=== PATIENT | female | born 1960 | race African-American/Black ===

== ENCOUNTER → 2017-12-05 15:30 | Outpatient (CLI) | payer BC, SELFPAY ==
--- NOTE | 2017-12-05 15:33 | HPBD_ITS ---
STUDY: DUAL ENERGY X-RAY ABSORPTIOMETRY / DXA REASON FOR EXAM: Female, 57 years old. The patient is postmenopausal. No loss of height. TECHNIQUE: Bone Mineral Density (BMD) measurements of lumbar spine and bilateral hips were obtained. COMPARISON: Comparison is made with prior study dated October 29, 2015. FINDINGS: Lumbar Spine (L1-L4): g/cm2 (0.927) / T-score (-2.3) / Z-score (-2.1) Findings are suggestive of osteopenia with a moderate fracture risk. Left Femur Total: g/cm2 (0.899) / T-score (-0.9) / Z-score (-1.1) Left Femoral Neck: g/cm2 (0.793) / T-score (-1.8) / Z-score (-1.6) Right Femur Total: g/cm2 (0.859) / T-score (-1.2) / Z-score (-1.5) Right Femoral Neck: g/cm2 (0.740) / T-score (-2.1) / Z-score (-2.0) The T-Scores on the most recent prior examination were: Lumbar Spine (L1-L4): There has been worsening of bone density since the previous examination. Left Femur Total: which represents a worsening of 5.3%. Right Femur Total: which represents a worsening of 3.4%. HPBD/Dexa Bone Density Study (HP) IMPRESSION: The patient is considered osteopenic as outlined below according to World Tang Organization (WHO) criteria with a moderate fracture risk. There has been worsening of bone density since the previous examination. Reference Information: The T-score is the number of standard deviations above or below the standard which is normal for young adults at their peak bone mineral density. The World Health Organization (WHO) interprets the T-scores as follows: Above -1 Normal bone density Between -1 and -2.5 Osteopenia Equal to / or below -2.5 Osteoporosis As a practical clinical guideline, osteopenia may be graded as follows: Mild -1 through -1.5 Moderate -1.6 through -2.0 Severe -2.1 through -2.4 The Z-score is the number of standard deviations above or below age-matched controls. A Z-score of less than -1.5 would be considered abnormal. References: 1. NIH Osteoporosis and Related Bone Diseases http://www.osteo.org 2. International Society for Clinical Densitometry http://www.iscd.org 3. National Osteoporosis Foundation http://www.nof.org Electronically Signed: Deny Whiteside MD at 8:41 EST Tel [phone], Service support ,
== END ==
PROVIDERS: Family Provider Internal Medicine; PCP Internal Medicine; Visit Provider Internal Medicine
DX: Z78.0 Asymptomatic menopausal state (principal)
CPT/HCPCS: 77080

== ENCOUNTER 2024-04-16 13:20 | Emergency (ER) | payer BC, SELFPAY ==
[2024-04-16 13:21] VITALS: BP 125/91; PULSE 65; RESP 18; TEMP 36.1; O2SAT 100; BMI 32.0
[2024-04-16 14:09] LABS: White Blood Cells 0 SEEN /hpf (0-5)
[2024-04-16 14:12] LABS: Color, Urine Yellow (Yellow); Glucose, Dipstick Normal (Normal); Ketone-Dipstick Negative (Negative); Leukocyte Esterase-Dipstick Negative /ul (Negative); Nitrite-Dipstick Negative (Negative); Occult Blood-Urine 10 /ul (Negative); Protein-Dipstick 15 mg/dl (Negative); Urine Bilirubin Dipstick Negative (Negative); Urine Clarity Sl. Cloudy (Clear); Urine Urobilinogen Normal (Normal)
[2024-04-16 14:13] LABS: Absolute Lymphocyte Count 0.97 X10^3/uL (0.83-4.51); Basophil# 0.03 X10^3/uL; Basophil% 0.3 % (0-1); Hematocrit 41.3 % (37-47); Hemoglobin 13.3 g/dL (12.0-15.0); Lymphocyte # 0.97 X10^3/ul (0.83-4.51); Lymphocyte % 8.4 % (19-41); Mean Corp Hgb Conc 32.2 g/dL (32-36); Mean Corpuscular Hgb 28.4 pg (27.0-32.0); Mean Corpuscular Volume 88.2 fL (81-99); Mean Platelet Vol. 11.2 fl (6.2-12.0); Monocyte# 0.53 X10^3/uL; Monocyte% 4.6 % (0-10); NRBC Flagged by Analyzer 0 % (0-5); Neutrophil # 10.04 X10^3/uL (2.7-7.7); Neutrophil % 86.4 % (47-70); Platelet Count 255 K/mm3 (150-450); RBC Distribution Width CV 13.8 % (11.6-14.6); RBC Distribution Width SD 44.2 fl (35.1-43.9); Red Blood Count 4.68 M/mm3 (4.2-5.4); White Blood Count 11.6 K/mm3 (4.4-11.0)
[2024-04-16 14:22] LABS: Bacteria 1+ /hpf (None Seen); Hyaline Cast 0-5 SEEN /lpf (0-5); Mucous, Urine 1+ /hpf (<or=2+); Red Blood Cells-Urine 0-5 SEEN /hpf (0-5); Squamous Epithelial Cells - UA 0-5 SEEN /hpf (5-10)
[2024-04-16 14:28] LABS: AST(SGOT) 16 U/L (15-37); Alanine Aminotransfer ALT/SGPT 18 U/L (13-56); Albumin, Serum 3.9 g/dL (3.2-5.0); Alkaline Phosphatase 75 U/L (45-117); Anion Gap 6 (5-15); BUN 11 mg/dL (7-18); BUN/Creat Ratio 9.8 RATIO (10-20); Calcium,Total 9.7 mg/dL (8.5-10.1); Chloride 109 mmol/L (98-107); Creatinine, Serum 1.12 mg/dL (0.55-1.02); EST Glomerular Filtration Rate 52 mL/min (>60); Est Glom Filt Rate - Afr Amer 63 mL/min (>60); Estimated Creatinine Clearance 48.87 ml/min; Glucose 111 mg/dL (74-106); Potassium 3.9 mmol/L (3.5-5.1); Protein, Total 7.9 g/dL (6.4-8.2); Sodium Level 144 mmol/L (136-145)
--- NOTE | 2024-04-16 14:59 | CT_ITS ---
STUDY: CT ABDOMEN AND PELVIS WITH CONTRAST REASON FOR EXAM: Female, 64 years old. Abdominal pain. Vomiting. RADIATION DOSAGE (If Supplied By Facility): CTDIvol = ( 18.06 ) mGy, DLP = ( 933.30 ) mGycm TECHNIQUE: Transaxial images were obtained through the abdomen and pelvis without oral contrast. 100 ml of 100mL Isovue-300 contrast was administered. Sagittal and coronal images were reconstructed. Individualized dose optimization techniques were used for this CT. COMPARISON: No relevant prior comparison study available FINDINGS: LOWER THORAX: The visualized lung bases are clear. The visualized portions of the heart and pericardium are within normal limits. GALLBLADDER / BILE DUCTS: The patient is status post cholecystectomy. There is no intrahepatic biliary duct dilatation. The common bile duct is normal in caliber. There are no calcified ductal stones. LIVER: The liver is within normal limits. There are no suspicious hepatic lesions. SPLEEN: The spleen is normal in size. PANCREAS: The pancreas is within normal limits. ADRENAL GLANDS: The adrenal glands are within normal limits. KIDNEYS / BLADDER: There are no renal or ureteral stones. There is no hydronephrosis. There are no focal renal lesions. The urinary bladder is partially distended and appears grossly unremarkable. STOMACH / BOWEL: There is a small hiatal hernia. There is no bowel obstruction or inflammation. The appendix is visualized and appears normal. PERITONEUM/RETROPERITONEUM: There is a small amount of free fluid. There is no free air or fluid collection. There is no abnormal soft tissue mass identified. There is no abdominal or pelvic lymphadenopathy. VESSELS: The aorta is normal in caliber. The IVC is unremarkable. BONES: There are no destructive osseous lesions. SOFT TISSUES: The visualized soft tissues are within normal limits. CT/Abdomen/Pelvis W IV Cont ONLY IMPRESSION: Small amount of free fluid. No free air or fluid collection. No bowel obstruction or inflammation. Normal appendix. Small hiatal hernia. Normal kidneys. No hydronephrosis. Electronically Signed: Bj Campa MD at 16:16 EDT ,
--- NOTE | 2024-04-16 15:00 | EDS_ITS ---
HPI HPI - GI History of Present Illness Chief Complaint: Abd Pain Informant: patient and spouse/S.O. Narrative Narrative: 64-year-old female presenting to the emergency room with a chief complaint of abdominal pain and vomiting. Patient states that last night around 0000 hrs. she developed a periumbilical abdominal pain. It continued to hurt and she went to work this morning. She states that after only a couple hours she needed to l eave work. She subsequently has developed some vomiting. She notes the abdominal pain seems to be significantly improving at the time of the examination. She notes that it had been radiating to her back. She states that she is not feeling nauseated. She denies any fevers. She had a small bowel movement which she describes as normal this morning. No recent travel o bad food exposures. Her is not feeling ill. She notes a prior cholecystectomy. PFSH PFS Home Medications ?Medication ?Instructions ?Recorded ?Last Taken ?Type metformin 500 mg tablet 500 mg PO 04/16/24 Unknown History rosuvastatin 5 mg tablet 5 mg PO DAILY 04/16/24 Unknown History Allergy/AdvReac Type Severity Reaction Status Date / Time No Known Allergies Allergy Verified 04/16/24 13:21 Surgical History (Updated 04/16/24 @ 15:[address] Chucho Moore DO) Hx of cholecystectomy Social History Smoking Status: Never smoker ROS ROS ED Constitutional Constitutional ED: Denies chills, fever(s) or weight loss Eyes Eyes: Denies change in vision or diplopia ENT ENT ED: Denies ear pain, rhinorrhea or sore throat Cardiovascular Cardiovascular: Denies chest pain, orthopnea, palpitations or racing heartbeat Respiratory/Chest Respiratory/Chest: Denies cough, dyspnea or orthopnea Gastrointestinal Gastrointestinal: Reports abdominal pain, nausea and vomiting; Denies diarrhea Genitourinary Genitourinary ED: Denies dysuria, hematuria or urinary frequency Musculoskeletal Musculoskeletal: Reports back pain; Denies arthralgias or myalgias Integumentary Denies abscess or rash Neurologic Neurologic: Denies headache(s) or weakness Psychiatric Psychiatric: Denies anxiety, depression, suicidal ideation or suicidal thoughts Endocrine Endocrinology: Denies polydipsia, polyphagia or polyuria Allergic/Immunologic Allergic/Immunologic ED: Denies mouth swelling, tongue swelling or urticaria EXAM Physical Exam Const Vital Signs: 04/16/24 13:21 04/16/24 15:13 04/16/24 16:54 Temperature 96.9 F L Temperature Source Temporal Pulse Rate 65 81 81 Respiratory Rate 18 18 18 Blood Pressure 125/91 H 121/80 H 125/91 H Blood Pressure Mean 102 93 102 Pulse Ox 100 98 98 Oxygen Delivery Method Room Air Room Air Room Air Positive well nourished and well developed General Appearance ED: well developed and NAD HEENT Reports normocephalic, head/scalp atraumatic and moist mucous membranes Eyes PERRL and EOMs intact bilaterally Neck no lymphadenopathy, supple and no JVD Resp normal respiratory effort and clear to auscultation bilaterally Cardio regular rate, regular rhythm and no murmurs GI normal to inspection, nondistended, normoactive bowel sounds and non-tender Inspection: Negative for abdominal distention Auscultation: normoactive bowel sounds Palpation: soft Back/Spine no CVA tenderness and normal ROM Extremity normal to inspection General Extremety ED: Negative for edema General Extremity: Negative for edema Neuro oriented x3 and CN's II-XII intact bilaterally Sensorium / Orientation: alert Motor Exam: strength 5/5 throughout Psych mental status grossly normal Mood & Affect: Negative for depressed or tearful Skin no rashes or lesions noted and no wounds MDM MDM MDM Narrative Medical decision making narrative: Differential diagnosis includes but not limited to viral and bacterial gastroenteritis, pancreatitis, bowel obstruction, choledocholithiasis, hepatitis, colitis, diverticulitis. White count returned slightly elevated 11.6 with no left shift. BMP shows a creatinine 1.12 glucose 111 and total bilirubin of 1.30. Lipase is normal at 29. Urinalysis shows no overt infection. CT of the abdomen pelvis with IV contrast was obtained. This shows a small amount of free fluid but otherwise no acute findings. Patient is feeling better than when she initially came in. Patient will be discharged home with instructions to monitor for new or worsening symptoms. If she is not improving worsening or has concerns I encouraged her to return to emergency. Patient is comfortable with this plan. History & Record Review Discussion w/independent historian: Patient and Significant other Lab Data Attestation: I reviewed the patient's lab results. Labs: Laboratory Results - last 24 hr 04/16/24 14:05 WBC 11.6 H RBC 4.68 Hgb 13.3 Hct 41.3 MCV 88.2 MCH 28.4 MCHC 32.2 RDW Std Deviation 44.2 H RDW Coeff of Klaus 13.8 Plt Count 255 MPV 11.2 Immature Gran % (Auto) 0.300 Neut % (Auto) 86.4 H Lymph % (Auto) 8.4 L [place] % (Auto) 4.6 Eos % (Auto) 0.0 Baso % (Auto) 0.3 Absolute Neuts (auto) 10.0 H Absolute Lymphs (auto) 0.97 Nucleated RBC % 0 Sodium 144 Potassium 3.9 Chloride 109 H Carbon Dioxide 29.0 Anion Gap 6 BUN 11 Creatinine 1.12 H Estim Creat Clear Calc 48.87 Est GFR (MDRD) Af Amer 63 Est GFR (MDRD) Non-Af 52 L BUN/Creatinine Ratio 9.8 L Glucose 111 H Calcium 9.7 Total Bilirubin 1.30 H Direct Bilirubin 0.24 AST 16 ALT 18 Alkaline Phosphatase 75 Total Protein 7.9 Albumin 3.9 Globulin 4.0 Albumin/Globulin Ratio 1.0 Lipase 29 Urine Color Yellow Urine Clarity Sl. Cloudy Urine pH 5.0 Ur Specific [place] 1.020 Urine Protein 15 H Urine Glucose (UA) Normal Urine Ketones Negative Urine Occult Blood 10 H Urine Nitrite Negative Urine Bilirubin Negative Urine Urobilinogen Normal Ur Leukocyte Esterase Negative Urine RBC 0-5 SEEN Urine WBC 0 SEEN Ur Squamous Epith Cells 0-5 SEEN Urine Bacteria 1+ Hyaline Casts 0-5 SEEN Urine Mucus 1+ Radiography Diagnostic Testing: Clinical Impression(s) from Imaging Studies Abdomen/Pelvis CT 04/16/24 14:59 IMPRESSION: Small amount of free fluid. No free air or fluid collection. No bowel obstruction or inflammation. Normal appendix. Small hiatal hernia. Normal kidneys. No hydronephrosis. Electronically Signed: Bj Campa MD at 16:16 EDT , Discharge Plan Triage Chief Complaint: Abd Pain ED Provider: Chucho Moore Dx/Rx/DC Orders Clinical Impression: Abdominal pain, Vomiting Instructions: ED Abdominal Pain Unkn Cause Fem Primary Care Provider: Jose Reyes Referrals: Jose Reyes MD [Primary Care Provider] - 1-2 Days if not improving Print Language: Tamazight Disposition Disposition: Home, Self Care
[2024-04-16 15:13] VITALS: BP 121/80; PULSE 81; RESP 18; O2SAT 98
[2024-04-16 15:34] LABS: Bilirubin, Direct 0.24 mg/dL (0.00-0.30); Lipase 29 U/L (13-75)
[2024-04-16 16:54] VITALS: BP 125/91; PULSE 81; RESP 18; O2SAT 98
== END 2024-04-16 17:13 | disposition home or self-care (01) ==
PROVIDERS: Emergency Provider Emergency Medicine; PCP Family Medicine; Visit Provider Emergency Medicine
DX: R10.9 Unspecified abdominal pain (principal); R11.10 Vomiting, unspecified; Z90.49 Acquired absence of other specified parts of digestive tract; Z79.84 Long term (current) use of oral hypoglycemic drugs; Z79.899 Other long term (current) drug therapy; K44.9 Diaphragmatic hernia without obstruction or gangrene
CPT/HCPCS: 74177; 80053; 81001; 82248; 83690; 85025; 99282; Q9967; A4216

== ENCOUNTER 2024-06-04 09:05 | Emergency (ER) | payer BC, SELFPAY ==
[2024-06-04 09:06] VITALS: BP 149/92; PULSE 89; RESP 17; TEMP 36.4; O2SAT 96; BMI 30.7
[2024-06-04 09:07] VITALS: BP 149/92; PULSE 89; RESP 17; TEMP 36.4; O2SAT 96
--- NOTE | 2024-06-04 09:21 | CT_ITS ---
STUDY: CT ABDOMEN AND PELVIS WITHOUT CONTRAST REASON FOR EXAM: Female, 64 years old. Kidney Stone RADIATION DOSAGE (If Supplied By Facility): CTDIvol = ( 9.18 ) mGy, DLP = ( 463.05 ) mGycm TECHNIQUE: Transaxial images were obtained from the dome of the diaphragm to the symphysis pubis without oral contrast, and without intravenous contrast. Sagittal and coronal images were reconstructed. Individualized dose optimization techniques were used for this CT. COMPARISON: Comparison is made with prior study dated April 16, 2024. FINDINGS: The visualized lung bases are unremarkable. The visualized portions of the heart are within normal limits. Normal liver. There are surgical clips in the gallbladder fossa consistent with a prior cholecystectomy. Normal spleen. Normal pancreas. Normal bilateral adrenal glands. Tiny bilateral nonobstructive intrarenal calculi. No evidence of hydronephrosis. There is a small hiatal hernia. Normal small intestine. Normal colon. The appendix is visualized and appears normal. There is atherosclerotic calcification of the abdominal aorta, without a demonstrated aneurysm. Normal inferior vena cava. Normal retroperitoneum. Normal urinary bladder. Small amount of ascitic fluid is once again seen in the pelvis. Findings suggestive of prior hysterectomy. Normal abdominal wall. There are mild degenerative changes of the visualized lumbar spine. CT/Abdomen/Pelvis without Cont IMPRESSION: Tiny bilateral nonobstructive intrarenal calculi. No ureteral obstruction is seen. Small amount of ascitic fluid was again seen in the pelvis. Electronically Signed: Deny Whiteside MD at 10:20 EDT ,
[2024-06-04] MEDS: Morphine 4 MG/ML Syringe IV (09:28)
[2024-06-04] MEDS: 0.9% Normal Saline (1000mL) 1,000 ML 250 ML IV (09:28)
[2024-06-04] MEDS: Ketorolac 30 MG/ML Syringe IV (09:28)
[2024-06-04] MEDS: Ondansetron 4 MG/2 ML Vial IV (09:28)
[2024-06-04 09:36] LABS: Absolute Lymphocyte Count 0.75 X10^3/uL (0.83-4.51); Absolute Neutrophil Count 9.2 X10^3/uL (2.0-7.7); Basophil# 0.03 X10^3/uL; Basophil% 0.3 % (0-1); Eosinophil# 0.01 X10^3/uL; Eosinophils% 0.1 % (0-5); Hematocrit 39.1 % (37-47); Hemoglobin 12.9 g/dL (12.0-15.0); Lymphocyte # 0.75 X10^3/ul (0.83-4.51); Lymphocyte % 7.2 % (19-41); Mean Corpuscular Hgb 28.9 pg (27.0-32.0); Mean Corpuscular Volume 87.5 fL (81-99); Monocyte% 3.8 % (0-10); NRBC Flagged by Analyzer 0 % (0-5); Neutrophil # 9.15 X10^3/uL (2.7-7.7); Neutrophil % 88.1 % (47-70); Platelet Count 258 K/mm3 (150-450); RBC Distribution Width CV 13.7 % (11.6-14.6); RBC Distribution Width SD 43.5 fl (35.1-43.9); Red Blood Count 4.47 M/mm3 (4.2-5.4); White Blood Count 10.4 K/mm3 (4.4-11.0)
[2024-06-04 10:07] LABS: Bacteria 0 SEEN /hpf (None Seen); Mucous, Urine 0 SEEN /hpf (<or=2+)
[2024-06-04 10:12] LABS: Color, Urine Yellow (Yellow); Glucose, Dipstick Normal (Normal); Ketone-Dipstick Negative (Negative); Leukocyte Esterase-Dipstick Negative /ul (Negative); Nitrite-Dipstick Negative (Negative); Occult Blood-Urine 10 /ul (Negative); Protein-Dipstick 15 mg/dl (Negative); Urine Bilirubin Dipstick Negative (Negative); Urine Clarity Clear (Clear); Urine Urobilinogen Normal (Normal)
[2024-06-04 10:24] LABS: Hyaline Cast 0-5 SEEN /lpf (0-5); Red Blood Cells-Urine 0-5 SEEN /hpf (0-5); Squamous Epithelial Cells - UA 0-5 SEEN /hpf (5-10); White Blood Cells 0-5 SEEN /hpf (0-5)
[2024-06-04 10:26] LABS: Anion Gap 7 (5-15); BUN 11 mg/dL (7-18); BUN/Creat Ratio 9.1 RATIO (10-20); Calcium,Total 9.4 mg/dL (8.5-10.1); Chloride 107 mmol/L (98-107); Creatinine, Serum 1.21 mg/dL (0.55-1.02); EST Glomerular Filtration Rate 48 mL/min (>60); Est Glom Filt Rate - Afr Amer 58 mL/min (>60); Estimated Creatinine Clearance 44.29 ml/min; Glucose 108 mg/dL (74-106); Potassium 3.4 mmol/L (3.5-5.1); Sodium Level 141 mmol/L (136-145)
[2024-06-04 11:00] VITALS: BP 111/68; PULSE 88; RESP 18; TEMP 36.6; O2SAT 98
[2024-06-04 11:20] LABS: AST(SGOT) 18 U/L (15-37); Alanine Aminotransfer ALT/SGPT 16 U/L (13-56); Albumin, Serum 3.7 g/dL (3.2-5.0); Alkaline Phosphatase 68 U/L (45-117); Bilirubin, Direct 0.28 mg/dL (0.00-0.30); Globulin 4.2 g/dL (2.2-4.2); Lipase 28 U/L (13-75); Protein, Total 7.9 g/dL (6.4-8.2)
--- NOTE | 2024-06-04 12:12 | EDS_ITS ---
HPI History of Present Illness Chief Complaint: Abd Pain Informant: patient Narrative Narrative: 64-year-old female presenting to the emergency room chief complaint of abdominal pain and vomiting. Patient notes pain in the left flank periumbilical region beginning last night into today. She has been experiencing vomiting. No diarrhea. No urinary symptoms. She was seen in the emergency department a little over a month ago with similar symptoms had negative evaluation. She states she followed up with primary care. Patient had to leave work today due to her symptoms. No reported fever. PFSH PFSH Home Medications ?Medication ?Instructions ?Recorded ?Last Taken ?Type metformin 500 mg tablet 500 mg PO 04/16/24 Unknown History rosuvastatin 5 mg tablet 5 mg PO DAILY 04/16/24 Unknown History hydrocodone-acetaminophen 5-325mg 1 tab PO Q6H PRN PRN Pain 3 days 06/04/24 Unknown Rx 5mg-325mg #10 TABLETS ondansetron 4 mg disintegrating 4 mg PO Q6H PRN PRN Nausea #10 tabs 06/04/24 Unknown Rx tablet Allergy/AdvReac Type Severity Reaction Status Date / Time No Known Allergies Allergy Verified 06/04/24 09:08 Surgical History Hx of cholecystectomy Social History Smoking Status: Never smoker ROS ROS ED Constitutional Constitutional ED: Denies chills, fever(s) or weight loss Eyes Eyes: Denies change in vision or diplopia ENT ENT ED: Denies ear pain, rhinorrhea or sore throat Cardiovascular Cardiovascular: Denies chest pain, orthopnea, palpitations or racing heartbeat Respiratory/Chest Respiratory/Chest: Denies cough, dyspnea or orthopnea Gastrointestinal Gastrointestinal: Reports abdominal pain, nausea and vomiting; Denies diarrhea Genitourinary Genitourinary ED: Denies dysuria, hematuria or urinary frequency Musculoskeletal Musculoskeletal: Reports other Details: Left flank pain ; Denies arthralgias or myalgias Integumentary Denies abscess or rash Neurologic Neurologic: Denies headache(s) or weakness Psychiatric Psychiatric: Denies anxiety, depression, suicidal ideation or suicidal thoughts Endocrine Endocrinology: Denies polydipsia, polyphagia or polyuria Allergic/Immunologic Allergic/Immunologic ED: Denies mouth swelling, tongue swelling or urticaria EXAM Physical Exam Const Vital Signs: 06/04/24 09:06 06/04/24 09:07 06/04/24 11:00 Temperature 97.5 F L 97.5 F L 97.9 F Temperature Source Temporal Temporal Temporal Pulse Rate 89 89 88 Respiratory Rate 17 17 18 Blood Pressure 149/92 H 149/92 H 111/68 Blood Pressure Mean 111 111 82 Pulse Ox 96 96 98 Oxygen Delivery Method Room Air Room Air Room Air Positive well nourished and well developed General Appearance ED: well developed HEENT Reports normocephalic, head/scalp atraumatic and moist mucous membranes Eyes PERRL and EOMs intact bilaterally Neck no lymphadenopathy, supple and no JVD Resp normal respiratory effort and clear to auscultation bilaterally Cardio regular rate, regular rhythm and no murmurs GI Inspection: Negative for abdominal distention Auscultation: normoactive bowel sounds Palpation: soft and tender periumbilical Back/Spine no CVA tenderness and normal ROM Extremity normal to inspection General Extremety ED: Negative for edema General Extremity: Negative for edema Neuro oriented x3 and CN's II-XII intact bilaterally Sensorium / Orientation: alert Motor Exam: strength 5/5 throughout Psych mental status grossly normal Mood & Affect: Negative for depressed or tearful Skin no rashes or lesions noted and no wounds MDM MDM MDM Narrative Medical decision making narrative: Differential diagnosis includes but not limited to enteritis gastroenteritis volvulus small bowel obstruction ureterolithiasis UTI diverticulitis colitis White count 10.4 hemoglobin is 12.9 platelet count of 258. Creatinine 1.21 with a BUN of 11 CO2 27 anion gap of 7 total bilirubin 1.5 direct bilirubin 0.28. Normal transaminases and alkaline phosphatase. Normal lipase. Urinalysis essentially normal. CT of the abdomen pelvis demonstrates of free fluid in the pelvis which is not a new finding. Nonobstructive renal calculi noted. Patient received IV fluids Zofran morphine and Toradol with improvement. This point patient will be discharged home with pain and nausea medication. She was given return instructions. Return 24 hours if worsening or no improvement. Follow-up with primary care History & Record Review Discussion w/independent historian: Patient Additional record(s) reviewed:: Prior ED visit and Prior labs Lab Data Attestation: I reviewed the patient's lab results. Labs: Laboratory Results - last 24 hr 06/04/24 06/04/24 09:30 10:00 WBC 10.4 RBC 4.47 Hgb 12.9 Hct 39.1 MCV 87.5 MCH 28.9 MCHC 33.0 RDW Std Deviation 43.5 RDW Coeff of Klaus 13.7 Plt Count 258 MPV 11.0 Immature Gran % (Auto) 0.500 Neut % (Auto) 88.1 H Lymph % (Auto) 7.2 L [place] % (Auto) 3.8 Eos % (Auto) 0.1 Baso % (Auto) 0.3 Absolute Neuts (auto) 9.2 H Absolute Lymphs (auto) 0.75 L Nucleated RBC % 0 Sodium 141 Potassium 3.4 L Chloride 107 Carbon Dioxide 27.0 Anion Gap 7 BUN 11 Creatinine 1.21 H Estim Creat Clear Calc 44.29 Est GFR (MDRD) Af Amer 58 L Est GFR (MDRD) Non-Af 48 L BUN/Creatinine Ratio 9.1 L Glucose 108 H Calcium 9.4 Total Bilirubin 1.50 H Direct Bilirubin 0.28 AST 18 ALT 16 Alkaline Phosphatase 68 Total Protein 7.9 Albumin 3.7 Globulin 4.2 Lipase 28 Urine Color Yellow Urine Clarity Clear Urine pH 6.0 Ur Specific [place] 1.020 Urine Protein 15 H Urine Glucose (UA) Normal Urine Ketones Negative Urine Occult Blood 10 H Urine Nitrite Negative Urine Bilirubin Negative Urine Urobilinogen Normal Ur Leukocyte Esterase Negative Urine RBC 0-5 SEEN Urine WBC 0-5 SEEN Ur Squamous Epith Cells 0-5 SEEN Urine Bacteria 0 SEEN Hyaline Casts 0-5 SEEN Urine Mucus 0 SEEN Radiography Diagnostic Testing: Clinical Impression(s) from Imaging Studies Abdomen/Pelvis CT 06/04/24 09:21 IMPRESSION: Tiny bilateral nonobstructive intrarenal calculi. No ureteral obstruction is seen. Small amount of ascitic fluid was again seen in the pelvis. Electronically Signed: Deny Whiteside MD at 10:20 EDT , Discharge Plan Triage Chief Complaint: Abd Pain ED Provider: Chucho Moore Dx/Rx/DC Orders Clinical Impression: Abdominal pain, Vomiting Instructions: ED Abdominal Pain Unkn Cause Fem, ED Vomiting (Adult) Prescriptions: New hydrocodone-acetaminophen 5-325 mg tablet 1 tab PO Q6H PRN PRN (Reason: Pain) 3 Days Qty: 10 0RF ondansetron 4 mg tablet,disintegrating 4 mg PO Q6H PRN PRN (Reason: Nausea) Qty: 10 0RF No Action metformin 500 mg tablet 500 mg PO rosuvastatin 5 mg tablet 5 mg PO DAILY Primary Care Provider: Jose Reyes Referrals: Jose Reyes MD [Primary Care Provider] - 3-5 Days Print Language: Bolivian Disposition Disposition: Home, Self Care
[2024-06-04 12:17] VITALS: BP 99/55; PULSE 68; RESP 18; TEMP 36.4; O2SAT 99
--- NOTE | 2024-06-05 09:24 | CASEMGMT ---
Received notification from [facility] pharmacy that the medication ordered by Dr. Moore of hydrocodone-acetamin 5-325 was on backorder/unavailable. TC to pt. 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 Explained what med was. Pt states she is no longer having pain and she does not need this medication. Pt denies further needs.
== END 2024-06-04 12:29 | disposition home or self-care (01) ==
PROVIDERS: Emergency Provider Emergency Medicine; PCP Family Medicine; Visit Provider Emergency Medicine
DX: R10.9 Unspecified abdominal pain (principal); R11.10 Vomiting, unspecified
CPT/HCPCS: 74176; 80048; 80076; 81001; 83690; 85025; 96361; 96374; 96375; 99283; J7030; J2405

== ENCOUNTER 2024-12-30 16:55 | Emergency (ER) | payer BC, SELFPAY ==
[2024-12-30 16:56] VITALS: BP 129/103; PULSE 84; RESP 18; TEMP 36.2; O2SAT 100
--- NOTE | 2024-12-30 17:20 | EKG12_ITS ---
Test Reason : NAUSEA Blood Pressure : */* mmHG Vent. Rate : 96 BPM Atrial Rate : 96 BPM P-R Int : 168 ms QRS Dur : 98 ms QT Int : 416 ms P-R-T Axes : 52 45 50 degrees QTcB Int : 525 ms Normal sinus rhythm Nonspecific ST and T wave abnormality Prolonged QT Abnormal ECG Confirmed by Tito Walker [id number]), script editor TIFFANY WAYNE ([id number]) on 12/31/2024 10:58:01 AM Referred By: Confirmed By: Tito Walker
--- NOTE | 2024-12-30 17:21 | CT_ITS ---
PROCEDURE: CTA ABD/PELVIS W/WO CONTRAST REASON FOR EXAM: 64-year-old female, ABDOMINAL AND FLANK PAIN, nausea and vomiting and back pain. TECHNIQUE: CTA imaging of the abdomen and pelvis with intravenous contrast. 3D reconstructions. IV CONTRAST: Isovue-300 COMPARISON: CT abdomen pelvis 06/04/2024. FINDINGS: Aorta: Abdominal aorta is normal in size. No significant atherosclerotic plaque. No evidence of aneurysm or dissection. Iliac Arteries: Iliac arteries are normal in size with no significant plaque or stenosis. Mild calcific plaque of the bilateral internal iliac arteries. The celiac artery, SMA and LENA are widely patent without focal stenosis. The single bilateral renal arteries are widely patent without focal stenosis or occlusion. Other Findings: The heart is normal in size. Bibasilar atelectasis. The liver is normal in size without arterially enhancing mass. Prior cholecystectomy. No hydronephrosis or nephrolithiasis. Prior hysterectomy. Moderate-sized hiatal hernia. The bowel loops are normal in caliber. Contrast material opacifies the proximal large bowel. No ascites or pneumoperitoneum. Normal appendix. Thoracolumbar spondylosis. CT/CTA Abd/Pelvis W/WO Contrast IMPRESSION: 1. Patent aortoiliac visceral arteries. 2. Moderate size hiatal hernia. One or more dose reduction techniques were used (e.g., Automated exposure contr ol, adjustment of the mA and/or kV according to patient size, use of iterative reconstruction technique). Reading Location: [id number]
--- NOTE | 2024-12-30 17:27 | EX.ED.DYSGE1 ---
HPI <YVAN De La Cruz - Last Filed: 12/30/24 20:07> History of Present Illness Chief Complaint: Nausea/Vomiting Narrative Narrative: 64-year-old female with PMH of HTN, HLD, DM2, GERD developed right flank pain 5 days ago on a cruise. She vomited once after eating a burger. The pain worsened when she got off the cruise yesterday in [place] and she was seen at an emergency room, reports having a CT scan negative for kidney stones. She was given Toradol and felt better and flew home through [place] to [place] arriving this morning. This morning she is having severe right flank pain again with nausea and vomiting. No chest pain or shortness of breath. No fever or chills. No urinary symptoms or bowel changes. PFSH <YVAN De La Cruz - Last Filed: 12/30/24 20:07> PFSH Home Medications ?Medication ?Instructions ?Recorded ?Last Taken ?Type metformin 500 mg tablet 500 mg PO 04/16/24 Unknown History rosuvastatin 5 mg tablet 5 mg PO DAILY 04/16/24 Unknown History hydrocodone-acetaminophen 5-325mg 1 tab PO Q6H PRN PRN Pain 3 days 06/04/24 Unknown Rx 5mg-325mg #10 TABLETS ondansetron 4 mg disintegrating 4 mg PO Q6H PRN PRN Nausea #10 tabs 06/04/24 Unknown Rx tablet diazepam 5 mg tablet (Valium) 5 mg PO BID PRN muscle spasm 5 12/30/24 Unknown Rx days #10 tabs Allergy/AdvReac Type Severity Reaction Status Date / Time No Known Allergies Allergy Verified 12/30/24 16:56 Surgical History Hx of cholecystectomy Social History Smoking Status: Never smoker ROS <YVAN De La Cruz - Last Filed: 12/30/24 20:07> ROS ED ROS Narrative Constitutional: Negative for fever, chills, malaise. CVS: Negative for chest pain, syncope. Respiratory: Negative for shortness of breath, cough. GI: Positive for nausea, vomiting. Negative for abdominal pain, diarrhea, constipation, melena, hematochezia. : Negative for dysuria, hematuria or frequency. EXAM <YVAN De La Cruz - Last Filed: 12/30/24 20:07> Physical Exam Narrative Exam Narrative: CONST: Patient rolling around in bed in pain. EYES: Normal inspection. NECK: Normal inspection. RESP: No respiratory distress, CTAB. CVS: Regular rate and rhythm, no murmur, no gallop. ABD: Soft and nontender, no guarding or rebound, nondistended. Back: Normal inspection, no reproducible tenderness of the spine or back. SKIN: Color normal, no rash, warm, dry, intact. EXTREMITIES: Normal appearance, no pedal edema. 2+ radial and DP pulses are symmetric. 5/5 strength, normal sensation. NEURO: Alert and answering questions appropriately. PSYCH: Normal affect. Const Vital Signs: 12/30/24 16:56 12/30/24 19:44 Temperature 97.2 F L 98.2 F Temperature Source Temporal Pulse Rate 84 71 Respiratory Rate 18 18 Blood Pressure 129/103 H 150/82 H Blood Pressure Mean 111 104 Pulse Ox 100 99 Oxygen Delivery Method Room Air <Dr. Carlos A Velez DO - Last Filed: 12/30/24 23:48> Physical Exam Const Vital Signs: 12/30/24 16:56 12/30/24 19:44 Temperature 97.2 F L 98.2 F Temperature Source Temporal Pulse Rate 84 71 Respiratory Rate 18 18 Blood Pressure 129/103 H 150/82 H Blood Pressure Mean 111 104 Pulse Ox 100 99 Oxygen Delivery Method Room Air MDM <YVAN De La Cruz - Last Filed: 12/30/24 20:07> [facility] Narrative Medical decision making narrative: History gathered from: Patient and Differential includes but not limited to kidney stone, dissection, intra-abdominal process, muscle spasm 64-year-old female presents with generalized back pain. It occurred earlier this week and she had workup at another emergency room out of state. Symptoms flared again today. She appears uncomfortable and is rolling around in bed. Vital signs are stable. She is a normal cardiopulmonary exam. Her abdomen is soft and nontender. She has no reproducible tenderness of her back. Her is massaging her back which seems to help slightly. Upper and lower extremities are neurovascularly intact. Symmetric pulses. She reports having a normal CT scan to rule out kidney stone earlier in the week so I ordered a CTA to rule out any vascular process. CTA is unremarkable. There is a moderate-sized hiatal hernia but this does not correlate with her symptoms. CBC unremarkable. CMP shows glucose of 122, CO2 20, gap 17. Electrolytes and renal function are normal. She was given IV fluids, IV Toradol x 1, IV morphine x 2, and p.o. Valium. She seems to be resting comfortably when observed from the hallway and she was able to ambulate easily to the bathroom. She reported some increased pain when I reexamined her but exam is still overall benign. I prescribed Valium and recommended [id number] pain relievers. Return to ED if symptoms worsen. She was discharged in stable condition. Lab Data Attestation: I reviewed the patient's lab results. Labs: Laboratory Results - last 24 hr 12/30/24 12/30/24 17:25 18:40 WBC 8.5 RBC 4.37 Hgb 12.8 Hct 38.5 MCV 88.1 MCH 29.3 MCHC 33.2 RDW Std Deviation 42.7 RDW Coeff of Klaus 13.2 Plt Count 214 MPV 11.4 Immature Gran % (Auto) 0.400 Neut % (Auto) 86.7 H Lymph % (Auto) 7.2 L [place] % (Auto) 5.0 Eos % (Auto) 0.1 Baso % (Auto) 0.6 Absolute Neuts (auto) 7.4 Absolute Lymphs (auto) 0.61 L Nucleated RBC % 0 Sodium 143 Potassium 3.6 Chloride 107 Carbon Dioxide 20.0 L Anion Gap 17 H BUN 13 Creatinine 1.20 Est GFR (MDRD) Non-Af 51 L BUN/Creatinine Ratio 10.9 Glucose 122 H Calcium 9.5 Urine Color Yellow Urine Clarity Clear Urine pH 8.0 Ur Specific [place] 1.010 Urine Protein 15 H Urine Glucose (UA) Normal Urine Ketones 15 H Urine Occult Blood 10 H Urine Nitrite Negative Urine Bilirubin Negative Urine Urobilinogen Normal Ur Leukocyte Esterase Negative Urine RBC 0-5 SEEN Urine WBC 0 SEEN Ur Squamous Epith Cells 0-5 SEEN Urine Bacteria 0 SEEN Urine Mucus 0 SEEN Radiography Diagnostic Testing: Clinical Impression(s) from Imaging Studies Abdomen/Pelvis CTA 12/30/24 17:21 IMPRESSION: 1. Patent aortoiliac visceral arteries. 2. Moderate size hiatal hernia. One or more dose reduction techniques were used (e.g., Automated exposure control, adjustment of the mA and/or kV according to patient size, use of iterative reconstruction technique). Reading Location: [id number] <Dr. Carlos A Velez, DO - Last Filed: 12/30/24 23:48> [facility] Narrative Medical decision making narrative: History gathered from: Patient and Differential includes but not limited to kidney stone, dissection, intra-abdominal process, muscle spasm 64-year-old female presents with generalized back pain. It occurred earlier this week and she had workup at another emergency room out of state. Symptoms flared again today. She appears uncomfortable and is rolling around in bed. Vital signs are stable. She is a normal cardiopulmonary exam. Her abdomen is soft and nontender. She has no reproducible tenderness of her back. Her is massaging her back which seems to help slightly. Upper and lower extremities are neurovascularly intact. Symmetric pulses. She reports having a normal CT scan to rule out kidney stone earlier in the week so I ordered a CTA to rule out any vascular process. CTA is unremarkable. There is a moderate-sized hiatal hernia but this does not correlate with her symptoms. CBC unremarkable. CMP shows glucose of 122, CO2 20, gap 17. Electrolytes and renal function are normal. She was given IV fluids, IV Toradol x 1, IV morphine x 2, and p.o. Valium. She seems to be resting comfortably when observed from the hallway and she was able to ambulate easily to the bathroom. She reported some increased pain when I reexamined her but exam is still overall benign. I prescribed Valium and recommended [id number] pain relievers. Return to ED if symptoms worsen. She was discharged in stable condition. Attending note: I have personally performed a face to face assessment of the patient and have reviewed the DRISS note. I personally made/approved the management plan and take responsibility for the patient management. I performed a substantive portion of the visit including all aspects of the following. My alcaraz findings include: Nontraumatic flank pain returning from a cruise. Started at the cruise. She came to [place] with outside emergency department kidney stone workup negative. Pain worsened today. Exam patient move around in bed in distress. No dyspnea lungs were normal heart regular. With reported negative renal stone workup with Noncon CT. Patient had CT angiogram ordered results negative. Did note hiatal hernia. Labs urine again negative. Initially treated with pain medicines, added Valium which helped her symptoms. She is able to ambulate to the restroom. She will prescribe continued Valium and outpatient follow-up with her doctor. Lab Data Labs: Laboratory Results - last 24 hr 12/30/24 12/30/24 17:25 18:40 WBC 8.5 RBC 4.37 Hgb 12.8 Hct 38.5 MCV 88.1 MCH 29.3 MCHC 33.2 RDW Std Deviation 42.7 RDW Coeff of Klaus 13.2 Plt Count 214 MPV 11.4 Immature Gran % (Auto) 0.400 Neut % (Auto) 86.7 H Lymph % (Auto) 7.2 L [place] % (Auto) 5.0 Eos % (Auto) 0.1 Baso % (Auto) 0.6 Absolute Neuts (auto) 7.4 Absolute Lymphs (auto) 0.61 L Nucleated RBC % 0 Sodium 143 Potassium 3.6 Chloride 107 Carbon Dioxide 20.0 L Anion Gap 17 H BUN 13 Creatinine 1.20 Est GFR (MDRD) Non-Af 51 L BUN/Creatinine Ratio 10.9 Glucose 122 H Calcium 9.5 Urine Color Yellow Urine Clarity Clear Urine pH 8.0 Ur Specific [place] 1.010 Urine Protein 15 H Urine Glucose (UA) Normal Urine Ketones 15 H Urine Occult Blood 10 H Urine Nitrite Negative Urine Bilirubin Negative Urine Urobilinogen Normal Ur Leukocyte Esterase Negative Urine RBC 0-5 SEEN Urine WBC 0 SEEN Ur Squamous Epith Cells 0-5 SEEN Urine Bacteria 0 SEEN Urine Mucus 0 SEEN Radiography Diagnostic Testing: Clinical Impression(s) from Imaging Studies Abdomen/Pelvis CTA 12/30/24 17:21 IMPRESSION: 1. Patent aortoiliac visceral arteries. 2. Moderate size hiatal hernia. One or more dose reduction techniques were used (e.g., Automated exposure control, adjustment of the mA and/or kV according to patient size, use of iterative reconstruction technique). Reading Location: [facility] Discharge Plan Triage Chief Complaint: Nausea/Vomiting Other Complaint: Back ED Midlevel Provider: Indira Oates ED Provider: Carlos A Velez Dx/Rx/DC Orders Clinical Impression: Back pain, Muscle spasm, Hernia, hiatal Instructions: Back Basics: A Healthy Spine, ED Muscle Spasm Prescriptions: New diazepam [Valium] 5 mg tablet 5 mg PO BID PRN (Reason: muscle spasm) 5 Days Qty: 10 0RF No Action hydrocodone-acetaminophen 5-325 mg tablet 1 tab PO Q6H PRN PRN (Reason: Pain) 3 Days Qty: 10 0RF ondansetron 4 mg tablet,disintegrating 4 mg PO Q6H PRN PRN (Reason: Nausea) Qty: 10 0RF metformin 500 mg tablet 500 mg PO rosuvastatin 5 mg tablet 5 mg PO DAILY Primary Care Provider: Jose Reyes Referrals: Jose Reyes MD [Primary Care Provider] - Activity Restrictions/Additional Instructions: Your blood work and CT scan of your abdomen and pelvis show no findings to explain your pain. I recommend Tylenol and Advil every 6 hours as needed. Use the Valium for breakthrough pain or muscle spasms. Follow-up with your primary care doctor this week. Print Language: Pakistani Disposition Disposition: Home, Self Care Discharge Date/Time: 12/30/24 20:00
[2024-12-30] MEDS: Ondansetron 4 MG/2 ML Vial IV (17:38)
[2024-12-30] MEDS: 0.9% Normal Saline (1000mL) 1,000 ML 999 ML IV (17:38)
[2024-12-30] MEDS: Ketorolac 15 MG/ML Vial IV ×2 (17:38→19:46)
[2024-12-30] MEDS: Morphine 4 MG/ML Syringe IV ×2 (17:38→18:21)
[2024-12-30 18:00] LABS: Absolute Lymphocyte Count 0.61 X10^3/uL (0.83-4.51); Absolute Neutrophil Count 7.4 X10^3/uL (2.0-7.7); Basophil# 0.05 X10^3/uL; Basophil% 0.6 % (0-1); Eosinophil# 0.01 X10^3/uL; Eosinophils% 0.1 % (0-5); Hematocrit 38.5 % (37-47); Hemoglobin 12.8 g/dL (12.0-15.0); Lymphocyte # 0.61 X10^3/ul (0.83-4.51); Lymphocyte % 7.2 % (19-41); Mean Corp Hgb Conc 33.2 g/dL (32-36); Mean Corpuscular Hgb 29.3 pg (27.0-32.0); Mean Corpuscular Volume 88.1 fL (81-99); Mean Platelet Vol. 11.4 fl (6.2-12.0); Monocyte# 0.43 X10^3/uL; NRBC Flagged by Analyzer 0 % (0-5); Neutrophil # 7.39 X10^3/uL (2.7-7.7); Neutrophil % 86.7 % (47-70); Platelet Count 214 K/mm3 (150-450); RBC Distribution Width CV 13.2 % (11.6-14.6); RBC Distribution Width SD 42.7 fl (35.1-43.9); Red Blood Count 4.37 M/mm3 (4.2-5.4); White Blood Count 8.5 K/mm3 (4.4-11.0)
[2024-12-30 18:14] LABS: Anion Gap 17 (5-15); BUN 13 mg/dL (4-19); BUN/Creat Ratio 10.9 RATIO (10-20); Calcium,Total 9.5 mg/dL (7.6-11.0); Chloride 107 mmol/L (98-108); EST Glomerular Filtration Rate 51 (>60); Glucose 122 mg/dL (70-99); Potassium 3.6 mmol/L (3.3-5.1); Sodium Level 143 mmol/L (133-145)
[2024-12-30] MEDS: diazePAM 5 MG Tablet PO (18:28)
[2024-12-30 18:44] LABS: Bacteria 0 SEEN /hpf (None Seen); Mucous, Urine 0 SEEN /hpf (<or=2+); White Blood Cells 0 SEEN /hpf (0-5)
[2024-12-30 19:06] LABS: Color, Urine Yellow (Yellow); Glucose, Dipstick Normal (Normal); Ketone-Dipstick 15 mg/dl (Negative); Leukocyte Esterase-Dipstick Negative /ul (Negative); Nitrite-Dipstick Negative (Negative); Occult Blood-Urine 10 /ul (Negative); Protein-Dipstick 15 mg/dl (Negative); Urine Bilirubin Dipstick Negative (Negative); Urine Clarity Clear (Clear); Urine Urobilinogen Normal (Normal)
[2024-12-30 19:44] VITALS: BP 150/82; PULSE 71; RESP 18; TEMP 36.8; O2SAT 99
[2024-12-30 19:54] LABS: Red Blood Cells-Urine 0-5 SEEN /hpf (0-5); Squamous Epithelial Cells - UA 0-5 SEEN /hpf (5-10)
== END 2024-12-30 20:00 | disposition home or self-care (01) ==
PROVIDERS: Physician Assistant; Emergency Provider Emergency Medicine; PCP Family Medicine; Visit Provider Emergency Medicine
DX: M54.9 Dorsalgia, unspecified (principal); E11.9 Type 2 diabetes mellitus without complications; K44.9 Diaphragmatic hernia without obstruction or gangrene; R11.2 Nausea with vomiting, unspecified; M62.838 Other muscle spasm; I10 Essential (primary) hypertension; E78.5 Hyperlipidemia, unspecified; K21.9 Gastro-esophageal reflux disease without esophagitis
CPT/HCPCS: 74174; 80048; 81001; 85025; 93005; 96374; 96375; 96376; 99284; Q9967; A4216; J2405

== ENCOUNTER 2024-12-31 15:29 | Emergency (ER) | payer BC, SELFPAY ==
[2024-12-31] VITALS (21 sets, daily range): BP systolic 96–137; BP diastolic 50–118; PULSE 45–69; RESP 13–20; TEMP 36.7–36.8; O2SAT 94–100; BMI 32.3
--- NOTE | 2024-12-31 15:48 | EKG12_ITS ---
Test Reason : GENERAL Blood Pressure : */* mmHG Vent. Rate : 55 BPM Atrial Rate : 55 BPM P-R Int : 136 ms QRS Dur : 86 ms QT Int : 476 ms P-R-T Axes : 25 3 57 degrees QTcB Int : 455 ms Sinus bradycardia T wave abnormality, consider anterior ischemia Abnormal ECG Confirmed by MARIELA LARSON, RIGO ([id number]), editor managing newspaper TIFFANY WAYNE ([id number]) on 01/06/2025 11:18:59 AM Referred By: Confirmed By: RIGO SIERRA MD
--- NOTE | 2024-12-31 15:50 | EX.ED.DYSGE1 ---
HPI History of Present Illness Chief Complaint: Flank Pain Informant: patient and spouse/S.O. Narrative Narrative: Patient sent in from PCP office for reevaluation. Note was seen yesterday in the ED. Patient returned from a cruise this past Monday. Started having some flank pain she went to [place] she was seen in the ER there. Kidney stone rule out was negative. She returned yesterday for increasing pain. She was worked up had a CT angiogram abdomen pelvis that was negative. Symptoms were improving with pain medicines and muscle relaxers. However per spouse symptoms worsened this morning. Went to PCP office. Due to discomfort sent here for reevaluation. Last dose of Valium 2 PM. Hypertension diabetes hyperlipidemia. Denies history of PE or DVT. States stational dyspnea. No upper back pain. No chest pains. Denies any pain down her legs. Per spouse she is on and off back pain since he normal for 40 years. Unclear if ever had an MRI. Prior similar symptoms: Yes PFSH PFSH Home Medications ?Medication ?Instructions ?Recorded ?Last Taken ?Type metformin 500 mg tablet 500 mg PO DAILY 04/16/24 12/30/24 History rosuvastatin 5 mg tablet 5 mg PO DAILY 04/16/24 12/30/24 History diazepam 5 mg tablet (Valium) 5 mg PO BID PRN muscle spasm 5 12/30/24 Unknown Rx days #10 tabs benazepril 20 mg tablet 20 mg PO DAILY 12/31/24 12/30/24 History gabapentin 300 mg capsule 300 mg PO QHS #30 caps 12/31/24 Unknown Rx hydrochlorothiazide 25 mg tablet 25 mg PO DAILY 12/31/24 12/30/24 History hydrocodone-acetaminophen 5-325mg 1 tab PO Q6H PRN Pain 12/31/24 Unknown History 5mg-325mg ondansetron 4 mg disintegrating 4 mg PO Q6H PRN Nausea 12/31/24 Unknown History tablet oxycodone-acetaminophen 5 mg-325 1 tab PO Q6H PRN PRN Pain 3 days 12/31/24 Unknown Rx mg tablet #12 TABLETS pantoprazole 40 mg tablet,delayed 40 mg PO DAILY 12/31/24 12/30/24 History release Allergy/AdvReac Type Severity Reaction Status Date / Time No Known Allergies Allergy Verified 12/31/24 15:31 Surgical History Hx of cholecystectomy Social History Smoking Status: Never smoker ROS ROS ED Constitutional Constitutional ED: Denies chills, fever(s) or sweats ENT ENT ED: Denies sore throat Cardiovascular Cardiovascular: Denies chest pain, leg edema, palpitations or racing heartbeat Respiratory/Chest Respiratory/Chest: Denies cough, dyspnea or dyspnea on exertion Gastrointestinal Gastrointestinal: Reports nausea and vomiting; Denies abdominal pain or diarrhea Genitourinary Genitourinary ED: Denies dysuria, hematuria or urinary frequency Musculoskeletal Musculoskeletal: Reports back pain; Denies extremity pain or neck pain Integumentary Denies rash or wounds Neurologic Neurologic: Denies headache(s), paresthesias or weakness EXAM Physical Exam Const Vital Signs: 12/31/24 15:31 12/31/24 17:30 12/31/24 17:45 Temperature 98.2 F Temperature Source Oral Pulse Rate 69 45 L 51 L Respiratory Rate 14 17 18 Blood Pressure 137/118 H 106/50 L 96/58 L Blood Pressure Mean 124 65 71 Pulse Ox 97 94 100 Oxygen Delivery Method Room Air 12/31/24 18:00 12/31/24 18:01 12/31/24 18:15 Temperature Temperature Source Pulse Rate 56 L 52 L Respiratory Rate 18 20 H Blood Pressure 112/71 99/64 Blood Pressure Mean 85 75 Pulse Ox 97 98 Oxygen Delivery Method Room Air 12/31/24 18:30 12/31/24 18:45 12/31/24 19:00 Temperature Temperature Source Pulse Rate 52 L 50 L 54 L Respiratory Rate 17 16 14 Blood Pressure 98/62 102/60 104/60 Blood Pressure Mean 74 73 74 Pulse Ox 98 96 97 Oxygen Delivery Method Room Air Room Air 12/31/24 19:15 12/31/24 19:30 12/31/24 19:31 Temperature Temperature Source Pulse Rate 55 L 51 L Respiratory Rate 16 17 Blood Pressure 105/59 L 105/57 L Blood Pressure Mean 73 72 Pulse Ox 98 97 Oxygen Delivery Method 12/31/24 19:45 12/31/24 20:00 12/31/24 20:15 Temperature 98.1 F Temperature Source Oral Pulse Rate 53 L 53 L 50 L Respiratory Rate 17 14 15 Blood Pressure 104/63 112/59 L 103/57 L Blood Pressure Mean 77 76 72 Pulse Ox 97 99 99 Oxygen Delivery Method Room Air 12/31/24 20:30 12/31/24 20:45 12/31/24 21:00 Temperature Temperature Source Pulse Rate 49 L 48 L 68 Respiratory Rate 13 18 19 H Blood Pressure 107/61 101/61 Blood Pressure Mean 75 74 Pulse Ox 98 97 Oxygen Delivery Method Room Air Room Air 12/31/24 21:15 12/31/24 21:30 12/31/24 21:45 Temperature Temperature Source Pulse Rate 49 L 53 L 49 L Respiratory Rate 16 13 19 H Blood Pressure Blood Pressure Mean Pulse Ox 98 97 99 Oxygen Delivery Method Positive well nourished and well developed Constitutional Narrative: Uncomfortable, nontoxic. General Appearance ED: well developed HEENT Reports moist mucous membranes normocephalic and atraumatic Eyes General Eye ED: Yes normal appearance of both eyes Neck full ROM Chest Wall inspection of chest normal and palpation of chest normal Chest: Negative for tenderness Resp normal respiratory effort and normal air movement Resp Narrative: Symmetric breath sounds. Effort and Inspection: symmetric chest movement; Negative for respiratory distress Cardio regular rate, regular rhythm and no murmurs Peripheral Pulses: pulses 2+ throughout GI normal to inspection, nondistended, normoactive bowel sounds and non-tender Palpation: Negative for guarding or rebound tenderness present Back/Spine Back/Spine Narrative: Unable to reproduce tenderness thoracic lumbar spine. No rib tenderness. No crepitus. Extremity normal to inspection General Extremety ED: Negative for edema or tenderness General Extremity: Negative for edema Neuro oriented x3 and no sensory deficits noted Sensorium / Orientation: awake and alert Skin no rashes or lesions noted and no wounds MDM MDM MDM Narrative Medical decision making narrative: Interventions / MDM: Differential diagnosis: Back pain, hiatal hernia, pulmonary nodule Diagnosis considered but do not suspect: N/A My EKG interpretation: Sinus rhythm rate of 55, no ST changes. T wave inversions anterior leads. Imaging independently reviewed and interpreted by myself: CT angiogram chest: No acute process. Subpleural right upper lobe nodule 3 mm. No PE no infarct. External documents reviewed: ED visit from yesterday CT angiogram abdomen pelvis with moderate hiatal hernia. No acute process. Test considered but not ordered:N/A ED course: Patient recurrent similar pain in her back. CT scan angiogram negative yesterday. She had recent travel. Discussed ordering CT angiogram the chest to rule out any possible pulmonary infarcts lower lobes. She agrees. IV established Dilaudid for pain control. Labs ordered. EKG sinus rhythm T wave versions anterior leads similar to previous. CT results negative. On reevaluation completely symptom-free feeling much better. T wave version anterior leads. I did add a troponin as this does not evaluate for atypical symptoms results returned at 16. With her symptoms ongoing for 2 days with this troponin, not likely ACS. Do not feel additional troponin is required. Reviewed her imagings from yesterday and today she did have mild osteoarthritic changes of her spine however no significant. I considered spinal radicular symptoms. Discussed this with her. She is a diabetic. Discussed adding gabapentin for neuropathic pain for which she agreed. She was ambulated emergency department with no return of symptoms. She has a known hiatal hernia seen Dr. Reid in the past report if she had any issues there would be plan for surgery. She is on a PPI. She will continue this. She is referred back to surgery. Patient second visit the ED I did discuss with her primary care team with on-call physician, discussed with her being symptom-free did not feel admission is required discussed possible spinal process discussed medication gabapentin she has Valium I will add oxycodone for symptom control. She is referred back to her surgeon. She will follow-up with her PCP. Discussed strict return precautions. We discussed the pulmonary nodule 3 mm. All questions were answered. Re-evaluation: stable Disposition discussed with patient/family/significant other: Patient and spouse Case discussed with consulting clinician: Primary care team This note was generated with Rep dictation software. It may contain incorrect words, spelling, and punctuation that were not noted in checking the note before signing. Lab Data Attestation: I reviewed the patient's lab results. Labs: Laboratory Results - last 24 hr 12/31/24 12/31/24 12/31/24 15:35 17:13 20:15 WBC 11.5 H RBC 4.42 Hgb 12.8 Hct 38.7 MCV 87.6 MCH 29.0 MCHC 33.1 RDW Std Deviation 42.2 RDW Coeff of Klaus 13.3 Plt Count 260 MPV 11.4 Immature Gran % (Auto) 0.400 Neut % (Auto) 79.7 H Lymph % (Auto) 10.1 L [place] % (Auto) 9.4 Eos % (Auto) 0.0 Baso % (Auto) 0.4 Absolute Neuts (auto) 9.1 H Absolute Lymphs (auto) 1.16 Nucleated RBC % 0 PT 14.8 INR 1.1 APTT 22.7 L Sodium 144 Potassium 3.5 Chloride 109 H Carbon Dioxide 23.7 Anion Gap 11 BUN 15 Creatinine 1.17 Estim Creat Clear Calc 46.97 L Est GFR (MDRD) Non-Af 53 L BUN/Creatinine Ratio 12.6 Glucose 96 Calcium 8.9 Troponin T High Sens 16 H Radiography Diagnostic Testing: Clinical Impression(s) from Imaging Studies Chest CTA 12/31/24 17:50 IMPRESSION: 1. No acute process. 2. Punctate subpleural nodule in the right upper lobe measuring 3 mm. [address] follow-up can be performed if the patient has clinical risk factors per Fleischner criteria. One or more dose reduction techniques were used (e.g., Automated exposure control, adjustment of the mA and/or kV according to patient size, use of iterative reconstruction technique). Reading Location: [facility] Discharge Plan Triage Chief Complaint: Flank Pain Other Complaint: Nausea/Vomiting ED Provider: Carlos A Velez Dx/Rx/DC Orders Clinical Impression: Back pain, Hernia, hiatal, Incidental pulmonary nodule, less than or equal to 3mm Instructions: What Is a Hiatal Hernia?, ED Back Care Tips Prescriptions: New oxycodone-acetaminophen 5-325 mg tablet 1 tab PO Q6H PRN PRN (Reason: Pain) 3 Days Qty: 12 0RF gabapentin 300 mg capsule 300 mg PO QHS Qty: 30 0RF No Action metformin 500 mg tablet 500 mg PO DAILY rosuvastatin 5 mg tablet 5 mg PO DAILY diazepam [Valium] 5 mg tablet 5 mg PO BID PRN (Reason: muscle spasm) 5 Days Qty: 10 0RF hydrocodone-acetaminophen 5-325 mg tablet 1 tab PO Q6H PRN (Reason: Pain) pantoprazole 40 mg tablet,delayed release (DR/EC) 40 mg PO DAILY benazepril 20 mg tablet 20 mg PO DAILY hydrochlorothiazide 25 mg tablet 25 mg PO DAILY ondansetron 4 mg tablet,disintegrating 4 mg PO Q6H PRN (Reason: Nausea) Primary Care Provider: Jose Reyes Referrals: Sussy Reid MD [Med Staff - Active Staff] - 1 Week Jose Reyes MD [Primary Care Provider] - 3-5 Days Activity Restrictions/Additional Instructions: You had worsening back pain last 2 days. You had a previous CT scan in [place] of abdomen pelvis negative. A CT angiogram abdomen pelvis yesterday was negative. You had a CT angiogram of your chest today that is negative. Incidental pulmonary nodule 3 mm noted. There is a noted hiatal hernia that is known to you. Noted mild degenerative changes of the spine. Your symptoms are better currently. Discussed with your primary care team. Continue gabapentin, continue your Valium as needed. Use oxycodone as needed. Follow-up with Dr. Reid your surgeon to rediscuss your hiatal hernia. Follow-up with your PCP for continued pain control as needed. Print Language: German Disposition Disposition: Home, Self Care Discharge Date/Time: 12/31/24 21:59
[2024-12-31] MEDS: HYDROmorphone 1 MG/ML Syringe IV (15:58)
[2024-12-31] MEDS: Ondansetron 4 MG/2 ML Vial IV (15:58)
[2024-12-31] MEDS: 0.9% Normal Saline (500mL Bag) 500 ML 1000 ML IV (15:58)
[2024-12-31 16:01] LABS: Absolute Lymphocyte Count 1.16 X10^3/uL (0.83-4.51); Absolute Neutrophil Count 9.1 X10^3/uL (2.0-7.7); Basophil# 0.05 X10^3/uL; Basophil% 0.4 % (0-1); Hematocrit 38.7 % (37-47); Hemoglobin 12.8 g/dL (12.0-15.0); Lymphocyte # 1.16 X10^3/ul (0.83-4.51); Lymphocyte % 10.1 % (19-41); Mean Corp Hgb Conc 33.1 g/dL (32-36); Mean Corpuscular Volume 87.6 fL (81-99); Mean Platelet Vol. 11.4 fl (6.2-12.0); Monocyte# 1.08 X10^3/uL; Monocyte% 9.4 % (0-10); NRBC Flagged by Analyzer 0 % (0-5); Neutrophil # 9.11 X10^3/uL (2.7-7.7); Neutrophil % 79.7 % (47-70); Platelet Count 260 K/mm3 (150-450); RBC Distribution Width CV 13.3 % (11.6-14.6); RBC Distribution Width SD 42.2 fl (35.1-43.9); Red Blood Count 4.42 M/mm3 (4.2-5.4); White Blood Count 11.5 K/mm3 (4.4-11.0)
[2024-12-31 16:21] LABS: International Normalized Ratio 1.1; Prothrombin Time (Protime)PT. 14.8 SECONDS (11.7-14.9)
[2024-12-31 16:27] LABS: Partial Thromboplast Time 22.7 Seconds (24.1-36.2)
[2024-12-31 17:39] LABS: Anion Gap 11 (5-15); BUN 15 mg/dL (4-19); BUN/Creat Ratio 12.6 RATIO (10-20); Calcium,Total 8.9 mg/dL (7.6-11.0); Carbon Dioxide 23.7 mmol/L (21.0-32.0); Chloride 109 mmol/L (98-108); Creatinine, Serum 1.17 mg/dL (0.70-1.20); EST Glomerular Filtration Rate 53 (>60); Estimated Creatinine Clearance 46.97 ml/min (50-250); Glucose 96 mg/dL (70-99); Potassium 3.5 mmol/L (3.3-5.1); Sodium Level 144 mmol/L (133-145)
--- NOTE | 2024-12-31 17:50 | CT_ITS ---
PROCEDURE: CTA chest REASON FOR EXAM: Pain TECHNIQUE: Multiple contiguous axial images of the chest were obtained after the administration of intravenous contrast. Two-dimensional and three-dimensional MIP coronal and sagittal reformatted images were reconstructed. Low-dose imaging technique was utilized. COMPARISON: None. FINDINGS: Heart size is within normal limits. No significant pericardial effusion or coronary artery calcifications. Normal caliber thoracic aorta. Normal caliber pulmonary arteries without filling defects. No suspicious adenopathy. Small hiatal hernia. Possible punctate bilateral renal calculi versus contrast. Superficial soft tissues are within normal limits. Central airways are patent. Mild bibasilar atelectasis. No patchy infiltrates, pleural effusion or pneumothorax. 3 mm subpleural nodule in the anterior right upper lobe. No pulmonary mass. No acute osseous abnormality. Mild degenerative changes of the spine. CT/CTA Chest W/WO Contrast IMPRESSION: 1. No acute process. 2. Punctate subpleural nodule in the right upper lobe measuring 3 mm[address] follow-up can be performed if the patient has clinical risk factors per Fleischner criteria. One or more dose reduction techniques were used (e.g., Automated exposure contr ol, adjustment of the mA and/or kV according to patient size, use of iterative reconstruction technique). Reading Location: [facility]
[2024-12-31] MEDS: Gabapentin 300 MG Capsule PO (21:01)
[2024-12-31 21:07] LABS: Troponin T High Sensitivity 16 ng/L (<=14)
== END 2024-12-31 21:59 | disposition home or self-care (01) ==
PROVIDERS: Emergency Provider Emergency Medicine; PCP Family Medicine; Visit Provider Emergency Medicine
DX: M54.9 Dorsalgia, unspecified (principal); E11.9 Type 2 diabetes mellitus without complications; K44.9 Diaphragmatic hernia without obstruction or gangrene; R11.2 Nausea with vomiting, unspecified; R91.1 Solitary pulmonary nodule; I10 Essential (primary) hypertension; E78.5 Hyperlipidemia, unspecified; Z79.899 Other long term (current) drug therapy
CPT/HCPCS: 71275; 80048; 84484; 85025; 85610; 85730; 93005; 96361; 96374; 96375; 99285; Q9967; J2405

== ENCOUNTER 2025-10-12 05:26 | Emergency (ER) | payer BC, SELFPAY ==
[2025-10-12 05:27] VITALS: BP 134/101; PULSE 99; RESP 20; TEMP 36.5; O2SAT 97; BMI 28.3
[2025-10-12 05:31] VITALS: BP 134/101; PULSE 98; RESP 20; TEMP 36.5; O2SAT 97
--- NOTE | 2025-10-12 05:35 | CT_ITS ---
PROCEDURE: CTA ABD/PELVIS W/WO CONTRAST 10/12/2025 REASON FOR EXAM: RIGHT FLANK PAIN TECHNIQUE: Procedure Code: [id number] Modality: CT Procedure: CTA ABD/PELVIS W/WO CONTRAST Multiplanar Sagittal and Coronal images were obtained. 3D and or MIPS post processing was performed CONTRAST: Isovue 370 VOLUME: 100 mL One or more dose reduction techniques were used (e.g., Automated exposure control, adjustment of the mA and/or kV according to patient size, use of iterative reconstruction technique). RADIATION DOSE SUMMARY: CTDlvol: 21.37+ 11.37 mGy DLP: 550.63 mGycm COMPARISON: 30 December 2024. FINDINGS: Aorta: The aorta tapers appropriately without evidence of hemodynamic significant stenosis, aneurysmal dilatation or occlusion. Minimal atherosclerotic vascular calcifications are noted. Iliac Arteries: Iliac arteries are normal in size with no significant plaque or stenosis. Celiac: Normal. SMA: Normal. LENA : Normal. Right Renal: Normal Left Renal: Normal Extravascular Findings: Bilateral dependent atelectasis. The liver, kidneys, adrenals, spleen, and pancreas are within normal limits for arterial technique. Mild colonic stool burden without evidence of bowel obstruction. A few sigmoid colonic diverticula. Probable hiatal hernia repair with abdominal wall streak artifact from likely laparoscopy port insertions. No abdominopelvic lymphadenopathy or ascites. Several pelvic phleboliths. Degenerative changes of the thoracolumbar spine with grade 1 anterior L4 on L5 spondylolisthesis with uncovering of the disc. L5-S1 broad-based disc bulge with disc space narrowing. CT/CTA Abd/Pelvis W/WO Contrast IMPRESSION: 1. No evidence of radiopaque urolithiasis or findings to suggest urinary obstr uction. 2. Previous cholecystectomy and hiatal hernia repair. 3. Sigmoid colonic diverticulosis. Reading Location: [id number]
--- NOTE | 2025-10-12 05:37 | EX.ED.DYSGE1 ---
HPI History of Present Illness Chief Complaint: Flank Pain Narrative Narrative: Patient was seen and examined after presenting to ED for right flank pain she states that she had a hernia repair done by a surgeon at [facility] However now she is having right flank pain she is nauseated vomiting. Patient has a history of hypertension hyperlipidemia GERD. [facility] Medical History DM II (diabetes mellitus, type II), controlled Home Medications ?Medication ?Instructions ?Recorded ?Last Taken ?Type metformin 500 mg tablet 500 mg PO DAILY 04/16/24 12/30/24 History rosuvastatin 5 mg tablet 5 mg PO DAILY 04/16/24 12/30/24 History benazepril 20 mg tablet 20 mg PO DAILY 12/31/24 12/30/24 History hydrochlorothiazide 25 mg tablet 25 mg PO DAILY 12/31/24 12/30/24 History pantoprazole 40 mg tablet,delayed 40 mg PO DAILY 12/31/24 12/30/24 History release ondansetron 4 mg disintegrating 4 mg PO Q8H PRN PRN Nausea #30 tabs 10/12/25 Unknown Rx tablet Allergy/AdvReac Type Severity Reaction Status Date / Time No Known Allergies Allergy Verified 10/12/25 05:31 Surgical History History of repair of hiatal hernia Hx of cholecystectomy Social History Smoking Status: Never smoker ROS ROS ED ROS Narrative Pertinent Positives: Right flank pain nausea vomiting Pertinent Negatives: Fevers chills chest pain pressure shortness of breath black or bloody stool urinary symptoms diarrhea The remainder of review of systems negative unless otherwise stated in the HPI above. Systems reviewed including constitutional, psychiatric, cardiovascular, respiratory, integument, HENT, gastrointestinal. EXAM Physical Exam Narrative Exam Narrative: Patient is afebrile hemodynamically stable does not appear toxic or in distress however she is constantly moving around holding her right flank. Abdomen itself is otherwise soft and nontender no palpable pulsatile mass. She has intact and equal MSPs in all of her extremities. Const Vital Signs: 10/12/25 05:27 10/12/25 05:31 10/12/25 06:31 Temperature 97.7 F L 97.7 F L 97.7 F L Temperature Source Oral Oral Oral Pulse Rate 99 98 87 Respiratory Rate 20 H 20 H 16 Blood Pressure 134/101 H 134/101 H 112/77 Blood Pressure Mean 112 112 88 Pulse Ox 97 97 99 Oxygen Delivery Method Room Air Room Air Room Air 10/12/25 07:00 10/12/25 07:27 Temperature 97.7 F L Temperature Source Oral Pulse Rate 68 90 Respiratory Rate 14 18 Blood Pressure 117/74 121/67 H Blood Pressure Mean 88 85 Pulse Ox 98 99 Oxygen Delivery Method Room Air Room Air MDM MDM MDM Narrative Medical decision making narrative: Nursing notes, triage notes, available previous documentation, and vital signs were reviewed. Any discrepancies noted were addressed. Differential Diagnoses: Need to consider nephrolithiasis pyelonephritis lower suspicion for aortic etiology but still consideration lower suspicion for diverticular disease cholecystitis pancreatitis or appendicitis Interventions: Dilaudid Zofran Fluids Given: 1 L normal saline Labs Reviewed: Slight leukocytosis 15.4 hemoglobin is 13.8 patient has an elevated anion gap of 20 creatinine is 1.2 no significant electrolyte derangements total bili at 1.5 but around there before slight transaminitis. Urine showing 50 ketones with 25 blood but no significant evidence of infection. Venous blood gas showing a pH of 7.32 pCO2 of 48 bicarb of 25. Lactic acid 1.4. Imaging Reviewed: CT angio of the abdomen and pelvis without acute pathology Previous Documentation Reviewed: None available or applicable at this time. ED Course: Patient presenting with symptoms as described above we will go ahead and get labs get a urine and also get CT angio. 0752: On reevaluation patient is doing a lot better is possible that this could be like a viral gastroenteritis picture or she could be developing some sort of pathology however as far as more clinically dangerous pathology including dissections or an obstructive uropathy patient does not have this so she will be given return precautions follow-up recommendations she is stable for discharge home This note was made utilizing voice recognition software. All attempts were made to correct spelling or other errors prior to note completion. However, due to the fast-paced nature of emergency medicine, some errors may still be present. Lab Data Labs: Laboratory Results - last 24 hr 10/12/25 10/12/25 10/12/25 05:35 06:20 06:34 WBC 15.4 H RBC 4.77 Hgb 13.8 Hct 39.9 MCV 83.6 MCH 28.9 MCHC 34.6 RDW Std Deviation 38.4 RDW Coeff of Klaus 12.7 Plt Count 299 MPV 11.2 Immature Gran % (Auto) 0.500 Neut % (Auto) 88.1 H Lymph % (Auto) 5.5 L [place] % (Auto) 5.5 Eos % (Auto) 0.0 Baso % (Auto) 0.4 Absolute Neuts (auto) 13.5 H Absolute Lymphs (auto) 0.85 Nucleated RBC % 0 Sodium 143 Potassium 3.7 Chloride 102 Carbon Dioxide 21.4 Anion Gap 20 H BUN 21 H Creatinine 1.27 H Estim Creat Clear Calc 40.00 L Est GFR (MDRD) Non-Af 48 L BUN/Creatinine Ratio 16.6 Glucose 140 H Lactic Acid 1.4 Calcium 10.2 Total Bilirubin 1.56 H AST 63 H ALT 72 H Alkaline Phosphatase 92 Total Protein 8.3 Albumin 4.6 Globulin 3.7 Albumin/Globulin Ratio 1.2 Urine Color Yellow Urine Clarity Clear Urine pH 6.0 Ur Specific [place] 1.020 Urine Protein 30 H Urine Glucose (UA) Normal Urine Ketones 50 H Urine Occult Blood 25 H Urine Nitrite Negative Urine Bilirubin Negative Urine Urobilinogen Normal Ur Leukocyte Esterase Negative Urine RBC 0 SEEN Urine WBC 0 SEEN Ur Squamous Epith Cells 0-5 SEEN Urine Bacteria 1+ Urine Mucus 0 SEEN ABG Data ABG results: ABG 10/12/25 06:51 Specimen Type WALLACE Sample Site Not entered VBG pH 7.33 VBG pO2 71 H VBG HCO3 25 VBG Total CO2 27 VBG O2 Sat (Calc) 93 H VBG Base Excess -1 POC Mix VBG pCO2 Pt Tmp 48.1 O2 Delivery Device Not entered Radiography Diagnostic Testing: Clinical Impression(s) from Imaging Studies Abdomen/Pelvis CTA 10/12/25 05:35 IMPRESSION: 1. No evidence of radiopaque urolithiasis or findings to suggest urinary obstruction. 2. Previous cholecystectomy and hiatal hernia repair. 3. Sigmoid colonic diverticulosis. Reading Location: [facility] Discharge Plan Triage Chief Complaint: Flank Pain ED Provider: Lars Mathias Dx/Rx/DC Orders Clinical Impression: Right flank pain, Nausea & vomiting Instructions: ED Vomiting (Adult) Prescriptions: New ondansetron 4 mg tablet,disintegrating 4 mg PO Q8H PRN PRN (Reason: Nausea) Qty: 30 0RF No Action metformin 500 mg tablet 500 mg PO DAILY rosuvastatin 5 mg tablet 5 mg PO DAILY pantoprazole 40 mg tablet,delayed release (DR/EC) 40 mg PO DAILY benazepril 20 mg tablet 20 mg PO DAILY hydrochlorothiazide 25 mg tablet 25 mg PO DAILY Primary Care Provider: Jose Reyes Referrals: Jose Reyes MD [Primary Care Provider, Medical] Activity Restrictions/Additional Instructions: I recommend that you follow-up with your primary care doctor please return if you are having worsening symptoms I am sending a prescription for the nausea medicine to your pharmacy. Print Language: [place] Disposition Disposition: Home, Self Care
[2025-10-12] MEDS: 0.9% Normal Saline (1000mL) 1,000 ML 999 ML IV ×2 (05:38→06:49)
[2025-10-12 05:42] LABS: Hematocrit 39.9 % (37-47); Hemoglobin 13.8 g/dL (12.0-15.0); Immature Granulocytes Count 0.080 X10^3/uL (0.0-0.0); Mean Corp Hgb Conc 34.6 g/dL (32-36); Mean Corpuscular Volume 83.6 fL (81-99); Mean Platelet Vol. 11.2 fl (6.2-12.0); NRBC Flagged by Analyzer 0 % (0-5); Platelet Count 299 K/mm3 (150-450); RBC Distribution Width CV 12.7 % (11.6-14.6); RBC Distribution Width SD 38.4 fl (35.1-43.9); Red Blood Count 4.77 M/mm3 (4.2-5.4); White Blood Count 15.4 K/mm3 (4.4-11.0)
--- OUTSIDE RECORDS SUMMARY | 2025-10-12 05:52 | XMS RPT_ITS | CCD ---
Author Organization [facility] Care Team Providers Care Patternmaker All Around Name Role Phone Ines Reynoso Unavailable Chevy Bravo Unavailable Jocelyn Zelaya Unavailable Reema Auguste Unavailable Bj Jacob Unavailable Nicky Thomas Unavailable Unavailable Unavailable Unavailable Jose Bullard MD Primary Care Provider Jose Bullard MD Primary Care Provider Jose Bullard MD Primary Care Provider Jose Bullard MD Primary Care Provider Jose Bullard MD Primary Care Provider JOSE BULLARD Primary Care Unavailable PAULO HERZOG Attending Unavailable KIP ZHANG Referring Unavailable Ayaan DYEHOUSE WORKER.Melany SELF Unavailable Suppan DYEHOUSE WORKER.Leila SELF A Unavailable Jose Bullard Primary Care Unavailable Chucho Moore Attending Unavailable Chucho Moore Attending Unavailable Jose Bullard Primary Care Unavailable Carlos A Velez Attending Unavailable Jose Bullard Primary Care Unavailable Carlos A Velez Attending Unavailable Jose Bullard Primary Care Unavailable Dr. Jose Bullard MD Primary Care Provider Dr. Carlos A Velez DO Emergency Provider KIP ZHANG Attending Unavailable MELANY KUO Referring Unavailable JOSE BULLARD Primary Care Unavailable JOSE BULLARD Primary Care Unavailable MELANY KUO Attending Unavailable ALEAH, JOSE Ruiz Primary Care Unavailable ALEAH, JOSE Ruiz Primary Care Unavailable ALEAH, JOSE Ruiz Referring Unavailable ALEAH, JOSE Ruiz Primary Care Unavailable ALEAH, JOSE Ruiz Attending Unavailable ALEAH, JOSE Ruiz Primary Care Unavailable KYLE ALEXANDRA Referring Unavailable ALEAH, JOSE Ruiz Primary Care Unavailable KYLE ALEXANDRA Attending Unavailable ALEAH, JOSE Ruiz Referring Unavailable ALEAH, JOSE Ruiz Primary Care Unavailable ALEAH, JOSE Ruiz Attending Unavailable ALEAH, JOSE Ruiz Primary Care Unavailable LEILA MANSFIELD Attending Unavailable ALEAH, JOSE Ruiz Primary Care Unavailable ALEAH, JOSE Ruiz Referring Unavailable ALEAH, JOSE Ruiz Primary Care Unavailable ALEAH, JOSE Ruiz Attending Unavailable ALEAH, JOSE Ruiz Primary Care Unavailable ERNESTINA GRIMALDO Attending Unavailable IBRAHIMA, KYLE Arndt Referring Unavailable ALEAH, JOSE Ruiz Primary Care Unavailable IBRAHIMA, KYLE Arndt Referring Unavailable ALEAH, JOSE Ruiz Primary Care Unavailable ERNESTINA GRIMALDO Attending Unavailable ALEAH, JOSE Ruiz Primary Care Unavailable ERNESTINA GRIMALDO Attending Unavailable ERNESTINA GRIMALDO Referring Unavailable ALEAH, JOSE Ruiz Primary Care Unavailable ERNESTINA GRIMALDO Admitting Unavailable REERNESTINA SINGLETON Attending Unavailable REERNESTINA SINGLETON Referring Unavailable ALEAH, JOSE Ruiz Primary Care Unavailable Allergies Allergy Classification Reported Allergen(s) Allergy Type Date of Onset Reaction(s) Facility NEGATED: Highlighted row has been ruled out! (1 source) allergy to substance 4 [facility] Work Phone: NEGATED: Highlighted row has been ruled out! (1 source) drug allergy [facility] Work Phone: NEGATED: Highlighted row has been ruled out! (1 source) allergy to substance 4 [facility] Work Phone: NEGATED: Highlighted row has been ruled out! (1 source) drug allergy [facility] Work Phone: NEGATED: Highlighted row has been ruled out! (1 source) allergy to substance 4 [facility] Work Phone: NEGATED: Highlighted row has been ruled out! (1 source) drug allergy [facility] Work Phone: Medications Current Medications Medication Drug Class(es) Dates Sig (Normalized) Sig (Original) acetaminophen 325 mg / HYDROcodone bitartrate 5 mg oral tablet (3 sources) Opioid Agonist Start: 06-04-2024 End: 12-31-2024 Hydrocodone-Acet aminophen 5-325 mg tablet Active 1 {tbl} PO EVERY 6 HOURS as needed for Pain December 31, 2024 12:00am acetaminophen 325 mg / oxyCODONE hydrochloride 5 mg oral tablet (1 source) Opioid Agonist Start: 12-31-2024 take 1 tablet by mouth every six hours as needed for pain Oxycodone-Acetam inophen 5-325 mg tablet Active 1 {tbl} PO EVERY 6 HOURS NEEDED as needed for Pain 12 December 31, 2024 benazepril hydrochloride 20 mg oral tablet (20 sources) Angiotensin Converting Enzyme Inhibitor Start: 11-17-2023 End: 09-23-2025 take 1 tablet by mouth once daily benazepril (LOTENSIN) 20 mg tablet Indications: Hypertension, essential Take 1 tablet by mouth once daily. 90 tablet 3 09/23/2024 09/23/2025 Active Start: 06-14-2021 End: 11-11-2023 take 1 tablet by mouth once daily benazepril (LOTENSIN) 20 mg tablet Indications: Hypertension, essential Take 1 tablet by mouth once daily. 90 tablet 1 06/14/2021 04/29/2022 Discontinued Start: 01-29-2018 take 1 tablet by brandy th once daily Benazepril HCl 20 MG Oral Tablet 1 (one) Tablet daily for 90 days Quantity: 90 {Tablet} Refills: 3 Ordered: 29-Jan-2018 Fast DO, Ines A Fast DO, Ines A Start : 29-Jan-2018 Active Comment on above: Take 1 tablet by brandy th once daily. calcium phosphate dibas/vit D3 (VITAMIN D, WITH CALCIUM, ORAL) (16 sources) calcium phosphat e dibas/vit D3 (VITAMIN D, WITH CALCIUM, ORAL) Take by mouth. Active diazePAM 5 mg oral tablet (2 sources) Benzodiazepine Start : 12-30 take 1 tablet by mouth twice daily as needed for muscle spasms Diazepam (Valium) 5 mg tablet Active 5 mg PO TWICE A DAY as needed for muscle spasm 10 December 30, 2024 12:00am hydroCHLOROthiazide 25 mg oral tablet (20 sources) Thiazide Diuretic Start : 11-17 End: 09-23 take 1 tablet by mouth once daily hydroCHLOROthiazide 25 mg tablet Indications: Hypertension, essential Take 1 tablet by mouth once daily. 90 tablet 3 09/23/2024 09/23/2025 Active Start: 06-14-2021 End: 11-11-2023 take 1 tablet by mouth once daily hydroCHLOROthiazide (HYDRODIURIL, ESIDRIX) 25 mg tablet Indications: Hypertension, essential Take 1 tablet by mouth once daily. 90 tablet 1 06/14/2021 04/29/2022 Discontinued Start: 05-08-2017 End: 08-06-2017 take 1 tablet by mouth once daily HydroCHLOROthiazide 25 MG Oral Tablet 1 Tablet qd for 90 days Quantity: 90 {Tablet} Refills: 0 Ordered: 08-May-2017 Kayley Mccain Start : 08-May-2017 End : 06-Aug-2017 Inactive Comment on above: Take 1 tablet by brandy th once daily. metFORMIN hydrochloride 500 mg oral tablet (20 sources) Biguanide Start: End: take 1 tablet by mouth once daily at breakfast metFORMIN (GLUCOPHAGE) 500 mg tablet Indications: Controlled type 2 diabetes mellitus without complication, unspecified whether parts counterman insulin use (HCC) Take 1 tablet by mouth daily with breakfast. 90 tablet 3 09/23/2024 09/23/2025 Active Start: 05-15-2023 take 1 tablet by brandy th once daily at breakfast metFORMIN (GLUCOPHAGE) 500 mg tablet Indications: Controlled type 2 diabetes mellitus without complication, unspecified whether parts counterman insulin use (HCC) Take 1 tablet by mouth daily with breakfast. 90 tablet 1 05/15/2023 Active Start: 06-14-2021 End: 01-19-2023 take 1 tablet by mouth once daily at breakfast metFORMIN (GLUCOPHAGE) 500 mg tablet Indications: Controlled type 2 diabetes mellitus without complication, unspecified whether half-way insulin use (HCC) Take 1 tablet by mouth daily with breakfast. 90 tablet 1 06/14/2021 08/02/2022 Discontinued Start: 07-05-2017 End: 10-03-2017 take 1 tablet by mouth every twenty-four hours at mealtime MetFORMIN HCl ER 500 MG Oral Tablet Extended Release 24 Hour 1 (one) Tablet ER 24HR q annamaria meal for 90 days Quantity: 90 {Tablet} Refills: 0 Ordered: 05-Jul-2017 Kayley Mccain Start : 05-Jul-2017 End : 03-Oct-2017 Inactive Comment on above: Take 1 tablet by brandy th daily with breakfast. Multivitamin preparation (20 sources) multivitamin (DA BELEM VITAMIN ORAL) Take by mouth once daily. Active multivitamin (DA BELEM VITAMIN ORAL) Take by mouth once daily. 0 Active Comment on above: Take by mouth once d aily. ondansetron 4 mg disintegrating oral tablet (3 sources) Serotonin-3 Receptor Antagonist Start: 4 End: 5 take 1 tablet by mouth every six hours as needed for nausea Ondansetron 4 mg tablet,disintegratin g Active 4 mg PO EVERY 6 HOURS as needed for Nausea December 31, 2024 12:00am pantoprazole 40 mg delayed release oral tablet (20 sources) Proton Pump Inhibitor Start: 4 End: 5 take 1 tablet by mouth once daily pantoprazole DR (PROTONIX) 40 mg tablet Indications: Gastritis without bleeding, unspecified chronicity, unspecified gastritis type Take 1 tablet by mouth once daily. 90 tablet 3 09/23/2024 09/23/2025 Active Start: 11-17-2023 End: 09-18-2024 take 1 tablet by mouth every other day pantoprazole DR (PROTONIX) 40 mg tablet Indications: GERD without esophagitis , Esophageal dysphagia Take 1 tablet by mouth every other day. 15 tablet 5 03/22/2024 06/29/2024 Discontinued Start: 06-14-2021 End: 11-11-2023 take 1 tablet by mouth every other day pantoprazole DR (PROTONIX) 40 mg tablet Indications: GERD without esophagitis Take 1 tablet by mouth every other day. 90 tablet 1 06/14/2021 04/29/2022 Discontinued Start: 01-03-2018 End: 04-03-2018 take 1 tablet by mouth every other day Protonix 40 MG Oral Tablet Delayed Release 1 (one) Tablet DR qod for 90 days Quantity: 45 {Tablet} Refills: 0 Ordered: 03-Jan-2018 Kayley Mccain Start : 03-Jan-2018 End : 03-Apr-2018 Inactive Comment on above: Take 1 tablet by brandy th every other day. rosuvastatin calcium 5 mg oral tablet (20 sources) HMG-CoA Reductase Inhibitor Start: 4 End: take 1 tablet by mouth once daily rosuvastatin (CRESTOR) 5 mg tablet Indications: Hyperlipidemia, mixed Take 1 tablet by mouth once daily. 90 tablet 3 09/23/2024 09/23/2025 Active Start: 06-14-2021 End: 11-11-2023 take 1 tablet by mouth once daily rosuvastatin (CRESTOR) 5 mg tablet Indications: Hyperlipidemia, mixed Take 1 tablet by mouth once daily. 90 tablet 1 06/14/2021 04/29/2022 Discontinued Start: 01-29-2018 End: 02-28-2018 take 1 tablet by mouth once daily Crestor 5 MG Oral Tablet 1 (one) Tablet Tablet qd for 30 days Quantity: 30 {Tablet} Refills: 0 Ordered: 29-Jan-2018 Adán Kayley Start : 29-Jan-2018 End : 28-Feb-2018 Inactive Comment on above: Take 1 tablet by [facility] once daily. Completed/Discontinued Medications Medication Drug Class(es) Dates Sig (Normalized) Sig (Original) amLODIPine 5 mg oral tablet (1 source) Dihydropyridine Calcium Channel Vincent Start: 05-11-2015 End: 05-11-2015 take 1 tablet by mouth once daily AMLODIPINE BESYLATE, 5MG (Oral Tablet) 1 (one) Tablet daily for 90 days Quantity: 90 {Tablet} Refills: 3 Ordered: 11-May-2015 Fast DO, Ines A Fast DO, Ines A Start : 11-May-2015 End : 11-May-2015 Discontinued amLODIPine 5 mg / benazepril hydrochloride 40 mg oral capsule (1 source) Dihydropyridine Calcium Channel Vincent, Angiotensin Converting Enzyme Inhibitor Start: 07-03-2012 End: 07-03-2012 take 1 capsule by mouth once daily AMLODIPINE BESY-BENAZEPRIL HCL, 5-40MG (Oral Capsule) 1 Capsule qd for 0 days Quantity: 90 {Capsule} Refills: 3 Ordered: 03-Jul-2012 Nicky Thomas Start : 03-Jul-2012 End : 03-Jul-2012 Discontinued amoxicillin 875 mg / clavulanate 125 mg oral tablet (1 source) Penicillin-class Antibacterial Start: 07-03-2012 End: 07-03-2012 take 1 tablet by mouth twice daily AUGMENTIN, 875-125MG (Oral Tablet) 1 (one) Tablet bid for 0 days Quantity: 28 {Tablet} Refills: 0 Ordered: 03-Jul-2012 Nicky Thomas Start : 03-Jul-2012 End : 03-Jul-2012 Discontinued calcium carbonate 1500 mg oral tablet (1 source) take 1 tablet by mouth three times daily CALTRATE 600, 1500MG (Oral Tablet) 1 tab tid (1500 MG) Active cholecalciferol 1000 unt oral capsule (1 source) Vitamin D Start: 09-08-2017 take 2 capsules by mouth once daily Vitamin D3 1000 UNIT Oral Capsule 2 (two) Capsule qd for 0 days Quantity: 60 {Capsule} Refills: 0 Ordered: 08-Sep-2017 Fast DO, Ines A Fast DO, Ines A Start : 08-Sep-2017 Active clarithromycin 500 mg oral tablet (1 source) Macrolide Antimicrobial Start: 07-26-2010 End: 09-13-2010 take 2 tablets by mouth once daily BIAXIN XL, 500MG (Oral Tablet Extended Release 24 Hour) 2 (two) Tablet ER 24HR qd for 0 days Quantity: 20 {Tablet_ER_24HR} Refills: 0 Ordered: 13-Sep-2010 Bhavani Puente LPN Start : 26-Jul-2010 End : 13-Sep-2010 Inactive gabapentin 300 mg oral capsule (4 sources) Anti-epileptic Agent Start: 12-31-2024 End: 03-24-2025 take 1 capsule by mouth once daily at bedtime gabapentin (NEURONTIN) 300 mg capsule Take 300 mg by mouth daily at bedtime. 01/01/2025 03/24/2025 Discontinued (Course of therapy completed) homatropine methylbromide 0.3 mg/ml / HYDROcodone bitartrate 1 mg/ml oral solution (1 source) Opioid Agonist, Cholinergic Muscarinic Agonist Start: 07-26-2010 End: 09-13-2010 HYCODAN, 5-1.5MG/5ML (Oral Syrup) 5cc Syrup qid prn for 0 days Quantity: 150 {Milliliter} Refills: 0 Ordered: 13-Sep-2010 Bhavani Puente LPN Start : 26-Jul-2010 End : 13-Sep-2010 Discontinued Comments: This order discontinued per [facility]. Comment on above: This order discontin ued per [facility]. irbesartan 300 mg oral tablet (1 source) Angiotensin 2 Receptor Vincent Start: 04-13-2010 End: 04-13-2010 take 1 tablet by mouth once daily AVAPRO, 300MG (Oral Tablet) 1 (one) Tablet Daily for 90 days Quantity: 90 {Tablet} Refills: 3 Ordered: 13-Apr-2010 Fast DO, Ines A Fast DO, Ines A Start : 13-Apr-2010 End : 13-Apr-2010 Discontinued lisinopril 20 mg oral tablet (1 source) Angiotensin Converting Enzyme Inhibitor Start: 06-29-2011 End: 06-29-2011 take 1 tablet by mouth twice daily LISINOPRIL, 20MG (Oral Tablet) 1 (one) Tablet bid for 0 days Quantity: 60 {Tablet} Refills: 3 Ordered: 29-Jun-2011 Fast DO, Ines A Fast DO, Ines A Start : 29-Jun-2011 End : 29-Jun-2011 Discontinued mometasone furoate 0.05 mg/actuat metered dose nasal spray (1 source) Corticosteroid Start: 12-08-2008 End: 02-08-2011 NASONEX, 50MCG/ACT (Nasal Suspension) 2 (two) Suspension qd for 0 days Quantity: 1 {Suspension} Refills: 0 Ordered: 08-Feb-2011 Nicky Thomas Start : 08-Dec-2008 End : 08-Feb-2011 Inactive polyethylene glycol 3350 571397 mg / potassium chloride 2970 mg / sodium bicarbonate 6740 mg / sodium chloride 5860 mg / sodium sulfate 04024 mg powder for oral solution (1 source) Osmotic Laxative Start: 11-22-2022 End: 11-22-2022 peg 3350-Electrolytes (GOLYTELY) 236-22.74-6.74 -5.86 gram suspension Indications: Screening for colon cancer Take 4,000 mL by mouth one time only for 1 dose. Refer to printed prep instructions from your provider. 4000 mL 0 11/22/2022 11/22/2022 Comment on above: Take 4,000 mL by brandy th one time only for 1 dose. Refer to printed prep instructions from your provider. traZODone hydrochloride 50 mg oral tablet (1 source) Serotonin Reuptake Inhibitor Start: 09-02-2016 End: 05-22-2017 take 1-2 tablets by mouth once daily at bedtime as needed TraZODone HCl 50 MG Oral Tablet 1-2 Tablet qhs prn for 90 days Quantity: 188 {Tablet} Refills: 3 Ordered: 22-May-2017 Nicky Thomas Start : 02-Sep-2016 End : 22-May-2017 Discontinued triamcinolone (1 source) Corticosteroid Start: 10-25-2010 End: 02-08-2011 NASACORT AQ, 55MCG/ACT (Nasal Aerosol Solution) 2 (two) Aerosol Soln qd for 0 days Quantity: 1 {Aerosol_Soln} Refills: 1 Ordered: 08-Feb-2011 Nicky Thomas Start : 25-Oct-2010 End : 08-Feb-2011 Inactive Problems Active Problems Problem Classification Problem Date Documented Date Episodic/Chronic Abdominal hernia (20 sources) Hiatal hernia; Translations: [Diaphragmatic hernia without obstruction or gangrene] Onset: 4 06-26-2024 Episodic Administrative/social admission (2 sources) Medical examinations/reports status; Translations: [Patient encounter status] Resolved: 1 12-15-2017 Episodic Chronic kidney disease (20 sources) Chronic kidney disease stage 3; Translations: [Stage 3 chronic kidney disease, unspecified whether stage 3a or 3b CKD (HCC)] Onset: 2 Chronic Chronic kidney disease (2 sources) Chronic kidney disease; Translations: [Stage 3 chronic kidney disease, unspecified whether stage 3a or 3b CKD (HCC)] Onset: 2 Chronic obstructive pulmonary disease and bronchiectasis (1 source) Chronic obstructive pulmonary disease and bronchiectasis Contraceptive and procreative management (1 source) H/O: tubal ligation; Translations: [Tubal Ligation] 09-08-2017 Episodic Comment on above: 1991 Deficiency and other anemia (4 sources) Anemia; Translations: [Anemia, unspecified] Resolved: 3 12-15-2017 Episodic Diabetes mellitus with complications (3 sources) Type 2 diabetes mellitus; Translations: [Type 2 diabetes mellitus with other specified complication] Onset: 5 06-05-2025 Chronic Diabetes mellitus with complications (6 sources) Diabetes mellitus with complications Diabetes mellitus without complication (20 sources) Type 2 diabetes mellitus without complication; Translations: [Type 2 diabetes mellitus without complications] Onset: 3 09-08-2017 Chronic Comment on above: chronic stable-sydnie nue present regimen Diabetes mellitus without complication (17 sources) Diabetes mellitus without complication Disorders of lipid metabolism (20 sources) Other and unspecified hyperlipidemia; Translations: [Hyperlipidemia] Onset: 9 09-08-2017 Chronic Esophageal disorders (20 sources) Gastroesophageal reflux disease; Translations: [Gastro-esophageal reflux disease without esophagitis] Onset: 9 09-08-2017 Chronic Comment on above: chronic stable-sydnie nue present regimen Esophageal disorders (5 sources) Esophageal disorders Essential hypertension (20 sources) Benign essential hypertension; Translations: [Essential hypertension] Onset: 9 09-08-2017 Chronic Comment on above: cut in half and chec k bps Genitourinary symptoms and ill-defined conditions (20 sources) Female stress incontinence; Translations: [Stress incontinence (female) (male)] Onset: 4 09-08-2017 Chronic Genitourinary symptoms and ill-defined conditions (2 sources) Blood in urine; Translations: [Hematuria] Resolved: 8 12-15-2017 Episodic Headache; including migraine (1 source) Cyclical vomiting syndrome 01-04-2025 Chronic Malaise and fatigue (4 sources) Fatigue; Translations: [Fatigue] Resolved: 9 12-15-2017 Episodic Menopausal disorders (20 sources) Postmenopausal bleeding; Translations: [Postmenopausal bleeding] Onset: 4 09-08-2017 Chronic Menstrual disorders (20 sources) Menorrhagia; Translations: [Excessive and frequent menstruation with regular cycle] Onset: 4 09-08-2017 Chronic Nausea and vomiting (6 sources) Nausea, vomiting and diarrhea; Translations: [Nausea with vomiting, unspecified] Onset: 5 06-04-2024 Episodic Nutritional deficiencies (9 sources) Iron deficiency; Translations: [Vitamin D deficiency] 09-08-2017 Chronic Other aftercare (3 sources) Patient encounter status; Translations: [Encounter for therapeutic drug level monitoring] 09-23-2024 Episodic Other bone disease and musculoskeletal deformities (20 sources) Osteopenia; Translations: [Other specified disorders of bone density and structure, unspecified site] Onset: 4 09-08-2017 Episodic Other connective tissue disease (2 sources) Pain in limb; Translations: [Pain in limb] Resolved: 0 12-15-2017 Episodic Comment on above: think radiculopathy- refer pt Other connective tissue disease (1 source) Pain of toe of right foot; Translations: [Pain in right toe(s)] 09-11-2021 Episodic Other connective tissue disease (2 sources) Spasm; Translations: [Other muscle spasm] 12-30-2024 Episodic Other disorders of stomach and duodenum (1 source) Cyclical vomiting syndrome; Translations: [Cyclical vomiting syndrome unrelated to migraine] 01-03-2025 Episodic Other disorders of stomach and duodenum (1 source) Indigestion 03-21-2025 Episodic Other gastrointestinal disorders (6 sources) Esophageal dysphagia; Translations: [Other dysphagia] Episodic Other gastrointestinal disorders (3 sources) Dysphagia; Translations: [Dysphagia, pharyngoesophageal phase] Episodic Other gastrointestinal disorders (1 source) Heartburn; Translations: [Heartburn] 08-07-2024 Episodic Other gastrointestinal disorders (1 source) Heartburn; Translations: [Heartburn] Onset: 4 Episodic Other gastrointestinal disorders (1 source) Other dysphagia; Translations: [Esophageal dysphagia] Onset: 5 Episodic Other lower respiratory disease (1 source) Solitary nodule of lung; Translations: [Solitary pulmonary nodule] 12-31-2024 Episodic Other non-traumatic joint disorders (2 sources) Knee pain; Translations: [Knee pain] Resolved: 8 12-15-2017 Episodic Other nutritional; endocrine; and metabolic disorders (2 sources) Body mass index 30+ - obesity; Translations: [BMI 31.0-31.9,adult] Resolved: 8 09-08-2017 Chronic Other nutritional; endocrine; and metabolic disorders (20 sources) Obese class I; Translations: [Obesity, unspecified] Onset: 2 05-19-2022 Chronic Other nutritional; endocrine; and metabolic disorders (2 sources) Obesity; Translations: [Class 1 obesity with serious comorbidity and body mass index (BMI) of 31.0 to 31.9 in adult, unspecified obesity type] 06-05-2025 Chronic Other nutritional; endocrine; and metabolic disorders (1 source) Body mass index (BMI) 30.0-30.9, adult; Translations: [Class 1 obesity with serious comorbidity and body mass index (BMI) of 30.0 to 30.9 in adult, unspecified obesity type] Onset: 5 Chronic Other nutritional; endocrine; and metabolic disorders (1 source) Body mass index (BMI) 31.0-31.9, adult; Translations: [Class 1 obesity with serious comorbidity and body mass index (BMI) of 31.0 to 31.9 in adult, unspecified obesity type] Onset: 5 Chronic Other skin disorders (2 sources) Callosity; Translations: [Corns and callosities] 03-24-2025 Episodic Other skin disorders (1 source) Corns and callosities; Translations: [Callus] Onset: 5 Episodic Other upper respiratory infections (4 sources) Acute sinusitis; Translations: [Acute sinusitis] Onset: 2 Resolved: 2 03-26-2012 Episodic Otitis media and related conditions (3 sources) Otitis media; Translations: [Dysfunction of eustachian tube] Onset: 2 Resolved: 1 12-15-2017 Episodic Otitis media and related conditions (5 sources) Otitis media and related conditions Residual codes; unclassified (2 sources) Postmenopausal state; Translations: [Asymptomatic menopausal state] 03-22-2024 Episodic Residual codes; unclassified (2 sources) Early satiety; Translations: [Early satiety] 03-21-2025 Episodic Residual codes; unclassified (1 source) Early satiety; Translations: [Early satiety] Onset: 5 Episodic Spondylosis; intervertebral disc disorders; other back problems (2 sources) Backache; Translations: [Dorsalgia, unspecified] 12-30-2024 Episodic Unclassified (20 sources) Unclassified (3 sources) Abnormal blood chemistry (790.6) Unclassified (6 sources) screening 09-08-2017 Unclassified (1 source) Hair loss Unclassified (1 source) SCREENING FOR BREAST CANCER (V76.10) Unclassified (1 source) Abnormal blood chemistry Unclassified (1 source) Eustachian tube dysfunction (381.81) Unclassified (5 sources) Non-smoker; Translations: [Non-smoker] 09-08-2017 Unclassified (3 sources) Abnormal PFT Unclassified (2 sources) menopausal without estrogen 09-08-2017 Unclassified (6 sources) screen Resolved: 0 12-15-2017 Unclassified (2 sources) BMI 31.0-31.9,adult Unclassified (2 sources) Lung infiltrate (793.19) Unclassified (2 sources) Elevated Blood Pressure(796.2) Unclassified (2 sources) carotydynia 09-08-2017 Unclassified (1 source) Patient encounter status 03-24-2025 Unclassified (1 source) Obesity, Class I, BMI 30-34.9; Translations: [Obesity, Class I, BMI 30-34.9] Onset: 2 Unclassified (1 source) Class 1 obesity with serious comorbidity and body mass index (BMI) of 30.0 to 30.9 in adult, unspecified obesity type; Translations: [Class 1 obesity with serious comorbidity and body mass index (BMI) of 30.0 to 30.9 in adult, unspecified obesity type] Onset: 5 Unclassified (1 source) Class 1 obesity with serious comorbidity and body mass index (BMI) of 31.0 to 31.9 in adult, unspecified obesity type; Translations: [Class 1 obesity with serious comorbidity and body mass index (BMI) of 31.0 to 31.9 in adult, unspecified obesity type] Onset: 5 Past or Other Problems Problem Classification Problem Date Documented Da te Episodic/Chronic Abdominal pain (20 sources) Suprapubic pain; Translations: [Pelvic and perineal pain] Onset: 11-17-2023 Resolved: 03-22-2024 09-08-2017 Episodic Comment on above: if urine negative do pelvic us Acute bronchitis (1 source) Acute bronchitis; Translations: [Bronchitis, acute] Resolved: 10-25-2010 07-28-2015 Episodic Diabetes mellitus without complication (20 sources) Abnormal glucose tolerance test; Translations: [Other abnormal glucose] Onset: 11-17-2023 Resolved: 03-22-2024 09-08-2017 Episodic Gastritis and duodenitis (20 sources) Gastritis; Translations: [Gastritis, unspecified, without bleeding] Onset: 08-07-2024 06-05-2024 Episodic Immunizations and screening for infectious disease (9 sources) Need for prophylactic vaccination and inoculation against influenza; Translations: [Viral screening status] Onset: 09-23-2024 Episodic Mycoses (20 sources) Onychomycosis; Translations: [Tinea unguium] Onset: 11-17-2023 09-08-2017 Episodic Nutritional deficiencies (20 sources) Iron deficiency; Translations: [Iron deficiency] Onset: 11-17-2023 11-17-2023 Episodic Other aftercare (1 source) Encounter for therapeutic drug level monitoring; Translations: [Medication monitoring encounter] Onset: 09-30-2024 Episodic Other bone disease and musculoskeletal deformities (2 sources) Other specified disorders of bone density and structure, unspecified site; Translations: [Osteopenia, unspecified location] Onset: 11-17-2023 Episodic Other circulatory disease (1 source) Elevated blood-pressure reading without diagnosis of hypertension; Translations: [Elevated blood pressure (not hypertension)] Resolved: 05-04-2009 12-15-2017 Episodic Other connective tissue disease (20 sources) Swelling of limb; Translations: [Other specified soft tissue disorders] Onset: 11-17-2023 Resolved: 03-22-2024 09-08-2017 Episodic Other lower respiratory disease (20 sources) Dyspnea at rest; Translations: [Shortness of breath] Onset: 11-17-2023 Resolved: 03-22-2024 09-08-2017 Episodic Comment on above: awaiting pfts if neg ative send to cardio Other lower respiratory disease (1 source) Other nonspecific abnormal finding of lung field; Translations: [Lung infiltrate] Resolved: 12-31-2013 12-15-2017 Episodic Other skin disorders (1 source) Nonscarring hair loss, unspecified; Translations: [Hair loss] Resolved: 12-15-2017 12-15-2017 Episodic Residual codes; unclassified (20 sources) Non-smoker; Translations: [Other specified health status] Onset: 11-17-2023 Resolved: 03-22-2024 03-22-2024 Episodic Screening and history of mental health and substance abuse codes (2 sources) Encounter for screening examination for other mental health and behavioral disorders; Translations: [Encounter for screening for depression] Onset: 09-23-2024 Episodic Unclassified (16 sources) Blood chemistry abnormal; Translations: [Viral screening status] Onset: 07-03-2012 Resolved: 12-15-2017 01-20-2016 Episodic Comment on above: october Unclassified (20 sources) Sleep disorder; Translations: [Postmenopausal state] Onset: 11-17-2023 09-08-2017 Episodic Comment on above: testosterone normal try exercise- she has noted it better in past with exercise 1985 14 child- 1990 Unclassified (2 sources) Low libido Unclassified (2 sources) Shortness of breath at rest Unclassified (2 sources) Screening for HPV (human papillomavirus) (Renamed from Encounter for screening for human papillomavirus (HPV)); Translations: [Patient encounter status] 09-08-2017 Unclassified (2 sources) Encounter for gynecological examination without abnormal finding; Translations: [Patient encounter status] 09-08-2017 Unclassified (2 sources) Encounter for screening mammogram for breast cancer (Renamed from Encounter for screening mammogram for malignant neoplasm of breast) Unclassified (2 sources) BMI 35.0-35.9,adult Unclassified (3 sources) [facility] 09-08-2017 Unclassified (1 source) Postmenopausal (Renamed from Postmenopausal status) Unclassified (1 source) Encounter for hepatitis C virus screening test for high risk patient Unclassified (2 sources) renal insuff with proteinuria and blood- recheck and put on arb- if persists will need further workup 09-08-2017 Unclassified (1 source) Pregnancies (); Translations: [Pregnancies ()] 09-08-2017 Comment on above: 4 Unclassified (1 source) Well Woman Exam (V72.31) (Pap,Mammo,Routine Female) (Renamed from Well Woman V72.31 (p,m)) Unclassified (1 source) Deliveries (Parity); Translations: [Deliveries (Parity)] 09-08-2017 Comment on above: 3 Unclassified (1 source) Stress incontinence, female (625.6) Results Test Name Value Interpretation Reference Range Facility [facility] 07-25-2025 FREEMAN Telephone (AGGENS4) ----- SUSAN BOBBY ([id number]) 1960 F Date Time Provider Department 07/25/25 ERNESTINA GRIMALDO4 During your visit today, we recorded the following information about you: Carina Marcos 07/29/2025 8:38 AM Addendum 07/29/25-return pt about sx date. Lvm for her to call back [facility] for pt to c/b and get sx date Allergies As of Date: 07/25/2025 (No Known Allergies) Date Reviewed: 07/24/2025 Reviewed by: Ernestina Grimaldo MD - Fully Assessed Reason for Visit: Orders [681] Cmt: Sx date Prescriptions as of 07/29/2025 - pantoprazole DR (PROTONIX) 40 mg tablet Take 1 tablet by mouth once daily. - benazepril (LOTENSIN) 20 mg tablet Take 1 tablet by mouth once daily. - hydroCHLOROthiazide 25 mg tablet Take 1 tablet by mouth once daily. - metFORMIN (GLUCOPHAGE) 500 mg tablet Take 1 tablet by mouth daily with breakfast. - rosuvastatin (CRESTOR) 5 mg tablet Take 1 tablet by mouth once daily. - calcium phosphate dibas/vit D3 (VITAMIN D, WITH CALCIUM, ORAL) Take by mouth. - multivitamin (DAILY VITAMIN ORAL) Take by mouth once daily. - blood sugar diagnostic (BLOOD GLUCOSE TEST) test strip Test blood sugar(s) 1 times daily. Dx: Type 2 DM - Controlled E11.9 Insulin: No Problem List As Of Date 07/25/2025 Noted Resolved Hypertension, essential [I10] 12/20/2018 GERD without esophagitis [K21.9] 12/20/2018 Hyperlipidemia, mixed [E78.2] 12/20/2018 CKD (chronic kidney disease) stage 3, GFR 30-59*05/13/2022 Obesity, Class I, BMI 30-34.9 [E66.811] 05/19/2022 Controlled type 2 diabetes mellitus without com*05/10/2023 Abnormal glucose tolerance test (GTT) [R73.09] 11/17/2023 03/22/2024 Diagnosed: 11/17/2023 History of tubal ligation [Z98.51] 11/17/2023 Diagnosed: 11/17/2023 Iron deficiency [E61.1] 11/17/2023 Diagnosed: 11/17/2023 Menorrhagia [N92.0] 11/17/2023 Diagnosed: 11/17/2023 Non-smoker [Z78.9] 11/17/2023 03/22/2024 Diagnosed: 11/17/2023 Onychomycosis [B35.1] 11/17/2023 Diagnosed: 11/17/2023 Osteopenia [M85.80] 11/17/2023 Diagnosed: 11/17/2023 Postmenopausal bleeding [N95.0] 11/17/2023 Diagnosed: 11/17/2023 Shortness of breath at rest [R06.02] 11/17/2023 03/22/2024 Diagnosed: 11/17/2023 Sleep disorder [G47.9] 11/17/2023 Diagnosed: 11/17/2023 Stress incontinence in female [N39.3] 11/17/2023 Diagnosed: 11/17/2023 Suprapubic pain [R10.24] 11/17/2023 03/22/2024 Diagnosed: 11/17/2023 Swelling of extremity [M79.89] 11/17/2023 03/22/2024 Diagnosed: 11/17/2023 Gastritis without bleeding [K29.70] 08/07/2024 Hiatal hernia [K44.9] 08/07/2024 Pre-op examination [Z01.818] 07/11/2025 Encounter Status:Closed by CARINA MARCOS on 07/25/25 [facility] CNOVon 07-24-2025 CNOV Office Visit (AGGENS 4) ----- SUSAN BOBBY ([id number]) 1960 F Date Time Provider Department 07/24/25 11:00 AM ERNESTINA GRIMALDO [facility]4 During your visit today, we recorded the following information about you: Pulse Blood pressure Weight Height 55/minute 152/80 76.7 kg 1.549 m Ernestina Grimalod MD 07/24/2025 11:41 AM Signed SURGICAL SERVICES HISTORY AND PHYSICAL EXAMINATION SERVICE DATE: 07/24/2025 SERVICE TIME: 11:04 AM PRIMARY CARE PHYSICIAN: Jose Bullard MD SUBJECTIVE CHIEF COMPLAINT: Gi issues HISTORY OF PRESENT ILLNESS: Ms. Bobby is a 65 year old female with a PMH of diabetes (A1c <6; metformin), HTN, HLD, GERD, CKD, hiatal hernia, osteopenia and obesity (BMI 31.63) who presents for surgical consultation and follow up after testing. Today she reports improvement in dysphagia since undergoing esophageal dilation. Workup: - EGD (07/11/25; Re): mild Schatzki ring at LES; dialted to 20 mm; HG IV GEJ with 4 cm small hiatal hernia - Pathology: Stomach, antrum, biopsy: Gastric mucosa with chronic inactive gastritis, (see comment). Esophagus, distal, biopsy: Esophageal squamous mucosa with no histopathologic abnormality. Esophagus, proximal, biopsy: Esophageal squamous mucosa with no histopathologic abnormality - Manometry (06/2025): 70% intact swallows with 30% intact; DCI WNL; IRP WNL. No [place] Classification abnormalities. - UGI (04/09/25): GERD, small hiatal hernia Contour irregularity at the distal esophagus at the gastroesophageal junction region. Cannot exclude underlying stricturing/scarring or other underlying abnormality or lesion. Recommend correlation with EGD - GES (03/21/25): WNL - CT abd/pelvis (12/29/24): Liver, pancreas, spleen, adrenal glands, and kidneys are unremarkable. The gallbladder is surgically absent. There is a small hiatal hernia. There is no bowel obstruction. There are no inflammatory changes of the bowel loops. The appendix is normal. There are no free intraperitoneal collections. Urinary bladder is unremarkable. Uterus and adnexa are absent. There is mild calcified atherosclerosis. Portal venous system is patent and there are no venous filling defects. There are no pathologically enlarged nodes. - EGD (08/07/24): medium sized hiatal hernia - HG 4 GEJ on my review of images - Pathology: Stomach, biopsy: Fundic mucosa with mild chronic inactive gastritis. Esophagogastric junction, biopsy: Mildly reactive squamous mucosa. No evidence of intestinal metaplasia or dysplasia Per my last clinic note: she reports having had GERD symptoms since her 20s and has been on PPIs for many years and most recently on 40 mg Protonix once daily. Due to her long history of PPI use she was recommended to undergo further workup. She has had multiple ER visits due to abdominal pain which was thought to be secondary to GERD. She was evaluated by GI and found to have a hiatal hernia. She endorses intermittent dysphagia that causes emesis. She also endorses chronic nocturnal cough. Social: denies x 3 PSHx: CCx, CASSANDRA PAST MEDICAL HISTORY: PAST MEDICAL HISTORY Diagnosis Date Acute gastritis DM (diabetes mellitus) (HCC) GERD (gastroesophageal reflux disease) Hiatal hernia 08/07/2024 med-large HLD (hyperlipidemia) HTN (hypertension) PAST SURGICAL HISTORY: PAST SURGICAL HISTORY Procedure Laterality Date CHOLECYSTECTOMY N/A done when she was 23 COLONOSCOPY 01/13/2023 EGD W/O [facility] SPEC VARICIES INJ 05/19/2022 EGD WITH BIOPSY(S) 08/07/2024 med-large hiatal hernia; Dr. Reid TOTAL ABDOMINAL HYSTERECT W/WO RMVL TUBE OVARY N/A 10/2017 for abnormal bleeding. no cancer VAGINAL HYSTERECTOMY FAMILY HISTORY: FAMILY HISTORY Problem Relation Age of Onset Hypertension Mother Dementia Father Colon Cancer No Family History SOCIAL HISTORY: SOCIAL HISTORY[1] MEDICATIONS: Current Outpatient Medications Medication Sig pantoprazole DR (PROTONIX) 40 mg tablet Take 1 tablet by mouth once daily. benazepril (LOTENSIN) 20 mg tablet Take 1 tablet by mouth once daily. hydroCHLOROthiazide 25 mg tablet Take 1 tablet by mouth once daily. metFORMIN (GLUCOPHAGE) 500 mg tablet Take 1 tablet by mouth daily with breakfast. rosuvastatin (CRESTOR) 5 mg tablet Take 1 tablet by mouth once daily. calcium phosphate dibas/vit D3 (VITAMIN D, WITH CALCIUM, ORAL) Take by mouth. multivitamin (DAILY VITAMIN ORAL) Take by mouth once daily. blood sugar diagnostic (BLOOD GLUCOSE TEST) test strip Test blood sugar(s) 1 times daily. Dx: Type 2 DM - Controlled E11.9 Insulin: No No current facility-administered medications for this visit. ALLERGIES: ALLERGIES No Known Allergies COMPLETE REVIEW OF SYSTEMS: Review of Systems Constitutional: Negative for chills, diaphoresis, fever and malaise/fatigue. HENT: Negative for congestion, hearing loss, nosebleeds, sinus pain, so (more content not included)... Normal [facility] ANES POSTPROC EVALon 025 ANES POSTPROC EVAL HNO ID: [id number] Author: NIA KEENE MD Service: Anesthesiology Author Type: Physician Type: Anesthesia Postprocedure Evaluation Filed: 07/11/2025 10:06 Note Text: POST ANESTHESIA EVALUATION NOTE : 1960 Procedure Summary Date: 07/11/25 Room / Location: [facility] Anesthesia Start: 913 Anesthesia Stop: 1001 Procedure: EGD DIAGNOSTIC Diagnosis: Gastroesophageal reflux disease, unspecified whether esophagitis present Hiatal hernia Scheduled Providers: Ernestina Grimaldo MD Responsible Provider: Nia Keene MD Anesthesia Type: MAC ASA Status: 2 Anesthesia Type: MAC Last Vitals Vitals Value Taken Time BP 123/71 07/11/25 10:01 Temp 36.2 ?C (97.2 ?F) 07/11/25 10:01 Pulse 73 07/11/25 10:05 Resp 17 07/11/25 10:05 SpO2 94 % 07/11/25 10:05 Vitals shown include unfiled device data. Post Anesthesia Patient Status Patient Evaluation: PACU. PACU/ICU Patient Condition: stable. Anticipated Disposition: phase 2 then home. Neurological Status: aware and responsive. Pulmonary Status: breathing comfortably on room air Airway Control: returned to baseline unsupported. Cardiovascular Status: stable. Pain Management: clinically adequate Postoperative Hydration: acceptable. Intraoperative Events: no significant anesthesia events Post Operative Nausea/Vomiting Status: no significant post operative nausea or vomiting Recommendation: continue current plan of care. Anesthesia Observations No Documentation SIGNATURE: Nia Keene MD PATIENT NAME: Susan Bobby DATE: July 11, 2025 TIME: 10:05 AM CSN: [id number] Normal [facility] ANES PRE-OPon 07-11-2025 ANES PRE-OP HNO ID: [id number] Author: NIA KEENE MD Service: Anesthesiology Author Type: Physician Type: Anesthesia Preprocedure Evaluation Filed: 07/11/2025 08:36 Note Text: ANESTHESIOLOGY DAY OF SURGERY NOTE : 1960 Procedure Information Date/Time: 07/11/25929 Scheduled providers: Ernestina Grimaldo MD Procedure: EGD DIAGNOSTIC Location: [facility] Estimated body mass index is 31.63 kg/m? as calculated from the following: Height as of 06/05/25: 154.9 cm (5' 1). Weight as of 06/05/25: 75.9 kg (167 lb 6.4 oz). Most recent hematocrit and potassium results: Hematocrit 38.0 04/11/2025 Potassium 4.1 04/11/2025 Relevant Problems CARDIO (+) Hypertension, essential ENDO (+) Controlled type 2 diabetes mellitus without complication (HCC) GI (+) GERD without esophagitis (+) Hiatal hernia -RENAL (+) CKD (chronic kidney disease) stage 3, GFR 30-59 ml/min ([facility]) I - PHYSICAL EVALUATION AIRWAY Patient intubated: No. Tracheostomy tube not present Mallampati: II. TM distance: >3 FB. Neck ROM: full ROM without neurological symptoms. Mouth openin FB. Short neck: no. Thick neck: no DENTAL Dental findings: teeth intact. II - ANESTHESIA PLAN ASA Score: 2 Anesthetic Plan: MAC The patient is not a current smoker. NPO Status: adequate Monitoring Plan Monitoring plan: standard ASA. Post Procedure Analgesic Plan Postoperative analgesic plan: multimodal analgesia. Informed Consent Anesthetic risks, benefits, alternatives, personnel and consent discussed: yes. Patient / Responsible Constitution Party agrees to proceed: yes Patient / Surrogate agrees to blood products: blood products not planned Potential Anesthesia issues that may suggest increased risk of complications or contraindication to planned procedure: none. Vitals Value Taken Time BP 138/83 07/11/25 07:54 Pulse 53 07/11/25 07:54 Resp 15 07/11/25 07:54 Temp 36.6 ?C (97.9 ?F) 07/11/25 07:54 SpO2 100 % 07/11/25 07:54 Facility-Administered Medications as of 07/11/2025 Medication Dose Route Frequency lactated ringers iv infusion 30 mL/hr INTRAVENOUS CONTINUOUS lidocaine 2 % topical gel (XYLOCAINE) X (OR/PROCEDURE) PRN Outpatient Medications as of 07/11/2025 Medication Sig calcium phosphate dibas/vit D3 (VITAMIN D, WITH CALCIUM, ORAL) Take by mouth. pantoprazole DR (PROTONIX) 40 mg tablet Take 1 tablet by mouth once daily. benazepril (LOTENSIN) 20 mg tablet Take 1 tablet by mouth once daily. hydroCHLOROthiazide 25 mg tablet Take 1 tablet by mouth once daily. metFORMIN (GLUCOPHAGE) 500 mg tablet Take 1 tablet by mouth daily with breakfast. rosuvastatin (CRESTOR) 5 mg tablet Take 1 tablet by mouth once daily. multivitamin (DAILY VITAMIN ORAL) Take by mouth once daily. blood sugar diagnostic (BLOOD GLUCOSE TEST) test strip Test blood sugar(s) 1 times daily. Dx: Type 2 DM - Controlled E11.9 Insulin: No I have interviewed and examined the patient. I have reviewed the medical record and/or the pre-anesthesia evaluation, pertinent labs, and test results. This contains updated information obtained within 48 hours of Surgery/Procedure. SIGNATURE: Nia Keene MD PATIENT NAME: Susan Bobby DATE: July 11, 2025 TIME: 8:35 AM CSN: [id number] Normal [facility] HISTORY PHYSICALon HISTORY PHYSICAL HNO ID: [id number] Author: GRETA GOMEZ APRN.[employer] Service: Anesthesiology Author Type: Nurse Practitioner Type: H&P Filed: 07/11/2025 08:10 Note Text: HISTORY AND PHYSICAL EXAMINATION SERVICE DATE: 07/11/2025 SERVICE TIME: 7:47 AM PRIMARY CARE PHYSICIAN: Jose Bullard MD REASON FOR VISIT: The reason for this visit is To perform a comprehensive review of the patients past medical history, assess their current health status and obtain any additional testing required based on anesthesia guidelines. To assess and identify potential anesthesia problems, particularly those that may suggest potential complications or contraindications to the planned procedure. The patient has the following: ACTIVE PROBLEM LIST Hypertension, Essential Gerd Without Esophagitis Hyperlipidemia, Mixed Ckd (Chronic Kidney Disease) Stage 3, Gfr 30-59 Ml/Min ([facility]) Obesity, Class I, Bmi 30-34.9 Controlled Type 2 Diabetes Mellitus Without Complication (Hcc) History of Tubal Ligation Iron Deficiency Menorrhagia Onychomycosis Osteopenia Postmenopausal Bleeding Sleep Disorder Stress Incontinence in Female Gastritis Without Bleeding Hiatal Hernia Pre-Op Examination Subjective CHIEF COMPLAINT: Preoperative Examination HPI: Patient present to [facility] for the above procedure. Patient here for routine Upper GI Endoscopy screening. Patient reports a hiatal hernia that needs further investigation. Patient also reports a possible paraesophageal hernia. She reports having some dysphagia and having had episodes of food getting stuck in her throat. Patient denies any N/V/D or constipation. Denies any abdominal pain. Denies any melena, hematochezia, or hematemesis. Patient denies any other problems at this time. Denies any family history of colon cancer or other gastric cancer. Patient is agreeable to planned procedure. METS: Climb a flight of stairs or walk up a hill (5.50 METs) Patient denies any CP/SOB with above activity. PAST MEDICAL HISTORY Diagnosis Date Acute gastritis DM (diabetes mellitus) (HCC) GERD (gastroesophageal reflux disease) Hiatal hernia 08/07/2024 med-large HLD (hyperlipidemia) HTN (hypertension) PAST SURGICAL HISTORY Procedure Laterality Date CHOLECYSTECTOMY N/A done when she was 23 COLONOSCOPY 01/13/2023 EGD W/O [facility] SPEC VARICIES INJ 05/19/2022 EGD WITH BIOPSY(S) 08/07/2024 med-large hiatal hernia; Dr. Reid TOTAL ABDOMINAL HYSTERECT W/WO RMVL TUBE OVARY N/A 10/2017 for abnormal bleeding. no cancer VAGINAL HYSTERECTOMY FAMILY HISTORY Problem Relation Age of Onset Hypertension Mother Dementia Father Colon Cancer No Family History SOCIAL HISTORY: SOCIAL HISTORY[1] Prior to Admission medications as of 07/11/25 0803 Medication Sig Last Dose Taking calcium phosphate dibas/vit D3 (VITAMIN D, WITH CALCIUM, ORAL) Take by mouth. 07/10/[address] (PROTONIX) 40 mg tablet Take 1 tablet by mouth once daily. 07/09/2025 benazepril (LOTENSIN) 20 mg tablet Take 1 tablet by mouth once daily. 07/09/2025 hydroCHLOROthiazide 25 mg tablet Take 1 tablet by mouth once daily. 07/09/2025 metFORMIN (GLUCOPHAGE) 500 mg tablet Take 1 tablet by mouth daily with breakfast. 07/09/2025 rosuvastatin (CRESTOR) 5 mg tablet Take 1 tablet by mouth once daily. 07/09/2025 multivitamin (DAILY VITAMIN ORAL) Take by mouth once daily. 07/09/2025 blood sugar diagnostic (BLOOD GLUCOSE TEST) test strip Test blood sugar(s) 1 times daily. Dx: Type 2 DM - Controlled E11.9 Insulin: No No medication comments found. ALLERGIES No Known Allergies REVIEW OF SYSTEMS: PAIN ASSESSMENT: Pain Pain Level: 0 Pain Assessment: Assessment Tool: Verbal (Numeric Rating or Visual Analog Scale) General: Denies fever, chills, and unexpected weight change. Neuro: Denies dizziness and headaches. Respiratory: Denies SOB. Cardiovascular: Denies CP and palpitations. +HTN +HLD +CKD GI: See HPI. : Denies dysuria. Endocrine: No history of thyroid conditions. +DM Hematology: Denies history of bleeding or clotting disorder. No known autoimmune disorders. Psych: Denies anxiety/depression. Musculoskeletal: Denies joint pain and swelling. Skin: Denies open sores and rashes. Objective PHYSICAL EXAM: VITALS: BP 138/83 Pulse 53 Temp 97.9 Resp 15 SpO2 100% O2 Therapy: Room Air General: NAD. Cooperative. Skin: Skin is warm, no rashes, and no open sores. HEENT: Normocephalic. Cardiovascular: Normal S1 AND S2. No murmur. Lungs: CTA Bilaterally. No respiratory distress. Abdomen: Soft. Pos BS x4quad Extremities: No edema. Neurological: Alert and oriented to person, place, and time. Pulses: radial pulses +2 Diagnostic tests reviewed for today's visit: Lab Value Units Date High Low HB 12.5 g/dL 04/11/2025 15.5 11.5 HCT 38.0 % 04/11/2025 46.0 36.0 WBC 6.65 k/uL 04/11/2025 11.00 3.70 PLT 243 k/uL 04/11/2025 400 150 NA 138 mmol/L 04/11/2025 (more content not included)... Normal [facility] NURSING PROGon 07-11-2025 NURSING PROG HNO ID: [id number] Author: NICKY ARRIAGA RN Service: Nursing Author Type: Registered Nurse Type: Nursing Progress Note Filed: 07/11/2025 08:44 Note Text: This patient was taken into the procedure room. Informed consent was verified and all the allergies reviewed prior to the procedure. The manometry catheter was inserted to the left nares without difficulty. This patient denies any injuries or surgeries .This patient denied any use of blood thinner and/ or muscle relaxants. This patient was informed that nasal congestion and minimal nasal bleeding are possible side effects. This patient tolerated this procedure well. Normal [facility] Pathology biopsy report Pj (Tiss)on 07-11-[address] [facility] Comment on above: Order Comment: Speci men Type: TISSUE SPECIMEN Ordering Facility: [facility] Address: [address] [place] [address] Result Comment: Ruddy malik Developed Test (LDT) Disclaimer: Performance characteristics of immunohistochemical, immunofluorescent, and chromogenic in-situ hybridization tests have been determined by the performing laboratory within the [facility] Department of Pathology and Laboratory Medicine ([facility], [facility], [facility], [facility], [facility], [facility], or [facility]) in a manner consistent with CLIA requirements. One or more of these tests may not have been cleared or approved by the FDA. The [facility] Department of Pathology and Laboratory Medicine is regulated under CLIA as qualified to perform high-complexity testing. These tests are used for clinical purposes. These should not be regarded as investigational or for research. Positive and negative controls stain appropriately. Performed By: #### 6 [id number] #### [facility] CLIA [id number] [address] CASE REPORT Normal [facility] Comment on above: Order Comment: Speci men Type: TISSUE SPECIMEN Ordering Facility: [facility] Address: [address] [place] [address] Result Comment: Surg [facility] Pathology Report Case: [id number] Authorizing Provider: Ernestina Grimaldo MD Collected: 07/11/2025 09:40 AM Ordering Location: [facility] Received: 07/11/2025 12:54 PM Pathologist: Juan Pablo Edgar MD Specimens: A) - Stomach, Antrum, Biopsy B) - Esophagus, Distal, Biopsy C) - Esophagus, Proximal, Biopsy Performed By: #### 6 6121-5 #### [facility] CLIA [id number] [address] DIAGNOSIS COMMENT No Helicobacter pylo ri organisms are identified by immunohistochemistry. Normal [facility] Comment on above: Order Comment: Speci men Type: TISSUE SPECIMEN [facility]ing Facility[facility] Address: [address] [place] [address] Performed By: #### 6 6121-5 #### [facility] CLIA [id number] [address] [place] [address] FINAL DIAGNOSIS Normal [facility] Comment on above: Order Comment: Speci men Type: TISSUE SPECIMEN [facility]ing Facility: [facility] Address: [address] [place] [address] Result Comment: A. S gilmaach, antrum, biopsy: - Gastric mucosa with chronic inactive gastritis, (see comment). B. Esophagus, distal, biopsy: - Esophageal squamous mucosa with no histopathologic abnormality. C. Esophagus, proximal, biopsy: - Esophageal squamous mucosa with no histopathologic abnormality. at 1618 EDT Performed By: #### 6 6121-5 #### [facility] CLIA [id number] [address] [place] [address] FINAL PERFORMING LAB Normal [facility] Comment on above: Order Comment: Speci men Type: TISSUE SPECIMEN [facility]ing Facility: [facility] Address: [address] [place] [address] Result Comment: Diag nostic interpretation performed at: [facility], [address] [address] CLIA# [id number] Lumber Carrier: Kendrick Robles MD Performed By: #### 6 6121-5 #### [facility] CLIA [id number] [address] [place] [address] GROSS DESCRIPTION Normal [facility] Comment on above: Order Comment: Speci men Type: TISSUE SPECIMEN [facility]ing Facility: [facility] Address: [address] [place] [address] Result Comment: A. S gilmaach, Antrum, Biopsy Received in formalin labeled stomach antrum biopsy are multiple irregular chan soft tissue fragments aggregating to 0.8 x 0.4 x 0.2 cm. The specimen is submitted entirely in A1. B. Esophagus, Distal, Biopsy Received in formalin labeled distal esophagus biopsy are multiple irregular chan soft tissue fragments aggregating to 1 x 1 x 0.2 cm. The specimen is submitted entirely in B1. C. Esophagus, Proximal, Biopsy Received in formalin labeled esophagus proximal biopsy are multiple irregular chan soft tissue fragments aggregating to 1.2 x 0.4 x 0.1 cm. The specimen is submitted entirely in C1. Gross examination performed at 1 [facility] [place] [address] [facility] July 11, 2025 1:35 PM Performed By: #### 6 6121-5 #### [facility] CLIA [id number] [address] [place] [address] [facility] Upper GI endoscopy 025 Upper GI endoscopy [facility] Gastrointestinal Endoscopy Patient Name: Susan Bobby Procedure Date: 07/11/2025 9:09 AM Date of : 1960 Admit Type: Outpatient Room: [place] [address] Gender: Female Note Status: Finalized Attending MD: Ernestina Grimaldo MD, [id number] Procedure: Upper GI endoscopy Indications: Heartburn Providers: Ernestina Grimaldo MD Patient Profile: Refer to note in patient chart for documentation of history and physical. Patient has symptoms of chronic dysphagia and chronic heartburn. Referring Physician: Ernestina Grimaldo MD (Referring MD) Medicines: Monitored Anesthesia Care Complications: No immediate complications. Procedure: Pre-Anesthesia Assessment: - Prior to the procedure, a History and Physical was performed, and patient medications and allergies were reviewed. The patient's tolerance of previous anesthesia was also reviewed. The risks and benefits of the procedure and the sedation options and risks were discussed with the patient. All questions were answered, and informed consent was obtained. Prior Anticoagulants: The patient has taken no anticoagulant or antiplatelet agents. ASA Grade Assessment: II - A patient with mild systemic disease. After reviewing the risks and benefits, the patient was deemed in satisfactory condition to undergo the procedure. After obtaining informed consent, the endoscope was passed under direct vision. Throughout the procedure, the patient's blood pressure, pulse, and oxygen saturations were monitored continuously. The Endoscope was introduced through the mouth, and advanced to the third part of duodenum. I was present and participated during the entire procedure, including non-alcaraz portions, and during the administration and monitoring of Moderate Sedation. The upper GI endoscopy was accomplished without difficulty. The patient tolerated the procedure well. Moderate Sedation: Exam was performed under monitored anesthesia care (MAC) Findings: A mild Schatzki ring was found at the lower esophageal sphincter. A TTS dilator was passed through the scope. Dilation with an 18-19-20 mm x 5.5 cm CRE balloon (to a maximum balloon size of 20 mm) dilator was performed. The dilation site was examined following endoscope reinsertion and showed mild mucosal disruption. Biopsies were obtained from the proximal and distal esophagus with cold forceps for histology of suspected eosinophilic esophagitis. The gastroesophageal flap valve was visualized endoscopically and classified as Hill Grade IV (no fold, wide open lumen, hiatal hernia present). A 4 cm hiatal hernia was present from 31 t o35 cm from the incisors. The entire examined stomach was normal. Biopsies were taken with a cold forceps for Helicobacter pylori testing. The examined duodenum was normal. Estimated Blood Loss: Estimated blood loss: none. Impression: - Mild Schatzki ring. Dilated with an 18-19-20 mm x 5.5 cm CRE balloon (to a maximum balloon size of 20 mm). - Gastroesophageal flap valve classified as Hill Grade IV (no fold, wide open lumen, hiatal hernia present). - 4 cm hiatal hernia. - Normal stomach. Biopsied. - Normal examined duodenum. - Biopsies were taken with a cold forceps for evaluation of eosinophilic esophagitis. Recommendation: - Await pathology results. - Return to my office as previously scheduled. - Discharge patient to home (ambulatory). - Resume previous diet. - Continue present medications. - The patient is not currently taking anticoagulant or antiplatelet agents. Procedure Code(s): --- Professional --- 67682, 51,59, Esophagogastroduodenoscop y, flexible, transoral; with transendoscopic balloon dilation of esophagus (less than 30 mm diameter) --- Technical --- 31090, 59, Esophagogastroduodenoscop y, flexible, transoral; with transendoscopic balloon dilation of esophagus (less than 30 mm diameter) Diagnosis Code(s): --- Professional --- K22.2, Esophageal obstruction K44.9, Diaphragmatic hernia without obstruction or gangrene R12, Heartburn --- Technical --- K22.2, Esophageal obstruction K44.9, Diaphragmatic hernia without obstruction or gangrene R12, Heartburn CPT copyright 202 [employer]. All rights reserved. The codes documented in this report are preliminary and upon steward/stewardess third review may be revised to meet current compliance requirements. Attending Participation: I personally performed the entire procedure. Scope In: 9:41:51 AM Scope Out: 9:54:50 AM MD Ernestina Yanez MD 07/11/2025 10:09:39 AM This report has been signed electronically by Ernestina Grimaldo MD Number of Addenda: 0 Note Initiated On: 07/11/2025 9:09 AM Normal [facility] CNOVon 06-05-2025 CNOV Office Visit (AGGENS 4) ----- CHANTELLSUSAN Vines ([id number]) 1960 F Date Time Provider Department 06/05/25 2:30 PM ERNESTINA GRIMALDOENS4 During your visit today, we recorded the following information about you: Pulse Blood pressure Weight Height 61/minute 110/60 75.9 kg 1.549 m Ernestina Grimaldo MD 06/05/2025 3:15 PM Signed Date: June 05, 2025 Time: 2:33 PM Susan D Craig is a 65 year old year old female with obesity (Body mass index is 31.63 kg/m?.), diabetes (A1c <6; metformin), HTN, HLD, GERD, hiatal hernia, osteopenia and obesity (BMI 31.63) who presents to the clinic today for consideration of surgery. Surgical consultation was requested by the patient's referring provider, Kyle Alexandra APRN, [employer]. A copy of this consultation note will be provided to the requesting physician(s) by way of shared medical record or letter via [place] mail. The patient reports having had GERD symptoms since her 20s and has been on PPIs for many years and most recently on 40 mg Protonix once daily. Due to her long history of PPI use she was recommended to undergo further workup. She has had multiple ER visits due to abdominal pain which was thought to be secondary to GERD. She was evaluated by GI and found to have a hiatal hernia. She endorses intermittent dysphagia that causes emesis. She also endorses chronic nocturnal cough. Workup: - UGI (04/09/25): GERD, small hiatal hernia Contour irregularity at the distal esophagus at the gastroesophageal junction region. Cannot exclude underlying stricturing/scarring or other underlying abnormality or lesion. Recommend correlation with EGD - GES (03/21/25): WNL - CT abd/pelvis (12/29/24): Liver, pancreas, spleen, adrenal glands, and kidneys are unremarkable. The gallbladder is surgically absent. There is a small hiatal hernia. There is no bowel obstruction. There are no inflammatory changes of the bowel loops. The appendix is normal. There are no free intraperitoneal collections. Urinary bladder is unremarkable. Uterus and adnexa are absent. There is mild calcified atherosclerosis. Portal venous system is patent and there are no venous filling defects. There are no pathologically enlarged nodes. - EGD (08/07/24): medium sized hiatal hernia - HG 4 GEJ on my review of images - Pathology: Stomach, biopsy: Fundic mucosa with mild chronic inactive gastritis. Esophagogastric junction, biopsy: Mildly reactive squamous mucosa. No evidence of intestinal metaplasia or dysplasia Social: denies x 3 PSHx: CCx, CASSANDRA PAST MEDICAL HISTORY Diagnosis Date Acute gastritis DM (diabetes mellitus) (HCC) GERD (gastroesophageal reflux disease) Hiatal hernia 08/07/2024 med-large HLD (hyperlipidemia) HTN (hypertension) PAST SURGICAL HISTORY Procedure Laterality Date CHOLECYSTECTOMY N/A done when she was 23 COLONOSCOPY 01/13/2023 EGD W/O BRSH SPEC VARICIES INJ 05/19/2022 EGD WITH BIOPSY(S) 08/07/2024 med-large hiatal hernia; Dr. Reid TOTAL ABDOMINAL HYSTERECT W/WO RMVL TUBE OVARY N/A 10/2017 for abnormal bleeding. no cancer VAGINAL HYSTERECTOMY FAMILY HISTORY Problem Relation Age of Onset Hypertension Mother Dementia Father Colon Cancer No Family History SOCIAL HISTORY[1] Current Outpatient Medications Medication Sig pantoprazole DR (PROTONIX) 40 mg tablet Take 1 tablet by mouth once daily. benazepril (LOTENSIN) 20 mg tablet Take 1 tablet by mouth once daily. hydroCHLOROthiazide 25 mg tablet Take 1 tablet by mouth once daily. metFORMIN (GLUCOPHAGE) 500 mg tablet Take 1 tablet by mouth daily with breakfast. rosuvastatin (CRESTOR) 5 mg tablet Take 1 tablet by mouth once daily. calcium phosphate dibas/vit D3 (VITAMIN D, WITH CALCIUM, ORAL) Take by mouth. multivitamin (DAILY VITAMIN ORAL) Take by mouth once daily. blood sugar diagnostic (BLOOD GLUCOSE TEST) test strip Test blood sugar(s) 1 times daily. Dx: Type 2 DM - Controlled E11.9 Insulin: No No current facility-administered medications for this visit. ALLERGIES No Known Allergies Review of Systems Constitutional: Negative for chills, diaphoresis, fever and malaise/fatigue. HENT: Negative for congestion, hearing loss, nosebleeds, sinus pain, sore throat and tinnitus. Eyes: Negative for blurred vision, double vision, pain and redness. Respiratory: Negative for cough, hemoptysis, sputum production, shortness of breath and wheezing. Cardiovascular: Negative for chest pain, palpitations, orthopnea, leg swelling and PND. Gastrointestinal: Positive for heartburn. Negative for abdominal pain, blood in stool, constipation, diarrhea, nausea and vomiting. Genitourinary: Negative for dysuria, frequency, hematuria and urgency. Musculoskeletal: Negative for back pain, falls, joint pain, myalgias and neck pain. Skin: Negative for itching and rash. Neurological: Negative for d (more content not included)... Normal [facility] ALBUMIN/CREATININE RATIO, UR INEon 04-11-2025 Albumin DL <= 20 mg/L (U) [Mass/Vol] mg/dL Normal [facility] Comment on above: Order Comment: Speci men Type: URINE SPECIMENOrdering Facility: [facility] Address: [address] [place] [address] Performed By: #### U ACR ####[facility] LABCLIA [id number] [place] [address] [place] Albumin/Creatinine (U) [Mass ratio] <14 Normal <30 [facility] Comment on above: Order Comment: Speci men Type: URINE SPECIMENOrdering Facility: [facility] Address: [address] [place] [id number] Result Comment: Adul t Male and Female Nephrotic Criteria: <30 mg/g is considered normal to mildly increased 30-300 mg/g is considered moderately increased >300 mg/g is considered severely increased KDIGO. (2013). KDIGO 2012 Clinical Practice Guideline for the Evaluation and Management of Chronic Kidney Disease. Official Journal of the International Society of Nephrology, 3(1), 1-150. Performed By: #### U ACR ####[facility] LABCLIA [id number] [place] [address] [place] Creatinine (U) [Mass/Vol] 85.3 mg/dL Normal 20.0-300.0 [facility] Comment on above: Order Comment: Speci men Type: URINE SPECIMENOrdering Facility: [facility] Address: [address] [place] [address] Performed By: #### U ACR ####[facility] LABCLIA [id number] [place] [address] [place] CBC W Auto Differential pane l (Bld)on 04-11-2025 Basophils (Bld) [#/Vol] 0.07 10*3/uL Normal <0.11 [facility] Comment on above: Order Comment: Speci men Type: BLOOD SPECIMENOrdering Facility: [facility] Address: [address] [place] [address] Performed By: #### 5 7021-8 ####[facility] BEACHESWMOLIA [id number] [place] [address] [place] Basophils/100 WBC (Bld) 1.1 % Normal [facility] Comment on above: Order Comment: Speci men Type: BLOOD SPECIMENOrdering Facility: [facility] Address: [address] [place] [address] Performed By: #### 5 7021-8 ####[facility] [id number] [place] [address] [place] Differential cell count method Nom (Bld) Auto Normal [facility] Comment on above: Order Comment: Speci men Type: BLOOD SPECIMENOrdering Facility: [facility] Address: [address] [place] [address] Performed By: #### 5 7021-8 ####[facility] [id number] [place] [address] [place] Eosinophils (Bld) [#/Vol] 0.11 10*3/uL Normal <0.46 [facility] Comment on above: Order Comment: Speci men Type: BLOOD SPECIMENOrdering Facility: [facility] Address: [address] [place] [address] Performed By: #### 5 7021-8 ####[facility] [id number] [place] [address] [place] Eosinophils/100 WBC (Bld) 1.7 % Normal [facility] Comment on above: Order Comment: Speci men Type: BLOOD SPECIMENOrdering Facility: [facility] Address: [address] [place] [address] Performed By: #### 5 7021-8 ####[facility] [id number] [place] [address] [place] Erythrocyte distribution width (RBC) [Ratio] 13.0 % Normal 11.5-15.0 [facility] Comment on above: Order Comment: Speci men Type: BLOOD SPECIMENOrdering Facility: [facility] Address: [address] [place] [address] Performed By: #### 5 7021-8 ####[facility] [id number] [place] [address] [place] Hematocrit (Bld) [Volume fraction] 38.0 % Normal 36.0-46.0 [facility] Comment on above: Order Comment: Speci men Type: BLOOD SPECIMENOrdering Facility: [facility] Address: [address] [place] [address] Performed By: #### 5 7021-8 ####[facility] BEACHESWNCLIA [id number] [place] [address] [place] Hemoglobin (Bld) [Mass/Vol] 12.5 g/dL Normal 11.5-15.5 [facility] Comment on above: Order Comment: Speci men Type: BLOOD SPECIMENOrdering Facility: [facility] Address: [address] [place] [address] Performed By: #### 5 7021-8 ####[facility] CHILDRENNCLIA [id number] [place] [address] [place] Immature granulocytes (Bld) [#/Vol] 10*3/uL Normal <0.10 [facility] Comment on above: Order Comment: Speci men Type: BLOOD SPECIMENOrdering Facility: [facility] Address: [address] [place] [address] Performed By: #### 5 7021-8 ####[facility] [id number] [place] [address] [place] Immature granulocytes/100 WBC (Bld) 0.3 % Normal [facility] Comment on above: Order Comment: Speci men Type: BLOOD SPECIMENOrdering Facility: [facility] Address: [address] [place] [address] Performed By: #### 5 7021-8 ####[facility] [id number] [place] [address] [place] Lymphocytes (Bld) [#/Vol] 1.67 10*3/uL Normal 1.00-4.00 [facility] Comment on above: Order Comment: Speci men Type: BLOOD SPECIMENOrdering Facility: [facility] Address: [address] [place] [address] Performed By: #### 5 7021-8 ####[facility] CHILDRENNCLIA [id number] [place] [address] [place] Lymphocytes/100 WBC (Bld) 25.1 % Normal [facility] Comment on above: Order Comment: Speci men Type: BLOOD SPECIMENOrdering Facility: [facility] Address: [address] [place] [address] Performed By: #### 5 7021-8 ####[facility] CHILDRENNICKY [id number] [place] [address] [place] MCH (RBC) [Entitic mass] 28.6 pg Normal 26.0-34.0 [facility] Comment on above: Order Comment: Speci men Type: BLOOD SPECIMENOrdering Facility: [facility] Address: [address] [place] [address] Performed By: #### 5 7021-8 ####[facility] CHILDRENHARDEEPNoé [id number] [place] [address] [place] MCHC (RBC) [Mass/Vol] 32.9 g/dL Normal 30.5-36.0 [facility] Comment on above: Order Comment: Speci men Type: BLOOD SPECIMENOrdering Facility: [facility] Address: [address] [place] [address] Performed By: #### 5 7021-8 ####[facility]STEV[facility] [id number] [place] [address] [place] MCV (RBC) [Entitic vol] 87.0 fL Normal 80.0-100.0 [facility] Comment on above: Order Comment: Speci men Type: BLOOD SPECIMENOrdering Facility: [facility] Address: [address] [place] [address] Performed By: #### 5 7021-8 ####[facility] CHILDRENNCLI [id number] [place] [address] [place] Monocytes (Bld) [#/Vol] 0.64 10*3/uL Normal <0.87 [facility] Comment on above: Order Comment: Speci men Type: BLOOD SPECIMENOrdering Facility: [facility] Address: [address] [place] [address] Performed By: #### 5 7021-8 ####[facility] [id number] [place] [address] [place] Monocytes/100 WBC (Bld) 9.6 % Normal [facility] Comment on above: Order Comment: Speci men Type: BLOOD SPECIMENOrdering Facility: [facility] Address: [address] [place] [address] Performed By: #### 5 7021-8 ####[facility] FOR CHILDRENNCA [id number] [place] [address] [place] Neutrophils (Bld) [#/Vol] 4.14 10*3/uL Normal 1.45-7.50 [facility] Comment on above: Order Comment: Speci men Type: BLOOD SPECIMENOrdering Facility: [facility] Address: [address] [place] [address] Performed By: #### 5 7021-8 ####[facility] [id number] [place] [address] [place] Neutrophils/100 WBC (Bld) 62.2 % Normal [facility] Comment on above: Order Comment: Speci men Type: BLOOD SPECIMENOrdering Facility: [facility] Address: [address] [place] [address] Performed By: #### 5 7021-8 ####[facility] [id number] [place] [address] [place] Nucleated RBC (Bld) [#/Vol] 10*3/uL Normal <0.01 [facility] Comment on above: Order Comment: Speci men Type: BLOOD SPECIMENOrdering Facility: [facility] Address: [address] [place] [address] Performed By: #### 5 7021-8 ####[facility] MILLWNCLIA [id number] [place] [address] [place] Nucleated RBC/100 WBC (Bld) [Ratio] 0.0 /100 WBC Normal [facility] Comment on above: Order Comment: Speci men Type: BLOOD SPECIMENOrdering Facility: [facility] Address: [address] [place] [address] Performed By: #### 5 7021-8 ####[facility] CHILDRENHARDEEPLIA [id number] [place] [address] [place] Platelet mean volume (Bld) [Entitic vol] 11.1 fL Normal 9.0-12.7 [facility] Comment on above: Order Comment: Speci men Type: BLOOD SPECIMENOrdering Facility: [facility] Address: [address] [place] [address] Performed By: #### 5 7021-8 ####[facility] [id number] [place] [address] [place] Platelets (Bld) [#/Vol] 243 10*3/uL Normal 150-400 [facility] Comment on above: Order Comment: Speci men Type: BLOOD SPECIMENOrdering Facility: [facility] Address: [address] [place] [address] Performed By: #### 5 7021-8 ####[facility] [id number] [place] [address] [place] RBC (Bld) [#/Vol] 4.37 10*6/uL Normal 3.90-5.20 [facility] Comment on above: Order Comment: Speci men Type: BLOOD SPECIMENOrdering Facility: [facility] Address: [address] [place] [address] Performed By: #### 5 7021-8 ####[facility] [id number] [place] [address] [place] WBC (Bld) [#/Vol] 6.65 10*3/uL Normal 3.70-11.00 [facility] Comment on above: Order Comment: Speci men Type: BLOOD SPECIMENOrdering Facility: [facility] Address: [address] [place] [address] Performed By: #### 5 7021-8 ####[facility] MIRAMARNoé [id number] [place] [address] [place] [facility] Comprehensive metabolic 2000 panelon 04-11-2025 Albumin [Mass/Vol] 4.0 g/dL Normal 3.9-4.9 [facility] Comment on above: Order Comment: Speci men Type: BLOOD SPECIMENOrdering Facility: [facility] Address: [address] [place] [address] Performed By: #### 2 4323-8 ####[facility] [id number] [place] [address] [place] ALP [Catalytic activity/Vol] 79 U/L Normal 34-123 [facility] Comment on above: Order Comment: Speci men Type: BLOOD SPECIMENOrdering Facility: [facility] Address: [address] [place] [address] Performed By: #### 2 4323-8 ####[facility] [id number] [address] [place] ALT [Catalytic activity/Vol] 14 U/L Normal 7-38 [facility] Comment on above: Order Comment: Speci men Type: BLOOD SPECIMENOrdering Facility: [facility] Address: [address] [place] [address] Performed By: #### 2 4323-8 ####[facility] CHILDRENNCLIA [id number] [place] [address] [place] Anion gap [Moles/Vol] 10 mmol/L Normal 8-15 [facility] Comment on above: Order Comment: Speci men Type: BLOOD SPECIMENOrdering Facility: [facility] Address: [address] [place] [address] Performed By: #### 2 4323-8 ####[facility] CHILDRENNCLIA [id number] [place] [address] [place] [place] AST [Catalytic activity/Vol] 15 U/L Normal 13-35 [facility] Comment on above: Order Comment: Speci men Type: BLOOD SPECIMENOrdering Facility: [facility] Address: [address] [place] [address] Performed By: #### 2 4323-8 ####[facility] [id number] [place] [address] [place] Bilirubin [Mass/Vol] 0.6 mg/dL Normal 0.2-1.3 [facility] Comment on above: Order Comment: Speci men Type: BLOOD SPECIMENOrdering Facility: [facility] Address: [address] [place] [address] Performed By: #### 2 4323-8 ####[facility]CL[facility] [id number] [place] [address] [place] Calcium [Mass/Vol] 9.2 mg/dL Normal 8.5-10.2 [facility] Comment on above: Order Comment: Speci men Type: BLOOD SPECIMENOrdering Facility: [facility] Address: [address] [place] [address] Performed By: #### 2 4323-8 ####[facility] [id number] [place] [address] [place] Chloride [Moles/Vol] 105 mmol/L Normal 98-107 [facility] Comment on above: Order Comment: Speci men Type: BLOOD SPECIMENOrdering Facility: [facility] Address: [address] [place] [address] Performed By: #### 2 4323-8 ####[facility] [id number] [place] [address] [place] CO2 [Moles/Vol] 23 mmol/L Normal 22-30 [facility] Comment on above: Order Comment: Speci men Type: BLOOD SPECIMENOrdering Facility: [facility] Address: [address] [place] [address] Performed By: #### 2 4323-8 ####[facility] [id number] [place] [address] [place] Creatinine [Mass/Vol] 1.17 mg/dL High 0.58-0.96 [facility] Comment on above: Order Comment: Speci men Type: BLOOD SPECIMENOrdering Facility: [facility] Address: [address] [place] [address] Performed By: #### 2 4323-8 ####[facility] [id number] [place] [address] [place] Creatinine and Glomerular filtration rate.predicted panel (S/P/Bld) 53 mL/min/1.73m??? Low >=60 [facility] Comment on above: Order Comment: Speci men Type: BLOOD SPECIMENOrdering Facility: [facility] Address: [address] [place] [address] Result Comment: Katey mated Glomerular Filtration Rate (eGFR) is calculated using the 2020 CKD-EPI creatinine equation. This equation utilizes serum creatinine, sex, and age as parameters. The creatinine assay has traceable calibration to isotope dilution-mass spectrometry. Refer to KDIGO guidelines for clinical interpretation. In patients with unstable renal function, e.g. those with acute kidney injury, the eGFR may not accurately reflect actual GFR. Performed By: #### 2 4323-8 ####[facility]ESWNCLIA [id number] [place] [address] [place] Glucose [Mass/Vol] 77 mg/dL Normal 74-99 [facility] Comment on above: Order Comment: Speci men Type: BLOOD SPECIMENOrdering Facility: [facility] Address: [address] [place] [address] Result Comment: The [place] Diabetes Association (ADA) provides guidance for cutoff values for fasting glucose and random glucose. The ADA defines fasting as no caloric intake for at least 8 hours. Fasting plasma glucose results between 100 to 125 mg/dL indicate increased risk for diabetes (prediabetes). Fasting plasma glucose results greater than or equal to 126 mg/dL meet the criteria for diagnosis of diabetes. In the absence of unequivocal hyperglycemia, results should be confirmed by repeat testing. In a patient with classic symptoms of hyperglycemia or hyperglycemic crisis, random plasma glucose results greater than or equal to 200 mg/dL meet the criteria for diagnosis of diabetes. Reference: Standards of Medical Care in Diabetes 2016, [place] Diabetes Association. Diabetes Care. 2016.39(Suppl 1). Performed By: #### 2 4323-8 ####[facility] BEACHESWHARDEEPNoé [id number] [place] [address] [place] Potassium [Moles/Vol] 4.1 mmol/L Normal 3.7-5.1 [facility] Comment on above: Order Comment: Speci men Type: BLOOD SPECIMENOrdering Facility: [facility] Address: [address] [place] [address] Performed By: #### 2 4323-8 ####[facility]DRENNICKY [id number] [place] [address] [place] Protein [Mass/Vol] 6.5 g/dL Normal 6.3-8.0 [facility] Comment on above: Order Comment: Speci men Type: BLOOD SPECIMENOrdering Facility: [facility] Address: [address] [place] [address] Performed By: #### 2 4323-8 ####[facility]CLIA [id number] [place] [address] [place] Sodium [Moles/Vol] 138 mmol/L Normal 136-144 [facility] Comment on above: Order Comment: Speci men Type: BLOOD SPECIMENOrdering Facility: [facility] Address: [address] [place] [address] Performed By: #### 2 4323-8 ####[facility] [id number] [place] [address] [place] Urea nitrogen [Mass/Vol] 10 mg/dL Normal 7-21 [facility] Comment on above: Order Comment: Jennyi men Type: BLOOD SPECIMENOrdering Facility: [facility] Address: [address] [place] [address] Performed By: #### 2 4323-8 ####[facility] [id number] [place] [address] [place] HbA1c (Bld)on 04-11-2025 Average glucose Estimated from glycated hemoglobin (Bld) [Mass/Vol] 117 mg/dL Normal [facility] Comment on above: Order Comment: Crystal cobb Type: BLOOD SPECIMENOrdering Facility: [facility] Address: [address] [place] [address] Result Comment: eAG: (Estimated average glucose) is a calculated value from HgbA1c and is auto claim representative of the average blood glucose level in the last 2-3 month period. Performed By: #### 5 5454-3 ####[facility] LABCLIA [id number] [place] [address] [place] HbA1c (Bld) [Mass fraction] 5.7 % High 4.3-5.6 [facility] Comment on above: Order Comment: Crystal jordyn Type: BLOOD SPECIMENOrdering Facility: [facility] Address: [address] [place] [address] Result Comment: [place] Diabetes Association guidelines indicate that patients with HgbA1c in the range 5.7-6.4% are at increased risk for development of diabetes, and intervention by lifestyle modification may be beneficial. HgbA1c greater or equal to 6.5% is considered diagnostic of diabetes. Performed By: #### 5 5454-3 ####[facility] LABCLIA [id number] [address] Lipid 1996 panelon 5 Cholesterol [Mass/Vol] 172 mg/dL Normal <200 [facility] Comment on above: Order Comment: Speci men Type: BLOOD SPECIMENOrdering Facility: [facility] Address: [address] [place] [address] Result Comment: <200 mg/dL, Desirable 200-239 mg/dL, Borderline high >239 mg/dL, High Performed By: #### 2 4331-1 ####[facility] LABCLIA [id number] [address] [id number] [place] [address] Cholesterol in HDL [Mass/Vol] 55 mg/dL Normal >39 [facility] Comment on above: Order Comment: Speci men Type: BLOOD SPECIMENOrdering Facility: [facility] Address: [address] [place] [address] Result Comment: 40-5 9 mg/dL, Acceptable >59 mg/dL, High: Negative risk factor for coronary heart disease <40 mg/dL, Low: Positive risk factor for coronary heart disease Performed By: #### 2 4331-1 ####[facility] LABCLIA [id number] [address] [id number] [place] [address] Cholesterol in LDL [Mass/Vol] 93 mg/dL Normal <100 [facility] Comment on above: Order Comment: Speci men Type: BLOOD SPECIMENOrdering Facility: [facility] Address: [address] [place] [address] Result Comment: <100 mg/dL, Optimal 100-129 mg/dL, Near optimal/above optimal 130-159 mg/dL, Borderline high 160-189 mg/dL, High >189 mg/dL, Very high Secondary prevention optimal LDL Cholesterol levels are recommended to be <70 mg/dL LDL cholesterol is calculated using the Ceja-NIH equation. Performed By: #### 2 4331-1 ####[facility] LABCLIA [id number] [address] [id number] [place] [address] Cholesterol in LDL/Cholesterol in HDL [Mass ratio] 1.69 {ratio} Normal <2.54 [facility] Comment on above: Order Comment: Speci men Type: BLOOD SPECIMENOrdering Facility: [facility] Address: [address] [place] [address] Result Comment: Refe rence: 1. National Cholesterol Education Program ATP III Guideline At-A-Glance Quick Desk Reference: National Heart, Lung, and Blood [place]. National Institutes of Health. 2001: NIH Publication No. 01-3305. 2. An International Atherosclerosis Society position paper: global recommendations for the management of dyslipidemia: executive summary, Atherosclerosis. 2014: 232(2):410-413. Performed By: #### 2 4331-1 ####[facility] LABCLIA [id number] [address] [id number] [address] [facility] Cholesterol in VLDL [Mass/Vol] 22 mg/dL Normal <30 [facility] Comment on above: Order Comment: Speci men Type: BLOOD SPECIMENOrdering Facility: [facility] Address: [address] [place] [address] Performed By: #### 2 4331-1 ####[facility] LABIA [id number] [address] [id number] [place] [address] [place] Cholesterol non HDL [Mass/Vol] 117 mg/dL Normal <130 [facility] Comment on above: Order Comment: Speci men Type: BLOOD SPECIMENOrdering Facility: [facility] Address: [address] [place], [place] [address] Result Comment: <130 mg/dL, Optimal 130-159 mg/dL, Near optimal/above optimal 160-189 mg/dL, Borderline high 190-219 mg/dL, High >219 mg/dL, Very high Secondary prevention optimal non HDL Cholesterol levels are recommended to be <100 mg/dL Performed By: #### 2 4331-1 ####[facility] LABCLIA [id number] [address] [id number] [place] [address] [place] Cholesterol.total/Cho lesterol in HDL [Mass ratio] 3.13 {ratio} Normal <5.10 [facility] Comment on above: Order Comment: Speci men Type: BLOOD SPECIMENOrdering Facility: [facility] Address: [address] [place], [place] [address] Performed By: #### 2 4331-1 ####[facility] LABCLIA [id number] [place] [id number] [facility] [id number] [place] [address] [place] FASTING TIME 12 hrs Normal [facility] Comment on above: Order Comment: Speci men Type: BLOOD SPECIMENOrdering Facility: [facility] Address: [address] [place] [address] Performed By: #### 2 4331-1 ####[facility] LABCLIA [id number] [address] [address] [facility] [id number] [place] [address] [place] Triglyceride [Mass/Vol] 137 mg/dL Normal <150 [facility] Comment on above: Order Comment: Speci men Type: BLOOD SPECIMENOrdering Facility: [facility] Address: [address] [facility] [address] Result Comment: <150 mg/dL, Normal 150-199 mg/dL, Borderline high 200-499 mg/dL, High >499 mg/dL, Very high Performed By: #### 2 4331-1 ####[facility] LABCLIA [id number] [facility] [id number] [facility] [id number] [address] [place] RF Gastrointestinal tract up per Views W air contrast PO and W barium contrast POOrdered By: Ccmarvin Provider on 04-09-2025 Interpretation and review of laboratory results Abnormal [facility] Radiology Result ACTIONABLE Abnormal [facility] Comment on above: This report contains an incidental or actionable finding. This finding may be a new finding separate from the reason your provider ordered the imaging test or it may be an already known finding that needs additional or continued follow-up. Because of this incidental or actionable finding, you may need another test (imaging or a different type of test). Please contact your provider for the next steps. [facility] RF Gastrointestinal tract up per Views W air contrast PO and W barium contrast Avery 04-09-2025 IMPRESSION: Contour irregularity at the distal esophagus at the gastroesophageal junction region. Cannot exclude underlying stricturing/scarring or other underlying abnormality or lesion. Recommend correlation with EGD. Small hiatal hernia Gastroesophageal reflux. ACTIONABLE RESULT: FOLLOW-UP Acuity: Actionable Findings: Digestive Tract Routing Code: GI_1 Recommendation: SUBSPECIALTY CONSULTATION SUGGESTED Time Frame: Additional evaluation as described in the impression COMMUNICATION: Results will be communicated with the ordering provider via [employer] staff message or phone message by Imaging Support Services within 2 business days of report finalization. --END OF FINDING-- Physical Testing Supervisor: SUHAS Transcribe Date/Time: Apr 09 2025 11:37A Dictated by : OBINNA GARCIA MD This examination was interpreted and the report reviewed and electronically signed by: OBINNA GARCIA MD on Apr 09 2025 3:46PM EST [facility] * * *Final Report* * * DATE OF EXAM: Apr 09 2025 9:21AM [id number] - XR UPPER GI DOUBLE CONTRAST/AIR / PROCEDURE REASON: multiple diagnoses * * * * Physician Interpretation * * * * UPPER GI CLINICAL INFORMATION: Hiatal hernia. TECHNIQUE: A biphasic examination was performed with effervescent granules (E-Z-Gas II- 4 grams), 10 cc of water followed by high density barium (EZHD 120 mL) followed by low density barium (EZpaque 177 mL). Study performed by Patrick Rob RPA. FINDINGS: There is no mass, ring, stricture, or esophagitis. Small hiatal hernia There is some contour irregularity at the distal esophagus at the gastroesophageal junction region seen on the frontal image The stomach, and duodenum are normal. There is no mass or ulcer present. Reflux was elicited. Total fluoroscopy time 0:59 (min:sec) [facility] * * *Final Report* * * DATE OF EXAM: Apr 09 2025 9:21AM [id number] - XR UPPER GI DOUBLE CONTRAST/AIR / PROCEDURE REASON: multiple diagnoses * * * * Physician Interpretation * * * * UPPER GI CLINICAL INFORMATION: Hiatal hernia. TECHNIQUE: A biphasic examination was performed with effervescent granules (E-Z-Gas II- 4 grams), 10 cc of water followed by high density barium (EZHD 120 mL) followed by low density barium (EZpaque 177 mL). Study performed by Patrick Rob RPA. FINDINGS: There is no mass, ring, stricture, or esophagitis. Small hiatal hernia There is some contour irregularity at the distal esophagus at the gastroesophageal junction region seen on the frontal image The stomach, and duodenum are normal. There is no mass or ulcer present. Reflux was elicited. Total fluoroscopy time 0:59 (min:sec) IMPRESSION IMPRESSION: Contour irregularity at the distal esophagus at the gastroesophageal junction region. Cannot exclude underlying stricturing/scarring or other underlying abnormality or lesion. Recommend correlation with EGD. Small hiatal hernia Gastroesophageal reflux. ACTIONABLE RESULT: FOLLOW-UP Acuity: Actionable Findings: Digestive Tract Routing Code: GI_1 Recommendation: SUBSPECIALTY CONSULTATION SUGGESTED Time Frame: Additional evaluation as described in the impression COMMUNICATION: Results will be communicated with the ordering provider via [employer] staff message or phone message by [facility] Support [facility] within 2 business days of report finalization. --END OF FINDING-- Physical Testing Supervisor: PSCB Transcribe Date/Time: Apr 09 2025 11:37A Dictated by : OBINNA GARCIA MD This examination was interpreted and the report reviewed and electronically signed by: OBINNA GARCIA MD on Apr 09 2025 3:46PM EST [facility] Radiology Study observation (narrative) [facility] XR UPPER GI DOUBLE CONTRAST/ AIRon 04-09-2025 XR UPPER GI DOUBLE CONTRAST/AIR * * *Final Report* * * DATE OF EXAM: Apr 09 2025 9:21AM [id number] - XR UPPER GI DOUBLE CONTRAST/AIR / PROCEDURE REASON: multiple diagnoses * * * * Physician Interpretation * * * * UPPER GI CLINICAL INFORMATION: Hiatal hernia. TECHNIQUE: A biphasic examination was performed with effervescent granules (E-Z-Gas II- 4 grams), 10 cc of water followed by high density barium (EZHD 120 mL) followed by low density barium (EZpaque 177 mL). Study performed by Patrick Rob RPA. FINDINGS: There is no mass, ring, stricture, or esophagitis. Small hiatal hernia There is some contour irregularity at the distal esophagus at the gastroesophageal junction region seen on the frontal image The stomach, and duodenum are normal. There is no mass or ulcer present. Reflux was elicited. Total fluoroscopy time 0:59 (min:sec) IMPRESSION: Contour irregularity at the distal esophagus at the gastroesophageal junction region. Cannot exclude underlying stricturing/scarring or other underlying abnormality or lesion. Recommend correlation with EGD. Small hiatal hernia Gastroesophageal reflux. ACTIONABLE RESULT: FOLLOW-UP Acuity: Actionable Findings: Digestive Tract Routing Code: GI_1 Recommendation: SUBSPECIALTY CONSULTATION SUGGESTED Time Frame: Additional evaluation as described in the impression COMMUNICATION: Results will be communicated with the ordering provider via [employer] staff message or phone message by [facility] Support Services within 2 business days of report finalization. --END OF FINDING-- Physical Testing Supervisor: PSCB Transcribe Date/Time: Apr 09 2025 11:37A Dictated by : OBINNA GARCIA MD This examination was interpreted and the report reviewed and electronically signed by: OBINNA GARCIA MD on Apr 09 2025 3:46PM EST [id number] ACTIONABLE Invalid Interpretation Code [facility] FREDERICKOVyissel 03-24-2025 CNOV Office Visit (FAMPWS ) ----- SUSAN BOBBY ([id number]) 1960 F Date Time Provider Department 03/24/25 5:00 PM [facility] During your visit today, we recorded the following information about you: Pulse Blood pressure Weight 62/minute 134/82 76.2 kg Jose Bullard MD 03/24/2025 5:21 PM Signed Traci is a 65-year-old female with a history of DM, HTN, hyperlipidemia, GERD, and osteopenia, presenting for a follow-up visit. HPI Diabetes Mellitus: - No recent episodes of hyperglycemia or hypoglycemia. - Monitors blood glucose occasionally; recent fasting glucose readings around 92 mg/dL. - Denies polyuria, polydipsia, or paresthesia in extremities. Hypertension: - Well-controlled with benazepril and HCTZ. - Recent BP readin/82 mmHg. Hyperlipidemia: - Managed with rosuvastatin; no reported side effects. GERD: - Managed with pantoprazole; no reported side effects. - Recent episodes of emesis have resolved; last episode occurred after a cruise. - Undergoing evaluation by a department of natural resources officer; scheduled for a barium swallow study. Osteopenia: - Diagnosed approximately one year ago. - Encouraged to maintain an active lifestyle and ensure adequate intake of calcium and vitamin D. Weight Loss: - Lost 6 lbs since September, currently weighing 168 lbs. - Actively trying to lose weight through natural methods. Right Foot Callus: - Painful callus on the right foot, likely due to prolonged standing (up to 12 hours/day). - Previously evaluated by Podiatry - denies signs of infection. MEDICATIONS: Current Outpatient Medications Medication Sig pantoprazole DR (PROTONIX) 40 mg tablet Take 1 tablet by mouth once daily. benazepril (LOTENSIN) 20 mg tablet Take 1 tablet by mouth once daily. hydroCHLOROthiazide 25 mg tablet Take 1 tablet by mouth once daily. metFORMIN (GLUCOPHAGE) 500 mg tablet Take 1 tablet by mouth daily with breakfast. rosuvastatin (CRESTOR) 5 mg tablet Take 1 tablet by mouth once daily. multivitamin (DAILY VITAMIN ORAL) Take by mouth once daily. calcium phosphate dibas/vit D3 (VITAMIN D, WITH CALCIUM, ORAL) Take by mouth. blood sugar diagnostic (BLOOD GLUCOSE TEST) test strip Test blood sugar(s) 1 times daily. Dx: Type 2 DM - Controlled E11.9 Insulin: No No current facility-administered medications for this visit. ALLERGIES: ALLERGIES No Known Allergies PAST MEDICAL HISTORY Diagnosis Date Acute gastritis DM (diabetes mellitus) (HCC) GERD (gastroesophageal reflux disease) Hiatal hernia HLD (hyperlipidemia) HTN (hypertension) PAST SURGICAL HISTORY Procedure Laterality Date CHOLECYSTECTOMY N/A done when she was 23 COLONOSCOPY 01/13/2023 EGD W/O [facility] SPEC VARICIES INJ unsure of year EGD W/O [facility] SPEC VARICIES INJ 05/19/2022 TOTAL ABDOMINAL HYSTERECT W/WO RMVL TUBE OVARY N/A 10/2017 for abnormal bleeding. no cancer VAGINAL HYSTERECTOMY FAMILY HISTORY Problem Relation Age of Onset Hypertension Mother Dementia Father Colon Cancer No Family History Social History Tobacco Use Smoking status: Never Smokeless tobacco: Never Vaping Use Vaping status: Never Used Substance Use Topics Alcohol use: No Drug use: No Reviewed current medications, allergies, past medical history, surgical history, family history and social history today. REVIEW OF SYSTEMS Cardiovascular: (-) lower extremity swelling Gastrointestinal: (-) vomiting Genitourinary: (-) polyuria Skin: (+) right foot callus soreness Neurological: (-) dizziness, (-) paresthesias Endocrine: (-) polydipsia HEALTH MAINTENANCE: Reviewed health maintenance issues today and recommended the following in detail. BP Controlled (<130/80) Never done Urine Albumin:Creatinine Ratio due on 03/22/2025 LDL Cholesterol due on 03/22/2025 Mammogram Screening due on 06/11/2025 LAB REVIEWED: Labs: (September) - A1C: 5.6 - Kidney function: stable - B12: normal - Magnesium: normal Tests: - Stomach emptying study Imaging: - Bone density test: Osteopenia VITALS: BP 134/82 Pulse 62 Wt 76.2 kg (168 lb) SpO2 97% BMI 31.74 kg/m? Last 4 Encounter Wt Readings: Date: Wt: 03/24/2025 76.2 kg (168 lb) 03/11/2025 78 kg (172 lb) 01/03/2025 75.8 kg (167 lb) 09/23/2024 79.2 kg (174 lb 9.7 oz) PHYSICAL EXAMINATION: GENERAL: NAD, alert and oriented. SKIN: Unremarkable, no rash or skin lesions. NECK: Supple, no lymphadenopathy, normal thyroid, no carotid bruits. LUNGS: Clear to auscultation bilaterally, no wheezes/rhonchi/rales. HEART: Regular rate and rhythm, no murmurs. No ectopy. EXTREMITIES: Normal, no deformities, no skin discoloration, no edema. Callus noted on right foot. NEURO: Awake, alert and oriented x3, cranial nerves II-XII grossly intact, normal gait, no involuntary motions. ASSESSMENT AND PLAN 1. Hypertension, essential (I10) (more content not included)... Normal [facility] GASTRIC EMPTYING SOLIDon 03-21-2025 [place] GASTRIC EMPTYING SOLID * * *Final Report* * * DATE OF EXAM: Mar 21 2025 4:05PM ANDREA [facility] [place] GASTRIC EMPTYING SOLID / PROCEDURE REASON: multiple diagnoses * * * * Physician Interpretation * * * * SOLID MEAL GASTRIC EMPTYING STUDY 03/21/2025 4:22 PM: CLINICAL HISTORY: 65 years old Female patient with history of early satiety, dyspepsia. TECHNIQUE: 1.17 mCi Tc-99m Sulfur Colloid was given orally in a meal consisting of 3 ounces of egg beaters, 1 1/2 pieces of toast, 3/4 ounce of jelly and 6 ounces of water, consumed over 5 to 10 minutes. 1-minute posterior and anterior spot images of the stomach region at times 0, 1, 2, and 4 hours were obtained. Geometric mean was used to plot a time-activity curve. RESULT: Solid study demonstrates: - 40% gastric retention at 1 hour (normal range, 37-90%), - 3% retention at 2 hours (normal range, 30-60%), and - 1% retention at 4 hours (normal range, 0-10%). IMPRESSION: NORMAL RATE OF GASTRIC EMPTYING OF A SOLID MEAL. Physical Testing Supervisor: PSCB Transcribe Date/Time: Mar 21 2025 4:22P Dictated by : ZUNILDA AUGUSTIN MD This examination was interpreted and the report reviewed and electronically signed by: ZUNILDA AUGUSTIN MD on Mar 21 2025 4:23PM EST [id number] Normal [facility] Stomach Views for gastric emptying solid phase W radionuclide Avery 03-21-2025 IMPRESSION: NORMAL RATE OF GASTRIC EMPTYING OF A SOLID MEAL. Physical Testing Supervisor: PSYCHIATRIC Transcribe Date/Time: Mar 21 2025 4:22P Dictated by : ZUNILDA AUGUSTIN MD This examination was interpreted and the report reviewed and electronically signed by: ZUNILDA AUGUSTIN MD on Mar 21 2025 4:23PM EST DIVISION OF RADIOLOGY * * *Final Report* * * DATE OF EXAM: Mar 21 2025 4:05PM ANDREA 0017 - NM GASTRIC EMPTYING SOLID / PROCEDURE REASON: multiple diagnoses * * * * Physician Interpretation * * * * SOLID MEAL GASTRIC EMPTYING STUDY 03/21/2025 4:22 PM: CLINICAL HISTORY: 65 years old Female patient with history of early satiety, dyspepsia. TECHNIQUE: 1.17 mCi Tc-99m Sulfur Colloid was given orally in a meal consisting of 3 ounces of egg beaters, 1 1/2 pieces of toast, 3/4 ounce of jelly and 6 ounces of water, consumed over 5 to 10 minutes. 1-minute posterior and anterior spot images of the stomach region at times 0, 1, 2, and 4 hours were obtained. Geometric mean was used to plot a time-activity curve. RESULT: Solid study demonstrates: - 40% gastric retention at 1 hour (normal range, 37-90%), - 3% retention at 2 hours (normal range, 30-60%), and - 1% retention at 4 hours (normal range, 0-10%). DIVISION OF RADIOLOGY Provider, [facility] - 03/21/2025 * * *Final Report* * * DATE OF EXAM: Mar 21 2025 4:05PM [place] [id number] [facility] GASTRIC EMPTYING SOLID / PROCEDURE REASON: multiple diagnoses * * * * Physician Interpretation * * * * SOLID MEAL GASTRIC EMPTYING STUDY 03/21/2025 4:22 PM: CLINICAL HISTORY: 65 years old Female patient with history of early satiety, dyspepsia. TECHNIQUE: 1.17 mCi Tc-99m Sulfur Colloid was given orally in a meal consisting of 3 ounces of egg beaters, 1 1/2 pieces of toast, 3/4 ounce of jelly and 6 ounces of water, consumed over 5 to 10 minutes. 1-minute posterior and anterior spot images of the stomach region at times 0, 1, 2, and 4 hours were obtained. Geometric mean was used to plot a time-activity curve. RESULT: Solid study demonstrates: - 40% gastric retention at 1 hour (normal range, 37-90%), - 3% retention at 2 hours (normal range, 30-60%), and - 1% retention at 4 hours (normal range, 0-10%). IMPRESSION IMPRESSION: NORMAL RATE OF GASTRIC EMPTYING OF A SOLID MEAL. Physical Testing Supervisor: SUHAS Transcribe Date/Time: Mar 21 2025 4:22P Dictated by : ZUNILDA AUGUSTIN MD This examination was interpreted and the report reviewed and electronically signed by: ZUNILDA AUGUSTIN MD on Mar 21 2025 4:23PM [facility] Radiology Study observation (narrative) [facility] Stomach Views for gastric emptying solid phase W radionuclide POOrdered By: Zuleika Provider on 03-21-2025 [facility] CNOVon 03-11-2025 CNOV Office Visit (GSTNOR ) ----- SUSAN BOBBY ([id number]) 1960 F Date Time Provider Department 03/11/25 2:15 PM KYLE ALEXANDRA GSTNOR During your visit today, we recorded the following information about you: Pulse Blood pressure Weight Height 78/minute 120/72 78 kg 1.549 m Kyle Alexandra, [facility] 03/11/2025 2:38 PM Signed CHIEF COMPLAINT: Patient presents with: Vomiting: ER 12/29/24. Severe acid reflux since the age of 20. Gets to the point that she vomits. Pantoprazole is sometimes helpful This consult was requested by Jose Bullard MD for an opinion regarding GERD, vomiting. My final recommendations will be communicated to the requesting health care provider by way of the shared medical record for internal providers or letter via the [employer] for external providers. HPI: Susan Bobby is a 65 year old female with hx of DMII, GERD, HTN, HLD, hiatal hernia who presents for Vomiting (ER 12/29/24. Severe acid reflux since the age of 20. Gets to the point that she vomits. Pantoprazole is sometimes helpful). She has had longstanding GERD since she was a teenager. She will have issues with dysphagia to solids, and it will trigger her to vomit. She has symptoms at night. (+) early satiety She has GERD and heartburn daily despite pantoprazole (she has only been using it every other day). She will use Tums PRN She has been on prilosec in the past. No caffeine, NSAID use. Recent CT a/p negative EGD 07/2024 showed mod/large hiatal hernia, antral erythema Record Review: [facility] / Outside records reviewed. EGD 08/07/24: Impression: - Normal first portion of the duodenum and second portion of the duodenum. - Erythematous mucosa in the antrum. Biopsied. - Medium-sized hiatal hernia. - Z-line irregular, 35 cm from the incisors. Biopsied. FINAL DIAGNOSIS A. Stomach, biopsy: - Fundic mucosa with mild chronic inactive gastritis. - See comment. B. Esophagogastric junction, biopsy: - Mildly reactive squamous mucosa. - No evidence of intestinal metaplasia or dysplasia. Addendum H. pylori immunostain performed on the stomach biopsy (part A) to evaluate the chronic gastritis is negative for organisms. PAST MEDICAL HISTORY Diagnosis Date Acute gastritis DM (diabetes mellitus) (HCC) GERD (gastroesophageal reflux disease) Hiatal hernia HLD (hyperlipidemia) HTN (hypertension) PAST SURGICAL HISTORY Procedure Laterality Date CHOLECYSTECTOMY N/A done when she was 23 COLONOSCOPY 01/13/2023 EGD W/O [facility] SPEC VARICIES INJ unsure of year EGD W/O [facility] SPEC VARICIES INJ 05/19/2022 TOTAL ABDOMINAL HYSTERECT W/WO RMVL TUBE OVARY N/A 10/2017 for abnormal bleeding. no cancer VAGINAL HYSTERECTOMY Allergies: ALLERGIES No Known Allergies Medications: gabapentin (NEURONTIN) 300 mg capsule Take 300 mg by mouth daily at bedtime. pantoprazole DR (PROTONIX) 40 mg tablet Take 1 tablet by mouth once daily. benazepril (LOTENSIN) 20 mg tablet Take 1 tablet by mouth once daily. hydroCHLOROthiazide 25 mg tablet Take 1 tablet by mouth once daily. metFORMIN (GLUCOPHAGE) 500 mg tablet Take 1 tablet by mouth daily with breakfast. rosuvastatin (CRESTOR) 5 mg tablet Take 1 tablet by mouth once daily. calcium phosphate dibas/vit D3 (VITAMIN D, WITH CALCIUM, ORAL) Take by mouth. multivitamin (DAILY VITAMIN ORAL) Take by mouth once daily. blood sugar diagnostic (BLOOD GLUCOSE TEST) test strip Test blood sugar(s) 1 times daily. Dx: Type 2 DM - Controlled E11.9 Insulin: No FAMILY HISTORY Problem Relation Age of Onset Hypertension Mother Dementia Father Colon Cancer No Family History Employer And Job Title: None on file Years Of Education Completed: Not specified Marital Status: Social History Tobacco Use Smoking status: Never Smokeless tobacco: Never Vaping Use Vaping status: Never Used Substance Use Topics Alcohol use: No Drug use: No Review of Systems: Review of Systems Gastrointestinal: Positive for abdominal distention. Gas, Heartburn All other systems reviewed and are negative. Are you taking any blood thinners? No Physical Examination: Pulse 78 Ht 5' 1 (1.55m) Wt 172 lb (78.0kg) SpO2 98% BMI 32.52 kg/(m2). Physical Exam Vitals and nursing note reviewed. Constitutional: Appearance: Normal appearance. She is obese. HENT: Head: Normocephalic and atraumatic. Eyes: General: No scleral icterus. Cardiovascular: Rate and Rhythm: Normal rate and regular rhythm. Pulmonary: Breath sounds: Normal breath sounds. Abdominal: General: Abdomen is flat. Bowel sounds are normal. Palpations: Abdomen is soft. Tenderness: There is abdominal tenderness in the epigastric area. There is no guarding or rebound. Skin: General: Skin is warm and dry. Neurological: Mental Status: She is alert and oriented to person, plac (more content not included)... Normal [facility] CNCOon 01-03-2025 CNCO Letter Text Normal [facility] CNOVon 01-03-2025 CNOV Office Visit (FAMPWS ) ----- SUSAN BOBBY ([id number]) 1960 F Date Time Provider Department 01/03/25 2:20 PM JOSE BULLARDWS During your visit today, we recorded the following information about you: Temperature Pulse Blood pressure Weight 98.2 degrees 54/minute 122/78 75.8 kg Jose Bullard MD 01/04/2025 11:51 AM Signed Patient presents with: ER F/U: Flank pain given gabapentin did finally take one last night. Not using oxycodone. Was able to eat some soup today. HPI: Patient presents today for office visit for follow up. Seen in ER in [place] and then twice here. No trauma. Was on a cruise. Started having vomiting. Had ct imaging there and at [facility]. Had multiple episodes of vomiting on the ship and one episode of diarrhea. Pain was in her back. Improved by standing in a showed. Had a low grade temp in [place]. No urinary issues. Biggest issue for all of them was severe pain in back and flank she believes was from vomiting. She is feeling better with her back pain. No radicular symptoms. No urinary or bowel issues. She currently is back to her baseline. Apparently has been having intermittent vomiting issues for some time. Happens in cycles. No bloody or black stools. Had egd in 08/15 Er had referred her back to surgery. I think gi would be more appropriate. Does not use thc. No current etoh. Not a smoker. Is on appi. No chest pain or shortness of breath. MEDICATIONS: Current Outpatient Medications Medication Sig gabapentin (NEURONTIN) 300 mg capsule Take 300 mg by mouth daily at bedtime. pantoprazole DR (PROTONIX) 40 mg tablet Take 1 tablet by mouth once daily. benazepril (LOTENSIN) 20 mg tablet Take 1 tablet by mouth once daily. hydroCHLOROthiazide 25 mg tablet Take 1 tablet by mouth once daily. metFORMIN (GLUCOPHAGE) 500 mg tablet Take 1 tablet by mouth daily with breakfast. rosuvastatin (CRESTOR) 5 mg tablet Take 1 tablet by mouth once daily. calcium phosphate dibas/vit D3 (VITAMIN D, WITH CALCIUM, ORAL) Take by mouth. multivitamin (DAILY VITAMIN ORAL) Take by mouth once daily. blood sugar diagnostic (BLOOD GLUCOSE TEST) test strip Test blood sugar(s) 1 times daily. Dx: Type 2 DM - Controlled E11.9 Insulin: No No current facility-administered medications for this visit. ALLERGIES: ALLERGIES No Known Allergies PAST MEDICAL HISTORY Diagnosis Date Acute gastritis DM (diabetes mellitus) (HCC) GERD (gastroesophageal reflux disease) Hiatal hernia HLD (hyperlipidemia) HTN (hypertension) PAST SURGICAL HISTORY Procedure Laterality Date CHOLECYSTECTOMY N/A done when she was 23 COLONOSCOPY 01/13/2023 EGD W/O [facility] SPEC VARICIES INJ unsure of year EGD W/[facility] SPEC VARICIES INJ 05/19/2022 TOTAL ABDOMINAL HYSTERECT W/WO RMVL TUBE OVARY N/A 10/2017 for abnormal bleeding. no cancer VAGINAL HYSTERECTOMY FAMILY HISTORY Problem Relation Age of Onset Hypertension Mother Dementia Father Social History Tobacco Use Smoking status: Never Smokeless tobacco: Never Vaping Use Vaping status: Never Used Substance Use Topics Alcohol use: No Drug use: No Reviewed current medications, allergies, past medical history, surgical history, family history and social history today. REVIEW OF SYSTEMS All other reviewed and negative other than HPI. VITALS: BP 122/78 Pulse (!) 54 Temp 36.8 ?C (98.2 ?F) Wt 75.8 kg (167 lb) SpO2 98% BMI 31.55 kg/m? Last 4 Encounter Wt Readings: Date: Wt: 01/03/2025 75.8 kg (167 lb) 09/23/2024 79.2 kg (174 lb 9.7 oz) 08/07/2024 76.2 kg (168 lb) 06/26/2024 76.4 kg (168 lb 6.4 oz) PHYSICAL EXAMINATION: General appearance: Well appearing, alert, in no acute distress, well-hydrated, well nourished. Skin: Skin color, texture, turgor normal, no suspicious rashes or lesions Head: Normocephalic, no masses, lesions, tenderness or abnormalities Lungs: Lungs clear to auscultation. No wheezing, rhonchi, rales Heart: RRR without murmur, gallop, or rubs. No ectopy Abdomen: Normal abdominal exam, Abdomen soft, non-tender. Bowel sounds normal. No masses, organomegaly Extremities: No deformities, edema, skin discoloration, clubbing or cyanosis. Good capillary refill. Musculoskeletal: No joint swelling, deformity, or tenderness Back not tender. ASSESSMENT/PLAN: 1. Cyclical vomiting syndrome not associated with migraine - ICD9: 536.2, ICD10: R11.15 (primary diagnosis) -continue ppi. Red flags for re-assessment reviewed with patient in detail. - CONSULT TO GASTROENTEROLOGY 2. Flank pain - ICD9: 789.09, ICD10: R10.9 - improved. Suspicion was musculoskeletal from vomiting episode. Red flags for re-assessment reviewed with patient in detail. Call if recurs. 3. Controlled type 2 diabetes mellitus without complication, unspecified whether half-way insulin use (HCC) - ICD9: 250.00, ICD10: E11.9 - (more content not included)... Normal [facility] 12 Lead EKGon 12-31-2024 12 Lead EKG [facility] [address] [place] [address] 12 Lead EKG 12/31/24 1624 MR#: [id number] Acct: [id number] Name: SUSAN BOBBY Rep #: [id number] : 1960 64 From: Bette Epps MD Attending Dr: Status: DEP ER Ordering Dr: Carlos A Velez DO Date: 12/31/24 Location: ED Sex: F AA Admitted: Test Reason : GENERAL Blood Pressure : */* mmHG Vent. Rate : 55 BPM Atrial Rate : 55 BPM P-R Int : 136 ms QRS Dur : 86 ms QT Int : 476 ms P-R-T Axes : 25 3 57 degrees QTcB Int : 455 ms Sinus bradycardia T wave abnormality, consider anterior ischemia Abnormal ECG Confirmed by MARIELA LARSON, RIGO ([id number]), editorial director GAIL WAYNE ([id number]) on 2025 11:18:59 AM Referred By: Confirmed By: RIGO EPPS MD 01/06/25 1119 Date Bette Epps MD CC: Dr. Carlos A Velez, DO; Dr. Jose Bullard MD Signed Normal [facility] Absolute neutrophil countOrd ered By: Carlos A Velez on 12-31-2024 Neutrophils (Bld) [#/Vol] 9.1 10*3/uL High 2.0-7.7 [facility] Anion gap in Serum or Plasma Ordered By: Carlos A Velez on 12-31-2024 Anion gap [Moles/Vol] 11 mmol/L - [facility] BUN/creatinine ratioOrdered By: Carlos A Velez on 12-31-2024 Urea nitrogen/Creatinine [Mass ratio] 12.6 mg/mg - [facility] Basic Metabolic Profile (BMP )on 12-31-2024 BUN/CRE 12.6 RATIO Normal 08-11 [facility] Comment on above: Performed By: #### L 300.3900, L100.0100, L300.4310, L500.2500 ####[facility] [address] [place], [address] Calcium [Mass/Vol] 8.9 mg/dL Normal 7.6-11.0 [facility] Comment on above: Performed By: #### L 300.3900, L100.0100, L300.4310, L500.2500 ####[facility] [address] [place], [address] Chloride [Moles/Vol] 109 mmol/L High 98-108 [facility] Comment on above: Performed By: #### L 300.3900, L100.0100, L300.4310, L500.2500 ####[facility] [address] [place], [address] CO2 [Moles/Vol] 23.7 mmol/L Normal 21.0-32.0 [facility] Comment on above: Performed By: #### L 300.3900, L100.0100, L300.4310, L500.2500 ####[facility] [address] [place], [address] Creatinine [Mass/Vol] 1.17 mg/dL Normal 0.70-1.20 [facility] Comment on above: Performed By: #### L 300.3900, L100.0100, L300.4310, L500.2500 ####[facility] [address] [place], [address] ECRCL 46.97 ml/min Low 50-250 [facility] Comment on above: Performed By: #### L 300.3900, L100.0100, L300.4310, L500.2500 ####[facility] [address] [place], [address] GAP 11 Normal 5-15 [facility] Comment on above: Performed By: #### L 300.3900, L100.0100, L300.4310, L500.2500 ####[facility] [address] [place], [address] GFR/1.73 sq M.predicted among non-blacks MDRD (S/P/Bld) [Vol rate/Area] 53 mL/min/{1.73_m2} Low >60 [facility] Comment on above: Result Comment: mL/m in/1.73m2 CKD-EPI Creatinine Equation (2020) Performed By: #### L 300.3900, L100.0100, L300.4310, L500.2500 ####[facility] [address] [place], [address] Glucose [Mass/Vol] 96 mg/dL Normal 70-99 [facility] Comment on above: Performed By: #### L 300.3900, L100.0100, L300.4310, L500.2500 ####[facility] [address] [place], [address] Potassium [Moles/Vol] 3.5 mmol/L Normal 3.3-5.1 [facility] Comment on above: Performed By: #### L 300.3900, L100.0100, L300.4310, L500.2500 ####[facility] [address] [place], [address] Sodium [Moles/Vol] 144 mmol/L Normal 133-145 [facility] Comment on above: Performed By: #### L 300.3900, L100.0100, L300.4310, L500.2500 ####[facility] [address] [place], [address] Urea nitrogen [Mass/Vol] 15 mg/dL Normal 4-19 [facility] Comment on above: Performed By: #### L 300.3900, L100.0100, L300.4310, L500.2500 ####[facility] [address] [place], [address] Basophil percentageOrdered B y: Carlos A Velez on 12-31-2024 Basophils/100 WBC (Bld) 0.4 % 0-1 [facility] CBC W/Diff, Automatedon 12-21 Absolute Lymph 1.16 X10 3/uL Normal 0.83-4.51 [facility] Comment on above: Performed By: #### L 300.3900, L100.0100, L300.4310, L500.2500 #### [facility] [address] [place], [address] Absolute Neut 9.1 X10 3/uL High 2.0-7.7 [facility] Comment on above: Performed By: #### L 300.3900, L100.0100, L300.4310, L500.2500 #### [facility] [address] [place], [address] Basophils/100 WBC (Bld) 0.4 % Normal 0-1 [facility] Comment on above: Performed By: #### L 300.3900, L100.0100, L300.4310, L500.2500 #### [facility] [address] [place], [address] Eosinophils/100 WBC (Bld) 0.0 % Normal 0-5 [facility] Comment on above: Performed By: #### L 300.3900, L100.0100, L300.4310, L500.2500 #### [facility] [address] [place], [address] Erythrocyte distribution width (RBC) [Ratio] 13.3 % Normal 11.6-14.6 [facility] Comment on above: Performed By: #### L 300.3900, L100.0100, L300.4310, L500.2500 #### [facility] [address] [place], [address] Hematocrit (Bld) [Volume fraction] 38.7 % Normal 37-47 [facility] Comment on above: Performed By: #### L 300.3900, L100.0100, L300.4310, L500.2500 #### [facility] [address] [place], [address] Hemoglobin (Bld) [Mass/Vol] 12.8 g/dL Normal 12.0-15.0 [facility] Comment on above: Performed By: #### L 300.3900, L100.0100, L300.4310, L500.2500 #### [facility] [address] [place], [address] IG% 0.400 Normal 0.0-0.9 [facility] Comment on above: Result Comment: IG% - Immature Granulocytes (promyelocytes, myelocytes and metamyelocytes) > 1% indicates that a LEFT SHIFT is Present. Performed By: #### L 300.3900, L100.0100, L300.4310, L500.2500 #### [facility] [address] [place], [address] Lymphocytes/100 WBC (Bld) 10.1 % Low 19-41 [facility] Comment on above: Performed By: #### L 300.3900, L100.0100, L300.4310, L500.2500 #### [facility] [address] [place], [address] MCH (RBC) [Entitic mass] 29.0 pg Normal 27.0-32.0 [facility] Comment on above: Performed By: #### L 300.3900, L100.0100, L300.4310, L500.2500 #### [facility] [address] [place], [address] MCHC (RBC) [Mass/Vol] 33.1 g/dL Normal 32-36 [facility] Comment on above: Performed By: #### L 300.3900, L100.0100, L300.4310, L500.2500 #### [facility] [address] [place], [address] MCV (RBC) [Entitic vol] 87.6 fL Normal 81-99 [facility] Comment on above: Performed By: #### L 300.3900, L100.0100, L300.4310, L500.2500 #### [facility] [address] [place], [address] Monocytes/100 WBC (Bld) 9.4 % Normal 0-10 [facility] Comment on above: Performed By: #### L 300.3900, L100.0100, L300.4310, L500.2500 #### [facility] [address] [place], [address] Neutrophils/100 WBC (Bld) 79.7 % High 47-70 [facility] Comment on above: Performed By: #### L 300.3900, L100.0100, L300.4310, L500.2500 #### [facility] [address] [place], [address] Nucleated RBC (Bld) [#/Vol] 0 10*3/uL Normal 0-5 [facility] Comment on above: Performed By: #### L 300.3900, L100.0100, L300.4310, L500.2500 #### [facility] [address] [place], [address] Platelet mean volume (Bld) [Entitic vol] 11.4 fL Normal 6.2-12.0 [facility] Comment on above: Performed By: #### L 300.3900, L100.0100, L300.4310, L500.2500 #### [facility] [address] [place], [address] Platelets (Bld) [#/Vol] 260 10*3/uL Normal 150-450 [facility] Comment on above: Performed By: #### L 300.3900, L100.0100, L300.4310, L500.2500 #### [facility] [address] [place], [address] RBC (Bld) [#/Vol] 4.42 10*6/uL Normal 4.2-5.4 [facility] Comment on above: Performed By: #### L 300.3900, L100.0100, L300.4310, L500.2500 #### [facility] [address] [place], [address] RDW SD 42.2 fl Normal 35.1-43.9 [facility] Comment on above: Performed By: #### L 300.3900, L100.0100, L300.4310, L500.2500 #### [facility] [address] [place], [place], [address] WBC (Bld) [#/Vol] 11.5 10*3/uL High 4.4-11.0 [facility] Comment on above: Performed By: #### L 300.3900, L100.0100, L300.4310, L500.2500 #### [facility] [address] [place], [address] CNOVon 12-31-2024 CNOV Office Visit (FAMPWS ) ----- CHANTELLSUSAN Vines ([id number]) 1960 F Date Time Provider Department 12/31/24 3:00 PM [facility] During your visit today, we recorded the following information about you: Temperature Pulse Blood pressure 99.5 degrees 76/minute 120/80 Leila Mansfield, [employer] 12/31/2024 3:28 PM Signed This is a 64 year old female who presents today with: No chief complaint on file. HISTORY OF PRESENT ILLNESS: Susan Bobby is a 64 year old female. No chief complaint on file. ER follow up for abd/ back pain Left flank pain that wraps around to left mid abdomen Low grade temp Writhing in pain, crying Hx of back off and on gouk-foz-kyime. Slept a little last night, no more nausea or vomiting- went to [facility] on a cruise Vomited on the cruise Went to ER in [place] Monday got home and went to ER in [facility]- they gave her Zofran and Morphine X 2 Presents today unable to sit in chair, writhing in pain. Left flank pain 10/10 Dry heaves in office CTA showed hiatal hernia PAST MEDICAL HISTORY: PAST MEDICAL HISTORY Diagnosis Date Acute gastritis DM (diabetes mellitus) (HCC) GERD (gastroesophageal reflux disease) Hiatal hernia HLD (hyperlipidemia) HTN (hypertension) PAST SURGICAL HISTORY Procedure Laterality Date CHOLECYSTECTOMY N/A done when she was 23 COLONOSCOPY 01/13/2023 EGD W/O [facility] SPEC VARICIES INJ unsure of year EGD W/O [facility] SPEC VARICIES INJ 05/19/2022 TOTAL ABDOMINAL HYSTERECT W/WO RMVL TUBE OVARY N/A 10/2017 for abnormal bleeding. no cancer VAGINAL HYSTERECTOMY ALLERGIES Patient has no known allergies. MEDICATIONS Current Outpatient Medications Medication Sig pantoprazole DR (PROTONIX) 40 mg tablet Take 1 tablet by mouth once daily. benazepril (LOTENSIN) 20 mg tablet Take 1 tablet by mouth once daily. hydroCHLOROthiazide 25 mg tablet Take 1 tablet by mouth once daily. metFORMIN (GLUCOPHAGE) 500 mg tablet Take 1 tablet by mouth daily with breakfast. rosuvastatin (CRESTOR) 5 mg tablet Take 1 tablet by mouth once daily. calcium phosphate dibas/vit D3 (VITAMIN D, WITH CALCIUM, ORAL) Take by mouth. multivitamin (DAILY VITAMIN ORAL) Take by mouth once daily. blood sugar diagnostic (BLOOD GLUCOSE TEST) test strip Test blood sugar(s) 1 times daily. Dx: Type 2 DM - Controlled E11.9 Insulin: No No current facility-administered medications for this visit. FAMILY HISTORY Problem Relation Age of Onset Hypertension Mother Dementia Father Social History Tobacco Use Smoking status: Never Smokeless tobacco: Never Vaping Use Vaping status: Never Used Substance Use Topics Alcohol use: No Drug use: No EXAM: Temp 37.5 ?C (99.5 ?F) 120/80, 76, 22 PHYSICAL EXAM: Physical Exam Vitals reviewed. Constitutional: Comments: Writhing in pain Cardiovascular: Rate and Rhythm: Normal rate and regular rhythm. Pulses: Normal pulses. Heart sounds: Normal heart sounds. Pulmonary: Effort: Pulmonary effort is normal. Comments: Diminished d/t poor respiratory effort Musculoskeletal: Comments: Left flank pain- negative CVA tenderness Rolling all over the bed Skin: General: Skin is dry. Neurological: Mental Status: She is alert and oriented to person, place, and time. LABS: ASSESSMENT/PLAN: 1. Acute left flank pain - ICD9: 789.09, 338.19, ICD10: R10.9 - defer to ER for intractable pain - report called to Dr. Patel _ with her and will meet her in the ER Discussed treatment plan and patient voices understanding. Patient's questions answered appropriately. Medications and potential side effects were discussed and patient voices understanding. Return to the office as scheduled or as needed for worsening/no improvement. KADEEM Delgado Jacqueline A, APRN.CNP 12/31/2024 3:22 PM Signed 1) Defer to ER Kyle Walker MA 12/31/2024 3:32 PM Signed [facility] and Remote Sites Emergency Response Form. NOT TO BE USED AT [facility] Complete this report when the Emergency Medical Response is activated (911 calls/EmergencyTransport to the ED) or when a Code Sheet is utilized in the care of a patient (i.e., ASC) Date of the Event:12/31/24 Time of the Event:3:09 pm Was emergency response activated? (Local EMS/Emergency Department) YES Location of the Incident: [facility] ([facility]) (Must provide Value) Reason/Chief Complaint for Emergency Call (Check all that apply): Pain.Locationleft flank Typeintractable Durration3 days (Must provide Value) CPR Initiated-Chest Compressions and/or Rescue Breathing Provided: NO (Must provide value) Facility AED Used-Automatic External Defibrillator: NO (Must provide value) EMS AED Used-Automatic External Defibrillator: NO (Must provide value) Prior t (more content not included)... Normal [facility] 12-31-2024 FREEMAN Telephone (FAMPWS) ----- SUSAN BOBBY ([id number]) 1960 F Date Time Provider Department 12/31/24 LEILA MANSFIELD During your visit today, we recorded the following information about you: Leila Mansfield, TODD.[employer] 12/31/2024 10:41 AM Signed Patient was seen at [facility] on December 30, 2024 for nausea and vomiting with 5 days of right flank pain. She vomited once after eating a burger. The pain worsened when she got off a cruise in [place] and was seen in the emergency room. Reports having a CT scan negative for kidney stones. She was given Toradol and felt better and flew home to [facility] arriving this morning. She is having severe right flank pain with nausea and vomiting. No chest pain or shortness of breath. No fever or chills. No urinary symptoms. She is afebrile but blood pressure 129/103, 158/82 Heart rate 84, 71 Oxygen saturation 100% to 99%. Patient presents with generalized back pain. Occurred earlier this week and had a workup at another emergency room [id number]. Symptoms flared again today. Appears uncomfortable is rolling around the bed. Vital signs are stable. Normal cardiopulmonary exam. Abdomen soft nontender. No reproducible pain in the back. is massaging her back which seems to help slightly. Upper and lower extremities neurovascularly intact. Pulses symmetrical. CT scan to rule out kidney stones earlier in the week. Ordered CTA to rule out vascular process. CTA was unremarkable. Moderate-sized hiatal hernia but this does not correlate with any of her symptoms. Glucose 122, CO2 20, gap 17. Electrolytes and renal function normal. IV fluids and Toradol, IV morphine x 2, p.o. Valium. Seems to be resting comfortably in the hospital. WBC 8.5, hemoglobin 12.8, hematocrit 38.5, platelet count 214 Neutrophils elevated 86.7, lymphocytes low at 7.2 Sodium 143, potassium 3.6, BUN 13, creatinine 1.2, glucose 122 Calcium 9.5 Urinalysis is normal with 10 hemoglobin and 15 ketones. Protein is high at 15 CTA abdomen and pelvis showed patent a aortoiliac visceral arteries. And moderate size hiatal hernia Patient was given a prescriptions for Valium 5 mg twice daily as needed for muscle spasm [place] 1 tablet every 6 hours for pain for 3 days 10 tablets Zofran 4 mg every 6 hours for needed nausea 10 tablets given Allergies As of Date: 12/31/2024 (No Known Allergies) Date Reviewed: 09/23/2024 Reviewed by: Tiffanie Burks MA - Fully Assessed Prescriptions as of 12/31/2024 - pantoprazole DR (PROTONIX) 40 mg tablet Take 1 tablet by mouth once daily. - benazepril (LOTENSIN) 20 mg tablet Take 1 tablet by mouth once daily. - hydroCHLOROthiazide 25 mg tablet Take 1 tablet by mouth once daily. - metFORMIN (GLUCOPHAGE) 500 mg tablet Take 1 tablet by mouth daily with breakfast. - rosuvastatin (CRESTOR) 5 mg tablet Take 1 tablet by mouth once daily. - calcium phosphate dibas/vit D3 (VITAMIN D, WITH CALCIUM, ORAL) Take by mouth. - multivitamin (DAILY VITAMIN ORAL) Take by mouth once daily. - blood sugar diagnostic (BLOOD GLUCOSE TEST) test strip Test blood sugar(s) 1 times daily. Dx: Type 2 DM - Controlled E11.9 Insulin: No Problem List As Of Date 12/31/2024 Noted Resolved Hypertension, essential [I10] 12/20/2018 GERD without esophagitis [K21.9] 12/20/2018 Hyperlipidemia, mixed [E78.2] 12/20/2018 CKD (chronic kidney disease) stage 3, GFR 30-59*05/13/2022 Obesity, Class I, BMI 30-34.9 [E66.811] 05/19/2022 Controlled type 2 diabetes mellitus without com*05/10/2023 Abnormal glucose tolerance test (GTT) [R73.09] 11/17/2023 03/22/2024 Diagnosed: 11/17/2023 History of tubal ligation [Z98.51] 11/17/2023 Diagnosed: 11/17/2023 Iron deficiency [E61.1] 11/17/2023 Diagnosed: 11/17/2023 Menorrhagia [N92.0] 11/17/2023 Diagnosed: 11/17/2023 Non-smoker [Z78.9] 11/17/2023 03/22/2024 Diagnosed: 11/17/2023 Onychomycosis [B35.1] 11/17/2023 Diagnosed: 11/17/2023 Osteopenia [M85.80] 11/17/2023 Diagnosed: 11/17/2023 Postmenopausal bleeding [N95.0] 11/17/2023 Diagnosed: 11/17/2023 Shortness of breath at rest [R06.02] 11/17/2023 03/22/2024 Diagnosed: 11/17/2023 Sleep disorder [G47.9] 11/17/2023 Diagnosed: 11/17/2023 Stress incontinence in female [N39.3] 11/17/2023 Diagnosed: 11/17/2023 Suprapubic pain [R10.2] 11/17/2023 03/22/2024 Diagnosed: 11/17/2023 Swelling of extremity [M79.89] 11/17/2023 03/22/2024 Diagnosed: 11/17/2023 Gastritis without bleeding [K29.70] 08/07/2024 Hiatal hernia [K44.9] 08/07/2024 Encounter Status:Closed by LEILA MANSFIELD on 12/31/24 [facility] Telephone (FMIUNI) ----- SUSAN BOBBY ([id number]) 1960 F Date Time Provider Department 12/31/24 RASHMI AVILA FMIUNI During your visit today, we recorded the following information about you: Rashmi Avila DO 12/31/2024 8:47 PM Signed Received a page from the [place] ED regarding update on patient's plan of care. She was referred to the [place] ER for intractable left flank pain that radiated to mid abdomen. Per the ED physician, this was her second ED visit over the last week and previously seen in [facility]. He said they did a CTA spine scan which was negative for spinal infarct; other labs reportedly negative. He says they considered admitting her for intractable pain, but she responded well to gabapentin, opiod, valium. Did not do MRI since she was no longer in pain. Recommended outpatient follow-up with PCP. If presents again, could admit for intractable pain although didn't seem necessary at that time. I said I would relay message to PCP. DO Helena Wong Tara, LPN 01/01/2025 11:14 AM Signed ER reports from [facility] are now also scanned into chart. Attempted to reach patient and left message to call and speak with nurse so we can set up a visit for her. Dr Bullard has a spot on Monday that I have tried to hold for her at 2:20 if it is still available. Radha Jiang LPN 01/01/2025 1:36 PM Signed Patient returned call and went over notes below, scheduled for appt on Monday at 220 pm with PCP. Allergies As of Date: 12/31/2024 (No Known Allergies) Date Reviewed: 12/31/2024 Reviewed by: Leila Mansfield APRN.[employer] - Fully Assessed Reason for Visit: Appointment [186] Prescriptions as of 01/01/2025 - pantoprazole DR (PROTONIX) 40 mg tablet Take 1 tablet by mouth once daily. - benazepril (LOTENSIN) 20 mg tablet Take 1 tablet by mouth once daily. - hydroCHLOROthiazide 25 mg tablet Take 1 tablet by mouth once daily. - metFORMIN (GLUCOPHAGE) 500 mg tablet Take 1 tablet by mouth daily with breakfast. - rosuvastatin (CRESTOR) 5 mg tablet Take 1 tablet by mouth once daily. - calcium phosphate dibas/vit D3 (VITAMIN D, WITH CALCIUM, ORAL) Take by mouth. - multivitamin (DAILY VITAMIN ORAL) Take by mouth once daily. - blood sugar diagnostic (BLOOD GLUCOSE TEST) test strip Test blood sugar(s) 1 times daily. Dx: Type 2 DM - Controlled E11.9 Insulin: No Problem List As Of Date 12/31/2024 Noted Resolved Hypertension, essential [I10] 12/20/2018 GERD without esophagitis [K21.9] 12/20/2018 Hyperlipidemia, mixed [E78.2] 12/20/2018 CKD (chronic kidney disease) stage 3, GFR 30-59*05/13/2022 Obesity, Class I, BMI 30-34.9 [E66.811] 05/19/2022 Controlled type 2 diabetes mellitus without com*05/10/2023 Abnormal glucose tolerance test (GTT) [R73.09] 11/17/2023 03/22/2024 Diagnosed: 11/17/2023 History of tubal ligation [Z98.51] 11/17/2023 Diagnosed: 11/17/2023 Iron deficiency [E61.1] 11/17/2023 Diagnosed: 11/17/2023 Menorrhagia [N92.0] 11/17/2023 Diagnosed: 11/17/2023 Non-smoker [Z78.9] 11/17/2023 03/22/2024 Diagnosed: 11/17/2023 Onychomycosis [B35.1] 11/17/2023 Diagnosed: 11/17/2023 Osteopenia [M85.80] 11/17/2023 Diagnosed: 11/17/2023 Postmenopausal bleeding [N95.0] 11/17/2023 Diagnosed: 11/17/2023 Shortness of breath at rest [R06.02] 11/17/2023 03/22/2024 Diagnosed: 11/17/2023 Sleep disorder [G47.9] 11/17/2023 Diagnosed: 11/17/2023 Stress incontinence in female [N39.3] 11/17/2023 Diagnosed: 11/17/2023 Suprapubic pain [R10.2] 11/17/2023 03/22/2024 Diagnosed: 11/17/2023 Swelling of extremity [M79.89] 11/17/2023 03/22/2024 Diagnosed: 11/17/2023 Gastritis without bleeding [K29.70] 08/07/2024 Hiatal hernia [K44.9] 08/07/2024 Encounter Status:Closed by AMY MALIK on 01/01/25 Normal [facility] CTA Chest W/WO Contraston CTA Chest W/WO Contrast [facility] [address] [place], [place] [address] CTA Chest W/WO Contrast MR#: [id number] Acct: [id number] Name: SUSAN BOBBY Rep #: [id number] : 1960 F 64 From: Ricardo Tatum PCP: Dr. Jose Bullard MD Status: REG ER Study: CTA Chest W/WO Contrast Date of Exam: 12/31/24 Exam# [id number] Ordering Dr: Carlos A Velez DO PROCEDURE: CTA chest REASON FOR EXAM: Pain TECHNIQUE: Multiple contiguous axial images of the chest were obtained after the administration of intravenous contrast. Two-dimensional and three-dimensional MIP coronal and sagittal reformatted images were reconstructed. Low-dose imaging technique was utilized. COMPARISON: None. FINDINGS: Heart size is within normal limits. No significant pericardial effusion or coronary artery calcifications. Normal caliber thoracic aorta. Normal caliber pulmonary arteries without filling defects. No suspicious adenopathy. Small hiatal hernia. Possible punctate bilateral renal calculi versus contrast. Superficial soft tissues are within normal limits. Central airways are patent. Mild bibasilar atelectasis. No patchy infiltrates, pleural effusion or pneumothorax. 3 mm subpleural nodule in the anterior right upper lobe. No pulmonary mass. No acute osseous abnormality. Mild degenerative changes of the spine. CT/CTA Chest W/WO Contrast IMPRESSION: 1. No acute process. 2. Punctate subpleural nodule in the right upper lobe measuring 3 mm. [address] follow-up can be performed if the patient has clinical risk factors per Fleischner criteria. One or more dose reduction techniques were used (e.g., Automated exposure control, adjustment of the mA and/or kV according to patient size, use of iterative reconstruction technique). Reading Location: [facility] CC: Dr. Carlos A Velez DO; Dr. Jose Bullard MD Physical Testing Supervisor: Signed Normal [facility] Carbon dioxide, total [Moles /volume] in Central venous bloodOrdered By: Carlos A Velez on 12-31-2024 CO2 [Moles/Vol] 23.7 mmol/L 21.0-32.0 [facility] Chloride assayOrdered By: Hal Velez on 12-31-2024 Chloride [Moles/Vol] 109 mmol/L High 98-108 [facility] Emergency Department Summary on 12-31-2024 Emergency Department Summary [facility] Medical Records Department [address] [place] [address] Emergency Department Summary 12/31/24 MR#: [id number] Acct: [id number] Name: SUSAN BOBBY Rep #: [id number] : 1960 64 From: Carlos A Davis PCP: Dr. Jose Bullard MD Status:DEP ER Location: ED HPI History of Present Illness Chief Complaint: Flank Pain Informant: patient and spouse/S.O. Narrative Narrative: Patient sent in from PCP office for reevaluation. Note was seen yesterday in the ED. Patient returned from a cruise this past Monday. Started having some flank pain she went to [place] she was seen in the ER there. Kidney stone rule out was negative. She returned yesterday for increasing pain. She was worked up had a CT angiogram abdomen pelvis that was negative. Symptoms were improving with pain medicines and muscle relaxers. However per spouse symptoms worsened this morning. Went to PCP office. Due to discomfort sent here for reevaluation. Last dose of Valium 2 PM. Hypertension diabetes hyperlipidemia. Denies history of PE or DVT. States stational dyspnea. No upper back pain. No chest pains. Denies any pain down her legs. Per spouse she is on and off back pain since he normal for 40 years. Unclear if ever had an MRI. Prior similar symptoms: Yes PFSH PFSH Home Medications ???Medication ???Instructions ???Recorded ???Last Taken ???Type metformin 500 mg tablet 500 mg PO DAILY 04/16/24 12/30/24 History rosuvastatin 5 mg tablet 5 mg PO DAILY 04/16/24 12/30/24 Hi story diazepam 5 mg tablet (Valium) 5 mg PO BID PRN muscle spasm 5 08/16 Unknown Rx days #10 tabs benazepril 20 mg tablet 20 mg PO DAILY 12/31/24 12/30/24 H istory gabapentin 300 mg capsule 300 mg PO QHS #30 caps 12/31/24 Un known Rx hydrochlorothiazide 25 mg tablet 25 mg PO DAILY 12/31/24 12/30/24 H istory hydrocodone-acetaminophen 5-325mg 1 tab PO Q6H PRN Pain 12/31/24 Un known History 5mg-325mg ondansetron 4 mg disintegrating 4 mg PO Q6H PRN Nausea 12/31/24 Un known History tablet oxycodone-acetaminophen 5 mg-325 1 tab PO Q6H PRN PRN Pain 3 days 0 12/31/24 Unknown Rx mg tablet #12 TABLETS pantoprazole 40 mg tablet,delayed 40 mg PO DAILY 12/31/24 12/30/24 History release Allergy/AdvReac Type Severity Reaction Status Date / Time No Known Allergies Allergy Verified 12/31/24 15:31 Surgical History Hx of cholecystectomy Social History Smoking Status: Never smoker ROS ROS ED Constitutional Constitutional ED: Denies chills, fever(s) or sweats ENT ENT ED: Denies sore throat Cardiovascular Cardiovascular: Denies chest pain, leg edema, palpitations or racing heartbeat Respiratory/Chest Respiratory/Chest: Denies cough, dyspnea or dyspnea on exertion Gastrointestinal Gastrointestinal: Reports nausea and vomiting; Denies abdominal pain or diarrhea Genitourinary Genitourinary ED: Denies dysuria, hematuria or urinary frequency Musculoskeletal Musculoskeletal: Reports back pain; Denies extremity pain or neck pain Integumentary Denies rash or wounds Neurologic Neurologic: Denies headache(s), paresthesias or weakness EXAM Physical Exam Const Vital Signs: 12/31/24 15:31 12/31/24 17:30 12/31/24 17:45 Temperature 98.2 F Temperature Source Oral Pulse Rate 69 45 L 51 L Respiratory Rate 14 17 18 Blood Pressure 137/118 H 106/50 L 96/58 L Blood Pressure Mean 124 65 71 Pulse Ox 97 94 100 Oxygen Delivery Method Room Air 12/31/24 18:00 12/31/24 18:01 12/31/24 18:15 Temperature Temperature Source Pulse Rate 56 L 52 L Respiratory Rate 18 20 H Blood Pressure 112/71 99/64 Blood Pressure Mean 85 75 Pulse Ox 97 98 Oxygen Delivery Method Room Air 12/31/24 18:30 12/31/24 18:45 12/31/24 19:00 Temperature Temperature Source Pulse Rate 52 L 50 L 54 L Respiratory Rate 17 16 14 Blood Pressure 98/62 102/60 104/60 Blood Pressure Mean 74 73 74 Pulse Ox 98 96 97 Oxygen Delivery Method Room Air Room Air 12/31/24 19:15 12/31/24 19:30 12/31/24 19:31 Temperature Temperature Source Pulse Rate 55 L 51 L Respiratory Rate 16 17 Blood Pressure 105/59 L 105/57 L Blood Pressure Mean 73 72 Pulse Ox 98 97 Oxygen Delivery Method 12/31/24 19:45 12/31/24 20:00 12/31/24 20:15 Temperature 98.1 F Temperature Source Oral Pulse Rate 53 L 53 L 50 L Respiratory Rate 17 14 15 Blood Pressure 104/63 112/59 L 103/57 L Blood Pressure Mean 77 76 72 Pulse Ox 97 99 99 Oxygen Delivery Method Room Air 12/31/24 20:30 12/31/24 20:45 12/31/24 21:00 Temperature Temperature Source Pulse Rate 49 L 48 L 68 (more content not included)... Normal [facility] Eosinophil percentageOrdered By: Carlos A Velez on 12-31-2024 Eosinophils/100 WBC (Bld) 0.0 % 0-5 [facility] Erythrocyte distribution wid th ratioOrdered By: Carlos A Velez on 12-31-2024 Erythrocyte distribution width (RBC) [Ratio] 13.3 % 11.6-14.6 [facility] Erythrocyte distribution wid th standard deviationOrdered By: Carlos A Velez on 12-31-2024 Erythrocyte distribution width (RBC) [Entitic vol] 42.2 fL 35.1-43.9 [facility] Estimation of creatinine mac aranceOrdered By: Carlos A Velez on 12-31-2024 Estimated Creatinine Clearance Calc 46.97 ml/min Low 50-250 [facility] GFR/1.73 sq M.predicted jalen g non-blacks MDRD (S/P/Bld) [Vol rate/Area]Ordered By: Carlos A Velez on 12-31-2024 Estimated GFR (MDRD) Non-Af Amer 53 Low >60 [facility] Comment on above: mL/min/1.73m2 CKD-EP I Creatinine Equation (2020) Hematocrit Auto (Bld) [Volum e fraction]Ordered By: Carlos A Velez on 12-31-2024 Hematocrit (Bld) [Volume fraction] 38.7 % 37-47 [facility] Hemoglobin measurementOrdere d By: Carlos A Velez on 12-31-2024 Hemoglobin (Bld) [Mass/Vol] 12.8 g/dL 12.0-15.0 [facility] Immature granulocytes/100 WB C Auto (Bld)Ordered By: Carlos A Velez on 12-31-2024 Immature granulocytes/100 WBC (Bld) 0.400 % 0.0-0.9 [facility] Comment on above: IG% - Immature Granu locytes (promyelocytes, myelocytes and metamyelocytes) > 1% indicates that a LEFT SHIFT is Present. International normalized rat io (INR) calculationOrdered By: Carlos A Velez on 12-31-2024 INR Coag (Bld) [Relative time] 1.1 {INR} [facility] L501.4021on 12-31-2024 Trop T High Sen 16 ng/L High <=14 [facility] Comment on above: Performed By: #### L 501.4021 #### [facility] [address] [place], [address] Lymphocytes Auto (Unsp spec) [#/Vol]Ordered By: Carlos A Velez on 12-31-2024 Lymphocytes (Bld) [#/Vol] 1.16 10*3/uL 0.83-4.51 [facility] Lymphocytes/100 WBC Auto (Un sp spec)Ordered By: Carlos A Velez on 12-31-2024 Lymphocytes/100 WBC (Bld) 10.1 % Low 19-41 [facility] MCV (mean corpuscular volume ) determinationOrdered By: Carlos A Velez on 12-31-2024 MCV (RBC) [Entitic vol] 87.6 fL 81-99 [facility] Mean corpuscular hemoglobin (MCH) determinationOrdered By: Carlos A Velez on 12-31-2024 MCH (RBC) [Entitic mass] 29.0 pg 27.0-32.0 [facility] Mean corpuscular hemoglobin concentration (MCHC) determinationOrdered By: Carlos A Velez on 12-31-2024 MCHC (RBC) [Mass/Vol] 33.1 g/dL 32-36 [facility] Mean platelet volume determi nationOrdered By: Carlos A Velez on 12-31-2024 Platelet mean volume (Bld) [Entitic vol] 11.4 fL 6.2-12.0 [facility] Monocyte percentageOrdered B y: Carlos A Velez on 12-31-2024 Monocytes/100 WBC (Bld) 9.4 % 0-10 [facility] Neutrophil percentageOrdered By: Carlos A Velez on 12-31-2024 Neutrophils/100 WBC (Bld) 79.7 % High 47-70 [facility] No Panel InformationOrdered By: Carlos A Velez on 12-31-2024 Troponin T High Sensitivity 16 ng/L High <14 [facility] Nucleated red blood cell per centageOrdered By: Carlos A Velez on 12-31-2024 Nucleated RBC/100 WBC (Bld) [Ratio] 0 % 0-5 [facility] Partial Thromboplast Timeon 12-31-2024 aPTT Coag (Bld) [Time] 22.7 s Low 24.1-36.2 [facility] Comment on above: Performed By: #### L 300.3900, L100.0100, L300.4310, L500.2500 #### [facility] [address] [place], [place], [id number] Platelet countOrdered By: Hal Velez on 12-31-2024 Platelets (Bld) [#/Vol] 260 10*3/uL 150-450 [facility] Potassium (Unsp spec) [Mass/ Vol]Ordered By: Carlos A Velez on 12-31-2024 Potassium [Moles/Vol] 3.5 mmol/L 3.3-5.1 [facility] Prothrombin Time w/INRon INR Coag (PPP) [Relative time] 1.1 {INR} Normal [facility] Comment on above: Performed By: #### L 300.3900, L100.0100, L300.4310, L500.2500 #### [facility] [address] [place], [address] PT Coag (PPP) [Time] 14.8 s Normal 11.7-14.9 [facility] Comment on above: Performed By: #### L 300.3900, L100.0100, L300.4310, L500.2500 #### [facility] [address] [place], [address] Prothrombin timeOrdered By: Carlos A Velez on 12-31-2024 PT Coag (PPP) [Time] 14.8 s 11.7-14.9 [facility] RBC Auto (Bld) [#/Vol]Ordere d By: Carlos A Velez on 12-31-2024 RBC (Bld) [#/Vol] 4.42 10*6/uL 4.2-5.4 [facility] Serum creatinine measurement (mass/volume)Ordered By: Carlos A Velez on 12-31-2024 Creatinine [Mass/Vol] 1.17 mg/dL 0.70-1.20 [facility] Serum glucose measurement (m ass/volume)Ordered By: Carlos A Velez on 12-31-2024 Glucose [Mass/Vol] 96 mg/dL 70-99 [facility] Serum or plasma calcium mike urement (mass/volume)Ordered By: Carlos A Velez on 12-31-2024 Calcium [Mass/Vol] 8.9 mg/dL 7.6-11.0 [facility] Serum or plasma urea nitroge n measurement (mass/volume)Ordered By: Carlos A Velez on 12-31-2024 Urea nitrogen [Mass/Vol] 15 mg/dL 4-19 [facility] Sodium levelOrdered By: Carlos A Velez on 12-31-2024 Sodium [Moles/Vol] 144 mmol/L 133-145 [facility] White blood cell (WBC) count Ordered By: Carlos A Velez on 12-31-2024 WBC (Bld) [#/Vol] 11.5 10*3/uL High 4.4-11.0 [facility] aPTT Coag (PPP) [Time]Ordere d By: Carlos A Velez on 12-31-2024 aPTT Coag (Bld) [Time] 22.7 s Low 24.1-36.2 [facility] 12 Lead EKGon 12-30-2024 12 Lead EKG [facility] [address] [place] [address] 12 Lead EKG 12/30/24 1758 MR#: [id number] Acct: [id number] Name: SUSAN BOBBY Rep #: [id number] : 1960 64 From: Tito Walker MD Attending Dr: Status: DEP ER Ordering Dr: Kyle Oates Date: 12/30/24 Location: ED Sex: F AA Admitted: Test Reason : NAUSEA Blood Pressure : */* mmHG Vent. Rate : 96 BPM Atrial Rate : 96 BPM P-R Int : 168 ms QRS Dur : 98 ms QT Int : 416 ms P-R-T Axes : 52 45 50 degrees QTcB Int : 525 ms Normal sinus rhythm Nonspecific ST and T wave abnormality Prolonged QT Abnormal ECG Confirmed by Tito Walker ([id number]), editorial director GAIL WAYNE ([id number]) on 12/31/2024 10:58:01 AM Referred By: Confirmed By: Tito Walker 12/31/24 1058 Date Tito Walker MD CC: Dr. Carlos A Velez DO; Dr. Jose Bullard MD; YVAN De La Cruz Signed Normal [facility] Absolute neutrophil countOrd ered By: Kyle Oates on 12-30-2024 Neutrophils (Bld) [#/Vol] 7.4 10*3/uL 2.0-7.7 [facility] Anion gap in Serum or Plasma Ordered By: Kyle Oates on 12-30-2024 Anion gap [Moles/Vol] 17 mmol/L High 03-06 [facility] BUN/creatinine ratioOrdered By: Kyle Oates on 12-30-2024 Urea nitrogen/Creatinine [Mass ratio] 10.9 mg/mg - [facility] Basic Metabolic Profile (BMP )on 12-30-2024 BUN/CRE 10.9 RATIO Normal 08-11 [facility] Comment on above: Performed By: #### L 100.0100, L500.2500 ####[facility] [address] [place], [address] Calcium [Mass/Vol] 9.5 mg/dL Normal 7.6-11.0 [facility] Comment on above: Performed By: #### L 100.0100, L500.2500 ####[facility] [address] [place], [address] Chloride [Moles/Vol] 107 mmol/L Normal 98-108 [facility] Comment on above: Performed By: #### L 100.0100, L500.2500 ####[facility] [address] [place], [address] CO2 [Moles/Vol] 20.0 mmol/L Low 21.0-32.0 [facility] Comment on above: Performed By: #### L 100.0100, L500.2500 ####[facility] [address] [place], [address] Creatinine [Mass/Vol] 1.20 mg/dL Normal 0.70-1.20 [facility] Comment on above: Performed By: #### L 100.0100, L500.2500 ####[facility] [address] [place], [address] GAP 17 High 5-15 [facility] Comment on above: Performed By: #### L 100.0100, L500.2500 ####[facility] [address] [place], [address] GFR/1.73 sq M.predicted among non-blacks MDRD (S/P/Bld) [Vol rate/Area] 51 mL/min/{1.73_m2} Low >60 [facility] Comment on above: Result Comment: mL/m in/1.73m2 CKD-EPI Creatinine Equation (2020) Performed By: #### L 100.0100, L500.2500 ####[facility] [address] [place], [address] Glucose [Mass/Vol] 122 mg/dL High 70-99 [facility] Comment on above: Performed By: #### L 100.0100, L500.2500 ####[facility] [address] [place], [address] Potassium [Moles/Vol] 3.6 mmol/L Normal 3.3-5.1 [facility] Comment on above: Result Comment: Hemo lysis present, Results??could be affected. ?? Performed By: #### L 100.0100, L500.2500 ####[facility] [address] [place], [address] Sodium [Moles/Vol] 143 mmol/L Normal 133-145 [facility] Comment on above: Performed By: #### L 100.0100, L500.2500 ####[facility] [address] [place], [address] Urea nitrogen [Mass/Vol] 13 mg/dL Normal 4-19 [facility] Comment on above: Performed By: #### L 100.0100, L500.2500 ####[facility] [address] [place], [address] Bilirubin Test strip Ql (U)O rdered By: Kyle Oates on 12-30-2024 Bilirubin Ql (U) Negative Negative [facility] CBC W/Diff, Automatedon 12-21 Absolute Lymph 0.61 X10 3/uL Low 0.83-4.51 [facility] Comment on above: Performed By: #### L 100.0100, L500.2500 ####[facility] [address] [place], [address] Absolute Neut 7.4 X10 3/uL Normal 2.0-7.7 [facility] Comment on above: Performed By: #### L 100.0100, L500.2500 ####[facility] [address] [place], [address] IG% 0.400 Normal 0.0-0.9 [facility] Comment on above: Result Comment: IG% - Immature Granulocytes (promyelocytes, myelocytes and metamyelocytes) > 1% indicates that a LEFT SHIFT is Present. Performed By: #### L 100.0100, L500.2500 ####[facility] [address] [place], [address] Nucleated RBC (Bld) [#/Vol] 0 10*3/uL Normal 0-5 [facility] Comment on above: Performed By: #### L 100.0100, L500.2500 ####[facility] [address] [place], [address] RDW SD 42.7 fl Normal 35.1-43.9 [facility] Comment on above: Performed By: #### L 100.0100, L500.2500 ####[facility] [address] [place], [address] CBC W/Diff, AutomatedOrdered By: Kyle Oates on 12-30-2024 Basophils/100 WBC (Bld) 0.6 % Normal 0-1 [facility] Comment on above: Performed By: #### L 100.0100, L500.2500 ####[facility] [address] [place], [address] Eosinophils/100 WBC (Bld) 0.1 % Normal 0-5 [facility] Comment on above: Performed By: #### L 100.0100, L500.2500 ####[facility] [address] [place], [address] Erythrocyte distribution width (RBC) [Ratio] 13.2 % Normal 11.6-14.6 [facility] Comment on above: Performed By: #### L 100.0100, L500.2500 ####[facility] [address] [place], [address] Hematocrit (Bld) [Volume fraction] 38.5 % Normal 37-47 [facility] Comment on above: Performed By: #### L 100.0100, L500.2500 ####[facility] [address] [place], [address] Hemoglobin (Bld) [Mass/Vol] 12.8 g/dL Normal 12.0-15.0 [facility] Comment on above: Performed By: #### L 100.0100, L500.2500 ####[facility] [address] [place], [address] Lymphocytes/100 WBC (Bld) 7.2 % Low 19-41 [facility] Comment on above: Performed By: #### L 100.0100, L500.2500 ####[facility] [address] [place], [address] MCH (RBC) [Entitic mass] 29.3 pg Normal 27.0-32.0 [facility] Comment on above: Performed By: #### L 100.0100, L500.2500 ####[facility] [address] [place], [address] MCHC (RBC) [Mass/Vol] 33.2 g/dL Normal 32-36 [facility] Comment on above: Performed By: #### L 100.0100, L500.2500 ####[facility] [address] [place], [address] MCV (RBC) [Entitic vol] 88.1 fL Normal 81-99 [facility] Comment on above: Performed By: #### L 100.0100, L500.2500 ####[facility] [address] [place], [address] Monocytes/100 WBC (Bld) 5.0 % Normal 0-10 [facility] Comment on above: Performed By: #### L 100.0100, L500.2500 ####[facility] [address] [place], [address] Neutrophils/100 WBC (Bld) 86.7 % High 47-70 [facility] Comment on above: Performed By: #### L 100.0100, L500.2500 ####[facility] [address] [place], [address] Platelet mean volume (Bld) [Entitic vol] 11.4 fL Normal 6.2-12.0 [facility] Comment on above: Performed By: #### L 100.0100, L500.2500 ####[facility] [address] [place], [address] Platelets (Bld) [#/Vol] 214 10*3/uL Normal 150-450 [facility] Comment on above: Performed By: #### L 100.0100, L500.2500 ####[facility] [address] [place], [address] RBC (Bld) [#/Vol] 4.37 10*6/uL Normal 4.2-5.4 [facility] Comment on above: Performed By: #### L 100.0100, L500.2500 ####[facility] [address] [place], [address] WBC (Bld) [#/Vol] 8.5 10*3/uL Normal 4.4-11.0 [facility] Comment on above: Performed By: #### L 100.0100, L500.2500 ####[facility] [address] [place], [address] CTA Abd/Pelvis W/WO Contrast on 12-30-2024 CTA Abd/Pelvis W/WO Contrast [facility] [address] [place] [address] CTA Abd/Pelvis W/WO Contrast MR#: [id number] Acct: [id number] Name: SUSAN BOBBY Rep #: [id number] : 1960 F 64 From: Amanda Cuenca nd, MD PCP: Dr. Jose Bullard MD Status: REG ER Study: CTA Abd/Pelvis W/WO Contrast Date of Exam: 08/16 Exam# [id number] Ordering Dr: Kyle Oates PROCEDURE: CTA ABD/PELVIS W/WO CONTRAST REASON FOR EXAM: 64-year-old female, ABDOMINAL AND FLANK PAIN, nausea and vomiting and back pain. TECHNIQUE: CTA imaging of the abdomen and pelvis with intravenous contrast. 3D reconstructions. IV CONTRAST: Isovue-300 COMPARISON: CT abdomen pelvis 06/04/2024. FINDINGS: Aorta: Abdominal aorta is normal in size. No significant atherosclerotic plaque. No evidence of aneurysm or dissection. Iliac Arteries: Iliac arteries are normal in size with no significant plaque or stenosis. Mild calcific plaque of the bilateral internal iliac arteries. The celiac artery, SMA and LENA are widely patent without focal stenosis. The single bilateral renal arteries are widely patent without focal stenosis or occlusion. Other Findings: The heart is normal in size. Bibasilar atelectasis. The liver is normal in size without arterially enhancing mass. Prior cholecystectomy. No hydronephrosis or nephrolithiasis. Prior hysterectomy. Moderate- sized hiatal hernia. The bowel loops are normal in caliber. Contrast material opacifies the proximal large bowel. No ascites or pneumoperitoneum. Normal appendix. Thoracolumbar spondylosis. CT/CTA Abd/Pelvis W/WO Contrast IMPRESSION: 1. Patent aortoiliac visceral arteries. 2. Moderate size hiatal hernia. One or more dose reduction techniques were used (e.g., Automated exposure control, adjustment of the mA and/or kV according to patient size, use of iterative reconstruction technique). Reading Location: [facility] CC: Dr. Jose Bullard MD; YVAN De La Cruz Physical Testing Supervisor: Signed Normal [facility] Carbon dioxide, total [Moles /volume] in Central venous bloodOrdered By: Kyle Oates on 12-30-2024 CO2 [Moles/Vol] 20.0 mmol/L Low 21.0-32.0 [facility] Chloride assayOrdered By: Guillermina Oates on 12-30-2024 Chloride [Moles/Vol] 107 mmol/L 98-108 [facility] Emergency Department Summary on 12-30-2024 Emergency Department Summary [facility] Records Department [address] [place] [address] Emergency Department Summary 12/30/24 MR#: [id number] Acct: [id number] Name: SUSAN BOBBY Rep #: [id number] : 1960 64 From: Carlos A Davis PCP: Dr. Jose Bullard MD Status:DEP ER Location: ED HPI History of Present Illness Chief Complaint: Nausea/Vomiting Narrative Narrative: 64-year-old female with PMH of HTN, HLD, DM2, GERD developed right flank pain 5 days ago on a cruise. She vomited once after eating a burger. The pain worsened when she got off the cruise yesterday in [place] and she was seen at an emergency room, reports having a CT scan negative for kidney stones. She was given Toradol and felt better and [place] this morning. This morning she is having severe right flank pain again with nausea and vomiting. No chest pain or shortness of breath. No fever or chills. No urinary symptoms or bowel changes. PFSH [facility] Home Medications ???Medication ???Instructions ???Recorded ???Last Taken ???Type metformin 500 mg tablet 500 mg PO 04/16/24 Unknown History rosuvastatin 5 mg tablet 5 mg PO DAILY 04/16/24 Unknown His tory hydrocodone-acetaminophen 5-325mg 1 tab PO Q6H PRN PRN Pain 3 days 06/04/24 Unknown Rx 5mg-325mg #10 TABLETS ondansetron 4 mg disintegrating 4 mg PO Q6H PRN PRN Nausea #10 tab s 06/04/24 Unknown Rx tablet diazepam 5 mg tablet (Valium) 5 mg PO BID PRN muscle spasm 5 08/16 Unknown Rx days #10 tabs Allergy/AdvReac Type Severity Reaction Status Date / Time No Known Allergies Allergy Verified 12/30/24 16:56 Surgical History Hx of cholecystectomy Social History Smoking Status: Never smoker ROS ROS ED ROS Narrative Constitutional: Negative for fever, chills, malaise. CVS: Negative for chest pain, syncope. Respiratory: Negative for shortness of breath, cough. GI: Positive for nausea, vomiting. Negative for abdominal pain, diarrhea, constipation, melena, hematochezia. : Negative for dysuria, hematuria or frequency. EXAM Physical Exam Narrative Exam Narrative: CONST: Patient rolling around in bed in pain. EYES: Normal inspection. NECK: Normal inspection. RESP: No respiratory distress, CTAB. CVS: Regular rate and rhythm, no murmur, no gallop. ABD: Soft and nontender, no guarding or rebound, nondistended. Back: Normal inspection, no reproducible tenderness of the spine or back. SKIN: Color normal, no rash, warm, dry, intact. EXTREMITIES: Normal appearance, no pedal edema. 2+ radial and DP pulses are symmetric. 5/5 strength, normal sensation. NEURO: Alert and answering questions appropriately. PSYCH: Normal affect. Const Vital Signs: 12/30/24 16:56 12/30/24 19:44 Temperature 97.2 F L 98.2 F Temperature Source Temporal Pulse Rate 84 71 Respiratory Rate 18 18 Blood Pressure 129/103 H 150/82 H Blood Pressure Mean 111 104 Pulse Ox 100 99 Oxygen Delivery Method Room Air Physical Exam Const Vital Signs: 12/30/24 16:56 12/30/24 19:44 Temperature 97.2 F L 98.2 F Temperature Source Temporal Pulse Rate 84 71 Respiratory Rate 18 18 Blood Pressure 129/103 H 150/82 H Blood Pressure Mean 111 104 Pulse Ox 100 99 Oxygen Delivery Method Room Air MDM MDM MDM Narrative Medical decision making narrative: History gathered from: Patient and Differential includes but not limited to kidney stone, dissection, intra-abdominal process, muscle spasm 64-year-old female presents with generalized back pain. It occurred earlier this week and she had workup at another emergency room out of state. Symptoms flared again today. She appears uncomfortable and is rolling around in bed. Vital signs are stable. She is a normal cardiopulmonary exam. Her abdomen is soft and nontender. She has no reproducible tenderness of her back. Her is massaging her back which seems to help slightly. Upper and lower extremities are neurovascularly intact. Symmetric pulses. She reports having a normal CT scan to rule out kidney stone earlier in the week so I ordered a CTA to rule out any vascular process. CTA is unremarkable. There is a moderate-sized hiatal hernia but this does not correlate with her symptoms. CBC unremarkable. CMP shows glucose of 122, CO2 20, gap 17. Electrolytes and renal function are normal. She was given IV fluids, IV Toradol x 1, IV morphine x 2, and p.o. Valium. She seems to be resting comfortably when observed from the hallway and she was able to ambulate easily to the bathroom. She reported some increased pain when I reexamined her but exam is still overall benign. I prescribe (more content not included)... Normal [facility] Epithelial cells.squamous LM Ql (Urine sed)Ordered By: Kyle Oates on 12-30-2024 Epithelial cells.squamous LM.HPF (Urine sed) [#/Area] 0 /[HPF] -10 [facility] Erythrocyte distribution wid th standard deviationOrdered By: Kyle Oates on 12-30-2024 Erythrocyte distribution width (RBC) [Entitic vol] 42.7 fL 35.1-43.9 [facility] GFR/1.73 sq M.predicted jalen g non-blacks MDRD (S/P/Bld) [Vol rate/Area]Ordered By: Kyle Oates on 12-30-2024 Estimated GFR (MDRD) Non-Af Amer 51 Low >60 [facility] Comment on above: mL/min/1.73m2 CKD-EP I Creatinine Equation (2020) Glucose Ql (U)Ordered By: Guillermina Oates on 12-30-2024 Urine Glucose (UA) Normal mg/dl Normal [facility] Immature granulocytes/100 WB C Auto (Bld)Ordered By: Kyle Oates on 12-30-2024 Immature granulocytes/100 WBC (Bld) 0.400 % 0.0-0.9 [facility] Comment on above: IG% - Immature Granu locytes (promyelocytes, myelocytes and metamyelocytes) > 1% indicates that a LEFT SHIFT is Present. Ketones Test strip Ql (U)Ord ered By: Kyle Oates on 12-30-2024 Ketones Ql (U) 15 mg/dl High Negative [facility] Lymphocytes Auto (Unsp spec) [#/Vol]Ordered By: Kyle Oates on 12-30-2024 Lymphocytes (Bld) [#/Vol] 0.61 10*3/uL Low 0.83-4.51 [facility] Microscopic analysis of urin e for red blood cells (RBC)Ordered By: Kyle Oates on 12-30-2024 Urine RBC 0-5 SEEN /hpf 0-5 [facility] Mucus LM Ql (Urine sed)Order ed By: Kyle Oates on 12-30-2024 Mucus Ql (Urine sed) 0 SEEN /hpf [facility] Nitrite Test strip Ql (U)Ord ered By: Kyle Oates on 12-30-2024 Nitrite Ql (U) Negative Negative [facility] Nucleated red blood cell per centageOrdered By: Kyle Oates on 12-30-2024 Nucleated RBC/100 WBC (Bld) [Ratio] 0 % 0-5 [facility] Potassium (Unsp spec) [Mass/ Vol]Ordered By: Kyle Oates on 12-30-2024 Potassium [Moles/Vol] 3.6 mmol/L 3.3-5.1 [facility] Comment on above: Hemolysis present, R esults could be affected. Protein Test strip Ql (U)Ord ered By: Kyle Oates on 12-30-2024 Protein Ql (U) 15 mg/dl High Negative [facility] Serum creatinine measurement (mass/volume)Ordered By: Kyle Oates on 12-30-2024 Creatinine [Mass/Vol] 1.20 mg/dL 0.70-1.20 [facility] Serum glucose measurement (m ass/volume)Ordered By: Kyle Oates on 12-30-2024 Glucose [Mass/Vol] 122 mg/dL High 70-99 [facility] Serum or plasma calcium mike urement (mass/volume)Ordered By: Kyle Oates on 12-30-2024 Calcium [Mass/Vol] 9.5 mg/dL 7.6-11.0 [facility] Serum or plasma urea nitroge n measurement (mass/volume)Ordered By: Kyle Oates on 12-30-2024 Urea nitrogen [Mass/Vol] 13 mg/dL 4-19 [facility] Sodium levelOrdered By: Kyle Oates on 12-30-2024 Sodium [Moles/Vol] 143 mmol/L 133-145 [facility] Urinalysis, Completeon 12-30 EPI,SQUAMOUS 0-5 SEEN Normal 5-10 [facility] Comment on above: Order Comment: CLEAN CATCH Performed By: #### L 400.0001 ####[facility] [address] [place], [address] RBC 0-5 SEEN Normal 0-5 [facility] Comment on above: Order Comment: CLEAN CATCH Performed By: #### L 400.0001 ####[facility] [address] [place], [address] BACTERIA 0 SEEN Normal None Seen [facility] Comment on above: Order Comment: CLEAN CATCH Performed By: #### L 400.0001 ####[facility] [address] [place], [address] Mucus Ql (Urine sed) 0 SEEN Normal [facility] Comment on above: Order Comment: CLEAN CATCH Performed By: #### L 400.0001 ####[facility] [address] [place], [address] WBC 0 SEEN Normal 0-5 [facility] Comment on above: Order Comment: CLEAN CATCH Performed By: #### L 400.0001 ####[facility] [address] [place], [address] Urine blood detectionOrdered By: Kyle Oates on 12-30-2024 Urine Occult Blood 10 /ul High Negative [facility] Urine clarityOrdered By: Dominique Oates on 12-30-2024 Clarity (U) Clear Clear [facility] Urine color determinationOrd ered By: Kyle Oates on 12-30-2024 Color (U) Yellow Yellow [facility] Urine leukocyte esterase det ection by dipstickOrdered By: Kyle Oates on 12-30-2024 Leukocyte esterase Test strip Ql (U) Negative Negative [facility] Urine pHOrdered By: Kyle anne on 12-30-2024 pH (U) 8.0 [pH] 5.0 - 8.0 [facility] Urine sediment bacteria coun t by microscopy (number/high power field)Ordered By: Kyle Ledezmaomid on 12-30-2024 Bacteria LM.HPF (Urine sed) [#/Area] 0 /[HPF] None Seen [facility] Urine specific gravity measu rementOrdered By: Kyle Ledezmaomid on 12-30-2024 Specific gravity (U) [Rel density] 1.010 1.002-1.03 0 [facility] Urobilinogen Ql (U)Ordered B y: Kyle Ledezmaomid on 12-30-2024 Urine Urobilinogen Normal mg/dl Normal [facility] White blood cell countOrdere d By: Kyle Ledezmaomid on 12-30-2024 Urine WBC 0 SEEN /hpf 0-5 [facility] Basic metabolic 2000 panelon 09-30-2024 Anion gap [Moles/Vol] 11 mmol/L Normal 8-15 [facility] Comment on above: Order Comment: Speci men Type: BLOOD SPECIMENOrdering Facility: [facility] Address: [address] [place] [address] Performed By: #### 2 132-9, 96130-4, 75666-5 ####[facility] [id number] [place] [address] [place] Calcium [Mass/Vol] 9.8 mg/dL Normal 8.5-10.2 [facility] Comment on above: Order Comment: Speci men Type: BLOOD SPECIMENOrdering Facility: [facility] Address: [address] [id number] Performed By: #### 2 132-9, 65596-2, 82008-7 ####[facility] LABIA [id number] [place] [id number] [place] Chloride [Moles/Vol] 103 mmol/L Normal 98-107 [facility] Comment on above: Order Comment: Speci men Type: BLOOD SPECIMENOrdering Facility: [facility] Address: [address] [id number] Performed By: #### 2 132-9, 58707-5, 87421-5 ####[facility] LABCLIA [id number] [place] [id number] [place] CO2 [Moles/Vol] 28 mmol/L Normal 22-30 [facility] Comment on above: Order Comment: Speci men Type: BLOOD SPECIMENOrdering Facility: [facility] Address: [address] [place] [address] Performed By: #### 2 132-9, 94743-8, ####[facility] LABCLIA [id number] [place] [address] [place] Creatinine [Mass/Vol] 1.14 mg/dL High 0.58-0.96 [facility] Comment on above: Order Comment: Speci men Type: BLOOD SPECIMENOrdering Facility: [facility] Address: [address] [place] [address] Performed By: #### 2 132-9, , ####[facility] LABCLIA [id number] [place] [address] [place] Creatinine and Glomerular filtration rate.predicted panel (S/P/Bld) 55 mL/min/1.73m??? Low >=60 [facility] Comment on above: Order Comment: Speci men Type: BLOOD SPECIMENOrdering Facility: [facility] Address: [address] [place] [address] Result Comment: Katey mated Glomerular Filtration Rate (eGFR) is calculated using the 2020 CKD-EPI creatinine equation. This equation utilizes serum creatinine, sex, and age as parameters. The creatinine assay has traceable calibration to isotope dilution-mass spectrometry. Refer to KDIGO guidelines for clinical interpretation. In patients with unstable renal function, e.g. those with acute kidney injury, the eGFR may not accurately reflect actual GFR. Performed By: #### 2 132-9, 71230-3, 21932-9 ####[facility] LABCLIA [id number] [place] [id number] [place] Glucose [Mass/Vol] 94 mg/dL Normal 74-99 [facility] Comment on above: Order Comment: Speci men Type: BLOOD SPECIMENOrdering Facility: [facility] Address: [address] [place] [address] Result Comment: The [place] Diabetes Association (ADA) provides guidance for cutoff values for fasting glucose and random glucose. The ADA defines fasting as no caloric intake for at least 8 hours. Fasting plasma glucose results between 100 to 125 mg/dL indicate increased risk for diabetes (prediabetes). Fasting plasma glucose results greater than or equal to 126 mg/dL meet the criteria for diagnosis of diabetes. In the absence of unequivocal hyperglycemia, results should be confirmed by repeat testing. In a patient with classic symptoms of hyperglycemia or hyperglycemic crisis, random plasma glucose results greater than or equal to 200 mg/dL meet the criteria for diagnosis of diabetes. Reference: Standards of Medical Care in Diabetes 2016, [place] [employer] Association. Diabetes Care. 2016.39(Suppl 1). Performed By: #### 2 132-9, , 98937-6 ####[facility] LABCLIA [id number] [place] [address] [place] Potassium [Moles/Vol] 4.0 mmol/L Normal 3.7-5.1 [facility] Comment on above: Order Comment: Speci men Type: BLOOD SPECIMENOrdering Facility: [facility] Address: [address] [place] [address] Performed By: #### 2 132-9, , 45042-5 ####[facility] LABCLIA [id number] [place] [address] [place] Sodium [Moles/Vol] 142 mmol/L Normal 136-144 [facility] Comment on above: Order Comment: Speci men Type: BLOOD SPECIMENOrdering Facility: [facility] Address: [address] [place], [place] [address] Performed By: #### 2 132-9, , 30079-6 ####[facility] LABCLIA [id number] [place] [address] [place] Urea nitrogen [Mass/Vol] 11 mg/dL Normal 7-21 [facility] Comment on above: Order Comment: Crystal cobb Type: BLOOD SPECIMENOrdering Facility: [facility] Address: [address] [place] [address] Performed By: #### 2 132-9, 70984-8, 13568-9 ####[facility] LABCLIA [id number] [place] [address] [place] HbA1c (Bld)on 09-30-2024 Average glucose Estimated from glycated hemoglobin (Bld) [Mass/Vol] 114 mg/dL Normal [facility] Comment on above: Order Comment: Crystal cobb Type: BLOOD SPECIMENOrdering Facility: [facility] Address: [address] [place] [address] Result Comment: eAG: (Estimated average glucose) is a calculated value from HgbA1c and is auto claim representative of the average blood glucose level in the last 2-3 month period. Performed By: #### 5 5454-3 ####[facility] LABIA [id number] [place] [address] [place] HbA1c (Bld) [Mass fraction] 5.6 % Normal 4.3-5.6 [facility] Comment on above: Order Comment: Crystal cobb Type: BLOOD SPECIMENOrdering Facility: [facility] Address: [address] [place] [address] Result Comment: Amer [place] Diabetes Association guidelines indicate that patients with HgbA1c in the range 5.7-6.4% are at increased risk for development of diabetes, and intervention by lifestyle modification may be beneficial. HgbA1c greater or equal to 6.5% is considered diagnostic of diabetes. Performed By: #### 5 5454-3 ####[facility] LABCLIA [id number] [place] [address] [place] Magnesium SerPl-mCncon 09-30 Magnesium [Mass/Vol] 2.2 mg/dL Normal 1.7-2.3 [facility] Comment on above: Order Comment: Speci men Type: BLOOD SPECIMENOrdering Facility: [facility] Address: [address] [place] [address] Performed By: #### 2 132-9, 65694-2, 73247-1 ####[facility] LABCLIA [id number] [address] [place] Vit B12 SerPl-ncon 024 Cobalamin (Vitamin B12) [Mass/Vol] 468 pg/mL Normal 232-1245 [facility] Comment on above: Order Comment: Jennyi men Type: BLOOD SPECIMENOrdering Facility: [facility] Address: [address] [place] [address] Performed By: #### 2 132-9, 52612-0, 84037-8 ####[facility] LABCLIA [id number] [address] [place] CNOVon 09-23-2024 CNOV Office Visit (FAMPWS ) ----- SUSAN BOBBY ([id number]) 1960 F Date Time Provider Department 09/23/24 5:00 PM JOSE BULLARD FAMPWS During your visit today, we recorded the following information about you: Pulse Blood pressure Weight Height 60/minute 126/76 79.2 kg 1.549 m Jose Bullard MD 09/23/2024 7:23 PM Signed Patient presents with: 6 Month Exam HPI: Patient presents today for office visit for follow up. HTN: Denies chest pain and shortness of breath Denies headaches and dizziness Denies palpitations and syncope Denies edema HLD: No myalgias DM: Monitors sugars occasionally Stable Watches diet Due for eye exam GERD: Symptom controlled Did mention some blood a couple weeks ago with BM when wiping. Appeared to be her hemorrhoids. No gi issues otherwise. Just had colonoscopy last year. Red flags for re-assessment reviewed with patient in detail. MEDICATIONS: Current Outpatient Medications Medication Sig pantoprazole DR (PROTONIX) 40 mg tablet TAKE 1 TABLET BY MOUTH EVERY DAY calcium phosphate dibas/vit D3 (VITAMIN D, WITH CALCIUM, ORAL) Take by mouth. benazepril (LOTENSIN) 20 mg tablet Take 1 tablet by mouth once daily. hydroCHLOROthiazide 25 mg tablet Take 1 tablet by mouth once daily. metFORMIN (GLUCOPHAGE) 500 mg tablet Take 1 tablet by mouth daily with breakfast. rosuvastatin (CRESTOR) 5 mg tablet Take 1 tablet by mouth once daily. multivitamin (DAILY VITAMIN ORAL) Take by mouth once daily. blood sugar diagnostic (BLOOD GLUCOSE TEST) test strip Test blood sugar(s) 1 times daily. Dx: Type 2 DM - Controlled E11.9 Insulin: No No current facility-administered medications for this visit. ALLERGIES: ALLERGIES No Known Allergies PAST MEDICAL HISTORY Diagnosis Date Acute gastritis DM (diabetes mellitus) (HCC) GERD (gastroesophageal reflux disease) Hiatal hernia HLD (hyperlipidemia) HTN (hypertension) PAST SURGICAL HISTORY Procedure Laterality Date CHOLECYSTECTOMY N/A done when she was 23 COLONOSCOPY 01/13/2023 EGD W/O [facility] SPEC VARICIES INJ unsure of year EGD W/O [facility] SPEC VARICIES INJ 05/19/2022 TOTAL ABDOMINAL HYSTERECT W/WO RMVL TUBE OVARY N/A 10/2017 for abnormal bleeding. no cancer VAGINAL HYSTERECTOMY FAMILY HISTORY Problem Relation Age of Onset Hypertension Mother Dementia Father Social History Tobacco Use Smoking status: Never Smokeless tobacco: Never Vaping Use Vaping status: Never Used Substance Use Topics Alcohol use: No Drug use: No Reviewed current medications, allergies, past medical history, surgical history, family history and social history today. REVIEW OF SYSTEMS All other reviewed and negative other than HPI. HEALTH MAINTENANCE: Reviewed health maintenance issues today and recommended the following in detail. Depression Screening Never done Anxiety Screening Never done Dilated Retinal Exam -sees them this weeks. Diabetic Foot Exam due on 05/15/2024 Influenza Vaccine(1) due on 06/23/2024 Covid-19 Vaccine( season) due on 06/23/2024 HbA1C due on 09/21/2024 VITALS: BP 126/76 Pulse 60 Ht 154.9 cm (5' 1) Wt 79.2 kg (174 lb 9.7 oz) SpO2 98% BMI 32.99 kg/m? Last 4 Encounter Wt Readings: Date: Wt: 08/07/2024 76.2 kg (168 lb) 06/26/2024 76.4 kg (168 lb 6.4 oz) 03/22/2024 77.6 kg (171 lb) 11/17/2023 75.8 kg (167 lb) PHYSICAL EXAMINATION: General appearance: Well appearing, alert, in no acute distress, well-hydrated, well nourished. Skin: Skin color, texture, turgor normal, no suspicious rashes or lesions Head: Normocephalic, no masses, lesions, tenderness or abnormalities Lungs: Lungs clear to auscultation. No wheezing, rhonchi, rales Heart: RRR without murmur, gallop, or rubs. No ectopy Abdomen: Normal abdominal exam, Abdomen soft, non-tender. Bowel sounds normal. No masses, organomegaly Extremities: No deformities, edema, skin discoloration, clubbing or cyanosis. Good capillary refill. Feet:Shoes and socks removed, No deformities, ulcers, calluses, normal distal pulses, and sensitive to 10 gm monofilament ASSESSMENT/PLAN: 1. Hypertension, essential - ICD9: 401.9, ICD10: I10 (primary diagnosis) - Controlled - Continue current medications 2. Encounter for immunization - ICD9: V03.89, ICD10: Z23 - INFLUENZA VACCINE, AGE 6MO-64YR, TRIVALENT (AFLURIA, FLULAVAL, FLUVIRIN, FLUZONE) - [facility] COVID-19 VACCINE AGE 12+ YR (COMIRNATY) 3. Hyperlipidemia, mixed - ICD9: 272.2, ICD10: E78.2 - Controlled - Continue current medications 4. GERD without esophagitis - ICD9: 530.81, ICD10: K21.9 - stable on meds. 5. Gastritis without bleeding, unspecified chronicity, unspecified gastritis type - ICD9: 535.50, ICD10: K29.70 - stay on ppi 6. Stage 3 chronic kidney disease, unspecified whether stage 3a or 3b CKD (HCC) - ICD9: 585.3, ICD10: N18 (more content not included)... Normal [facility] ANES POSTPROC EVALon 024 ANES POSTPROC EVAL HNO ID: [id number] Author: JOSE JOHNSON DO Service: Anesthesiology Author Type: Anesthesiologist Type: Anesthesia Postprocedure Evaluation Filed: 08/07/2024 13:43 Note Text: POST ANESTHESIA EVALUATION NOTE : 1960 Procedure Summary Date: 08/07/24 Room / Location: [facility] Endoscopy Anesthesia Start: 927 Anesthesia Stop: 945 Procedure: EGD DIAGNOSTIC Diagnosis: Gastritis without bleeding, unspecified chronicity, unspecified gastritis type Hiatal hernia (Established esophageal reflux) Scheduled Providers: Sussy Reid MD; Jose Johnson DO; Paulo Herzog APRN.BREAKER MECHANIC Responsible Provider: Jose Johnson DO Anesthesia Type: MAC ASA Status: 3 Anesthesia Type: MAC Last Vitals Vitals Value Taken Time BP 168/82 08/07/24 1042 Temp 36.3 ?C (97.3 ?F) 08/07/24 0955 HR SpO2 50 08/07/24 1042 Resp 16 08/07/24 1042 SpO2 99 % 08/07/24 1042 Post Anesthesia Patient Status Patient Evaluation: PACU. PACU/ICU Patient Condition: stable. Anticipated Disposition: phase 2 then home. Neurological Status: aware and responsive. Pulmonary Status: breathing comfortably on room air Airway Control: returned to baseline unsupported. Cardiovascular Status: stable. Pain Management: clinically adequate Postoperative Hydration: acceptable. Intraoperative Events: no significant anesthesia events Post Operative Nausea/Vomiting Status: no significant post operative nausea or vomiting Recommendation: continue current plan of care and further care per PACU/ICU/floor team. Anesthesia Observations No Documentation SIGNATURE: Jose Johnson DO PATIENT NAME: Susan Bobby DATE: August 07, 2024 TIME: 1:43 PM CSN: [id number] Normal [facility] ANES PRE-OPon 08-07-2024 ANES PRE-OP HNO ID: [id number] Author: JOSE JOHNSON DO Service: Anesthesiology Author Type: Anesthesiologist Type: Anesthesia Preprocedure Evaluation Filed: 08/07/2024 09:09 Note Text: ANESTHESIOLOGY DAY OF SURGERY NOTE : 1960 Procedure Information Date/Time: 08/07/24 1030 Scheduled providers: Sussy Reid MD; Jose Johnson DO; Paulo Herzog APRN.BREAKER MECHANIC Procedure: EGD DIAGNOSTIC Location: [facility] Endoscopy Estimated body mass index is 31.82 kg/m? as calculated from the following: Height as of 06/26/24: 154.9 cm (5' 1). Weight as of 06/26/24: 76.4 kg (168 lb 6.4 oz). Most recent hematocrit and potassium results: Hematocrit 39.9 03/22/2024 Potassium 3.8 03/22/2024 Relevant Problems CARDIO (+) Hypertension, essential ENDO (+) Controlled type 2 diabetes mellitus without complication (HCC) GI (+) GERD without esophagitis -RENAL (+) CKD (chronic kidney disease) stage 3, GFR 30-59 ml/min ([facility]) I - PHYSICAL EVALUATION AIRWAY Patient intubated: No. Tracheostomy tube not present Mallampati: II. TM distance: >3 FB. Neck ROM: full ROM without neurological symptoms. Mouth opening: adequate. Short neck: no. Thick neck: no DENTAL Dental findings: teeth intact. II - ANESTHESIA PLAN ASA Score: 3 Anesthetic Plan: MAC NPO Status: adequate Beta Vincent Monitoring Plan Monitoring plan: standard ASA. Post Procedure Analgesic Plan Postoperative analgesic plan: parenteral or oral opioids. Informed Consent Anesthetic risks, benefits, alternatives, personnel and consent discussed: yes. Patient / Responsible Constitution Party agrees to proceed: yes Patient / Surrogate agrees to blood products: Yes DNR status not reviewed with patient and/or family prior to surgery. Significant changes in the patient condition since the History and Physical, not otherwise documented in primary service progress note: no. Potential Anesthesia issues that may suggest increased risk of complications or contraindication to planned procedure: none. No vitals data found for the desired time range. Outpatient Medications as of 08/07/2024 Medication Sig benazepril (LOTENSIN) 20 mg tablet Take 1 tablet by mouth once daily. hydroCHLOROthiazide 25 mg tablet Take 1 tablet by mouth once daily. metFORMIN (GLUCOPHAGE) 500 mg tablet Take 1 tablet by mouth daily with breakfast. rosuvastatin (CRESTOR) 5 mg tablet Take 1 tablet by mouth once daily. multivitamin (DAILY VITAMIN ORAL) Take by mouth once daily. blood sugar diagnostic (BLOOD GLUCOSE TEST) test strip Test blood sugar(s) 1 times daily. Dx: Type 2 DM - Controlled E11.9 Insulin: No pantoprazole DR (PROTONIX) 40 mg tablet TAKE 1 TABLET BY MOUTH EVERY DAY calcium phosphate dibas/vit D3 (VITAMIN D, WITH CALCIUM, ORAL) Take by mouth. Facility-Administered Medications as of 08/07/2024 Medication Dose Route Frequency lidocaine (PF) 10 mg/mL (1 %) 1-2 mg injection (XYLOCAINE) 0.1-0.2 mL INTRADERMAL PRN lactated ringers iv infusion 30 mL/hr INTRAVENOUS CONTINUOUS lactated ringers iv infusion 30 mL/hr INTRAVENOUS CONTINUOUS I have interviewed and examined the patient. I have reviewed the medical record and/or the pre-anesthesia evaluation, pertinent labs, and test results. This contains updated information obtained within 48 hours of Surgery/Procedure. SIGNATURE: Jose Johnson DO PATIENT NAME: Susan Bobby DATE: August 07, 2024 TIME: 9:08 AM CSN: [id number] Normal [facility] EGD Study observation Kusum chong 08-07-2024 [facility] Gastrointestinal Endoscopy Patient Name: Susan Bobby Procedure Date: 08/07/2024 8:55 AM Date of : 1960 Admit Type: Outpatient Age: 64 Room: [facility] Gender: Female Note Status: Finalized Attending MD: Sussy Reid MD, [id number] Procedure: Upper GI endoscopy Indications: Esophageal reflux Providers: Sussy Reid MD Patient Profile: Refer to note in patient chart for documentation of history and physical. Referring Physician: Kip Zhang (Referring MD) Medicines: See the Anesthesia note for documentation of the administered medications Complications: No immediate complications. Requesting Provider: Procedure: Pre-Anesthesia Assessment: - Monitored anesthesia care under the supervision of a BREAKER MECHANIC was determined to be medically necessary for this procedure based on review of the patient's medical history, medications, and prior anesthesia history. After obtaining informed consent, the endoscope was passed under direct vision. Throughout the procedure, the patient's blood pressure, pulse, and oxygen saturations were monitored continuously. The Endoscope was introduced through the mouth, and advanced to the second part of duodenum. The upper GI endoscopy was accomplished without difficulty. The patient tolerated the procedure well. Moderate Sedation: MAC anesthesia was administered by the anesthesia team. Total Procedure Duration: 0 hours 6 minutes 20 seconds Findings: The first portion of the duodenum and second portion of the duodenum were normal. Localized mildly erythematous mucosa without bleeding was found in the gastric antrum. Biopsies were taken with a cold forceps for histology. Verification of patient identification for the specimen was done by the nurse. Estimated blood loss was minimal. A medium-sized to large hiatal hernia with sliding component was present. The Z-line was irregular and was found 35 cm from the incisors. Biopsies were taken with a cold forceps for histology. Verification of patient identification for the specimen was done by the nurse. Estimated blood loss was minimal. Impression: - Normal first portion of the duodenum and second portion of the duodenum. - Erythematous mucosa in the antrum. Biopsied. - Medium-sized hiatal hernia. - Z-line irregular, 35 cm from the incisors. Biopsied. Recommendation: - Discharge patient to home (ambulatory). - Resume previous diet. - - Follow up with Sherley Wiggins NP, may be via televisit for discussion of pathology results and determination of timing of future endoscopies Procedure Code(s): --- Professional --- 91872, Esophagogastroduodenoscop y, flexible, transoral; with biopsy, single or multiple Diagnosis Code(s): --- Professional --- K21.9, Gastro-esophageal reflux disease without esophagitis K22.89, Other specified disease of esophagus K44.9, Diaphragmatic hernia without obstruction or gangrene K31.89, Other diseases of stomach and duodenum CPT copyright 2020 [employer]. All rights reserved. The codes documented in this report are preliminary and upon steward/stewardess third review may be revised to meet current compliance requirements. Attending Participation: I personally performed the entire procedure. Scope In: 9:34:00 AM Scope Out: 9:40:20 AM MD Sussy Fleming MD 08/07/2024 9:45:25 AM This report has been signed electronically by Sussy Reid MD Number of Addenda: 0 Note Initiated On: 08/07/2024 8:55 AM Estimated Blood Loss: Estimated blood loss was minimal. PROVATION [facility] Radiology Study observation (narrative) [facility] GLUCOSE, BLOOD (POC)on 08-07 Glucose [Mass/Vol] 78 mg/dL 74 - 99 mg/dL [facility] Comment on above: Location:[facility], [address] [place] [address], [address] The Accu-Chek Inform II glucose meter has not been approved for testing on patients receiving intensive medical intervention or therapy and results from this point of care glucose test should not be used for patient management decisions in these cases. Inaccurate results may also occur from other interfering factors, such as N-acetylcysteine (blood concentrations of greater than 5mg/dL), galactose, extremes of hematocrit (<10 or >65), or high doses of ascorbic acid (vitamin C) greater than 3mg/dL. Consider alternate testing mechanisms (e.g. core lab, blood gas instrument) in the above situations. [facility] Glucose [Mass/Vol] 82 mg/dL 74 - 99 mg/dL [facility] Comment on above: Location:[facility], [address] [place], [place], [address] The Accu-Chek Inform II glucose meter has not been approved for testing on patients receiving intensive medical intervention or therapy and results from this point of care glucose test should not be used for patient management decisions in these cases. Inaccurate results may also occur from other interfering factors, such as N-acetylcysteine (blood concentrations of greater than 5mg/dL), galactose, extremes of hematocrit (<10 or >65), or high doses of ascorbic acid (vitamin C) greater than 3mg/dL. Consider alternate testing mechanisms (e.g. core lab, blood gas instrument) in the above situations. [facility] HISTORY PHYSICALon HISTORY PHYSICAL HNO ID: [id number] Author: SUSSY REID MD Service: General Surgery Author Type: Physician Type: H&P Filed: 08/07/2024 09:15 Note Text: Ms. Bobby is a 64 year old female with contributing past medical and surgical history significant for irregular gastroesophgeal junction and moderate sized hiatal hernia with sliding component (EGD 2021), GERD, HTN, HLD, T2DM, s/p cholecystectomy. The patient presents with recurrent epigastric pain after eating . Started protonix in 2021. She was initially taking protonix 40mg daily then transitioned to 40mg every other day when symptoms were controlled. She was seen by Gail Mccain PA-C on 05/31/2022 for follow up after EGD to discuss possible hiatal hernia repair. At that time, she had improved symptoms on protonix and wanted to proceed with medical management and would contact the general surgery office if she had any worsening of symptoms. She reports an increased epigastric pain over the past several months after eating. The episodes of pain are intermittent, and do not occur after every meal. Denies nausea and vomiting. Denies change in bowel habits. Last colonoscopy 01/13/2023 for screening showed non-bleeding external and internal hemorrhoids and one 2-3mm polyp at the splenic flexure that was removed with cold forceps. PAST MEDICAL HISTORY PAST MEDICAL HISTORY No date: Acute gastritis No date: DM (diabetes mellitus) (HCC) No date: GERD (gastroesophageal reflux disease) No date: Hiatal hernia No date: HLD (hyperlipidemia) No date: HTN (hypertension) PAST SURGICAL HISTORY PAST SURGICAL HISTORY No date: CHOLECYSTECTOMY; N/A Comment: done when she was 23 01/13/2023: COLONOSCOPY No date: EGD W/O [facility] SPEC VARICIES INJ Comment: unsure of year 05/19/2022: EGD W/O [facility] SPEC VARICIES INJ Comment: 10/2017: TOTAL ABDOMINAL HYSTERECT W/WO RMVL TUBE OVARY; N/A Comment: for abnormal bleeding. no cancer No date: VAGINAL HYSTERECTOMY FAMILY HISTORY FAMILY HISTORY Problem Relation Age of Onset Hypertension Mother Dementia Father SOCIAL HISTORY Social History Tobacco Use Smoking status: Never Smokeless tobacco: Never Vaping Use Vaping status: Never Used Substance Use Topics Alcohol use: No Drug use: No The patient has the following: Problem List Noted Noted By Resolved Resolved By History of tubal ligation 11/17/2023 Tiffanie Burks MA No Overview Signed 11/17/2023 3:48 PM by Tiffanie Burks MA Comment on above: 1990 Iron deficiency 11/17/2023 Tiffanie Burks MA No Menorrhagia 11/17/2023 Tiffanie Burks MA No Onychomycosis 11/17/2023 Tiffanie Burks MA No Osteopenia 11/17/2023 Tiffanie Burks MA No Postmenopausal bleeding 11/17/2023 Tiffanie Burks MA No Sleep disorder 11/17/2023 Tiffanie Burks MA No Overview Signed 11/17/2023 3:48 PM by Tiffanie Burks MA Comment on above: testosterone normal try exercise- she has noted it better in past with exercise 1985 14 child- 1990 Stress incontinence in female 11/17/2023 Tiffanie Burks MA No Controlled type 2 diabetes mellitus without complication ([facility]) 05/10/2023 Jose Bullard MD No Obesity, Class I, BMI 30-34.9 05/19/2022 Claire Redman MD No CKD (chronic kidney disease) stage 3, GFR 30-59 ml/min ([facility]) 05/13/2022 Jose Bullard MD No Hypertension, essential 12/20/2018 Podlogar, 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 No GERD without esophagitis 12/20/2018 Podlogar, 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 No Hyperlipidemia, mixed 12/20/2018 Podlogar, 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 No Abnormal glucose tolerance test (GTT) 11/17/2023 Tiffanie Burks MA 03/22/2024 Jose Bullard MD Non-smoker 11/17/2023 Tiffanie Burks MA 03/22/2024 Jose Bullard MD Shortness of breath at rest 11/17/2023 Tiffanie Burks MA 03/22/2024 Jose Bullard MD Overview Signed 11/17/2023 3:48 PM by Tiffanie Burks MA Comment on above: awaiting pfts if negative send to cardio Suprapubic pain 11/17/2023 Tiffanie Burks MA 03/22/2024 Jose Bullard MD Overview Signed 11/17/2023 3:48 PM by Tiffanie Burks MA Comment on above: if urine negative do pelvic us Swelling of extremity 11/17/2023 Tiffanie Burks MA 03/22/2024 Jose Bullard MD MEDICATIONS CURRENT MEDICATIONS Current Outpatient Medications Medication Sig Dispense Refill calcium phosphate dibas/vit D3 (VITAMIN D, WITH CALCIUM, ORAL) Take by mouth. benazepril (LOTENSIN) 20 mg tablet Take 1 tablet by mouth once daily. 30 tablet 5 hydroCHLOROthiazide 25 mg tablet Take 1 tablet by mouth once daily. 30 tablet 5 metFORMIN (GLUCOPHAGE) 500 mg tablet Take 1 tablet by mouth daily with breakfast. 30 tablet 5 rosuvastatin (CRESTOR) 5 mg tablet Take 1 tablet by mouth once daily. 30 tablet 5 multivitamin (DAILY VITAMIN ORAL) Take by mouth once daily. blood sugar diagnostic (BLOOD GLUCOSE TEST) test strip Test blood sugar(s) 1 times daily. Dx: Type 2 DM - Controlled E11.9 Insulin: No [address] (PROTONIX) 40 mg table (more content not included)... [facility] SURGICAL PATHOLOGYon 16- 024 ADDENDUM 1: [facility] Comment on above: Order Comment: Crystal cobb Type: TISSUE SPECIMEN [facility] Address: [address] [place] [address] Result Comment: H. p ylori immunostain performed on the stomach biopsy (part A) to evaluate the chronic gastritis is negative for organisms. Laboratory Developed Test (LDT) Disclaimer: Performance characteristics of immunohistochemical, immunofluorescent and chromogenic in-situ hybridization tests have been determined by the performing laboratory within [facility]???[facility] Pathology and Laboratory Medicine Department ([facility], [facility], [facility], [facility], [place] Hospital, [facility], or [facility]) in a manner consistent with CLIA requirements. One or more of these tests have not been cleared or approved by the FDA. [facility] is regulated under CLIA as qualified to perform high-complexity testing. These tests are used for clinical purposes. They should not be regarded as investigational or for research. Positive and negative controls stain appropriately. Addendum electronically signed by Dayanara Rivera MD on 08/09/2024 at 1:44 PM Performed By: #### S #### [facility] CLIA [id number] [address] [place] [address] STATES OF [place] [facility] CLIA [id number] [address] [place] [address] STATES OF [place] CASE REPORT [facility] Comment on above: Order Comment: Crystal cobb Type: TISSUE SPECIMEN Ordering Facility: [facility] Address: [address] [place] [address] Result Comment: Surg [facility] Pathology Report Case: [id number] Authorizing Provider: Sussy Reid MD Collected: 08/07/2024 09:37 AM Ordering Location: [facility] Endoscopy Received: 08/07/2024 12:11 PM Pathologist: Dayanara Rivera MD Specimens: A) - Stomach, Biopsy, antral B) - Esophagogastric Junction, Biopsy Performed By: #### S #### [facility] CLIA [id number] [address] [place] [address] LAB CLIA [id number] [address] [place] [address] DIAGNOSIS COMMENT H. pylori immunostai n is pending. Normal [facility] Comment on above: Order Comment: Speci men Type: TISSUE SPECIMEN Ordering Facility: [facility] Address: [address] [place] [address] Performed By: #### S #### [facility] CLIA [id number] [address] [place] [address] LAB CLIA [id number] [address] [place] [address] FINAL DIAGNOSIS Normal [facility] Comment on above: Order Comment: Speci men Type: TISSUE SPECIMEN Ordering Facility: [facility] Address: [address] [place] [address] Result Comment: A. S tomach, biopsy: - Fundic mucosa with mild chronic inactive gastritis. - See comment. B. Esophagogastric junction, biopsy: - Mildly reactive squamous mucosa. - No evidence of intestinal metaplasia or dysplasia. Performed By: #### S #### [facility] CLIA [id number] [address] [place] [address] LAB CLIA [id number] [address] [place] [address] OF [place]ESSICA [facility] Comment on above: Order Comment: Speci men Type: TISSUE SPECIMEN Ordering Facility: [facility] Address: [address] [place] [address] Result Comment: Diag nostic interpretation performed at [facility], [id number] [place] [address] CLIA# [id number] Lumber Carrier: Marsha Kathleen M.D. Performed By: #### S #### [facility] CLIA [id number] [address] [place] [address] OF [facility] CLIA [id number] [address] [place] [address] STATES OF [place]ESSICA GROSS DESCRIPTION [facility] Comment on above: Order Comment: Speci men Type: TISSUE SPECIMEN Ordering Facility: [facility] Address: [address] [place] [address] Result Comment: A. S tomach, Biopsy Received in formalin is one piece of chan, soft tissue measuring 0.3 x 0.3 x 0.2 cm. Totally submitted in one cassette. B. Esophagogastric Junction, Biopsy Received in formalin are two pieces of chan, soft tissue aggregating to 0.6 x 0.2 x 0.2 cm. Totally submitted in one cassette. August 07, 2024 4:40 PM Gross examination performed at [facility], [address] [place] [address] Performed By: #### S #### [facility] CLIA [id number] [address] [place] [address] STATES OF [facility] CLIA [id number] [address] [place] [address] [place] Upper GI endoscopy 10-16-2 024 Upper GI endoscopy [facility] Gastrointestinal Endoscopy Patient Name: Susan Bobby Procedure Date: 08/07/2024 8:55 AM Date of : 1960 Admit Type: Outpatient Age: 64 Room: [facility] Gender: Female Note Status: Finalized Attending MD: Sussy Reid MD, [id number] Procedure: Upper GI endoscopy Indications: Esophageal reflux Providers: Sussy Reid MD Patient Profile: Refer to note in patient chart for documentation of history and physical. Referring Physician: Kip Zhang (Referring MD) Medicines: See the Anesthesia note for documentation of the administered medications Complications: No immediate complications. Requesting Provider: Procedure: Pre-Anesthesia Assessment: - Monitored anesthesia care under the supervision of a BREAKER MECHANIC was determined to be medically necessary for this procedure based on review of the patient's medical history, medications, and prior anesthesia history. After obtaining informed consent, the endoscope was passed under direct vision. Throughout the procedure, the patient's blood pressure, pulse, and oxygen saturations were monitored continuously. The Endoscope was introduced through the mouth, and advanced to the second part of duodenum. The upper GI endoscopy was accomplished without difficulty. The patient tolerated the procedure well. Moderate Sedation: MAC anesthesia was administered by the anesthesia team. Total Procedure Duration: 0 hours 6 minutes 20 seconds Findings: The first portion of the duodenum and second portion of the duodenum were normal. Localized mildly erythematous mucosa without bleeding was found in the gastric antrum. Biopsies were taken with a cold forceps for histology. Verification of patient identification for the specimen was done by the nurse. Estimated blood loss was minimal. A medium-sized to large hiatal hernia with sliding component was present. The Z-line was irregular and was found 35 cm from the incisors. Biopsies were taken with a cold forceps for histology. Verification of patient identification for the specimen was done by the nurse. Estimated blood loss was minimal. Impression: - Normal first portion of the duodenum and second portion of the duodenum. - Erythematous mucosa in the antrum. Biopsied. - Medium-sized hiatal hernia. - Z-line irregular, 35 cm from the incisors. Biopsied. Recommendation: - Discharge patient to home (ambulatory). - Resume previous diet. - - Follow up with Sherley Wiggins NP, may be via televisit for discussion of pathology results and determination of timing of future endoscopies Procedure Code(s): --- Professional --- 06746, Esophagogastroduodenoscop y, flexible, transoral; with biopsy, single or multiple Diagnosis Code(s): --- Professional --- K21.9, Gastro-esophageal reflux disease without esophagitis K22.89, Other specified disease of esophagus K44.9, Diaphragmatic hernia without obstruction or gangrene K31.89, Other diseases of stomach and duodenum CPT copyright 2020 [employer]. All rights reserved. The codes documented in this report are preliminary and upon steward/stewardess third review may be revised to meet current compliance requirements. Attending Participation: I personally performed the entire procedure. Scope In: 9:34:00 AM Scope Out: 9:40:20 AM MD Sussy Fleming MD 08/07/2024 9:45:25 AM This report has been signed electronically by Sussy Reid MD Number of Addenda: 0 Note Initiated On: 08/07/2024 8:55 AM Estimated Blood Loss: Estimated blood loss was minimal. Normal [facility] 06-26-2024 [facility] Office Visit (GENS[facility] ) ----- SUSAN BOBBY ([id number]) 1960 F Date Time Provider Department 06/26/24 3:30 PM KIP ZHANG During your visit today, we recorded the following information about you: Temperature Pulse Blood pressure Weight 97.7 degrees 76/minute 118/72 76.4 kg Height 1.549 m Kip Zhang DO 06/29/2024 10:57 AM Signed General Surgery Consult REASON FOR VISIT Susan Bobby is a 64 year old female who is scheduled for a consult at the request of Melany Kuo / Jose Bullard MD for gastritis. My final recommendations will be communicated back to the requesting physician by the way of the shared medical record, fax, or via US Mail History of Present Illness: Susan Bobby is a 64 year old female with contributing past medical and surgical history significant for irregular gastroesophgeal junction and moderate sized hiatal hernia with sliding component (EGD 2021), GERD, HTN, HLD, T2DM, s/p cholecystectomy. The patient presents with recurrent epigastric pain after eating . Started protonix in 2021. She was initially taking protonix 40mg daily then transitioned to 40mg every other day when symptoms were controlled. She was seen by Gail Mccain PA-C on 05/31/2022 for follow up after EGD to discuss possible hiatal hernia repair. At that time, she had improved symptoms on protonix and wanted to proceed with medical management and would contact the general surgery office if she had any worsening of symptoms. She reports an increased epigastric pain over the past several months after eating. The episodes of pain are intermittent, and do not occur after every meal. Denies nausea and vomiting. Denies change in bowel habits. Last colonoscopy 01/13/2023 for screening showed non-bleeding external and internal hemorrhoids and one 2-3mm polyp at the splenic flexure that was removed with cold forceps. PAST MEDICAL HISTORY No date: Acute gastritis No date: DM (diabetes mellitus) (HCC) No date: GERD (gastroesophageal reflux disease) No date: Hiatal hernia No date: HLD (hyperlipidemia) No date: HTN (hypertension) PAST SURGICAL HISTORY No date: CHOLECYSTECTOMY; N/A Comment: done when she was 23 01/13/2023: COLONOSCOPY No date: EGD W/O [facility] SPEC VARICIES INJ Comment: unsure of year 05/19/2022: EGD W/O [facility] SPEC VARICIES INJ Comment: 10/2017: TOTAL ABDOMINAL HYSTERECT W/WO RMVL TUBE OVARY; N/A Comment: for abnormal bleeding. no cancer No date: VAGINAL HYSTERECTOMY FAMILY HISTORY Problem Relation Age of Onset Hypertension Mother Dementia Father Social History Tobacco Use Smoking status: Never Smokeless tobacco: Never Vaping Use Vaping status: Never Used Substance Use Topics Alcohol use: No Drug use: No The patient has the following: Problem List Noted Noted By Resolved Resolved By History of tubal ligation 11/17/2023 Tiffanie Burks MA No Overview Signed 11/17/2023 3:48 PM by Tiffanie Burks MA Comment on above: 1990 Iron deficiency 11/17/2023 Tiffanie Burks MA No Menorrhagia 11/17/2023 Tiffanie Burks MA No Onychomycosis 11/17/2023 Tiffanie Burks MA No Osteopenia 11/17/2023 Tiffanie Burks MA No Postmenopausal bleeding 11/17/2023 Tiffanie Burks MA No Sleep disorder 11/17/2023 Tiffanie Burks MA No Overview Signed 11/17/2023 3:48 PM by Tiffanie Burks MA Comment on above: testosterone normal try exercise- she has noted it better in past with exercise 1985 14 child- 1988 Stress incontinence in female 11/17/2023 Tiffanie Burks MA No Controlled type 2 diabetes mellitus without complication ([facility]) 05/10/2023 Jose Bullard MD No Obesity, Class I, BMI 30-34.9 05/19/2022 Claire Redman MD No CKD (chronic kidney disease) stage 3, GFR 30-59 ml/min ([facility]) 05/13/2022 Jose Bullard MD No Hypertension, essential 12/20/2018 Podlogar, 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 No GERD without esophagitis 12/20/2018 Podlogar, 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 No Hyperlipidemia, mixed 12/20/2018 Podlogar, 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 No Abnormal glucose tolerance test (GTT) 11/17/2023 Tiffanie Burks MA 03/22/2024 Jose Bullard MD Non-smoker 11/17/2023 Tiffanie Burks MA 03/22/2024 Jose Bullard MD Shortness of breath at rest 11/17/2023 Tiffanie Burks MA 03/22/2024 Jose Bullard MD Overview Signed 11/17/2023 3:48 PM by Tiffanie Burks MA Comment on above: awaiting pfts if negative send to cardio Suprapubic pain 11/17/2023 Tiffanie Burks MA 03/22/2024 Jose Bullard MD Overview Signed 11/17/2023 3:48 PM by Tiffanie Burks MA Comment on above: if urine negative do pelvic us Swelling of extremity 11/17/2023 Tiffanie Burks MA 03/22/2024 Jose Bullard MD MEDICATIONS Current Outpatient Medications Medication Sig Dispense Refill calcium phosphate dibas/vit D3 (VITAMIN D, WITH CALCIUM, ORAL) Take by mouth. benazepril (LOTENSIN) 20 mg tab (more content not included)... Normal [facility] HISTORY PHYSICALon HISTORY PHYSICAL HNO ID: [id number] Author: KIP ZHANG, DO Service: ? Author Type: Physician Type: H&P Filed: 06/29/2024 10:57 Note Text: General Surgery Consult REASON FOR VISIT Susan Bobby is a 64 year old female who is scheduled for a consult at the request of Melany Kuo / Jose Bullard MD for gastritis. My final recommendations will be communicated back to the requesting physician by the way of the shared medical record, fax, or via US Mail History of Present Illness: Susan Bobby is a 64 year old female with contributing past medical and surgical history significant for irregular gastroesophgeal junction and moderate sized hiatal hernia with sliding component (EGD 2021), GERD, HTN, HLD, T2DM, s/p cholecystectomy. The patient presents with recurrent epigastric pain after eating . Started protonix in 2021. She was initially taking protonix 40mg daily then transitioned to 40mg every other day when symptoms were controlled. She was seen by Gail Mccain PA-C on 05/31/2022 for follow up after EGD to discuss possible hiatal hernia repair. At that time, she had improved symptoms on protonix and wanted to proceed with medical management and would contact the general surgery office if she had any worsening of symptoms. She reports an increased epigastric pain over the past several months after eating. The episodes of pain are intermittent, and do not occur after every meal. Denies nausea and vomiting. Denies change in bowel habits. Last colonoscopy 01/13/2023 for screening showed non-bleeding external and internal hemorrhoids and one 2-3mm polyp at the splenic flexure that was removed with cold forceps. PAST MEDICAL HISTORY No date: Acute gastritis No date: DM (diabetes mellitus) (HCC) No date: GERD (gastroesophageal reflux disease) No date: Hiatal hernia No date: HLD (hyperlipidemia) No date: HTN (hypertension) PAST SURGICAL HISTORY No date: CHOLECYSTECTOMY; N/A Comment: done when she was 23 01/13/2023: COLONOSCOPY No date: EGD W/O BRSH SPEC VARICIES INJ Comment: unsure of year 05/19/2022: EGD W/O BRSH SPEC VARICIES INJ Comment: 10/2017: TOTAL ABDOMINAL HYSTERECT W/WO RMVL TUBE OVARY; N/A Comment: for abnormal bleeding. no cancer No date: VAGINAL HYSTERECTOMY FAMILY HISTORY Problem Relation Age of Onset Hypertension Mother Dementia Father Social History Tobacco Use Smoking status: Never Smokeless tobacco: Never Vaping Use Vaping status: Never Used Substance Use Topics Alcohol use: No Drug use: No The patient has the following: Problem List Noted Noted By Resolved Resolved By History of tubal ligation 11/17/2023 Tiffanie Burks MA No Overview Signed 11/17/2023 3:48 PM by Tiffanie Burks MA Comment on above: 1990 Iron deficiency 11/17/2023 Tiffanie Burks MA No Menorrhagia 11/17/2023 Tiffanie Burks MA No Onychomycosis 11/17/2023 Tiffanie Burks MA No Osteopenia 11/17/2023 Tiffanie Burks MA No Postmenopausal bleeding 11/17/2023 Tiffanie Burks MA No Sleep disorder 11/17/2023 Tiffanie Burks MA No Overview Signed 11/17/2023 3:48 PM by Tiffanie Burks MA Comment on above: testosterone normal try exercise- she has noted it better in past with exercise 1985 3rd child- 1990 Stress incontinence in female 11/17/2023 Tiffanie Burks MA No Controlled type 2 diabetes mellitus without complication (HCC) 05/10/2023 Jose Bullard MD No Obesity, Class I, BMI 30-34.9 05/19/2022 Claire Redman MD No CKD (chronic kidney disease) stage 3, GFR 30-59 ml/min ([facility]) 05/13/2022 Jose Bullard MD No Hypertension, essential 12/20/2018 Podlogar, 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 No GERD without esophagitis 12/20/2018 Podlogar, 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 No Hyperlipidemia, mixed 12/20/2018 Podlogar, TODD Champion.CLAIR No Abnormal glucose tolerance test (GTT) 11/17/2023 Tiffanie Burks MA 03/22/2024 Jose Bullard MD Non-smoker 11/17/2023 Tiffanie Burks MA 03/22/2024 Jose Bullard MD Shortness of breath at rest 11/17/2023 Tiffanie Burks MA 03/22/2024 Jose Bullard MD Overview Signed 11/17/2023 3:48 PM by Tiffanie Burks MA Comment on above: awaiting pfts if negative send to cardio Suprapubic pain 11/17/2023 Tiffanie Burks MA 03/22/2024 Jose Bullard MD Overview Signed 11/17/2023 3:48 PM by Tiffanie Burks MA Comment on above: if urine negative do pelvic us Swelling of extremity 11/17/2023 Tiffanie Burks MA 03/22/2024 Jose Bullard MD MEDICATIONS Current Outpatient Medications Medication Sig Dispense Refill calcium phosphate dibas/vit D3 (VITAMIN D, WITH CALCIUM, ORAL) Take by mouth. benazepril (LOTENSIN) 20 mg tablet Take 1 tablet by mouth once daily. 30 tablet 5 hydroCHLOROthiazide 25 mg tablet Take 1 tablet by mouth once daily. 30 tablet 5 metFORMIN (GLUCOPHAGE) 500 mg tablet Take 1 tablet by mouth daily with breakfast. 30 tablet 5 rosuvastatin (CRESTOR) 5 mg tablet Take 1 tablet by mouth once daily. 30 tab (more content not included)... Normal [facility] CNCOon 06-12-2024 CNCO HNO ID: [id number] Author: COORDINATOR, MAMMOGRAPHY, ? Service: ? Author Type: Physician Type: Letter Filed: 06/12/2024 07:54 Note Text: June 12, 2024 PID: [id number] Susan Bobby [address] [place] [address] Dear Ms. Bobby, We are pleased to inform you that the results of your recent breast imaging exam on 06/11/2024 are normal. Breast tissue can be either dense or not dense. Dense tissue makes it harder to find breast cancer on a mammogram and also raises the risk of developing breast cancer. Your breast tissue is not dense. Talk to your healthcare provider about breast density, risks for breast cancer, and your individual situation. Early detection of cancer is very important. We also understand recommendations regarding breast cancer screening are controversial. Please discuss with your primary care provider which strategy is best for you and whether a mammogram is right for you. Your imaging studies and report will be kept on file at [facility] as part of your permanent medical record and are available for your continuing care. Thank you for allowing us to help in meeting your health care needs. Sincerely, Dr. Najera Interpreting Radiologist [facility] (Normal over 40) Normal [facility] SCREENINGon 06-11-2024 [facility] SCREENING * * *Final Report* * * DATE OF EXAM: Jun 11 2024 3:41PM W 0581 - [facility] SCREENING / PROCEDURE REASON: Encounter for screening mammogram for breast cancer * * * * Physician Interpretation * * * * RESULT: #[id number] - [facility] SCREENING BILATERAL DIGITAL SCREENING MAMMOGRAM WITH CAD: 06/11/2024 HISTORY: Encounter For Screening Mammogram For Breast Cancer / Screening Mammogram-Patient reports NO symptoms. /priors available for comparison. RESULT: TECHNIQUE: The study was acquired using full field digital technology and interpreted from soft copy. Current study was also evaluated with a Computer Aided Detection (CAD). Comparison is made to exams dated: 06/09/2023 mammogram, 04/29/2022 mammogram, 07/23/2020 mammogram - [facility], and 01/21/2019 mammogram - [facility]. There are scattered areas of fibroglandular density. No significant masses, calcifications, or other findings are seen in either breast. There has been no significant interval change. IMPRESSION: NEGATIVE There is no mammographic evidence of malignancy. A 1 year screening mammogram is recommended. Kip Najera M.D. cci/penrad:06/12/2024 07:54:39 Construction Engineer(s): RT Dick(R)(M), [facility] letter sent: Normal over 40 Mammogram BI-RADS: Category 1: Negative Multiple national specialty organizations have released breast cancer screening guidelines for women at average risk for developing breast cancer - guidelines that are based on both evidence and opinion, yet differ on when to start and how often to screen for breast cancer. With representation from Breast Imaging, Internal Medicine, Women's Health, Family Medicine, and Medical/Surgical Oncology, the [facility] has carefully reviewed the data and reached the following consensus: 1) All women should engage in shared decision-making with their providers to decide when to start and how often to screen; 2) All women should have the opportunity to start screening mammography at age 40; 3) For women ages 45-55, we recommend annual screening mammograms; 4) For women ages 55 and over, we support both the transition from an annual to a biennial interval if this aligns more with patient's values and preferences, or continuation with annual screening; 5) All women should discuss with their providers when to stop screening mammograms. Physical Testing Supervisor: Krista Transcribe Date/Time: Jun 11 2024 3:27P Dictated by: KIP NAJERA MD This examination was interpreted and the report reviewed and electronically signed by: KIP NAJERA MD on Jun 12 2024 7:54AM EST [id number] Normal [facility] CNOVon 06-05-2024 CNOV Office Visit (HORTENCIA ) ----- SUSAN BOBBY ([id number]) 1960 F Date Time Provider Department 06/05/24 1:00 PM MELANY KUO During your visit today, we recorded the following information about you: Pulse Respiration Blood pressure 48/minute 16/minute 104/62 Melany Kuo APRN.[employer] 06/05/2024 1:45 PM Signed This is a 64 year old female who presents today with: Patient presents with: ED Follow-up: [facility] ER 06/04 dx: abd pain HISTORY OF PRESENT ILLNESS: Susan Mariig is a 64 year old female. Patient presents with: ED Follow-up: [facility] ER 06/04 dx: abd pain Patient presents today for emergency room follow-up. She went to the emergency room on 06/04/2014 with complaints of abdominal pain and vomiting. She endorsed pain in the left flank periumbilical region beginning the previous night. No diarrhea. No urinary symptoms. She had been seen in the emergency room a little over a month ago with similar symptoms and a negative evaluation. No fever. Labs in the emergency room are stable. Potassium was [address] of the abdomen did demonstrated free fluid in the pelvis which is not a new finding. There were nonobstructing renal calculi noted. Patient received IV fluids, Zofran, morphine, and Toradol in the emergency room with improvement. Pt presents that she left work after 1 hour. Refers that she tried a hot shower, but her pain continued. Describes pain in the epigastric area. Vomited three times at work and it was bile in nature.vomited two more times at home. No constipation. Stools a little looser than normal, but not diarrhea. She was sweating a lot at work, but unknown fever/chills. Takes pantoprazole every other day which controlls GERD. She is feeling better today and was able to tolerate soup without problems. Last colonoscopy: 2022. She reports that she had an EGD in the past, but many years ago. S/p jimmy. S/p CASSANDRA w/ BSO. PAST MEDICAL HISTORY: PAST MEDICAL HISTORY No date: Acute gastritis No date: DM (diabetes mellitus) (HCC) No date: GERD (gastroesophageal reflux disease) No date: Hiatal hernia No date: HLD (hyperlipidemia) No date: HTN (hypertension) PAST SURGICAL HISTORY No date: CHOLECYSTECTOMY; N/A Comment: done when she was 23 01/13/2023: COLONOSCOPY No date: EGD W/O [facility] SPEC VARICIES INJ Comment: unsure of year 05/19/2022: EGD W/O [facility] SPEC VARICIES INJ Comment: 10/2017: TOTAL ABDOMINAL HYSTERECT W/WO RMVL TUBE OVARY; N/A Comment: for abnormal bleeding. no cancer No date: VAGINAL HYSTERECTOMY ALLERGIES Patient has no known allergies. MEDICATIONS Current Outpatient Medications Medication Sig benazepril (LOTENSIN) 20 mg tablet Take 1 tablet by mouth once daily. hydroCHLOROthiazide 25 mg tablet Take 1 tablet by mouth once daily. metFORMIN (GLUCOPHAGE) 500 mg tablet Take 1 tablet by mouth daily with breakfast. pantoprazole DR (PROTONIX) 40 mg tablet Take 1 tablet by mouth every other day. rosuvastatin (CRESTOR) 5 mg tablet Take 1 tablet by mouth once daily. multivitamin (DAILY VITAMIN ORAL) Take by mouth once daily. blood sugar diagnostic (BLOOD GLUCOSE TEST) test strip Test blood sugar(s) 1 times daily. Dx: Type 2 DM - Controlled E11.9 Insulin: No No current facility-administered medications for this visit. FAMILY HISTORY Problem Relation Age of Onset Dementia Father Social History Tobacco Use Smoking status: Never Smokeless tobacco: Never Vaping Use Vaping Use: Never used Substance Use Topics Alcohol use: No Drug use: No EXAM: BP 104/62 Pulse (!) 48 Resp 16 SpO2 98% PHYSICAL EXAM: General Appearance: Well appearing, alert, in no acute distress, well-hydrated, well nourished.. Skin: Skin color, texture, turgor normal, no suspicious rashes or lesions. Head: Normocephalic, no masses, lesions, tenderness or abnormalities. Eyes: Anicteric sclera. Extraocular movements are intact. . Ears: External ears normal, canals clear, Normal TMs bilaterally. Oropharynx: Lips, mucosa, and tongue normal, teeth and gums normal, oropharynx normal. Neck: Supple, no adenopathy; thyroid symmetric, normal size, no bruits. Lungs: Lungs clear to auscultation. No wheezing, rhonchi, rales.. Heart: RRR without murmur, gallop, or rubs. No ectopy. Abdomen: Abdomen soft, some generalized tenderness in the right abdomen and epigastric area. Bowel sounds normal. No masses, organomegaly. Extremities: No deformities, edema, skin discoloration, clubbing or cyanosis. Good capillary refill. Neurologic: Gait normal. ASSESSMENT/PLAN: 1. Gastritis without bleeding, unspecified chronicity, unspecified gastritis type - ICD9: 535.50, ICD10: K29.70 Improved today. Continue PPI. Referral to GI for further eval/treat. Notify providers of any new/worsening symptoms. - CONSULT TO GASTROENTEROLOGY Discussed treatment plan and (more content not included)... Normal [facility] Abdomen/Pelvis without Conto n 06-04-2024 Abdomen/Pelvis without Cont [facility] [address] [place] [address] Abdomen/Pelvis without Cont MR#: [id number] Acct: [id number] Name: SUSAN BOBBY Rep #: [id number] : 1960 F 64 From: Deny plunkett MD PCP: Dr. Jose Bullard MD Status: REG ER Study: Abdomen/Pelvis without Cont Date of Exam: 05/23 01/13 Exam# [id number] Ordering Dr: Chucho Moore DO [id number] STUDY: CT ABDOMEN AND PELVIS WITHOUT CONTRAST REASON FOR EXAM: Female, 64 years old. Kidney Stone RADIATION DOSAGE (If Supplied By Facility): CTDIvol = ( 9.18 ) mGy, DLP = ( 463.05 ) mGycm TECHNIQUE: Transaxial images were obtained from the dome of the diaphragm to the symphysis pubis without oral contrast, and without intravenous contrast. Sagittal and coronal images were reconstructed. Individualized dose optimization techniques were used for this CT. COMPARISON: Comparison is made with prior study dated April 16, 2024. FINDINGS: The visualized lung bases are unremarkable. The visualized portions of the heart are within normal limits. Normal liver. There are surgical clips in the gallbladder fossa consistent with a prior cholecystectomy. Normal spleen. Normal pancreas. Normal bilateral adrenal glands. Tiny bilateral nonobstructive intrarenal calculi. No evidence of hydronephrosis. There is a small hiatal hernia. Normal small intestine. Normal colon. The appendix is visualized and appears normal. There is atherosclerotic calcification of the abdominal aorta, without a demonstrated aneurysm. Normal inferior vena cava. Normal retroperitoneum. Normal urinary bladder. Small amount of ascitic fluid is once again seen in the pelvis. Findings suggestive of prior hysterectomy. Normal abdominal wall. There are mild degenerative changes of the visualized lumbar spine. CT/Abdomen/Pelvis without Cont IMPRESSION: Tiny bilateral nonobstructive intrarenal calculi. No ureteral obstruction is seen. Small amount of ascitic fluid was again seen in the pelvis. Electronically Signed: Deny Hernandez MD at 10:20 EDT , CC: Dr. Chucho Moore DO; Dr. Jose Bullard MD Physical Testing Supervisor: Signed Normal [facility] Basic Metabolic Profile (BMP )on 06-04-2024 BUN/CRE 9.1 RATIO Low 10-20 [facility] Comment on above: Performed By: #### L 500.2500, L100.0100 #### [facility] [address] [place], [address] CA,Total 9.4 mg/dL Normal 8.5-10.1 [facility] Comment on above: Performed By: #### L 500.2500, L100.0100 #### [facility] [address] [place], [address] Chloride [Moles/Vol] 107 mmol/L Normal 98-107 [facility] Comment on above: Performed By: #### L 500.2500, L100.0100 #### [facility] [address] [place], [address] CO2 [Moles/Vol] 27.0 mmol/L Normal 21.0-32.0 [facility] Comment on above: Performed By: #### L 500.2500, L100.0100 #### [facility] [address] [place], [address] Creatinine [Mass/Vol] 1.21 mg/dL High 0.55-1.02 [facility] Comment on above: Result Comment: The validity of the calculated GFR GFRAA in patients over 70 years has not been determined. Clinical correlation is essential. Performed By: #### L 500.2500, L100.0100 #### [facility] [address] [place], [address] ECRCL 44.29 ml/min Normal [facility] Comment on above: Performed By: #### L 500.2500, L100.0100 #### [facility] [address] [facility] [place], [address] EST GFR - AA 58 mL/min Low >60 [facility] Comment on above: Result Comment: Afri can [place] GFR Calc Performed By: #### L 500.2500, L100.0100 #### [facility] [address] [place], [address] GAP 7 Normal 5-15 [facility] Comment on above: Performed By: #### L 500.2500, L100.0100 #### [facility] [address] [place], [address] GFR/1.73 sq M.predicted among non-blacks MDRD (S/P/Bld) [Vol rate/Area] 48 mL/min/{1.73_m2} Low >60 [facility] Comment on above: Result Comment: Non- GFR Calc Performed By: #### L 500.2500, L100.0100 #### [facility] [address] [place], [address] Glucose [Mass/Vol] 108 mg/dL High 74-106 [facility] Comment on above: Result Comment: Fast ing Glucose result from 100 to 125 mg/dL suggests IMPAIRED HOMEOSTASIS per A.D.A. criteria. Performed By: #### L 500.2500, L100.0100 #### [facility] [address] [place], [address] Potassium [Moles/Vol] 3.4 mmol/L Low 3.5-5.1 [facility] Comment on above: Performed By: #### L 500.2500, L100.0100 #### [facility] [address] [place], [address] Sodium [Moles/Vol] 141 mmol/L Normal 136-145 [facility] Comment on above: Performed By: #### L 500.2500, L100.0100 #### [facility] [address] [place], [address] Urea nitrogen [Mass/Vol] 11 mg/dL Normal 7-18 [facility] Comment on above: Performed By: #### L 500.2500, L100.0100 #### [facility] [address] [place], [address] CBC W/Diff, Automatedon 08-2023 Absolute Lymph 0.75 X10 3/uL Low 0.83-4.51 [facility] Comment on above: Performed By: #### L 500.2500, L100.0100 #### [facility] [address] [place], [address] Absolute Neut 9.2 X10 3/uL High 2.0-7.7 [facility] Comment on above: Performed By: #### L 500.2500, L100.0100 #### [facility] [address] [place], [address] Basophils/100 WBC (Bld) 0.3 % Normal 0-1 [facility] Comment on above: Performed By: #### L 500.2500, L100.0100 #### [facility] [address] [place], [address] Eosinophils/100 WBC (Bld) 0.1 % Normal 0-5 [facility] Comment on above: Performed By: #### L 500.2500, L100.0100 #### [facility] [address] [place], [address] Erythrocyte distribution width (RBC) [Ratio] 13.7 % Normal 11.6-14.6 [facility] Comment on above: Performed By: #### L 500.2500, L100.0100 #### [facility] [address] [place], [address] Hematocrit (Bld) [Volume fraction] 39.1 % Normal 37-47 [facility] Comment on above: Performed By: #### L 500.2500, L100.0100 #### [facility] [address] [place], [address] Hemoglobin (Bld) [Mass/Vol] 12.9 g/dL Normal 12.0-15.0 [facility] Comment on above: Performed By: #### L 500.2500, L100.0100 #### [facility] [address] [place], [address] IG% 0.500 Normal 0.0-0.9 [facility] Comment on above: Result Comment: IG% - Immature Granulocytes (promyelocytes, myelocytes and metamyelocytes) > 1% indicates that a LEFT SHIFT is Present. Performed By: #### L 500.2500, L100.0100 #### [facility] [address] [place], [address] Lymphocytes/100 WBC (Bld) 7.2 % Low 19-41 [facility] Comment on above: Performed By: #### L 500.2500, L100.0100 #### [facility] [address] [place], [address] MCH (RBC) [Entitic mass] 28.9 pg Normal 27.0-32.0 [facility] Comment on above: Performed By: #### L 500.2500, L100.0100 #### [facility] [address] [place], [address] MCHC (RBC) [Mass/Vol] 33.0 g/dL Normal 32-36 [facility] Comment on above: Performed By: #### L 500.2500, L100.0100 #### [facility] [address] [place], [address] MCV (RBC) [Entitic vol] 87.5 fL Normal 81-99 [facility] Comment on above: Performed By: #### L 500.2500, L100.0100 #### [facility] [address] [place], [address] Monocytes/100 WBC (Bld) 3.8 % Normal 0-10 [facility] Comment on above: Performed By: #### L 500.2500, L100.0100 #### [facility] [address] [place], [address] Neutrophils/100 WBC (Bld) 88.1 % High 47-70 [facility] Comment on above: Performed By: #### L 500.2500, L100.0100 #### [facility] [address] [place], [address] Nucleated RBC (Bld) [#/Vol] 0 10*3/uL Normal 0-5 [facility] Comment on above: Performed By: #### L 500.2500, L100.0100 #### [facility] [address] [place], [address] Platelet mean volume (Bld) [Entitic vol] 11.0 fL Normal 6.2-12.0 [facility] Comment on above: Performed By: #### L 500.2500, L100.0100 #### [facility] [address] [place], [address] Platelets (Bld) [#/Vol] 258 10*3/uL Normal 150-450 [facility] Comment on above: Performed By: #### L 500.2500, L100.0100 #### [facility] [address] [place], [address] RBC (Bld) [#/Vol] 4.47 10*6/uL Normal 4.2-5.4 [facility] Comment on above: Performed By: #### L 500.2500, L100.0100 #### [facility] [address] [place], [address] RDW SD 43.5 fl Normal 35.1-43.9 [facility] Comment on above: Performed By: #### L 500.2500, L100.0100 #### [facility] [address] [place], [address] WBC (Bld) [#/Vol] 10.4 10*3/uL Normal 4.4-11.0 [facility] Comment on above: Performed By: #### L 500.2500, L100.0100 #### [facility] [address] [place], [address] CNOVon 06-04-2024 CNOV Office Visit (UCWSTR ) ----- SUSAN BOBBY ([id number]) 1960 F Date Time Provider Department 06/04/24 9:00 AM KYLEIGH MATSON [facility] During your visit today, we recorded the following information about you: Kyleigh Matson APRN.[employer] 06/04/2024 9:04 AM Signed Called to triage by PSS staff. 64 year old female with PMH GERD, DM, HTN, and hyperlipdemia presents for abdominal pain. Acute onset yesterday evening @ 2330 +RUQ and RLQ abdominal pain + N/V/D Patient brings in a cup of yellow bile Pain 10/10 Tears in eyes Given severity of pain and limitations of express care (no IV, no IV analgesics, no imaging) referred to ED Declines EMS Allergies As of Date: 06/04/2024 (No Known Allergies) Date Reviewed: 11/17/2023 Reviewed by: Tiffanie Burks MA - Fully Assessed Reason for Visit: Abdominal Pain [1] Primary Visit Diagnosis:Abdominal pain, unspecified abdominal location [R10.9] Other Visit Diagnosis:Nausea vomiting and diarrhea [R11.2, R19.7] Prescriptions as of 06/04/2024 - benazepril (LOTENSIN) 20 mg tablet Take 1 tablet by mouth once daily. - hydroCHLOROthiazide 25 mg tablet Take 1 tablet by mouth once daily. - metFORMIN (GLUCOPHAGE) 500 mg tablet Take 1 tablet by mouth daily with breakfast. - pantoprazole DR (PROTONIX) 40 mg tablet Take 1 tablet by mouth every other day. - rosuvastatin (CRESTOR) 5 mg tablet Take 1 tablet by mouth once daily. - multivitamin (DAILY VITAMIN ORAL) Take by mouth once daily. - blood sugar diagnostic (BLOOD GLUCOSE TEST) test strip Test blood sugar(s) 1 times daily. Dx: Type 2 DM - Controlled E11.9 Insulin: No Problem List As Of Date 06/04/2024 Noted Resolved Hypertension, essential [I10] 12/20/2018 GERD without esophagitis [K21.9] 12/20/2018 Hyperlipidemia, mixed [E78.2] 12/20/2018 CKD (chronic kidney disease) stage 3, GFR 30-59*05/13/2022 Obesity, Class I, BMI 30-34.9 [E66.9] 05/19/2022 Controlled type 2 diabetes mellitus without com*05/10/2023 Abnormal glucose tolerance test (GTT) [R73.09] 11/17/2023 03/22/2024 History of tubal ligation [Z98.51] 11/17/2023 Iron deficiency [E61.1] 11/17/2023 Menorrhagia [N92.0] 11/17/2023 Non-smoker [Z78.9] 11/17/2023 03/22/2024 Onychomycosis [B35.1] 11/17/2023 Osteopenia [M85.80] 11/17/2023 Postmenopausal bleeding [N95.0] 11/17/2023 Shortness of breath at rest [R06.02] 11/17/2023 03/22/2024 Sleep disorder [G47.9] 11/17/2023 Stress incontinence in female [N39.3] 11/17/2023 Suprapubic pain [R10.2] 11/17/2023 03/22/2024 Swelling of extremity [M79.89] 11/17/2023 03/22/2024 Encounter Status:Closed by KYLEIGH MATSON on 06/04/24 Normal [facility] Emergency Department Summary on 06-04-2024 Emergency Department Summary [facility] Records Department [address] [place] [address] Emergency Department Summary 06/04/24 MR#: [id number] Acct: [id number] Name: SUSAN BOBBY Rep #: [id number] : 1960 64 From: Chucho Moore DO PCP: Dr. Jose Bullard MD Status:DEP ER Location: ED HPI History of Present Illness Chief Complaint: Abd Pain Informant: patient Narrative Narrative: 64-year-old female presenting to the emergency room chief complaint of abdominal pain and vomiting. Patient notes pain in the left flank periumbilical region beginning last night into today. She has been experiencing vomiting. No diarrhea. No urinary symptoms. She was seen in the emergency department a little over a month ago with similar symptoms had negative evaluation. She states she followed up with primary care. Patient had to leave work today due to her symptoms. No reported fever. PFSH PFSH Home Medications ???Medication ???Instructions ???Recorded ???Last Taken ???Type metformin 500 mg tablet 500 mg PO 04/16/24 Unknown History rosuvastatin 5 mg tablet 5 mg PO DAILY 04/16/24 Unknown History hydrocodone-acetaminophen 5-325mg 1 tab PO Q6H PRN PRN Pain 3 days 06/04/24 Unknown Rx 5mg-325mg #10 TABLETS ondansetron 4 mg disintegrating 4 mg PO Q6H PRN PRN Nausea #10 tabs 06/04/24 Unknown Rx tablet Allergy/AdvReac Type Severity Reaction Status Date / Time No Known Allergies Allergy Verified 06/04/24 09:08 Surgical History Hx of cholecystectomy Social History Smoking Status: Never smoker ROS ROS ED Constitutional Constitutional ED: Denies chills, fever(s) or weight loss Eyes Eyes: Denies change in vision or diplopia ENT ENT ED: Denies ear pain, rhinorrhea or sore throat Cardiovascular Cardiovascular: Denies chest pain, orthopnea, palpitations or racing heartbeat Respiratory/Chest Respiratory/Chest: Denies cough, dyspnea or orthopnea Gastrointestinal Gastrointestinal: Reports abdominal pain, nausea and vomiting; Denies diarrhea Genitourinary Genitourinary ED: Denies dysuria, hematuria or urinary frequency Musculoskeletal Musculoskeletal: Reports other Details: Left flank pain ; Denies arthralgias or myalgias Integumentary Denies abscess or rash Neurologic Neurologic: Denies headache(s) or weakness Psychiatric Psychiatric: Denies anxiety, depression, suicidal ideation or suicidal thoughts Endocrine Endocrinology: Denies polydipsia, polyphagia or polyuria Allergic/Immunologic Allergic/Immunologic ED: Denies mouth swelling, tongue swelling or urticaria EXAM Physical Exam Const Vital Signs: 06/04/24 09:06 06/04/24 09:07 06/04/24 11:00 Temperature 97.5 F L 97.5 F L 97.9 F Temperature Source Temporal Temporal Temporal Pulse Rate 89 89 88 Respiratory Rate 17 17 18 Blood Pressure 149/92 H 149/92 H 111/68 Blood Pressure Mean 111 111 82 Pulse Ox 96 96 98 Oxygen Delivery Method Room Air Room Air Room Air Positive well nourished and well developed General Appearance ED: well developed HEENT Reports normocephalic, head/scalp atraumatic and moist mucous membranes Eyes PERRL and EOMs intact bilaterally Neck no lymphadenopathy, supple and no JVD Resp normal respiratory effort and clear to auscultation bilaterally Cardio regular rate, regular rhythm and no murmurs GI Inspection: Negative for abdominal distention Auscultation: normoactive bowel sounds Palpation: soft and tender periumbilical Back/Spine no CVA tenderness and normal ROM Extremity normal to inspection General Extremety ED: Negative for edema General Extremity: Negative for edema Neuro oriented x3 and CN's II-XII intact bilaterally Sensorium / Orientation: alert Motor Exam: strength 5/5 throughout Psych mental status grossly normal Mood Affect: Negative for depressed or tearful Skin no rashes or lesions noted and no wounds MDM MDM MDM Narrative Medical decision making narrative: Differential diagnosis includes but not limited to enteritis gastroenteritis volvulus small bowel obstruction ureterolithiasis UTI diverticulitis colitis White count 10.4 hemoglobin is 12.9 platelet count of 258. Creatinine 1.21 with a BUN of 11 CO2 27 anion gap of 7 total bilirubin 1.5 direct bilirubin 0.28. Normal transaminases and alkaline phosphatase. Normal lipase. Urinalysis essentially normal. CT of the abdomen pelvis demonstrates of free fluid in the pelvis which is not a new finding. Nonobstructive renal calculi noted. Patient received IV fluids Zofran morphine and Toradol with improvement. This point patient will be discharged home with pain and nausea medication. She was given return instructions. Return 24 hours if w (more content not included)... Normal [facility] Lipaseon 06-04-2024 Lipase [Catalytic activity/Vol] 28 U/L Normal 13-75 [facility] Comment on above: Result Comment: Oma loco note: LIPASE revised reference range effective 23. New Lipase methodology. Expected to produce lower values than the previous assay method. NEW Reference Range: 13 - 75 U/L Performed By: #### L 400.0001 #### [facility] [address] [place], [address] Liver Profileon 06-04-2024 Albumin [Mass/Vol] 3.7 g/dL Normal 3.2-5.0 [facility] Comment on above: Performed By: #### L 400.0001 #### [facility] [address] [place], [address] ALK P 68 U/L Normal 45-117 [facility] Comment on above: Performed By: #### L 400.0001 #### [facility] [address] [place], [address] ALT [Catalytic activity/Vol] 16 U/L Normal 13-56 [facility] Comment on above: Performed By: #### L 400.0001 #### [facility] [address] [place], [address] AST [Catalytic activity/Vol] 18 U/L Normal 15-37 [facility] Comment on above: Performed By: #### L 400.0001 #### [facility] [address] [place], [address] Bilirubin [Mass/Vol] 1.50 mg/dL High 0.20-1.00 [facility] Comment on above: Result Comment: For patients on eltrombopag therapy, use of Dimension [place] TBIL is not recommended. Performed By: #### L 400.0001 #### [facility] [address] [place], [address] Bilirubin.direct [Mass/Vol] 0.28 mg/dL Normal 0.00-0.30 [facility] Comment on above: Performed By: #### L 400.0001 #### [facility] [address] [place], [address] Globulin (S) [Mass/Vol] 4.2 g/dL Normal 2.2-4.2 [facility] Comment on above: Performed By: #### L 400.0001 #### [facility] [address] [place], [address] T PROT 7.9 g/dL Normal 6.4-8.2 [facility] Comment on above: Performed By: #### L 400.0001 #### [facility] [address] [place], [address] Urinalysis, Completeon 06-04 CAST,HYALINE 0-5 SEEN Normal 0-5 [facility] Comment on above: Order Comment: COLLE CTOR TO SPECIFY Performed By: #### L 400.0001 #### [facility] [address] [place], [address] EPI,SQUAMOUS 0-5 SEEN Normal 5-10 [facility] Comment on above: Order Comment: COLLE CTOR TO SPECIFY Performed By: #### L 400.0001 #### [facility] [address] [place], [address] RBC 0-5 SEEN Normal 0-5 [facility] Comment on above: Order Comment: COLLE CTOR TO SPECIFY Performed By: #### L 400.0001 #### [facility] [address] [place], [address] WBC 0-5 SEEN Normal 0-5 [facility] Comment on above: Order Comment: WILBERT CTOR TO SPECIFY Performed By: #### L 400.0001 #### [facility] [address] [place], [address] BACTERIA 0 SEEN Normal None Seen [facility] Comment on above: Order Comment: WILBERT CTOR TO SPECIFY Performed By: #### L 400.0001 #### [facility] [address] [facility] [place], [address] Mucus Ql (Urine sed) 0 SEEN Normal [facility] Comment on above: Order Comment: WILBERT CTOR TO SPECIFY Performed By: #### L 400.0001 #### [facility] [address] [place], [address] Abdomen/Pelvis W IV Cont ONL Yon 04-16-2024 Abdomen/Pelvis W IV Cont ONLY [facility] [address] [place] [address] Abdomen/Pelvis W IV Cont ONLY MR#: [id number] Acct: [id number] Name: SUSAN BOBBY Rep #: [id number] : 1960 F 64 From: Bj Campa MD PCP: Dr. Jose Bullard MD Status: REG ER Study: Abdomen/Pelvis W IV Cont ONLY Date of Exam: Exam# [id number] Ordering Dr: Chucho Moore DO [id number] STUDY: CT ABDOMEN AND PELVIS WITH CONTRAST REASON FOR EXAM: Female, 64 years old. Abdominal pain. Vomiting. RADIATION DOSAGE (If Supplied By Facility): CTDIvol = ( 18.06 ) mGy, DLP = ( 933.30 ) mGycm TECHNIQUE: Transaxial images were obtained through the abdomen and pelvis without oral contrast. 100 ml of 100mL [id number]-300 contrast was administered. Sagittal and coronal images were reconstructed. Individualized dose optimization techniques were used for this CT. COMPARISON: No relevant prior comparison study available FINDINGS: LOWER THORAX: The visualized lung bases are clear. The visualized portions of the heart and pericardium are within normal limits. GALLBLADDER / BILE DUCTS: The patient is status post cholecystectomy. There is no intrahepatic biliary duct dilatation. The common bile duct is normal in caliber. There are no calcified ductal stones. LIVER: The liver is within normal limits. There are no suspicious hepatic lesions. SPLEEN: The spleen is normal in size. PANCREAS: The pancreas is within normal limits. ADRENAL GLANDS: The adrenal glands are within normal limits. KIDNEYS / BLADDER: There are no renal or ureteral stones. There is no hydronephrosis. There are no focal renal lesions. The urinary bladder is partially distended and appears grossly unremarkable. STOMACH / BOWEL: There is a small hiatal hernia. There is no bowel obstruction or inflammation. The appendix is visualized and appears normal. PERITONEUM/RETROPERITONEU M: There is a small amount of free fluid. There is no free air or fluid collection. There is no abnormal soft tissue mass identified. There is no abdominal or pelvic lymphadenopathy. VESSELS: The aorta is normal in caliber. The IVC is unremarkable. BONES: There are no destructive osseous lesions. SOFT TISSUES: The visualized soft tissues are within normal limits. CT/Abdomen/Pelvis W IV Cont ONLY IMPRESSION: Small amount of free fluid. No free air or fluid collection. No bowel obstruction or inflammation. Normal appendix. Small hiatal hernia. Normal kidneys. No hydronephrosis. Electronically Signed: Bj Campa MD at 16:16 EDT , CC: Dr. Chucho Moore, DO; Dr. Jose Bullard MD Physical Testing Supervisor: Signed Normal [facility] Bilirubin, Directon 04-16-20 24 Bilirubin.direct [Mass/Vol] 0.24 mg/dL Normal 0.00-0.30 [facility] Comment on above: Performed By: #### L 501.3510, L501.2450 ####[facility] [address] [place], [address] CBC W/Diff, Automatedon 06-2 -2023 Absolute Lymph 0.97 X10 3/uL Normal 0.83-4.51 [facility] Comment on above: Performed By: #### L 500.4050, L100.0100 ####[facility] [address] [place], [address] Absolute Neut 10.0 X10 3/uL High 2.0-7.7 [facility] Comment on above: Performed By: #### L 500.4050, L100.0100 ####[facility] [address] [place], [address] Basophils/100 WBC (Bld) 0.3 % Normal 0-1 [facility] Comment on above: Performed By: #### L 500.4050, L100.0100 ####[facility] [address] [place], [address] Eosinophils/100 WBC (Bld) 0.0 % Normal 0-5 [facility] Comment on above: Performed By: #### L 500.4050, L100.0100 ####[facility] [address] [place], [address] Erythrocyte distribution width (RBC) [Ratio] 13.8 % Normal 11.6-14.6 [facility] Comment on above: Performed By: #### L 500.4050, L100.0100 ####[facility] [address] [place], [address] Hematocrit (Bld) [Volume fraction] 41.3 % Normal 37-47 [facility] Comment on above: Performed By: #### L 500.4050, L100.0100 ####[facility] [address] [place], [address] Hemoglobin (Bld) [Mass/Vol] 13.3 g/dL Normal 12.0-15.0 [facility] Comment on above: Performed By: #### L 500.4050, L100.0100 ####[facility] [address] [place], [address] IG% 0.300 Normal 0.0-0.9 [facility] Comment on above: Result Comment: IG% - Immature Granulocytes (promyelocytes, myelocytes and metamyelocytes) > 1% indicates that a LEFT SHIFT is Present. Performed By: #### L 500.4050, L100.0100 ####[facility] [address] [place], [address] Lymphocytes/100 WBC (Bld) 8.4 % Low 19-41 [facility] Comment on above: Performed By: #### L 500.4050, L100.0100 ####[facility] [address] [place], [address] MCH (RBC) [Entitic mass] 28.4 pg Normal 27.0-32.0 [facility] Comment on above: Performed By: #### L 500.4050, L100.0100 ####[facility] [address] [place], [address] MCHC (RBC) [Mass/Vol] 32.2 g/dL Normal 32-36 [facility] Comment on above: Performed By: #### L 500.4050, L100.0100 ####[facility] [address] [place], [address] MCV (RBC) [Entitic vol] 88.2 fL Normal 81-99 [facility] Comment on above: Performed By: #### L 500.4050, L100.0100 ####[facility] [address] [place], [address] Monocytes/100 WBC (Bld) 4.6 % Normal 0-10 [facility] Comment on above: Performed By: #### L 500.4050, L100.0100 ####[facility] [address] [place], [address] Neutrophils/100 WBC (Bld) 86.4 % High 47-70 [facility] Comment on above: Performed By: #### L 500.4050, L100.0100 ####[facility] [address] [place], [address] Nucleated RBC (Bld) [#/Vol] 0 10*3/uL Normal 0-5 [facility] Comment on above: Performed By: #### L 500.4050, L100.0100 ####[facility] [address] [place], [address] Platelet mean volume (Bld) [Entitic vol] 11.2 fL Normal 6.2-12.0 [facility] Comment on above: Performed By: #### L 500.4050, L100.0100 ####[facility] [address] [place], [address] Platelets (Bld) [#/Vol] 255 10*3/uL Normal 150-450 [facility] Comment on above: Performed By: #### L 500.4050, L100.0100 ####[facility] [address] [place], [address] RBC (Bld) [#/Vol] 4.68 10*6/uL Normal 4.2-5.4 [facility] Comment on above: Performed By: #### L 500.4050, L100.0100 ####[facility] [address] [place], [address] RDW SD 44.2 fl High 35.1-43.9 [facility] Comment on above: Performed By: #### L 500.4050, L100.0100 ####[facility] [address] [place], [address] WBC (Bld) [#/Vol] 11.6 10*3/uL High 4.4-11.0 [facility] Comment on above: Performed By: #### L 500.4050, L100.0100 ####[facility] [address] [place], [address] Comprehensive Metabolic Prof ilon 04-16-2024 Albumin [Mass/Vol] 3.9 g/dL Normal 3.2-5.0 [facility] Comment on above: Performed By: #### L 500.4050, L100.0100 ####[facility] [address] [place], [address] Albumin/Globulin [Mass ratio] 1.0 {ratio} Normal 0.9-2.4 [facility] Comment on above: Performed By: #### L 500.4050, L100.0100 ####[facility] [address] [place], [address] ALK P 75 U/L Normal 45-117 [facility] Comment on above: Performed By: #### L 500.4050, L100.0100 ####[facility] [address] [place], [address] ALT [Catalytic activity/Vol] 18 U/L Normal 13-56 [facility] Comment on above: Performed By: #### L 500.4050, L100.0100 ####[facility] [address] [place], [address] AST [Catalytic activity/Vol] 16 U/L Normal 15-37 [facility] Comment on above: Performed By: #### L 500.4050, L100.0100 ####[facility] [address] [place], [address] Bilirubin [Mass/Vol] 1.30 mg/dL High 0.20-1.00 [facility] Comment on above: Result Comment: For patients on eltrombopag therapy, use of Dimension [place] TBIL is not recommended. Performed By: #### L 500.4050, L100.0100 ####[facility] [address] [place], [address] BUN/CRE 9.8 RATIO Low 10-20 [facility] Comment on above: Performed By: #### L 500.4050, L100.0100 ####[facility] [address] [place], [address] CA,Total 9.7 mg/dL Normal 8.5-10.1 [facility] Comment on above: Performed By: #### L 500.4050, L100.0100 ####[facility] [address] [place], [address] Chloride [Moles/Vol] 109 mmol/L High 98-107 [facility] Comment on above: Performed By: #### L 500.4050, L100.0100 ####[facility] [address] [place], [address] CO2 [Moles/Vol] 29.0 mmol/L Normal 21.0-32.0 [facility] Comment on above: Performed By: #### L 500.4050, L100.0100 ####[facility] [address] [place], [address] Creatinine [Mass/Vol] 1.12 mg/dL High 0.55-1.02 [facility] Comment on above: Result Comment: The validity of the calculated GFR GFRAA in patients over 70 years has not been determined. Clinical correlation is essential. Performed By: #### L 500.4050, L100.0100 ####[facility] [address] [place], [address] ECRCL 48.87 ml/min Normal [facility] Comment on above: Performed By: #### L 500.4050, L100.0100 ####[facility] [address] [place], [address] EST GFR - AA 63 mL/min Normal >60 [facility] Comment on above: Result Comment: Afri can [place] GFR Calc Performed By: #### L 500.4050, L100.0100 ####[facility] [address] [place], [address] GAP 6 Normal 5-15 [facility] Comment on above: Performed By: #### L 500.4050, L100.0100 ####[facility] [address] [place], [address] GFR/1.73 sq M.predicted among non-blacks MDRD (S/P/Bld) [Vol rate/Area] 52 mL/min/{1.73_m2} Low >60 [facility] Comment on above: Result Comment: Non- GFR Calc Performed By: #### L 500.4050, L100.0100 ####[facility] [address] [place], [address] Globulin (S) [Mass/Vol] 4.0 g/dL Normal 2.2-4.2 [facility] Comment on above: Performed By: #### L 500.4050, L100.0100 ####[facility] [address] [place], [address] Glucose [Mass/Vol] 111 mg/dL High 74-106 [facility] Comment on above: Result Comment: Fast ing Glucose result from 100 to 125 mg/dL suggests IMPAIRED HOMEOSTASIS per A.D.A. criteria. Performed By: #### L 500.4050, L100.0100 ####[facility] [address] [place], [address] Potassium [Moles/Vol] 3.9 mmol/L Normal 3.5-5.1 [facility] Comment on above: Performed By: #### L 500.4050, L100.0100 ####[facility] [address] [place], [address] Sodium [Moles/Vol] 144 mmol/L Normal 136-145 [facility] Comment on above: Performed By: #### L 500.4050, L100.0100 ####[facility] [address] [place], [address] T PROT 7.9 g/dL Normal 6.4-8.2 [facility] Comment on above: Performed By: #### L 500.4050, L100.0100 ####[facility] [address] [place], [address] Urea nitrogen [Mass/Vol] 11 mg/dL Normal 7-18 [facility] Comment on above: Performed By: #### L 500.4050, L100.0100 ####[facility] [address] [place], [address] Emergency Department Summary on 04-16-2024 Emergency Department Summary [facility] Records Department [address] [place] [address] Emergency Department Summary 04/16/24 MR#: [id number] Acct: [id number] Name: SUSAN BOBBY Rep #: [id number] : 1960 64 From: Chucho Moore DO PCP: Dr. Jose Bullard MD Status:DEP ER Location: ED HPI HPI - GI History of Present Illness Chief Complaint: Abd Pain Informant: patient and spouse/S.O. Narrative Narrative: 64-year-old female presenting to the emergency room with a chief complaint of abdominal pain and vomiting. Patient states that last night around 0000 hrs. she developed a periumbilical abdominal pain. It continued to hurt and she went to work this morning. She states that after only a couple hours she needed to leave work. She subsequently has developed some vomiting. She notes the abdominal pain seems to be significantly improving at the time of the examination. She notes that it had been radiating to her back. She states that she is not feeling nauseated. She denies any fevers. She had a small bowel movement which she describes as normal this morning. No recent travel o bad food exposures. Her is not feeling ill. She notes a prior cholecystectomy. PFSH PFS Home Medications ???Medication ???Instructions ???Recorded ???Last Taken ???Type metformin 500 mg tablet 500 mg PO 04/16/24 Unknown History rosuvastatin 5 mg tablet 5 mg PO DAILY 04/16/24 Unknown History Allergy/AdvReac Type Severity Reaction Status Date / Time No Known Allergies Allergy Verified 04/16/24 13:21 Surgical History (Updated 04/16/24 @ 15:[address] Chucho Moore DO) Hx of cholecystectomy Social History Smoking Status: Never smoker ROS ROS ED Constitutional Constitutional ED: Denies chills, fever(s) or weight loss Eyes Eyes: Denies change in vision or diplopia ENT ENT ED: Denies ear pain, rhinorrhea or sore throat Cardiovascular Cardiovascular: Denies chest pain, orthopnea, palpitations or racing heartbeat Respiratory/Chest Respiratory/Chest: Denies cough, dyspnea or orthopnea Gastrointestinal Gastrointestinal: Reports abdominal pain, nausea and vomiting; Denies diarrhea Genitourinary Genitourinary ED: Denies dysuria, hematuria or urinary frequency Musculoskeletal Musculoskeletal: Reports back pain; Denies arthralgias or myalgias Integumentary Denies abscess or rash Neurologic Neurologic: Denies headache(s) or weakness Psychiatric Psychiatric: Denies anxiety, depression, suicidal ideation or suicidal thoughts Endocrine Endocrinology: Denies polydipsia, polyphagia or polyuria Allergic/Immunologic Allergic/Immunologic ED: Denies mouth swelling, tongue swelling or urticaria EXAM Physical Exam Const Vital Signs: 04/16/24 13:21 04/16/24 15:13 04/16/24 16:54 Temperature 96.9 F L Temperature Source Temporal Pulse Rate 65 81 81 Respiratory Rate 18 18 18 Blood Pressure 125/91 H 121/80 H 125/91 H Blood Pressure Mean 102 93 102 Pulse Ox 100 98 98 Oxygen Delivery Method Room Air Room Air Room Air Positive well nourished and well developed General Appearance ED: well developed and NAD HEENT Reports normocephalic, head/scalp atraumatic and moist mucous membranes Eyes PERRL and EOMs intact bilaterally Neck no lymphadenopathy, supple and no JVD Resp normal respiratory effort and clear to auscultation bilaterally Cardio regular rate, regular rhythm and no murmurs GI normal to inspection, nondistended, normoactive bowel sounds and non-tender Inspection: Negative for abdominal distention Auscultation: normoactive bowel sounds Palpation: soft Back/Spine no CVA tenderness and normal ROM Extremity normal to inspection General Extremety ED: Negative for edema General Extremity: Negative for edema Neuro oriented x3 and CN's II-XII intact bilaterally Sensorium / Orientation: alert Motor Exam: strength 5/5 throughout Psych mental status grossly normal Mood Affect: Negative for depressed or tearful Skin no rashes or lesions noted and no wounds MDM MDM MDM Narrative Medical decision making narrative: Differential diagnosis includes but not limited to viral and bacterial gastroenteritis, pancreatitis, bowel obstruction, choledocholithiasis, hepatitis, colitis, diverticulitis. White count returned slightly elevated 11.6 with no left shift. BMP shows a creatinine 1.12 glucose 111 and total bilirubin of 1.30. Lipase is normal at 29. Urinalysis shows no overt infection. CT of the abdomen pelvis with IV contrast was obtained. This shows a small amount of free fluid but otherwise no acute findings. Patient is feeling better than when she initially came in. Patient will be discharged home with instructions to monitor for new or worsening symptoms. (more content not included)... Normal [facility] Lipaseon 04-16-2024 Lipase [Catalytic activity/Vol] 29 U/L Normal 13-75 [facility] Comment on above: Result Comment: Oma loco note: LIPASE revised reference range effective 23. New Lipase methodology. Expected to produce lower values than the previous assay method. NEW Reference Range: 13 - 75 U/L Performed By: #### L 501.4700, L501.2450 ####[facility] [address] [place], [address] Urinalysis, Completeon 04-16 BACTERIA 1+ /hpf Normal None Seen [facility] Comment on above: Order Comment: COLLE CTOR TO SPECIFY Performed By: #### L 400.0001 #### [facility] [address] [place], [address] CAST,HYALINE 0-5 SEEN Normal 0-5 [facility] Comment on above: Order Comment: COLLE CTOR TO SPECIFY Performed By: #### L 400.0001 #### [facility] [address] [place], [address] EPI,SQUAMOUS 0-5 SEEN Normal 5-10 [facility] Comment on above: Order Comment: COLLE CTOR TO SPECIFY Performed By: #### L 400.0001 #### [facility] [address] [place], [address] Mucus Ql (Urine sed) 1+ /hpf Normal [facility] Comment on above: Order Comment: COLLE CTOR TO SPECIFY Performed By: #### L 400.0001 #### [facility] [address] [place], [address] RBC 0-5 SEEN Normal 0-5 [facility] Comment on above: Order Comment: COLLE CTOR TO SPECIFY Performed By: #### L 400.0001 #### [facility] [address] [place], [address] WBC 0 SEEN Normal 0-5 [facility] Comment on above: Order Comment: COLLE CTOR TO SPECIFY Performed By: #### L 400.0001 #### [facility] [address] [place], [address] WENDY SCREENINGon 06-09-2023 [facility] WENDY SCREENINGon 04-29-2022 [facility] XR Foot - right AP and Later al and obliqueon 09-11-2021 IMPRESSION: Fracture of the proximal phalanx of the little toe. Physical Testing Supervisor: SUHAS Transcribe Date/Time: Sep 11 2021 9:08A Dictated by : JUAN CEDENO MD This examination was interpreted and the report reviewed and electronically signed by: JUAN CEDENO MD on Sep 11 2021 9:09AM [facility] DIVISION OF RADIOLOGY * * *Final Report* * * DATE OF EXAM: Sep 11 2021 9:00AM WOX 5337 - XR FOOT 3V AP/LAT/OBL RT / PROCEDURE REASON: Toe pain, right * * * * Physician Interpretation * * * * Right foot HISTORY: 61 years old Clinical information: Toe pain, right Pt. states she stubbed her Rt pinky toe 3 weeks ago. Pain in Rt pinky toe, lateral aspect of Rt foot and pain radiates to the top of the rt foot. TECHNIQUE: Images: XR FOOT 3V AP/LAT/OBL RT Comparison: None. RESULT: Findings: There is an oblique fracture of the shaft of the little toe proximal phalanx. Alignment cannot be fully assessed due to overlap on the lateral radiograph. Comparison the slight displacement and angulation. Joint spaces maintained. There is a calcaneal enthesophyte at the origin of the plantar fascia. DIVISION OF RADIOLOGY Provider, [facility] - 09/11/2021 * * *Final Report* * * DATE OF EXAM: Sep 11 2021 9:00AM WOX 5337 - XR FOOT 3V AP/LAT/OBL RT / PROCEDURE REASON: Toe pain, right * * * * Physician Interpretation * * * * Right foot HISTORY: 61 years old Clinical information: Toe pain, right Pt. states she stubbed her Rt pinky toe 3 weeks ago. Pain in Rt pinky toe, lateral aspect of Rt foot and pain radiates to the top of the rt foot. TECHNIQUE: Images: XR FOOT 3V AP/LAT/OBL RT Comparison: None. RESULT: Findings: There is an oblique fracture of the shaft of the little toe proximal phalanx. Alignment cannot be fully assessed due to overlap on the lateral radiograph. Comparison the slight displacement and angulation. Joint spaces maintained. There is a calcaneal enthesophyte at the origin of the plantar fascia. IMPRESSION IMPRESSION: Fracture of the proximal phalanx of the little toe. Physical Testing Supervisor: PSCB Transcribe Date/Time: Sep 11 2021 9:08A Dictated by : JUAN CEDENO MD This examination was interpreted and the report reviewed and electronically signed by: JUAN CEDENO MD on Sep 11 2021 9:09AM EST [facility] Radiology Study observation (narrative) [facility] XR Foot - right AP and Later al and obliqueOrdered By: [facility] Provider on 09-11-2021 [facility] CBC with auto diff ([id number])Or dered By: [employer] on 08-25-2017 Basophils Auto #/vol (Bld) 0.1 {x10E3/uL} Normal 0.0-0.2 [facility] Work Phone: Basophils/100 WBC Auto (Bld) 1 % Normal [facility] Work Phone: Eosinophils Auto #/vol (Bld) 0.1 {x10E3/uL} Normal 0.0-0.4 [facility] Work Phone: Eosinophils/100 WBC Auto (Bld) 1 % Normal [facility] Work Phone: Erythrocyte distribution width Auto Ratio (RBC) 14.4 % Normal 12.3-15.4 [facility] Work Phone: Hematocrit Auto Volume Fraction (Bld) 38.9 % Normal 34.0-46.6 [facility] Work Phone: Hemoglobin mass conc (Bld) 13.0 g/dL Normal 11.1-15.9 [facility] Work Phone: Immature granulocytes #/vol (Bld) 0.0 {x10E3/uL} Normal 0.0-0.1 [facility] Work Phone: Immature granulocytes/100 WBC (Bld) 0 % Normal [facility] Work Phone: Lymphocytes Auto #/vol (Bld) 1.5 {x10E3/uL} Normal 0.7-3.1 [facility] Work Phone: Lymphocytes/100 WBC Auto (Bld) 24 % Normal [facility] Work Phone: MCH Auto Entitic mass (RBC) 28.8 pg Normal 26.6-33.0 [facility] Work Phone: MCHC Auto mass conc (RBC) 33.4 g/dL Normal 31.5-35.7 [facility] Work Phone: MCV Auto Entitic volume (RBC) 86 fL Normal 79-97 [facility] Work Phone: Monocytes Auto #/vol (Bld) 0.3 {x10E3/uL} Normal 0.1-0.9 [facility] Work Phone: Monocytes/100 WBC Auto (Bld) 5 % Normal [facility] Work Phone: Neutrophils Auto #/vol (Bld) 4.4 {x10E3/uL} Normal 1.4-7.0 [facility] Work Phone: Neutrophils/100 WBC Auto (Bld) 69 % Normal [facility] Work Phone: Platelets Auto #/vol (Bld) 250 {x10E3/uL} Normal 150-379 [facility] Work Phone: RBC Auto #/vol (Bld) 4.51 {x10E6/uL} Normal 3.77-5.28 [facility] Work Phone: WBC Auto #/vol (Bld) 6.4 {x10E3/uL} Normal 3.4-10.8 [facility] Work Phone: METABOLIC PANEL, COMPREHENSI VE ([id number])Ordered By: [employer] on 08-25-2017 Albumin mass conc 4.3 g/dL Normal 3.5-5.5 Compreh [facility] Work Phone: Albumin/Globulin mass ratio 1.3 {ratio} Normal 1.2-2.2 [facility] Work Phone: ALP enzyme act/vol 73 [iU]/L Normal 39-117 [facility] Work Phone: ALT enzyme act/vol 10 [iU]/L Normal 0-32 [facility] Work Phone: AST enzyme act/vol 16 [iU]/L Normal 0-40 Compre [facility] Internal Medicine Work Phone: Bilirubin mass conc 1.2 mg/dL Normal 0.0-1.2 Compr [facility] Internal [facility] Work Phone: Calcium mass conc 9.6 mg/dL Normal 8.7-10.2 Compre[facility] Work Phone: Chloride molar conc 101 mmol/L Normal 96-106 Compr [facility] Work Phone: CO2 molar conc 24 mmol/L Normal 18-29 [facility] Work Phone: Creatinine mass conc 1.15 mg/dL Abnormal 0.57-1.00 Comp rehens[facility] Work Phone: GFR/1.73 sq M predicted among blacks CKD-EPI vol rate/area (S/P/Bld) 62 mL/min/1.73 Normal [facility] Work Phone: GFR/1.73 sq M predicted among non-blacks CKD-EPI vol rate/area (S/P/Bld) 54 mL/min/1.73 Abnormal [facility] Work Phone: Globulin Calculated mass conc (S) 3.2 g/dL Normal 1.5-4.5 [facility] Work Phone: Glucose mass conc 75 mg/dL Normal 65-99 Compre[facility] Work Phone: Potassium molar conc 3.9 mmol/L Normal 3.5-5.2 [facility] Work Phone: Protein mass conc 7.5 g/dL Normal 6.0-8.5 Com[facility] ens[facility] Work Phone: Sodium molar conc 143 mmol/L Normal 134-144 Com[facility] Work Phone: Urea nitrogen mass conc 20 mg/dL Normal 6-24 [facility] Work Phone: Urea nitrogen/Creatinine mass ratio 17 mg/mg Normal 9-23 [facility] Work Phone: CBC, PLATELETS & AUT DIFF ([phone])Ordered By: [employer] on 05-25-2017 Basophils Auto #/vol (Bld) 0.0 {x10E3/uL} Normal 0.0-0.2 [facility] Work Phone: Basophils/100 WBC Auto (Bld) 1 % Normal [facility] Work Phone: Eosinophils Auto #/vol (Bld) 0.1 {x10E3/uL} Normal 0.0-0.4 [facility] Work Phone: Eosinophils/100 WBC Auto (Bld) 2 % Normal [facility] Work Phone: Erythrocyte distribution width Auto Ratio (RBC) 14.2 % Normal 12.3-15.4 [facility] Work Phone: Hematocrit Auto Volume Fraction (Bld) 36.4 % Normal 34.0-46.6 [facility] Work Phone: Hemoglobin mass conc (Bld) 11.9 g/dL Normal 11.1-15.9 [facility] Work Phone: Immature granulocytes #/vol (Bld) 0.0 {x10E3/uL} Normal 0.0-0.1 [facility] Work Phone: Immature granulocytes/100 WBC (Bld) 0 % Normal [facility] Work Phone: Lymphocytes Auto #/vol (Bld) 1.6 {x10E3/uL} Normal 0.7-3.1 [facility] Work Phone: Lymphocytes/100 WBC Auto (Bld) 28 % Normal [facility] Work Phone: MCH Auto Entitic mass (RBC) 28.5 pg Normal 26.6-33.0 [facility] Work Phone: MCHC Auto mass conc (RBC) 32.7 g/dL Normal 31.5-35.7 [facility] Work Phone: MCV Auto Entitic volume (RBC) 87 fL Normal 79-97 [facility] Work Phone: Monocytes Auto #/vol (Bld) 0.5 {x10E3/uL} Normal 0.1-0.9 [facility] Work Phone: Monocytes/100 WBC Auto (Bld) 9 % Normal [facility] Work Phone: Neutrophils Auto #/vol (Bld) 3.6 {x10E3/uL} Normal 1.4-7.0 [facility] Work Phone: Neutrophils/100 WBC Auto (Bld) 60 % Normal [facility] Work Phone: Platelets Auto #/vol (Bld) 210 {x10E3/uL} Normal 150-379 [facility] Work Phone: RBC Auto #/vol (Bld) 4.18 {x10E6/uL} Normal 3.77-5.28 [facility] Work Phone: WBC Auto #/vol (Bld) 5.8 {x10E3/uL} Normal 3.4-10.8 [facility] Work Phone: FERRITIN ([id number])Ordered By: [employer] on 05-25-2017 Ferritin mass conc 55 ng/mL Normal 15-150 [facility] Work Phone: IRON ([id number])Ordered By: Syst em [employer] on 05-25-2017 Iron mass conc 68 ug/dL Normal 27-159 Comprehens [facility] Work Phone: LIPID PANEL ([id number])Ordered B y: [employer] on 05-25-2017 Cholesterol in HDL mass conc 53 mg/dL Normal [facility] Work Phone: Cholesterol in LDL mass conc 61 mg/dL Normal 0-99 [facility] Work Phone: Cholesterol in LDL/Cholesterol in HDL mass ratio 1.2 {ratio_units} Normal 0.0-3.2 [facility] Work Phone: Comment on above: LDL/HDL Ratio Men Wo men 1/2 Avg.Risk 1.0 1.5 Avg.Risk 3.6 3.2 2X Avg.Risk 6.2 5.0 3X Avg.Risk 8.0 6.1 Cholesterol in VLDL mass conc 15 mg/dL Normal 5-40 [facility] Work Phone: Cholesterol mass conc 129 mg/dL Normal 100-199 Com [facility] Work Phone: Triglyceride mass conc 73 mg/dL Normal 0-149 [facility] Work Phone: METABOLIC PANEL, COMPREHENSI VE ([id number])Ordered By: [employer] on 05-25-2017 Albumin mass conc 4.2 g/dL Normal 3.5-5.5 Compreh ensive [facility] Medicine Work Phone: Albumin/Globulin mass ratio 1.4 {ratio} Normal 1.2-2.2 [facility] Work Phone: ALP enzyme act/vol 72 [iU]/L Normal 39-117 [facility] Internal Medicine Work Phone: ALT enzyme act/vol 12 [iU]/L Normal 0-32 [facility] Internal Medicine Work Phone: AST enzyme act/vol 17 [iU]/L Normal 0-40 [facility] Internal Medicine Work Phone: Bilirubin mass conc 1.5 mg/dL Abnormal 0.0-1.2 Compr [facility] Internal Medicine Work Phone: Calcium mass conc 9.3 mg/dL Normal 8.7-10.2 Compreh ensive Internal Medicine Work Phone: Chloride molar conc 101 mmol/L Normal 96-106 Compr [facility] Internal Medicine Work Phone: CO2 molar conc 25 mmol/L Normal 18-29 Comprehens [facility] Work Phone: Creatinine mass conc 1.16 mg/dL Abnormal 0.57-1.00 [facility] Work Phone: GFR/1.73 sq M predicted among blacks CKD-EPI vol rate/area (S/P/Bld) 61 mL/min/1.73 Normal Comprehensiv e Internal Medicine Work Phone: GFR/1.73 sq M predicted among non-blacks CKD-EPI vol rate/area (S/P/Bld) 53 mL/min/1.73 Abnormal [facility] Work Phone: Globulin Calculated mass conc (S) 2.9 g/dL Normal 1.5-4.5 [facility] Work Phone: Glucose mass conc 84 mg/dL Normal 65-99 Compreh ensive [facility] Medicine Work Phone: Potassium molar conc 3.7 mmol/L Normal 3.5-5.2 Comp re[facility] Work Phone: Protein mass conc 7.1 g/dL Normal 6.0-8.5 Compreh ensive [facility] Medicine Work Phone: Sodium molar conc 143 mmol/L Normal 134-144 Compre[facility] ensive [facility] Medicine Work Phone: Urea nitrogen mass conc 12 mg/dL Normal 6-24 [facility] Work Phone: Urea nitrogen/Creatinine mass ratio 10 mg/mg Normal 9-23 [facility] Work Phone: MICROALBUMINOrdered By: Syst em [employer] on 05-25-2017 Albumin DL <= 20 mg/L mass conc (U) 11.9 ug/mL Normal [facility] Work Phone: Albumin/Creatinine mass ratio (U) 3.4 {mg/g_creat} Normal 0.0-30.0 [facility] Work Phone: Creatinine mass conc (U) 347.6 mg/dL Normal [facility] Work Phone: URINE CEE CULTURE-IDENTIFICA TN ([id number])Ordered By: [employer] on 05-25-2017 Bacteria identified Cx Nom (U) Final report Normal [facility] Work Phone: Bacteria identified Cx Nom (U) MUG Normal [facility] Work Phone: Comment on above: Mixed urogenital martin ra1,000 Colonies/mL Vitamin D Hydroxy ([id number])Ord ered By: [employer] on 05-25-2017 25-Hydroxyvitamin D2+25-Hydroxyvitamin D3 mass conc 43.8 ng/mL Normal 30.0-100.0 [facility] Work Phone: Comment on above: Vitamin D deficiency has been defined by the [place] of[place]icine and an Endocrine Society practice guideline as alevel of serum 25-OH vitamin D less than 20 ng/mL (1,2).The Endocrine Society went on to further define vitamin Dinsufficiency as a level between 21 and 29 ng/mL (2).1. IOM ([place] of [place]). 2010. Dietary reference intakes for calcium and D. [place]: The National Academies Press.2. Tatianna MF, Isac [place], Stanton TRUJILLO, et al. Evaluation, treatment, and prevention of vitamin D deficiency: an Endocrine Society clinical practice guideline. JCEM. 2010; 96(7):1911-30. HgA1C , Office ([id number])Ordere d By: Ines Reynoso on 05-22-2017 Hemoglobin A1c/Hemoglobin.total mass fraction (Bld) 5.5 % Normal 4.6 - 7.1 Comprehens[facility] e [facility] Work Phone: Urinalysis, Office ([id number])Or dered By: Nicky Thomas on 05-22-2017 Bilirubin Ql (U) Small Normal Comprehe nsive Internal Medicine Work Phone: Glucose Test strip mass conc (U) Negative Normal [facility] Work Phone: Hemoglobin Test strip Ql (U) non-hemolyzed trace Normal Comprehensiv e Internal Medicine Work Phone: Ketones Ql (U) Negative Normal Comprehens [facility] Work Phone: Leukocyte esterase Test strip Ql (U) Negative Normal [facility] Work Phone: Nitrite Test strip Ql (U) Negative Normal [facility] Work Phone: pH Test strip (U) 6 [pH] Abnormal Compreh ensive Internal Medicine Work Phone: Protein Test strip Ql (U) Negative Normal [facility] Work Phone: Specific gravity Relative Density (U) 1.030 1 Abnormal Comprehensi ve Internal Medicine Work Phone: Urobilinogen mass/time (24H U) Normal Normal [facility] Work Phone: HGB A1C ([id number])Ordered By: Cole [employer]stem [employer] on 10-20-2016 Hemoglobin A1c/Hemoglobin.total mass fraction (Bld) 6.1 % Abnormal 4.8-5.6 Comprehensiv e [facility] Work Phone: Comment on above: . Pre-diabetes: 5.7 - 6.4 Diabetes: >6.4 Glycemic control for adults with diabetes: <7.0 LIPOPROTEIN, BLD, BY NMR ([id number])Ordered By: [employer] on 10-20-2016 Cholesterol in HDL mass conc 47 mg/dL Normal [facility] Work Phone: Cholesterol in LDL mass conc 87 mg/dL Normal 0-99 [facility] Work Phone: Comment on above: . Optimal < 100 Abov e optimal 100 - 129 Borderline 130 - 159 High 160 - 189 Very high > 189 .LDL-C is inaccurate if patient is non-fasting. Cholesterol mass conc 168 mg/dL Normal 100-199 Com prehensive [facility] Work Phone: Lipoprotein.alpha molar conc 36.0 umol/L Normal [facility] Work Phone: Lipoprotein.beta.subp article Entitic length 19.9 nm Normal [facility] Work Phone: Comment on above: INTERPRETATIVE INFORMATION PARTICLE CONCENTRATION AND SIZE <--Lower CVD Risk Higher CVD Risk--> LDL AND HDL PARTICLES Percentile in Reference Population HDL-P (total) High 75th 50th 25th Low >34.9 34.9 30.5 26.7 <26.7 . Small LDL-P Low 25th 50th 75th High <117 [phone] >839 . LDL Size <-Large (Pattern A)-> <-Small (Pattern B)-> 23.0 20.6 20.5 19.0 Small LDL-P and LDL Size are associated with CVD risk, but not afterLDL-P is taken into account. .These assays were developed and their performance characteristicsdetermined by [employer]. These assays have not been cleared by [place] Food and Drug Administration. The clinical utility of theselaboratory values have not been fully established. Lipoprotein.beta.subp article molar conc 954 nmol/L Normal [facility] Work Phone: Comment on above: Low < 1000 Moderate 1000 - 1299 Borderline-High 1300 - 1599 High 1600 - 2000 Very High > 2000 Lipoprotein.beta.subp article.small molar conc 675 nmol/L Abnormal [facility] Work Phone: Triglyceride mass conc 172 mg/dL Abnormal 0-149 [facility] Work Phone: METABOLIC PANEL, COMPREHENSI VE ([id number])Ordered By: [employer] on 10-20-2016 Albumin mass conc 4.0 g/dL Normal 3.5-5.5 [facility] Work Phone: Albumin/Globulin mass ratio 1.3 {ratio} Normal 1.1-2.5 [facility] Work Phone: ALP enzyme act/vol 67 [iU]/L Normal 39-117 [facility] Internal Medicine Work Phone: ALT enzyme act/vol 13 [iU]/L Normal 0-32 [facility] Internal Medicine Work Phone: AST enzyme act/vol 13 [iU]/L Normal 0-40 [facility] Internal Medicine Work Phone: Bilirubin mass conc 0.4 mg/dL Normal 0.0-1.2 Compr [facility] Internal Medicine Work Phone: Calcium mass conc 9.2 mg/dL Normal 8.7-10.2 Compreh ensive Internal Medicine Work Phone: Chloride molar conc 103 mmol/L Normal 96-106 Compr ensive [facility] Medicine Work Phone: CO2 molar conc 24 mmol/L Normal 18-29 Comprehens [facility] Work Phone: Creatinine mass conc 1.01 mg/dL Abnormal 0.57-1.00 [facility]: GFR/1.73 sq M predicted among blacks CKD-EPI vol rate/area (S/P/Bld) 73 mL/min/1.73 Normal Comprehensiv e Internal Medicine Work Phone: GFR/1.73 sq M predicted among non-blacks CKD-EPI vol rate/area (S/P/Bld) 63 mL/min/1.73 Normal [facility] Work Phone: Globulin Calculated mass conc (S) 3.0 g/dL Normal 1.5-4.5 [facility] Work Phone: Glucose mass conc 87 mg/dL Normal 65-99 Compreh ensive [facility] Medicine Work Phone: Potassium molar conc 3.7 mmol/L Normal 3.5-5.2 Comp rehens[facility] Work Phone: Protein mass conc 7.0 g/dL Normal 6.0-8.5 Compreh ensive [facility] Work Phone: Sodium molar conc 143 mmol/L Normal 134-144 Compreh ensive [facility] Work Phone: Urea nitrogen mass conc 10 mg/dL Normal 6-24 [facility] Work Phone: Urea nitrogen/Creatinine mass ratio 10 mg/mg Normal 9-23 [facility] Work Phone: TESTOSTERONE FREE ([id number])Ord ered By: [employer] on 10-20-2016 Testosterone Free mass conc 3.1 pg/mL Normal 0.0-4.2 [facility] Work Phone: Vitamin D Hydroxy ([id number])Ord ered By: [employer] on 10-20-2016 25-Hydroxyvitamin D2+25-Hydroxyvitamin D3 mass conc 43.2 ng/mL Normal 30.0-100.0 [facility] Work Phone: Comment on above: Vitamin D deficiency has been defined by the [place] of[place]icine and an Endocrine Society practice guideline as alevel of serum 25-OH vitamin D less than 20 ng/mL (1,2).The Endocrine Society went on to further define vitamin Dinsufficiency as a level between 21 and 29 ng/mL (2).1. IOM ([place]). 2010. Dietary reference intakes for calcium and D. [place]: The National Academies Press.2. Tatianna MF, [place], Stanton TRUJILLO, et al. Evaluation, treatment, and prevention of vitamin D deficiency: an Endocrine Society clinical practice guideline. JCEM. 2010; 96(7):1911-30. HPV automatic ([id number])Ordered By: [employer] on 09-05-2016 HPV 16+18+31+33+35+39+45+ 51+52+56+58+59+68 DNA Probe+sig amp Ql (Cvx) Negative Normal [facility] Work Phone: Comment on above: This high-risk HPV t est detects thirteen high-risk types(16/18/31/33/35/39/45/51/52/56/58/59/68) without differentiation. . Microscopic observation Other stain Nom (Unsp spec) . Normal Comprehens [facility] Work Phone: Pathology report final diagnosis Narrative SPRCS Normal [facility] Work Phone: Comment on above: NEGATIVE FOR INTRAEP ITHELIAL LESION AND MALIGNANCY.Satisfactory for evaluation. No endocervical component is identified.Z11.51Arlen Piña Faro Dealer (ASCP) HPV automatic ([id number]) PAPSMR Normal Com prehensive [facility] Medicine Work Phone: Comment on above: The Pap smear is a s creening test designed to aid in the detection ofpremalignant and malignant conditions of the uterine cervix. It is not adiagnostic procedure and should not be used as the sole means of detectingcervical cancer. Both false-positive and false-negative reports do occur. .This liquid based ThinPrep(R) pap test was screened with theuse of an image guided system. CBC W/AUTO DIFF WBC ([id number])O rdered By: [employer] on 08-19-2016 Basophils Auto #/vol (Bld) 0.0 {x10E3/uL} Normal 0.0-0.2 [facility] Work Phone: Basophils/100 WBC Auto (Bld) 1 % Normal [facility] Work Phone: Eosinophils Auto #/vol (Bld) 0.1 {x10E3/uL} Normal 0.0-0.4 [facility] Work Phone: Eosinophils/100 WBC Auto (Bld) 1 % Normal [facility] Work Phone: Erythrocyte distribution width Auto Ratio (RBC) 14.3 % Normal 12.3-15.4 [facility] Work Phone: Hematocrit Auto Volume Fraction (Bld) 37.1 % Normal 34.0-46.6 Comprehens [facility] Work Phone: Hemoglobin mass conc (Bld) 12.3 g/dL Normal 11.1-15.9 [facility] Work Phone: Immature granulocytes #/vol (Bld) 0.0 {x10E3/uL} Normal 0.0-0.1 [facility] Work Phone: Immature granulocytes/100 WBC (Bld) 0 % Normal [facility] Work Phone: Lymphocytes Auto #/vol (Bld) 1.7 {x10E3/uL} Normal 0.7-3.1 [facility] Work Phone: Lymphocytes/100 WBC Auto (Bld) 24 % Normal [facility] Work Phone: MCH Auto Entitic mass (RBC) 28.5 pg Normal 26.6-33.0 [facility] Work Phone: MCHC Auto mass conc (RBC) 33.2 g/dL Normal 31.5-35.7 [facility] Work Phone: MCV Auto Entitic volume (RBC) 86 fL Normal 79-97 [facility] Work Phone: Monocytes Auto #/vol (Bld) 0.5 {x10E3/uL} Normal 0.1-0.9 [facility] Work Phone: Monocytes/100 WBC Auto (Bld) 7 % Normal [facility] Work Phone: Neutrophils Auto #/vol (Bld) 4.7 {x10E3/uL} Normal 1.4-7.0 [facility] Work Phone: Neutrophils/100 WBC Auto (Bld) 67 % Normal [facility] Work Phone: Platelets Auto #/vol (Bld) 230 {x10E3/uL} Normal 150-379 [facility] Work Phone: RBC Auto #/vol (Bld) 4.32 {x10E6/uL} Normal 3.77-5.28 [facility] Work Phone: WBC Auto #/vol (Bld) 7.0 {x10E3/uL} Normal 3.4-10.8 [facility] Work Phone: METABOLIC PANEL, COMPREHENSI VE ([id number])Ordered By: [employer] on 08-19-2016 Albumin mass conc 4.1 g/dL Normal 3.5-5.5 Compreh ensive Internal Medicine Work Phone: Albumin/Globulin mass ratio 1.4 {ratio} Normal 1.1-2.5 [facility] Work Phone: ALP enzyme act/vol 71 [iU]/L Normal 39-117 [facility] Internal Medicine Work Phone: ALT enzyme act/vol 14 [iU]/L Normal 0-32 [facility] Internal Medicine Work Phone: AST enzyme act/vol 16 [iU]/L Normal 0-40 [facility] Internal Medicine Work Phone: Bilirubin mass conc 0.5 mg/dL Normal 0.0-1.2 Compr [facility] Internal Medicine Work Phone: Calcium mass conc 9.2 mg/dL Normal 8.7-10.2 [facility]pre[facility] Work Phone: Chloride molar conc 100 mmol/L Normal 97-106 Compr [facility] Internal Medicine Work Phone: Comment on above: Please note refere nce interval change CO2 molar conc 24 mmol/L Normal 18-29 Comprehens [facility] Work Phone: Creatinine mass conc 1.06 mg/dL Abnormal 0.57-1.00 [facility] Work Phone: GFR/1.73 sq M predicted among blacks CKD-EPI vol rate/area (S/P/Bld) 69 mL/min/1.73 Normal Comprehensiv e Internal Medicine Work Phone: GFR/1.73 sq M predicted among non-blacks CKD-EPI vol rate/area (S/P/Bld) 60 mL/min/1.73 Normal [facility] Work Phone: Globulin Calculated mass conc (S) 2.9 g/dL Normal 1.5-4.5 [facility] Work Phone: Glucose mass conc 93 mg/dL Normal 65-99 Compreh ensive Internal Medicine Work Phone: Potassium molar conc 3.8 mmol/L Normal 3.5-5.2 Comp rehensive Internal Medicine Work Phone: Comment on above: Please note refere nce interval change Protein mass conc 7.0 g/dL Normal 6.0-8.5 Compreh ensive Internal Medicine Work Phone: Sodium molar conc 141 mmol/L Normal 136-144 Compreh ensive [facility] Medicine Work Phone: Comment on above: Please note refere nce interval change Urea nitrogen mass conc 14 mg/dL Normal 6-24 [facility] Work Phone: Urea nitrogen/Creatinine mass ratio 13 mg/mg Normal 9-23 [facility] Work Phone: MICROALBUMINOrdered By: Syst em [employer] Plater on 08-19-2016 Albumin DL <= 20 mg/L mass conc (U) 3.1 ug/mL Normal [facility] Work Phone: Albumin/Creatinine mass ratio (U) 1.8 {mg/g_creat} Normal 0.0-30.0 [facility] Work Phone: Creatinine mass conc (U) 169.7 mg/dL Normal [facility] Work Phone: Blood Glucose , Office ([phone])Ordered By: Ines Reynoso on 06-10-2016 Glucose Glucometer molar conc (BldC) 76 1 Normal [facility] Work Phone: HgA1C , Office ([id number])Ordere d By: Bhavani Puente on 06-10-2016 Hemoglobin A1c/Hemoglobin.total mass fraction (Bld) 5.5 % Normal 4.6 - 7.1 Comprehensiv e Internal Medicine Work Phone: FERRITIN ([id number])Ordered By: [employer] on 01-20-2016 Ferritin mass conc 34 ng/mL Normal 15-150 Compre hensive Internal Medicine Work Phone: IRON ([id number])Ordered By: Syst em [employer] Plater on 01-20-2016 Iron mass conc 60 ug/dL Normal 27-159 Comprehens [facility] Work Phone: Vitamin D Hydroxy ([id number])Ord ered By: [employer] on 01-20-2016 25-Hydroxyvitamin D2+25-Hydroxyvitamin D3 mass conc 41.9 ng/mL Normal 30.0-100.0 [facility] Work Phone: Comment on above: Vitamin D deficiency has been defined by the [place] of[place]icine and an Endocrine Society practice guideline as alevel of serum 25-OH vitamin D less than 20 ng/mL (1,2).The Endocrine Society went on to further define vitamin Dinsufficiency as a level between 21 and 29 ng/mL (2).1. IOM ([place] of [place]). 2010. Dietary reference intakes for calcium and D. [place]: The National Academies Press.2. Tatianna MF, Isac [place], Stanton TRUJILLO, et al. Evaluation, treatment, and prevention of vitamin D deficiency: an Endocrine Society clinical practice guideline. JCEM. 2010; 96(7):1911-30. serum immunofixation ([id number]) Ordered By: [employer] on 01-20-2016 IgA mass conc 326 mg/dL Normal 87-352 Comprehensi ve Internal Medicine Work Phone: IgG mass conc 1520 mg/dL Normal 700-1600 Comprehensi ve Internal Medicine Work Phone: IgM mass conc 33 mg/dL Normal 26-217 Comprehensi ve Internal Medicine Work Phone: Protein Fractions Immunofixation Interp UPEIP Normal Comprehens [facility] Work Phone: Comment on above: No monoclonality det ected. urine immunofixation ([id number]) Ordered By: [employer] on 01-20-2016 Interpretation Immunofixation Interp (U) UPEIP Normal [facility] Work Phone: Comment on above: No monoclonality det ected. CBC W/Diff, AutomatedOrdered By: [employer] on 01-08-2016 Absolute Lymph 1.41 {X10_3/ul} Normal 0.83-4.51 Compr ehensive Internal Medicine Work Phone: Absolute Neut 4.0 {X10_3/uL} Normal 2.0-7.7 Compreh ensive Internal Medicine Work Phone: Basophils/100 WBC Auto (Bld) 0.7 % Normal 0-1 [facility] Work Phone: Eosinophils/100 WBC Auto (Bld) 1.8 % Normal 0-5 [facility] Work Phone: Erythrocyte distribution width Auto Ratio (RBC) 13.5 % Normal 11.6-14.6 [facility] Work Phone: Hematocrit Auto Volume Fraction (Bld) 38.5 % Normal 37-47 Comprehens [facility] Work Phone: Hemoglobin mass conc (Bld) 12.8 g/dL Normal 12.0-15.0 [facility] Work Phone: IM GRAN % 0.200 % Normal 0.0-0.9 [facility] Work Phone: Comment on above: IG% - Immature Granu locytes (promyelocytes, myelocytes andmetamyelocytes) > 1% indicates that a LEFT SHIFT is Present. Lymphocytes/100 WBC Auto (Bld) 23.3 % Normal 19-41 [facility] Work Phone: MCH Auto Entitic mass (RBC) 28.8 pg Normal 27.0-32.0 [facility] Work Phone: MCHC Auto mass conc (RBC) 33.2 {g/gl} Normal 32-36 [facility] Work Phone: MCV Auto Entitic volume (RBC) 86.7 fL Normal 81-99 [facility] Work Phone: Monocytes/100 WBC Auto (Bld) 7.8 % Normal 0-10 [facility] Work Phone: Neutrophils/100 WBC Auto (Bld) 66.2 % Normal 47-70 [facility] Work Phone: Platelet mean volume Auto Entitic volume (Bld) 11.6 fL Normal 6.2-12.0 [facility] Work Phone: Platelets Auto #/vol (Bld) 221 10*3/uL Normal 150-450 [facility] Work Phone: RBC Auto #/vol (Bld) 4.44 {M/mm3} Normal 4.2-5.4 Co mprehensive Internal Medicine Work Phone: RDW SD 41.8 fL Normal 35.1-43.9 [facility] Work Phone: WBC Auto #/vol (Bld) 6.0 10*3/uL Normal 4.4-11.0 [facility] prehensive Internal Medicine Work Phone: Comprehensive Metabolic Prof ilOrdered By: B[employer]er [employer] on 01-08-2016 Comprehensive metabolic 2000 panel 144 mmol/L Normal 136-145 Comprehensi ve Internal Medicine Work Phone: Comprehensive metabolic 2000 panel 73 mL/min Normal Comprehensi ve Internal Medicine Work Phone: Comment on above: GFR Calc Comprehensive metabolic 2000 panel 13.7 {RATIO} Normal 10-20 Comprehensi ve [facility] Work Phone: Comprehensive metabolic 2000 panel 7.5 g/dL Normal 6.4-8.2 [facility] Work Phone: Comprehensive metabolic 2000 panel 90 mg/dL Normal 70-110 [facility]pre[facility] Work Phone: Comprehensive metabolic 2000 panel 1.02 mg/dL Normal 0.55-1.20 Compre[facility] Work Phone: Comment on above: The validity of the calculated GFR AND GFRAA in patients over70 years has not been determined. Clinical correlation isessential. Comprehensive metabolic 2000 panel 3.9 mmol/L Normal 3.5-5.1 [facility] Work Phone: Comprehensive metabolic 2000 panel 107 mmol/L Normal 98-107 Compre[facility] Work Phone: Comprehensive metabolic 2000 panel 3.4 g/dL Normal 3.4-5.0 [facility] Work Phone: Comprehensive metabolic 2000 panel 4.1 g/dL Abnormal 2.3-3.5 [facility] Work Phone: Comprehensive metabolic 2000 panel 0.8 {RATIO} Abnormal 0.9-2.4 [facility] Work Phone: Comprehensive metabolic 2000 panel 14 mg/dL Normal 7-18 [facility] Work Phone: Comprehensive metabolic 2000 panel 11 U/L Abnormal 15-37 [facility] Work Phone: Comprehensive metabolic 2000 panel 70 U/L Normal 50-136 [facility] Work Phone: Comprehensive metabolic 2000 panel 30.0 mmol/L Normal 21.0-32.0 [facility] Work Phone: Comprehensive metabolic 2000 panel 7 1 Normal 5-15 [facility] Work Phone: Comprehensive metabolic 2000 panel 20 U/L Normal 12-78 [facility] Work Phone: Comprehensive metabolic 2000 panel 9.0 mg/dL Normal 8.5-10.1 [facility] Work Phone: Comprehensive metabolic 2000 panel 60 mL/min Normal Compre[facility]si ve [facility] Work Phone: Comment on above: Non- GFR Calc Comprehensive metabolic 2000 panel 1.00 mg/dL Normal 0.20-1.00 [facility]pre[facility] Work Phone: Hemoglobin C1sMpatzpi By: [employer] stem [employer] Plater on 01-08-2016 Hemoglobin A1c/Hemoglobin.total mass fraction (Bld) 5.8 % Normal 4.2-6.3 Comprehensiv e [facility] Medicine Work Phone: ANTINUCLEAR ANTIBODIES DIREC TOrdered By: [employer] on 09-11-2015 Nuclear Ab Ql (S) Negative Normal Compreh ensive Internal Medicine Work Phone: Comment on above: Performed at: [address] [id number] Director: Jose De Jesus Molina PhD, Phone: [phone] CRPOrdered By: System Manage r on 09-11-2015 CRP mass conc mg/L Normal 0.0-3.0 Compre[facility] Work Phone: Comment on above: C-Reactive Protein ( CRP) provides useful information for thediagnosis, therapy and monitoring of inflammatory processesand associated diseases. For the evaluation of Relative Riskfor Cardiovascular Disease, a High Sensitivity CRP (HSCRP)should be ordered. Erythrocyte Sed RateOrdered By: [employer] on 09-11-2015 SED RATE 18 mm/h Normal 0-30 [facility] Work Phone: FerritinOrdered By: Valentino hanson on 09-11-2015 Ferritin mass conc 26 ng/mL Normal 8-252 Compre hensive [facility] Medicine Work Phone: Free [id number] By: System Nancy puga on 09-11-2015 T3 free mass conc 2.2 pg/mL Normal 2.18-3.98 Compreh ensive [facility] Medicine Work Phone: IronOrdered By: System Manag er on 09-11-2015 Iron mass conc 44 ug/dL Abnormal 50-170 Comprehens [facility] Work Phone: Rheumatoid FactorOrdered By: [employer] on 09-11-2015 Rheumatoid factor Qn [IU]/mL Normal Comp rehensive Internal Medicine Work Phone: T4 Free DirectOrdered By: Sy stem [employer] on 09-11-2015 T4 free mass conc 0.99 ng/dL Normal 0.76-1.46 Compreh ensive [facility] Medicine Work Phone: Thyroid Stim Hormone (TSH)Or dered By: [employer] on 09-11-2015 Thyrotropin Qn 2.10 {uIU/mL} Normal 0.358-3.74 Compreh ensive [facility] Medicine Work Phone: Vitamin [id number] By: Syste m [employer] on 09-11-2015 Cobalamin (Vitamin B12) mass conc 505 pg/mL Normal 211-911 [facility] Work Phone: Vitamin D,25 HydroxyOrdered By: [employer] on 09-11-2015 Vitamin D 25-OH 15.1 ng/mL Normal Comprehen [facility] Internal Medicine Work Phone: Comment on above: Vitamin D 25(OH) Sta tus Range Deficiency <20 ng/mL (50nmol/L) Insuffciency 20 - 30 ng/mL (50 - 75 nmol/L) Sufficiency 30 - 100 ng/mL (75 - 250 nmol/L) Toxicity >100 ng/mL (>250 nmol/L) Comp. Metabolic Panel (14)Or dered By: [employer] on 04-14-2015 Albumin mass conc 4.2 g/dL Normal 3.5-5.5 [facility] Internal Medicine Work Phone: Albumin/Globulin mass ratio 1.6 {ratio} Normal 1.1-2.5 [facility] Work Phone: ALP enzyme act/vol 68 [iU]/L Normal 39-117 [facility] Internal Medicine Work Phone: ALT enzyme act/vol 15 [iU]/L Normal 0-32 [facility] Internal Medicine Work Phone: AST enzyme act/vol 16 [iU]/L Normal 0-40 [facility] Internal Medicine Work Phone: Bilirubin mass conc 0.5 mg/dL Normal 0.0-1.2 Compr [facility] Internal Medicine Work Phone: Calcium mass conc 9.4 mg/dL Normal 8.7-10.2 Compreh [facility] Internal Medicine Work Phone: Chloride molar conc 102 mmol/L Normal 97-108 Compr [facility] Internal Medicine Work Phone: CO2 molar conc 23 mmol/L Normal 18-29 [facility] Work Phone: Creatinine mass conc 1.07 mg/dL Abnormal 0.57-1.00 Comp [facility] Work Phone: GFR/1.73 sq M predicted among blacks CKD-EPI vol rate/area (S/P/Bld) 68 mL/min/1.73 Normal Comprehensiv e Internal Medicine Work Phone: GFR/1.73 sq M predicted among non-blacks CKD-EPI vol rate/area (S/P/Bld) 59 mL/min/1.73 Abnormal [facility] Work Phone: Globulin Calculated mass conc (S) 2.7 g/dL Normal 1.5-4.5 [facility] Work Phone: Glucose mass conc 91 mg/dL Normal 65-99 Compreh ensive Internal Medicine Work Phone: Potassium molar conc 4.0 mmol/L Normal 3.5-5.2 Comp rehensive Internal Medicine Work Phone: Protein mass conc 6.9 g/dL Normal 6.0-8.5 Compreh ensive [facility] Medicine Work Phone: Sodium molar conc 142 mmol/L Normal 134-144 Compreh ensive Internal Medicine Work Phone: Urea nitrogen mass conc 12 mg/dL Normal 6-24 [facility] Work Phone: Urea nitrogen/Creatinine mass ratio 11 mg/mg Normal 9-23 [facility] Work Phone: Hemoglobin [id number] By: [employer] on 04-14-2015 Hemoglobin A1c/Hemoglobin.total mass fraction (Bld) 5.9 % Abnormal 4.8-5.6 Comprehensiv e Internal Medicine Work Phone: Comment on above: . Increased risk for diabetes: 5.7 - 6.4 Diabetes: >6.4 Glycemic control for adults with diabetes: <7.0 Lipid Panel With LDL/HDL Rat ioOrdered By: [employer] on 04-14-2015 Cholesterol in HDL mass conc 50 mg/dL Normal [facility] Work Phone: Comment on above: According to ATP-III Guidelines, HDL-C >59 mg/dL is considered anegative risk factor for CHD. Cholesterol in LDL mass conc 118 mg/dL Abnormal 0-99 [facility] Work Phone: Cholesterol in LDL/Cholesterol in HDL mass ratio 2.4 {ratio_units} Normal 0.0-3.2 [facility] Work Phone: Comment on above: LDL/HDL Ratio Men Wo men 1/2 Avg.Risk 1.0 1.5 Avg.Risk 3.6 3.2 2X Avg.Risk 6.2 5.0 3X Avg.Risk 8.0 6.1 Cholesterol in VLDL mass conc 22 mg/dL Normal 5-40 [facility] Work Phone: Cholesterol mass conc 190 mg/dL Normal 100-199 Com prehensive Internal Medicine Work Phone: Triglyceride mass conc 112 mg/dL Normal 0-149 [facility] Work Phone: Vitamin D, 25-HydroxyOrdered By: [employer] on 04-14-2015 25-Hydroxyvitamin D2+25-Hydroxyvitamin D3 mass conc 28.9 ng/mL Abnormal 30.0-100.0 [facility] Work Phone: Comment on above: Vitamin D deficiency has been defined by the [place] ofMedicine and an Endocrine Society practice guideline as alevel of serum 25-OH vitamin D less than 20 ng/mL (1,2).The Endocrine Society went on to further define vitamin Dinsufficiency as a level between 21 and 29 ng/mL (2).1. IOM ([place] of [employer]). 2010. Dietary reference intakes for calcium and D. [place]: The National Academies Press.2. Tatianna MF, Isac NC, Stanton TRUJILLO, et al. Evaluation, treatment, and prevention of vitamin D deficiency: an Endocrine Society clinical practice guideline. JCEM. 2010; 96(7):1911-30. CBC W/AUTO DIFF WBC (61096)O rdered By: [employer] on 11-26-2014 Basophils Auto #/vol (Bld) 0.0 {x10E3/uL} Normal 0.0-0.2 [facility] Work Phone: Basophils/100 WBC Auto (Bld) 1 % Normal [facility] Work Phone: Eosinophils Auto #/vol (Bld) 0.1 {x10E3/uL} Normal 0.0-0.4 [facility] Work Phone: Eosinophils/100 WBC Auto (Bld) 1 % Normal [facility] Work Phone: Erythrocyte distribution width Auto Ratio (RBC) 14.8 % Normal 12.3-15.4 [facility] Work Phone: Hematocrit Auto Volume Fraction (Bld) 38.9 % Normal 34.0-46.6 Comprehens [facility] Work Phone: Hemoglobin mass conc (Bld) 12.9 g/dL Normal 11.1-15.9 [facility] Work Phone: Immature granulocytes #/vol (Bld) 0.0 {x10E3/uL} Normal 0.0-0.1 [facility] Work Phone: Immature granulocytes/100 WBC (Bld) 0 % Normal [facility] Work Phone: Lymphocytes Auto #/vol (Bld) 1.9 {x10E3/uL} Normal 0.7-3.1 [facility] Work Phone: Lymphocytes/100 WBC Auto (Bld) 28 % Normal [facility] Work Phone: MCH Auto Entitic mass (RBC) 27.6 pg Normal 26.6-33.0 [facility] Work Phone: MCHC Auto mass conc (RBC) 33.2 g/dL Normal 31.5-35.7 [facility] Work Phone: MCV Auto Entitic volume (RBC) 83 fL Normal 79-97 [facility] Work Phone: Monocytes Auto #/vol (Bld) 0.4 {x10E3/uL} Normal 0.1-0.9 [facility] Work Phone: Monocytes/100 WBC Auto (Bld) 6 % Normal [facility] Work Phone: Neutrophils Auto #/vol (Bld) 4.4 {x10E3/uL} Normal 1.4-7.0 [facility] Work Phone: Neutrophils/100 WBC Auto (Bld) 64 % Normal [facility] Work Phone: Platelets Auto #/vol (Bld) 305 {x10E3/uL} Normal 150-379 [facility] Work Phone: RBC Auto #/vol (Bld) 4.68 {x10E6/uL} Normal 3.77-5.28 [facility] Work Phone: WBC Auto #/vol (Bld) 6.8 {x10E3/uL} Normal 3.4-10.8 [facility] Work Phone: Hemoglobin I1iMermzct By: [employer] on 11-26-2014 Hemoglobin A1c/Hemoglobin.total mass fraction (Bld) 6.2 % Abnormal 4.8-5.6 Comprehensiv e Internal Medicine Work Phone: Comment on above: . Increased risk for diabetes: 5.7 - 6.4 Diabetes: >6.4 Glycemic control for adults with diabetes: <7.0 LIPID PANEL ([id number])Ordered B y: [employer] on 11-26-2014 Cholesterol in HDL mass conc 52 mg/dL Normal [facility] Work Phone: Comment on above: According to ATP-III Guidelines, HDL-C >59 mg/dL is considered anegative risk factor for CHD. Cholesterol in LDL mass conc 149 mg/dL Abnormal 0-99 [facility] Work Phone: Cholesterol in LDL/Cholesterol in HDL mass ratio 2.9 {ratio_units} Normal 0.0-3.2 [facility] Work Phone: Comment on above: LDL/HDL Ratio Men Wo men 1/2 Avg.Risk 1.0 1.5 Avg.Risk 3.6 3.2 2X Avg.Risk 6.2 5.0 3X Avg.Risk 8.0 6.1 Cholesterol in VLDL mass conc 29 mg/dL Normal 5-40 [facility] Work Phone: Cholesterol mass conc 230 mg/dL Abnormal 100-199 Com prehensive Internal Medicine Work Phone: Triglyceride mass conc 143 mg/dL Normal 0-149 [facility] Work Phone: METABOLIC PANEL, COMPREHENSI VE ([id number])Ordered By: [employer] on 11-26-2014 Albumin mass conc 4.2 g/dL Normal 3.5-5.5 Compreh ensive Internal Medicine Work Phone: Albumin/Globulin mass ratio 1.4 {ratio} Normal 1.1-2.5 [facility] Work Phone: ALP enzyme act/vol 75 [iU]/L Normal 39-117 Compre [facility] Internal Medicine Work Phone: ALT enzyme act/vol 11 [iU]/L Normal 0-32 [facility] Internal [facility] Work Phone: AST enzyme act/vol 13 [iU]/L Normal 0-40 [facility] Internal Medicine Work Phone: Bilirubin mass conc 0.5 mg/dL Normal 0.0-1.2 Compr [facility] Internal Medicine Work Phone: Calcium mass conc 9.1 mg/dL Normal 8.7-10.2 Compreh ensive Internal Medicine Work Phone: Chloride molar conc 101 mmol/L Normal 97-108 Compr [facility] Internal Medicine Work Phone: CO2 molar conc 21 mmol/L Normal 18-29 Comprehens [facility] Work Phone: Creatinine mass conc 1.14 mg/dL Abnormal 0.57-1.00 Comp [facility] Work Phone: GFR/1.73 sq M predicted among blacks CKD-EPI vol rate/area (S/P/Bld) 64 mL/min/1.73 Normal Comprehensiv e Internal Medicine Work Phone: GFR/1.73 sq M predicted among non-blacks CKD-EPI vol rate/area (S/P/Bld) 55 mL/min/1.73 Abnormal [facility] Work Phone: Globulin Calculated mass conc (S) 3.0 g/dL Normal 1.5-4.5 [facility] Work Phone: Glucose mass conc 84 mg/dL Normal 65-99 Compreh ensive Internal Medicine Work Phone: Comment on above: Specimen received in contact with cells. No visible hemolysispresent. However GLUC may be decreased and K increased. Clinicalcorrelation indicated. Potassium molar conc 4.4 mmol/L Normal 3.5-5.2 Comp rehensive Internal Medicine Work Phone: Protein mass conc 7.2 g/dL Normal 6.0-8.5 Compreh ensive Internal Medicine Work Phone: Sodium molar conc 140 mmol/L Normal 134-144 Compreh ensive Internal Medicine Work Phone: Urea nitrogen mass conc 11 mg/dL Normal 6-24 [facility] Work Phone: Urea nitrogen/Creatinine mass ratio 10 mg/mg Normal 9-23 [facility] Work Phone: MICROALBUMINOrdered By: Syst em [employer] on 11-26-2014 Albumin DL <= 20 mg/L mass conc (U) 6.2 ug/mL Normal 0.0-17.0 [facility] Work Phone: Albumin/Creatinine mass ratio (U) 3.0 {mg/g_creat} Normal 0.0-30.0 [facility] Work Phone: Creatinine mass conc (U) 204.7 mg/dL Normal 15.0-278.0 [facility] Work Phone: Written AuthorizationOrdered By: [employer] on 11-26-2014 Written Authorization WAR Normal Com prehensive Internal Medicine Work Phone: Comment on above: Written Authorizatio n Received.Authorization received from ELZA SMITH LPN [id number] by Mel Storey HgA1C , Office ([id number])Ordere d By: Kayley Mccain on 06-11-2014 Hemoglobin A1c/Hemoglobin.total mass fraction (Bld) 5.9 % Normal 4.6 - 7.1 Comprehensiv e Internal Medicine Work Phone: LIVEROrdered By: Valentino auguste on 03-13-2014 Albumin mass conc 3.7 g/dL Normal 3.4-5.0 Compreh ensive Internal Medicine Work Phone: LIVER 18 U/L Normal 15-37 [facility] Work Phone: LIVER 7.9 g/dL Normal 6.4-8.2 [facility] Work Phone: LIVER 81 U/L Normal 45-117 [facility] Work Phone: LIVER 0.70 mg/dL Normal 0.00-1.00 [facility] Work Phone: LIVER 25 U/L Normal 12-78 [facility] Work Phone: LIVER 0.10 mg/dL Normal 0.00-0.30 [facility] Work Phone: CBC WITH MANUAL DIFF ([id number]) Ordered By: [employer] on 01-24-2014 Basophils Auto #/vol (Bld) 0.0 {x10E3/uL} Normal 0.0-0.2 [facility] Work Phone: Basophils/100 WBC Auto (Bld) 1 % Normal 0-3 [facility] Work Phone: Eosinophils Auto #/vol (Bld) 0.1 {x10E3/uL} Normal 0.0-0.4 [facility] Work Phone: Eosinophils/100 WBC Auto (Bld) 1 % Normal 0-5 [facility] Work Phone: Erythrocyte distribution width Auto Ratio (RBC) 15.5 % Abnormal 12.3-15.4 [facility] Work Phone: Hematocrit Auto Volume Fraction (Bld) 36.2 % Normal 34.0-46.6 Comprehens [facility] Internal Medicine Work Phone: Hemoglobin mass conc (Bld) 11.9 g/dL Normal 11.1-15.9 [facility] Work Phone: Immature granulocytes #/vol (Bld) 0.0 {x10E3/uL} Normal 0.0-0.1 [facility] Work Phone: Immature granulocytes/100 WBC (Bld) 0 % Normal 0-2 [facility] Work Phone: Lymphocytes Auto #/vol (Bld) 1.9 {x10E3/uL} Normal 0.7-3.1 [facility] Work Phone: Lymphocytes/100 WBC Auto (Bld) 24 % Normal 14-46 [facility] Work Phone: MCH Auto Entitic mass (RBC) 27.2 pg Normal 26.6-33.0 [facility] Work Phone: MCHC Auto mass conc (RBC) 32.9 g/dL Normal 31.5-35.7 [facility] Work Phone: MCV Auto Entitic volume (RBC) 83 fL Normal 79-97 [facility] Work Phone: Monocytes Auto #/vol (Bld) 0.6 {x10E3/uL} Normal 0.1-0.9 [facility] Work Phone: Monocytes/100 WBC Auto (Bld) 7 % Normal 4-12 [facility] Work Phone: Neutrophils Auto #/vol (Bld) 5.3 {x10E3/uL} Normal 1.4-7.0 [facility] Work Phone: Neutrophils/100 WBC Auto (Bld) 67 % Normal 40-74 [facility] Work Phone: Platelets Auto #/vol (Bld) 277 {x10E3/uL} Normal 155-379 [facility] Work Phone: RBC Auto #/vol (Bld) 4.37 {x10E6/uL} Normal 3.77-5.28 [facility] Work Phone: WBC Auto #/vol (Bld) 7.9 {x10E3/uL} Normal 3.4-10.8 [facility] Work Phone: LIPID PANEL ([id number])Ordered B y: [employer] on 01-24-2014 Cholesterol in HDL mass conc 47 mg/dL Normal [facility] Work Phone: Comment on above: According to ATP-III Guidelines, HDL-C >59 mg/dL is considered anegative risk factor for CHD. Cholesterol in LDL mass conc 119 mg/dL Abnormal 0-99 [facility] Work Phone: Cholesterol in LDL/Cholesterol in HDL mass ratio 2.5 {ratio_units} Normal 0.0-3.2 [facility] Work Phone: Cholesterol in VLDL mass conc 27 mg/dL Normal 5-40 [facility] Work Phone: Cholesterol mass conc 193 mg/dL Normal 100-199 Com prehensive Internal Medicine Work Phone: Triglyceride mass conc 137 mg/dL Normal 0-149 [facility] Work Phone: METABOLIC PANEL, COMPREHENSI VE ([id number])Ordered By: [employer] on 01-24-2014 Albumin mass conc 4.0 g/dL Normal 3.5-5.5 Compreh ensive Internal Medicine Work Phone: Albumin/Globulin mass ratio 1.4 {ratio} Normal 1.1-2.5 [facility] Work Phone: ALP enzyme act/vol 73 [iU]/L Normal 39-117 [facility] Work Phone: ALT enzyme act/vol 17 [iU]/L Normal 0-32 Compre [facility] Internal Medicine Work Phone: AST enzyme act/vol 17 [iU]/L Normal 0-40 [facility] Internal Medicine Work Phone: Bilirubin mass conc 0.7 mg/dL Normal 0.0-1.2 Compr ensive Internal Medicine Work Phone: Calcium mass conc 9.4 mg/dL Normal 8.7-10.2 Compreh ensive Internal Medicine Work Phone: Chloride molar conc 102 mmol/L Normal 97-108 Compr ehensive Internal Medicine Work Phone: CO2 molar conc 25 mmol/L Normal 19-28 Comprehens [facility] Work Phone: Creatinine mass conc 1.14 mg/dL Abnormal 0.57-1.00 Comp rehensive Internal Medicine Work Phone: GFR/1.73 sq M predicted among blacks CKD-EPI vol rate/area (S/P/Bld) 64 mL/min/1.73 Normal Comprehensiv e Internal Medicine Work Phone: GFR/1.73 sq M predicted among non-blacks CKD-EPI vol rate/area (S/P/Bld) 55 mL/min/1.73 Abnormal [facility] Work Phone: Globulin Calculated mass conc (S) 2.9 g/dL Normal 1.5-4.5 [facility] Work Phone: Glucose mass conc 86 mg/dL Normal 65-99 Compreh ensive Internal Medicine Work Phone: Potassium molar conc 4.0 mmol/L Normal 3.5-5.2 Comp rehensive Internal Medicine Work Phone: Protein mass conc 6.9 g/dL Normal 6.0-8.5 Compreh ensive Internal Medicine Work Phone: Sodium molar conc 140 mmol/L Normal 134-144 Compreh ensive Internal Medicine Work Phone: Urea nitrogen mass conc 11 mg/dL Normal 6-24 [facility] Work Phone: Urea nitrogen/Creatinine mass ratio 10 mg/mg Normal 9-23 [facility] Work Phone: MICROALBUMINOrdered By: Syst [employer] on 01-24-2014 Albumin DL <= 20 mg/L mass conc (U) 3.1 ug/mL Normal 0.0-17.0 [facility] Work Phone: Albumin/Creatinine mass ratio (U) 1.6 {mg/g_creat} Normal 0.0-30.0 [facility] Work Phone: Creatinine mass conc (U) 199.1 mg/dL Normal 15.0-278.0 [facility] Work Phone: TSH ([id number])Ordered By: Syste m [employer] on 01-24-2014 Thyrotropin Qn 2.280 {uIU/mL} Normal 0.450-4.50 0 [facility] Work Phone: Vitamin D Hydroxy ([id number])Ord ered By: [employer] on 01-24-2014 25-Hydroxyvitamin D2+25-Hydroxyvitamin D3 mass conc 37.3 ng/mL Normal 30.0-100.0 [facility] Work Phone: Comment on above: Vitamin D deficiency has been defined by the [place] of[place]icine and an Endocrine Society practice guideline as alevel of serum 25-OH vitamin D less than 20 ng/mL (1,2).The Endocrine Society went on to further define vitamin Dinsufficiency as a level between 21 and 29 ng/mL (2).1. IOM ([place] of [employer]). 2010. Dietary reference intakes for calcium and D. [place]: The National Academies Press.2. Tatianna MF, Isac MEIER, Stanton TRUJILLO, et al. Evaluation, treatment, and prevention of vitamin D deficiency: an Endocrine Society clinical practice guideline. JCEM. 2010; 96(7):1911-30. HgA1C , Office ([id number])Ordere d By: Ines Reynoso on 12-31-2013 Hemoglobin A1c/Hemoglobin.total mass fraction (Bld) 6.2 % Normal 4.6 - 7.1 Comprehensiv e Internal Medicine Work Phone: ABDOMEN/PELVIS WITHOUT CONTO rdered By: [employer] on 07-22-2013 ABDOMEN/PELVIS WITHOUT CONT See Note Normal [facility] Work Phone: Comment on above: STUDY: CT ABDOMEN AN D PELVIS WITHOUT CONTRAST REASON FOR EXAM: Female, 53 years old. Hematuria. RADIATION DOSAGE (If Supplied By Facility): CTDIvol = ( 10.15 ) mGy, DLP=( 483.93 ) mGycm TECHNIQUE: Transaxial images were obtained from the dome of thediaphragmto the symphysis pubis without oral contrast, and without intravenouscontrast. Multiplanar coronal and sagittal images were reformatted. COMPARISON: None. FINDINGS:There is evidence of patchy infiltrate in the posterior segment of theleftlower lobe. Mild degree of left basilar atelectasis. The visualizedportions of the heart are within normal limits. Normal liver. There are surgical clips in the gallbladder fossaconsistentwith a prior cholecystectomy. Normal spleen. Normal pancreas. Normal bilateral adrenal glands. There is a 2 mm nonobstructive right intrarenal calculus in the midpole.Normal left kidney. There is a small hiatal hernia. Normal small intestine. Normal colon.The appendix is visualized and appears normal. There is scattered atherosclerotic calcification of the abdominal aorta,without a demonstrated aneurysm. Normal inferior vena cava. Normalretroperitoneum. Normal urinary bladder. Phleboliths are seen within the pelvis. Normal abdominal wall. There are mild degenerative changes of thevisualized lumbar spine. IMPRESSION:2 mm calculus in the midpole of the right kidney.Patchy left lower lobe infiltrate. Signed:Deny Hernandez M.D.July 22, 2013 at 2:02:09 PM [id number] Signed GP/GP If you are the referring physician and would like to consult with theradiologist who provided this interpretation, please contact Tracy Paez at [phone]. If this radiologist is unavailable, youwill be directed to another radiologist to assist. If you are a patient with a question regarding this report, pleasecontactyour referring physician directly. Professional Interpretation Provided By: [employer], Phone , These documents contain legally protected and confidential healthinformation intended only for the use of the individual or entity namedabove. If you are not the intended recipient, you are hereby notifiedthatany disclosure, copying, distribution, or other use of these documents isstrictly prohibited. If you have received this information in error,pleasenotify the sender immediately and arrange for the return or destructionofthese documents. Dictated on 07/22/13 140 by Kemar Hernandez MDribed on 07/22/13 140 by ITS IMPORTSign by Deny Hernandez MD on 07/22/13 140 Sign by: Deny Hernandez MD HgA1C , Office ([id number])Ordere d By: Nicky Thomas on 07-08-2013 Hemoglobin A1c/Hemoglobin.total mass fraction (Bld) 5.7 % Normal 4.6 - 7.1 [facility] Work Phone: CBC WITH MANUAL DIFF ([id number]) Ordered By: [employer] on 06-03-2013 Basophils Auto #/vol (Bld) 0.1 {x10E3/uL} Normal 0.0-0.2 [facility] Work Phone: Basophils/100 WBC Auto (Bld) 1 % Normal 0-3 [facility] Work Phone: Eosinophils Auto #/vol (Bld) 0.1 {x10E3/uL} Normal 0.0-0.4 [facility] Work Phone: Eosinophils/100 WBC Auto (Bld) 1 % Normal 0-7 [facility] Work Phone: Erythrocyte distribution width Auto Ratio (RBC) 15.7 % Abnormal 12.3-15.4 [facility] Work Phone: Hematocrit Auto Volume Fraction (Bld) 37.1 % Normal 34.0-46.6 [facility] Work Phone: Hemoglobin mass conc (Bld) 12.2 g/dL Normal 11.1-15.9 [facility] Work Phone: Immature granulocytes #/vol (Bld) 0.0 {x10E3/uL} Normal 0.0-0.1 [facility] Work Phone: Immature granulocytes/100 WBC (Bld) 0 % Normal 0-2 [facility] Work Phone: Lymphocytes Auto #/vol (Bld) 1.9 {x10E3/uL} Normal 0.7-4.5 [facility] Work Phone: Lymphocytes/100 WBC Auto (Bld) 26 % Normal 14-46 [facility] Work Phone: MCH Auto Entitic mass (RBC) 27.5 pg Normal 26.6-33.0 [facility] Work Phone: MCHC Auto mass conc (RBC) 32.9 g/dL Normal 31.5-35.7 [facility] Work Phone: MCV Auto Entitic volume (RBC) 84 fL Normal 79-97 [facility] Work Phone: Monocytes Auto #/vol (Bld) 0.7 {x10E3/uL} Normal 0.1-1.0 [facility] Work Phone: Monocytes/100 WBC Auto (Bld) 9 % Normal 4-13 [facility] Work Phone: Neutrophils Auto #/vol (Bld) 4.4 {x10E3/uL} Normal 1.8-7.8 [facility] Work Phone: Neutrophils/100 WBC Auto (Bld) 63 % Normal 40-74 [facility] Work Phone: Platelets Auto #/vol (Bld) 273 {x10E3/uL} Normal 140-415 [facility] Work Phone: RBC Auto #/vol (Bld) 4.44 {x10E6/uL} Normal 3.77-5.28 [facility] Work Phone: WBC Auto #/vol (Bld) 7.1 {x10E3/uL} Normal 4.0-10.5 [facility] Work Phone: LIPID PANEL ([id number])Ordered B y: [employer] on 06-03-2013 Cholesterol in HDL mass conc 47 mg/dL Normal [facility] Work Phone: Comment on above: According to ATP-III Guidelines, HDL-C >59 mg/dL is considered anegative risk factor for CHD. Cholesterol in LDL mass conc 114 mg/dL Abnormal 0-99 [facility] Work Phone: Cholesterol in LDL/Cholesterol in HDL mass ratio 2.4 {ratio_units} Normal 0.0-3.2 [facility] Work Phone: Cholesterol in VLDL mass conc 32 mg/dL Normal 5-40 [facility] Work Phone: Cholesterol mass conc 193 mg/dL Normal 100-199 Com prehensive [facility] Work Phone: Triglyceride mass conc 159 mg/dL Abnormal 0-149 [facility] Work Phone: METABOLIC PANEL, COMPREHENSI VE ([id number])Ordered By: [employer] on 06-03-2013 Albumin mass conc 4.0 g/dL Normal 3.5-5.5 [facility] ensive Internal Medicine Work Phone: Albumin/Globulin mass ratio 1.3 {ratio} Normal 1.1-2.5 [facility] Work Phone: ALP enzyme act/vol 78 [iU]/L Normal 42-107 [facility] Work Phone: ALT enzyme act/vol 17 [iU]/L Normal 0-32 [facility] Work Phone: AST enzyme act/vol 16 [iU]/L Normal 0-40 [facility] Work Phone: Bilirubin mass conc 0.6 mg/dL Normal 0.0-1.2 Compr ensive [facility] Work Phone: Calcium mass conc 8.9 mg/dL Normal 8.7-10.2 Compre[facility] ensive [facility] Work Phone: Chloride molar conc 101 mmol/L Normal 97-108 Compr ensive [facility] Work Phone: CO2 molar conc 23 mmol/L Normal 19-28 [facility] [place] Work Phone: Creatinine mass conc 1.02 mg/dL Abnormal 0.57-1.00 [facility] Phone: GFR/1.73 sq M predicted among blacks CKD-EPI vol rate/area (S/P/Bld) 74 mL/min/1.73 Normal [facility] Work Phone: GFR/1.73 sq M predicted among non-blacks CKD-EPI vol rate/area (S/P/Bld) 64 mL/min/1.73 Normal [facility] Work Phone: Globulin Calculated mass conc (S) 3.2 g/dL Normal 1.5-4.5 [facility] Work Phone: Glucose mass conc 95 mg/dL Normal 65-99 Compre[facility] ensive [facility] Work Phone: Potassium molar conc 3.8 mmol/L Normal 3.5-5.2 Comp rehensive [facility] Work Phone: Protein mass conc 7.2 g/dL Normal 6.0-8.5 [facility] Work Phone: Sodium molar conc 139 mmol/L Normal 134-144 [facility] Work Phone: Urea nitrogen mass conc 12 mg/dL Normal 6-24 [facility] Work Phone: Urea nitrogen/Creatinine mass ratio 12 mg/mg Normal 9-23 [facility] Work Phone: Microscopic ExaminationOrder ed By: [employer] on 06-03-2013 Bacteria LM.HPF #/area (Urine sed) Few Normal [facility] Work Phone: Epithelial cells LM.HPF #/area (Urine sed) 0-10 Normal 0 - 10 [facility] Work Phone: Mucus LM Ql (Urine sed) Present Normal [facility] Work Phone: RBC LM.HPF #/area (Urine sed) 0-3 Normal 0 - 3 [facility] Work Phone: WBC LM.HPF #/area (Urine sed) 0-5 Normal 0 - 5 [facility] Work Phone: URINALYSIS, W/ MICRO ([id number]) Ordered By: [employer] on 06-03-2013 Appearance Nom (U) Clear Normal Compre hensive [facility] Work Phone: Bilirubin Ql (U) Negative Normal Comprehe nsive [facility] Work Phone: Color Nom (U) Yellow Normal Comprehensi ve [facility] Work Phone: Glucose Ql (U) Negative Normal Comprehens [place] [facility] Work Phone: Hemoglobin Test strip Ql (U) Trace Abnormal [facility] Work Phone: Ketones Ql (U) Negative Normal Comprehens [place] Work Phone: Leukocyte esterase Test strip Ql (U) Negative Normal [facility] Work Phone: Microscopic observation LM Nom (Urine sed) See below: Normal [facility] Work Phone: Nitrite Test strip Ql (U) Negative Normal [facility] Work Phone: pH Test strip (U) 6.0 [pH] Normal 5.0-7.5 Compreh ensive [facility] Work Phone: Protein Test strip Ql (U) Negative Normal [facility] Work Phone: Specific gravity Relative Density (U) 1.024 1 Normal 1.005-1.03 0 [facility] Work Phone: Urobilinogen Test strip mass conc (U) 0.2 mg/dL Normal 0.0-1.9 [facility] Work Phone: HgA1C , Office ([id number])Ordere d By: Nicky Thomas on 03-04-2013 Hemoglobin A1c/Hemoglobin.total mass fraction (Bld) 6.0 % Normal 4.6 - 7.1 [facility] Work Phone: CBCMDOrdered By: Valentino auguste on 02-11-2013 CBCMD 1.3 % Normal 0-5 [facility] Work Phone: CBCMD 8.3 % Normal 0-10 [facility] Work Phone: CBCMD 21.3 % Normal 19-41 [facility] Work Phone: CBCMD 68.4 % Normal 47-70 [facility] Work Phone: CBCMD 11.0 fL Normal 6.2-12.0 [facility] Work Phone: CBCMD 266 K/mm3 Normal 150-450 [facility] Work Phone: CBCMD 44.4 fL Abnormal 35.1-43.9 [facility] Work Phone: CBCMD 14.8 % Abnormal 11.6-14.6 [facility] Work Phone: CBCMD 32.8 g/dL Normal 32-36 [facility] Work Phone: CBCMD 27.3 pg Normal 27.0-32.0 [facility] Work Phone: CBCMD 83.0 fL Normal 81-99 [facility] Work Phone: CBCMD 38.7 % Normal 37-47 [facility] Work Phone: CBCMD 12.7 g/dL Normal 12.0-15.0 [facility] Work Phone: CBCMD 4.66 {M/mm3} Normal 4.2-5.4 Comprehens[facility] e [facility] Work Phone: CBCMD 8.4 {k/mm3} Normal 4.4-11.0 [facility] Work Phone: CBCMD 0.10 % Abnormal 0.0-0.0 [facility] Work Phone: CBCMD 5.7 3/uL Normal 2.0-7.7 [facility] Work Phone: CBCMD 0.6 % Normal 0-1 [facility] Work Phone: CMPOrdered By: System Manage r on 02-11-2013 CMP 50 mL/min Abnormal [facility] Work Phone: CMP 7 1 Normal 5-15 [facility] Work Phone: CMP 28.0 mmol/L Normal 21.0-32.0 [facility] Work Phone: CMP 106 mmol/L Normal 98-107 [facility] Work Phone: CMP 3.8 mmol/L Normal 3.5-5.1 [facility] Work Phone: CMP 141 mmol/L Normal 136-145 [facility] Work Phone: CMP 0.70 mg/dL Normal 0.00-1.00 [facility] Work Phone: CMP 28 U/L Normal 12-78 [facility] Work Phone: CMP 87 U/L Normal 50-136 [facility] Work Phone: CMP 17 U/L Normal 15-37 [facility] Work Phone: CMP 0.9 {RATIO} Normal 0.9-2.4 [facility] Work Phone: CMP 8.9 mg/dL Normal 8.5-10.1 [facility] Work Phone: CMP 4.3 g/dL Abnormal 2.7-4.2 [facility] Work Phone: CMP 3.7 g/dL Normal 3.4-5.0 [facility] Work Phone: CMP 8.0 g/dL Normal 6.4-8.2 [facility] Work Phone: CMP 11.7 {RATIO} Normal 10-20 [facility] Work Phone: CMP 61 mL/min Normal [facility] Work Phone: CMP 1.2 mg/dL Abnormal 0.6-1.0 [facility] Work Phone: CMP 14 mg/dL Normal 7-18 [facility] Work Phone: CMP 90 mg/dL Normal 70-110 [facility] Work Phone: LIPIDOrdered By: Valentino auguste on 02-11-2013 LIPID 129 mg/dL Normal 0-130 [facility] Work Phone: LIPID 197 mg/dL Normal [facility] Work Phone: Comment on above: <200 mg/dL Desirable 200-240 mg/dL Borderline>240 mg/dL High Risk LIPID 44 mg/dL Normal [facility] Work Phone: Comment on above: Reference RangeHDL < 40 mg/dL Low HDL CholesterolHDL >or= 60 mg/dL High HDL Cholesterol LIPID 121 mg/dL Normal [facility] Work Phone: Comment on above: Serum Triglycerides Reference IntervalNormal <150 mg/dLBorderline high 150 - 199 mg/dLHigh 200 - 499 mg/dLVery High > or = 500 mg/dL LIPID 24 mg/dL Normal 5-40 [facility] Work Phone: MIACREOrdered By: System Man ager on 02-11-2013 MIACRE 4.1 {mg/g_CRE} Normal Comprehens [place] Work Phone: MIACRE 9.6 mg/L Normal [facility] Work Phone: MIACRE 233.8 mg/dL Normal [facility] Work Phone: UACOrdered By: System Man[employer] r on 02-11-2013 UAC 10 /ul Abnormal [facility] Work Phone: UAC 0 SEEN Normal 0-5 [facility] Work Phone: UAC Yellow Normal [facility] Work Phone: UAC 0-5 SEEN Normal 5-10 [facility] Work Phone: UAC Negative Normal [facility] Work Phone: UAC Normal Normal [facility] Work Phone: UAC 6 1 Normal 5.0 - 8.0 [facility] Work Phone: UAC 15 mg/dL Abnormal [facility] Work Phone: UAC 1.020 1 Normal 1.002-1.03 0 [facility] Work Phone: UAC Clear Normal [facility] Work Phone: Blood Glucose , Office ([phone])Ordered By: Nicky Thomas on 10-05-2012 Glucose Glucometer molar conc (BldC) 96 1 Normal [facility] Work Phone: HgA1C , Office ([id number])Ordere d By: Nicky Thomas on 10-05-2012 Hemoglobin A1c/Hemoglobin.total mass fraction (Bld) 5.9 % Normal 4.6 - 7.1 [facility] Work Phone: URINE CEE CULTURE-JORI COL C OUNT ([id number])Ordered By: [employer] on 10-05-2012 Bacteria identified Cx Nom (U) Final report Normal [facility] Work Phone: Bacteria identified Cx Nom (U) MUG Normal [facility] Work Phone: Comment on above: Mixed urogenital martin ra2,000 Colonies/mL Urinalysis, Office ([id number])Or dered By: Nicky Thomas on 10-05-2012 Bilirubin Ql (U) Negative Normal Comprehe nsive [facility] Work Phone: Glucose Test strip mass conc (U) Negative Normal [facility] Work Phone: Hemoglobin Test strip Ql (U) Non Hemolyzed Trace Normal Comprehensiv e [facility] Work Phone: Ketones Ql (U) Negative Normal Comprehens [place] Work Phone: Leukocyte esterase Test strip Ql (U) Negative Normal [facility] Work Phone: Nitrite Test strip Ql (U) Negative Normal [facility] Work Phone: pH Test strip (U) 7.5 [pH] Normal Compreh ensive [facility] Work Phone: Protein Test strip Ql (U) Negative Normal [facility] Work Phone: Specific gravity Relative Density (U) 1.020 1 Normal Comprehensi ve [facility] Work Phone: Urobilinogen mass/time (24H U) Normal Normal [facility] Work Phone: CBC WITH MANUAL DIFF ([id number]) Ordered By: [employer] on 09-21-2012 Basophils Auto #/vol (Bld) 0.0 {x10E3/uL} Normal 0.0-0.2 [facility] Work Phone: Basophils/100 WBC Auto (Bld) 1 % Normal 0-3 [facility] Work Phone: Eosinophils Auto #/vol (Bld) 0.1 {x10E3/uL} Normal 0.0-0.4 [facility] Work Phone: Eosinophils/100 WBC Auto (Bld) 2 % Normal 0-7 [facility] Work Phone: Erythrocyte distribution width Auto Ratio (RBC) 15.3 % Normal 12.3-15.4 [facility] Work Phone: Hematocrit Auto Volume Fraction (Bld) 36.3 % Normal 34.0-46.6 Comprehens [facility] Work Phone: Hemoglobin mass conc (Bld) 11.9 g/dL Normal 11.1-15.9 [facility] Work Phone: Immature granulocytes #/vol (Bld) 0.0 {x10E3/uL} Normal 0.0-0.1 [facility] Work Phone: Immature granulocytes/100 WBC (Bld) 0 % Normal 0-2 [facility] Work Phone: Lymphocytes Auto #/vol (Bld) 1.5 {x10E3/uL} Normal 0.7-4.5 [facility] Work Phone: Lymphocytes/100 WBC Auto (Bld) 21 % Normal 14-46 [facility] Work Phone: MCH Auto Entitic mass (RBC) 27.2 pg Normal 26.6-33.0 [facility] Work Phone: MCHC Auto mass conc (RBC) 32.8 g/dL Normal 31.5-35.7 [facility] Work Phone: MCV Auto Entitic volume (RBC) 83 fL Normal 79-97 [facility] Work Phone: Monocytes Auto #/vol (Bld) 0.6 {x10E3/uL} Normal 0.1-1.0 [facility] Work Phone: Monocytes/100 WBC Auto (Bld) 9 % Normal 4-13 [facility] Work Phone: Neutrophils Auto #/vol (Bld) 5.0 {x10E3/uL} Normal 1.8-7.8 [facility] Work Phone: Neutrophils/100 WBC Auto (Bld) 67 % Normal 40-74 [facility] Work Phone: Platelets Auto #/vol (Bld) 299 {x10E3/uL} Normal 140-415 [facility] Work Phone: RBC Auto #/vol (Bld) 4.38 {x10E6/uL} Normal 3.77-5.28 [facility] Work Phone: WBC Auto #/vol (Bld) 7.3 {x10E3/uL} Normal 4.0-10.5 [facility] Work Phone: FERRITIN ([id number])Ordered By: [employer] on 09-21-2012 Ferritin mass conc 14 ng/mL Normal 13-150 [facility] Work Phone: FOLIC ACID SERUM ([id number])Orde red By: [employer] on 09-21-2012 Folate mass conc 6.2 ng/mL Normal [facility] Internal [facility] Work Phone: Comment on above: A serum folate dieudonne ntration of less than 3.1 ng/mL isconsidered to represent clinical deficiency. IRON ([id number])Ordered By: [employer] on 09-21-2012 Iron mass conc 33 ug/dL Abnormal 35-155 Comprehens [facility] Internal Medicine Work Phone: LDH (LD) (LACTATE DEHYDROGEN ASE) ([id number])Ordered By: [employer] on 09-21-2012 LDH enzyme act/vol 189 [iU]/L Normal 0-214 [facility] Work Phone: LIPID PANEL ([id number])Ordered B y: [employer] on 09-21-2012 Cholesterol in HDL mass conc 49 mg/dL Normal [facility] Work Phone: Comment on above: According to ATP-III Guidelines, HDL-C >59 mg/dL is considered anegative risk factor for CHD. Cholesterol in LDL mass conc 124 mg/dL Abnormal 0-99 [facility] Work Phone: Cholesterol in LDL/Cholesterol in HDL mass ratio 2.5 {ratio_units} Normal 0.0-3.2 [facility] Work Phone: Cholesterol in VLDL mass conc 27 mg/dL Normal 5-40 [facility] Work Phone: Cholesterol mass conc 200 mg/dL Abnormal 100-199 [facility] prehensive Internal Medicine Work Phone: Triglyceride mass conc 136 mg/dL Normal 0-149 [facility] Work Phone: METABOLIC PANEL, COMPREHENSI VE ([id number])Ordered By: [employer] on 09-21-2012 Albumin mass conc 3.8 g/dL Normal 3.2-5.6 [facility] ensive Internal Medicine Work Phone: Albumin/Globulin mass ratio 1.2 {ratio} Normal 0.7-2.0 [facility] Work Phone: ALP enzyme act/vol 81 [iU]/L Normal 25-150 [facility] Internal Medicine Work Phone: ALT enzyme act/vol 17 [iU]/L Normal 0-32 [facility] Internal Medicine Work Phone: AST enzyme act/vol 18 [iU]/L Normal 0-40 [facility] Internal Medicine Work Phone: Bilirubin mass conc 0.6 mg/dL Normal 0.0-1.2 Compr ensive Internal Medicine Work Phone: Calcium mass conc 8.7 mg/dL Normal 8.7-10.2 [facility] Work Phone: Chloride molar conc 101 mmol/L Normal 97-108 [facility] Internal Medicine Work Phone: CO2 molar conc 26 mmol/L Normal 20-32 Comprehens [place] Work Phone: Creatinine mass conc 1.05 mg/dL Abnormal 0.57-1.00 [facility] Work Phone: GFR/1.73 sq M predicted among blacks CKD-EPI vol rate/area (S/P/Bld) 72 mL/min/1.73 Normal Comprehensiv e [facility] Medicine Work Phone: GFR/1.73 sq M predicted among non-blacks CKD-EPI vol rate/area (S/P/Bld) 62 mL/min/1.73 Normal [facility] Work Phone: Globulin Calculated mass conc (S) 3.3 g/dL Normal 2.0-4.5 [facility] Work Phone: Glucose mass conc 86 mg/dL Normal 65-99 Compreh ensive [facility] Medicine Work Phone: Potassium molar conc 4.0 mmol/L Normal 3.5-5.2 Comp rehensive [facility] Medicine Work Phone: Protein mass conc 7.1 g/dL Normal 6.0-8.5 Compreh ensive [facility] Medicine Work Phone: Sodium molar conc 139 mmol/L Normal 134-144 Compre[facility] ensive [facility] Work Phone: Urea nitrogen mass conc 9 mg/dL Normal 6-24 [facility] Work Phone: Urea nitrogen/Creatinine mass ratio 9 mg/mg Normal 9-23 [facility] Work Phone: Protein Electro, Random Urin eOrdered By: [employer] on 09-21-2012 Albumin/Protein.total Elph mass fraction (U) 21.9 % Normal [facility] Work Phone: Alpha 1 globulin/Protein.tota l Elph mass fraction (U) 5.2 % Normal [facility] Work Phone: Alpha 2 globulin/Protein.tota l Elph mass fraction (U) 23.4 % Normal [facility] Work Phone: Beta globulin/Protein.tota l Elph mass fraction (U) 31.4 % Normal [facility] Work Phone: Gamma globulin/Protein.tota l Elph mass fraction (U) 18.2 % Normal [facility] Work Phone: Protein mass conc (U) 10.3 mg/dL Normal 0.0-15.0 Com prehensive [facility] Work Phone: Protein.monoclonal/Pr otein.total Elph mass fraction (U) Not Observed Normal [facility] Work Phone: Protein Electro.,SOrdered By : [employer] on 09-21-2012 Alpha 1 globulin Elph mass conc 0.2 g/dL Normal 0.1-0.4 [facility] Work Phone: Alpha 2 globulin Elph mass conc 0.6 g/dL Normal 0.4-1.2 [facility] Work Phone: Beta globulin Elph mass conc 1.1 g/dL Normal 0.6-1.3 [facility] Work Phone: Gamma globulin Elph mass conc 1.4 g/dL Normal 0.5-1.6 [facility] Work Phone: Laboratory comment Pj (Report) SPRCS Normal [facility] Work Phone: Comment on above: Protein electrophore sis scan will follow via computer, mail, orcourier delivery. Protein.monoclonal Elph mass conc Not Observed Normal [facility] Work Phone: RETICULOCYTE COUNT MANUL ([phone])Ordered By: [employer] on 09-21-2012 Reticulocytes/100 RBC Auto (Bld) 1.3 % Normal 0.6-2.6 [facility] Work Phone: VITAMIN B-12 (CYANOCOBALAMIN ) ([id number])Ordered By: [employer] on 09-21-2012 Cobalamin (Vitamin B12) mass conc 517 pg/mL Normal 211-946 [facility] Work Phone: HgA1C , Office ([id number])Ordere d By: Nicky Thomas on 07-03-2012 Hemoglobin A1c/Hemoglobin.total mass fraction (Bld) 6.1 % Normal 4.6 - 7.1 Comprehensiv e [facility] Medicine Work Phone: KNEE,4 OR MORE VIEWSOrdered By: [employer] on 07-03-2012 KNEE,4 OR MORE VIEWS See Note Normal Comp rehensive Internal Medicine Work Phone: Comment on above: PROCEDURES: X-RAY - RIGHT KNEE REASON FOR EXAM: Female, 52 years old. One year history of knee pain. TECHNIQUE: Four views of the knee. COMPARISON: None. FINDINGS:There is mild degenerative arthrosis of the medial femorotibialcompartment. Normal lateral femorotibial compartment. There is milddegenerative arthrosis of the patellofemoral articulation. Normal visualized distal femur. Normal visualized proximal tibia andfibula. Normal proximal tibiofibular articulation. Tiny joint effusion. IMPRESSION:Degenerative arthrosis. Signed:Deny Hernandez M.D.July 03, 2012 at 4:19:15 PM [id number] Signed GP/GP If you are the referring physician and would like to consult with theradiologist who provided this interpretation, please contact Tracy Paez at [phone]. If this radiologist is unavailable, youwill be directed to another radiologist to assist. If you are a patient with a question regarding this report, pleasecontactyour referring physician directly. Professional Interpretation Provided By: [employer], Phone , These documents contain legally protected and confidential healthinformation intended only for the use of the individual or entity namedabove. If you are not the intended recipient, you are hereby notifiedthatany disclosure, copying, distribution, or other use of these documents isstrictly prohibited. If you have received this information in error,pleasenotify the sender immediately and arrange for the return or destructionofthese documents. Dictated on 07/03/12 0904 by Toshia Hernandez MDranscribed on 07/04/12 1035 by ITS IMPORTSign by Deny Hernandez MD on 07/04/12 1036 Sign by: Deny Hernandez MD CBCMDOrdered By: Valentino auguste on 06-20-2012 Eosinophils/100 WBC Auto (Bld) 4 % Normal 0-5 [facility] Work Phone: Erythrocyte distribution width Auto Ratio (RBC) 15.4 % Abnormal 11.6-14.6 [facility] Work Phone: Hematocrit Auto Volume Fraction (Bld) 35.1 % Abnormal 37-47 [facility] Work Phone: Hemoglobin mass conc (Bld) 11.4 g.dL Abnormal 12.0-15.0 [facility] Work Phone: Comment on above: Please note: Revised HEMOGLOBIN REFERENCE RANGES Reference Range effective 12. MCH Auto Entitic mass (RBC) 27.3 pg Normal 27.0-32.0 [facility] Work Phone: MCHC Auto mass conc (RBC) 32.6 g/dL Normal 32-36 [facility] Work Phone: MCV Auto Entitic volume (RBC) 83.7 fL Normal 81-99 [facility] Work Phone: Neutrophils Auto #/vol (Bld) 4.9 3/uL Normal 2.0-7.7 [facility] Work Phone: Platelets Auto #/vol (Bld) 243 10*3/uL Normal 150-450 [facility] Work Phone: RBC Auto #/vol (Bld) 4.20 {M/mm3} Normal 4.2-5.4 Co m[facility] Work Phone: WBC Auto #/vol (Bld) 7.4 10*3/uL Normal 4.4-11.0 Com prehens[facility] Work Phone: CBCMD ADEQUATE Normal [facility] Work Phone: CBCMD 100 1 Normal [facility] Work Phone: CBCMD 75 % Abnormal 47-70 [facility] Work Phone: CBCMD 17 % Abnormal 19-41 [facility] Work Phone: CBCMD 4 % Normal 0-10 [facility] Work Phone: CBCMD NORM C+C Normal [facility] Work Phone: CMPOrdered By: System Manage r on 06-20-2012 Albumin mass conc 3.4 g/dL Normal 3.4-5.0 Compreh ens[facility] Work Phone: Albumin/Globulin mass ratio 0.8 {RATIO} Abnormal 0.9-2.4 [facility] Work Phone: ALP enzyme act/vol 76 U/L Normal 50-136 Compre [facility] Work Phone: ALT enzyme act/vol 26 U/L Normal 12-78 Compre [facility] Work Phone: Anion gap 3 molar conc 7 mmol/L Normal 5-15 [facility] Work Phone: AST enzyme act/vol 13 U/L Abnormal 15-37 Compre hens[facility] Work Phone: Bilirubin mass conc 0.70 mg/dL Normal 0.00-1.00 Compr ehensive [facility] Work Phone: Calcium mass conc 9.3 mg/dL Normal 8.5-10.1 Compreh ens[facility] Work Phone: Chloride molar conc 102 mmol/L Normal 98-107 Compr ehens[facility] Work Phone: CO2 molar conc 29.0 mmol/L Normal 21.0-32.0 Comprehen sive [facility] Work Phone: Creatinine mass conc 1.1 mg/dL Abnormal 0.6-1.0 Comp rehensive [facility] Work Phone: GFR/1.73 sq M predicted among blacks MDRD vol rate/area (S/P/Bld) 68 mL/min/{1.73_m2} Normal Comprehe nsive [facility] Work Phone: GFR/1.73 sq M.predicted MDRD vol rate/area 56 mL/min/{1.73_m2} Abnormal Comprehensiv e [facility] Work Phone: Globulin Calculated mass conc (S) 4.5 g/dL Abnormal 2.7-4.2 [facility] Work Phone: Glucose mass conc 91 mg/dL Normal 70-110 Compreh ens[facility] Work Phone: Potassium molar conc 3.7 mmol/L Normal 3.5-5.1 Comp rehensive [facility] Work Phone: Protein mass conc 7.9 g/dL Normal 6.4-8.2 Compreh ens[facility] Work Phone: Sodium molar conc 138 mmol/L Normal 136-145 Compreh ens[facility] Work Phone: Urea nitrogen mass conc 9 mg/dL Normal 7-18 [facility] Work Phone: Urea nitrogen/Creatinine mass ratio 8.2 {RATIO} Abnormal 10-20 [facility] Work Phone: LIPIDOrdered By: System Chely auguste on 06-20-2012 Cholesterol in HDL mass conc 48 mg/dL Normal [facility] Work Phone: Comment on above: Reference Range HDL <40 mg/dL Low HDL Cholesterol HDL >or= 60 mg/dL High HDL Cholesterol Cholesterol in LDL mass conc 131 mg/dL Abnormal 0-130 [facility] Work Phone: Cholesterol in VLDL mass conc 30 mg/dL Normal 5-40 [facility] Work Phone: Cholesterol mass conc 209 mg/dL Abnormal Com prehensive [facility] Work Phone: Comment on above: <200 mg/dL Desirable 200-240 mg/dL Borderline >240 mg/dL High Risk Triglyceride mass conc 148 mg/dL Normal [facility] Work Phone: Comment on above: Serum Triglycerides Reference Interval Normal <150 mg/dL Borderline high 150 - 199 mg/dL High 200 - 499 mg/dL Very High > or = 500 mg/dL MIACREOrdered By: System Lauro prince on 06-20-2012 MIACRE 5.0 {mg/g_CRE} Normal Comprehens [facility] Work Phone: MIACRE 7.1 mg/L Normal [facility] Work Phone: MIACRE 139.6 mg/dL Normal [facility] Work Phone: BILAT SCRN DIGITAL & CADOrde red By: [employer] on 05-24-2012 BILAT SCRN DIGITAL & CAD See Note Normal [facility] Work Phone: Comment on above: MAMMOGRAPHY - BILATE RAL SCREENING REASON FOR EXAM: Female, 52 years old. Routine annual screeningexamination. PERTINENT HISTORY: Non-contributory. TECHNIQUE: Digital examination. Mediolateral oblique (MLO) andcraniocaudad (CC) views of both breasts were obtained. CAD: CAD wasperformed on this study. COMPARISON: Comparison is made with prior studies dated June 22nd March 10, 2005. FINDINGS:The breast composition is composed of scattered fibroglandular densities. There are no dominant masses or suspicious calcifications. No other significant abnormalities are identified. There has been nosignificant change since the prior study. IMPRESSION:Stable bilateral screening mammogram. Yearly follow-up recommended. (A) ASSESSMENT CATEGORY:BIRADS Category 2: Benign finding(s). A letter regarding these resultswill be sent to the patient by the facility within 30 days. Approximately 10% of breast cancers are not detected by mammography. Anormal mammogram should not delay biopsy of a clinically suspiciousabnormality. Signed:Deny Hernandez M.D.May 24, 2012 at 3:47:05 PM [id number] Signed GP/GP If you are the referring physician and would like to consult with theradiologist who provided this interpretation, please contact Tracy Paez at [phone]. If this radiologist is unavailable, youwill be directed to another radiologist to assist. If you are a patient with a question regarding this report, pleasecontactyour referring physician directly. Professional Interpretation Provided By: [employer], Phone , These documents contain legally protected and confidential healthinformation intended only for the use of the individual or entity namedabove. If you are not the intended recipient, you are hereby notifiedthatany disclosure, copying, distribution, or other use of these documents isstrictly prohibited. If you have received this information in error,pleasenotify the sender immediately and arrange for the return or destructionofthese documents. Dictated on 05/24/12 1519 by Kemar Hernandez MDribed on 05/24/12 1601 by ITS IMPORTSign by Deny Hernandez MD on 05/24/12 1603 Sign by: Deny Hernandez MD BMPOrdered By: System Manage r on 04-02-2012 Anion gap 3 molar conc 10 mmol/L Normal 5-15 [facility] Work Phone: Calcium mass conc 8.5 mg/dL Normal 8.5-10.1 Compreh ensive [facility] Work Phone: Chloride molar conc 102 mmol/L Normal 98-107 Compr ehensive [facility] Work Phone: CO2 molar conc 28.0 mmol/L Normal 21.0-32.0 Comprehen sive [facility] Work Phone: Creatinine mass conc 1.1 mg/dL Abnormal 0.6-1.0 Comp rehensive [facility] Work Phone: GFR/1.73 sq M predicted among blacks MDRD vol rate/area (S/P/Bld) 68 mL/min/{1.73_m2} Normal Comprehe nsive [facility] Work Phone: GFR/1.73 sq M.predicted MDRD vol rate/area 56 mL/min/{1.73_m2} Abnormal Comprehensiv e [facility] Work Phone: Glucose mass conc 85 mg/dL Normal 70-110 Compreh ensive [facility] Work Phone: Potassium molar conc 3.8 mmol/L Normal 3.5-5.1 Comp rehensive [facility] Work Phone: Sodium molar conc 140 mmol/L Normal 136-145 Compreh ensive [facility] Work Phone: Urea nitrogen mass conc 11 mg/dL Normal 7-18 [facility] Work Phone: Urea nitrogen/Creatinine mass ratio 10.0 {RATIO} Normal 10-20 [facility] Work Phone: HgA1C , Office ([phone])Ordere d By: Ines Reynoso on 03-26-2012 Hemoglobin A1c/Hemoglobin.total mass fraction (Bld) 6.1 % Normal 4.6 - 7.1 [facility] Work Phone: CBCMDOrdered By: Valentino auguste on 01-16-2012 Eosinophils/100 WBC Auto (Bld) 1 % Normal 0-5 [facility] Work Phone: Erythrocyte distribution width Auto Ratio (RBC) 15.3 % Abnormal 11.6-14.6 [facility] Work Phone: Hematocrit Auto Volume Fraction (Bld) 36.2 % Abnormal 37-47 [facility]prehens [facility] Work Phone: Hemoglobin mass conc (Bld) 12.1 g/dL Normal 12.0-16.0 [facility] Work Phone: MCH Auto Entitic mass (RBC) 27.7 pg Normal 27.0-32.0 [facility] Work Phone: MCHC Auto mass conc (RBC) 33.3 g/dL Normal 32-36 [facility] Work Phone: MCV Auto Entitic volume (RBC) 83.2 fL Normal 81-99 [facility] Work Phone: Neutrophils Auto #/vol (Bld) 4.6 3/uL Normal 2.0-7.7 [facility] Work Phone: Platelets Auto #/vol (Bld) 270 10*3/uL Normal 150-450 [facility] Work Phone: RBC Auto #/vol (Bld) 4.35 {M/mm3} Normal 4.2-5.4 [facility] Work Phone: WBC Auto #/vol (Bld) 6.7 10*3/uL Normal 4.4-11.0 [facility] prehensive [facility] Work Phone: CBCMD ADEQUATE Normal [facility] Work Phone: CBCMD NORM C+C Normal [facility] Work Phone: CBCMD 100 1 Normal [facility] Work Phone: CBCMD 2 % Normal 0-10 [facility] Work Phone: CBCMD 21 % Normal 19-41 [facility] Work Phone: CBCMD 1 % Normal 0-5 [facility] Work Phone: CBCMD 73 % Abnormal 47-70 [facility] Work Phone: CMPOrdered By: System Manage r on 01-16-2012 Albumin mass conc 3.5 g/dL Normal 3.4-5.0 Compreh ensive [facility] Work Phone: Albumin/Globulin mass ratio 0.8 {RATIO} Abnormal 0.9-2.4 [facility] Work Phone: ALP enzyme act/vol 82 U/L Normal 50-136 [facility] Work Phone: ALT enzyme act/vol 18 U/L Normal 12-78 [facility] Work Phone: Anion gap 3 molar conc 5 mmol/L Normal 5-15 [facility] Work Phone: AST enzyme act/vol 10 U/L Abnormal 15-37 Compre [facility] Work Phone: Bilirubin mass conc 0.50 mg/dL Normal 0.00-1.00 Compr ensive [facility] Work Phone: Calcium mass conc 8.5 mg/dL Normal 8.5-10.1 Compreh [facility] Work Phone: Chloride molar conc 108 mmol/L Abnormal 98-107 Compr [facility] Work Phone: CO2 molar conc 28.0 mmol/L Normal 21.0-32.0 Comprehen [facility] Work Phone: Creatinine mass conc 1.0 mg/dL Normal 0.6-1.0 [facility] Work Phone: GFR/1.73 sq M predicted among blacks MDRD vol rate/area (S/P/Bld) 75 mL/min/{1.73_m2} Normal Comprehe nsive [facility] Work Phone: GFR/1.73 sq M.predicted MDRD vol rate/area 62 mL/min/{1.73_m2} Normal Comprehensiv e [facility] Work Phone: Globulin Calculated mass conc (S) 4.3 g/dL Abnormal 2.7-4.2 [facility] Work Phone: Glucose mass conc 94 mg/dL Normal 70-110 Compreh ensive [facility] Work Phone: Potassium molar conc 4.1 mmol/L Normal 3.5-5.1 [facility] Work Phone: Protein mass conc 7.8 g/dL Normal 6.4-8.2 Compreh ensive [facility] Work Phone: Sodium molar conc 141 mmol/L Normal 136-145 Compreh ensive [facility] Work Phone: Urea nitrogen mass conc 10 mg/dL Normal 7-18 [facility] Work Phone: Urea nitrogen/Creatinine mass ratio 10.0 {RATIO} Normal 10-20 [facility] Work Phone: LIPIDOrdered By: Valentino auguste on 01-16-2012 Cholesterol in HDL mass conc 53 mg/dL Normal [facility] Work Phone: Comment on above: Reference Range HDL <40 mg/dL Low HDL Cholesterol HDL >or= 60 mg/dL High HDL Cholesterol Cholesterol in LDL mass conc 124 mg/dL Normal 0-130 [facility] Work Phone: Cholesterol in VLDL mass conc 25 mg/dL Normal 5-40 [facility] Work Phone: Cholesterol mass conc 202 mg/dL Abnormal Com prehensive [facility] Work Phone: Comment on above: <200 mg/dL Desirable 200-240 mg/dL Borderline >240 mg/dL High Risk Triglyceride mass conc 126 mg/dL Normal [facility] Work Phone: Comment on above: Serum Triglycerides Reference Interval Normal <150 mg/dL Borderline high 150 - 199 mg/dL High 200 - 499 mg/dL Very High > or = 500 mg/dL Blood Glucose , Office ([phone])Ordered By: Nicky Thomas on 10-26-2011 Glucose Glucometer molar conc (BldC) 93 1 Normal [facility] Work Phone: HgA1C , Office ([phone])Ordere d By: Greta Gonzalez on 10-26-2011 Hemoglobin A1c/Hemoglobin.total mass fraction (Bld) 5.8 % Normal 4.6 - 7.1 Comprehensiv e [facility] Work Phone: LIPIDOrdered By: Valentino auguste on 09-19-2011 Cholesterol in HDL mass conc 48 mg/dL Normal [facility] Work Phone: Comment on above: Reference Range HDL <40 mg/dL Low HDL Cholesterol HDL >or= 60 mg/dL High HDL Cholesterol Cholesterol in LDL mass conc 99 mg/dL Normal 0-130 [facility] Work Phone: Cholesterol in VLDL mass conc 37 mg/dL Normal 5-40 [facility] Work Phone: Cholesterol mass conc 184 mg/dL Normal Com prehensive [facility] Work Phone: Comment on above: <200 mg/dL Desirable 200-240 mg/dL Borderline >240 mg/dL High Risk Triglyceride mass conc 185 mg/dL Normal [facility] Work Phone: Comment on above: Serum Triglycerides Reference Interval Normal <150 mg/dL Borderline high 150 - 199 mg/dL High 200 - 499 mg/dL Very High > or = 500 mg/dL MICROALBOrdered By: Valentino hanson on 09-19-2011 MICROALB 11.2 mg/L Normal [facility] Work Phone: MICROALB 7.0 {mg/g_CRE} Normal Comprehens [facility] Work Phone: MICROALB 158.2 mg/dL Normal [facility] Work Phone: Blood Glucose , Office ([phone])Ordered By: Nicky Thomas on 06-29-2011 Glucose Glucometer molar conc (BldC) 80 1 Normal [facility] Work Phone: HgA1C , Office ([phone])Ordere d By: Nicky Thomas on 06-29-2011 Hemoglobin A1c/Hemoglobin.total mass fraction (Bld) 5.7 % Normal 4.6 - 7.1 Comprehens[facility] Work Phone: Blood Glucose , Office ([phone])Ordered By: Nicky Thomas on 02-08-2011 Glucose Glucometer molar conc (BldC) 96 1 Normal [facility] Work Phone: HgA1C , Office ([phone])Ordere d By: Ines Reynoso on 02-08-2011 Hemoglobin A1c/Hemoglobin.total mass fraction (Bld) 5.4 % Normal 4.6 - 7.1 Comprehensiv e [facility] Work Phone: Blood Glucose , Office ([phone])Ordered By: Nicky Thomas on 10-25-2010 Glucose Glucometer molar conc (BldC) 128 1 Normal [facility] Work Phone: COMP METABOLICOrdered By: Edvin stem [employer] on 09-13-2010 Albumin mass conc 3.7 g/dL Normal 3.4-5.0 Compreh ensive [facility] Work Phone: Albumin/Globulin mass ratio 0.9 {RATIO} Normal 0.9-2.4 [facility] Work Phone: ALP enzyme act/vol 81 U/L Normal 50-136 [facility] Work Phone: ALT enzyme act/vol 29 U/L Normal 12-78 [facility] Work Phone: Anion gap 3 molar conc 10 mmol/L Normal 5-15 [facility] Work Phone: AST enzyme act/vol 16 U/L Normal 15-37 Compre [facility] Work Phone: Bilirubin mass conc 0.70 mg/dL Normal 0.00-1.00 Compr ensive [facility] Work Phone: Calcium mass conc 8.7 mg/dL Normal 8.5-10.1 Compreh ensive [facility] Work Phone: Chloride molar conc 109 mmol/L Abnormal 98-107 Compr ehensive [facility] Work Phone: CO2 molar conc 24.0 mmol/L Normal 21.0-32.0 Comprehen [facility] Work Phone: Creatinine mass conc 1.2 mg/dL Abnormal 0.6-1.0 Comp rehensive [facility] Work Phone: GFR/1.73 sq M predicted among blacks MDRD vol rate/area (S/P/Bld) 62 mL/min/{1.73_m2} Normal Comprehe nsive [facility] Work Phone: GFR/1.73 sq M.predicted MDRD vol rate/area 51 mL/min/{1.73_m2} Abnormal Comprehensiv e [facility] Work Phone: Globulin Calculated mass conc (S) 4.1 g/dL Normal 2.7-4.2 [facility] Work Phone: Glucose mass conc 69 mg/dL Abnormal 70-110 Compreh ensive [facility] Work Phone: Potassium molar conc 4.2 mmol/L Normal 3.5-5.1 Comp rehensive [facility] Work Phone: Protein mass conc 7.8 g/dL Normal 6.4-8.2 Compreh ensive [facility] Work Phone: Sodium molar conc 143 mmol/L Normal 136-145 Compreh ensive [facility] Work Phone: Urea nitrogen mass conc 12 mg/dL Normal 7-18 [facility] Work Phone: Urea nitrogen/Creatinine mass ratio 10.0 {RATIO} Normal 10-20 [facility] Work Phone: LIPIDOrdered By: Valentino auguste on 09-13-2010 Cholesterol in HDL mass conc 55 mg/dL Normal [facility] Work Phone: Comment on above: Reference Range HDL <40 mg/dL Low HDL Cholesterol HDL >or= 60 mg/dL High HDL Cholesterol Cholesterol in LDL mass conc 101 mg/dL Normal 0-130 [facility] Work Phone: Cholesterol in VLDL mass conc 14 mg/dL Normal 5-40 [facility] Work Phone: Cholesterol mass conc 170 mg/dL Normal Com prehensive [facility] Work Phone: Comment on above: <200 mg/dL Desirable 200-240 mg/dL Borderline >240 mg/dL High Risk Triglyceride mass conc 69 mg/dL Normal [facility] Work Phone: Comment on above: Serum Triglycerides Reference Interval Normal <150 mg/dL Borderline high 150 - 199 mg/dL High 200 - 499 mg/dL Very High > or = 500 mg/dL Blood Glucose , Office ([phone])Ordered By: Nicky Thomas on 07-26-2010 Glucose Glucometer molar conc (BldC) 108 1 Normal [facility] Work Phone: BILAT SCRN DIGITAL & CADOrde red By: [employer] on 06-22-2010 BILAT SCRN DIGITAL & CAD See Note Normal [facility] Work Phone: Comment on above: Exam Number: [id number] MAMMOGRAPHY - BILATERAL SCREENING INDICATION:Routine annual screening examination. PERTINENT HISTORY:Non-contributory. TECHNIQUE:Digital examination. Mediolateral oblique (MLO) and craniocaudad(CC) views of both breasts were obtained. CAD was performed on thisstudy. COMPARISON:Comparison is made with prior study dated March 10, 2009. FINDINGS:The breast composition is composed of scattered fibroglandulardensities. There are no masses or suspicious microcalcifications. No other significant abnormalities are identified. There has beenno significant change since the prior study. IMPRESSION:Normal bilateral screening mammogram. Yearly follow-up recommended. ASSESSMENT CATEGORY:Category 2: Benign finding(s) Approximately 10% of breast cancers are not detected by mammography.A normal mammogram should not delay biopsy of a clinicallysuspicious abnormality.This addendum is being created for the purpose of attaching a ResultCode to this exam.ADDENDUM: [id number] HPBI/MDS Reported By: DENY HERNANDEZ METABOLICOrdered By: Edvin stem [employer] on 06-07-2010 Albumin mass conc 3.2 g/dL Abnormal 3.4-5.0 [facility] Work Phone: Albumin/Globulin mass ratio 0.8 {RATIO} Abnormal 0.9-2.4 [facility] Work Phone: ALP enzyme act/vol 84 U/L Normal 50-136 [facility] Work Phone: ALT enzyme act/vol 19 U/L Normal 12-78 [facility] Work Phone: Anion gap 3 molar conc 6 mmol/L Normal 5-15 [facility] Work Phone: AST enzyme act/vol 9 U/L Abnormal 15-37 [facility] Work Phone: Bilirubin mass conc 0.50 mg/dL Normal 0.00-1.00 [facility] Work Phone: Calcium mass conc 8.6 mg/dL Normal 8.5-10.1 Compreh ensive [facility] Work Phone: Chloride molar conc 106 mmol/L Normal 98-107 Compr ehensive [facility] Work Phone: CO2 molar conc 28.0 mmol/L Normal 21.0-32.0 Comprehen sive [facility] Work Phone: Creatinine mass conc 1.0 mg/dL Normal 0.6-1.0 Comp rehensive [facility] Work Phone: GFR/1.73 sq M predicted among blacks MDRD vol rate/area (S/P/Bld) 76 mL/min/{1.73_m2} Normal Comprehe nsive [facility] Medicine Work Phone: GFR/1.73 sq M.predicted MDRD vol rate/area 63 mL/min/{1.73_m2} Normal Comprehensiv e [facility] Work Phone: Globulin Calculated mass conc (S) 4.1 g/dL Normal 2.7-4.2 [facility] Work Phone: Glucose mass conc 87 mg/dL Normal 70-110 Compreh ensive [facility] Work Phone: Potassium molar conc 4.1 mmol/L Normal 3.5-5.1 Comp rehensive [facility] Work Phone: Protein mass conc 7.3 g/dL Normal 6.4-8.2 Compreh ensive [facility] Work Phone: Sodium molar conc 140 mmol/L Normal 136-145 Compreh ensive [facility] Work Phone: Urea nitrogen mass conc 8 mg/dL Normal 7-18 [facility] Work Phone: Urea nitrogen/Creatinine mass ratio 8.0 {RATIO} Abnormal 10-20 [facility] Work Phone: D BILIOrdered By: System Man ager on 06-07-2010 D BILI 0.13 mg/dL Normal 0.00-0.30 [facility] Work Phone: LIPIDOrdered By: System Chely molina on 06-07-2010 Cholesterol in HDL mass conc 57 mg/dL Normal [facility] Work Phone: Comment on above: Reference RangeHDL < 40 mg/dL Low HDL CholesterolHDL >or= 60 mg/dL High HDL Cholesterol Cholesterol in LDL mass conc 117 mg/dL Normal 0-130 [facility] Work Phone: Cholesterol in VLDL mass conc 17 mg/dL Normal 5-40 [facility] Work Phone: Cholesterol mass conc 191 mg/dL Normal Com prehensive [facility] Work Phone: Comment on above: <200 mg/dL Desirable 200-240 mg/dL Borderline>240 mg/dL High Risk Triglyceride mass conc 84 mg/dL Normal [facility] Work Phone: Comment on above: Serum Triglycerides Reference IntervalNormal <150 mg/dLBorderline high 150 - 199 mg/dLHigh 200 - 499 mg/dLVery High > or = 500 mg/dL MICROALBOrdered By: Valentino hanson on 06-07-2010 MICROALB 11.9 {mg/g_CRE} Normal Comprehen sive [facility] Work Phone: MICROALB 128.1 mg/dL Normal [facility] Work Phone: MICROALB 15.3 mg/L Normal [facility] Work Phone: Blood Glucose , Office ([phone])Ordered By: Nicky Thomas on 04-13-2010 Glucose Glucometer molar conc (BldC) 80 1 Normal [facility] Work Phone: HgA1C , Office ([phone])Ordere d By: Nicky Thomas on 04-13-2010 Hemoglobin A1c/Hemoglobin.total mass fraction (Bld) 6.5 % Normal 4.6 - 7.1 Comprehensiv e [facility] Work Phone: CBCD,SMEAR DIFFOrdered By: Cole ystem [employer] on 03-24-2010 Eosinophils/100 WBC Auto (Bld) 3 % Normal 0-5 [facility] Work Phone: Erythrocyte distribution width Auto Ratio (RBC) 14.5 % Normal 11.6-14.6 [facility] Work Phone: Hematocrit Auto Volume Fraction (Bld) 36.0 % Abnormal 37-47 [facility] Work Phone: Hemoglobin mass conc (Bld) 11.9 g/dL Abnormal 12.0-16.0 [facility] Work Phone: MCH Auto Entitic mass (RBC) 27.8 pg Normal 27.0-32.0 [facility] Work Phone: MCHC Auto mass conc (RBC) 33.0 g/dL Normal 32-36 [facility] Work Phone: MCV Auto Entitic volume (RBC) 84.1 fL Normal 81-99 [facility] Work Phone: Neutrophils Auto #/vol (Bld) 4.8 3/uL Normal 2.0-7.7 [facility] Work Phone: Platelets Auto #/vol (Bld) 254 10*3/uL Normal 150-450 [facility] Work Phone: RBC Auto #/vol (Bld) 4.28 {M/mm3} Normal 4.2-5.4 [facility] Work Phone: WBC Auto #/vol (Bld) 7.0 10*3/uL Normal 4.4-11.0 [facility] Work Phone: CBCD,SMEAR DIFF SeeNote Normal [facility] Internal Medicine Work Phone: Comment on above: Result: NORM C+C Result: ADEQUATE Result: Not Observed CBCD,SMEAR DIFF 3 % Normal 0-10 [facility] Internal Medicine Work Phone: CBCD,SMEAR DIFF 27 % Normal 19-41 [facility] Medicine Work Phone: CBCD,SMEAR DIFF 100 1 Normal [facility] Medicine Work Phone: CBCD,SMEAR DIFF 67 % Normal 47-70 [facility] Internal Medicine Work Phone: COMP METABOLICOrdered By: Edvin stem [employer] on 03-24-2010 Albumin mass conc 3.4 g/dL Normal 3.4-5.0 [facility] Work Phone: Albumin/Globulin mass ratio 0.8 {RATIO} Abnormal 0.9-2.4 [facility] Work Phone: ALP enzyme act/vol 91 U/L Normal 50-136 Compre [facility] Internal Medicine Work Phone: ALT enzyme act/vol 17 U/L Normal 12-78 [facility] Internal Medicine Work Phone: Anion gap 3 molar conc 4 mmol/L Abnormal 5-15 [facility] Work Phone: AST enzyme act/vol 9 U/L Abnormal 15-37 [facility]pre [facility] Internal Medicine Work Phone: Bilirubin mass conc 0.60 mg/dL Normal 0.00-1.00 [facility]pr [facility] Work Phone: Calcium mass conc 8.7 mg/dL Normal 8.5-10.1 [facility] Work Phone: Chloride molar conc 106 mmol/L Normal 98-107 Compr ehensive Internal Medicine Work Phone: CO2 molar conc 29.0 mmol/L Normal 21.0-32.0 [facility] Work Phone: Creatinine mass conc 1.1 mg/dL Abnormal 0.6-1.0 Comp [facility] Work Phone: GFR/1.73 sq M predicted among blacks MDRD vol rate/area (S/P/Bld) 68 mL/min/{1.73_m2} Normal Comprehe nsive Internal Medicine Work Phone: GFR/1.73 sq M.predicted MDRD vol rate/area 56 mL/min/{1.73_m2} Abnormal [facility] Work Phone: Globulin Calculated mass conc (S) 4.3 g/dL Abnormal 2.7-4.2 [facility] Work Phone: Glucose mass conc 96 mg/dL Normal 70-110 [facility] Work Phone: Potassium molar conc 4.3 mmol/L Normal 3.5-5.1 Comp rehensive Internal Medicine Work Phone: Protein mass conc 7.7 g/dL Normal 6.4-8.2 [facility] Work Phone: Sodium molar conc 139 mmol/L Normal 136-145 [facility] Work Phone: Urea nitrogen mass conc 14 mg/dL Normal 7-18 [facility] Work Phone: Urea nitrogen/Creatinine mass ratio 12.7 {RATIO} Normal 10-20 [facility] Work Phone: LIPIDOrdered By: Valentino auguste on 03-24-2010 Cholesterol in HDL mass conc 50 mg/dL Normal [facility] Work Phone: Comment on above: Reference RangeHDL < 40 mg/dL Low HDL CholesterolHDL >or= 60 mg/dL High HDL Cholesterol Cholesterol in LDL mass conc 115 mg/dL Normal 0-130 [facility] Work Phone: Cholesterol in VLDL mass conc 24 mg/dL Normal 5-40 [facility] Work Phone: Cholesterol mass conc 189 mg/dL Normal Com prehensive [facility] Medicine Work Phone: Comment on above: <200 mg/dL Desirable 200-240 mg/dL Borderline>240 mg/dL High Risk Triglyceride mass conc 122 mg/dL Normal [facility] Work Phone: Comment on above: Serum Triglycerides Reference IntervalNormal <150 mg/dLBorderline high 150 - 199 mg/dLHigh 200 - 499 mg/dLVery High > or = 500 mg/dL PROT.[id number] By: Cole Hernandez on 03-24-2010 PROT.[id number] 34.4 % Normal [facility] Work Phone: PROT.[id number] 11.6 mg/dL Normal 0.0-15.0 [facility] Work Phone: PROT.[id number] Comment Normal [facility] Work Phone: Comment on above: Protein electrophore sis scan will follow via computer,mail, or concrete analyst delivery.Performed at: [address] [id number] Director: Amanda Barron MD The SPE pattern appe ars essentially unremarkable. Evidenceof monoclonal protein is not apparent.Protein electrophoresis scan will follow via computer,mail, or concrete analyst delivery. PROT.[id number] 24.4 % Normal Comprehen [facility] Work Phone: PROT.[id number] 2.6 % Normal [facility]pre[facility] Work Phone: PROT.[id number] 27.1 % Normal [facility]pre[facility] Work Phone: PROT.[id number] 11.3 % Normal Comprehen [facility] Work Phone: SPE [id number] By: [employer] on 03-24-2010 SPE [id number] 0.2 g/dL Normal 0.1-0.4 [facility] Work Phone: SPE [id number] 0.7 g/dL Normal 0.4-1.2 [facility] Work Phone: SPE [id number] 1.4 g/dL Normal 0.5-1.6 [facility] Work Phone: SPE [id number] 1.1 1 Normal 0.7-2.0 [facility] Work Phone: SPE [id number] 3.4 g/dL Normal 2.0-4.5 [facility] Work Phone: SPE [id number] 7.0 g/dL Normal 6.0-8.5 [facility] Work Phone: SPE [id number] 3.6 g/dL Normal 3.2-5.6 [facility] Work Phone: SPE [id number] 1.1 g/dL Normal 0.6-1.3 [facility] Work Phone: Blood Glucose , Office ([phone])Ordered By: Nicky Thomas on 11-09-2009 Glucose Glucometer molar conc (BldC) 73 1 Normal [facility] Work Phone: HgA1C , Office ([phone])Ordere d By: Nicky Thomas on 11-09-2009 Hemoglobin A1c/Hemoglobin.total mass fraction (Bld) 5.7 % Normal 4.6 - 7.1 [facility] Work Phone: COMP METABOLICOrdered By: Sy stem [employer] on 06-23-2009 Albumin mass conc 3.3 g/dL Abnormal 3.4-5.0 Compre[facility] Work Phone: Albumin/Globulin mass ratio 0.8 {RATIO} Abnormal 0.9-2.4 [facility] Work Phone: ALP enzyme act/vol 80 U/L Normal 50-136 Compre [facility] Internal Medicine Work Phone: ALT enzyme act/vol 14 U/L Abnormal 30-65 [facility] Work Phone: Anion gap 3 molar conc 12 mmol/L Normal 5-15 [facility] Work Phone: AST enzyme act/vol 7 U/L Abnormal 15-37 [facility] Work Phone: Bilirubin mass conc 1.00 mg/dL Normal 0.00-1.00 Compr ens[facility] Work Phone: Calcium mass conc 8.5 mg/dL Normal 8.5-10.1 Compre[facility] Work Phone: Chloride molar conc 106 mmol/L Normal 98-107 Compr ehensive [facility] Medicine Work Phone: CO2 molar conc 25.0 mmol/L Normal 21.0-32.0 [facility] Work Phone: Creatinine mass conc 1.0 mg/dL Normal 0.6-1.0 [facility] Work Phone: GFR/1.73 sq M predicted among blacks MDRD vol rate/area (S/P/Bld) 76 mL/min/{1.73_m2} Normal Comprehe nsive Internal Medicine Work Phone: GFR/1.73 sq M.predicted MDRD vol rate/area 63 mL/min/{1.73_m2} Normal [facility] e [facility] Work Phone: Globulin Calculated mass conc (S) 4.4 g/dL Abnormal 2.7-4.2 [facility] Work Phone: Glucose mass conc 83 mg/dL Normal 70-110 Compre[facility] Work Phone: Potassium molar conc 3.9 mmol/L Normal 3.5-5.1 Comp rehensive [facility] Medicine Work Phone: Protein mass conc 7.7 g/dL Normal 6.4-8.2 [facility] Work Phone: Sodium molar conc 143 mmol/L Normal 136-145 [facility] Work Phone: Urea nitrogen mass conc 9 mg/dL Normal 7-18 [facility] Work Phone: Urea nitrogen/Creatinine mass ratio 9.0 {RATIO} Abnormal 10-20 [facility] Work Phone: LIPIDOrdered By: Valentino auguste on 06-23-2009 Cholesterol in HDL mass conc 49 mg/dL Normal [facility] Work Phone: Comment on above: Reference Range HDL <40 mg/dL Low HDL Cholesterol HDL >or= 60 mg/dL High HDL Cholesterol Cholesterol in LDL mass conc 124 mg/dL Normal 0-130 [facility] Work Phone: Cholesterol in VLDL mass conc 19 mg/dL Normal 5-40 [facility] Work Phone: Cholesterol mass conc 192 mg/dL Normal Com prehensive [facility] Work Phone: Comment on above: <200 mg/dL Desirable 200-240 mg/dL Borderline >240 mg/dL High Risk Triglyceride mass conc 96 mg/dL Normal [facility] Work Phone: Comment on above: Serum Triglycerides Reference Interval Normal <150 mg/dL Borderline high 150 - 199 mg/dL High 200 - 499 mg/dL Very High > or = 500 mg/dL MICROALBOrdered By: Valentino hansno on 06-23-2009 MICROALB 24.7 mg/L Normal [facility] Work Phone: MICROALB 250.4 mg/dL Normal [facility] Work Phone: MICROALB 9.8 {mg/g_CRE} Normal [facility] Work Phone: Blood Glucose , Office ([phone])Ordered By: Annette Auguste on 05-04-2009 Glucose Glucometer molar conc (BldC) 105 1 Normal [facility] Work Phone: HgA1C , Office ([phone])Ordere d By: Annette Auguste on 05-04-2009 Hemoglobin A1c/Hemoglobin.total mass fraction (Bld) 5.7 % Normal 4.6 - 7.1 [facility] Work Phone: COMP METABOLICOrdered By: [employer] stem [employer]ater on 03-17-2009 Albumin mass conc 3.2 g/dL Abnormal 3.4-5.0 [facility] Work Phone: Albumin/Globulin mass ratio 0.8 {RATIO} Abnormal 0.9-2.4 [facility] Work Phone: ALP enzyme act/vol 80 U/L Normal 50-136 [facility] Internal Medicine Work Phone: ALT enzyme act/vol 14 U/L Abnormal 30-65 [facility] Internal Medicine Work Phone: Anion gap 3 molar conc 7 mmol/L Normal 5-15 [facility] Work Phone: AST enzyme act/vol 9 U/L Abnormal 15-37 [facility] Internal Medicine Work Phone: Bilirubin mass conc 0.80 mg/dL Normal 0.00-1.00 Compr [facility] Internal Medicine Work Phone: Calcium mass conc 8.6 mg/dL Normal 8.5-10.1 Compreh [facility] Internal Medicine Work Phone: Chloride molar conc 104 mmol/L Normal 98-107 Compr [facility] Internal Medicine Work Phone: CO2 molar conc 26.0 mmol/L Normal 21.0-32.0 Comprehen sive [facility] Medicine Work Phone: Creatinine mass conc 1.1 mg/dL Abnormal 0.6-1.0 Comp rehensive Internal Medicine Work Phone: GFR/1.73 sq M predicted among blacks MDRD vol rate/area (S/P/Bld) 69 mL/min/{1.73_m2} Normal Comprehe nsive Internal Medicine Work Phone: GFR/1.73 sq M.predicted MDRD vol rate/area 57 mL/min/{1.73_m2} Abnormal [facility] Work Phone: Globulin Calculated mass conc (S) 4.2 g/dL Normal 2.7-4.2 [facility] Work Phone: Glucose mass conc 75 mg/dL Normal 70-110 Compre[facility] ens[facility] Work Phone: Potassium molar conc 3.9 mmol/L Normal 3.5-5.1 Comp rehensive Internal Medicine Work Phone: Protein mass conc 7.4 g/dL Normal 6.4-8.2 Com[facility] Work Phone: Sodium molar conc 137 mmol/L Normal 136-145 [facility] Work Phone: Urea nitrogen mass conc 7 mg/dL Normal 7-18 [facility] Work Phone: Urea nitrogen/Creatinine mass ratio 6.4 {RATIO} Abnormal 10-20 [facility] Work Phone: LIPIDOrdered By: Valentino auguste on 03-17-2009 Cholesterol in HDL mass conc 47 mg/dL Normal [facility] Work Phone: Comment on above: Reference Range HDL <40 mg/dL Low HDL Cholesterol HDL >or= 60 mg/dL High HDL Cholesterol Cholesterol in LDL mass conc 104 mg/dL Normal 0-130 [facility] Work Phone: Cholesterol in VLDL mass conc 19 mg/dL Normal 5-40 [facility] Work Phone: Cholesterol mass conc 170 mg/dL Normal Com prehensive [facility] Medicine Work Phone: Comment on above: <200 mg/dL Desirable 200-240 mg/dL Borderline >240 mg/dL High Risk Triglyceride mass conc 96 mg/dL Normal [facility] Work Phone: Comment on above: Serum Triglycerides Reference Interval Normal <150 mg/dL Borderline high 150 - 199 mg/dL High 200 - 499 mg/dL Very High > or = 500 mg/dL MICROALBOrdered By: System M anager on 03-17-2009 MICROALB 119.0 mg/L Normal [facility] Work Phone: MICROALB 214.9 mg/dL Normal [facility] Work Phone: MICROALB 55.3 {mg/g_CRE} Abnormal Comprehen sive [facility] Medicine Work Phone: BILAT SCRN DIGITAL & CADOrde red By: [employer] on 03-10-2009 BILAT SCRN DIGITAL & CAD See Note Normal [facility] Work Phone: Comment on above: Exam Number: [id number] MAMMOGRAM, BILATERAL SCREENING DIGITAL AND CAD HISTORYRoutine screening. Full field digital images were obtained in mediolateral oblique,craniocaudal, and cleavage projections. CAD images were reviewed. The current study is compared to the examinations of January 18, 2007,and January 03, 2008. There is moderately dense fibroglandular parenchyma present. There isno skin thickening or retraction, architectural distortion, or clusterof suspicious microcalcifications. There is no dominant mass orsignificant interval change seen. If there is no suspicious palpableabnormality, followup mammogram in 1 year is recommended. IMPRESSIONThere is no radiographic evidence of malignancy identified. FINAL ASSESSMENTBIRADS Category 2 - Benign. A letter regarding these results has been sent to the patient. This interpretation was rendered by a radiologist certified under theMammography Quality Standards Act of 1992 (MQSA). The mammograms werealso examined with computer-aided detection software ([employer] Reported By: DREW CHAPA M.D. Blood Glucose , Office ([phone])Ordered By: Nicky Thomas on 12-08-2008 Glucose Glucometer molar conc (BldC) 84 1 Normal [facility] Work Phone: HgA1C , Office ([phone])Ordere d By: Ines Reynoso on 12-08-2008 Hemoglobin A1c/Hemoglobin.total mass fraction (Bld) 5.6 % Normal 4.6 - 7.1 [facility] Internal Medicine Work Phone: CBCD,SMEAR DIFFOrdered By: Cole ystem [employer] on 09-24-2008 Erythrocyte distribution width Auto Ratio (RBC) 14.6 % Normal 11.6-14.6 [facility] Work Phone: Hematocrit Auto Volume Fraction (Bld) 35.1 % Abnormal 37-47 [facility] Internal Medicine Work Phone: Hemoglobin mass conc (Bld) 11.6 g/dL Abnormal 12.0-16.0 [facility] Work Phone: MCH Auto Entitic mass (RBC) 27.4 pg Normal 27.0-32.0 [facility] Work Phone: MCHC Auto mass conc (RBC) 33.1 g/dL Normal 32-36 [facility] Work Phone: MCV Auto Entitic volume (RBC) 82.8 fL Normal 81-99 [facility] Work Phone: Platelets Auto #/vol (Bld) 285 10*3/uL Normal 150-450 [facility] Work Phone: RBC Auto #/vol (Bld) 4.24 {M/mm3} Normal 4.2-5.4 [facility] Work Phone: WBC Auto #/vol (Bld) 7.4 10*3/uL Normal 4.4-11.0 [facility] prehensive Internal Medicine Work Phone: CBCD,SMEAR DIFF 73 % Abnormal 47-70 [facility] Internal Medicine Work Phone: CBCD,SMEAR DIFF 23 % Normal 19-41 [facility] Internal Medicine Work Phone: CBCD,SMEAR DIFF 100 1 Normal [facility] Internal Medicine Work Phone: CBCD,SMEAR DIFF SeeNote Normal [facility] Internal Medicine Work Phone: Comment on above: Result: ADEQUATE Result: NORM C+C CBCD,SMEAR DIFF 4 % Normal 0-10 [facility] Internal Medicine Work Phone: COMP METABOLICOrdered By: Edvin stem [employer] on 09-24-2008 Albumin mass conc 3.4 g/dL Normal 3.4-5.0 Compreh [facility] Internal Medicine Work Phone: Albumin/Globulin mass ratio 0.9 {RATIO} Normal 0.9-2.4 [facility] Work Phone: ALP enzyme act/vol 79 U/L Normal 50-136 [facility] Internal Medicine Work Phone: ALT enzyme act/vol 29 U/L Abnormal 30-65 [facility] Internal Medicine Work Phone: Anion gap 3 molar conc 6 mmol/L Normal 5-15 [facility] Work Phone: AST enzyme act/vol 15 U/L Normal 15-37 [facility] Internal Medicine Work Phone: Bilirubin mass conc 0.88 mg/dL Normal 0.00-1.00 Compr [facility] Internal Medicine Work Phone: Calcium mass conc 8.7 mg/dL Normal 8.5-10.1 Compreh [facility] Internal Medicine Work Phone: Chloride molar conc 103 mmol/L Normal 98-107 Compr [facility] Internal Medicine Work Phone: CO2 molar conc 26.5 mmol/L Normal 21.0-32.0 [facility] Work Phone: Creatinine mass conc 0.9 mg/dL Normal 0.6-1.0 [facility] Work Phone: Globulin Calculated mass conc (S) 4.0 g/dL Normal 2.7-4.2 [facility] Work Phone: Glucose mass conc 84 mg/dL Normal 70-110 [facility] Work Phone: Potassium molar conc 3.7 mmol/L Normal 3.5-5.1 [facility] Work Phone: Protein mass conc 7.4 g/dL Normal 6.4-8.2 Compreh ensive [facility] Medicine Work Phone: Sodium molar conc 135 mmol/L Abnormal 136-145 Compreh ens[facility] Work Phone: Urea nitrogen mass conc 7 mg/dL Normal 7-18 [facility] Work Phone: Urea nitrogen/Creatinine mass ratio 7.8 {RATIO} Abnormal - [facility] Work Phone: LIPIDOrdered By: Valentino auguste on 09-24-2008 Cholesterol in HDL mass conc 49 mg/dL Normal [facility] Work Phone: Comment on above: Reference Range HDL <40 mg/dL Low HDL Cholesterol HDL >or= 60 mg/dL High HDL Cholesterol Cholesterol in LDL mass conc 111 mg/dL Normal 0-130 [facility] Work Phone: Cholesterol in VLDL mass conc 22 mg/dL Normal 5-40 [facility] Work Phone: Cholesterol mass conc 182 mg/dL Normal Com prehensive [facility] Medicine Work Phone: Comment on above: <200 mg/dL Desirable 200-240 mg/dL Borderline >240 mg/dL High Risk Triglyceride mass conc 108 mg/dL Normal [facility] Work Phone: Comment on above: Serum Triglycerides Reference Interval Normal <150 mg/dL Borderline high 150 - 199 mg/dL High 200 - 499 mg/dL Very High > or = 500 mg/dL Blood Glucose , Office ([phone])Ordered By: Manju White on 08-11-2008 Glucose Glucometer molar conc (BldC) 98 1 Normal [facility] Work Phone: HgA1C , Office ([phone])Ordere d By: Ines Reynoso on 08-11-2008 Hemoglobin A1c/Hemoglobin.total mass fraction (Bld) 5.7 % Normal 4.6 - 7.1 [facility] Work Phone: HPV, high-riskOrdered By: Sy stem [employer] on 05-06-2008 HPV 16+18+31+33+35+39+45+ 51+52+56+58+59+68 DNA Probe+sig amp Ql (Cvx) Negative Normal [facility] Work Phone: Comment on above: This high-risk HPV t est detects thirteen high-risk types(16/18/31/33/35/39/45/51/52/56/58/59/68) without differentiation. . Pap Lb, rfx HPV all pthOrder ed By: [employer] on 05-06-2008 Microscopic observation Other stain Nom (Unsp spec) . Normal [facility] Work Phone: Pathology report final diagnosis Narrative [facility] Abnormal [facility] Work Phone: Comment on above: EPITHELIAL CELL ABNO RMALITY.ATYPICAL SQUAMOUS CELLS OF UNDETERMINED SIGNIFICANCE.Suggest follow up as clinically appropriate.Satisfactory for evaluation. Endocervical and/or squamous metaplasticcells (endocervical component) are present.V72.31 ; Routine gynecological examinationCyntpeng Saldana, Faro Dealer (ASCP)Mary Del Angel MD, Pathologist Pap Lb, rfx HPV all pth [facility] Normal [facility] Work Phone: Comment on above: [phone] Pap smear is a screening test designed to aid in the detection ofpremalignant and malignant conditions of the uterine cervix. It is not adiagnostic procedure and should not be used as the sole means of detectingcervical cancer. Both false-positive and false-negative reports do occur. .See below for HPV DNA testing results. . Blood Glucose , Office ([phone])Ordered By: Nicky Thomas on 04-09-2008 Glucose Glucometer molar conc (BldC) 106 1 Normal [facility] Work Phone: HgA1C , Office ([phone])Ordere d By: Nicky Thomas on 04-09-2008 Hemoglobin A1c/Hemoglobin.total mass fraction (Bld) 5.5 % Normal 4.6 - 7.1 [facility] Work Phone: BILAT SCRN DIGITAL & CADOrde red By: [employer] on 01-03-2008 BILAT SCRN DIGITAL & CAD See Note Normal [facility] Work Phone: Comment on above: Exam Number: [id number] BILATERAL SCREENING DIGITAL MAMMOGRAM CLINICAL INFORMATIONScreening. Bilateral digital mammography was performed as a screening exam. Standard CC and MLO views were obtained. Comparison is made to previous studies of January 18, 2007, and February. FINDINGSThere has been no significant change in the overall appearance of thebreasts. There is somewhat heterogeneous, moderately dense parenchymabilaterally. No dominant masses are evident and no suspicious groupsof calcifications are seen. There are a few punctate benign calcifications present. No areas of spiculation or distortion arefound. IMPRESSION1. Stable appearance of the breasts with no specific mammographicevidence of malignancy. Annual mammography is recommended.2. BIRADS 2 with 1-year followup. A letter regarding the results has been sent to the patient. This interpretation was rendered by a radiologist certified underthe Mammography Quality Standards Act of 1992 (MQSA). The mammogramswere also examined with computer-aided detection software([employer] Reported By: DAYANARA REA M.D. Blood Glucose , Office ([phone])Ordered By: Nicky Thomas on 12-25-2007 Glucose Glucometer molar conc (BldC) 98 1 Normal [facility] Work Phone: CBC WITH MANUAL DIFF ([id number]) Ordered By: Ines Reynoso on 12-25-2007 Basophils Auto #/vol (Bld) 0.1 {x10E3/uL} Normal 0.0-0.2 [facility] Work Phone: Basophils/100 WBC Auto (Bld) 1 % Normal 0-3 [facility] Work Phone: Eosinophils Auto #/vol (Bld) 0.2 {x10E3/uL} Normal 0.0-0.4 [facility] Work Phone: Eosinophils/100 WBC Auto (Bld) 2 % Normal 0-7 [facility] Work Phone: Erythrocyte distribution width Auto Ratio (RBC) 14.7 % Normal 11.7-15.0 [facility] Work Phone: Hematocrit Auto Volume Fraction (Bld) 34.2 % Normal 34.0-44.0 Comprehens [facility] Work Phone: Hemoglobin mass conc (Bld) 11.7 g/dL Normal 11.5-15.0 [facility] Work Phone: Lymphocytes Auto #/vol (Bld) 2.0 {x10E3/uL} Normal 0.7-4.5 [facility] Work Phone: Lymphocytes/100 WBC Auto (Bld) 25 % Normal 14-46 [facility] Work Phone: MCH Auto Entitic mass (RBC) 28.8 pg Normal 27.0-34.0 [facility] Work Phone: MCHC Auto mass conc (RBC) 34.1 g/dL Normal 32.0-36.0 [facility] Work Phone: MCV Auto Entitic volume (RBC) 85 fL Normal 80-98 [facility] Work Phone: Monocytes Auto #/vol (Bld) 0.6 {x10E3/uL} Normal 0.1-1.0 [facility] Work Phone: Monocytes/100 WBC Auto (Bld) 8 % Normal 4-13 [facility] Work Phone: Neutrophils Auto #/vol (Bld) 5.2 {x10E3/uL} Normal 1.8-7.8 [facility] Work Phone: Neutrophils/100 WBC Auto (Bld) 64 % Normal 40-74 [facility] Work Phone: Platelets Auto #/vol (Bld) 310 {x10E3/uL} Normal 140-415 [facility] Work Phone: RBC Auto #/vol (Bld) 4.05 {x10E6/uL} Normal 3.80-5.10 [facility] Work Phone: WBC Auto #/vol (Bld) 8.1 {x10E3/uL} Normal 4.0-10.5 [facility] Work Phone: HEPATIC FUNCTION PANEL ([phone])Ordered By: Ines Reynoso on 12-25-2007 Albumin mass conc 3.8 g/dL Normal 3.5-5.5 [facility] Work Phone: ALP enzyme act/vol 71 [iU]/L Normal 25-150 Compre [facility] Internal Medicine Work Phone: ALT enzyme act/vol 20 [iU]/L Normal 0-40 Compre [facility] Internal Medicine Work Phone: AST enzyme act/vol 19 [iU]/L Normal 0-40 Compre [facility] Internal Medicine Work Phone: Bilirubin mass conc 0.6 mg/dL Normal 0.1-1.2 Compr ehensive [facility] Medicine Work Phone: Bilirubin.direct mass conc 0.14 mg/dL Normal 0.00-0.40 [facility] Work Phone: Protein mass conc 7.1 g/dL Normal 6.0-8.5 Compreh ensive [facility] Work Phone: HgA1C , Office ([phone])Ordere d By: Ines Fast on 12-25-2007 Hemoglobin A1c/Hemoglobin.total mass fraction (Bld) 5.8 % Normal 4.6 - 7.1 Comprehensiv e [facility] Work Phone: LIPID PANEL ([id number])Ordered B y: Ines Fast on 12-25-2007 Cholesterol in HDL mass conc 45 mg/dL Normal 40-59 [facility] Work Phone: Cholesterol in LDL mass conc 89 mg/dL Normal 0-99 [facility] Work Phone: Cholesterol in LDL/Cholesterol in HDL mass ratio 2.0 {ratio_units} Normal 0.0-3.2 [facility] Work Phone: Cholesterol in VLDL mass conc 23 mg/dL Normal 5-40 [facility] Work Phone: Cholesterol mass conc 157 mg/dL Normal 100-199 Com prehensive [facility] Work Phone: Triglyceride mass conc 115 mg/dL Normal 0-149 [facility] Work Phone: MICROALBUMINOrdered By: Debr a Fast on 12-25-2007 Albumin DL <= 20 mg/L mass conc (U) 18.2 ug/mL Abnormal 0.0-17.0 [facility] Work Phone: TSH ([id number])Ordered By: Ines Fast on 12-25-2007 Thyrotropin Qn 2.621 {uIU/mL} Normal 0.350-5.50 0 [facility] Work Phone: URINALYSIS W/O MICRO ([id number]) Ordered By: Ines Fast on 12-25-2007 Appearance Nom (U) Clear Normal Compre hensive [facility] Work Phone: Bilirubin Ql (U) Negative Normal Comprehe nsive Internal Medicine Work Phone: Color Nom (U) Yellow Normal Comprehensi ve Internal Medicine Work Phone: Glucose Ql (U) Negative Normal Comprehens [facility] Work Phone: Hemoglobin Test strip Ql (U) Negative Normal [facility] Work Phone: Ketones Ql (U) Negative Normal Comprehens [facility] Work Phone: Leukocyte esterase Test strip Ql (U) Negative Normal [facility] Work Phone: Microscopic observation LM Nom (Urine sed) MICRON Normal [facility] Work Phone: Comment on above: Microscopic follows if indicated. Nitrite Test strip Ql (U) Negative Normal [facility] Work Phone: pH Test strip (U) 6.0 [pH] Normal 5.0-7.5 Compreh ensive [facility] Work Phone: Protein Test strip Ql (U) Negative Normal [facility] Work Phone: Specific gravity Relative Density (U) 1.026 1 Normal 1.005-1.03 0 [facility] Work Phone: Urobilinogen Test strip mass conc (U) 0.2 mg/dL Normal 0.0-1.9 Comprehensiv e [facility] Work Phone: COMP METABOLICOrdered By: Sy stem [employer] on 03-07-2007 Albumin mass conc 3.6 g/dL Normal 3.4-5.0 Compreh ensive [facility] Work Phone: Albumin/Globulin mass ratio 0.9 {RATIO} Normal 0.9-2.4 [facility] Work Phone: ALP enzyme act/vol 68 U/L Normal 50-136 [facility] Internal Medicine Work Phone: ALT enzyme act/vol 31 [iU]/L Normal 30-65 [facility] Internal Medicine Work Phone: Anion gap 3 molar conc 8 mmol/L Normal 5-15 [facility] Work Phone: AST enzyme act/vol 15 U/L Normal 15-37 [facility] Internal Medicine Work Phone: Bilirubin mass conc 0.79 mg/dL Normal 0.00-1.00 Compr [facility] Internal Medicine Work Phone: Calcium mass conc 8.4 mg/dL Abnormal 8.5-10.1 Compreh [facility] Internal Medicine Work Phone: Chloride molar conc 108 mmol/L Abnormal 98-107 Compr [facility] Internal Medicine Work Phone: CO2 molar conc 26.8 mmol/L Normal 22.0-29.0 [facility] Work Phone: Creatinine mass conc 1.0 mg/dL Normal 0.6-1.0 [facility] Internal Medicine Work Phone: Globulin Calculated mass conc (S) 3.8 g/dL Abnormal 2.3-3.5 [facility] Work Phone: Glucose mass conc 79 mg/dL Normal 70-110 [facility] Work Phone: Potassium molar conc 3.5 mmol/L Normal 3.5-5.1 [facility] Work Phone: Protein mass conc 7.4 g/dL Normal 6.4-8.2 Compreh [facility] Internal Medicine Work Phone: Sodium molar conc 143 mmol/L Normal 136-145 Compreh [facility] Internal Medicine Work Phone: Urea nitrogen mass conc 12 mg/dL Normal 7-18 [facility] Work Phone: Urea nitrogen/Creatinine mass ratio 12.0 {RATIO} Normal 10-20 [facility] Work Phone: COMPLETE UAOrdered By: Mikael m [employer] on 03-07-2007 COMPLETE UA 0 SEEN Normal [facility] Work Phone: COMPLETE UA SeeNote Normal [facility] Work Phone: Comment on above: Result: NEGATIVE Result: 0-5 SEEN COMPLETE UA 5.5 1 Normal 5.0-8.0 [facility] Work Phone: COMPLETE UA CLEAR Normal [facility] Work Phone: COMPLETE UA YELLOW Normal [facility] Work Phone: COMPLETE UA 0.2 EU/dl Normal 0.2 - 1.0 [facility] Work Phone: COMPLETE UA >=1.030 Normal 1.002-1.03 0 [facility] Work Phone: Blood Glucose , Office ([phone])Ordered By: Ines Reynoso on 02-12-2007 Glucose Glucometer molar conc (BldC) 86 1 Normal [facility] Work Phone: HgA1C , Office ([phone])Ordere d By: Ines Reynoso on 02-12-2007 Hemoglobin A1c/Hemoglobin.total mass fraction (Bld) 5.2 % Normal 4.6 - 7.1 Comprehensiv e [facility] Work Phone: MAMM, BILAT SCRN DIGITAL & C ADOrdered By: [employer] on 01-18-2007 MAMM, BILAT SCRN DIGITAL & CAD See Note Normal [facility] Work Phone: Comment on above: Exam Number: [id number] MAMMOGRAM, BILATERAL SCREENING DIGITAL AND CAD HISTORYRoutine bilateral screening. Full field digital images were obtained in mediolateral oblique andcraniocaudal projections. CAD images were reviewed. The current study is compared to the examinations of 08/2000 and02/2002. There is moderately dense fibroglandular parenchyma present. There isno skin thickening or retraction, architectural distortion, or clusterof suspicious microcalcifications. No dominant mass or significantinterval change seen. If there is no suspicious palpable abnormality,followup mammogram in one year is recommended. IMPRESSION1. There is no radiographic evidence of malignancy identified. FINAL ASSESSMENT: Benign findings.1. BIRADS Category 2. A letter regarding these results has been sent to the patient. This interpretation was rendered by a radiologist certified under theMammography Quality Standards Act of 1992 (MQSA). The mammograms werealso examined with computer-aided detection software ([employer], [employer] Reported By: DREW CHAPA M.D. B12/FOLATES 810Ordered By: Cole [facility] Bronze Plater on 01-12-2007 B12/FOLATES 810 465 pg/mL Normal 211-911 [facility] Internal Medicine Work Phone: B12/FOLATES 810 12.4 ng/mL Normal [facility] Internal Medicine Work Phone: Comment on above: Indeterminate: 3.4 - 5.4 Deficient: <3.4Performed At: [address] [id number] CBCD,SMEAR DIFFOrdered By: Cole EDITION F Gmb[facility] Bronze [employer]ater on 01-12-2007 Erythrocyte distribution width Auto Ratio (RBC) 15.3 % Abnormal 11.6-14.6 [facility] Work Phone: Hematocrit Auto Volume Fraction (Bld) 34.8 % Abnormal 37-47 [facility] Internal Medicine Work Phone: Hemoglobin mass conc (Bld) 11.6 g/dL Abnormal 12.0-16.0 [facility] Work Phone: MCH Auto Entitic mass (RBC) 28.1 pg Normal 27.0-32.0 [facility] Work Phone: MCHC Auto mass conc (RBC) 33.4 g/dL Normal 32-36 [facility] Work Phone: MCV Auto Entitic volume (RBC) 84.0 fL Normal 81-99 [facility] Work Phone: Platelets Auto #/vol (Bld) 270 10*3/uL Normal 150-450 [facility] Work Phone: RBC Auto #/vol (Bld) 4.15 {M/mm3} Abnormal 4.2-5.4 Co mprehensive [facility] Work Phone: WBC Auto #/vol (Bld) 7.7 10*3/uL Normal 4.4-11.0 [facility] Work Phone: CBCD,SMEAR DIFF 25 % Normal 19-41 [facility] Work Phone: CBCD,SMEAR DIFF 4 % Normal 0-10 [facility] Work Phone: CBCD,SMEAR DIFF 70 % Normal 47-70 [facility] Work Phone: CBCD,SMEAR DIFF 1 % Normal 0-5 [facility] Work Phone: CBCD,SMEAR DIFF 100 1 Normal [facility] Internal Medicine Work Phone: COMP METABOLICOrdered By: Edvin stem Bronze Plater on 01-12-2007 Albumin mass conc 3.5 g/dL Normal 3.4-5.0 Compreh [facility] Internal [facility] Work Phone: Albumin/Globulin mass ratio 0.9 {RATIO} Normal 0.9-2.4 [facility] Work Phone: ALP enzyme act/vol 75 U/L Normal 50-136 [facility] Internal Medicine Work Phone: ALT enzyme act/vol 30 [iU]/L Normal 30-65 [facility] Internal [facility] Work Phone: Anion gap 3 molar conc 9 mmol/L Normal 5-15 [facility] Work Phone: AST enzyme act/vol 17 U/L Normal 15-37 [facility] Internal Medicine Work Phone: Bilirubin mass conc 0.99 mg/dL Normal 0.00-1.00 [facility] Internal Medicine Work Phone: Calcium mass conc 8.8 mg/dL Normal 8.5-10.1 [facility] Internal Medicine Work Phone: Chloride molar conc 103 mmol/L Normal 98-107 Compr [facility] Internal Medicine Work Phone: CO2 molar conc 25.3 mmol/L Normal 22.0-29.0 Comprehen sive Internal Medicine Work Phone: Creatinine mass conc 1.2 mg/dL Abnormal 0.6-1.0 Comp rehensive [facility] Medicine Work Phone: Globulin Calculated mass conc (S) 4.0 g/dL Abnormal 2.3-3.5 [facility] Work Phone: Glucose mass conc 95 mg/dL Normal 70-110 Compreh ensive [facility] Work Phone: Potassium molar conc 3.8 mmol/L Normal 3.5-5.1 Comp rehensive [facility] Medicine Work Phone: Protein mass conc 7.5 g/dL Normal 6.4-8.2 Compreh ensive [facility] Work Phone: Sodium molar conc 137 mmol/L Normal 136-145 Compreh ensive [facility] Work Phone: Urea nitrogen mass conc 10 mg/dL Normal 7-18 [facility] Work Phone: Urea nitrogen/Creatinine mass ratio 8.3 {RATIO} Abnormal 10-20 [facility] Work Phone: COMPLETE UAOrdered By: [employer] Bronze Plater on 01-12-2007 COMPLETE UA SeeNote Normal 0-5 [facility] Work Phone: Comment on above: Result: NEGATIVE Result: ADEQUATE Result: NORM C&C Result: TRACE-LYSED Result: 0-5 SEEN COMPLETE UA 1+ Normal [facility] Work Phone: COMPLETE UA CLEAR Normal [facility] Work Phone: COMPLETE UA YELLOW Normal [facility] Work Phone: COMPLETE UA 2+ Normal [facility] Work Phone: COMPLETE UA 5.5 1 Normal 5.0-8.0 [facility] Work Phone: COMPLETE UA TRACE Normal [facility] Work Phone: COMPLETE UA >=1.030 Normal 1.002-1.03 0 [facility] Work Phone: COMPLETE UA 0.2 EU/dl Normal 0.2 - 1.0 [facility] Work Phone: GLUPOrdered By: System Manag er on 01-12-2007 GLUP 151 mg/dL Abnormal [facility] Work Phone: Comment on above: Glucose result from 140 to <200 mg/dL suggestsIMPAIRED GLUCOSE HOMEOSTASIS per A.D.A. criteria. LIPIDOrdered By: System Chely molina on 01-12-2007 Cholesterol in HDL mass conc 52 mg/dL Normal [facility] Work Phone: Comment on above: Reference Range HDL <40 mg/dL Low HDL Cholesterol HDL >or= 60 mg/dL High HDL Cholesterol Cholesterol in LDL mass conc 108 mg/dL Normal 0-130 [facility] Work Phone: Cholesterol in VLDL mass conc 14 mg/dL Normal 5-40 [facility] Work Phone: Cholesterol mass conc 174 mg/dL Normal Com prehensive [facility] Work Phone: Comment on above: <200 mg/dL Desirable 200-240 mg/dL Borderline >240 mg/dL High Risk Triglyceride mass conc 68 mg/dL Normal [facility] Work Phone: Comment on above: Serum Triglycerides Reference Interval Normal <150 mg/dL Borderline high 150 - 199 mg/dL High 200 - 499 mg/dL Very High > or = 500 mg/dL MICROALBOrdered By: System YellowScheduleger on 01-12-2007 MICROALB 14.0 {mg/g_CRE} Normal [facility] Internal [facility] Work Phone: MICROALB 49.5 mg/L Normal [facility] Work Phone: MICROALB 353.0 mg/dL Normal [facility] Work Phone: PRO TIMEOrdered By: System YellowScheduleger on 01-12-2007 PRO TIME 13.3 s Normal 11.7-13.3 [facility] Work Phone: PRO TIME 1.1 1 Normal [facility] Work Phone: PTTOrdered By: System [employer] r on 01-12-2007 PTT 27.2 s Normal 24.6-36.6 [facility] Work Phone: TSHOrdered By: System Manage r on 01-12-2007 Thyrotropin Qn 3.34 {uIU/mL} Normal 0.34-4.82 Compreh ensive [facility] Work Phone: Vital Signs Date Time Vital Sign Value Performing Clinician Facility 06-05-2025 13:57-0400 Body height 154.9 cm Ernestina Grimaldo MD Work Phone: [facility] 06-05-2025 13:57-0400 Body mass index (BMI) [Ratio] 31.63 kg/m2 Ernestina Grimaldo MD Work Phone: [facility] 06-05-2025 13:57-0400 Body weight 75.93 kg Ernestina Grimaldo MD Work Phone: [facility] 06-05-2025 13:57-0400 Diastolic blood pressure 60 mm[Hg] Ernestina Grimaldo MD Work Phone: [facility] 06-05-2025 13:57-0400 Heart rate 61 /min Ernestina Grimaldo MD Work Phone: [facility] 06-05-2025 13:57-0400 Systolic blood pressure 110 mm[Hg] Ernestina Grimaldo MD Work Phone: [facility] 03-24-2025 16:58-0400 Body mass index (BMI) [Ratio] 31.74 kg/m2 Jose Bullard MD Work Phone: [facility] 03-24-2025 16:58-0400 Body weight 76.2 kg Jose Bullard MD Work Phone: [facility] 03-24-2025 16:58-0400 Diastolic blood pressure 82 mm[Hg] Jose Bullard MD Work Phone: [facility] 03-24-2025 16:58-0400 Heart rate 62 /min Jose Bullard MD Work Phone: [facility] 03-24-2025 16:58-0400 SaO2% (BldA) [Mass fraction] 97 % Jose Bullard MD Work Phone: [facility] 03-24-2025 16:58-0400 Systolic blood pressure 134 mm[Hg] Jose Bullard MD Work Phone: [facility] 01-03-2025 14:30-0400 Body mass index (BMI) [Ratio] 31.55 kg/m2 Jose Bullard MD Work Phone: [facility] 01-03-2025 14:30-0400 Body temperature 98.2 [degF] Jose Bullard MD Work Phone: [facility] 01-03-2025 14:30-0400 Body weight 75.75 kg Jose Bulalrd MD Work Phone: [facility] 01-03-2025 14:30-0400 Diastolic blood pressure 78 mm[Hg] Jose Bullard MD Work Phone: [facility] 01-03-2025 14:30-0400 Heart rate 54 /min Jose Bullard MD Work Phone: [facility] 01-03-2025 14:30-0400 SaO2% (BldA) [Mass fraction] 98 % Jose Bullard MD Work Phone: [facility] 01-03-2025 14:30-0400 Systolic blood pressure 122 mm[Hg] Jose Bullard MD Work Phone: [facility] 12-31-2024 21:45-0400 Heart rate 49 /min Dr. Jose Bullard MD Work Phone: [facility] 12-31-2024 21:45-0400 Respiratory rate 19 /min Dr. Jose Bullard MD Work Phone: [facility] 12-31-2024 21:45-0400 SaO2% (BldA) [Mass fraction] 99 % Dr. Jose Bullard MD Work Phone: [facility] 12-31-2024 20:45-0400 Diastolic blood pressure 61 mm[Hg] Dr. Jose Bullard MD Work Phone: [facility] 12-31-2024 20:45-0400 Systolic blood pressure 101 mm[Hg] Dr. Jose Bullard MD Work Phone: [facility] 12-31-2024 20:00-0400 Body temperature 98.1 [degF] Dr. Jose Bullard MD Work Phone: [facility] 12-31-2024 15:31-0400 Body height 154.[address] Jose Bullard MD Work Phone: [phone] [place] [address] 12-31-2024 15:31-0400 Body mass index (BMI) [Ratio] 32.3 kg/m2 Dr. Jose Bullard MD Work Phone: 6(086)[phone] [place] [address] 12-31-2024 15:31-0400 Body weight 77.[address] Jose Bullard MD Work Phone: 6(153)[phone] [place] [address] 12-31-2024 15:01-0400 Body temperature 99.5 [degF] Leila Suppan DYEHOUSE WORKER.[employer] MEDICAL SERGEANT Work Phone: [facility] 12-31-2024 15:01-0400 Diastolic blood pressure 80 mm[Hg] Leila Suppan DYEHOUSE WORKER.[employer] MEDICAL SERGEANT Work Phone: [facility] 12-31-2024 15:01-0400 Heart rate 76 /min Leila Suppan DYEHOUSE WORKER.[employer] MEDICAL SERGEANT Work Phone: [facility] 12-31-2024 15:01-0400 Systolic blood pressure 120 mm[Hg] Leila Suppan DYEHOUSE WORKER.[employer] MEDICAL SERGEANT Work Phone: [facility] 12-30-2024 19:44-0400 Body temperature 98.2 [degF] Dr. Jose Bullard MD Work Phone: [facility] 12-30-2024 19:44-0400 Diastolic blood pressure 82 mm[Hg] Dr. Jose Bullard MD Work Phone: [phone] [place] [address] 12-30-2024 19:44-0400 Heart rate 71 /min Dr. Jose Bullard MD Work Phone: [phone] [place] [address] 12-30-2024 19:44-0400 Respiratory rate 18 /min Dr. Jose Bullard MD Work Phone: [facility] 12-30-2024 19:44-0400 SaO2% (BldA) [Mass fraction] 99 % Dr. Jose Bullard MD Work Phone: [facility] 12-30-2024 19:44-0400 Systolic blood pressure 150 mm[Hg] Dr. Jose Bullard MD Work Phone: [facility] 12-30-2024 16:56-0400 Body height 154.[address] Jose Bullard MD Work Phone: [facility] 09-23-2024 16:46-0500 Body height 154.9 cm Jose Bullard MD Work Phone: [facility] 09-23-2024 16:46-0500 Body mass index (BMI) [Ratio] 32.99 kg/m2 Jose Bullard MD Work Phone: [facility] 09-23-2024 16:46-0500 Body weight 79.2 kg Jose Bullard MD Work Phone: [facility] 09-23-2024 16:46-0500 Diastolic blood pressure 76 mm[Hg] Jose Bullard MD Work Phone: [facility] 09-23-2024 16:46-0500 Heart rate 60 /min Jose Bullard MD Work Phone: [facility] 09-23-2024 16:46-0500 SaO2% (BldA) [Mass fraction] 98 % Jose Bullard MD Work Phone: [facility] 09-23-2024 16:46-0500 Systolic blood pressure 126 mm[Hg] Jose Bullard MD Work Phone: [facility] 08-07-2024 10:42-0400 Diastolic blood pressure 82 mm[Hg] Sussy Reid MD Work Phone: [facility] 08-07-2024 10:42-0400 Respiratory rate 16 /min Sussy Reid MD Work Phone: [facility] 08-07-2024 10:42-0400 SaO2% (BldA) [Mass fraction] 99 % Sussy Reid MD Work Phone: [facility] 08-07-2024 10:42-0400 Systolic blood pressure 168 mm[Hg] Sussy Reid MD Work Phone: [facility] 08-07-2024 10:15-0400 Heart rate 52 /min Sussy Reid MD Work Phone: [facility] 08-07-2024 09:55-0400 Body temperature 97.3 [degF] Sussy Reid MD Work Phone: [facility] 08-07-2024 09:18-0400 Body height 154.9 cm Sussy Reid MD Work Phone: [facility] 08-07-2024 09:18-0400 Body mass index (BMI) [Ratio] 31.74 kg/m2 Sussy Reid MD Work Phone: [facility] 08-07-2024 09:18-0400 Body weight 76.2 kg Sussy Reid MD Work Phone: [facility] 06-26-2024 15:48-0400 Body height 154.9 cm Kip Finelli DO Work Phone: [facility] 06-26-2024 15:48-0400 Body mass index (BMI) [Ratio] 31.82 kg/m2 Kip Finelli DO Work Phone: [facility] 06-26-2024 15:48-0400 Body temperature 97.7 [degF] Kip Finelli DO Work Phone: [facility] 06-26-2024 15:48-0400 Body weight 76.39 kg Kip Finelli DO Work Phone: [facility] 06-26-2024 15:48-0400 Diastolic blood pressure 72 mm[Hg] Kip Finelli DO Work Phone: [facility] 06-26-2024 15:48-0400 Heart rate 76 /min Kip Finelli DO Work Phone: [facility] 06-26-2024 15:48-0400 SaO2% (BldA) [Mass fraction] 97 % Kip Finelli DO Work Phone: [facility] 06-26-2024 15:48-0400 Systolic blood pressure 118 mm[Hg] Kip Finelli DO Work Phone: [facility] 06-05-2024 12:56-0400 Diastolic blood pressure 62 mm[Hg] Melany Haagen DYEHOUSE WORKER.[employer] MEDICAL SERGEANT Work Phone: [facility] 06-05-2024 12:56-0400 Heart rate 48 /min Melany Haagen DYEHOUSE WORKER.[employer] MEDICAL SERGEANT Work Phone: [facility] 06-05-2024 12:56-0400 Respiratory rate 16 /min Melany Haagen DYEHOUSE WORKER.[employer] MEDICAL SERGEANT Work Phone: [facility] 06-05-2024 12:56-0400 SaO2% (BldA) [Mass fraction] 98 % Melany Haagen DYEHOUSE WORKER.[employer] MEDICAL SERGEANT Work Phone: [facility] 06-05-2024 12:56-0400 Systolic blood pressure 104 mm[Hg] Melany Haagen DYEHOUSE WORKER.[employer] MEDICAL SERGEANT Work Phone: [facility] 03-22-2024 08:08-0400 Body mass index (BMI) [Ratio] 32.31 kg/m2 Jose Bullard MD Work Phone: [facility] 03-22-2024 08:08-0400 Body weight 77.56 kg Jose Bullard MD Work Phone: [facility] 03-22-2024 08:08-0400 Diastolic blood pressure 82 mm[Hg] Jose Bullard MD Work Phone: [facility] 03-22-2024 08:08-0400 Heart rate 64 /min Jose Bullard MD Work Phone: [facility] 03-22-2024 08:08-0400 SaO2% (BldA) [Mass fraction] 97 % Jose Bullard MD Work Phone: [facility] 03-22-2024 08:08-0400 Systolic blood pressure 132 mm[Hg] Jose Bullard MD Work Phone: [facility] 09-05-2023 16:29-0500 Body temperature 97.59 [degF] Sayda Reece APRN.[employer] MEDICAL SERGEANT Work Phone: [facility] 09-05-2023 16:29-0500 Body weight 75.75 kg Sayda Reece APRN.[employer] SERGEANT Work Phone: [facility] 09-05-2023 16:29-0500 Diastolic blood pressure 64 mm[Hg] Sayda Reece APRN.[employer] SERGEANT Work Phone: [facility] 09-05-2023 16:29-0500 Heart rate 60 /min Sayda Reece APRN.[employer] MED[employer] SERGEANT Work Phone: [facility] 09-05-2023 16:29-0500 Respiratory rate 16 /min Sayda Reece APRN.[employer] SERGEANT Work Phone: [facility] 09-05-2023 16:29-0500 SaO2% (BldA) [Mass fraction] 100 % Sayda Reece APRN.[employer] MED[employer] SERGEANT Work Phone: [facility] 09-05-2023 16:29-0500 Systolic blood pressure 122 mm[Hg] Sayda Reece APRN.[employer] MED[employer] SERGEANT Work Phone: [facility] 11-22-2022 16:08-0500 Body height 154.9 cm Sussy Reid MD Work Phone: [facility] 11-22-2022 16:08-0500 Body temperature 98.1 [degF] Sussy Reid MD Work Phone: [facility] 11-22-2022 16:08-0500 Body weight 83.55 kg Sussy Reid MD Work Phone: [facility] 11-22-2022 16:08-0500 Diastolic blood pressure 80 mm[Hg] Sussy Reid MD Work Phone: [facility] 11-22-2022 16:08-0500 Heart rate 76 /min Sussy Reid MD Work Phone: [facility] 11-22-2022 16:08-0500 SaO2% (BldA) [Mass fraction] 98 % Ssusy Reid MD Work Phone: [facility] 11-22-2022 16:08-0500 Systolic blood pressure 132 mm[Hg] Sussy Reid MD Work Phone: [facility] 11-15-2022 16:17-0500 Diastolic blood pressure 82 mm[Hg] Jose Bullard MD Work Phone: [facility] 11-15-2022 16:17-0500 Systolic blood pressure 126 mm[Hg] Jose Bullard MD Work Phone: [facility] 11-15-2022 16:01-0500 Body height 154.9 cm Jose Bullard MD Work Phone: [facility] 11-15-2022 16:01-0500 Body weight 81.19 kg Jose Bullard MD Work Phone: [facility] 11-15-2022 16:01-0500 Heart rate 73 /min Jose Bullard MD Work Phone: [facility] 11-15-2022 16:01-0500 SaO2% (BldA) [Mass fraction] 98 % Jose Bullard MD Work Phone: [facility] 05-13-2022 15:48-0400 Body weight 78.02 kg Jose Bullard MD Work Phone: [facility] 05-13-2022 15:48-0400 Diastolic blood pressure 82 mm[Hg] Jose Bullard MD Work Phone: [facility] 05-13-2022 15:48-0400 Heart rate 80 /min Jose Bullard MD Work Phone: [facility] 05-13-2022 15:48-0400 Systolic blood pressure 122 mm[Hg] Jose Bullard MD Work Phone: [facility] 05-06-2022 15:42-0400 Body height 154.9 cm Sussy Reid MD Work Phone: [facility] 05-06-2022 15:42-0400 Body temperature 98.4 [degF] Sussy Reid MD Work Phone: [facility] 05-06-2022 15:42-0400 Body weight 79.38 kg Sussy Reid MD Work Phone: [facility] 05-06-2022 15:42-0400 Diastolic blood pressure 58 mm[Hg] Sussy Reid MD Work Phone: [facility] 05-06-2022 15:42-0400 Heart rate 78 /min Sussy Reid MD Work Phone: [facility] 05-06-2022 15:42-0400 SaO2% (BldA) [Mass fraction] 99 % Sussy Reid MD Work Phone: [facility] 05-06-2022 15:42-0400 Systolic blood pressure 108 mm[Hg] Sussy Reid MD Work Phone: [facility] 04-29-2022 11:23-0400 Body temperature 98.4 [degF] Jose Bullard MD Work Phone: [facility] 04-29-2022 11:23-0400 Body weight 80.74 kg Jose Bullard MD Work Phone: [facility] 04-29-2022 11:23-0400 Diastolic blood pressure 88 mm[Hg] Jose Bullard MD Work Phone: [facility] 04-29-2022 11:23-0400 Heart rate 60 /min Jose Bullard MD Work Phone: [facility] 04-29-2022 11:23-0400 Respiratory rate 16 /min Jose Bullard MD Work Phone: [facility] 04-29-2022 11:23-0400 Systolic blood pressure 133 mm[Hg] Jose Bullard MD Work Phone: [facility] 09-08-2017 08:10-0500 BMI (Body Mass Index) 31.04 kg/m2 [facility] Work Phone: 09-08-2017 08:10-0500 Body Temperature 97.3 [degF] [facility] Work Phone: Comment on above: Method: Temporal 09-08-2017 08:10-0500 BP Diastolic 68 mm[Hg] [facility] Work Phone: Comment on above: Patient Position: Sitting; Cuff Location : Left Arm; Cuff Size: Standard 09-08-2017 08:10-0500 BP Systolic 108 mm[Hg] [facility] Work Phone: Comment on above: Patient Position: Sitting; Cuff Location : Left Arm; Cuff Size: Standard 09-08-2017 08:10-0500 BSA (Body Surface Area) 1.76 m2 [facility] Work Phone: 09-08-2017 08:10-0500 Height 156.21 cm [facility] Work Phone: 09-08-2017 08:10-0500 Pulse (Heart Rate) 66 /min [facility] Work Phone: Comment on above: Pattern: Regular 09-08-2017 08:10-0500 Pulse Oximetry 97 % [facility] Work Phone: Comment on above: Room air 09-08-2017 08:10-0500 Respiratory Rate 17 /min [facility] Work Phone: Comment on above: Pattern: Unlabored 09-08-2017 08:10-0500 Weight 75.75 kg [facility] Work Phone: 05-22-2017 17:45-0400 BMI (Body Mass Index) 31.04 kg/m2 [facility] Work Phone: 05-22-2017 17:45-0400 Body Temperature 97.2 [degF] [facility] Work Phone: Comment on above: Method: Temporal 05-22-2017 17:45-0400 BP Diastolic 76 mm[Hg] [facility] Work Phone: Comment on above: Patient Position: Sitting; Cuff Location : Left Arm; Cuff Size: Standard 05-22-2017 17:45-0400 BP Systolic 108 mm[Hg] [facility] Work Phone: Comment on above: Patient Position: Sitting; Cuff Location : Left Arm; Cuff Size: Standard 05-22-2017 17:45-0400 BSA (Body Surface Area) 1.76 m2 [facility] Work Phone: 05-22-2017 17:45-0400 Height 156.21 cm [facility] Work Phone: 05-22-2017 17:45-0400 Pulse (Heart Rate) 76 /min [facility] Work Phone: Comment on above: Pattern: Regular 05-22-2017 17:45-0400 Pulse Oximetry 97 % [facility] Work Phone: Comment on above: Room air 05-22-2017 17:45-0400 Respiratory Rate 16 /min [facility] Work Phone: Comment on above: Pattern: Unlabored 05-22-2017 17:45-0400 Weight 75.75 kg [facility] Work Phone: 10-28-2016 09:47-0500 BMI (Body Mass Index) 35.5 kg/m2 [facility] Work Phone: 10-28-2016 09:47-0500 Body Temperature 96.8 [degF] [facility] Work Phone: Comment on above: Method: Temporal 10-28-2016 09:47-0500 BP Diastolic 68 mm[Hg] [facility] Work Phone: Comment on above: Patient Position: Sitting; Cuff Location : Left Arm; Cuff Size: Standard 10-28-2016 09:47-0500 BP Systolic 100 mm[Hg] [facility] Work Phone: Comment on above: Patient Position: Sitting; Cuff Location : Left Arm; Cuff Size: Standard 10-28-2016 09:47-0500 BSA (Body Surface Area) 1.86 m2 [facility] Work Phone: 10-28-2016 09:47-0500 Height 156.21 cm [facility] Work Phone: 10-28-2016 09:47-0500 Pulse (Heart Rate) 59 /min [facility] Work Phone: Comment on above: Pattern: Regular 10-28-2016 09:47-0500 Respiratory Rate 16 /min [facility] Work Phone: Comment on above: Pattern: Unlabored 10-28-2016 09:47-0500 Weight 86.64 kg [facility] Work Phone: 09-02-2016 07:15-0500 BMI (Body Mass Index) 35.5 kg/m2 [facility] Work Phone: 09-02-2016 07:15-0500 Body Temperature 96.7 [degF] [facility] Work Phone: Comment on above: Method: Temporal 09-02-2016 07:15-0500 BP Diastolic 70 mm[Hg] [facility] Work Phone: Comment on above: Patient Position: Sitting; Cuff Location : Left Arm; Cuff Size: Large 09-02-2016 07:15-0500 BP Systolic 108 mm[Hg] [facility] Work Phone: Comment on above: Patient Position: Sitting; Cuff Location : Left Arm; Cuff Size: Large 09-02-2016 07:15-0500 BSA (Body Surface Area) 1.86 m2 [facility] Work Phone: 09-02-2016 07:15-0500 Height 156.21 cm [facility] Work Phone: 09-02-2016 07:15-0500 Pulse (Heart Rate) 56 /min [facility] Work Phone: Comment on above: Pattern: Regular 09-02-2016 07:15-0500 Pulse Oximetry 97 % [facility] Work Phone: Comment on above: Room air 09-02-2016 07:15-0500 Respiratory Rate 15 /min [facility] Work Phone: Comment on above: Pattern: Unlabored 09-02-2016 07:15-0500 Weight 86.64 kg [facility] Work Phone: 06-10-2016 13:02-0400 BMI (Body Mass Index) 35.88 kg/m2 [facility] Work Phone: 06-10-2016 13:02-0400 Body Temperature 96.8 [degF] [facility] Work Phone: Comment on above: Method: Temporal 06-10-2016 13:02-0400 BP Diastolic 60 mm[Hg] [facility] Work Phone: Comment on above: Patient Position: Sitting; Cuff Location : Left Arm; Cuff Size: Large 06-10-2016 13:02-0400 BP Systolic 100 mm[Hg] [facility] Work Phone: Comment on above: Patient Position: Sitting; Cuff Location : Left Arm; Cuff Size: Large 06-10-2016 13:02-0400 BSA (Body Surface Area) 1.87 m2 [facility] Work Phone: 06-10-2016 13:02-0400 Height 156.21 cm [facility] Work Phone: 06-10-2016 13:02-0400 Pulse (Heart Rate) 66 /min [facility] Work Phone: Comment on above: Pattern: Regular 06-10-2016 13:02-0400 Pulse Oximetry 97 % [facility] Work Phone: Comment on above: Room air 06-10-2016 13:02-0400 Respiratory Rate 18 /min [facility] Work Phone: Comment on above: Pattern: Unlabored 06-10-2016 13:02-0400 Weight 87.54 kg [facility] Work Phone: 01-20-2016 15:09-0400 BMI (Body Mass Index) 35.5 kg/m2 [facility] Work Phone: 01-20-2016 15:090400 Body Temperature 97.4 [degF] [facility] Work Phone: Comment on above: Method: Temporal 01-20-2016 15:090400 BP Diastolic 80 mm[Hg] [facility] Work Phone: Comment on above: Patient Position: Sitting; Cuff Location : Left Arm; Cuff Size: Large 01-20-2016 15:0400 BP Systolic 104 mm[Hg] [facility] Work Phone: Comment on above: Patient Position: Sitting; Cuff Location : Left Arm; Cuff Size: Large 01-20-2016 15:040 BSA (Body Surface Area) 1.86 m2 [facility] Work Phone: 01-20-2016 15:040 Height 156.21 cm [facility] Work Phone: 01-20-2016 15:09-0400 Pulse (Heart Rate) 62 /min [facility] Work Phone: Comment on above: Pattern: Regular 01-20-2016 15:0400 Pulse Oximetry 98 % [facility] Work Phone: Comment on above: Room air 01-20-2016 15:09-0400 Respiratory Rate 15 /min [facility] Work Phone: Comment on above: Pattern: Unlabored 01-20-2016 15:09-0400 Weight 86.64 kg [facility] Work Phone: 09-09-2015 15:56-0500 BMI (Body Mass Index) 33.09 kg/m2 [facility] Work Phone: 09-09-2015 15:56-0500 Body Temperature 98 [degF] [facility] Work Phone: Comment on above: Method: Temporal 09-09-2015 15:56-0500 BP Diastolic 70 mm[Hg] [facility] Work Phone: Comment on above: Patient Position: Sitting; Cuff Location : Left Arm; Cuff Size: Large 09-09-2015 15:56-0500 BP Systolic 100 mm[Hg] [facility] Work Phone: Comment on above: Patient Position: Sitting; Cuff Location : Left Arm; Cuff Size: Large 09-09-2015 15:56-0500 BSA (Body Surface Area) 1.81 m2 [facility] Work Phone: 09-09-2015 15:56-0500 Height 156.21 cm [facility] Work Phone: 09-09-2015 15:56-0500 Pulse (Heart Rate) 76 /min [facility] Work Phone: Comment on above: Pattern: Regular 09-09-2015 15:56-0500 Respiratory Rate 15 /min [facility] Work Phone: Comment on above: Pattern: Unlabored 09-09-2015 15:56-0500 Weight 80.74 kg [facility] Work Phone: 05-11-2015 15:46-0400 BMI (Body Mass Index) 32.9 kg/m2 [facility] Work Phone: 05-11-2015 15:46-0400 Body Temperature 97.9 [degF] [facility] Work Phone: Comment on above: Method: Oral 05-11-2015 15:46-0400 BP Diastolic 60 mm[Hg] [facility] Work Phone: Comment on above: Patient Position: Sitting; Cuff Location : Left Arm; Cuff Size: Large 05-11-2015 15:46-0400 BP Systolic 104 mm[Hg] [facility] Work Phone: Comment on above: Patient Position: Sitting; Cuff Location : Left Arm; Cuff Size: Large 05-11-2015 15:46-0400 BSA (Body Surface Area) 1.8 m2 [facility] Work Phone: 05-11-2015 15:46-0400 Height 156.21 cm [facility] Work Phone: 05-11-2015 15:46-0400 Pulse (Heart Rate) 65 /min [facility] Work Phone: Comment on above: Pattern: Regular 05-11-2015 15:46-0400 Respiratory Rate 16 /min [facility] Work Phone: Comment on above: Pattern: Unlabored 05-11-2015 15:46-0400 Weight 80.29 kg [facility] Work Phone: 12-29-2014 15:28-0400 BMI (Body Mass Index) 36.06 kg/m2 [facility] Work Phone: 12-29-2014 15:28-0400 Body Temperature 98.1 [degF] [facility] Work Phone: 12-29-2014 15:28-0400 BP Diastolic 80 mm[Hg] [facility] Work Phone: Comment on above: Patient Position: Sitting; Cuff Location : Left Arm; Cuff Size: Large 12-29-2014 15:28-0400 BP Systolic 110 mm[Hg] [facility] Work Phone: Comment on above: Patient Position: Sitting; Cuff Location : Left Arm; Cuff Size: Large 12-29-2014 15:28-0400 BSA (Body Surface Area) 1.88 m2 [facility] Work Phone: 12-29-2014 15:28-0400 Height 156.21 cm [facility] Work Phone: 12-29-2014 15:28-0400 Pulse (Heart Rate) 72 /min [facility] Work Phone: Comment on above: Pattern: Regular 12-29-2014 15:28-0400 Respiratory Rate 16 /min [facility] Work Phone: Comment on above: Pattern: Unlabored 12-29-2014 15:28-0400 Weight 88 kg [facility] Work Phone: 11-26-2014 11:14-0500 BMI (Body Mass Index) 35.88 kg/m2 [facility] Work Phone: 11-26-2014 11:14-0500 Body Temperature 98.1 [degF] [facility] Work Phone: 11-26-2014 11:14-0500 BP Diastolic 64 mm[Hg] [facility] Work Phone: Comment on above: Patient Position: Sitting; Cuff Location : Left Arm; Cuff Size: Large 11-26-2014 11:14-0500 BP Systolic 108 mm[Hg] [facility] Work Phone: Comment on above: Patient Position: Sitting; Cuff Location : Left Arm; Cuff Size: Large 11-26-2014 11:14-0500 BSA (Body Surface Area) 1.87 m2 [facility] Work Phone: 11-26-2014 11:14-0500 Height 156.21 cm [facility] Work Phone: 11-26-2014 11:14-0500 Pulse (Heart Rate) 64 /min [facility] Work Phone: Comment on above: Pattern: Regular 11-26-2014 11:14-0500 Respiratory Rate 16 /min [facility] Work Phone: Comment on above: Pattern: Unlabored 11-26-2014 11:14-0500 Weight 87.54 kg [facility] Work Phone: 06-11-2014 15:43-0400 BMI (Body Mass Index) 36.62 kg/m2 [facility] Work Phone: 06-11-2014 15:43-0400 Body Temperature 98.9 [degF] [facility] Work Phone: Comment on above: Method: Oral 06-11-2014 15:43-0400 BP Diastolic 70 mm[Hg] [facility] Work Phone: Comment on above: Patient Position: Sitting; Cuff Location : Left Arm; Cuff Size: Standard 06-11-2014 15:43-0400 BP Systolic 115 mm[Hg] [facility] Work Phone: Comment on above: Patient Position: Sitting; Cuff Location : Left Arm; Cuff Size: Standard 06-11-2014 15:43-0400 BSA (Body Surface Area) 1.89 m2 [facility] Work Phone: 06-11-2014 15:43-0400 Height 156.21 cm [facility] Work Phone: 06-11-2014 15:43-0400 Pulse (Heart Rate) 68 /min [facility] Work Phone: Comment on above: Pattern: Regular 06-11-2014 15:43-0400 Respiratory Rate 16 /min [facility] Work Phone: Comment on above: Pattern: Unlabored 06-11-2014 15:43-0400 Weight 89.36 kg [facility] Work Phone: 02-12-2014 10:16-0400 BMI (Body Mass Index) 36.99 kg/m2 [facility] Work Phone: 02-12-2014 10:16-0400 Body Temperature 97.7 [degF] [facility] Work Phone: 02-12-2014 10:16-0400 BP Diastolic 80 mm[Hg] [facility] Work Phone: Comment on above: Patient Position: Sitting; Cuff Location : Left Arm; Cuff Size: Large 02-12-2014 10:16-0400 BP Systolic 100 mm[Hg[facility]: Comment on above: Patient Position: Sitting; Cuff Location : Left Arm; Cuff Size: Large 02-12-2014 10:16-0400 BSA (Body Surface Area) 1.9 m2 [facility] Work Phone: 02-12-2014 10:16-0400 Height 156.21 cm [facility] Work Phone: 02-12-2014 10:16-0400 Pulse (Heart Rate) 58 /min [facility] Work Phone: Comment on above: Pattern: Regular 02-12-2014 10:16-0400 Respiratory Rate 16 /min [facility] Work Phone: Comment on above: Pattern: Unlabored 02-12-2014 10:16-0400 Weight 90.27 kg [facility] Work Phone: 12-31-2013 13:48-0400 BP Diastolic 90 mm[Hg] [facility] Work Phone: Comment on above: Patient Position: Sitting 12-31-2013 13:48-0400 BP Systolic 130 mm[Hg] [facility] Work Phone: Comment on above: Patient Position: Sitting 12-31-2013 13:14-0400 BMI (Body Mass Index) 37.92 kg/m2 [facility] Work Phone: 12-31-2013 13:14-0400 Body Temperature 97.8 [degF] [facility] Work Phone: 12-31-2013 13:14-0400 BP Diastolic 110 mm[Hg] [facility] Work Phone: Comment on above: Patient Position: Sitting; Cuff Location : Left Arm; Cuff Size: Large 12-31-2013 13:14-0400 BP Systolic 160 mm[Hg] [facility] Work Phone: Comment on above: Patient Position: Sitting; Cuff Location : Left Arm; Cuff Size: Large 12-31-2013 13:14-0400 BSA (Body Surface Area) 1.92 m2 [facility] Work Phone: 12-31-2013 13:14-0400 Height 156.21 cm [facility] Work Phone: 12-31-2013 13:14-0400 Pulse (Heart Rate) 56 /min [facility] Work Phone: Comment on above: Pattern: Regular 12-31-2013 13:14-0400 Respiratory Rate 18 /min [facility] Work Phone: Comment on above: Pattern: Unlabored 12-31-2013 13:14-0400 Weight 92.53 kg [facility] Work Phone: 07-08-2013 16:43-0400 BMI (Body Mass Index) 37.92 kg/m2 [facility] Work Phone: 07-08-2013 16:43-0400 Body Temperature 97.6 [degF] [facility] Work Phone: 07-08-2013 16:43-0400 BP Diastolic 80 mm[Hg] [facility] Work Phone: Comment on above: Patient Position: Sitting; Cuff Location : Left Arm; Cuff Size: Large 07-08-2013 16:43-0400 BP Systolic 110 mm[Hg] [facility] Work Phone: Comment on above: Patient Position: Sitting; Cuff Location : Left Arm; Cuff Size: Large 07-08-2013 16:43-0400 BSA (Body Surface Area) 1.92 m2 [facility] Work Phone: 07-08-2013 16:43-0400 Height 156.21 cm [facility] Work Phone: 07-08-2013 16:43-0400 Pulse (Heart Rate) 72 /min [facility] Work Phone: Comment on above: Pattern: Regular 07-08-2013 16:43-0400 Respiratory Rate 18 /min [facility] Work Phone: Comment on above: Pattern: Unlabored 07-08-2013 16:43-0400 Weight 92.53 kg [facility] Work Phone: 03-04-2013 11:55-0400 BMI (Body Mass Index) 37.55 kg/m2 [facility] Work Phone: 03-04-2013 11:55-0400 Body Temperature 96.9 [degF] [facility] Work Phone: 03-04-2013 11:55-0400 BP Diastolic 80 mm[Hg] [facility] Work Phone: Comment on above: Patient Position: Sitting; Cuff Location : Left Arm; Cuff Size: Large 03-04-2013 11:55-0400 BP Systolic 110 mm[Hg] [facility] Work Phone: Comment on above: Patient Position: Sitting; Cuff Location : Left Arm; Cuff Size: Large 03-04-2013 11:55-0400 BSA (Body Surface Area) 1.91 m2 [facility] Work Phone: 03-04-2013 11:55-0400 Height 156.21 cm [facility] Work Phone: 03-04-2013 11:55-0400 Pulse (Heart Rate) 60 /min [facility] Work Phone: Comment on above: Pattern: Regular 03-04-2013 11:55-0400 Respiratory Rate 18 /min [facility] Work Phone: Comment on above: Pattern: Unlabored 03-04-2013 11:55-0400 Weight 91.63 kg [facility] Work Phone: 10-05-2012 08:22-0500 BMI (Body Mass Index) 38.85 kg/m2 [facility] Work Phone: 10-05-2012 08:22-0500 Body Temperature 96.9 [degF] [facility] Work Phone: 10-05-2012 08:22-0500 BP Diastolic 70 mm[Hg] [facility] Work Phone: Comment on above: Patient Position: Sitting; Cuff Location : Left Arm; Cuff Size: Large 10-05-2012 08:22-0500 BP Systolic 108 mm[Hg] [facility] Work Phone: Comment on above: Patient Position: Sitting; Cuff Location : Left Arm; Cuff Size: Large 10-05-2012 08:22-0500 BSA (Body Surface Area) 1.94 m2 [facility] Work Phone: 10-05-2012 08:22-0500 Height 156.21 cm [facility] Work Phone: 10-05-2012 08:22-0500 Pulse (Heart Rate) 66 /min [facility] Work Phone: Comment on above: Pattern: Regular 10-05-2012 08:22-0500 Respiratory Rate 18 /min [facility] Work Phone: Comment on above: Pattern: Unlabored 10-05-2012 08:22-0500 Weight 94.8 kg [facility] Work Phone: 07-03-2012 08:03-0400 BMI (Body Mass Index) 38.29 kg/m2 [facility] Work Phone: 07-03-2012 08:03-0400 Body Temperature 97.1 [degF] [facility] Work Phone: 07-03-2012 08:03-0400 BP Diastolic 66 mm[Hg] [facility] Work Phone: Comment on above: Patient Position: Sitting; Cuff Location : Left Arm; Cuff Size: Large 07-03-2012 08:03-0400 BP Systolic 100 mm[Hg] [facility] Work Phone: Comment on above: Patient Position: Sitting; Cuff Location : Left Arm; Cuff Size: Large 07-03-2012 08:03-0400 BSA (Body Surface Area) 1.92 m2 [facility] Work Phone: 07-03-2012 08:03-0400 Height 156.21 cm [facility] Work Phone: 07-03-2012 08:03-0400 Pulse (Heart Rate) 72 /min [facility] Work Phone: Comment on above: Pattern: Regular 07-03-2012 08:03-0400 Respiratory Rate 18 /min [facility] Work Phone: Comment on above: Pattern: Unlabored 07-03-2012 08:03-0400 Weight 93.44 kg [facility] Work Phone: 03-26-2012 17:00-0400 BMI (Body Mass Index) 39.59 kg/m2 [facility] Medicine Work Phone: 03-26-2012 17:00-0400 Body Temperature 97.7 [degF] [facility] Work Phone: 03-26-2012 17:00-0400 BP Diastolic 92 mm[Hg] [facility] Work Phone: Comment on above: Patient Position: Sitting; Cuff Location : Left Arm; Cuff Size: Large 03-26-2012 17:00-0400 BP Systolic 138 mm[Hg] [facility] Work Phone: Comment on above: Patient Position: Sitting; Cuff Location : Left Arm; Cuff Size: Large 03-26-2012 17:00-0400 BSA (Body Surface Area) 1.95 m2 [facility] Work Phone: 03-26-2012 17:00-0400 Height 156.21 cm [facility] Work Phone: 03-26-2012 17:00-0400 Pulse (Heart Rate) 74 /min [facility] Work Phone: Comment on above: Pattern: Regular 03-26-2012 17:00-0400 Respiratory Rate 18 /min [facility] Work Phone: Comment on above: Pattern: Unlabored 03-26-2012 17:00-0400 Weight 96.62 kg [facility] Work Phone: 10-26-2011 16:01-0500 BMI (Body Mass Index) 37.18 kg/m2 [facility] Internal Medicine Work Phone: 10-26-2011 16:01-0500 Body Temperature 97.7 [degF] [facility] Work Phone: 10-26-2011 16:01-0500 BP Diastolic 90 mm[Hg] [facility] Internal Medicine Work Phone: Comment on above: Patient Position: Sitting; Cuff Location : Left Arm; Cuff Size: Large 10-26-2011 16:01-0500 BP Systolic 118 mm[Hg] [facility] Internal Medicine Work Phone: Comment on above: Patient Position: Sitting; Cuff Location : Left Arm; Cuff Size: Large 10-26-2011 16:01-0500 BSA (Body Surface Area) 1.9 m2 [facility] Work Phone: 10-26-2011 16:01-0500 Height 156.21 cm [facility] Work Phone: 10-26-2011 16:01-0500 Pulse (Heart Rate) 80 /min [facility] Work Phone: Comment on above: Pattern: Regular 10-26-2011 16:01-0500 Respiratory Rate 16 /min [facility] Work Phone: Comment on above: Pattern: Unlabored 10-26-2011 16:01-0500 Weight 90.72 kg [facility] Work Phone: 06-29-2011 14:04-0400 BP Diastolic 94 mm[Hg] [facility] Work Phone: Comment on above: Patient Position: Sitting; Cuff Location : Left Arm; Cuff Size: Standard 06-29-2011 14:04-0400 BP Systolic 132 mm[Hg] [facility] Work Phone: Comment on above: Patient Position: Sitting; Cuff Location : Left Arm; Cuff Size: Standard 06-29-2011 13:31-0400 BMI (Body Mass Index) 34.95 kg/m2 [facility] Work Phone: 06-29-2011 13:31-0400 Body Temperature 97.8 [degF] [facility] Work Phone: 06-29-2011 13:31-0400 BP Diastolic 94 mm[Hg] [facility] Work Phone: Comment on above: Patient Position: Sitting; Cuff Location : Left Arm; Cuff Size: Large 06-29-2011 13:31-0400 BP Systolic 140 mm[Hg] [facility] Work Phone: Comment on above: Patient Position: Sitting; Cuff Location : Left Arm; Cuff Size: Large 06-29-2011 13:31-0400 BSA (Body Surface Area) 1.85 m2 [facility] Work Phone: 06-29-2011 13:31-0400 Height 156.21 cm [facility] Work Phone: 06-29-2011 13:31-0400 Pulse (Heart Rate) 64 /min [facility] Work Phone: Comment on above: Pattern: Regular 06-29-2011 13:31-0400 Respiratory Rate 16 /min [facility] Work Phone: Comment on above: Pattern: Unlabored 06-29-2011 13:31-0400 Weight 85.28 kg [facility] Work Phone: 02-08-2011 14:47-0400 BMI (Body Mass Index) 35.22 kg/m2 [facility] Work Phone: 02-08-2011 14:47-0400 Body Temperature 98.3 [degF] [facility] Work Phone: 02-08-2011 14:47-0400 BP Diastolic 84 mm[Hg] [facility] Work Phone: Comment on above: Patient Position: Sitting; Cuff Location : Left Arm; Cuff Size: Large 02-08-2011 14:47-0400 BP Systolic 132 mm[Hg] [facility] Work Phone: Comment on above: Patient Position: Sitting; Cuff Location : Left Arm; Cuff Size: Large 02-08-2011 14:47-0400 BSA (Body Surface Area) 1.87 m2 [facility] Work Phone: 02-08-2011 14:47-0400 Height 156.84 cm [facility] Work Phone: 02-08-2011 14:47-0400 Pulse (Heart Rate) 64 /min [facility] Work Phone: Comment on above: Pattern: Regular 02-08-2011 14:47-0400 Respiratory Rate 16 /min [facility] Work Phone: Comment on above: Pattern: Unlabored 02-08-2011 14:47-0400 Weight 86.64 kg [facility] Work Phone: 10-25-2010 17:15-0500 Body Temperature 97 [degF] [facility] Work Phone: 10-25-2010 17:15-0500 BP Diastolic 94 mm[Hg] [facility] Work Phone: Comment on above: Patient Position: Sitting; Cuff Location : Left Arm; Cuff Size: Standard 10-25-2010 17:15-0500 BP Systolic 134 mm[Hg] [facility] Work Phone: Comment on above: Patient Position: Sitting; Cuff Location : Left Arm; Cuff Size: Standard 10-25-2010 17:15-0500 Pulse (Heart Rate) 72 /min [facility] Work Phone: Comment on above: Pattern: Regular 10-25-2010 17:15-0500 Respiratory Rate 18 /min [facility] Work Phone: Comment on above: Pattern: Unlabored 10-25-2010 17:15-0500 Weight 93.44 kg [facility] Work Phone: 09-13-2010 08:40-0500 Body Temperature 97.2 [degF] [facility] Work Phone: Comment on above: Method: Oral 09-13-2010 08:40-0500 BP Diastolic 78 mm[Hg] [facility] Work Phone: Comment on above: Patient Position: Sitting; Cuff Location : Left Arm; Cuff Size: Large 09-13-2010 08:40-0500 BP Systolic 122 mm[Hg] [facility] Work Phone: Comment on above: Patient Position: Sitting; Cuff Location : Left Arm; Cuff Size: Large 09-13-2010 08:40-0500 Pulse (Heart Rate) 72 /min [facility] Work Phone: Comment on above: Pattern: Regular 09-13-2010 08:40-0500 Respiratory Rate 20 /min [facility] Work Phone: Comment on above: Pattern: Unlabored 09-13-2010 08:40-0500 Weight 97.07 kg [facility] Work Phone: 07-26-2010 16:34-0400 Body Temperature 97.8 [degF] [facility] Work Phone: 07-26-2010 16:34-0400 BP Diastolic 94 mm[Hg] [facility] Work Phone: Comment on above: Patient Position: Sitting; Cuff Location : Left Arm; Cuff Size: Large 07-26-2010 16:34-0400 BP Systolic 140 mm[Hg] [facility] Work Phone: Comment on above: Patient Position: Sitting; Cuff Location : Left Arm; Cuff Size: Large 07-26-2010 16:34-0400 Pulse (Heart Rate) 88 /min [facility] Work Phone: Comment on above: Pattern: Regular 07-26-2010 16:34-0400 Respiratory Rate 20 /min [facility] Work Phone: Comment on above: Pattern: Unlabored 07-26-2010 16:34-0400 Weight 97.07 kg [facility] Work Phone: 06-22-2010 08:03-0400 Body Temperature 97.4 [degF] [facility] Work Phone: 06-22-2010 08:03-0400 BP Diastolic 86 mm[Hg] [facility] Work Phone: Comment on above: Patient Position: Sitting; Cuff Location : Left Arm; Cuff Size: Large 06-22-2010 08:03-0400 BP Systolic 142 mm[Hg] [facility] Work Phone: Comment on above: Patient Position: Sitting; Cuff Location : Left Arm; Cuff Size: Large 06-22-2010 08:03-0400 Pulse (Heart Rate) 68 /min [facility] Work Phone: Comment on above: Pattern: Regular 06-22-2010 08:03-0400 Respiratory Rate 18 /min [facility] Work Phone: Comment on above: Pattern: Unlabored 06-22-2010 08:03-0400 Weight 93.9 kg [facility] Work Phone: 04-13-2010 15:34-0400 Body Temperature 97.8 [degF] [facility] Work Phone: 04-13-2010 15:34-0400 BP Diastolic 84 mm[Hg] [facility] Work Phone: Comment on above: Patient Position: Sitting; Cuff Location : Left Arm; Cuff Size: Standard 04-13-2010 15:34-0400 BP Systolic 136 mm[Hg] [facility] Work Phone: Comment on above: Patient Position: Sitting; Cuff Location : Left Arm; Cuff Size: Standard 04-13-2010 15:34-0400 Pulse (Heart Rate) 80 /min [facility] Work Phone: Comment on above: Pattern: Regular 04-13-2010 15:34-0400 Respiratory Rate 18 /min [facility] Work Phone: Comment on above: Pattern: Unlabored 04-13-2010 15:34-0400 Weight 95.71 kg [facility] Work Phone: 11-09-2009 15:17-0500 Body Temperature 97.3 [degF] [facility] Work Phone: 11-09-2009 15:17-0500 BP Diastolic 86 mm[Hg] [facility] Work Phone: Comment on above: Patient Position: Sitting; Cuff Location : Left Arm; Cuff Size: Large 11-09-2009 15:17-0500 BP Systolic 158 mm[Hg] [facility] Work Phone: Comment on above: Patient Position: Sitting; Cuff Location : Left Arm; Cuff Size: Large 11-09-2009 15:17-0500 Pulse (Heart Rate) 72 /min [facility] Work Phone: Comment on above: Pattern: Regular 11-09-2009 15:17-0500 Respiratory Rate 18 /min [facility] Work Phone: Comment on above: Pattern: Unlabored 11-09-2009 15:17-0500 Weight 89.81 kg [facility] Work Phone: 05-04-2009 15:25-0400 BMI (Body Mass Index) 35.55 kg/m2 [facility] Work Phone: 05-04-2009 15:25-0400 BP Diastolic 78 mm[Hg] [facility] Work Phone: Comment on above: Patient Position: Supine; Cuff Location: Left Arm; Cuff Size: Standard 05-04-2009 15:25-0400 BP Systolic 120 mm[Hg] [facility] Work Phone: Comment on above: Patient Position: Supine; Cuff Location: Left Arm; Cuff Size: Standard 05-04-2009 15:25-0400 BSA (Body Surface Area) 1.89 m2 [facility] Work Phone: 05-04-2009 15:25-0400 Head Circumference 0 cm [facility] Work Phone: 05-04-2009 15:25-0400 Height 157.48 cm [facility] Work Phone: 05-04-2009 15:25-0400 Pulse (Heart Rate) 60 /min [facility] Work Phone: Comment on above: Pattern: Regular 05-04-2009 15:25-0400 Respiratory Rate 16 /min [facility] Work Phone: Comment on above: Pattern: Unlabored 05-04-2009 15:25-0400 Weight 88.17 kg [facility] Work Phone: 12-08-2008 13:08-0500 Body Temperature 98.2 [degF] [facility] Work Phone: Comment on above: Method: Undefined 12-08-2008 13:08-0500 BP Diastolic 74 mm[Hg] [facility] Work Phone: Comment on above: Patient Position: Sitting; Cuff Location : Right Arm; Cuff Size: Large 12-08-2008 13:08-0500 BP Systolic 110 mm[Hg] [facility] Work Phone: Comment on above: Patient Position: Sitting; Cuff Location : Right Arm; Cuff Size: Large 12-08-2008 13:08-0500 Head Circumference 0 cm [facility] Work Phone: 12-08-2008 13:08-0500 Height 0 cm [facility] Work Phone: 12-08-2008 13:08-0500 Pulse (Heart Rate) 60 /min [facility] Work Phone: Comment on above: Pattern: Regular 12-08-2008 13:08-0500 Respiratory Rate 18 /min [facility] Work Phone: Comment on above: Pattern: Undefined 12-08-2008 13:08-0500 Weight 89.81 kg [facility] Work Phone: 08-11-2008 13:13-0400 BP Diastolic 80 mm[Hg] [facility] Work Phone: Comment on above: Patient Position: Sitting; Cuff Location : Left Arm; Cuff Size: Standard 08-11-2008 13:13-0400 BP Systolic 118 mm[Hg] [facility] Work Phone: Comment on above: Patient Position: Sitting; Cuff Location : Left Arm; Cuff Size: Standard 08-11-2008 13:13-0400 Head Circumference 0 cm [facility] Work Phone: 08-11-2008 13:13-0400 Height 0 cm [facility] Work Phone: 08-11-2008 13:13-0400 Pulse (Heart Rate) 60 /min [facility] Work Phone: Comment on above: Pattern: Regular 08-11-2008 13:13-0400 Respiratory Rate 16 /min [facility] Work Phone: Comment on above: Pattern: Unlabored 08-11-2008 13:13-0400 Weight 91.4 kg [facility] Work Phone: 05-06-2008 13:20-0400 Body Temperature 98.4 [degF] [facility] Work Phone: Comment on above: Method: Undefined 05-06-2008 13:20-0400 BP Diastolic 82 mm[Hg] [facility] Work Phone: Comment on above: Patient Position: Sitting; Cuff Location : Right Arm; Cuff Size: Large 05-06-2008 13:20-0400 BP Systolic 122 mm[Hg] [facility] Work Phone: Comment on above: Patient Position: Sitting; Cuff Location : Right Arm; Cuff Size: Large 05-06-2008 13:20-0400 Head Circumference 0 cm [facility] Work Phone: 05-06-2008 13:20-0400 Height 0 cm [facility] Work Phone: 05-06-2008 13:20-0400 Pulse (Heart Rate) 64 /min [facility] Work Phone: Comment on above: Pattern: Regular 05-06-2008 13:20-0400 Respiratory Rate 18 /min [facility] Work Phone: Comment on above: Pattern: Undefined 05-06-2008 13:20-0400 Weight 91.17 kg [facility] Work Phone: 04-09-2008 08:24-0400 Body Temperature 97.4 [degF] [facility] Work Phone: Comment on above: Method: Undefined 04-09-2008 08:24-0400 BP Diastolic 94 mm[Hg] [facility] Work Phone: Comment on above: Patient Position: Sitting; Cuff Location : Left Arm; Cuff Size: Standard 04-09-2008 08:24-0400 BP Systolic 136 mm[Hg] [facility] Work Phone: Comment on above: Patient Position: Sitting; Cuff Location : Left Arm; Cuff Size: Standard 04-09-2008 08:24-0400 Head Circumference 0 cm [facility] Work Phone: 04-09-2008 08:24-0400 Height 0 cm [facility] Work Phone: 04-09-2008 08:24-0400 Pulse (Heart Rate) 56 /min [facility] Work Phone: Comment on above: Pattern: Regular 04-09-2008 08:24-0400 Respiratory Rate 16 /min [facility] Work Phone: Comment on above: Pattern: Undefined 04-09-2008 08:24-0400 Weight 90.27 kg [facility] Work Phone: 12-25-2007 09:40-0500 BMI (Body Mass Index) 36.58 kg/m2 [facility] Work Phone: 12-25-2007 09:40-0500 Body Temperature 98.1 [degF] [facility] Work Phone: Comment on above: Method: Undefined 12-25-2007 09:40-0500 BP Diastolic 68 mm[Hg] [facility] Work Phone: Comment on above: Patient Position: Sitting; Cuff Location : Right Arm; Cuff Size: Standard 12-25-2007 09:40-0500 BP Systolic 116 mm[Hg] [facility] Work Phone: Comment on above: Patient Position: Sitting; Cuff Location : Right Arm; Cuff Size: Standard 12-25-2007 09:40-0500 BSA (Body Surface Area) 1.91 m2 [facility] Work Phone: 12-25-2007 09:40-0500 Head Circumference 0 cm [facility] Work Phone: 12-25-2007 09:40-0500 Height 157.48 cm [facility] Work Phone: 12-25-2007 09:40-0500 Pulse (Heart Rate) 56 /min [facility] Work Phone: Comment on above: Pattern: Regular 12-25-2007 09:40-0500 Respiratory Rate 18 /min [facility] Work Phone: Comment on above: Pattern: Undefined 12-25-2007 09:40-0500 Weight 90.72 kg [facility] Work Phone: 12-17-2007 12:09-0500 Body Temperature 97.3 [degF] [facility] Work Phone: Comment on above: Method: Oral 12-17-2007 12:09-0500 BP Diastolic 76 mm[Hg] [facility] Work Phone: Comment on above: Patient Position: Sitting; Cuff Location : Left Arm; Cuff Size: Large 12-17-2007 12:09-0500 BP Systolic 110 mm[Hg] [facility] Work Phone: Comment on above: Patient Position: Sitting; Cuff Location : Left Arm; Cuff Size: Large 12-17-2007 12:09-0500 Head Circumference 0 cm [facility] Work Phone: 12-17-2007 12:09-0500 Height 0 cm [facility] Work Phone: 12-17-2007 12:09-0500 Pulse (Heart Rate) 80 /min [facility] Work Phone: Comment on above: Pattern: Regular 12-17-2007 12:09-0500 Respiratory Rate 20 /min [facility] Work Phone: Comment on above: Pattern: Unlabored 12-17-2007 12:09-0500 Weight 0 kg [facility] Work Phone: 02-12-2007 11:53-0400 Body Temperature 97.4 [degF] [facility] Work Phone: Comment on above: Method: Oral 02-12-2007 11:53-0400 BP Diastolic 100 mm[Hg] [facility] Work Phone: Comment on above: Patient Position: Sitting; Cuff Location : Right Arm; Cuff Size: Large 02-12-2007 11:53-0400 BP Systolic 148 mm[Hg] [facility] Work Phone: Comment on above: Patient Position: Sitting; Cuff Location : Right Arm; Cuff Size: Large 02-12-2007 11:53-0400 Head Circumference 0 cm [facility] Work Phone: 02-12-2007 11:53-0400 Height 0 cm [facility] Work Phone: 02-12-2007 11:53-0400 Pulse (Heart Rate) 68 /min [facility] Work Phone: Comment on above: Pattern: Regular 02-12-2007 11:53-0400 Respiratory Rate 16 /min [facility] Work Phone: Comment on above: Pattern: Unlabored 02-12-2007 11:53-0400 Weight 91.8 kg [facility] Work Phone: 01-11-2007 12:10-0400 BMI (Body Mass Index) 36.95 kg/m2 [facility] Work Phone: 01-11-2007 12:10-0400 Body Temperature 98.3 [degF] [facility] Work Phone: Comment on above: Method: Oral 01-11-2007 12:10-0400 BP Diastolic 96 mm[Hg] [facility] Work Phone: Comment on above: Patient Position: Sitting; Cuff Location : Left Arm; Cuff Size: Standard 01-11-2007 12:10-0400 BP Systolic 140 mm[Hg] [facility] Work Phone: Comment on above: Patient Position: Sitting; Cuff Location : Left Arm; Cuff Size: Standard 01-11-2007 12:10-0400 BSA (Body Surface Area) 1.92 m2 [facility] Work Phone: 01-11-2007 12:10-0400 Head Circumference 0 cm [facility] Work Phone: 01-11-2007 12:10-0400 Height 157.48 cm [facility] Work Phone: 01-11-2007 12:10-0400 Pulse (Heart Rate) 72 /min [facility] Work Phone: Comment on above: Pattern: Regular 01-11-2007 12:10-0400 Respiratory Rate 16 /min [facility] Work Phone: Comment on above: Pattern: Unlabored 01-11-2007 12:10-0400 Weight 91.63 kg [facility] Work Phone: Encounters Encounter Date Encounter Type Care Provider Facility Start: 07-24-2025 End: 07-24-2025 ambulatory ERNESTINA RE Facility:[facility] Start: 07-11-2025 Encounter for other preprocedural examination ERNESTINA GRIMALDO [facility] Start: 07-11-[facility] Start: 06-05-2025 End: 06-05-2025 Patient encounter procedure Ernestina Grimaldo MD Work Phone: [facility] Comment on above: Gastroesophageal ref lux disease, unspecified whether esophagitis present (Primary Dx); Hiatal hernia; Esophageal dysphagia; Type 2 diabetes mellitus with other specified complication, without long-term current use of insulin (HCC); Hypertension, unspecified type; Hyperlipidemia, unspecified hyperlipidemia type; Osteopenia, unspecified location; Class 1 obesity with serious comorbidity and body mass index (BMI) of 31.0 to 31.9 in adult, unspecified obesity type Start: 06-05-2025 End: 06-05-2025 [facility] ERNESTINA RE Facility:[facility] Start: 04-15-2025 End: 04-21-2025 Follow-up encounter Leila Manfsield APRN.CNP Work Phone: [facility] Start: 04-11-2025 End: 04-11-2025 Admission to same day surgery center Kyle Alexandra APRN.CNP Work Phone: [facility] Comment on above: Appointment with Gen eral Surgery Start: 04-11-2025 End: 04-11-2025 E-mail encounter from caregiver Kyle Alexandra APRN.CNP Work Phone: [facility] Start: 04-11-2025 End: 04-11-2025 ambulatory JOSE BULLARD Facility:[facility] Start: 04-09-2025 ambulatory KYLE ALEXANDRA Facility :[facility] Start: 04-09-2025 End: 04-09-2025 Subsequent hospital visit by physician Gi/Gu [facility] Comment on above: Gastroesophageal ref lux disease, unspecified whether esophagitis present [K21.9] Start: 03-24-2025 End: 03-24-2025 Patient encounter procedure Jose Bullard MD Work Phone: [facility] Comment on above: Hypertension, essent ial (Primary Dx); Hyperlipidemia, mixed; GERD without esophagitis; Stage 3 chronic kidney disease, unspecified whether stage 3a or 3b CKD (HCC); Controlled type 2 diabetes mellitus without complication, unspecified whether half-way insulin use (HCC); Osteopenia, unspecified location; Obesity, Class I, BMI 30-34.9; Callus; Encounter for screening mammogram for breast cancer Start: 03-24-2025 End: 03-24-2025 ambulatory JOSE BULLARD Facility:[facility] Start: 03-24-2025 End: 05-24-2025 Follow-up encounter Kyle Alexandra APRN.CNP Work Phone: [facility] Start: 03-21-2025 ambulatory KYLE ALEXANDRA Facility :[facility] Start: 03-21-2025 End: 03-21-2025 Subsequent hospital visit by physician [facility] Work Phone: Nuclear Medicine Comment on above: Early satiety [R68.8 1] Start: 03-11-2025 End: 03-11-2025 ambulatory KYLE ALEXANDRA Facility:[facility] Start: 01-03-2025 End: 01-03-2025 ambulatory JOSE BULLARD Facility:[facility] Start: 01-03-2025 End: 01-03-2025 Office outpatient visit 25 minutes Jose Bullard MD Work Phone: [facility] Comment on above: Cyclical vomiting sy ndrome not associated with migraine (Primary Dx); Flank pain; Controlled type 2 diabetes mellitus without complication, unspecified whether half-way insulin use (HCC) Start: 12-31-2024 End: 12-31-2024 Emergency department patient visit Carlos A Velez Facility:[facility] Start: 12-31-2024 End: 12-31-2024 ambulatory LEILA MANSFIELD Facility:[facility] Start: 12-31-2024 End: 12-31-2024 Office outpatient visit 15 minutes Leila Mansfield APRN.[employer]GE[employer] Work Phone: [facility] Comment on above: Acute left flank coty n (Primary Dx) Start: 12-31-2024 End: 01-01-2025 Telephone encounter Leila Mansfield APRN.[employer]GEANT Work Phone: [facility] Comment on above: Appointment Start: 12-30-2024 End: 12-30-2024 Emergency department patient visit Carlos A Rosie Facility:[facility] Start: 09-30-2024 End: 09-30-2024 ambulatory [facility] Facility:[facility] Start: 09-23-2024 End: 09-23-2024 Patient encounter procedure Jose Bullard MD Work Phone: [facility] Comment on above: Hypertension, essent ial (Primary Dx); Encounter for immunization; Hyperlipidemia, mixed; GERD without esophagitis; Gastritis without bleeding, unspecified chronicity, unspecified gastritis type; Stage 3 chronic kidney disease, unspecified whether stage 3a or 3b CKD (HCC); Controlled type 2 diabetes mellitus without complication, unspecified whether half-way insulin use (HCC); Obesity, Class I, BMI 30-34.9; Encounter for screening examination for other mental health and behavioral disorders; Screening for depression; Medication monitoring encounter Start: 09-23-2024 End: 09-23-2024 ambulatory [facility] Facility:[facility] Start: 08-07-2024 ambulatory [facility] Facility :[facility] Start: 08-07-2024 End: 08-07-2024 Subsequent hospital visit by physician Sussy Reid MD Work Phone: [facility] Endoscopy Comment on above: Gastritis without bl eeding, unspecified chronicity, unspecified gastritis type [K29.70] Start: 07-23-2024 End: 07-25-2024 Refill Kip Zhang DO Work Phone: General Surgery Comment on above: Med Change Request Start: 06-26-2024 End: 06-26-2024 ambulatory KIP ZHANG Facility:[facility] Start: 06-26-2024 End: 06-26-2024 Office consultation new/estab patient 40 min Kip Zhang DO Work Phone: General Surgery Comment on above: Gastritis without bl eeding, unspecified chronicity, unspecified gastritis type (Primary Dx); Hiatal hernia Start: 06-12-2024 End: 06-13-2024 Documentation procedure Mammography Coordinator [facility] Start: 06-12-2024 End: 06-13-2024 Letter encounter Mammography Coordinator [facility] Start: 06-11-2024 End: 06-11-2024 ambulatory JOSE BULLARD Facility:[facility] Start: 06-11-2024 End: 06-11-2024 Subsequent hospital visit by physician Screen Mammo [facility] Mammogram Comment on above: Encounter for screen ing mammogram for breast cancer [Z12.31] Start: 06-05-2024 End: 06-05-2024 Office outpatient visit 25 minutes Melany Kuo DYEHOUSE WORKER.[employer] MEDICAL SERGEANT Work Phone: [facility] [place] Comment on above: Gastritis without bl eeding, unspecified chronicity, unspecified gastritis type (Primary Dx) Start: 06-05-2024 End: 06-05-2024 ambulatory MELANY EJ Facility:[facility] Start: 06-04-2024 End: 06-04-2024 Emergency department patient visit [place] Facility:[facility] Start: 06-04-2024 End: 06-04-2024 Patient encounter procedure Kyleigh Matson DYEHOUSE WORKER.[employer] MEDICAL SERGEANT Work Phone: [facility] Comment on above: Abdominal pain, unsp ecified abdominal location (Primary Dx); Nausea vomiting and diarrhea Start: 06-04-2024 End: 06-04-2024 ambulatory JOSE Sara ALEAH Facility:[facility] Start: 04-16-2024 End: 04-16-2024 Emergency department patient visit [facility] Facility:[facility] Start: 04-12-2024 End: 04-12-2024 Subsequent hospital visit by physician Bone Density [facility] Work Phone: Radiology Comment on above: Osteopenia, unspecif ied location [M85.80] Start: 03-22-2024 End: 03-22-2024 Patient encounter procedure Jose Bullard MD Work Phone: [facility] [place] Comment on above: Stage 3 chronic kidn ey disease, unspecified whether stage 3a or 3b CKD (HCC) (Primary Dx); Encounter for screening mammogram for breast cancer; Hypertension, essential; Controlled type 2 diabetes mellitus without complication, unspecified whether parts counterman insulin use (HCC); GERD without esophagitis; Esophageal dysphagia; Hyperlipidemia, mixed; Osteopenia, unspecified location; Obesity, Class I, BMI 30-34.9; Asymptomatic postmenopausal status Start: 09-05-2023 End: 09-05-2023 Patient encounter procedure Sayda Chevy QUAN Work Phone: [facility] Comment on above: Encounter to obtain excuse from work (Primary Dx) Start: 09-05-2023 ambulatory Jose Bullard MD Work Phone: [facility] Start: 09-05-2023 Letter encounter Jose tatum MD Work Phone: [facility] Comment on above: Need a letter statin g I m ok to return to work Start: 06-12-2023 Documentation procedure [facility]og [facility] Start: 06-12-2023 Letter encounter Mammography Coordinator [facility] Department Start: 06-09-2023 End: 06-09-2023 Subsequent hospital visit by physician Screen Mammo [facility] Comment on above: Encounter for screen ing mammogram for breast cancer [Z12.31] Start: 05-10-2023 Telephone encounter Jose Bullard MD Work Phone: Internal Medicine [place] Comment on above: Patient Update Start: 01-19-2023 Refill Jose Bullard MD Work Phone: [facility] Comment on above: Refill Request Results results colonoscopy Start: 11-22-2022 End: 11-22-2022 Patient encounter procedure Sussy Reid MD Work Phone: General Surgery Comment on above: Screening for colon cancer Start: 11-15-2022 End: 11-15-2022 Patient encounter procedure Jose Bullard MD Work Phone: [facility] Comment on above: Hypertension, essent ial (Primary Dx); Hyperlipidemia, mixed; GERD without esophagitis; Esophageal dysphagia; Screening for colon cancer Start: 08-02-2022 Marii Aguilar on PA-C Work Phone: [facility] [place] Comment on above: Refill Request Start: 05-13-2022 End: 05-13-2022 Patient encounter procedure Jose Bullard MD Work Phone: [facility] Comment on above: Dysphagia, unspecifi ed type (Primary Dx); Screening for colon cancer; Hypertension, essential; Hyperlipidemia, mixed; Stage 3 chronic kidney disease, unspecified whether stage 3a or 3b CKD (HCC) Start: 05-09-2022 Telephone encounter Sussy Gutierrez MD Work Phone: General Surgery Comment on above: 05/19/2022 EGD LODI Start: 05-06-2022 End: 05-06-2022 Patient encounter procedure Sussy Reid MD Work Phone: General Surgery Comment on above: Pharyngoesophageal d ysphagia (Primary Dx) Start: 04-29-2022 Documentation procedure Mammog peri Coordinator [facility] Start: 04-29-2022 Letter encounter Mammography Coordinator [facility] Department Start: 04-29-2022 End: 04-29-2022 Patient encounter procedure Jose Bullard MD Work Phone: [facility] [place] Comment on above: Esophageal dysphagia (Primary Dx); Hypertension, essential; Hyperlipidemia, mixed; GERD without esophagitis; Controlled type 2 diabetes mellitus without complication, 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 whether parts 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 insulin 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 (HCC); Need for hepatitis C screening test; Screening for HIV (human immunodeficiency virus) Start: 04-29-2022 End: 04-29-2022 Subsequent hospital visit by physician Screen Mammo [facility] Comment on above: Encounter for screen ing mammogram for breast cancer [Z12.31] Start: 04-27-2022 ambulatory Jose Bullard MD Work Phone: [facility] [place] Comment on above: Prescription renewal Start: 09-11-2021 End: 09-11-2021 Subsequent hospital visit by physician Xr [facility] Work Phone: Radiology Comment on above: Toe pain, right [M79 .674] Start: 09-08-2017 End: 09-28-2017 Office outpatient visit 25 minutes [facility] Start: 05-29-2017 End: 05-29-2017 Phone Encounter [facility] [employer] [facility] Start: 05-22-2017 End: 05-22-2017 Office outpatient visit 25 minutes [facility] Start: 11-07-2016 End: 11-07-2016 Phone Encounter [facility] [employer] [facility] Start: 10-28-2016 End: 10-28-2016 Office outpatient visit 25 minutes [facility] Start: 09-02-2016 End: 09-08-2016 Office outpatient visit 15 minutes [facility] Start: 06-10-2016 End: 06-10-2016 Office outpatient visit 25 minutes [facility] Start: 01-20-2016 End: 01-21-2016 Office outpatient visit 25 minutes [facility] Start: 09-15-2015 End: 09-15-2015 Office outpatient visit 5 minutes [facility] Start: 09-09-2015 End: 09-09-2015 Office outpatient visit 25 minutes [facility] Start: 05-11-2015 End: 05-11-2015 Office outpatient visit 25 minutes [facility] Start: 12-29-2014 End: 12-29-2014 Office outpatient visit 25 minutes [facility] Start: 11-26-2014 End: 11-26-2014 Office outpatient visit 25 minutes [facility] Start: 06-11-2014 End: 06-11-2014 Office outpatient visit 25 minutes [facility] Start: 02-12-2014 End: 02-12-2014 Patient encounter [facility] Start: 12-31-2013 End: 12-31-2013 Patient encounter [facility] Start: 09-27-2013 End: 09-27-2013 Phone Encounter [facility] Start: 07-23-2013 End: 07-23-2013 Phone Encounter [facility] Start: 07-08-2013 End: 07-08-2013 Patient encounter [facility] Start: 03-04-2013 End: 03-04-2013 Patient encounter [facility] Start: 10-05-2012 End: 10-05-2012 Patient encounter Ines [facility] Start: 07-03-2012 End: 07-03-2012 Patient encounter Ines Reynoso [facility] Start: 03-26-2012 End: 03-26-2012 Patient encounter Ines Reynoso [facility] Start: 10-26-2011 End: 10-27-2011 Patient encounter Ines Reynoso [facility] Start: 06-29-2011 End: 06-29-2011 Patient encounter Ines [facility] Start: 02-08-2011 End: 02-08-2011 Patient encounter Ines Reynoso [facility] Start: 10-25-2010 End: 10-25-2010 Patient encounter Inesnoé Reynoso [facility] Start: 09-13-2010 End: 09-13-2010 Patient encounter Ines [facility] Start: 07-26-2010 End: 07-26-2010 Patient encounter Inesnoé Reynoso [facility] Start: 06-22-2010 End: 06-22-2010 Patient encounter Inesnoé Reyn[facility] Start: 04-13-2010 End: 04-13-2010 Patient encounter Ines Reyn[facility] Start: 11-09-2009 End: 11-09-2009 Patient encounter Ines Reyn[facility] Start: 05-04-2009 End: 05-04-2009 Patient encounter Inesnoé Reyn[facility] Start: 12-08-2008 End: 12-08-2008 Patient encounter Ines [facility] Start: 08-11-2008 End: 08-11-2008 Patient encounter Inesnoé Reynoso [facility] Start: 05-06-2008 End: 05-06-2008 Patient encounter Inesnoé Reynoso [facility] Start: 04-09-2008 End: 04-09-2008 Patient encounter Inesnoé Reyn[facility] Start: 12-25-2007 End: 12-25-2007 Patient encounter Inesnoé Reynoso [facility] Start: 12-17-2007 End: 12-17-2007 Patient encounter Inesnoé Reynoso [facility] Start: 02-12-2007 End: 02-12-2007 Patient encounter Inesnoé Reynoso [facility] Start: 01-11-2007 End: 01-15-2007 Office outpatient new 60 minutes Ines [facility] Procedures Date Procedure Procedure Detail Performing Clinician Start: 04-09-2025 Radiologic exam upr gi trc double contrast study 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.[employer] MEDICAL SERGEANT Work Phone: Start: 03-21-2025 Gastric emptying imaging study 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.[employer] MEDICAL SERGEANT Work Phone: Start: 12-31-2024 CT angiography of chest with contrast Dr. Jose Bullard MD Work Phone: Start: 12-30-2024 Computed tomography of abdomen and pelvis with contrast Dr. Jose Bullard MD Work Phone: Start: 09-23-2024 PFIZER-BIONTECH COVID-19 VACCINE AGE 12+ YR (COMIRNATY) Jose Bullard MD Work Phone: Start: 09-23-2024 Adult depression screening assessment Jose Bullard MD Work Phone: Start: 08-07-2024 End: 08-07-2024 Gluc bld gluc mntr dev cleared fda spec home use Paulo Herzog DYEHOUSE WORKER.BREAKER MECHANIC Work Phone: Start: 08-07-2024 Esophagogastroduodenoscopy transoral diagnostic Kip Zhang DO Work Phone: Start: 11-17-2023 H/O: tubal ligation History of tubal ligation Jose Bullard MD Work Phone: Start: 06-09-2023 End: 06-09-2023 Mammography Jose Bullard MD Work Phone: Start: 01-13-2023 Colonoscopy Jose Bullard MD Work Phone: Start: 04-29-2022 Adult depression screening assessment Jose Bullard MD Work Phone: Start: 04-29-2022 End: 04-29-2022 Mammography Bulk Order Provider Start: 09-11-2021 Radex foot complete minimum 3 views Gail Fraser DYEHOUSE WORKER.[employer] MEDICAL SERGEANT Work Phone: Start: 12-05-2017 End: 12-06-2017 Dexa Bone Density Study (HP) Comments: See Note; NOTES: [facility] Imaging Services [address] [place] [address] Dexa Bone Density Study (HP) MR#: [id number] Acct: [id number] Name: SUSAN BOBBY Rep #: [id number] : 1960 F 57 From: Deny Hernandez MD PCP: Ines Reynoso DO Status: REG CLI Study: Dexa Bone Density Study () Date of Exam: 12/05/17 Exam# [id number] Ordering Dr: Ines Reynoso DO STUDY: DUAL ENERGY X-RAY ABSORPTIOMETRY / DXA REASON FOR EXAM: Female, 57 years old. The patient is postmenopausal. No loss of height. TECHNIQUE: Bone Mineral Density (BMD) measurements of lumbar spine and bilateral hips were obtained. COMPARISON: Comparison is made with prior study dated October 29, 2015. FINDINGS: Lumbar Spine (L1-L4): g/cm2 (0.927) / T-score (-2.3) / Z-score (-2.1) Findings are suggestive of osteopenia with a moderate fracture risk. Left Femur Total: g/cm2 (0.899) / T-score (-0.9) / Z-score (-1.1) Left Femoral Neck: g/cm2 (0.793) / T-score (-1.8) / Z-score (-1.6) Right Femur Total: g/cm2 (0.859) / T-score (-1.2) / Z-score (-1.5) Right Femoral Neck: g/cm2 (0.740) / T-score (-2.1) / Z-score (-2.0) The T-Scores on the most recent prior examination were: Lumbar Spine (L1-L4): There has been worsening of bone density since the previous examination. Left Femur Total: which represents a worsening of 5.3%. Right Femur Total: which represents a worsening of 3.4%. HPBD/Dexa Bone Density Study (HP) IMPRESSION: The patient is considered osteopenic as outlined below according to World Tang Organization (WHO) criteria with a moderate fracture risk. There has been worsening of bone density since the previous examination. Reference Information: The T-score is the number of standard deviations above or below the standard which is normal for young adults at their peak bone mineral density. The World Health Organization (WHO) interprets the T-scores as follows: Above -1 Normal bone density Between -1 and -2.5 Osteopenia Equal to / or below -2.5 Osteoporosis As a practical clinical guideline, osteopenia may be graded as follows: Mild -1 through -1.5 Moderate -1.6 through -2.0 Severe -2.1 through -2.4 The Z-score is the number of standard deviations above or below age-matched controls. A Z-score of less than -1.5 would be considered abnormal. References: 1. NIH Osteoporosis and Related Bone Diseases http://www.osteo.org 2. International Society for Clinical Densitometry http://www.iscd.org 3. National Osteoporosis Foundation http://www.nof.org Electronically Signed: Deny Hernandez MD at 8:41 EST Tel [phone], Service support , CC: Ines Reynoso DO Physical Testing Supervisor: Signed Ines Reynoso Work Phone: Start: 06-09-2017 End: 06-09-2017 Pelvic (Non ) Comments: See Note; NOTES: [facility] Imaging Services [address] [place] [address] Pelvic (Non ) MR#: [id number] Acct: [id number] Name: SUSAN BOBBY Rep #: [id number] : 1960 F 57 From: Gen Packer MD PCP: Ines Reynoso DO Status: REG CLI Study: Pelvic (Non ) Date of Exam: 06/09/17 Exam# [id number] Ordering Dr: Ines Reynoso DO STUDY: ULTRASOUND OF THE FEMALE PELVIS - COMPLETE REASON FOR EXAM: Female, 57 years old. Pelvic pain LMP: TECHNIQUE: Transabdominal and Transvaginal TECHNICAL QUALITY: Adequate. COMPARISON: None. FINDINGS: The uterus is anteverted and is in a midline position. The uterus measures 7.4 x 4.3 x 4.1 cm. Normal uterine cervix. The endometrium measures 4 mm in thickness, and is hyperechoic. There is no demonstrated endometrial mass. Uterus is heterogeneous consistent with fibroids, and 2 focal fibroids are seen measuring 2.5 and 1.5 cm. The right ovary is visualized. The right ovary measures 2.8 x 0.9 x 1.7 cm. There is no right ovarian cyst or ovarian mass. There is no visualized right adnexal mass or complex lesion. There is normal arterial and normal venous vascularity. The left ovary is visualized. The left ovary measures 2.1 x 1.7 x 1.8 cm. There is no left ovarian cyst or ovarian mass. There is no visualized left adnexal mass or complex lesion. There is normal arterial and normal venous vascularity. There is no fluid in the cul-de-sac. US/Pelvic (Non ) IMPRESSION: Probable diffuse leiomyomatous change of the uterus with 2 focal fibroids measuring 1.5 and 2.5 cm. Electronically Signed: Gen Packer MD at 19:44 EDT , Service support , CC: Ines Reynoso DO Physical Testing Supervisor: Signed Ines Reynoso Work Phone: Start: 06-09-2017 End: 06-09-2017 Transvaginal Non- Comments: See Note; NOTES: [facility] Imaging Services [address] [place], [place] [address] [address] Transvaginal Non- MR#: [id number] Acct: [id number] Name: SUSAN BOBBY Rep #: [id number] : 1960 F 57 From: Gen Packer MD PCP: Ines Reynoso DO Status: REG CLI Study: Transvaginal Non- Date of Exam: 06/09/17 Exam# [id number] Ordering Dr: Inse Reynoso DO STUDY: ULTRASOUND OF THE FEMALE PELVIS - COMPLETE REASON FOR EXAM: Female, 57 years old. Pelvic pain LMP: TECHNIQUE: Transabdominal and Transvaginal TECHNICAL QUALITY: Adequate. COMPARISON: None. FINDINGS: The uterus is anteverted and is in a midline position. The uterus measures 7.4 x 4.3 x 4.1 cm. Normal uterine cervix. The endometrium measures 4 mm in thickness, and is hyperechoic. There is no demonstrated endometrial mass. Uterus is heterogeneous consistent with fibroids, and 2 focal fibroids are seen measuring 2.5 and 1.5 cm. The right ovary is visualized. The right ovary measures 2.8 x 0.9 x 1.7 cm. There is no right ovarian cyst or ovarian mass. There is no visualized right adnexal mass or complex lesion. There is normal arterial and normal venous vascularity. The left ovary is visualized. The left ovary measures 2.1 x 1.7 x 1.8 cm. There is no left ovarian cyst or ovarian mass. There is no visualized left adnexal mass or complex lesion. There is normal arterial and normal venous vascularity. There is no fluid in the cul-de-sac. US/Transvaginal Non- IMPRESSION: Probable diffuse leiomyomatous change of the uterus with 2 focal fibroids measuring 1.5 and 2.5 cm. Electronically Signed: Gne Packer MD at 19:44 EDT , Service support , CC: Ines Reynoso DO Physical Testing Supervisor: Signed Ines Reynoso Work Phone: Start: 11-11-2016 End: 11-11-2016 Echocardiogram Complete Comments: See Note; NOTES: [facility] Cardiovascular Services [address] [place] [address] Echo Complete 11/11/16 1302 MR#: [id number] Acct: [id number] Name: SUSAN BOBBY Rep #: [id number] : 1960 56 From: Vipin Roy MD Attending Dr: Ines Reynoso DO Status: REG CLI Ordering Dr: Ines Reynoso DO Date: 11/11/16 Location: [facility] Sex: F AA Admitted: Reason For Study: SHORTNESS OF BREATH Procedure This was a 2D Doppler, Color Flow transthoracic echocardiogram. Exam performed in department. Left Ventricle Normal LV size. Left ventricular systolic function is normal. The estimated ejection fraction is 60 %. No regional wall motion abnormalities noted. Right Ventricle Normal RV size. Normal systolic function. Atria Normal left atrium. Normal right atrium. Mitral Valve Normal mitral valve. Tricuspid Valve Normal tricuspid valve. Mild tricuspid valve insufficiency. Aortic Valve Normal aortic valve. Trisinus/trileaflet aortic valve. Pulmonic Valve Normal pulmonic valve. Great Vessels Normal aortic root. The pulmonary artery is normal size. Normal inferior vena cava. Pericardium/Pleural No pericardial effusion. MMode/2D Measurements & Calculations LVIDd: 4.6 cm IVSd: 0.81 cm LVOT diam: 2.0 cm LVIDs: 2.9 cm LVPWd: 0.80 cm LVOT area: 3.1 cm2 RVDd: 3.8 cm FS: 37.5 % Ao root diam: 3.0 cm LAV(MOD-bp): 66.0 ml LA A4 area: 22.0 cm2 LA dimension: 4.1 cm LAV(MOD-bp) Indexed: 35.9 ml/m2 LAV(MOD-sp2): 58.0 ml LAV(MOD-sp4): 64.8 ml RA A4 area: 20.9 cm2 Time Measurements MV dec time: 0.20 sec Doppler Measurements & Calculations MV E max eleazar: 91.5 cm/sec Lat Peak E' Eleazar: 12.5 cm/sec Med Peak E' Eleazar: 12.8 cm/sec MV A max eleazar: 62.3 cm/sec E/E' lat: 7.3 E/E' med: 7.2 MV E/A: 1.5 MV V2 max: 92.5 cm/sec MV P1/2t max eleazar: 92.6 cm/sec Ao V2 max: 128.3 cm/sec MV max P.4 mmHg MV P1/2t: 57.6 msec Ao max P.6 mmHg MV dec slope: 470.8 cm/sec2 SHELLIE(V,D): 2.7 cm2 MVA(P1/2t): 3.8 cm2 LV V1 max: 113.0 cm/sec PI end-d eleazar: 67.4 cm/sec TR max eleazar: 148.3 cm/sec LV V1 max P.1 mmHg TR max P.8 mmHg Interpretation Summary Normal LV size. Left ventricular systolic function is normal. The estimated ejection fraction is 60 %. Mild tricuspid valve insufficiency. Ordering Physician: Ines Reynoso Referring Physician: Mariela Estrada Performed By: Jeanne Morales RDCS 11/11/16 1527 Date Vipin Roy MD CC: Ines Reynoso DO Date Dictated: 11/11/16 1302 Date Transcribed: 11/11/16 1527 Physical Testing Supervisor: Signed Ines Reynoso Work Phone: Start: 11-06-2016 End: 11-06-2016 Pulmonary Function Report Comp Comments: See Note; NOTES: [facility] Pulmonary Services/Neurology [address] [place] [address] Pulmonary Function Test (Comp) MR#: [id number] Acct: [id number] Name: SUSAN BOBBY Rep #: [id number] : 1960 56 From: Uli Ward MD Referring Dr: Ines Reynoso DO Status: REG CLI Ordering Dr: Mariela Estrada MD Date: 11/04/16 Location: Sex: F AA DATE OF SERVICE: 11/04/2016 BRIEF HISTORY OF PRESENT ILLNESS: The patient is a 56-year-old -[place] female, currently under the care of Dr. Estrada, who presents for a complete pulmonary function test secondary to a diagnosis of dyspnea at rest. The respiratory therapist reported good patient effort and reproducible results. INTERPRETATION: Forced expiration spirometry demonstrates a mild large airways obstructive ventilatory defect. There is a significant response to bronchodilators noted in FEV1. Spirograms are of good quality and plateau normally. The respiratory flow volume loop appears normal. Lung volumes by body plethysmography show all lung volumes within normal limits. Diffusion capacity by single breath carbon monoxide is moderately reduced at 52% of predicted. Airway resistance is normal. No previous studies are available for comparison. IMPRESSION: Isolated defect in diffusion capacity consistent with a probable pulmonary vascular disorder. Consider echocardiogram if not previously obtained. ULI WARD MD C C: Mariela Estrada MD T: [facility] JOB: [id number] 11/06/16 0616 <Electronically signed by Uli Ward MD> Date Uli Ward MD CC: Uli Ward MD; Mariela Estrada MD; Ines Reynoso DO Date Dictated: 11/05/1648 Date Transcribed: 11/05/16847 Physical Testing Supervisor: Signed Ines Reynoso Start: 11-04-2016 End: 11-04-2016 SCREENING MAMM (CAD), BILAT Comments: See Note; NOTES: [facility] [address] [place] [address] Verda 4d SCREENING MAMM (CAD), BILAT MR#: [id number] Acct: [id number] Name: SUSAN BOBBY Rep #: [id number] : 1960 F 56 From: Deny Hernandez MD PCP: Ines Reynoso DO Status: REG CLI Study: SCREENING MAMM (CAD), BILAT Date of Exam: 11/04/16 Exam# [id number] Ordering Dr: Ines Reynoso DO MAMMOGRAPHY - BILATERAL SCREENING REASON FOR EXAM: Female, 56 years old. Routine annual screening examination. PERTINENT HISTORY: Non-contributory. TECHNIQUE: Digital bilateral breast unique (3D mammographic acquisition) in the CC and MLO projections. 2-D mediolateral oblique (MLO) and craniocaudad (CC) views of both breasts were obtained. CAD: Full Field Digital Mammography with Computer Added Detection was performed. COMPARISON: Comparison is made with prior study dated October 29, 2015 and September 23, 2014. FINDINGS: Breast Composition: There are scattered areas of fibroglandular density. There are no dominant masses or suspicious calcifications. No other significant abnormalities are identified. There has been no significant change since the prior study. HPBI/SCREENING MAMM (CAD), BILAT IMPRESSION: Stable bilateral screening mammogram. Yearly follow-up mammogram recommended. (A) ASSESSMENT CATEGORY: BIRADS Category 1: Negative. A letter regarding these results will be sent to the patient by the facility within 30 days. Approximately 10% of breast cancers are not detected by mammography. A normal mammogram should not delay biopsy of a clinically suspicious abnormality. [id number] Electronically Signed: Deny Hernandez MD at 11:32 EST Tel [phone], Service support [phone], CC: Ines Reynoso DO Physical Testing Supervisor: Signed Ines Reynoso Work Phone: Start: 09-02-2016 End: 09-02-2016 Chest PA and Lateral Comments: See Note; NOTES: [facility] [address] [place] [address] Verdana 4d Chest PA and Lateral MR#: [id number] Acct: [id number] Name: SUSAN BOBBY Rep #: [id number] : 1960 F 56 From: Cain Guadalupe MD PCP: Ines Reynoso DO Status: REG CLI Study: Chest PA and Lateral Date of Exam: 09/02/16 Exam# [id number] Ordering Dr: Ines Reynoso DO STUDY: X-RAY CHEST REASON FOR EXAM: Female, 56 years old. sob while resting TECHNIQUE: Frontal and lateral views of the chest. COMPARISON: None. FINDINGS: The lungs are clear and expanded. There is no demonstrated pleural abnormality. Normal size heart. Normal mediastinum and blanquita. Normal visualized pulmonary arteries. Normal visualized aortic arch and descending thoracic aorta. Normal visualized thoracic spine. Normal visualized ribs, clavicles, and shoulders. There is no demonstrated abnormality of the visualized soft tissue structures of the upper abdomen. RAD/Chest PA and Lateral IMPRESSION: Normal x-ray examination of the chest. Electronically Signed: Cain Guadalupe MD at 23:36 EST , Service support [phone], CC: Ines Reynoso DO Physical Testing Supervisor: Signed Ines Reynoso Work Phone: Start: 10-29-2015 End: 10-30-2015 Bilat Scrn Digital AND CAD Comments: See Note; NOTES: [facility] [address] [place] [address] Verdana 4d Bilat Scrn Digital AND CAD MR#: [id number] Acct: [id number] Name: SUSAN BOBBY Rep #: [id number] : 1960 F 55 From: Deny Hernandez MD PCP: Ines Reynoso DO Status: REG CLI Study: Bilat Scrn Digital AND CAD Date of Exam: 10/29/15 Exam# [id number] Ordering Dr: Ines Reynoso DO MAMMOGRAPHY - BILATERAL SCREENING REASON FOR EXAM: Female, 55 years old. Routine annual screening examination. PERTINENT HISTORY: Non-contributory. TECHNIQUE: Digital examination. Mediolateral oblique (MLO) and craniocaudad (CC) views of both breasts were obtained. CAD: CAD was performed on this study. COMPARISON: Comparison is made with prior study dated September 23, 2014 and July 30, 2013. FINDINGS: Breast Composition: There are scattered areas of fibroglandular density. There are no dominant masses or suspicious calcifications. No other significant abnormalities are identified. There has been no significant change since the prior study. IMPRESSION: Stable bilateral screening mammogram. Yearly follow-up recommended. (A) ASSESSMENT CATEGORY: BIRADS Category 1: Negative. A letter regarding these results will be sent to the patient by the facility within 30 days. Approximately 10% of breast cancers are not detected by mammography. A normal mammogram should not delay biopsy of a clinically suspicious abnormality. [id number] Electronically Signed: Deny Hernandez MD at 8:27 EST Tel [phone], Service support [phone], CC: Ines Reynoso DO Physical Testing Supervisor: Signed Ines Reynoso Work Phone: Start: 10-29-2015 End: 10-29-2015 Dexa Bone Density Study (HP) Comments: See Note; NOTES: [facility] [address] [place] [address] Verdana 4d Dexa Bone Density Study () MR#: [id number] Acct: [id number] Name: SUSAN BOBBY Rep #: [id number] : 1960 F 55 From: Malcom Tovar DO PCP: Ines Reynoso DO Status: REG CLI Study: Dexa Bone Density Study (HP) Date of Exam: 10/29/15 Exam# [id number] Ordering Dr: Ines Reynoso DO STUDY: DUAL ENERGY X-RAY ABSORPTIOMETRY / DXA REASON FOR EXAM: Female, 55 years old. Post menopausal female. Diabetes TECHNIQUE: Bone Mineral Density (BMD) measurements of lumbar spine and bilateral hips were obtained. COMPARISON: July 30, 2013 FINDINGS: Lumbar Spine (L1-L4): g/cm2 (1.042) / T-score (-1.2) / Z-score (-1.1) Findings are suggestive of osteopenia with a moderate fracture risk. Left Femur Total: g/cm2 (0.949) / T-score (-0.5) / Z-score (-0.8) Left Femoral Neck: g/cm2 (0.856) / T-score (-1.3) / Z-score (-1.3) Right Femur Total: g/cm2 (0.889) / T-score (-0.9) / Z-score (-1.3) Right Femoral Neck: g/cm2 (0.765) / T-score (-2.0) / Z-score (-1.9) The T-Scores on the most recent prior examination were: Left Femur Total: 0.1 which represents a worsening of -7.4%. Right Femur Total: -0.4 which represents a worsening of -7.2%. IMPRESSION: The patient is considered osteoporotic as outlined below according to World Tang Organization (WHO) criteria with a high fracture risk. There has been worsening of bone density since the previous examination. Reference Information: The T-score is the number of standard deviations above or below the standard which is normal for young adults at their peak bone mineral density. The World Health Organization (WHO) interprets the T-scores as follows: Above -1 Normal bone density Between -1 and -2.5 Osteopenia Equal to / or below -2.5 Osteoporosis As a practical clinical guideline, osteopenia may be graded as follows: Mild -1 through -1.5 Moderate -1.6 through -2.0 Severe -2.1 through -2.4 The Z-score is the number of standard deviations above or below age-matched controls. A Z-score of less than -1.5 would be considered abnormal. References: 1. NIH Osteoporosis and Related Bone Diseases http://www.osteo.org 2. International Society for Clinical Densitometry http://www.iscd.org 3. National Osteoporosis Foundation http://www.nof.org Electronically Signed: Malcom Tovar DO at 16:09 EST Tel [phone], Service support [phone], CC: Ines Reynoso DO Physical Testing Supervisor: Signed Ines Reynoso Work Phone: Start: 12-01-2014 End: 12-01-2014 Transvaginal Non- Comments: See Note; NOTES: [facility] [address] [place] [address] Ultrasound Report MR#: [id number] Acct: [id number] Name: SUSAN BOBBY Rep #: [id number] : 1960 F 54 From: Martell Cho MD PCP: Ines Reynoso DO Status: REG CLI Study: Transvaginal Non- Date of Exam: 12/01/14 Exam# [id number] Ordering Dr: Ines Reynoso DO STUDY: ULTRASOUND OF THE FEMALE PELVIS - COMPLETE REASON FOR EXAM: Female, 54 years old. LMP: Postmenopausal. Postmenopausal bleeding. TECHNIQUE: Transvaginal TECHNICAL QUALITY: Adequate. COMPARISON: CT abdomen and pelvis 07/22/13 FINDINGS: The uterus is anteverted and is in a midline position. The uterus measures 8.4 x 4.8 x 4.1 cm. Normal uterine cervix. The endometrium measures 4.2 mm in thickness, and is hyperechoic. There is no demonstrated endometrial mass. There is a right posterior fundal myometrial leiomyoma measuring 2.2 x 3.2 x 2.0 cm. The textural pattern of the uterus is nonuniform. I.U.D. - No The right ovary is visualized. The right ovary measures 2.3 x 1.9 x 1.0 cm. There is no right ovarian cyst or ovarian mass. There is no visualized right adnexal mass or complex lesion. There is normal arterial and normal venous vascularity. The left ovary is visualized. The left ovary measures 3.1 x 2.4 x 1.7 cm. Left ovarian simple appearing cyst measuring 1.2 x 1.3 cm. There is no visualized left adnexal mass or complex lesion. There is normal arterial and normal venous vascularity. There is no fluid in the cul-de-sac. IMPRESSION: The uterus demonstrated a non-uniform echogenic pattern with the right posterior myometrial fundal fibroid measuring 2.2 x 3.2 x 2.0 cm. Small left ovarian cyst. Electronically Signed: Martell Cho MD at 21:08 EST , Service support [phone], CC: Ines Reynoso DO Physical Testing Supervisor: Signed Ines Reynoso Work Phone: Start: 12-01-2014 End: 12-01-2014 Pelvic (Non ) Comments: See Note; NOTES: [facility] [address] [place] [address] Ultrasound Report MR#: [id number] Acct: [id number] Name: SUSAN BOBBY Rep #: [id number] : 1960 F 54 From: Martell Cho MD PCP: Ines Reynoso DO Status: REG CLI Study: Pelvic (Non ) Date of Exam: 12/01/14 Exam# [id number] Ordering Dr: Ines Reynoso DO STUDY: ULTRASOUND OF THE FEMALE PELVIS - COMPLETE REASON FOR EXAM: Female, 54 years old. LMP: Postmenopausal. Postmenopausal bleeding. TECHNIQUE: Transvaginal TECHNICAL QUALITY: Adequate. COMPARISON: CT abdomen and pelvis 07/22/13 FINDINGS: The uterus is anteverted and is in a midline position. The uterus measures 8.4 x 4.8 x 4.1 cm. Normal uterine cervix. The endometrium measures 4.2 mm in thickness, and is hyperechoic. There is no demonstrated endometrial mass. There is a right posterior fundal myometrial leiomyoma measuring 2.2 x 3.2 x 2.0 cm. The textural pattern of the uterus is nonuniform. I.U.D. - No The right ovary is visualized. The right ovary measures 2.3 x 1.9 x 1.0 cm. There is no right ovarian cyst or ovarian mass. There is no visualized right adnexal mass or complex lesion. There is normal arterial and normal venous vascularity. The left ovary is visualized. The left ovary measures 3.1 x 2.4 x 1.7 cm. Left ovarian simple appearing cyst measuring 1.2 x 1.3 cm. There is no visualized left adnexal mass or complex lesion. There is normal arterial and normal venous vascularity. There is no fluid in the cul-de-sac. IMPRESSION: The uterus demonstrated a non-uniform echogenic pattern with the right posterior myometrial fundal fibroid measuring 2.2 x 3.2 x 2.0 cm. Small left ovarian cyst. Electronically Signed: Martell Cho MD at 21:08 EST , Service support [phone], CC: Ines Reynoso DO Physical Testing Supervisor: Signed Ines Reynoso Work Phone: Start: 09-23-2014 End: 09-24-2014 Bilat Scrn Digital & CAD Comments: See Note; NOTES: [facility] [address] [place] [address] Breast Imaging Report MR#: [id number] Acct: [id number] Name: SUSAN BOBBY Rep #: [id number] : 1960 F 54 From: Deny Hernandez MD PCP: Ines Reynoso DO Status: PRE CLI Exam# [id number] Ordering Dr: Ines Reynoso DO MAMMOGRAPHY - BILATERAL SCREENING REASON FOR EXAM: Female, 54 years old. Routine annual screening examination. PERTINENT HISTORY: Non-contributory. TECHNIQUE: Digital examination. Mediolateral oblique (MLO) and craniocaudad (CC) views of both breasts were obtained. CAD: CAD was performed on this study. COMPARISON: Comparison is made with prior study dated July 30, 2013 and May 24, 2012. FINDINGS: Breast Composition: There are scattered areas of fibroglandular density. There are no dominant masses or suspicious calcifications. No other significant abnormalities are identified. There has been no significant change since the prior study. IMPRESSION: Stable bilateral screening mammogram. Yearly follow-up recommended. (A) ASSESSMENT CATEGORY: BIRADS Category 2: Benign. A letter regarding these results will be sent to the patient by the facility within 30 days. Approximately 10% of breast cancers are not detected by mammography. A normal mammogram should not delay biopsy of a clinically suspicious abnormality. Electronically Signed: Deny Hernandez MD at 8:07 EST Tel [phone], Service support [phone], CC: Ines Reynoso DO Physical Testing Supervisor: Signed Ines Reynoso Work Phone: Start: 07-30-2013 End: 07-31-2013 Adriana Figueroa Digital & CAD Comments: See Note; NOTES: [facility] [address] [place] [address] Breast Imaging Report MR#: [id number] Acct: [id number] Name: SUSAN BOBBY Rep #: [id number] : 1960 F 53 From: Bharath Ortiz MD PCP: Ines Reynoso DO Status: REG CLI Exam# [id number] Ordering Dr: Ines Reynoso DO MAMMOGRAPHY - BILATERAL SCREENING REASON FOR EXAM: Female, 53 years old. Routine annual screening examination. PERTINENT HISTORY: Non-contributory. TECHNIQUE: Digital examination. Mediolateral oblique (MLO) and craniocaudad (CC) views of both breasts were obtained. CAD: CAD was performed on this study. COMPARISON: 05/24/12 FINDINGS: The breast composition is composed of scattered fibroglandular tissues ranging from 25% to 50% of the breast. There are no dominant masses or suspicious calcifications. No other significant abnormalities are identified. There has been no significant change since the prior study. IMPRESSION: Stable bilateral screening mammogram. Yearly follow-up recommended. (A) ASSESSMENT CATEGORY: BIRADS Category 2: Benign finding(s). A letter regarding these results will be sent to the patient by the facility within 30 days. BR2 Approximately 10% of breast cancers are not detected by mammography. A normal mammogram should not delay biopsy of a clinically suspicious abnormality. Signed: Kervin Ortiz M.D. July 31, 2013 at 9:44:58 AM EDT [phone] Electronically Signed BW/BW If you are the referring physician and would like to consult with the radiologist who provided this interpretation, please contact Kervin Ortiz M.D. at [phone]. If this radiologist is unavailable, you will be directed to another radiologist to assist. If you are a patient with a question regarding this report, please contact your referring physician directly. Professional Interpretation Provided By: [employer], Phone , These documents contain legally protected and confidential health information intended only for the use of the individual or entity named above. If you are not the intended recipient, you are hereby notified that any disclosure, copying, distribution, or other use of these documents is strictly prohibited. If you have received this information in error, please notify the sender immediately and arrange for the return or destruction of these documents. CC: Ines Reynoso DO Physical Testing Supervisor: Signed Ines Reynoso Work Phone: Start: 07-30-2013 End: 08-01-2013 Dexa Bone Density Study (HP) Comments: See Note; NOTES: [facility] [address] [place] [address] Bone Density Report MR#: [id number] Acct: [id number] Name: SUSAN BOBBY Rep #: [id number] : 1960 F 53 From: Deny Hernandez MD PCP: Ines Reynoso DO Status: REG CLI Study: Dexa Bone Density Study (HP) Date of Exam: 07/30/13 Exam# [id number] Ordering Dr: Ines Reynoso DO STUDY: DUAL ENERGY X-RAY ABSORPTIOMETRY / DXA REASON FOR EXAM: Female, 53 years old. The patient is postmenopausal. TECHNIQUE: Bone Mineral Density (BMD) measurements of lumbar spine and bilateral hips were obtained. COMPARISON: None. FINDINGS: Lumbar Spine (L1-L4): g/cm2 (1.028) / T-score (-1.4) / Z-score (-1.6) Findings are suggestive of osteopenia with a moderate fracture risk. Left Femur Total: g/cm2 (1.025) / T-score (0.1) / Z-score (-0.3) Left Femoral Neck: g/cm2 (0.956) / T-score (-0.6) / Z-score (-0.6) Right Femur Total: g/cm2 (0.958) / T-score (-0.4) / Z-score (-0.8) Right Femoral Neck: g/cm2 (0.873) / T-score (-1.2) / Z-score (-1.2) IMPRESSION: The patient is considered osteopenic as outlined below according to World Tang Organization (WHO) criteria with a moderate fracture risk. Reference Information: The T-score is the number of standard deviations above or below the standard which is normal for young adults at their peak bone mineral density. The World Health Organization (WHO) interprets the T-scores as follows: Above -1 Normal bone density Between -1 and -2.5 Osteopenia Equal to / or below -2.5 Osteoporosis As a practical clinical guideline, osteopenia may be graded as follows: Mild -1 through -1.5 Moderate -1.6 through -2.0 Severe -2.1 through -2.4 The Z-score is the number of standard deviations above or below age-matched controls. A Z-score of less than -1.5 would be considered abnormal. References: 1. NIH Osteoporosis and Related Bone Diseases http://www.osteo.org 2. International Society for Clinical Densitometry http://www.iscd.org 3. National Osteoporosis Foundation http://www.nof.org Signed: Deny Hernandez M.D. August 01, 2013 at 12:24:48 PM EDT [phone] Electronically Signed GP/GP If you are the referring physician and would like to consult with the radiologist who provided this interpretation, please contact Deny Hernandez M.D. at [phone]. If this radiologist is unavailable, you will be directed to another radiologist to assist. If you are a patient with a question regarding this report, please contact your referring physician directly. Professional Interpretation Provided By: [employer], Phone , These documents contain legally protected and confidential health information intended only for the use of the individual or entity named above. If you are not the intended recipient, you are hereby notified that any disclosure, copying, distribution, or other use of these documents is strictly prohibited. If you have received this information in error, please notify the sender immediately and arrange for the return or destruction of these documents. CC: Ines Reynoso DO Physical Testing Supervisor: Signed Ines Reynoso Work Phone: section Nicky Meyer Cholecystectomy Nicky Thomas Comment on above: 1983 dilation and curretage Sameera Thomas Other bilateral liga tion and division of fallopian tubes Nicky Thomas Plan of Treatment Date Care Activity Detail Author Start: 2037 RSV Vaccine (1 - 1-dose 75+ series) RSV Vaccine (1 - 1-dose 75+ series) [facility] Start: 01-14-2028 Colonoscopy COLONOSCOPY [facility] Start: 01-14-2028 COLORECTAL CANCER SCREENING COLORECTAL CANCER SCREENING [facility] Start: 01-14-2028 Screening for malignant neoplasm of colon [facility] Start: 04-11-2026 Complete blood count Hemoglobin/Hematocrit [facility] Start: 04-11-2026 Creatinine measurement Serum Creatinine [facility] Start: 04-11-2026 Hepatitis B screening Urine Albumin:Creatinine Ratio [facility] Start: 04-11-2026 Hepatitis B surface antibody level LDL Cholesterol [facility] Start: 03-24-2026 Annual PCP Team Chronic Disease Visit Annual PCP Team Chronic Disease Visit [facility] Start: 03-24-2026 Shingrix Vaccine (2 of 2) Shingrix Vaccine (2 of 2) [facility] Comment on above: Postponed from 03/21/2025 (Declined at t his time) Start: 03-24-2026 Urine microalbumin profile DTaP,Tdap,Td Vaccine (1 - Tdap) [facility] Comment on above: Postponed from 1981 (Declined at t his time) Start: 03-11-2026 BP Controlled (<130/80) BP Controlled (<130/80) [facility] Start: 01-03-2026 Annual PCP Team Chronic Disease Visit Annual PCP Team Chronic Disease Visit [facility] Start: 01-03-2026 BP Controlled (<130/80) BP Controlled (<130/80) [facility] Start: 12-31-2025 Annual PCP Team Chronic Disease Visit Annual PCP Team Chronic Disease Visit [facility] Start: 12-29-2025 Complete blood count Hemoglobin/Hematocrit [facility] Start: 12-29-2025 Creatinine measurement Serum Creatinine [facility] Start: 10-17-2025 Glaucoma screening Dilated Retinal Exam [facility] Start: 10-11-2025 Hemoglobin A1c measurement HbA1C [facility] Start: 09-29-2025 End: 09-29-2025 Patient encounter procedure 09/29/2025 5:00 PM EST [facility] [address] [facility] [place] [address] Jose Bullard [facility] [address] [facility] [place] [address] 6 mo follow up [facility] Comment on above: 6 mo follow up Start: 09-23-2025 Annual PCP Team Chronic Disease Visit Annual PCP Team Chronic Disease Visit [facility] Start: 09-23-2025 Anxiety Screening Anxiety Screening [facility] Start: 09-23-2025 BP Controlled (<130/80) BP Controlled (<130/80) [facility] Start: 09-23-2025 Depression Screening Depression Screening [facility] Start: 09-23-2025 Diabetic foot examination Diabetic Foot Exam [facility] Start: 07-24-2025 End: 07-24-2025 Patient encounter procedure 07/24/2025 11:00 AM EDT Office Visit [facility] [address] [place] [phone] Ernestina Grimaldo MD [address] [id number] HBC-2wk f/u-Mano/EGD [facility] Comment on above: HBC-2wk f/u-Mano/EGD Start: 07-11-2025 End: 06-05-2026 EGD DIAGNOSTIC EGD DIAGNOSTIC Endoscopy Routine Gastroesophageal reflux disease, unspecified whether esophagitis present Hiatal hernia Expected: 07/11/2025, Expires: 06/05/2026 [facility] Comment on above: Expected: 07/11/2025, Expires: Start: 07-04-2025 Subsequent hospital visit by physician 07/04/2025 Hospital Encounter [facility] [address] [place] [address] Ernestina Grimaldo MD [address] [id number] Gastroesophageal reflux disease, unspecified whether esophagitis present [K21.9], Hiatal hernia [K44.9], Esophageal dysphagia [R13.19], Type 2 diabetes mellitus with other specified complication, without long-term current use of insulin (HCC) [E11.69], Hypertension, unspecified type [I10], Hyperlipidemia, unspecified hyperlipidemia type [E78.5], Osteopenia, unspecified location [M85.80], Class 1 obesity with serious comorbidity and body mass index (BMI) of 31.0 to 31.9 in adult, unspecified obesity type [E66.811, Z68.31] [facility] Comment on above: Gastroesophageal reflux disease, unspeci fied whether esophagitis present [K21.9], Hiatal hernia [K44.9], Esophageal dysphagia [R13.19], Type 2 diabetes mellitus with other specified complication, without long-term current use of insulin (HCC) [E11.69], Hypertension, unspecified type [I10], Hyperlipidemia, unspecified hyperlipidemia type [E78.5], Osteopenia, unspecified location [M85.80], Class 1 obesity with serious comorbidity and body mass index (BMI) of 31.0 to 31.9 in adult, unspecified obesity type [E66.811, Z68.31] Start: 06-26-2025 BP Controlled (<130/80) BP Controlled (<130/80) [facility] Start: 06-23-2025 Influenza [facility] Start: 06-17-2025 End: 06-17-2025 Patient encounter procedure 06/17/2025 4:00 PM EDT Appointment Mammogram [address] [place], [place] [address] Encounter for screening mammogram for breast cancer [Z12.31] Mammogram Comment on above: Encounter for screening mammogram for br east cancer [Z12.31] Start: 06-11-2025 Screening for malignant neoplasm of breast Mammogram Screening [facility] Start: 06-05-2025 End: 06-05-2025 Patient encounter procedure [facility] Comment on above: Gastroesophageal reflux disease, unspeci fied whether esophagitis present [K21.9]; Hiatal hernia [K44.9] new pt-Gastroesophag eal reflux disease, unspecified whether esophagitis present & Hiatal hernia Start: 06-05-2025 Annual PCP Team Chronic Disease Visit Annual PCP Team Chronic Disease Visit [facility] Start: 06-05-2025 BP Controlled (<130/80) BP Controlled (<130/80) [facility] Start: 05-12-2025 End: 04-23-2026 DBT Breast - bilateral screening WENDY SCREENING W UNIQUE Radiology Routine Encounter for screening mammogram for breast cancer Expected: 05/12/2025, Expires: 04/23/2026 [facility] Comment on above: Expected: 05/12/2025, Expires: Start: 04-21-2025 End: 04-21-2025 Patient encounter procedure 04/21/2025 3:30 PM EDT Office Visit Podiatry [address] [place] [phone] [place] [address] [place] [phone] [place] [L84] Podiatry Comment on above: Callus [L84] Start: 04-09-2025 End: 04-09-2025 Patient encounter procedure 04/09/2025 9:00 AM EDT Appointment [facility] [address] [place] [id number] Gastroesophageal reflux disease, unspecified whether esophagitis present [K21.9] [facility] Comment on above: Gastroesophageal reflux disease, unspeci fied whether esophagitis present [K21.9] Start: 03-31-2025 Hemoglobin A1c measurement HbA1C [facility] Start: 03-24-2025 End: 03-24-2025 Patient encounter procedure 03/24/2025 5:00 PM EDT Office Visit Family [facility] [address] [place] [phone] Jose Bullard MD [address] [place] [phone] follow up 6 months Family [facility] Comment on above: follow up 6 months Start: 03-24-2025 End: 06-23-2025 CBC W Auto Differential panel - Blood COMPLETE BLOOD COUNT AND DIFFERENTIAL Lab Routine Controlled type 2 diabetes mellitus without complication, unspecified whether parts counterman insulin use (HCC) Expected: 03/24/2025, Expires: 06/23/2025 [facility] Comment on above: Expected: 03/24/2025, Expires: Start: 03-24-2025 End: 06-23-2025 Comprehensive metabolic 2000 panel - Serum or Plasma COMPREHENSIVE METABOLIC PANEL Lab Routine Stage 3 chronic kidney disease, unspecified whether stage 3a or 3b CKD (HCC) Controlled type 2 diabetes mellitus without complication, unspecified whether parts counterman insulin use (HCC) Expected: 03/24/2025, Expires: 06/23/2025 [facility] Comment on above: Expected: 03/24/2025, Expires: Start: 03-24-2025 End: 06-23-2025 Hemoglobin A1c in Blood HEMOGLOBIN A1C Lab Routine Controlled type 2 diabetes mellitus without complication, unspecified whether parts counterman insulin use (HCC) Expected: 03/24/2025, Expires: 06/23/2025 [facility] Comment on above: Expected: 03/24/2025, Expires: Start: 03-24-2025 End: 06-23-2025 Lipid 1996 panel - Serum or Plasma LIPID PANEL, FASTING Lab Routine Hyperlipidemia, mixed Expected: 03/24/2025, Expires: 06/23/2025 [facility] Comment on above: Expected: 03/24/2025, Expires: Start: 03-24-2025 End: 06-23-2025 Microalbumin/Creatinine [Mass Ratio] in Urine ALBUMIN/CREATININE RATIO, URINE Lab Routine Controlled type 2 diabetes mellitus without complication, unspecified whether parts counterman insulin use (HCC) Expected: 03/24/2025, Expires: 06/23/2025 [facility] Work Phone: Comment on above: Expected: 03/24/2025, Expires: Start: 03-22-2025 Annual PCP Team Chronic Disease Visit Annual PCP Team Chronic Disease Visit [facility] Start: 03-22-2025 Creatinine measurement Serum Creatinine [facility] Start: 03-22-2025 Hepatitis B screening Urine Albumin:Creatinine Ratio [facility] Start: 03-22-2025 Hepatitis B surface antibody level LDL Cholesterol [facility] Start: 03-22-2025 Screening for malignant neoplasm of cervix HPV Testing [facility] Comment on above: Postponed from 01/07/1992 (Postponed To Appropriate Date) Start: 03-21-2025 Shingrix Vaccine (2 of 2) Shingrix Vaccine (2 of 2) [facility] Start: 03-11-2025 End: 03-11-2025 Patient encounter procedure 03/11/2025 2:15 PM EDT Office Visit Gastroenterology [facility] [address] [facility] [place] [phone] Kyle Alexandra APRN.[employer] [address] [place] [address] Cyclical vomiting syndrome not associated with migraine [R11.15] [facility] Comment on above: Cyclical vomiting syndrome not associate d with migraine [R11.15] Start: 01-03-2025 End: 01-03-2025 Patient encounter procedure 01/03/2025 2:20 PM EDT Office Visit Family [facility] [place] [address] [place] [address] Jose Bullard MD [address] [place], [place] [phone] [facility] ER follow up lower back pain Family [facility] Comment on above: [facility] ER follow up lower back pain Start: 12-31-2024 [facility] Start: 12-31-2024 [facility] Start: 12-31-2024 [facility] Start: 12-30-2024 [facility] Start: 11-17-2024 Covid-19 Vaccine ( season) Covid-19 Vaccine ( season) [facility] Comment on above: Postponed from 06/23/2023 (Declined at t his time) Start: 11-17-2024 Creatinine measurement Serum Creatinine [facility] Start: 11-17-2024 Pneumococcal vaccination Pneumococcal Vaccine (1 of 2 - PCV) [facility] Comment on above: Postponed from 01/07/1968 (Declined at t his time) Start: 11-17-2024 RSV Vaccine (1 - 1-dose 60+ series) RSV Vaccine (1 - 1-dose 60+ series) [facility] Comment on above: Postponed from 2022 (Declined at t his time) Start: 11-17-2024 Shingrix Vaccine (1 of 2) Shingrix Vaccine (1 of 2) [facility] Comment on above: Postponed from 01/07/2012 (Declined at t his time) Start: 11-17-2024 Urine microalbumin profile DTaP,Tdap,Td Vaccine (1 - Tdap) [facility] Comment on above: Postponed from 1981 (Declined at t his time) Start: 10-22-2024 Behavioral Health Screening Behavioral Health Screening [facility] Comment on above: Postponed from 10/23/2023 (Declined at t his time) Start: 09-23-2024 End: 09-23-2024 Patient encounter procedure 09/23/2024 5:00 PM EST Office Visit Family [facility] Bo [address] [place] [address] Jose Bullard MD [address] [place] [address] 6 month follow up Family [facility] Comment on above: 6 month follow up Start: 09-23-2024 End: 12-23-2024 Basic metabolic 2000 panel - Serum or Plasma BASIC METABOLIC PANEL Lab Routine Stage 3 chronic kidney disease, unspecified whether stage 3a or 3b CKD (HCC) Expected: 09/23/2024, Expires: 12/23/2024 [facility] Comment on above: Expected: 09/23/2024, Expires: Start: 09-23-2024 End: 12-23-2024 Cobalamin (Vitamin B12) [Mass/volume] in Serum or Plasma VITAMIN B12 Lab Routine Medication monitoring encounter Expected: 09/23/2024, Expires: 12/23/2024 [facility] Comment on above: Expected: 09/23/2024, Expires: Start: 09-23-2024 End: 12-23-2024 Hemoglobin A1c in Blood HEMOGLOBIN A1C Lab Routine Controlled type 2 diabetes mellitus without complication, unspecified whether half-way insulin use (HCC) Expected: 09/23/2024, Expires: 12/23/2024 [facility] Work Phone: Comment on above: Expected: 09/23/2024, Expires: Start: 09-23-2024 End: 12-23-2024 Magnesium [Mass/volume] in Serum or Plasma MAGNESIUM Lab Routine Medication monitoring encounter Expected: 09/23/2024, Expires: 12/23/2024 [facility] Comment on above: Expected: 09/23/2024, Expires: Start: 09-21-2024 Hemoglobin A1c measurement HbA1C [facility] Start: 09-05-2024 BP Controlled (<130/80) BP Controlled (<130/80) [facility] Start: 08-07-2024 End: 08-07-2024 Patient encounter procedure [facility] Comment on above: egd Start: 06-26-2024 End: 06-26-2024 Patient encounter procedure 06/26/2024 3:30 PM EDT Office Visit General [facility] [address] [facility] [address] [place], [place] [address] Kip Zhang, DO [address], [place] [phone] Gastritis with hemorrhage, unspecified chronicity, unspecified gastritis type [K. General Surgery Comment on above: Gastritis with hemorrhage, unspecified c hronicity, unspecified gastritis type [K. Start: 06-23-2024 Covid-19 Vaccine ( season) Covid-19 Vaccine ( season) [facility] Start: 06-23-2024 Covid-19 Vaccine ( season) Covid-19 Vaccine ( season) [facility] Start: 06-23-2024 Influenza vaccination Influenza Vaccine (#1) [facility] Start: 06-11-2024 End: 06-11-2024 Patient encounter procedure 06/11/2024 3:40 PM EDT Appointment Mammogram [address] [facility] [address] [place] [phone] screening Mammogram Comment on above: screening Start: 06-09-2024 Mammography [facility] Start: 06-09-2024 Screening for malignant neoplasm of breast Mammogram Screening [facility] Start: 05-17-2024 Hemoglobin A1c measurement HbA1C [facility] Start: 05-15-2024 3 comp foot exam completed DIABETIC FOOT EXAM [facility] Start: 05-15-2024 ANNUAL PCP TEAM CHRONIC DISEASE VISIT ANNUAL PCP TEAM CHRONIC DISEASE VISIT [facility] Start: 05-15-2024 BP CONTROLLED (<130/80) BP CONTROLLED (<130/80) [facility] Start: 05-15-2024 Diabetic foot examination Diabetic Foot Exam [facility] Start: 05-13-2024 Complete blood count Hemoglobin/Hematocrit [facility] Start: 05-13-2024 HEMOGLOBIN/HEMATOCRIT HEMOGLOBIN/HEMATOCRIT [facility] Start: 05-13-2024 Hepatitis B screening URINE ALBUMIN:CREATININE RATIO [facility] Start: 05-13-2024 Hepatitis B surface antibody level LDL CHOLESTEROL [facility] Start: 05-13-2024 SERUM CREATININE SERUM CREATININE [facility] Start: 04-12-2024 End: 04-12-2024 Patient encounter procedure 04/12/2024 3:25 PM EDT Appointment Radiology [address] [place] [address] Osteopenia, unspecified location [M85.80]; Asymptomatic postmenopausal status [Z78.0] Radiology Comment on above: Osteopenia, unspecified location [M85.80 ]; Asymptomatic postmenopausal status [Z78.0] Start: 03-22-2024 End: 06-21-2024 CBC W Auto Differential panel - Blood [facility] Comment on above: Expected: 03/22/2024, Expires: 4 Start: 03-22-2024 End: 06-21-2024 Comprehensive metabolic 2000 panel - Serum or Plasma [facility] Comment on above: Expected: 03/22/2024, Expires: Start: 03-22-2024 End: 06-21-2024 Hemoglobin A1c in Blood [facility] Comment on above: Expected: 03/22/2024, Expires: Start: 03-22-2024 End: 08-30-2024 Lipid 1996 panel - Serum or Plasma [facility] Comment on above: Expected: 03/22/2024, Expires: 4 Start: 03-22-2024 End: 06-21-2024 Microalbumin/Creatinine [Mass Ratio] in Urine [facility] Comment on above: Expected: 03/22/2024, Expires: 4 Start: 11-15-2023 ANNUAL PCP TEAM CHRONIC DISEASE VISIT ANNUAL PCP TEAM CHRONIC DISEASE VISIT [facility] Start: 11-13-2023 Hemoglobin A1c/Hemoglobin.total in Blood HBA1C [facility] Start: 06-23-2023 Covid-19 Vaccine () Covid-19 Vaccine () [facility] Start: 06-23-2023 Influenza vaccination [facility] Start: 05-31-2023 BP CONTROLLED (<130/80) BP CONTROLLED (<130/80) [facility] Start: 05-13-2023 3 comp foot exam completed DIABETIC FOOT EXAM [facility] Start: 05-13-2023 ANNUAL PCP TEAM CHRONIC DISEASE VISIT ANNUAL PCP TEAM CHRONIC DISEASE VISIT [facility] Start: 05-13-2023 PNEUMOCOCCAL (1 - PCV) PNEUMOCOCCAL (1 - PCV) [facility] Comment on above: Postponed from 01/07/1968 (Declined at t his time) Start: 05-13-2023 SHINGRIX VACCINE (1 of 2) SHINGRIX VACCINE (1 of 2) [facility] Comment on above: Postponed from 01/07/2012 (Declined at t his time) Start: 05-13-2023 Urine microalbumin profile DTAP,TDAP,TD (1 - Tdap) [facility] Comment on above: Postponed from 1981 (Declined at t his time) Start: 05-10-2023 End: 07-10-2023 ALBUMIN/CREAT RATIO RND UR ALBUMIN/CREAT RATIO RND UR Lab Routine Stage 3 chronic kidney disease, unspecified whether stage 3a or 3b CKD (HCC) Controlled type 2 diabetes mellitus without complication, unspecified whether half-way insulin use (HCC) Expected: 05/10/2023, Expires: 07/10/2023 [facility] Work Phone: Comment on above: Expected: 05/10/2023, Expires: 3 Start: 05-10-2023 End: 07-10-2023 CBC W Auto Differential panel - Blood CBC + DIFF Lab Routine Stage 3 chronic kidney disease, unspecified whether stage 3a or 3b CKD (HCC) Controlled type 2 diabetes mellitus without complication, unspecified whether half-way insulin use (HCC) Expected: 05/10/2023, Expires: 07/10/2023 [facility] Work Phone: Comment on above: Expected: 05/10/2023, Expires: Start: 05-10-2023 End: 07-10-2023 Comprehensive metabolic 2000 panel - Serum or Plasma COMP METABOLIC PANEL Lab Routine Stage 3 chronic kidney disease, unspecified whether stage 3a or 3b CKD (HCC) Controlled type 2 diabetes mellitus without complication, unspecified whether half-way insulin use (HCC) Expected: 05/10/2023, Expires: 07/10/2023 [facility] Work Phone: Comment on above: Expected: 05/10/2023, Expires: 3 Start: 05-10-2023 End: 07-10-2023 Hemoglobin A1c in Blood HGB A1C Lab Routine Stage 3 chronic kidney disease, unspecified whether stage 3a or 3b CKD (HCC) Controlled type 2 diabetes mellitus without complication, unspecified whether half-way insulin use (HCC) Expected: 05/10/2023, Expires: 07/10/2023 [facility] Work Phone: Comment on above: Expected: 05/10/2023, Expires: Start: 05-10-2023 End: 07-10-2023 Lipid 1996 panel - Serum or Plasma LIPID PANEL BASIC Lab Routine Stage 3 chronic kidney disease, unspecified whether stage 3a or 3b CKD (HCC) Controlled type 2 diabetes mellitus without complication, unspecified whether half-way insulin use (HCC) Expected: 05/10/2023, Expires: 07/10/2023 [facility] Work Phone: Comment on above: Expected: 05/10/2023, Expires: Start: 05-06-2023 BP CONTROLLED (<130/80) [facility] Start: 04-30-2023 HEMOGLOBIN/HEMATOCRIT HEMOGLOBIN/HEMATOCRIT [facility] Start: 04-30-2023 Hepatitis B screening URINE ALBUMIN:CREATININE RATIO [facility] Start: 04-30-2023 Hepatitis B surface antibody level LDL CHOLESTEROL [facility] Start: 04-30-2023 SERUM CREATININE SERUM CREATININE [facility] Start: 04-29-2023 Adult depression screening assessment DEPRESSION SCREENING [facility] Start: 04-29-2023 ANNUAL PCP TEAM CHRONIC DISEASE VISIT ANNUAL PCP TEAM CHRONIC DISEASE VISIT [facility] Start: 04-29-2023 Mammography MAMMOGRAM [facility] Start: 12-07-2022 Glaucoma screening Dilated Retinal Exam [facility] Start: 12-07-2022 Hepatitis C antibody, confirmatory test DILATED RETINAL EXAM [facility] Start: 11-13-2022 End: 01-13-2023 Basic metabolic 2000 panel - Serum or Plasma BASIC METABOLIC PNL Lab Routine Hypertension, essential Expected: 11/13/2022, Expires: 01/13/2023 [facility] Work Phone: Comment on above: Expected: 11/13/2022, Expires: 3 Start: 11-13-2022 End: 01-13-2023 Hemoglobin A1c in Blood HGB A1C Lab Routine Hypertension, essential Expected: 11/13/2022, Expires: 01/13/2023 [facility] Work Phone: Comment on above: Expected: 11/13/2022, Expires: 3 Start: 11-13-2022 End: 01-13-2023 Urinalysis complete panel - Urine URINALYSIS, WITH MICROSCOPIC Lab Routine Stage 3 chronic kidney disease, unspecified whether stage 3a or 3b CKD (HCC) Expected: 11/13/2022, Expires: 01/13/2023 [facility] Work Phone: Comment on above: Expected: 11/13/2022, Expires: 3 Start: 10-31-2022 Hemoglobin A1c/Hemoglobin.total in Blood HBA1C [facility] Start: 06-23-2022 Influenza vaccination INFLUENZA (#1) [facility] Start: 06-11-2022 COLORECTAL CANCER SCREENING COLORECTAL CANCER SCREENING [facility] Start: 06-11-2022 FECAL OCCULT BLOOD FECAL OCCULT BLOOD [facility] Start: 06-11-2022 Screening for malignant neoplasm of colon Fecal Occult Blood [facility] Start: 05-31-2022 Hepatitis B surface antibody level LDL CHOLESTEROL [facility] Start: 04-29-2022 End: 06-29-2022 ALBUMIN/CREAT RATIO RND UR ALBUMIN/CREAT RATIO RND UR Lab Routine Controlled type 2 diabetes mellitus without complication, unspecified whether parts counterman insulin use (HCC) Expected: 04/29/2022, Expires: 06/29/2022 [facility] Work Phone: Comment on above: Expected: 04/29/2022, Expires: 2 Start: 04-29-2022 End: 04-29-2023 CBC W Auto Differential panel - Blood CBC + DIFF Lab Routine Controlled type 2 diabetes mellitus without complication, unspecified whether half-way insulin use (HCC) Expected: 04/29/2022, Expires: 04/29/2023 [facility] Work Phone: Comment on above: Expected: 04/29/2022, Expires: 3 Start: 04-29-2022 End: 04-29-2023 Comprehensive metabolic 2000 panel - Serum or Plasma COMP METABOLIC PANEL Lab Routine Controlled type 2 diabetes mellitus without complication, unspecified whether parts counterman insulin use (HCC) Expected: 04/29/2022, Expires: 04/29/2023 [facility] Work Phone: Comment on above: Expected: 04/29/2022, Expires: 3 Start: 04-29-2022 End: 06-29-2022 Hemoglobin A1c in Blood HGB A1C Lab Routine Controlled type 2 diabetes mellitus without complication, unspecified whether parts counterman insulin use (HCC) Expected: 04/29/2022, Expires: 06/29/2022 [facility] Work Phone: Comment on above: Expected: 04/29/2022, Expires: 2 Start: 04-29-2022 End: 06-29-2022 Hepatitis C virus Ab [Presence] in Serum HEP C AB IA W/CONF SCRN Lab Routine Need for hepatitis C screening test Expected: 04/29/2022, Expires: 06/29/2022 [facility] Work Phone: Comment on above: Expected: 04/29/2022, Expires: 2 Start: 04-29-2022 End: 06-29-2022 HIV 1+2 Ab [Presence] in Serum or Plasma by Immunoassay HIV 1 2 COMBO(AG/AB),WITH REFLEX TO DIFFERENTIATION Lab Routine Screening for HIV (human immunodeficiency virus) Expected: 04/29/2022, Expires: 06/29/2022 [facility] Work Phone: Comment on above: Expected: 04/29/2022, Expires: 2 Start: 04-29-2022 End: 04-29-2023 Lipid 1996 panel - Serum or Plasma LIPID PANEL BASIC Lab Routine Controlled type 2 diabetes mellitus without complication, unspecified whether half-way insulin use (HCC) Expected: 04/29/2022, Expires: 04/29/2023 [facility] Work Phone: Comment on above: Expected: 04/29/2022, Expires: 3 Start: 02-10-2022 COVID-19 VACCINE (4 - Booster for Moderna series) COVID-19 VACCINE (4 - Booster for Moderna series) [facility] Start: 2022 Hepatitis B Vaccine (1 of 3 - Risk 3-dose series) Hepatitis B Vaccine (1 of 3 - Risk 3-dose series) [facility] Start: 2022 RSV Vaccine (1 - 1-dose 60+ series) RSV Vaccine (1 - 1-dose 60+ series) [facility] Start: 12-07-2021 COVID-19 VACCINE (4 - Booster for Moderna series) COVID-19 VACCINE (4 - Booster for Moderna series) [facility] Start: 12-01-2021 Hemoglobin A1c/Hemoglobin.total in Blood HBA1C [facility] Start: 11-30-2021 3 comp foot exam completed DIABETIC FOOT EXAM [facility] Start: 10-23-2021 DEPRESSION ASSESSMENT DEPRESSION ASSESSMENT [facility] Start: 05-30-2021 Hepatitis B screening URINE ALBUMIN:CREATININE RATIO [facility] Start: 09-08-2017 Urnls dip stick/tablet reagent auto microscopy URINALYSIS, W/ MICRO (28866) [facility] Work Phone: Start: 09-08-2017 Blood count complete auto&auto difrntl wbc CBC with auto diff (44399) [facility] Work Phone: Start: 09-08-2017 Hemoglobin A1c/Hemoglobin.total mass fraction (Bld) HGB A1C (77757) [facility] Work Phone: Start: 09-08-2017 Comprehensive metabolic panel METABOLIC PANEL, COMPREHENSIVE (11876) [facility] Work Phone: Start: 09-08-2017 Urine albumin quantitative MICROALBUMIN: CREATININE RATIO (89410) AND (19241) [facility] Work Phone: Start: 09-08-2017 Lipid panel LIPID PANEL (80948) [facility] Work Phone: Start: 09-08-2017 Hepatitis c antibody HEPATITIS C ANTIBODY (41057) [facility] Work Phone: Start: 05-22-2017 Blood count complete auto&auto difrntl wbc CBC W/AUTO DIFF WBC (22957) [facility] Work Phone: Start: 05-22-2017 Comprehensive metabolic panel METABOLIC PANEL, COMPREHENSIVE (33540) [facility] Work Phone: Start: 10-28-2016 Hemoglobin A1c/Hemoglobin.total mass fraction (Bld) HGB A1C (38099) [facility] Work Phone: Start: 10-28-2016 Urine albumin quantitative MICROALBUMIN: CREATININE RATIO (46567) AND (51765) [facility] Work Phone: Start: 10-28-2016 Lipid panel LIPID PANEL (79253) [facility] Work Phone: Start: 09-02-2016 Cytp cerv/vag auto thin layer prep mnl screen Thin prep Pap (43130) (no STD testing) [facility] Work Phone: Start: 04-22-2016 Thyrotropin Qn TSH (67497) [facility] Work Phone: Start: 04-22-2016 Blood count complete automated CBC (AUTO) (63299) [facility] Work Phone: Start: 04-22-2016 25 hydroxy includes fractions if performed Vitamin D Hydroxy (16361) [facility] Work Phone: Start: 04-22-2016 Hemoglobin A1c/Hemoglobin.total mass fraction (Bld) HGB A1C (50213) [facility] Work Phone: Start: 04-22-2016 Comprehensive metabolic panel METABOLIC PANEL, COMPREHENSIVE (07625) [facility] Work Phone: Start: 04-22-2016 Lipid panel LIPID PANEL (10357) [facility] Work Phone: Start: 12-22-2015 Hemoglobin A1c/Hemoglobin.total mass fraction (Bld) Hemoglobin Glyclated (HGB A1C) (87743) [facility] Work Phone: Start: 12-22-2015 Blood count complete auto&auto difrntl wbc CBC W/AUTO DIFF WBC (49196) [facility] Work Phone: Start: 12-22-2015 Comprehensive metabolic panel METABOLIC PANEL, COMPREHENSIVE (34826) [facility] Work Phone: Start: 09-09-2015 25 hydroxy includes fractions if performed Vitamin D Hydroxy (46466) [facility] Work Phone: Start: 09-09-2015 Assay of ferritin FERRITIN (36485) [facility] Work Phone: Start: 09-09-2015 Iron mass conc IRON (92621) [facility] Work Phone: Start: 09-09-2015 Cobalamin (Vitamin B12) mass conc VITAMIN B-12 (CYANOCOBALAMIN) (26281) [facility] Work Phone: Start: 09-09-2015 Nuclear Ab IF titer (S) MERA (ANTINUCLEAR ANTIBODY) (41391) [facility] Work Phone: Start: 09-09-2015 Rheumatoid factor quantitative RHEUMATOID FACTOR-QUANT (43243) [facility] Work Phone: Start: 09-09-2015 CRP mass conc C-REACTIVE PROTEIN (31485) [facility] Work Phone: Start: 09-09-2015 Sedimentation rate rbc non-automated SED RATE ERYTHROCYTE (23709) [facility] Work Phone: Start: 09-09-2015 T3 free mass conc T3, FREE (TRIDOTHYRONINE) (29150) [facility] Work Phone: Start: 09-09-2015 T4 free mass conc T4, FREE (THYROXINE) (93847) [facility] Work Phone: Start: 09-09-2015 Thyrotropin Qn TSH (41691) [facility] Work Phone: Start: 05-11-2015 Lipid panel LIPID PANEL (53344) [facility] Work Phone: Start: 05-11-2015 Hemoglobin A1c/Hemoglobin.total mass fraction (Bld) Hemoglobin Glyclated (HGB A1C) (79221) [facility] Work Phone: Start: 05-11-2015 Comprehensive metabolic panel METABOLIC PANEL, COMPREHENSIVE (57243) [facility] Work Phone: Start: 12-29-2014 25 hydroxy includes fractions if performed Vitamin D Hydroxy (74742) [facility] Work Phone: Start: 12-29-2014 Hemoglobin A1c/Hemoglobin.total mass fraction (Bld) Hemoglobin Glyclated (HGB A1C) (76077) [facility] Work Phone: Start: 12-29-2014 Comprehensive metabolic panel METABOLIC PANEL, COMPREHENSIVE (57563) [facility] Work Phone: Start: 12-29-2014 Lipid panel LIPID PANEL (25213) [facility] Work Phone: Start: 02-12-2014 Lipid panel LIPID PANEL (55985) [facility] Work Phone: Start: 02-12-2014 Comprehensive metabolic panel METABOLIC PANEL, COMPREHENSIVE (44864) [facility] Work Phone: Start: 07-08-2013 Lipid panel LIPID PANEL (31157) [facility] Work Phone: Start: 07-08-2013 Urine albumin quantitative MICROALBUMIN: CREATININE RATIO (70260) AND (20468) [facility] Work Phone: Start: 07-08-2013 Blood count manual cell count each CBC WITH MANUAL DIFF (51105) [facility] Work Phone: Start: 07-08-2013 Comprehensive metabolic panel METABOLIC PANEL, COMPREHENSIVE (97248) [facility] Work Phone: Start: 10-05-2012 Lipid panel LIPID PANEL (63363) [facility] Work Phone: Start: 10-05-2012 Comprehensive metabolic panel METABOLIC PANEL, COMPREHENSIVE (36189) [facility] Work Phone: Start: 10-05-2012 Blood count manual cell count each CBC WITH MANUAL DIFF (90126) [facility] Work Phone: Start: 10-05-2012 Urine albumin quantitative MICROALBUMIN: CREATININE RATIO (49276) AND (50384) [facility] Work Phone: Start: 07-03-2012 Protein electrophoretic fractj&quantj serum Urine Protein Electrophoresis (UPEP) (51368) [facility] Work Phone: Start: 07-03-2012 Protein mass conc Serum Protein Electrophoresis (SPEP) (26154) [facility] Work Phone: Start: 03-26-2012 Lipid panel LIPID PANEL (10025) [facility] Work Phone: Start: 03-26-2012 Urine albumin quantitative MICROALBUMIN: CREATININE RATIO (17584) AND (13678) [facility] Work Phone: Start: 03-26-2012 Blood count manual cell count each CBC WITH MANUAL DIFF (91949) [facility] Work Phone: Start: 03-26-2012 Comprehensive metabolic panel METABOLIC PANEL, COMPREHENSIVE (50049) [facility] Work Phone: Start: 01-07-2012 SHINGRIX VACCINE (1 of 2) SHINGRIX VACCINE (1 of 2) [facility] Start: 10-26-2011 Lipid panel LIPID PANEL (48452) [facility] Work Phone: Start: 10-26-2011 Blood count manual cell count each CBC WITH MANUAL DIFF (23274) [facility] Work Phone: Start: 10-26-2011 Comprehensive metabolic panel METABOLIC PANEL, COMPREHENSIVE (59173) [facility] Work Phone: Start: 06-29-2011 Lipid panel LIPID PANEL (25996) [facility] Work Phone: Start: 06-29-2011 Urine albumin quantitative MICROALBUMIN: CREATININE RATIO (53173) AND (92536) [facility] Work Phone: Start: 02-08-2011 Blood count manual cell count each CBC WITH MANUAL DIFF (33175) [facility] Work Phone: Start: 02-08-2011 Urine albumin quantitative MICROALBUMIN: CREATININE RATIO (49088) AND (01724) [facility] Work Phone: Start: 02-08-2011 Comprehensive metabolic panel METABOLIC PANEL, COMPREHENSIVE (10960) [facility] Work Phone: Start: 02-08-2011 Lipid panel LIPID PANEL (34071) [facility] Work Phone: Start: 10-25-2010 Comprehensive metabolic panel METABOLIC PANEL, COMPREHENSIVE (15365) [facility] Work Phone: Start: 10-25-2010 Lipid panel LIPID PANEL (78382) [facility] Work Phone: Start: 07-26-2010 Lipid panel LIPID PANEL (60066) [facility] Work Phone: Start: 07-26-2010 Comprehensive metabolic panel METABOLIC PANEL, COMPREHENSIVE (14249) [facility] Work Phone: Start: 07-26-2010 Hemoglobin A1c/Hemoglobin.total mass fraction (Bld) HgA1C , Office (50026) [facility] Work Phone: Start: 04-13-2010 Urine albumin quantitative MICROALBUMIN: CREATININE RATIO (18692) AND (40521) [facility] Work Phone: Start: 04-13-2010 Comprehensive metabolic panel METABOLIC PANEL, COMPREHENSIVE (42995) [facility] Work Phone: Start: 04-13-2010 Hepatic function panel HEPATIC FUNCTION PANEL (98515) [facility] Work Phone: Start: 04-13-2010 Lipid panel LIPID PANEL (81092) [facility] Work Phone: Start: 11-09-2009 Protein electrophoretic fractj&quantj serum Urine Protein Electrophoresis (UPEP) (27871) [facility] Work Phone: Start: 11-09-2009 Protein mass conc Serum Protein Electrophoresis (SPEP) (72444) [facility] Work Phone: Start: 11-09-2009 Lipid panel LIPID PANEL (45112) [facility] Work Phone: Start: 11-09-2009 Blood count manual cell count each CBC WITH MANUAL DIFF (38436) [facility] Work Phone: Start: 11-09-2009 Comprehensive metabolic panel METABOLIC PANEL, COMPREHENSIVE (67979) [facility] Work Phone: Start: 05-04-2009 Lipid panel LIPID PANEL (75112) [facility] Work Phone: Start: 05-04-2009 Comprehensive metabolic panel METABOLIC PANEL, COMPREHENSIVE (81778) [facility] Work Phone: Start: 05-04-2009 Urine albumin quantitative MICROALBUMIN: CREATININE RATIO (35589) AND (32154) [facility] Work Phone: Start: 12-08-2008 Urine albumin quantitative MICROALBUMIN: CREATININE RATIO (95371) AND (57746) [facility] Work Phone: Start: 12-08-2008 Comprehensive metabolic panel METABOLIC PANEL, COMPREHENSIVE (98968) [facility] Work Phone: Start: 12-08-2008 Lipid panel LIPID PANEL (00224) [facility] Work Phone: Start: 08-11-2008 Blood count manual cell count each CBC WITH MANUAL DIFF (48349) [facility] Work Phone: Start: 08-11-2008 Comprehensive metabolic panel METABOLIC PANEL, COMPREHENSIVE (84655) [facility] Work Phone: Start: 08-11-2008 Lipid panel LIPID PANEL (93582) [facility] Work Phone: Start: 05-06-2008 Cytp cerv/vag auto thin layer prep mnl screen Thin prep Pap (46475) [facility] Work Phone: Start: 02-12-2007 Urnls dip stick/tablet rgnt auto w/o microscopy URINALYSIS W/O MICRO (75358) [facility] Work Phone: Start: 02-12-2007 Comprehensive metabolic panel METABOLIC PANEL, COMPREHENSIVE (88799) [facility] Work Phone: Start: 01-15-2007 Prothrombin time (PT) Coag time (PPP) PT (Prothrobim Time) (46762) [facility] Work Phone: Start: 01-15-2007 aPTT Coag time (Bld) PTT (Activated Partial Thromboplastin Time) (93724) [facility] Work Phone: Start: 01-15-2007 Glucose tolerance test gtt 3 specimens GLUCOSE TOLERANCE TEST (GTT) 2 hour (97063) [facility] Work Phone: Start: 01-12-2007 Urnls dip stick/tablet rgnt auto w/o microscopy URINALYSIS W/O MICRO (02436) [facility] Work Phone: Start: 01-12-2007 Thyrotropin Qn TSH (10021) [facility] Work Phone: Start: 01-12-2007 Urine albumin quantitative MICROALBUMIN URINE QUANT (99661) [facility] Work Phone: Start: 01-12-2007 Lipid panel LIPID PANEL (36519) [facility] Work Phone: Start: 01-12-2007 Blood count manual cell count each CBC WITH MANUAL DIFF (16861) [facility] Work Phone: Start: 01-12-2007 Comprehensive metabolic panel METABOLIC PANEL, COMPREHENSIVE (40189) [facility] Work Phone: Start: 2007 COLOGUARD (FIT-DNA) COLOGUARD (FIT-DNA) [facility] Start: 2007 Colonoscopy COLONOSCOPY [facility] Start: [address] COLONOGRAPHY [facility] Start: 2007 Screening for malignant neoplasm of colon [facility] Start: 2007 SIGMOIDOSCOPY SIGMOIDOSCOPY [facility] Start: 01-07-1992 HPV TESTING HPV TESTING [facility] Start: 1981 Pneumococcal Vaccine: 50+ (1 of 2 - PCV) Pneumococcal Vaccine: 50+ (1 of 2 - PCV) [facility] Start: 1981 Urine microalbumin profile [facility] Start: 01-07-1980 Anxiety Screening Anxiety Screening [facility] Start: 01-07-1980 BP CONTROLLED (<130/80) BP CONTROLLED (<130/80) [facility] Start: 01-07-1980 Depression Screening Depression Screening [facility] Start: 01-07-1980 HEPATITIS C SCREENING HEPATITIS C SCREENING [facility] Start: 01-07-1980 HIV SCREENING HIV SCREENING [facility] Start: 01-07-1968 PNEUMOCOCCAL (1 - PCV) PNEUMOCOCCAL (1 - PCV) [facility] ic Start: 01-07-1968 Pneumococcal vaccination Pneumococcal Vaccine (1 - PCV) [facility] End: 04-21-2025 BD DXA TRABECULAR BONE SCORE (TBS) BD DXA TRABECULAR BONE SCORE (TBS) Radiology Routine Osteopenia, unspecified location Asymptomatic postmenopausal status 1 Occurrences starting 03/22/2024 until 04/21/2025 [facility] Comment on above: 1 Occurrences starting 03/22/2024 until 04/21/2025 BD DXA TRABECULAR HEIDI NE SCORE (TBS) BD DXA TRABECULAR BONE SCORE (TBS) Radiology Routine Osteopenia, unspecified location Asymptomatic postmenopausal status 04/12/2024 3:57 PM EDT [facility] End: 04-21-2025 DXA Skeletal system.axial Views for bone density DXA-AXIAL SKELETON Radiology Routine Osteopenia, unspecified location Asymptomatic postmenopausal status 1 Occurrences starting 03/22/2024 until 04/21/2025 [facility] Comment on above: 1 Occurrences starting 03/22/2024 until 04/21/2025 DXA Skeletal system.axial Views for bone density DXA-AXIAL SKELETON Radiology Routine Osteopenia, unspecified location Asymptomatic postmenopausal status 04/12/2024 3:57 PM EDT [facility] Work Phone: End: 05-09-2023 EGD DIAGNOSTIC EGD DIAGNOSTIC Endoscopy Routine Dysphagia, unspecified type 1 Occurrences starting 05/09/2022 until 05/09/2023 [facility] Work Phone: Comment on above: 1 Occurrences starting 05/09/2022 until 05/09/2023 End: 06-26-2025 EGD DIAGNOSTIC EGD DIAGNOSTIC Endoscopy Routine Gastritis without bleeding, unspecified chronicity, unspecified gastritis type Hiatal hernia 1 Occurrences starting 06/26/2024 until 06/26/2025 [facility] Work Phone: Comment on above: 1 Occurrences starting 06/26/2024 until 06/26/2025 Esophageal motility study w/interp&rpt ESOPHAGEAL MANOMETRY Gastroesophageal reflux disease, unspecified whether esophagitis present Hiatal hernia Esophageal dysphagia Type 2 diabetes mellitus with other specified complication, without long-term current use of insulin ([facility]) Hypertension, unspecified type Hyperlipidemia, unspecified hyperlipidemia type Osteopenia, unspecified location Class 1 obesity with serious comorbidity and body mass index (BMI) of 31.0 to 31.9 in adult, unspecified obesity type [facility] End: 06-05-2026 Manometry Study observation Narrative MANOMETRY ESOPHAGEAL Endoscopy Routine Esophageal dysphagia 1 Occurrences starting 06/05/2025 until 06/05/2026 [facility] Work Phone: Comment on above: 1 Occurrences starting 06/05/2025 until 06/05/2026 End: 04-21-2025 MG Breast Screening WENDY SCREENING Radiology Routine Encounter for screening mammogram for breast cancer 1 Occurrences starting 03/22/2024 until 04/21/2025 [facility] Work Phone: Comment on above: 1 Occurrences starting 03/22/2024 until 04/21/2025 MG Breast Screening WENDY SCREENIN G Radiology Routine Encounter for screening mammogram for breast cancer 06/11/2024 3:41 PM EDT [facility] Work Phone: Patient referral [facility] Work Phone: End: 11-22-2023 Screening colonoscopy COLONOSCOPY SCREENING Endoscopy Routine Screening for colon cancer 1 Occurrences starting 11/22/2022 until 11/22/2023 [facility] Work Phone: Comment on above: 1 Occurrences starting 11/22/2022 until 11/22/2023 SURGICAL PATHOLOGY [facility] Work Phone: Comment on above: Release Upon Ordering for 1 Occurrences starting 08/07/2024, 1 completed [facility] Work Phone: [facility] Work Phone: [facility] Work Phone[facility] Work Phone: [facility] Work Phone: [facility] Work Phone: [facility] Work Phone: [facility] Work Phone: [facility] Work Phone: [facility] Work Phone[facility] Work Phone: [facility] Work Phone: [facility] Work Phone: [facility] Work Phone: [facility] Work Phone: [facility] Work Phone: [facility] Work Phone: [facility] Work Phone: [facility] Work Phone: [facility] Work Phone: [facility] Work Phone: [facility] Work Phone: [facility] Work Phone: [facility] Work Phone: [facility] Work Phone: [facility] Work Phone[facility] Work Phone: [facility] Work Phone: [facility] Work Phone: [facility] Work Phone: [facility] Immunizations Immunization Date Immunization Notes Care Provider [facility] 01-24-2025 pneumococcal conjuga te (PCV21) vaccine, 21 valent (CAPVAXIVE) [facility] Work Phone: [facility] 01-24-2025 zoster vaccine recombinant [facility] Work Phone: [facility] 09-23-2024 COVID-19 vaccine, ag e 12+ yr ([facility] Jose Bullard MD Work Phone: [facility] 09-23-2024 influenza, seasonal, injectable Jose Bullard MD Work Phone: [facility] 09-23-2024 influenza virus vaccine, unspecified formulation 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.[employer] Work Phone: [facility] 11-17-2023 influenza, injectabl e, quadrivalent, contains preservative Jose Bullard MD Work Phone: [facility] 11-17-2023 influenza virus vaccine, unspecified formulation Kyleigh Matson DYEHOUSE WORKER.[employer]GE[employer] Work Phone: [facility] 10-24-2022 COVID-19 booster vaccine, age 12+ yr, bivalent (MODERNA) Jose Bullard MD Work Phone: [facility] Work Phone: 10-24-2022 influenza, injectabl e, quadrivalent, preservative free Jose Bullard MD Work Phone: [facility] Work Phone: 10-24-2022 influenza virus vaccine, unspecified formulation Screen Wstr [facility] 10-12-2021 COVID-19 original vaccine, full dose, monovalent (MODERNA) Jose Bullard MD Work Phone: [facility] Work Phone: 03-10-2021 COVID-19 vaccine, fu ll dose (MODERNA) Jose Bullard MD Work Phone: [facility] 02-10-2021 COVID-19 vaccine, fu ll dose (MODERNA) Jose Bullard MD Work Phone: [facility] 06-29-2020 influenza, injectabl e, quadrivalent, preservative free Jose Bullard MD Work Phone: [facility] 05-10-2019 influenza virus vaccine, unspecified formulation Jose Bullard MD Work Phone: [facility] Payers Date Payer Category Payer Self-pay 2015 [place] [employer] [facility] BLUE CARD PPO OOS Member Subscriber Plan / Payer (Effective 2015-Present) Name: Susan Bobby Relation to Subscriber: Self Name: Susan Bobby Payer ID: [id number] (NAIC) Type: PPO Address: [address] [place] [id number] 2015 Unknown 2015 Unknown [employer] BLUE CARD PPO OOS [id number] 2015-Present [phone] [address] [place] [address] PPO [id number] 2009 Unknown [id number] Unknown [id number] Unknown [id number] Unknown [id number] Unknown [id number] Social History Date Type Detail Facility Start: 11-11-2022 End: 09-23-2024 No Caffeine Use Never smoker [facility] Work Phone: Comment on above: 06/29/11 Tobacco use: Never smoker. [facility] Work Phone: Start: 12-20-2018 End: 11-15-2022 Tobacco smoking status NHIS Never smoked tobacco [facility] Start: 12-20-2018 End: 11-15-2022 Tobacco use and exposure Smokeless tobacco non-user [facility] Start: 06-14-2021 End: 06-05-2025 Alcohol intake Current non-drinker of alcohol (finding) [facility] Start: 1960 Sex Assigned At Not on file [facility] Start: 08-12-2021 End: 05-31-2022 Exposure to SARS-CoV-2 (event) Not sure [facility] Work Phone: Start: 11-12-2022 History SDOH Alcohol Frequency 1 [facility] Start: 11-12-2022 History SDOH Alcohol Std Drinks 0 [facility] Start: 11-12-2022 History SDOH Social Connections Phone 3 [facility] Start: 11-12-2022 History SDOH Social Connections Get Together 2 [facility] Start: 11-12-2022 History SDOH Financial 5 [facility] Start: 11-11-2022 End: 09-23-2024 Social connection and isolation panel [facility] Do you belong to any clubs or organizations such as restoration groups, unions, fraternal or athletic groups, or school groups? Yes [facility] Are you now , , , , never or living with a partner? [facility] How often to you hav e a drink containing alcohol? Never [facility] Start: 09-23-[address] inks containing alcohol do you have on a typical day? Patient does not drink [facility] Do you feel stress - tense, restless, nervous, or anxious, or unable to sleep at night because your mind is troubled all the time - these days [OSQ] Only a little [facility] (I/We) worried whemartha er (my/our) food would run out before (I/we) got money to buy more. Never true [facility] In the past 12 month s, was there a time when you were not able to pay the mortgage or rent on time? No [facility] Do you feel stress - tense, restless, nervous, or anxious, or unable to sleep at night because your mind is troubled all the time - these days [OSQ] Not at all [facility] Start: 12-30-2024 End: 12-31-2024 Sex Female (finding) [facility] Start: 1960 Sex Assigned At Female [facility] Medical Equipment Procedure Code Equipment Code Equipment Origin al Text Equipment Identifier Dates Test blood sugar(s) 1 times daily. Dx: Type 2 DM - Controlled E11.9 Insulin: No [id number] Start: 12-21-2020 Comment on above: Test blood sugar(s) 1 times daily. Dx: Type 2 DM - Controlled E11.9 Insulin: No Functional Status Date Assessment Result Facility 10-20-2016 LP-IR Score 62 [facility] Work Phone: Comment on above: INSULIN RESISTANCE Sisi FATIMA <--Insulin Sensitive Insulin Resistant--> Percentile in Reference PopulationInsulin Resistance ScoreLP-IR Score Low 25th 50th 75th High <27 27 45 63 >63LP-IR Score is inaccurate if patient is non-fasting. .The LP-IR score is a laboratory developed index that has beenassociated with insulin resistance and diabetes risk and should beused as one component of a physician's clinical assessment. TheLP-IR score listed above has not been cleared by the [place] Food andDrug Administration. Clinical Notes 09-11-2021 to 07-29-2025 Addendum Note - Carina Marcos - 06/05/2025 3:24 PM EDTAddendum Note - Carina Marcos - 06/05/2025 3:24 PM Ally Lucas RN - 06/05/2025 3:20 PM EDKyle Eden MA - 12/31/2024 3:29 PM EDT Note Date & Type Note Facility 07-29-2025 Note HNO ID: [id number] Author: ?, ?, ? Service: ? Author Type: ? Type: Progress Notes Filed: 07/29/2025 09:28 Note Text: Laparoscopic, possible open, paraesophageal hernia repair with placement of biologic mesh, Toupet fundoplication, upper endoscopy, and bilateral TAP blocks. Possible: blood transfusion [facility] 07-24-2025 Note HNO ID: [id number] Author: ERNESTINA GRIMALDO MD Service: ? Author Type: Physician Type: Progress Notes Filed: 07/24/2025 11:41 Note Text: SURGICAL SERVICES HISTORY AND PHYSICAL EXAMINATION SERVICE DATE: 07/24/2025 SERVICE TIME: 11:04 AM PRIMARY CARE PHYSICIAN: Jose Bullard MD SUBJECTIVE CHIEF COMPLAINT: Gi issues HISTORY OF PRESENT ILLNESS: Ms. Bobby is a 65 year old female with a PMH of diabetes (A1c <6; metformin), HTN, HLD, GERD, CKD, hiatal hernia, osteopenia and obesity (BMI 31.63) who presents for surgical consultation and follow up after testing. Today she reports improvement in dysphagia since undergoing esophageal dilation. Workup: - EGD (07/11/25; Re): mild Schatzki ring at LES; dialted to 20 mm; HG IV GEJ with 4 cm small hiatal hernia - Pathology: Stomach, antrum, biopsy: Gastric mucosa with chronic inactive gastritis, (see comment). Esophagus, distal, biopsy: Esophageal squamous mucosa with no histopathologic abnormality. Esophagus, proximal, biopsy: Esophageal squamous mucosa with no histopathologic abnormality - Manometry (06/2025): 70% intact swallows with 30% intact; DCI WNL; IRP WNL. No [place] Classification abnormalities. - UGI (04/09/25): GERD, small hiatal hernia Contour irregularity at the distal esophagus at the gastroesophageal junction region. Cannot exclude underlying stricturing/scarring or other underlying abnormality or lesion. Recommend correlation with EGD - GES (03/21/25): WNL - CT abd/pelvis (12/29/24): Liver, pancreas, spleen, adrenal glands, and kidneys are unremarkable. The gallbladder is surgically absent. There is a small hiatal hernia. There is no bowel obstruction. There are no inflammatory changes of the bowel loops. The appendix is normal. There are no free intraperitoneal collections. Urinary bladder is unremarkable. Uterus and adnexa are absent. There is mild calcified atherosclerosis. Portal venous system is patent and there are no venous filling defects. There are no pathologically enlarged nodes. - EGD (08/07/24): medium sized hiatal hernia - HG 4 GEJ on my review of images - Pathology: Stomach, biopsy: Fundic mucosa with mild chronic inactive gastritis. Esophagogastric junction, biopsy: Mildly reactive squamous mucosa. No evidence of intestinal metaplasia or dysplasia Per my last clinic note: she reports having had GERD symptoms since her 20s and has been on PPIs for many years and most recently on 40 mg Protonix once daily. Due to her long history of PPI use she was recommended to undergo further workup. She has had multiple ER visits due to abdominal pain which was thought to be secondary to GERD. She was evaluated by GI and found to have a hiatal hernia. She endorses intermittent dysphagia that causes emesis. She also endorses chronic nocturnal cough. Social: denies x 3 PSHx: CCx, CASSANDRA PAST MEDICAL HISTORY: PAST MEDICAL HISTORY Diagnosis Date Acute gastritis DM (diabetes mellitus) (HCC) GERD (gastroesophageal reflux disease) Hiatal hernia 08/07/2024 med-large HLD (hyperlipidemia) HTN (hypertension) PAST SURGICAL HISTORY: PAST SURGICAL HISTORY Procedure Laterality Date CHOLECYSTECTOMY N/A done when she was 23 COLONOSCOPY 01/13/2023 EGD W/O [facility] SPEC VARICIES INJ 05/19/2022 EGD WITH BIOPSY(S) 08/07/2024 med-large hiatal hernia; Dr. Reid TOTAL ABDOMINAL HYSTERECT W/WO RMVL TUBE OVARY N/A 10/2017 for abnormal bleeding. no cancer VAGINAL HYSTERECTOMY FAMILY HISTORY: FAMILY HISTORY Problem Relation Age of Onset Hypertension Mother Dementia Father Colon Cancer No Family History SOCIAL HISTORY: SOCIAL HISTORY[1] MEDICATIONS: Current Outpatient Medications Medication Sig pantoprazole DR (PROTONIX) 40 mg tablet Take 1 tablet by mouth once daily. benazepril (LOTENSIN) 20 mg tablet Take 1 tablet by mouth once daily. hydroCHLOROthiazide 25 mg tablet Take 1 tablet by mouth once daily. metFORMIN (GLUCOPHAGE) 500 mg tablet Take 1 tablet by mouth daily with breakfast. rosuvastatin (CRESTOR) 5 mg tablet Take 1 tablet by mouth once daily. calcium phosphate dibas/vit D3 (VITAMIN D, WITH CALCIUM, ORAL) Take by mouth. multivitamin (DAILY VITAMIN ORAL) Take by mouth once daily. blood sugar diagnostic (BLOOD GLUCOSE TEST) test strip Test blood sugar(s) 1 times daily. Dx: Type 2 DM - Controlled E11.9 Insulin: No No current facility-administered medications for this visit. ALLERGIES: ALLERGIES No Known Allergies COMPLETE REVIEW OF SYSTEMS: Review of Systems Constitutional: Negative for chills, diaphoresis, fever and malaise/fatigue. HENT: Negative for congestion, hearing loss, nosebleeds, sinus pain, sore throat and tinnitus. Eyes: Negative for blurred vision, double vision, pain and redness. Respiratory: Negative for cough, hemoptysis, sputum production, shortness of breath and wheezing. Cardiovascular: Negative for chest pain, palpitations, orthopnea, leg swell (more content not included)... [facility] 07-11-2025 Note HNO ID: [id number] Author: MAGDALENA ILM RN Service: Nursing Author Type: Registered Nurse Type: Nursing Progress Note Filed: 07/11/2025 10:25 Note Text: Other: [id number] Dr. Ernestina Grimaldo at bedside speaking with patient post procedure. [facility] 06-05-2025 Note Addended by: CARINA MARCOS on: 06/05/2025 03:24 PM Modules accepted: Orders [facility] 06-05-2025 Miscellaneous Notes Addended by: CARINA MARCOS on: 06/05/2025 03:24 PM Modules accepted: Orders documented in this encounter [facility] 06-05-2025 Note HNO ID: [id number] Author: ALLY LAMAS RN Service: ? Author Type: Nurse Clinician Type: Progress Notes Filed: 06/05/2025 15:25 Note Text: Patient given written information about esophageal manometry and the prep instructions. I verbally discussed and reviewed the information with the patient. All of patient's questions were answered. Patient given written information about and EGD and biopsy and the prep instructions. I verbally discussed and reviewed the information with the patient. All of patient's questions were answered. Ally Lamas RN [facility] 06-05-2025 History of Present illness Narrative Patient given written information about esophageal manometry and the prep instructions. I verbally discussed and reviewed the information with the patient. All of patient's questions were answered. Patient given written information about and EGD and biopsy and the prep instructions. I verbally discussed and reviewed the information with the patient. All of patient's questions were answered. Ally Lamas RN Date: June 05, 2025 Time: 2:33 PM Susan Bobby is a 65 year old year old female with obesity (Body mass index is 31.63 kg/m .), diabetes (A1c <6; metformin), HTN, HLD, GERD, hiatal hernia, osteopenia and obesity (BMI 31.63) who presents to the clinic today for consideration of surgery. Surgical consultation was requested by the patient's referring provider, Kyle Alexandra APRN, CNP. A copy of this consultation note will be provided to the requesting physician(s) by way of shared medical record or letter via [place] mail. The patient reports having had GERD symptoms since her 20s and has been on PPIs for many years and most recently on 40 mg Protonix once daily. Due to her long history of PPI use she was recommended to undergo further workup. She has had multiple ER visits due to abdominal pain which was thought to be secondary to GERD. She was evaluated by GI and found to have a hiatal hernia. She endorses intermittent dysphagia that causes emesis. She also endorses chronic nocturnal cough. Workup: - UGI (04/09/25): GERD, small hiatal hernia Contour irregularity at the distal esophagus at the gastroesophageal junction region. Cannot exclude underlying stricturing/scarring or other underlying abnormality or lesion. Recommend correlation with EGD - GES (03/21/25): WNL - CT abd/pelvis (12/29/24): Liver, pancreas, spleen, adrenal glands, and kidneys are unremarkable. The gallbladder is surgically absent. There is a small hiatal hernia. There is no bowel obstruction. There are no inflammatory changes of the bowel loops. The appendix is normal. There are no free intraperitoneal collections. Urinary bladder is unremarkable. Uterus and adnexa are absent. There is mild calcified atherosclerosis. Portal venous system is patent and there are no venous filling defects. There are no pathologically enlarged nodes. - EGD (08/07/24): medium sized hiatal hernia - HG 4 GEJ on my review of images - Pathology: Stomach, biopsy: Fundic mucosa with mild chronic inactive gastritis. Esophagogastric junction, biopsy: Mildly reactive squamous mucosa. No evidence of intestinal metaplasia or dysplasia Social: denies x 3 PSHx: CCx, CASSANDRA PAST MEDICAL HISTORY Diagnosis Date Acute gastritis DM (diabetes mellitus) (HCC) GERD (gastroesophageal reflux disease) Hiatal hernia 08/07/2024 med-large HLD (hyperlipidemia) HTN (hypertension) PAST SURGICAL HISTORY Procedure Laterality Date CHOLECYSTECTOMY N/A done when she was 23 COLONOSCOPY 01/13/2023 EGD W/O [facility] SPEC VARICIES INJ 05/19/2022 EGD WITH BIOPSY(S) 08/07/2024 med-large hiatal hernia; Dr. Reid TOTAL ABDOMINAL HYSTERECT W/WO RMVL TUBE OVARY N/A 10/2017 for abnormal bleeding. no cancer VAGINAL HYSTERECTOMY FAMILY HISTORY Problem Relation Age of Onset Hypertension Mother Dementia Father Colon Cancer No Family History SOCIAL HISTORY[1] Current Outpatient Medications Medication Sig pantoprazole DR (PROTONIX) 40 mg tablet Take 1 tablet by mouth once daily. benazepril (LOTENSIN) 20 mg tablet Take 1 tablet by mouth once daily. hydroCHLOROthiazide 25 mg tablet Take 1 tablet by mouth once daily. metFORMIN (GLUCOPHAGE) 500 mg tablet Take 1 tablet by mouth daily with breakfast. rosuvastatin (CRESTOR) 5 mg tablet Take 1 tablet by mouth once daily. calcium phosphate dibas/vit D3 (VITAMIN D, WITH CALCIUM, ORAL) Take by mouth. multivitamin (DAILY VITAMIN ORAL) Take by mouth once daily. blood sugar diagnostic (BLOOD GLUCOSE TEST) test strip Test blood sugar(s) 1 times daily. Dx: Type 2 DM - Controlled E11.9 Insulin: No No current facility-administered medications for this visit. ALLERGIES No Known Allergies Review of Systems Constitutional: Negative for chills, diaphoresis, fever and malaise/fatigue. HENT: Negative for congestion, hearing loss, nosebleeds, sinus pain, sore throat and tinnitus. Eyes: Negative for blurred vision, double vision, pain and redness. Respiratory: Negative for cough, hemoptysis, sputum production, shortness of breath and wheezing. Cardiovascular: Negative for chest pain, palpitations, orthopnea, leg swelling and PND. Gastrointestinal: Positive for heartburn. Negative for abdominal pain, blood in stool, constipation, diarrhea, nausea and vomiting. Genitourinary: Negative for dysuria, frequency, hematuria and urgency. Musculoskeletal: Negative for back pain, falls, joint pain, myalgias and neck pain. Skin: Negative for itching and rash. Neurological: Negative for dizziness, speech change, focal weakness, seizures, loss of consciousness, weakness and headaches. Endo/Heme/Allergies: Does not bruise/bleed easily. Psychiatric/Behavioral: Negative for depression, hallucinations, memory loss, substance abuse and suicidal ideas. The patient is not nervous/anxious and does not have insomnia. Physical Exam Vitals reviewed. Constitutional: Appearance: Normal appearance. She is obese. HENT: Head: Normocephalic and atraumatic. Nose: Nose normal. Eyes: General: No scleral icterus. Extraocular Movements: Extraocular movements intact. Conjunctiva/sclera: Conjunctivae normal. Pupils: Pupils are equal, round, and reactive to light. Cardiovascular: Rate and Rhythm: Normal rate. Pulmonary: Effort: Pulmonary effort is normal. No respiratory distress. Skin: General: Skin is warm and dry. Coloration: Skin is not jaundiced or pale. Neurological: Mental Status: She is alert and oriented to person, place, and time. Psychiatric: Behavior: Behavior normal. Plan IMPRESSION: Susan Bobby is a 65 year old year old female who presents for consideration of surgery (Body mass index is 31.63 kg/m .) due to a known paraesophageal hernia and GERD. ASSESSMENT/PLAN: 1. Gastroesophageal reflux disease, unspecified whether esophagitis present - ICD9: 530.81, ICD10: K21.9 (primary diagnosis) - Discussed lifestyle modifications including losing weight, limiting caffeine, no meals three hours before sleep, and head of bed elevation - Continue treatment with Protonix 40 mg daily - On my review of her recent EGD she does what could be reflux esophagitis. I encouraged her to keep taking Protonix 40 mg daily as prescribed. Due to recent UGI findings I am recommending repeat EGD with possible esophageal dilation and biopsies of proximal and distal esophagus. - We discussed surgical intervention in the future of paraesophageal hernia with possible fundoplication. I vida many pictures for her and answered all of her questions. - Setup for EGD - EGD DIAGNOSTIC 2. Hiatal hernia - ICD9: 553.3, ICD10: K44.9 - Discussed repair - see above - EGD DIAGNOSTIC 3. Esophageal dysphagia - ICD9: 787.29, ICD10: R13.19 - Due to intermittent dysphagia and emesis will obtain esophageal manometry to rule out esophageal dysmotility - MANOMETRY ESOPHAGEAL 4. Type 2 diabetes mellitus with other specified complication, without long-term current use of insulin (HCC) - ICD9: 250.80, ICD10: E11.69 - Continue current medical management 5. Hypertension, unspecified type - ICD9: 401.9, ICD10: I10 - Continue current medical management 6. Hyperlipidemia, unspecified hyperlipidemia type - ICD9: 272.4, ICD10: E78.5 - Continue current medical management 7. Osteopenia, unspecified location - ICD9: 733.90, ICD10: M85.80 - Continue current medical management 8. Class 1 obesity with serious comorbidity and body mass index (BMI) of 31.0 to 31.9 in adult, unspecified obesity type - ICD9: 278.00, V85.31, ICD10: E66.811, Z68.31 - Discussed the importance of weight loss, especially as she does have some central obesity. If we do pursue surgical intervention she will benefit for weight loss Ernestina Grimaldo MD Advanced Laparoscopic and Bariatric Surgery Medical Decision Making: Problems: Moderate: New problem with uncertain prognosis Data: Unique test result(s) reviewed: 3+ Unique test(s) ordered: 2 Discussed management or test w/ external physician/QHCP/source Risk: Moderate: Drug management and Moderate risk from testing/treatment Medical Decision Making Level: 4 - Moderate [1] Social History Tobacco Use Smoking status: Never Smokeless tobacco: Never Vaping Use Vaping status: Never Used Substance Use Topics Alcohol use: No Drug use: No documented in this encounter [facility] 06-05-2025 Note HNO ID: [id number] Author: ERNESTINA GRIMALDO MD Service: ? Author Type: Physician Type: Progress Notes Filed: 06/05/2025 15:15 Note Text: Date: June 05, 2025 Time: 2:33 PM Susan Bobby is a 65 year old year old female with obesity (Body mass index is 31.63 kg/m?.), diabetes (A1c <6; metformin), HTN, HLD, GERD, hiatal hernia, osteopenia and obesity (BMI 31.63) who presents to the clinic today for consideration of surgery. Surgical consultation was requested by the patient's referring provider, Kyle Alexandra APRN, CNP. A copy of this consultation note will be provided to the requesting physician(s) by way of shared medical record or letter via [place] mail. The patient reports having had GERD symptoms since her 20s and has been on PPIs for many years and most recently on 40 mg Protonix once daily. Due to her long history of PPI use she was recommended to undergo further workup. She has had multiple ER visits due to abdominal pain which was thought to be secondary to GERD. She was evaluated by GI and found to have a hiatal hernia. She endorses intermittent dysphagia that causes emesis. She also endorses chronic nocturnal cough. Workup: - UGI (04/09/25): GERD, small hiatal hernia Contour irregularity at the distal esophagus at the gastroesophageal junction region. Cannot exclude underlying stricturing/scarring or other underlying abnormality or lesion. Recommend correlation with EGD - GES (03/21/25): WNL - CT abd/pelvis (12/29/24): Liver, pancreas, spleen, adrenal glands, and kidneys are unremarkable. The gallbladder is surgically absent. There is a small hiatal hernia. There is no bowel obstruction. There are no inflammatory changes of the bowel loops. The appendix is normal. There are no free intraperitoneal collections. Urinary bladder is unremarkable. Uterus and adnexa are absent. There is mild calcified atherosclerosis. Portal venous system is patent and there are no venous filling defects. There are no pathologically enlarged nodes. - EGD (08/07/24): medium sized hiatal hernia - HG 4 GEJ on my review of images - Pathology: Stomach, biopsy: Fundic mucosa with mild chronic inactive gastritis. Esophagogastric junction, biopsy: Mildly reactive squamous mucosa. No evidence of intestinal metaplasia or dysplasia Social: denies x 3 PSHx: CCx, CASSANDRA PAST MEDICAL HISTORY Diagnosis Date Acute gastritis DM (diabetes mellitus) (HCC) GERD (gastroesophageal reflux disease) Hiatal hernia 08/07/2024 med-large HLD (hyperlipidemia) HTN (hypertension) PAST SURGICAL HISTORY Procedure Laterality Date CHOLECYSTECTOMY N/A done when she was 23 COLONOSCOPY 01/13/2023 EGD W/O [facility] SPEC VARICIES INJ 05/19/2022 EGD WITH BIOPSY(S) 08/07/2024 med-large hiatal hernia; Dr. Reid TOTAL ABDOMINAL HYSTERECT W/WO RMVL TUBE OVARY N/A 10/2017 for abnormal bleeding. no cancer VAGINAL HYSTERECTOMY FAMILY HISTORY Problem Relation Age of Onset Hypertension Mother Dementia Father Colon Cancer No Family History SOCIAL HISTORY[1] Current Outpatient Medications Medication Sig pantoprazole DR (PROTONIX) 40 mg tablet Take 1 tablet by mouth once daily. benazepril (LOTENSIN) 20 mg tablet Take 1 tablet by mouth once daily. hydroCHLOROthiazide 25 mg tablet Take 1 tablet by mouth once daily. metFORMIN (GLUCOPHAGE) 500 mg tablet Take 1 tablet by mouth daily with breakfast. rosuvastatin (CRESTOR) 5 mg tablet Take 1 tablet by mouth once daily. calcium phosphate dibas/vit D3 (VITAMIN D, WITH CALCIUM, ORAL) Take by mouth. multivitamin (DAILY VITAMIN ORAL) Take by mouth once daily. blood sugar diagnostic (BLOOD GLUCOSE TEST) test strip Test blood sugar(s) 1 times daily. Dx: Type 2 DM - Controlled E11.9 Insulin: No No current facility-administered medications for this visit. ALLERGIES No Known Allergies Review of Systems Constitutional: Negative for chills, diaphoresis, fever and malaise/fatigue. HENT: Negative for congestion, hearing loss, nosebleeds, sinus pain, sore throat and tinnitus. Eyes: Negative for blurred vision, double vision, pain and redness. Respiratory: Negative for cough, hemoptysis, sputum production, shortness of breath and wheezing. Cardiovascular: Negative for chest pain, palpitations, orthopnea, leg swelling and PND. Gastrointestinal: Positive for heartburn. Negative for abdominal pain, blood in stool, constipation, diarrhea, nausea and vomiting. Genitourinary: Negative for dysuria, frequency, hematuria and urgency. Musculoskeletal: Negative for back pain, falls, joint pain, myalgias and neck pain. Skin: Negative for itching and rash. Neurological: Negative for dizziness, speech change, focal weakness, seizures, loss of consciousness, weakness and headaches. Endo/Heme/Allergies: Does not bruise/bleed easily. Psychiatric/Behavioral: Negative for depression, hallucinations, memory loss, substance abuse and suicidal ideas. Th (more content not included)... [facility] 04-21-2025 Telephone encounter Note Letter mailed to pt home of results. Yaquelin Cordoba MA [facility] 04-21-2025 Miscellaneous Notes Letter mailed to pt home of results. Yaquelin Cordoba MA ----- Message from Leila Mansfield sent at 04/15/2025 4:51 PM EDT ----- Hemoglobin A1c is 5.7 indicating diabetes is well-controlled. Rosuvastatin is controlling your cholesterol well. Kidney function remains slightly weak but stable. Remember to drink 64 ounces of water daily to flush your kidneys. No effect of diabetes on your kidneys. Blood counts are normal. Left message for patient to return call and speak with nurse or read [employer] message Kyle Walker Ma ----- Message from Leila Mansfield sent at 04/15/2025 4:51 PM EDT ----- Hemoglobin A1c is 5.7 indicating diabetes is well-controlled. Rosuvastatin is controlling your cholesterol well. Kidney function remains slightly weak but stable. Remember to drink 64 ounces of water daily to flush your kidneys. No effect of diabetes on your kidneys. Blood counts are normal. Hemoglobin A1c is 5.7 indicating diabetes is well-controlled. Rosuvastatin is controlling your cholesterol well. Kidney function remains slightly weak but stable. Remember to drink 64 ounces of water daily to flush your kidneys. No effect of diabetes on your kidneys. Blood counts are normal. documented in this encounter [facility] 04-21-2025 Telephone encounter Note ----- Message from eLila Mansfield sent at 04/15/2025 4:51 PM EDT ----- Hemoglobin A1c is 5.7 indicating diabetes is well-controlled. Rosuvastatin is controlling your cholesterol well. Kidney function remains slightly weak but stable. Remember to drink 64 ounces of water daily to flush your kidneys. No effect of diabetes on your kidneys. Blood counts are normal. [facility] 04-17-2025 Telephone encounter Note Left message for patient to return call and speak with nurse or read [employer] message Kyle Walker Ma [facility] 04-17-2025 Telephone encounter Note ----- Message from Leila Mansfield sent at 04/15/2025 4:51 PM EDT ----- Hemoglobin A1c is 5.7 indicating diabetes is well-controlled. Rosuvastatin is controlling your cholesterol well. Kidney function remains slightly weak but stable. Remember to drink 64 ounces of water daily to flush your kidneys. No effect of diabetes on your kidneys. Blood counts are normal. [facility] 04-15-2025 Progress note Formatting of t his note might be different from the original. Hemoglobin A1c is 5.7 indicating diabetes is well-controlled. Rosuvastatin is controlling your cholesterol well. Kidney function remains slightly weak but stable. Remember to drink 64 ounces of water daily to flush your kidneys. No effect of diabetes on your kidneys. Blood counts are normal. [facility] Work Phone: 04-09-2025 History of Present illness Narrative Radiology Service Progress Note PATIENT NAME: Susan Bobby DATE OF SERVICE: April 09, 2025 TIME: 9:14 AM PATIENT IDENTITY VERIFICATION COMPLETED USING TWO (2) IDENTIFIERS: Name and Date of confirmed by patient verbally. FALL SCREENING: Has the patient had 2 falls in the last year or 1 fall with injury or currently using an Ambulatory Assistive Device (Walker, Cane, Wheelchair, Crutches, etc.)? No PATIENT GENDER DATA: Assigned female at . status: : No status: NO. PATIENT RELEVANT IMPLANT DATA REVIEWED: Not Applicable PATIENT PRESENTS WITH AN IMPLANTABLE OR ATTACHED REPEATER OPERATOR: No RADIOLOGY DEPARTMENT: General X-ray: Exam(s) Completed: GI/ Procedure(s): Upper GI with barium contrast PERIPHERAL IV DATA: Not applicable SIGNED BY: RT Balaji(Alice) April 09, 2025 9:14 AM documented in this encounter [facility] 04-09-2025 Note HNO ID: [id number] Author: FILI GUEVARA RT(Alice) Service: ? Author Type: [employer] Type: Progress Notes Filed: 04/09/2025 09:14 Note Text: Radiology Service Progress Note PATIENT NAME: Susan Bobby DATE OF SERVICE: April 09, 2025 TIME: 9:14 AM PATIENT IDENTITY VERIFICATION COMPLETED USING TWO (2) IDENTIFIERS: Name and Date of confirmed by patient verbally. FALL SCREENING: Has the patient had 2 falls in the last year or 1 fall with injury or currently using an Ambulatory Assistive Device (Walker, Cane, Wheelchair, Crutches, etc.)? No PATIENT GENDER DATA: Assigned female at . status: : No status: NO. PATIENT RELEVANT IMPLANT DATA REVIEWED: Not Applicable PATIENT PRESENTS WITH AN IMPLANTABLE OR ATTACHED REPEATER OPERATOR: No RADIOLOGY DEPARTMENT: General X-ray: Exam(s) Completed: GI/ Procedure(s): Upper GI with barium contrast PERIPHERAL IV DATA: Not applicable SIGNED BY: RT Balaji(R) April 09, 2025 9:14 AM [facility] 03-24-2025 Note HNO ID: [id number] Author: JOSE BULLARD MD Service: ? Author Type: Physician Type: Progress Notes Filed: 03/24/2025 17:21 Note Text: Traci is a 65-year-old female with a history of DM, HTN, hyperlipidemia, GERD, and osteopenia, presenting for a follow-up visit. HPI Diabetes Mellitus: - No recent episodes of hyperglycemia or hypoglycemia. - Monitors blood glucose occasionally; recent fasting glucose readings around 92 mg/dL. - Denies polyuria, polydipsia, or paresthesia in extremities. Hypertension: - Well-controlled with benazepril and HCTZ. - Recent BP readin/82 mmHg. Hyperlipidemia: - Managed with rosuvastatin; no reported side effects. GERD: - Managed with pantoprazole; no reported side effects. - Recent episodes of emesis have resolved; last episode occurred after a cruise. - Undergoing evaluation by a department of natural resources officer; scheduled for a barium swallow study. Osteopenia: - Diagnosed approximately one year ago. - Encouraged to maintain an active lifestyle and ensure adequate intake of calcium and vitamin D. Weight Loss: - Lost 6 lbs since September, currently weighing 168 lbs. - Actively trying to lose weight through natural methods. Right Foot Callus: - Painful callus on the right foot, likely due to prolonged standing (up to 12 hours/day). - Previously evaluated by Podiatry - denies signs of infection. MEDICATIONS: Current Outpatient Medications Medication Sig pantoprazole DR (PROTONIX) 40 mg tablet Take 1 tablet by mouth once daily. benazepril (LOTENSIN) 20 mg tablet Take 1 tablet by mouth once daily. hydroCHLOROthiazide 25 mg tablet Take 1 tablet by mouth once daily. metFORMIN (GLUCOPHAGE) 500 mg tablet Take 1 tablet by mouth daily with breakfast. rosuvastatin (CRESTOR) 5 mg tablet Take 1 tablet by mouth once daily. multivitamin (DAILY VITAMIN ORAL) Take by mouth once daily. calcium phosphate dibas/vit D3 (VITAMIN D, WITH CALCIUM, ORAL) Take by mouth. blood sugar diagnostic (BLOOD GLUCOSE TEST) test strip Test blood sugar(s) 1 times daily. Dx: Type 2 DM - Controlled E11.9 Insulin: No No current facility-administered medications for this visit. ALLERGIES: ALLERGIES No Known Allergies PAST MEDICAL HISTORY Diagnosis Date Acute gastritis DM (diabetes mellitus) (HCC) GERD (gastroesophageal reflux disease) Hiatal hernia HLD (hyperlipidemia) HTN (hypertension) PAST SURGICAL HISTORY Procedure Laterality Date CHOLECYSTECTOMY N/A done when she was 23 COLONOSCOPY 01/13/2023 EGD W/O [facility] SPEC VARICIES INJ unsure of year EGD W/[facility] SPEC VARICIES INJ 05/19/2022 TOTAL ABDOMINAL HYSTERECT W/WO RMVL TUBE OVARY N/A 10/2017 for abnormal bleeding. no cancer VAGINAL HYSTERECTOMY FAMILY HISTORY Problem Relation Age of Onset Hypertension Mother Dementia Father Colon Cancer No Family History Social History Tobacco Use Smoking status: Never Smokeless tobacco: Never Vaping Use Vaping status: Never Used Substance Use Topics Alcohol use: No Drug use: No Reviewed current medications, allergies, past medical history, surgical history, family history and social history today. REVIEW OF SYSTEMS Cardiovascular: (-) lower extremity swelling Gastrointestinal: (-) vomiting Genitourinary: (-) polyuria Skin: (+) right foot callus soreness Neurological: (-) dizziness, (-) paresthesias Endocrine: (-) polydipsia HEALTH MAINTENANCE: Reviewed health maintenance issues today and recommended the following in detail. BP Controlled (<130/80) Never done Urine Albumin:Creatinine Ratio due on 03/22/2025 LDL Cholesterol due on 03/22/2025 Mammogram Screening due on 06/11/2025 LAB REVIEWED: Labs: (September) - A1C: 5.6 - Kidney function: stable - B12: normal - Magnesium: normal Tests: - Stomach emptying study Imaging: - Bone density test: Osteopenia VITALS: BP 134/82 Pulse 62 Wt 76.2 kg (168 lb) SpO2 97% BMI 31.74 kg/m? Last 4 Encounter Wt Readings: Date: Wt: 03/24/2025 76.2 kg (168 lb) 03/11/2025 78 kg (172 lb) 01/03/2025 75.8 kg (167 lb) 09/23/2024 79.2 kg (174 lb 9.7 oz) PHYSICAL EXAMINATION: GENERAL: NAD, alert and oriented. SKIN: Unremarkable, no rash or skin lesions. NECK: Supple, no lymphadenopathy, normal thyroid, no carotid bruits. LUNGS: Clear to auscultation bilaterally, no wheezes/rhonchi/rales. HEART: Regular rate and rhythm, no murmurs. No ectopy. EXTREMITIES: Normal, no deformities, no skin discoloration, no edema. Callus noted on right foot. NEURO: Awake, alert and oriented x3, cranial nerves II-XII grossly intact, normal gait, no involuntary motions. ASSESSMENT AND PLAN 1. Hypertension, essential (I10) - Blood pressure well-controlled on current regimen of benazepril and hydrochlorothiazide. - Continue current medications. 2. Hyperlipidemia, mixed (E78.2) - Clinically stable on rosuvastatin. - Ordered lipid panel. 3. GERD without esoph (more content not included)... [facility] 03-24-2025 History of Present illness Narrative Traci is a 65-year-old female with a history of DM, HTN, hyperlipidemia, GERD, and osteopenia, presenting for a follow-up visit. HPI Diabetes Mellitus: - No recent episodes of hyperglycemia or hypoglycemia. - Monitors blood glucose occasionally; recent fasting glucose readings around 92 mg/dL. - Denies polyuria, polydipsia, or paresthesia in extremities. Hypertension: - Well-controlled with benazepril and HCTZ. - Recent BP readin/82 mmHg. Hyperlipidemia: - Managed with rosuvastatin; no reported side effects. GERD: - Managed with pantoprazole; no reported side effects. - Recent episodes of emesis have resolved; last episode occurred after a cruise. - Undergoing evaluation by a department of natural resources officer; scheduled for a barium swallow study. Osteopenia: - Diagnosed approximately one year ago. - Encouraged to maintain an active lifestyle and ensure adequate intake of calcium and vitamin D. Weight Loss: - Lost 6 lbs since September, currently weighing 168 lbs. - Actively trying to lose weight through natural methods. Right Foot Callus: - Painful callus on the right foot, likely due to prolonged standing (up to 12 hours/day). - Previously evaluated by Podiatry - denies signs of infection. MEDICATIONS: Current Outpatient Medications Medication Sig pantoprazole DR (PROTONIX) 40 mg tablet Take 1 tablet by mouth once daily. benazepril (LOTENSIN) 20 mg tablet Take 1 tablet by mouth once daily. hydroCHLOROthiazide 25 mg tablet Take 1 tablet by mouth once daily. metFORMIN (GLUCOPHAGE) 500 mg tablet Take 1 tablet by mouth daily with breakfast. rosuvastatin (CRESTOR) 5 mg tablet Take 1 tablet by mouth once daily. multivitamin (DAILY VITAMIN ORAL) Take by mouth once daily. calcium phosphate dibas/vit D3 (VITAMIN D, WITH CALCIUM, ORAL) Take by mouth. blood sugar diagnostic (BLOOD GLUCOSE TEST) test strip Test blood sugar(s) 1 times daily. Dx: Type 2 DM - Controlled E11.9 Insulin: No No current facility-administered medications for this visit. ALLERGIES: ALLERGIES No Known Allergies PAST MEDICAL HISTORY Diagnosis Date Acute gastritis DM (diabetes mellitus) (HCC) GERD (gastroesophageal reflux disease) Hiatal hernia HLD (hyperlipidemia) HTN (hypertension) PAST SURGICAL HISTORY Procedure Laterality Date CHOLECYSTECTOMY N/A done when she was 23 COLONOSCOPY 01/13/2023 EGD [facility] SPEC VARICIES INJ unsure of year EGD [facility] SPEC VARICIES INJ 05/19/2022 TOTAL ABDOMINAL HYSTERECT W/WO RMVL TUBE OVARY N/A 10/2017 for abnormal bleeding. no cancer VAGINAL HYSTERECTOMY FAMILY HISTORY Problem Relation Age of Onset Hypertension Mother Dementia Father Colon Cancer No Family History Social History Tobacco Use Smoking status: Never Smokeless tobacco: Never Vaping Use Vaping status: Never Used Substance Use Topics Alcohol use: No Drug use: No Reviewed current medications, allergies, past medical history, surgical history, family history and social history today. REVIEW OF SYSTEMS Cardiovascular: (-) lower extremity swelling Gastrointestinal: (-) vomiting Genitourinary: (-) polyuria Skin: (+) right foot callus soreness Neurological: (-) dizziness, (-) paresthesias Endocrine: (-) polydipsia HEALTH MAINTENANCE: Reviewed health maintenance issues today and recommended the following in detail. BP Controlled (<130/80) Never done Urine Albumin:Creatinine Ratio due on 03/22/2025 LDL Cholesterol due on 03/22/2025 Mammogram Screening due on 06/11/2025 LAB REVIEWED: Labs: (September) - A1C: 5.6 - Kidney function: stable - B12: normal - Magnesium: normal Tests: - Stomach emptying study Imaging: - Bone density test: Osteopenia VITALS: BP 134/82 Pulse 62 Wt 76.2 kg (168 lb) SpO2 97% BMI 31.74 kg/m Last 4 Encounter Wt Readings: Date: Wt: 03/24/2025 76.2 kg (168 lb) 03/11/2025 78 kg (172 lb) 01/03/2025 75.8 kg (167 lb) 09/23/2024 79.2 kg (174 lb 9.7 oz) PHYSICAL EXAMINATION: GENERAL: NAD, alert and oriented. SKIN: Unremarkable, no rash or skin lesions. NECK: Supple, no lymphadenopathy, normal thyroid, no carotid bruits. LUNGS: Clear to auscultation bilaterally, no wheezes/rhonchi/rales. HEART: Regular rate and rhythm, no murmurs. No ectopy. EXTREMITIES: Normal, no deformities, no skin discoloration, no edema. Callus noted on right foot. NEURO: Awake, alert and oriented x3, cranial nerves II-XII grossly intact, normal gait, no involuntary motions. ASSESSMENT AND PLAN 1. Hypertension, essential (I10) - Blood pressure well-controlled on current regimen of benazepril and hydrochlorothiazide. - Continue current medications. 2. Hyperlipidemia, mixed (E78.2) - Clinically stable on rosuvastatin. - Ordered lipid panel. 3. GERD without esophagitis (K21.9) - No recent episodes of emesis; managed with pantoprazole without side effects. - Continue pantoprazole. - Follow-up with gastroenterology for further evaluation, including barium swallow study. 4. Stage 3 chronic kidney disease, unspecified whether stage 3a or 3b CKD (HCC) (N18.30) - Renal function stable based on recent labs. - Ordered CMP to monitor kidney function. 5. Controlled type 2 diabetes mellitus without complication, unspecified whether parts counterman insulin use (HCC) (E11.9) - Blood glucose levels stable, with recent A1c at 5.6%. - No polyuria, polydipsia, or paresthesia reported. - Ordered A1c and urine microalbumin. 6. Osteopenia, unspecified location (M85.80) - Last DEXA scan performed approximately one year ago. - Advised to maintain physical activity and ensure adequate dietary intake of calcium and vitamin D. - Plan to repeat DEXA scan in one year. 7. Obesity, Class I, BMI 30-34.9 (E66.811) - Weight decreased by 6 lbs since September. - Encouraged continued weight management through diet and exercise. 8. Callus (L84) - Callus on right foot, no signs of infection. - Referral to Dr. Pate, DPM, for evaluation and management. 9. Encounter for screening mammogram for breast cancer (Z12.31) - Ordered screening mammogram to be performed after June 11. (See patient after visit summary for additional instructions to patient) Jose Bullard MD Recording using [employer] software for draft documentation of the visit was discussed with the patient/authorized auto claim representative; all questions welcomed and answered. Patient/authorized auto claim representative agreed to proceed documented in this encounter [facility] 03-21-2025 History of Present illness Narrative RADIOLOGY SERVICE PROGRESS NOTE SERVICE DATE: 03/21/2025 SERVICE TIME: 11:45 AM PATIENT IDENTITY VERIFICATION COMPLETED USING TWO (2) STANDARD IDENTIFIERS: Name and Date of confirmed by patient verbally FALL SCREENING: Has the patient had 2 falls in the last year or 1 fall with injury or currently using an Ambulatory Assistive Device (Walker, Cane, Wheelchair, Crutches, etc.)? No PATIENT GENDER DATA: .female : No ALLERGIES: Reviewed and unchanged MEDICATIONS REVIEWED: No PATIENT RELEVANT IMPLANT DATA REVIEWED: Not Applicable PATIENT PRESENTS WITH AN IMPLANTABLE OR ATTACHED REPEATER OPERATOR: n/a CREATININE: Creatinine Date Value Ref Range Status 09/30/2024 1.14 (H) 0.58 - 0.96 mg/dL Final 03/22/2024 1.05 (H) 0.58 - 0.96 mg/dL Final 11/17/2023 1.13 (H) 0.58 - 0.96 mg/dL Final Estimated Glomerular Filtration Rate Date Value Ref Range Status 09/30/2024 55 (L) >=60 mL/min/1.73m Final Comment: Estimated Glomerular Filtration Rate (eGFR) is calculated using the 2020 CKD-EPI creatinine equation. This equation utilizes serum creatinine, sex, and age as parameters. The creatinine assay has traceable calibration to isotope dilution-mass spectrometry. Refer to KDIGO guidelines for clinical interpretation. In patients with unstable renal function, e.g. those with acute kidney injury, the eGFR may not accurately reflect actual GFR. eGFR- Date Value Ref Range Status 05/31/2021 >60 Final P.O.C.T. RESULTS: N/A March 21, [address] PERFORMED: No IV SITE: NM only - not applicable, oral or physician administered agents given to patient POST EXAM PIV STATUS: Not applicable PROCEDURE TYPE: NM GET: 1.17 mCi Tc99m SULFUR COLLOID was administered orally via 3 ounces of egg beaters, 1 1/2 pieces of toast, 3/4 ounce of jelly and 6 ounces of water orally. ADMINISTRATION TIME: 11:55 PATIENT DISCHARGED TO: Ambulatory patient, left [place] department area. Is this a therapy: No A Diagnostic radioactive procedure has taken place, with no further precautions necessary other than routine body substance precautions. More information regarding radiation safety can be found using this link: [email or web address] %[email or web address] SIGNATURE: TITA Joseph) PATIENT NAME: Susan Bobby DATE: March 21, 2025 TIME: 2:38 PM PAGER/CONTACT #: documented in this encounter [facility] 03-21-2025 Note HNO ID: [id number] Author: ALYX READ RT(R) Service: Nuclear Medicine Author Type: Technologist Type: Progress Notes Filed: 03/21/2025 14:40 Note Text: RADIOLOGY SERVICE PROGRESS NOTE SERVICE DATE: 03/21/2025 SERVICE TIME: 11:45 AM PATIENT IDENTITY VERIFICATION COMPLETED USING TWO (2) STANDARD IDENTIFIERS: Name and Date of confirmed by patient verbally FALL SCREENING: Has the patient had 2 falls in the last year or 1 fall with injury or currently using an Ambulatory Assistive Device (Walker, Cane, Wheelchair, Crutches, etc.)? No PATIENT GENDER DATA: .female : No ALLERGIES: Reviewed and unchanged MEDICATIONS REVIEWED: No PATIENT RELEVANT IMPLANT DATA REVIEWED: Not Applicable PATIENT PRESENTS WITH AN IMPLANTABLE OR ATTACHED REPEATER OPERATOR: n/a CREATININE: Creatinine Date Value Ref Range Status 09/30/2024 1.14 (H) 0.58 - 0.96 mg/dL Final 03/22/2024 1.05 (H) 0.58 - 0.96 mg/dL Final 11/17/2023 1.13 (H) 0.58 - 0.96 mg/dL Final Estimated Glomerular Filtration Rate Date Value Ref Range Status 09/30/2024 55 (L) >=60 mL/min/1.73m? Final Comment: Estimated Glomerular Filtration Rate (eGFR) is calculated using the 2020 CKD-EPI creatinine equation. This equation utilizes serum creatinine, sex, and age as parameters. The creatinine assay has traceable calibration to isotope dilution-mass spectrometry. Refer to KDIGO guidelines for clinical interpretation. In patients with unstable renal function, e.g. those with acute kidney injury, the eGFR may not accurately reflect actual GFR. eGFR- Date Value Ref Range Status 05/31/2021 >60 Final P.O.C.T. RESULTS: N/A March 21, [address] PERFORMED: No IV SITE: NM only - not applicable, oral or physician administered agents given to patient POST EXAM PIV STATUS: Not applicable PROCEDURE TYPE: NM GET: 1.17 mCi Tc99m SULFUR COLLOID was administered orally via 3 ounces of egg beaters, 1 1/2 pieces of toast, 3/4 ounce of jelly and 6 ounces of water orally. ADMINISTRATION TIME: 11:55 PATIENT DISCHARGED TO: Ambulatory patient, left [place] department area. Is this a therapy: No A Diagnostic radioactive procedure has taken place, with no further precautions necessary other than routine body substance precautions. More information regarding radiation safety can be found using this link: [email or web address] 20Diagnostic%20Nuclear%20Medicine% 20Procedures.[email or web address] SIGNATURE: RT Opal(R) PATIENT NAME: Susan Bobby DATE: March 21, 2025 TIME: 2:38 PM PAGER/CONTACT #: [facility] 03-11-2025 Note HNO ID: [id number] Author: KYLE ALEXANDRA APRN.[employer] Service: ? Author Type: Nurse Practitioner Type: Progress Notes Filed: 03/11/2025 14:38 Note Text: CHIEF COMPLAINT: Patient presents with: Vomiting: ER 12/29/24. Severe acid reflux since the age of 20. Gets to the point that she vomits. Pantoprazole is sometimes helpful This consult was requested by Jose Bullard MD for an opinion regarding GERD, vomiting. My final recommendations will be communicated to the requesting health care provider by way of the shared medical record for internal providers or letter via the [employer] for external providers. HPI: Susan Bobby is a 65 year old female with hx of DMII, GERD, HTN, HLD, hiatal hernia who presents for Vomiting (ER 12/29/24. Severe acid reflux since the age of 20. Gets to the point that she vomits. Pantoprazole is sometimes helpful). She has had longstanding GERD since she was a teenager. She will have issues with dysphagia to solids, and it will trigger her to vomit. She has symptoms at night. (+) early satiety She has GERD and heartburn daily despite pantoprazole (she has only been using it every other day). She will use Tums PRN She has been on prilosec in the past. No caffeine, NSAID use. Recent CT a/p negative EGD 07/2024 showed mod/large hiatal hernia, antral erythema Record Review: [facility] / Outside records reviewed. EGD 08/07/24: Impression: - Normal first portion of the duodenum and second portion of the duodenum. - Erythematous mucosa in the antrum. Biopsied. - Medium-sized hiatal hernia. - Z-line irregular, 35 cm from the incisors. Biopsied. FINAL DIAGNOSIS A. Stomach, biopsy: - Fundic mucosa with mild chronic inactive gastritis. - See comment. B. Esophagogastric junction, biopsy: - Mildly reactive squamous mucosa. - No evidence of intestinal metaplasia or dysplasia. Addendum H. pylori immunostain performed on the stomach biopsy (part A) to evaluate the chronic gastritis is negative for organisms. PAST MEDICAL HISTORY Diagnosis Date Acute gastritis DM (diabetes mellitus) (HCC) GERD (gastroesophageal reflux disease) Hiatal hernia HLD (hyperlipidemia) HTN (hypertension) PAST SURGICAL HISTORY Procedure Laterality Date CHOLECYSTECTOMY N/A done when she was 23 COLONOSCOPY 01/13/2023 EGD W/O [facility] SPEC VARICIES INJ unsure of year EGD W/[facility] SPEC VARICIES INJ 05/19/2022 TOTAL ABDOMINAL HYSTERECT W/WO RMVL TUBE OVARY N/A 10/2017 for abnormal bleeding. no cancer VAGINAL HYSTERECTOMY Allergies: ALLERGIES No Known Allergies Medications: gabapentin (NEURONTIN) 300 mg capsule Take 300 mg by mouth daily at bedtime. pantoprazole DR (PROTONIX) 40 mg tablet Take 1 tablet by mouth once daily. benazepril (LOTENSIN) 20 mg tablet Take 1 tablet by mouth once daily. hydroCHLOROthiazide 25 mg tablet Take 1 tablet by mouth once daily. metFORMIN (GLUCOPHAGE) 500 mg tablet Take 1 tablet by mouth daily with breakfast. rosuvastatin (CRESTOR) 5 mg tablet Take 1 tablet by mouth once daily. calcium phosphate dibas/vit D3 (VITAMIN D, WITH CALCIUM, ORAL) Take by mouth. multivitamin (DAILY VITAMIN ORAL) Take by mouth once daily. blood sugar diagnostic (BLOOD GLUCOSE TEST) test strip Test blood sugar(s) 1 times daily. Dx: Type 2 DM - Controlled E11.9 Insulin: No FAMILY HISTORY Problem Relation Age of Onset Hypertension Mother Dementia Father Colon Cancer No Family History Employer And Job Title: None on file Years Of Education Completed: Not specified Marital Status: Social History Tobacco Use Smoking status: Never Smokeless tobacco: Never Vaping Use Vaping status: Never Used Substance Use Topics Alcohol use: No Drug use: No Review of Systems: Review of Systems Gastrointestinal: Positive for abdominal distention. Gas, Heartburn All other systems reviewed and are negative. Are you taking any blood thinners? No Physical Examination: Pulse 78 Ht 5' 1 (1.55m) Wt 172 lb (78.0kg) SpO2 98% BMI 32.52 kg/(m2). Physical Exam Vitals and nursing note reviewed. Constitutional: Appearance: Normal appearance. She is obese. HENT: Head: Normocephalic and atraumatic. Eyes: General: No scleral icterus. Cardiovascular: Rate and Rhythm: Normal rate and regular rhythm. Pulmonary: Breath sounds: Normal breath sounds. Abdominal: General: Abdomen is flat. Bowel sounds are normal. Palpations: Abdomen is soft. Tenderness: There is abdominal tenderness in the epigastric area. There is no guarding or rebound. Skin: General: Skin is warm and dry. Neurological: Mental Status: She is alert and oriented to person, place, and time. Psychiatric: Mood and Affect: Mood normal. Behavior: Behavior normal. Thought Content: Thought content normal. Judgment: Judgment normal. ASSESSMENT: (K21.9) Gastroesophageal reflux disease, unspecified whether esophagitis present (more content not included)... [facility] 01-03-2025 Note HNO ID: [id number] Author: JOSE BULLARD MD Service: ? Author Type: Physician Type: Progress Notes Filed: 01/04/2025 11:51 Note Text: Patient presents with: ER F/U: Flank pain given gabapentin did finally take one last night. Not using oxycodone. Was able to eat some soup today. HPI: Patient presents today for office visit for follow up. Seen in ER in [place] and then twice here. No trauma. Was on a cruise. Started having vomiting. Had ct imaging there and at [facility]. Had multiple episodes of vomiting on the ship and one episode of diarrhea. Pain was in her back. Improved by standing in a showed. Had a low grade temp in [place]. No urinary issues. Biggest issue for all of them was severe pain in back and flank she believes was from vomiting. She is feeling better with her back pain. No radicular symptoms. No urinary or bowel issues. She currently is back to her baseline. Apparently has been having intermittent vomiting issues for some time. Happens in cycles. No bloody or black stools. Had egd in 08/15 Er had referred her back to surgery. I think gi would be more appropriate. Does not use thc. No current etoh. Not a smoker. Is on appi. No chest pain or shortness of breath. MEDICATIONS: Current Outpatient Medications Medication Sig gabapentin (NEURONTIN) 300 mg capsule Take 300 mg by mouth daily at bedtime. pantoprazole DR (PROTONIX) 40 mg tablet Take 1 tablet by mouth once daily. benazepril (LOTENSIN) 20 mg tablet Take 1 tablet by mouth once daily. hydroCHLOROthiazide 25 mg tablet Take 1 tablet by mouth once daily. metFORMIN (GLUCOPHAGE) 500 mg tablet Take 1 tablet by mouth daily with breakfast. rosuvastatin (CRESTOR) 5 mg tablet Take 1 tablet by mouth once daily. calcium phosphate dibas/vit D3 (VITAMIN D, WITH CALCIUM, ORAL) Take by mouth. multivitamin (DAILY VITAMIN ORAL) Take by mouth once daily. blood sugar diagnostic (BLOOD GLUCOSE TEST) test strip Test blood sugar(s) 1 times daily. Dx: Type 2 DM - Controlled E11.9 Insulin: No No current facility-administered medications for this visit. ALLERGIES: ALLERGIES No Known Allergies PAST MEDICAL HISTORY Diagnosis Date Acute gastritis DM (diabetes mellitus) (HCC) GERD (gastroesophageal reflux disease) Hiatal hernia HLD (hyperlipidemia) HTN (hypertension) PAST SURGICAL HISTORY Procedure Laterality Date CHOLECYSTECTOMY N/A done when she was 23 COLONOSCOPY 01/13/2023 EGD [facility] SPEC VARICIES INJ unsure of year EGD W/O [facility] SPEC VARICIES INJ 05/19/2022 TOTAL ABDOMINAL HYSTERECT W/WO RMVL TUBE OVARY N/A 10/2017 for abnormal bleeding. no cancer VAGINAL HYSTERECTOMY FAMILY HISTORY Problem Relation Age of Onset Hypertension Mother Dementia Father Social History Tobacco Use Smoking status: Never Smokeless tobacco: Never Vaping Use Vaping status: Never Used Substance Use Topics Alcohol use: No Drug use: No Reviewed current medications, allergies, past medical history, surgical history, family history and social history today. REVIEW OF SYSTEMS All other reviewed and negative other than HPI. VITALS: BP 122/78 Pulse (!) 54 Temp 36.8 ?C (98.2 ?F) Wt 75.8 kg (167 lb) SpO2 98% BMI 31.55 kg/m? Last 4 Encounter Wt Readings: Date: Wt: 01/03/2025 75.8 kg (167 lb) 09/23/2024 79.2 kg (174 lb 9.7 oz) 08/07/2024 76.2 kg (168 lb) 06/26/2024 76.4 kg (168 lb 6.4 oz) PHYSICAL EXAMINATION: General appearance: Well appearing, alert, in no acute distress, well-hydrated, well nourished. Skin: Skin color, texture, turgor normal, no suspicious rashes or lesions Head: Normocephalic, no masses, lesions, tenderness or abnormalities Lungs: Lungs clear to auscultation. No wheezing, rhonchi, rales Heart: RRR without murmur, gallop, or rubs. No ectopy Abdomen: Normal abdominal exam, Abdomen soft, non-tender. Bowel sounds normal. No masses, organomegaly Extremities: No deformities, edema, skin discoloration, clubbing or cyanosis. Good capillary refill. Musculoskeletal: No joint swelling, deformity, or tenderness Back not tender. ASSESSMENT/PLAN: 1. Cyclical vomiting syndrome not associated with migraine - ICD9: 536.2, ICD10: R11.15 (primary diagnosis) -continue ppi. Red flags for re-assessment reviewed with patient in detail. - CONSULT TO GASTROENTEROLOGY 2. Flank pain - ICD9: 789.09, ICD10: R10.9 - improved. Suspicion was musculoskeletal from vomiting episode. Red flags for re-assessment reviewed with patient in detail. Call if recurs. 3. 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 Jose Bullard MD [facility] 01-03-2025 History of Present illness Narrative Patient presents with: ER F/U: Flank pain given gabapentin did finally take one last night. Not using oxycodone. Was able to eat some soup today. HPI: Patient presents today for office visit for follow up. Seen in ER in [place] and then twice here. No trauma. Was on a cruise. Started having vomiting. Had ct imaging there and at [facility]. Had multiple episodes of vomiting on the ship and one episode of diarrhea. Pain was in her back. Improved by standing in a showed. Had a low grade temp in [place]. No urinary issues. Biggest issue for all of them was severe pain in back and flank she believes was from vomiting. She is feeling better with her back pain. No radicular symptoms. No urinary or bowel issues. She currently is back to her baseline. Apparently has been having intermittent vomiting issues for some time. Happens in cycles. No bloody or black stools. Had egd in 08/15 Er had referred her back to surgery. I think gi would be more appropriate. Does not use thc. No current etoh. Not a smoker. Is on appi. No chest pain or shortness of breath. MEDICATIONS: Current Outpatient Medications Medication Sig gabapentin (NEURONTIN) 300 mg capsule Take 300 mg by mouth daily at bedtime. pantoprazole DR (PROTONIX) 40 mg tablet Take 1 tablet by mouth once daily. benazepril (LOTENSIN) 20 mg tablet Take 1 tablet by mouth once daily. hydroCHLOROthiazide 25 mg tablet Take 1 tablet by mouth once daily. metFORMIN (GLUCOPHAGE) 500 mg tablet Take 1 tablet by mouth daily with breakfast. rosuvastatin (CRESTOR) 5 mg tablet Take 1 tablet by mouth once daily. calcium phosphate dibas/vit D3 (VITAMIN D, WITH CALCIUM, ORAL) Take by mouth. multivitamin (DAILY VITAMIN ORAL) Take by mouth once daily. blood sugar diagnostic (BLOOD GLUCOSE TEST) test strip Test blood sugar(s) 1 times daily. Dx: Type 2 DM - Controlled E11.9 Insulin: No No current facility-administered medications for this visit. ALLERGIES: ALLERGIES No Known Allergies PAST MEDICAL HISTORY Diagnosis Date Acute gastritis DM (diabetes mellitus) (HCC) GERD (gastroesophageal reflux disease) Hiatal hernia HLD (hyperlipidemia) HTN (hypertension) PAST SURGICAL HISTORY Procedure Laterality Date CHOLECYSTECTOMY N/A done when she was 23 COLONOSCOPY 01/13/2023 EGD W/O [facility] SPEC VARICIES INJ unsure of year EGD W/O [facility] SPEC VARICIES INJ 05/19/2022 TOTAL ABDOMINAL HYSTERECT W/WO RMVL TUBE OVARY N/A 10/2017 for abnormal bleeding. no cancer VAGINAL HYSTERECTOMY FAMILY HISTORY Problem Relation Age of Onset Hypertension Mother Dementia Father Social History Tobacco Use Smoking status: Never Smokeless tobacco: Never Vaping Use Vaping status: Never Used Substance Use Topics Alcohol use: No Drug use: No Reviewed current medications, allergies, past medical history, surgical history, family history and social history today. REVIEW OF SYSTEMS All other reviewed and negative other than HPI. VITALS: BP 122/78 Pulse (!) 54 Temp 36.8 C (98.2 F) Wt 75.8 kg (167 lb) SpO2 98% BMI 31.55 kg/m Last 4 Encounter Wt Readings: Date: Wt: 01/03/2025 75.8 kg (167 lb) 09/23/2024 79.2 kg (174 lb 9.7 oz) 08/07/2024 76.2 kg (168 lb) 06/26/2024 76.4 kg (168 lb 6.4 oz) PHYSICAL EXAMINATION: General appearance: Well appearing, alert, in no acute distress, well-hydrated, well nourished. Skin: Skin color, texture, turgor normal, no suspicious rashes or lesions Head: Normocephalic, no masses, lesions, tenderness or abnormalities Lungs: Lungs clear to auscultation. No wheezing, rhonchi, rales Heart: RRR without murmur, gallop, or rubs. No ectopy Abdomen: Normal abdominal exam, Abdomen soft, non-tender. Bowel sounds normal. No masses, organomegaly Extremities: No deformities, edema, skin discoloration, clubbing or cyanosis. Good capillary refill. Musculoskeletal: No joint swelling, deformity, or tenderness Back not tender. ASSESSMENT/PLAN: 1. Cyclical vomiting syndrome not associated with migraine - ICD9: 536.2, ICD10: R11.15 (primary diagnosis) -continue ppi. Red flags for re-assessment reviewed with patient in detail. - CONSULT TO GASTROENTEROLOGY 2. Flank pain - ICD9: 789.09, ICD10: R10.9 - improved. Suspicion was musculoskeletal from vomiting episode. Red flags for re-assessment reviewed with patient in detail. Call if recurs. 3. Controlled type 2 diabetes mellitus without complication, unspecified whether half-way insulin use (HCC) - ICD9: 250.00, ICD10: E11.9 - continue meds. Jose Bullard MD documented in this encounter [facility] 01-01-2025 Telephone encounter Note Patient returned call and went over notes below, scheduled for appt on Monday at 220 pm with PCP. [facility] 01-01-2025 Miscellaneous Notes Patient returned call and went over notes below, scheduled for appt on Monday at 220 pm with PCP. ER reports from [facility] are now also scanned into chart. Attempted to reach patient and left message to call and speak with nurse so we can set up a visit for her. Dr Bullard has a spot on Monday that I have tried to hold for her at 2:20 if it is still available. Received a page from the [place] ED regarding update on patient's plan of care. She was referred to the [place] ER for intractable left flank pain that radiated to mid abdomen. Per the ED physician, this was her second ED visit over the last week and previously seen in [facility]. He said they did a CTA spine scan which was negative for spinal infarct; other labs reportedly negative. He says they considered admitting her for intractable pain, but she responded well to gabapentin, opiod, valium. Did not do MRI since she was no longer in pain. Recommended outpatient follow-up with PCP. If presents again, could admit for intractable pain although didn't seem necessary at that time. I said I would relay message to PCP. Dr. Rashmi Avila DO documented in this encounter [facility] 01-01-2025 Telephone encounter Note ER reports from [facility] are now also scanned into chart. Attempted to reach patient and left message to call and speak with nurse so we can set up a visit for her. Dr Bullard has a spot on Monday that I have tried to hold for her at 2:20 if it is still available. [facility] 12-31-2024 Telephone encounter Note Received a page from the [place] ED regarding update on patient's plan of care. She was referred to the [place] ER for intractable left flank pain that radiated to mid abdomen. Per the ED physician, this was her second ED visit over the last week and previously seen in [facility]. He said they did a CTA spine scan which was negative for spinal infarct; other labs reportedly negative. He says they considered admitting her for intractable pain, but she responded well to gabapentin, opiod, valium. Did not do MRI since she was no longer in pain. Recommended outpatient follow-up with PCP. If presents again, could admit for intractable pain although didn't seem necessary at that time. I said I would relay message to PCP. Dr. Rashmi Avila DO [facility] Work Phone: 12-31-2024 Radiology Diagnostic study note [facility] [address] [place], [place] [address] CTA Chest W/WO Contrast MR#: [id number] Acct: [id number] Name: SUSAN BOBBY Rep #: [id number] F 64 From: Wesley Alejandra DO PCP: Dr. Jose Bullard MD Status: REG E R Study:CTA Chest W/WO Contrast Date of Exam: 12/31/24 Exam# [id number] Ordering Dr: Carlos A Velez DO PROCEDURE: CTA chest REASON FOR EXAM: Pain TECHNIQUE: Multiple contiguous axial images of the chest were obtained after the administration of intravenous contrast. Two-dimensional and three-dimensional MIP coronal and sagittal reformatted images were reconstructed. Low-dose imaging technique was utilized. COMPARISON: None. FINDINGS: Heart size is within normal limits. No significant pericardial effusion or coronary artery calcifications. Normal caliber thoracic aorta. Normal caliber pulmonary arteries without filling defects. No suspicious adenopathy. Small hiatal hernia. Possible punctate bilateral renal calculi versus contrast. Superficial soft tissues are within normal limits. Central airways are patent. Mild bibasilar atelectasis. No patchy infiltrates,pleural effusion or pneumothorax. 3 mm subpleural nodule in the anterior right upper lobe. No pulmonary mass. No acute osseous abnormality. Mild degenerative changes of the spine. CT/CTA Chest W/WO Contrast IMPRESSION: 1. No acute process. 2. Punctate subpleural nodule in the right upper lobe measuring 3 mm[address] follow-up can be performed if the patient has clinical risk factors per Fleischner criteria. One or more dose reduction techniques were used (e.g., Automated exposure control, adjustment of the mA and/or kV according to patient size, use of iterative reconstruction technique). Reading Location: [facility] CC: Dr. Carlos A Velez DO; Dr. Jose Bullard MD ~ Physical Testing Supervisor: Signed [facility] 12-31-2024 Note HNO ID: [id number] Author: KYLE WALKER MA Service: ? Author Type: Manager Medical Type: Progress Notes Filed: 12/31/2024 15:32 Note Text: [facility], Ambulatory Surgery [facility] and [facility] Emergency Response Form. NOT TO BE USED AT [facility] Complete this report when the Emergency Medical Response is activated (911 calls/EmergencyTransport to the ED) or when a Code Sheet is utilized in the care of a patient (i.e., ASC) Date of the Event:12/31/24 Time of the Event:3:09 pm Was emergency response activated? (Local EMS/Emergency Department) YES Location of the Incident: [facility] ([facility]) (Must provide Value) Reason/Chief Complaint for Emergency Call (Check all that apply): Pain.Locationleft flank Typeintractable Durration3 days (Must provide Value) CPR Initiated-Chest Compressions and/or Rescue Breathing Provided: NO (Must provide value) Facility AED Used-Automatic External Defibrillator: NO (Must provide value) EMS AED Used-Automatic External Defibrillator: NO (Must provide value) Prior to EMS arrival, was any treatment administered? NO Patient Disposition: Transferred to Hospital ED Tire Room Supervisor information: Name of Provider- Kyle Walker [facility] 12-31-2024 History of Present illness Narrative [facility], [facility] Emergency Response Form. NOT TO BE USED AT [facility] Complete this report when the Emergency Medical Response is activated (911 calls/EmergencyTransport to the ED) or when a Code Sheet is utilized in the care of a patient (i.e., ASC) Date of the Event:12/31/24 Time of the Event:3:09 pm Was emergency response activated? (Local EMS/Emergency Department) YES Location of the Incident: [facility] ([facility]) (Must provide Value) Reason/Chief Complaint for Emergency Call (Check all that apply): Pain.Locationleft flank Typeintractable Durration3 days (Must provide Value) CPR Initiated-Chest Compressions and/or Rescue Breathing Provided: NO (Must provide value) Facility AED Used-Automatic External Defibrillator: NO (Must provide value) EMS AED Used-Automatic External Defibrillator: NO (Must provide value) Prior to EMS arrival, was any treatment administered? NO Patient Disposition: Transferred to Hospital ED Tire Room Supervisor information: Name of Provider- Kyle Walker This is a 64 year old female who presents today with: No chief complaint on file. HISTORY OF PRESENT ILLNESS: Susan Bobby is a 64 year old female. No chief complaint on file. ER follow up for abd/ back pain Left flank pain that wraps around to left mid abdomen Low grade temp Writhing in pain, crying Hx of back off and on [id number]. Slept a little last night, no more nausea or vomiting- went to [facility] on a cruise Vomited on the cruise Went to ER in [place] Monday got home and went to ER in [facility]- they gave her Zofran and Morphine X 2 Presents today unable to sit in chair, writhing in pain. Left flank pain 10/10 Dry heaves in office CTA showed hiatal hernia PAST MEDICAL HISTORY: PAST MEDICAL HISTORY Diagnosis Date Acute gastritis DM (diabetes mellitus) (HCC) GERD (gastroesophageal reflux disease) Hiatal hernia HLD (hyperlipidemia) HTN (hypertension) PAST SURGICAL HISTORY Procedure Laterality Date CHOLECYSTECTOMY N/A done when she was 23 COLONOSCOPY 01/13/2023 EGD W/O [facility] SPEC VARICIES INJ unsure of year EGD W/O [facility] SPEC VARICIES INJ 05/19/2022 TOTAL ABDOMINAL HYSTERECT W/WO RMVL TUBE OVARY N/A 10/2017 for abnormal bleeding. no cancer VAGINAL HYSTERECTOMY ALLERGIES Patient has no known allergies. MEDICATIONS Current Outpatient Medications Medication Sig pantoprazole DR (PROTONIX) 40 mg tablet Take 1 tablet by mouth once daily. benazepril (LOTENSIN) 20 mg tablet Take 1 tablet by mouth once daily. hydroCHLOROthiazide 25 mg tablet Take 1 tablet by mouth once daily. metFORMIN (GLUCOPHAGE) 500 mg tablet Take 1 tablet by mouth daily with breakfast. rosuvastatin (CRESTOR) 5 mg tablet Take 1 tablet by mouth once daily. calcium phosphate dibas/vit D3 (VITAMIN D, WITH CALCIUM, ORAL) Take by mouth. multivitamin (DAILY VITAMIN ORAL) Take by mouth once daily. blood sugar diagnostic (BLOOD GLUCOSE TEST) test strip Test blood sugar(s) 1 times daily. Dx: Type 2 DM - Controlled E11.9 Insulin: No No current facility-administered medications for this visit. FAMILY HISTORY Problem Relation Age of Onset Hypertension Mother Dementia Father Social History Tobacco Use Smoking status: Never Smokeless tobacco: Never Vaping Use Vaping status: Never Used Substance Use Topics Alcohol use: No Drug use: No EXAM: Temp 37.5 C (99.5 F) 120/80, 76, 22 PHYSICAL EXAM: Physical Exam Vitals reviewed. Constitutional: Comments: Writhing in pain Cardiovascular: Rate and Rhythm: Normal rate and regular rhythm. Pulses: Normal pulses. Heart sounds: Normal heart sounds. Pulmonary: Effort: Pulmonary effort is normal. Comments: Diminished d/t poor respiratory effort Musculoskeletal: Comments: Left flank pain- negative CVA tenderness Rolling all over the bed Skin: General: Skin is dry. Neurological: Mental Status: She is alert and oriented to person, place, and time. LABS: ASSESSMENT/PLAN: 1. Acute left flank pain - ICD9: 789.09, 338.19, ICD10: R10.9 - defer to ER for intractable pain - report called to Dr. Patel _ with her and will meet her in the ER Discussed treatment plan and patient voices understanding. Patient's questions answered appropriately. Medications and potential side effects were discussed and patient voices understanding. Return to the office as scheduled or as needed for worsening/no improvement. Leila Mansfield APRN.CNP documented in this encounter [facility] 12-31-2024 Instructions Leila Mansfield APRN.CNP - 12/31/2024 3:22 PM EDT 1) Defer to ER documented in this encounter [facility] 12-31-2024 Note HNO ID: [id number] Author: LEILA MANSFIELD APRN.CNP Service: ? Author Type: Nurse Practitioner Type: Progress Notes Filed: 12/31/2024 15:28 Note Text: This is a 64 year old female who presents today with: No chief complaint on file. HISTORY OF PRESENT ILLNESS: Susan Bobby is a 64 year old female. No chief complaint on file. ER follow up for abd/ back pain Left flank pain that wraps around to left mid abdomen Low grade temp Writhing in pain, crying Hx of back off and on [id number]. Slept a little last night, no more nausea or vomiting- went to [facility] on a cruise Vomited on the cruise Went to ER in [place] Monday got home and went to ER in [facility]- they gave her Zofran and Morphine X 2 Presents today unable to sit in chair, writhing in pain. Left flank pain 10/10 Dry heaves in office CTA showed hiatal hernia PAST MEDICAL HISTORY: PAST MEDICAL HISTORY Diagnosis Date Acute gastritis DM (diabetes mellitus) (HCC) GERD (gastroesophageal reflux disease) Hiatal hernia HLD (hyperlipidemia) HTN (hypertension) PAST SURGICAL HISTORY Procedure Laterality Date CHOLECYSTECTOMY N/A done when she was 23 COLONOSCOPY 01/13/2023 EGD W/O [facility] SPEC VARICIES INJ unsure of year EGD W/O [facility] SPEC VARICIES INJ 05/19/2022 TOTAL ABDOMINAL HYSTERECT W/WO RMVL TUBE OVARY N/A 10/2017 for abnormal bleeding. no cancer VAGINAL HYSTERECTOMY ALLERGIES Patient has no known allergies. MEDICATIONS Current Outpatient Medications Medication Sig pantoprazole DR (PROTONIX) 40 mg tablet Take 1 tablet by mouth once daily. benazepril (LOTENSIN) 20 mg tablet Take 1 tablet by mouth once daily. hydroCHLOROthiazide 25 mg tablet Take 1 tablet by mouth once daily. metFORMIN (GLUCOPHAGE) 500 mg tablet Take 1 tablet by mouth daily with breakfast. rosuvastatin (CRESTOR) 5 mg tablet Take 1 tablet by mouth once daily. calcium phosphate dibas/vit D3 (VITAMIN D, WITH CALCIUM, ORAL) Take by mouth. multivitamin (DAILY VITAMIN ORAL) Take by mouth once daily. blood sugar diagnostic (BLOOD GLUCOSE TEST) test strip Test blood sugar(s) 1 times daily. Dx: Type 2 DM - Controlled E11.9 Insulin: No No current facility-administered medications for this visit. FAMILY HISTORY Problem Relation Age of Onset Hypertension Mother Dementia Father Social History Tobacco Use Smoking status: Never Smokeless tobacco: Never Vaping Use Vaping status: Never Used Substance Use Topics Alcohol use: No Drug use: No EXAM: Temp 37.5 ?C (99.5 ?F) 120/80, 76, 22 PHYSICAL EXAM: Physical Exam Vitals reviewed. Constitutional: Comments: Writhing in pain Cardiovascular: Rate and Rhythm: Normal rate and regular rhythm. Pulses: Normal pulses. Heart sounds: Normal heart sounds. Pulmonary: Effort: Pulmonary effort is normal. Comments: Diminished d/t poor respiratory effort Musculoskeletal: Comments: Left flank pain- negative CVA tenderness Rolling all over the bed Skin: General: Skin is dry. Neurological: Mental Status: She is alert and oriented to person, place, and time. LABS: ASSESSMENT/PLAN: 1. Acute left flank pain - ICD9: 789.09, 338.19, ICD10: R10.9 - defer to ER for intractable pain - report called to Dr. Patel _ with her and will meet her in the ER Discussed treatment plan and patient voices understanding. Patient's questions answered appropriately. Medications and potential side effects were discussed and patient voices understanding. Return to the office as scheduled or as needed for worsening/no improvement. Leila Mansfield APRN.[facility] 12-31-2024 Telephone encounter Note Patient was seen at [facility] on December 30, 2024 for nausea and vomiting with 5 days of right flank pain. She vomited once after eating a burger. The pain worsened when she got off a cruise in [place] and was seen in the emergency room. Reports having a CT scan negative for kidney stones. She was given Toradol and felt better and flew home to [facility] arriving this morning. She is having severe right flank pain with nausea and vomiting. No chest pain or shortness of breath. No fever or chills. No urinary symptoms. She is afebrile but blood pressure 129/103, 158/82 Heart rate 84, 71 Oxygen saturation 100% to 99%. Patient presents with generalized back pain. Occurred earlier this week and had a workup at another emergency room [id number]. Symptoms flared again today. Appears uncomfortable is rolling around the bed. Vital signs are stable. Normal cardiopulmonary exam. Abdomen soft nontender. No reproducible pain in the back. is massaging her back which seems to help slightly. Upper and lower extremities neurovascularly intact. Pulses symmetrical. CT scan to rule out kidney stones earlier in the week. Ordered CTA to rule out vascular process. CTA was unremarkable. Moderate-sized hiatal hernia but this does not correlate with any of her symptoms. Glucose 122, CO2 20, gap 17. Electrolytes and renal function normal. IV fluids and Toradol, IV morphine x 2, p.o. Valium. Seems to be resting comfortably in the hospital. WBC 8.5, hemoglobin 12.8, hematocrit 38.5, platelet count 214 Neutrophils elevated 86.7, lymphocytes low at 7.2 Sodium 143, potassium 3.6, BUN 13, creatinine 1.2, glucose 122 Calcium 9.5 Urinalysis is normal with 10 hemoglobin and 15 ketones. Protein is high at 15 CTA abdomen and pelvis showed patent a aortoiliac visceral arteries. And moderate size hiatal hernia Patient was given a prescriptions for Valium 5 mg twice daily as needed for muscle spasm [place] 1 tablet every 6 hours for pain for 3 days 10 tablets Zofran 4 mg every 6 hours for needed nausea 10 tablets given [facility] Work Phone: 12-31-2024 Miscellaneous Notes Patient was seen at [facility] on December 30, 2024 for nausea and vomiting with 5 days of right flank pain. She vomited once after eating a burger. The pain worsened when she got off a cruise in [place] and was seen in the emergency room. Reports having a CT scan negative for kidney stones. She was given Toradol and felt better and flew [place] arriving this morning. She is having severe right flank pain with nausea and vomiting. No chest pain or shortness of breath. No fever or chills. No urinary symptoms. She is afebrile but blood pressure 129/103, 158/82 Heart rate 84, 71 Oxygen saturation 100% to 99%. Patient presents with generalized back pain. Occurred earlier this week and had a workup at another emergency room [id number]. Symptoms flared again today. Appears uncomfortable is rolling around the bed. Vital signs are stable. Normal cardiopulmonary exam. Abdomen soft nontender. No reproducible pain in the back. is massaging her back which seems to help slightly. Upper and lower extremities neurovascularly intact. Pulses symmetrical. CT scan to rule out kidney stones earlier in the week. Ordered CTA to rule out vascular process. CTA was unremarkable. Moderate-sized hiatal hernia but this does not correlate with any of her symptoms. Glucose 122, CO2 20, gap 17. Electrolytes and renal function normal. IV fluids and Toradol, IV morphine x 2, p.o. Valium. Seems to be resting comfortably in the hospital. WBC 8.5, hemoglobin 12.8, hematocrit 38.5, platelet count 214 Neutrophils elevated 86.7, lymphocytes low at 7.2 Sodium 143, potassium 3.6, BUN 13, creatinine 1.2, glucose 122 Calcium 9.5 Urinalysis is normal with 10 hemoglobin and 15 ketones. Protein is high at 15 CTA abdomen and pelvis showed patent a aortoiliac visceral arteries. And moderate size hiatal hernia Patient was given a prescriptions for Valium 5 mg twice daily as needed for muscle spasm [place] 1 tablet every 6 hours for pain for 3 days 10 tablets Zofran 4 mg every 6 hours for needed nausea 10 tablets given documented in this encounter [facility] 12-30-2024 Radiology Diagnostic study note [facility] [address] [place] [address] CTA Abd/Pelvis W/WO Contrast MR#: [id number] Acct: [id number] Name: SUSAN BOBBY Rep #: [id number] : 1960 F 64 From: Pinky Larkin MD PCP: Dr. Jose Bullard MD Status: REG E R Study:CTA Abd/Pelvis W/WO Contrast Date of Ex am: 12/30/24 Exam# [id number] Ordering Dr: Kyle Degroot PROCEDURE: CTA ABD/PELVIS W/WO CONTRAST REASON FOR EXAM: 64-year-old female, ABDOMINAL AND FLANK PAIN, nausea and vomiting and back pain. TECHNIQUE: CTA imaging of the abdomen and pelvis with intravenous contrast. 3D reconstructions. IV CONTRAST: Isovue-300 COMPARISON: CT abdomen pelvis 06/04/2024. FINDINGS: Aorta: Abdominal aorta is normal in size. No significant atherosclerotic plaque.No evidence of aneurysm or dissection. Iliac Arteries: Iliac arteries are normal in size with no significant plaque or stenosis. Mild calcific plaque of the bilateral internal iliac arteries. The celiac artery, SMA and LENA are widely patent without focal stenosis. The single bilateral renal arteries are widely patent without focal stenosis or occlusion. Other Findings: The heart is normal in size. Bibasilar atelectasis. The liver is normal in size without arterially enhancing mass. Prior cholecystectomy. No hydronephrosis or nephrolithiasis. Prior hysterectomy. Moderate-sized hiatal hernia. The bowel loops are normal in caliber. Contrast material opacifies the proximal large bowel. No ascites or pneumoperitoneum. Normal appendix. Thoracolumbar spondylosis. CT/CTA Abd/Pelvis W/WO Contrast IMPRESSION: 1. Patent aortoiliac visceral arteries. 2. Moderate size hiatal hernia. One or more dose reduction techniques were used (e.g., Automated exposure control, adjustment of the mA and/or kV according to patient size, use of iterative reconstruction technique). Reading Location: [facility] CC: Dr. Jsoe Bullard MD; YVAN De La Cruz ~ Physical Testing Supervisor: Signed [facility] 09-23-2024 Note HNO ID: [id number] Author: JOSE BULLARD MD Service: ? Author Type: Physician Type: Progress Notes Filed: 09/23/2024 19:23 Note Text: Patient presents with: 6 Month Exam HPI: Patient presents today for office visit for follow up. HTN: Denies chest pain and shortness of breath Denies headaches and dizziness Denies palpitations and syncope Denies edema HLD: No myalgias DM: Monitors sugars occasionally Stable Watches diet Due for eye exam GERD: Symptom controlled Did mention some blood a couple weeks ago with BM when wiping. Appeared to be her hemorrhoids. No gi issues otherwise. Just had colonoscopy last year. Red flags for re-assessment reviewed with patient in detail. MEDICATIONS: Current Outpatient Medications Medication Sig pantoprazole DR (PROTONIX) 40 mg tablet TAKE 1 TABLET BY MOUTH EVERY DAY calcium phosphate dibas/vit D3 (VITAMIN D, WITH CALCIUM, ORAL) Take by mouth. benazepril (LOTENSIN) 20 mg tablet Take 1 tablet by mouth once daily. hydroCHLOROthiazide 25 mg tablet Take 1 tablet by mouth once daily. metFORMIN (GLUCOPHAGE) 500 mg tablet Take 1 tablet by mouth daily with breakfast. rosuvastatin (CRESTOR) 5 mg tablet Take 1 tablet by mouth once daily. multivitamin (DAILY VITAMIN ORAL) Take by mouth once daily. blood sugar diagnostic (BLOOD GLUCOSE TEST) test strip Test blood sugar(s) 1 times daily. Dx: Type 2 DM - Controlled E11.9 Insulin: No No current facility-administered medications for this visit. ALLERGIES: ALLERGIES No Known Allergies PAST MEDICAL HISTORY Diagnosis Date Acute gastritis DM (diabetes mellitus) (HCC) GERD (gastroesophageal reflux disease) Hiatal hernia HLD (hyperlipidemia) HTN (hypertension) PAST SURGICAL HISTORY Procedure Laterality Date CHOLECYSTECTOMY N/A done when she was 23 COLONOSCOPY 01/13/2023 EGD W/O [facility] SPEC VARICIES INJ unsure of year EGD W/O BRSH SPEC VARICIES INJ 05/19/2022 TOTAL ABDOMINAL HYSTERECT W/WO RMVL TUBE OVARY N/A 10/2017 for abnormal bleeding. no cancer VAGINAL HYSTERECTOMY FAMILY HISTORY Problem Relation Age of Onset Hypertension Mother Dementia Father Social History Tobacco Use Smoking status: Never Smokeless tobacco: Never Vaping Use Vaping status: Never Used Substance Use Topics Alcohol use: No Drug use: No Reviewed current medications, allergies, past medical history, surgical history, family history and social history today. REVIEW OF SYSTEMS All other reviewed and negative other than HPI. HEALTH MAINTENANCE: Reviewed health maintenance issues today and recommended the following in detail. Depression Screening Never done Anxiety Screening Never done Dilated Retinal Exam -sees them this weeks. Diabetic Foot Exam due on 05/15/2024 Influenza Vaccine(1) due on 06/23/2024 Covid-19 Vaccine( season) due on 06/23/2024 HbA1C due on 09/21/2024 VITALS: BP 126/76 Pulse 60 Ht 154.9 cm (5' 1) Wt 79.2 kg (174 lb 9.7 oz) SpO2 98% BMI 32.99 kg/m? Last 4 Encounter Wt Readings: Date: Wt: 08/07/2024 76.2 kg (168 lb) 06/26/2024 76.4 kg (168 lb 6.4 oz) 03/22/2024 77.6 kg (171 lb) 11/17/2023 75.8 kg (167 lb) PHYSICAL EXAMINATION: General appearance: Well appearing, alert, in no acute distress, well-hydrated, well nourished. Skin: Skin color, texture, turgor normal, no suspicious rashes or lesions Head: Normocephalic, no masses, lesions, tenderness or abnormalities Lungs: Lungs clear to auscultation. No wheezing, rhonchi, rales Heart: RRR without murmur, gallop, or rubs. No ectopy Abdomen: Normal abdominal exam, Abdomen soft, non-tender. Bowel sounds normal. No masses, organomegaly Extremities: No deformities, edema, skin discoloration, clubbing or cyanosis. Good capillary refill. Feet:Shoes and socks removed, No deformities, ulcers, calluses, normal distal pulses, and sensitive to 10 gm monofilament ASSESSMENT/PLAN: 1. Hypertension, essential - ICD9: 401.9, ICD10: I10 (primary diagnosis) - Controlled - Continue current medications 2. Encounter for immunization - ICD9: V03.89, ICD10: Z23 - INFLUENZA VACCINE, AGE 6MO-64YR, TRIVALENT (AFLURIA, FLULAVAL, FLUVIRIN, FLUZONE) - Osteogenix-Finicity COVID-19 VACCINE AGE 12+ YR (COMIRNATY) 3. Hyperlipidemia, mixed - ICD9: 272.2, ICD10: E78.2 - Controlled - Continue current medications 4. GERD without esophagitis - ICD9: 530.81, ICD10: K21.9 - stable on meds. 5. Gastritis without bleeding, unspecified chronicity, unspecified gastritis type - ICD9: 535.50, ICD10: K29.70 - stay on ppi 6. Stage 3 chronic kidney disease, unspecified whether stage 3a or 3b CKD (HCC) - ICD9: 585.3, ICD10: N18.30 - follow labs. - BASIC METABOLIC PANEL 7. Controlled type 2 diabetes mellitus without complication, unspecified whether half-way insulin use (HCC) - ICD9: 250.00, ICD10: E11.9 - follow labs. - HEMOGLOBIN A1C 8. Obesity, Class I, BMI 30-34.9 - ICD9: 2 (more content not included)... [facility] 09-23-2024 History of Present illness Narrative Patient presents with: 6 Month Exam HPI: Patient presents today for office visit for follow up. HTN: Denies chest pain and shortness of breath Denies headaches and dizziness Denies palpitations and syncope Denies edema HLD: No myalgias DM: Monitors sugars occasionally Stable Watches diet Due for eye exam GERD: Symptom controlled Did mention some blood a couple weeks ago with BM when wiping. Appeared to be her hemorrhoids. No gi issues otherwise. Just had colonoscopy last year. Red flags for re-assessment reviewed with patient in detail. MEDICATIONS: Current Outpatient Medications Medication Sig pantoprazole DR (PROTONIX) 40 mg tablet TAKE 1 TABLET BY MOUTH EVERY DAY calcium phosphate dibas/vit D3 (VITAMIN D, WITH CALCIUM, ORAL) Take by mouth. benazepril (LOTENSIN) 20 mg tablet Take 1 tablet by mouth once daily. hydroCHLOROthiazide 25 mg tablet Take 1 tablet by mouth once daily. metFORMIN (GLUCOPHAGE) 500 mg tablet Take 1 tablet by mouth daily with breakfast. rosuvastatin (CRESTOR) 5 mg tablet Take 1 tablet by mouth once daily. multivitamin (DAILY VITAMIN ORAL) Take by mouth once daily. blood sugar diagnostic (BLOOD GLUCOSE TEST) test strip Test blood sugar(s) 1 times daily. Dx: Type 2 DM - Controlled E11.9 Insulin: No No current facility-administered medications for this visit. ALLERGIES: ALLERGIES No Known Allergies PAST MEDICAL HISTORY Diagnosis Date Acute gastritis DM (diabetes mellitus) (HCC) GERD (gastroesophageal reflux disease) Hiatal hernia HLD (hyperlipidemia) HTN (hypertension) PAST SURGICAL HISTORY Procedure Laterality Date CHOLECYSTECTOMY N/A done when she was 23 COLONOSCOPY 01/13/2023 EGD W/O [facility] SPEC VARICIES INJ unsure of year EGD W/O [facility] SPEC VARICIES INJ 05/19/2022 TOTAL ABDOMINAL HYSTERECT W/WO RMVL TUBE OVARY N/A 10/2017 for abnormal bleeding. no cancer VAGINAL HYSTERECTOMY FAMILY HISTORY Problem Relation Age of Onset Hypertension Mother Dementia Father Social History Tobacco Use Smoking status: Never Smokeless tobacco: Never Vaping Use Vaping status: Never Used Substance Use Topics Alcohol use: No Drug use: No Reviewed current medications, allergies, past medical history, surgical history, family history and social history today. REVIEW OF SYSTEMS All other reviewed and negative other than HPI. HEALTH MAINTENANCE: Reviewed health maintenance issues today and recommended the following in detail. Depression Screening Never done Anxiety Screening Never done Dilated Retinal Exam -sees them this weeks. Diabetic Foot Exam due on 05/15/2024 Influenza Vaccine(1) due on 06/23/2024 Covid-19 Vaccine( season) due on 06/23/2024 HbA1C due on 09/21/2024 VITALS: BP 126/76 Pulse 60 Ht 154.9 cm (5' 1) Wt 79.2 kg (174 lb 9.7 oz) SpO2 98% BMI 32.99 kg/m Last 4 Encounter Wt Readings: Date: Wt: 08/07/2024 76.2 kg (168 lb) 06/26/2024 76.4 kg (168 lb 6.4 oz) 03/22/2024 77.6 kg (171 lb) 11/17/2023 75.8 kg (167 lb) PHYSICAL EXAMINATION: General appearance: Well appearing, alert, in no acute distress, well-hydrated, well nourished. Skin: Skin color, texture, turgor normal, no suspicious rashes or lesions Head: Normocephalic, no masses, lesions, tenderness or abnormalities Lungs: Lungs clear to auscultation. No wheezing, rhonchi, rales Heart: RRR without murmur, gallop, or rubs. No ectopy Abdomen: Normal abdominal exam, Abdomen soft, non-tender. Bowel sounds normal. No masses, organomegaly Extremities: No deformities, edema, skin discoloration, clubbing or cyanosis. Good capillary refill. Feet:Shoes and socks removed, No deformities, ulcers, calluses, normal distal pulses, and sensitive to 10 gm monofilament ASSESSMENT/PLAN: 1. Hypertension, essential - ICD9: 401.9, ICD10: I10 (primary diagnosis) - Controlled - Continue current medications 2. Encounter for immunization - ICD9: V03.89, ICD10: Z23 - INFLUENZA VACCINE, AGE 6MO-64YR, TRIVALENT (AFLURIA, FLULAVAL, FLUVIRIN, FLUZONE) - Osteogenix-Finicity COVID-19 VACCINE AGE 12+ YR (COMIRNATY) 3. Hyperlipidemia, mixed - ICD9: 272.2, ICD10: E78.2 - Controlled - Continue current medications 4. GERD without esophagitis - ICD9: 530.81, ICD10: K21.9 - stable on meds. 5. Gastritis without bleeding, unspecified chronicity, unspecified gastritis type - ICD9: 535.50, ICD10: K29.70 - stay on ppi 6. Stage 3 chronic kidney disease, unspecified whether stage 3a or 3b CKD (HCC) - ICD9: 585.3, ICD10: N18.30 - follow labs. - BASIC METABOLIC PANEL 7. Controlled type 2 diabetes mellitus without complication, unspecified whether parts counterman insulin use (HCC) - ICD9: 250.00, ICD10: E11.9 - follow labs. - HEMOGLOBIN A1C 8. Obesity, Class I, BMI 30-34.9 - ICD9: 278.00, ICD10: E66.811 - stable. 9. Encounter for screening examination for other mental health and behavioral disorders - ICD9: V79.8, ICD10: Z13.39 - ANXIETY SCREENING 10. Screening for depression - ICD9: V79.0, ICD10: Z13.31 - DEPRESSION SCREENING 11. Med monitor Check b12 and mag Jose Bullard MD documented in this encounter [facility] 08-07-2024 Attending History and physical note UPDATED HISTORY AND PHYSICAL EXAMINATION SERVICE DATE: 08/07/2024 SERVICE TIME: 9:30 SENSITIVE EXAMINATION CONSENT: The sensitive examination was discussed with the Patient or Patient's Authorized Poultry Farmer Egg. As applicable, any other physician, advance practice provider, medical student, or other health professional student that will be observing or involved in the sensitive examination for educational or training purposes was discussed with the Patient or Authorized Poultry Farmer Egg. The Patient or Authorized Poultry Farmer Egg has agreed to proceed with the sensitive examination. (Sensitive examination includes inspection and/or palpation of the breasts, pelvis, prostate and anorectal regions) PHYSICAL EXAM MUST BE COMPLETED ON ADMISSION The History and Physical (completed in the past 30 days) has been reviewed and the patient has been examined. The contents accurately reflect the patient's condition with the following additions or revisions since the H&P was completed. Examination indicates no changes. This H&P can be found in the Electronic Medical Record . SIGNATURE: Sussy Reid MD PATIENT NAME: Susan Bobby DATE: August 07, 2024 TIME: 9:30 AM Source Note - Sussy Reid MD - 08/07/2024 10:30 AM EDT Ms. Bobby is a 64 year old female with contributing past medical and surgical history significant for irregular gastroesophgeal junction and moderate sized hiatal hernia with sliding component (EGD 2021), GERD, HTN, HLD, T2DM, s/p cholecystectomy. The patient presents with recurrent epigastric pain after eating . Started protonix in 2021. She was initially taking protonix 40mg daily then transitioned to 40mg every other day when symptoms were controlled. She was seen by Gail Mccain PA-C on 05/31/2022 for follow up after EGD to discuss possible hiatal hernia repair. At that time, she had improved symptoms on protonix and wanted to proceed with medical management and would contact the general surgery office if she had any worsening of symptoms. She reports an increased epigastric pain over the past several months after eating. The episodes of pain are intermittent, and do not occur after every meal. Denies nausea and vomiting. Denies change in bowel habits. Last colonoscopy 01/13/2023 for screening showed non-bleeding external and internal hemorrhoids and one 2-3mm polyp at the splenic flexure that was removed with cold forceps. PAST MEDICAL HISTORY PAST MEDICAL HISTORY No date: Acute gastritis No date: DM (diabetes mellitus) (HCC) No date: GERD (gastroesophageal reflux disease) No date: Hiatal hernia No date: HLD (hyperlipidemia) No date: HTN (hypertension) PAST SURGICAL HISTORY PAST SURGICAL HISTORY No date: CHOLECYSTECTOMY; N/A Comment: done when she was 23 01/13/2023: COLONOSCOPY No date: EGD W/O [facility] SPEC VARICIES INJ Comment: unsure of year 05/19/2022: EGD W/O [facility] SPEC VARICIES INJ Comment: 10/2017: TOTAL ABDOMINAL HYSTERECT W/WO RMVL TUBE OVARY; N/A Comment: for abnormal bleeding. no cancer No date: VAGINAL HYSTERECTOMY FAMILY HISTORY FAMILY HISTORY Problem Relation Age of Onset Hypertension Mother Dementia Father SOCIAL HISTORY Social History Tobacco Use Smoking status: Never Smokeless tobacco: Never Vaping Use Vaping status: Never Used Substance Use Topics Alcohol use: No Drug use: No The patient has the following: Problem List Noted Noted By Resolved Resolved By History of tubal ligation 11/17/2023 Tiffanie Burks MA No Overview Signed 11/17/2023 3:48 PM by Tiffanie Burks MA Comment on above: 1990 Iron deficiency 11/17/2023 Tiffanie Burks MA No Menorrhagia 11/17/2023 Tiffanie Burks MA No Onychomycosis 11/17/2023 Tiffanie Burks MA No Osteopenia 11/17/2023 Tiffanie Burks MA No Postmenopausal bleeding 11/17/2023 Tiffanie Burks MA No Sleep disorder 11/17/2023 Tiffanie Burks MA No Overview Signed 11/17/2023 3:48 PM by Tiffanie Burks MA Comment on above: testosterone normal try exercise- she has noted it better in past with exercise 1985 3rd child- 1988 Stress incontinence in female 11/17/2023 Tiffanie Burks MA No Controlled type 2 diabetes mellitus without complication (HCC) 05/10/2023 Jose Bullard MD No Obesity, Class I, BMI 30-34.9 05/19/2022 Claire Redman MD No CKD (chronic kidney disease) stage 3, GFR 30-59 ml/min ([facility]) 05/13/2022 Jose Bullard MD No Hypertension, essential 12/20/2018 Podlogar, 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 No GERD without esophagitis 12/20/2018 Podlogar, 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 No Hyperlipidemia, mixed 12/20/2018 Podlogar, 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 No Abnormal glucose tolerance test (GTT) 11/17/2023 Tiffanie Burks MA 03/22/2024 Jose Bullard MD Non-smoker 11/17/2023 Tiffanie Burks MA 03/22/2024 Jose Bullard MD Shortness of breath at rest 11/17/2023 Tiffanie Burks MA 03/22/2024 Jose Bullard MD Overview Signed 11/17/2023 3:48 PM by Tiffanie Burks MA Comment on above: awaiting pfts if negative send to cardio Suprapubic pain 11/17/2023 Tiffanie Burks MA 03/22/2024 Jose Bullard MD Overview Signed 11/17/2023 3:48 PM by Tiffanie Burks MA Comment on above: if urine negative do pelvic us Swelling of extremity 11/17/2023 Tiffanie Burks MA 03/22/2024 Jose Bullard MD MEDICATIONS CURRENT MEDICATIONS Current Outpatient Medications Medication Sig Dispense Refill calcium phosphate dibas/vit D3 (VITAMIN D, WITH CALCIUM, ORAL) Take by mouth. benazepril (LOTENSIN) 20 mg tablet Take 1 tablet by mouth once daily. 30 tablet 5 hydroCHLOROthiazide 25 mg tablet Take 1 tablet by mouth once daily. 30 tablet 5 metFORMIN (GLUCOPHAGE) 500 mg tablet Take 1 tablet by mouth daily with breakfast. 30 tablet 5 rosuvastatin (CRESTOR) 5 mg tablet Take 1 tablet by mouth once daily. 30 tablet 5 multivitamin (DAILY VITAMIN ORAL) Take by mouth once daily. blood sugar diagnostic (BLOOD GLUCOSE TEST) test strip Test blood sugar(s) 1 times daily. Dx: Type 2 DM - Controlled E11.9 Insulin: No [address] (PROTONIX) 40 mg tablet Take 1 tablet by mouth once daily. 30 tablet 2 No current facility-administered medications for this visit. CURRENT ALLERGIES ALLERGIES ALLERGIES No Known Allergies REVIEW OF SYSTEMS PAIN ASSESSMENT: Negative for pain, history of chronic pain, or current treatment for a chronic pain condition. GENERAL: No weight loss, malaise or fevers. RESPIRATORY: Negative for cough, hemoptysis, wheezing, dyspnea or shortness of breath. CARDIOVASCULAR: Negative for chest pain, leg swelling, or palpitations. GI: Not currently having abdominal pain but will experience it in the epigastric region. Denies nausea, vomiting, diarrhea, or constipation. PHYSICAL EXAMINATION BP 118/72 Pulse 76 Temp 97.7 Ht 5' 1 (1.55m) Wt 168 lb 6.4 oz (76.4kg) SpO2 97% BMI 31.84 kg/(m^2). General Appearance: Well appearing, alert, in no acute distress, well-hydrated, well nourished. Lungs: Lungs clear to auscultation. No wheezing, rhonchi, rales Heart: RRR without murmur, gallop, or rubs. No ectopy Abdomen: Normal abdominal exam Diagnostic tests reviewed for today's visit: Colonoscopy Report and Pathology 01/13/23 Findings: The perianal and digital rectal examinations were normal. Non-bleeding external and internal hemorrhoids were found. A 2 to 3 mm polyp was found in the splenic flexure. The polyp was sessile. The polyp was removed with a cold biopsy forceps. Resection and retrieval were complete. Verification of patient identification for the specimen was done by the nurse. Estimated blood loss was minimal. Impression: - Non-bleeding external and internal hemorrhoids. - One 2 to 3 mm polyp at the splenic flexure, removed with a cold biopsy forceps. Resected and retrieved. Recommendation: - Discharge patient to home (ambulatory). - Resume previous diet. - Repeat colonoscopy date to be determined after pending pathology results are reviewed for surveillance based on pathology results. - Follow up with Gail Mccain PA-C via televisit for discussion of pathology results and determination of timing of future endoscopies - Patient has a contact number available for emergencies. The signs and symptoms of potential delayed complications were discussed with the patient. Return to normal activities tomorrow. Written discharge instructions were provided to the patient. - Continue present medications. Component FINAL DIAGNOSIS A. Splenic flexure, polyp, biopsy: -Tubular adenoma. EGD Report and Pathology 05/19/2022 From procedure report - A bite block was placed. The upper endoscope was lubricated, carefully inserted in the patient's mouth, advanced into the esophagus. It was then advanced down the esophagus into the stomach, past the pylorus, then into the first and then 2nd and 3rd portion of the duodenum. No masses, polyps, or lesions were noted in the duodenum. The endoscope was then retracted back into the stomach. The stomach appeared normal, but because of the patient's complaint, mucosal biopsies of the antrum were taken for histology and H pylori. Retroflex view into the fundus and body of the stomach revealed no evidence of any masses or polyps. However, the patient was noted to have a moderate-sized hiatal hernia. There was also a sliding component that was noted. The endoscope was retracted back into the esophagus. The sliding component was approximately 3 cm and the GE junction appeared irregular. The mucosal biopsies were taken using cold grasper forceps of the GE junction. There appeared to be [place]-colored mucosal creeping about 1 cm proximal to the GE junction. Mucosal biopsies were taken using cold grasper forceps. Because of patient's complaint of dysphagia, mid esophageal mucosal biopsies were taken using cold grasper forceps. The remainder of the esophagus appeared normal FINAL DIAGNOSIS A. Antrum (stomach), biopsy: -- Antral type gastric mucosa with change of reactive gastropathy and mild chronic gastritis. -- No H. pylori organisms are identified on H&E sections. B. Esophagogastric junction, biopsy: -- Squamous mucosa with change of reflux esophagitis. -- No glandular type mucosa present for evaluation. C. Mid esophagus, biopsy: -- Squamous mucosa with no significant histopathologic abnormalities. Assessment ASSESSMENT Gastritis without bleeding, unspecified chronicity, unspecified gastritis type (primary encounter diagnosis) Hiatal hernia PLAN I have discussed the above with the patient. I have offered EGD, possible biopsies I have explained the procedure to the patient. I have counseled the patient as to the risks of the procedure, including but not limited to: infection, bleeding, injury to any intrabdominal organs such as liver/spleen, perforation of the GI tract, inability to complete the procedure, complications of anesthesia, etc. - the patient understands. The patient wishes to proceed. I have answered all questions to the patient s satisfaction and the patient has no further questions. [facility] 08-07-2024 History and physical note Ms. Bobby is a 64 year old female with contributing past medical and surgical history significant for irregular gastroesophgeal junction and moderate sized hiatal hernia with sliding component (EGD 2021), GERD, HTN, HLD, T2DM, s/p cholecystectomy. The patient presents with recurrent epigastric pain after eating . Started protonix in 2021. She was initially taking protonix 40mg daily then transitioned to 40mg every other day when symptoms were controlled. She was seen by Gail Mccain PA-C on 05/31/2022 for follow up after EGD to discuss possible hiatal hernia repair. At that time, she had improved symptoms on protonix and wanted to proceed with medical management and would contact the general surgery office if she had any worsening of symptoms. She reports an increased epigastric pain over the past several months after eating. The episodes of pain are intermittent, and do not occur after every meal. Denies nausea and vomiting. Denies change in bowel habits. Last colonoscopy 01/13/2023 for screening showed non-bleeding external and internal hemorrhoids and one 2-3mm polyp at the splenic flexure that was removed with cold forceps. PAST MEDICAL HISTORY PAST MEDICAL HISTORY No date: Acute gastritis No date: DM (diabetes mellitus) (HCC) No date: GERD (gastroesophageal reflux disease) No date: Hiatal hernia No date: HLD (hyperlipidemia) No date: HTN (hypertension) PAST SURGICAL HISTORY PAST SURGICAL HISTORY No date: CHOLECYSTECTOMY; N/A Comment: done when she was 23 01/13/2023: COLONOSCOPY No date: EGD W/O BRSH SPEC VARICIES INJ Comment: unsure of year 05/19/2022: EGD W/O BRSH SPEC VARICIES INJ Comment: 10/2017: TOTAL ABDOMINAL HYSTERECT W/WO RMVL TUBE OVARY; N/A Comment: for abnormal bleeding. no cancer No date: VAGINAL HYSTERECTOMY FAMILY HISTORY FAMILY HISTORY Problem Relation Age of Onset Hypertension Mother Dementia Father SOCIAL HISTORY Social History Tobacco Use Smoking status: Never Smokeless tobacco: Never Vaping Use Vaping status: Never Used Substance Use Topics Alcohol use: No Drug use: No The patient has the following: Problem List Noted Noted By Resolved Resolved By History of tubal ligation 11/17/2023 Tiffanie Burks MA No Overview Signed 11/17/2023 3:48 PM by Tiffanie Burks MA Comment on above: 1990 Iron deficiency 11/17/2023 Tiffanie Burks MA No Menorrhagia 11/17/2023 Tiffanie Burks MA No Onychomycosis 11/17/2023 Tiffanie Burks MA No Osteopenia 11/17/2023 Tiffanie Burks MA No Postmenopausal bleeding 11/17/2023 Tiffanie Burks MA No Sleep disorder 11/17/2023 Tiffanie Burks MA No Overview Signed 11/17/2023 3:48 PM by Tiffanie Burks MA Comment on above: testosterone normal try exercise- she has noted it better in past with exercise 1985 3rd child- 1990 Stress incontinence in female 11/17/2023 Tiffanie Burks MA No Controlled type 2 diabetes mellitus without complication ([facility]) 05/10/2023 Jose Bullard MD No Obesity, Class I, BMI 30-34.9 05/19/2022 Claire Redman MD No CKD (chronic kidney disease) stage 3, GFR 30-59 ml/min ([facility]) 05/13/2022 Jose Bullard MD No Hypertension, essential 12/20/2018 Podlogar, 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 No GERD without esophagitis 12/20/2018 Podlogar, 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 No Hyperlipidemia, mixed 12/20/2018 Podlogar, 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 No Abnormal glucose tolerance test (GTT) 11/17/2023 Tiffanie Burks MA 03/22/2024 Jose Bullard MD Non-smoker 11/17/2023 Tiffanie Burks MA 03/22/2024 Jose Bullard MD Shortness of breath at rest 11/17/2023 Tiffanie Burks MA 03/22/2024 Jose Bullard MD Overview Signed 11/17/2023 3:48 PM by Tiffanie Burks MA Comment on above: awaiting pfts if negative send to cardio Suprapubic pain 11/17/2023 Tiffanie Burks MA 03/22/2024 Jose Bullard MD Overview Signed 11/17/2023 3:48 PM by Tiffanie Burks MA Comment on above: if urine negative do pelvic us Swelling of extremity 11/17/2023 Tiffanie Burks MA 03/22/2024 Jose Bullard MD MEDICATIONS CURRENT MEDICATIONS Current Outpatient Medications Medication Sig Dispense Refill calcium phosphate dibas/vit D3 (VITAMIN D, WITH CALCIUM, ORAL) Take by mouth. benazepril (LOTENSIN) 20 mg tablet Take 1 tablet by mouth once daily. 30 tablet 5 hydroCHLOROthiazide 25 mg tablet Take 1 tablet by mouth once daily. 30 tablet 5 metFORMIN (GLUCOPHAGE) 500 mg tablet Take 1 tablet by mouth daily with breakfast. 30 tablet 5 rosuvastatin (CRESTOR) 5 mg tablet Take 1 tablet by mouth once daily. 30 tablet 5 multivitamin (DAILY VITAMIN ORAL) Take by mouth once daily. blood sugar diagnostic (BLOOD GLUCOSE TEST) test strip Test blood sugar(s) 1 times daily. Dx: Type 2 DM - Controlled E11.9 Insulin: No [address] (PROTONIX) 40 mg tablet Take 1 tablet by mouth once daily. 30 tablet 2 No current facility-administered medications for this visit. CURRENT ALLERGIES ALLERGIES ALLERGIES No Known Allergies REVIEW OF SYSTEMS PAIN ASSESSMENT: Negative for pain, history of chronic pain, or current treatment for a chronic pain condition. GENERAL: No weight loss, malaise or fevers. RESPIRATORY: Negative for cough, hemoptysis, wheezing, dyspnea or shortness of breath. CARDIOVASCULAR: Negative for chest pain, leg swelling, or palpitations. GI: Not currently having abdominal pain but will experience it in the epigastric region. Denies nausea, vomiting, diarrhea, or constipation. PHYSICAL EXAMINATION BP 118/72 Pulse 76 Temp 97.7 Ht 5' 1 (1.55m) Wt 168 lb 6.4 oz (76.4kg) SpO2 97% BMI 31.84 kg/(m^2). General Appearance: Well appearing, alert, in no acute distress, well-hydrated, well nourished. Lungs: Lungs clear to auscultation. No wheezing, rhonchi, rales Heart: RRR without murmur, gallop, or rubs. No ectopy Abdomen: Normal abdominal exam Diagnostic tests reviewed for today's visit: Colonoscopy Report and Pathology 01/13/23 Findings: The perianal and digital rectal examinations were normal. Non-bleeding external and internal hemorrhoids were found. A 2 to 3 mm polyp was found in the splenic flexure. The polyp was sessile. The polyp was removed with a cold biopsy forceps. Resection and retrieval were complete. Verification of patient identification for the specimen was done by the nurse. Estimated blood loss was minimal. Impression: - Non-bleeding external and internal hemorrhoids. - One 2 to 3 mm polyp at the splenic flexure, removed with a cold biopsy forceps. Resected and retrieved. Recommendation: - Discharge patient to home (ambulatory). - Resume previous diet. - Repeat colonoscopy date to be determined after pending pathology results are reviewed for surveillance based on pathology results. - Follow up with Gail Mccain PA-C via televisit for discussion of pathology results and determination of timing of future endoscopies - Patient has a contact number available for emergencies. The signs and symptoms of potential delayed complications were discussed with the patient. Return to normal activities tomorrow. Written discharge instructions were provided to the patient. - Continue present medications. Component FINAL DIAGNOSIS A. Splenic flexure, polyp, biopsy: -Tubular adenoma. EGD Report and Pathology 05/19/2022 From procedure report - A bite block was placed. The upper endoscope was lubricated, carefully inserted in the patient's mouth, advanced into the esophagus. It was then advanced down the esophagus into the stomach, past the pylorus, then into the first and then 2nd and 3rd portion of the duodenum. No masses, polyps, or lesions were noted in the duodenum. The endoscope was then retracted back into the stomach. The stomach appeared normal, but because of the patient's complaint, mucosal biopsies of the antrum were taken for histology and H pylori. Retroflex view into the fundus and body of the stomach revealed no evidence of any masses or polyps. However, the patient was noted to have a moderate-sized hiatal hernia. There was also a sliding component that was noted. The endoscope was retracted back into the esophagus. The sliding component was approximately 3 cm and the GE junction appeared irregular. The mucosal biopsies were taken using cold grasper forceps of the GE junction. There appeared to be Winlock-colored mucosal creeping about 1 cm proximal to the GE junction. Mucosal biopsies were taken using cold grasper forceps. Because of patient's complaint of dysphagia, mid esophageal mucosal biopsies were taken using cold grasper forceps. The remainder of the esophagus appeared normal FINAL DIAGNOSIS A. Antrum (stomach), biopsy: -- Antral type gastric mucosa with change of reactive gastropathy and mild chronic gastritis. -- No H. pylori organisms are identified on H&E sections. B. Esophagogastric junction, biopsy: -- Squamous mucosa with change of reflux esophagitis. -- No glandular type mucosa present for evaluation. C. Mid esophagus, biopsy: -- Squamous mucosa with no significant histopathologic abnormalities. Assessment ASSESSMENT Gastritis without bleeding, unspecified chronicity, unspecified gastritis type (primary encounter diagnosis) Hiatal hernia PLAN I have discussed the above with the patient. I have offered EGD, possible biopsies I have explained the procedure to the patient. I have counseled the patient as to the risks of the procedure, including but not limited to: infection, bleeding, injury to any intrabdominal organs such as liver/spleen, perforation of the GI tract, inability to complete the procedure, complications of anesthesia, etc. - the patient understands. The patient wishes to proceed. I have answered all questions to the patient s satisfaction and the patient has no further questions. [facility] 08-07-2024 History and physical note UPDATED HISTORY AND PHYSICAL EXAMINATION SERVICE DATE: 08/07/2024 SERVICE TIME: 9:30 SENSITIVE EXAMINATION CONSENT: The sensitive examination was discussed with the Patient or Patient's Authorized Poultry Farmer Egg. As applicable, any other physician, advance practice provider, medical student, or other health professional student that will be observing or involved in the sensitive examination for educational or training purposes was discussed with the Patient or Authorized Poultry Farmer Egg. The Patient or Authorized Poultry Farmer Egg has agreed to proceed with the sensitive examination. (Sensitive examination includes inspection and/or palpation of the breasts, pelvis, prostate and anorectal regions) PHYSICAL EXAM MUST BE COMPLETED ON ADMISSION The History and Physical (completed in the past 30 days) has been reviewed and the patient has been examined. The contents accurately reflect the patient's condition with the following additions or revisions since the H&P was completed. Examination indicates no changes. This H&P can be found in the Electronic Medical Record . SIGNATURE: Sussy Reid MD PATIENT NAME: Susan Bobby DATE: August 07, 2024 TIME: 9:30 AM Source Note - Sussy Reid MD - 08/07/2024 10:30 AM EDT Ms. Bobby is a 64 year old female with contributing past medical and surgical history significant for irregular gastroesophgeal junction and moderate sized hiatal hernia with sliding component (EGD 2021), GERD, HTN, HLD, T2DM, s/p cholecystectomy. The patient presents with recurrent epigastric pain after eating . Started protonix in 2021. She was initially taking protonix 40mg daily then transitioned to 40mg every other day when symptoms were controlled. She was seen by Gail Mccain PA-C on 05/31/2022 for follow up after EGD to discuss possible hiatal hernia repair. At that time, she had improved symptoms on protonix and wanted to proceed with medical management and would contact the general surgery office if she had any worsening of symptoms. She reports an increased epigastric pain over the past several months after eating. The episodes of pain are intermittent, and do not occur after every meal. Denies nausea and vomiting. Denies change in bowel habits. Last colonoscopy 01/13/2023 for screening showed non-bleeding external and internal hemorrhoids and one 2-3mm polyp at the splenic flexure that was removed with cold forceps. PAST MEDICAL HISTORY PAST MEDICAL HISTORY No date: Acute gastritis No date: DM (diabetes mellitus) (HCC) No date: GERD (gastroesophageal reflux disease) No date: Hiatal hernia No date: HLD (hyperlipidemia) No date: HTN (hypertension) PAST SURGICAL HISTORY PAST SURGICAL HISTORY No date: CHOLECYSTECTOMY; N/A Comment: done when she was 23 01/13/2023: COLONOSCOPY No date: EGD W/O BRSH SPEC VARICIES INJ Comment: unsure of year 05/19/2022: EGD W/O BRSH SPEC VARICIES INJ Comment: 10/2017: TOTAL ABDOMINAL HYSTERECT W/WO RMVL TUBE OVARY; N/A Comment: for abnormal bleeding. no cancer No date: VAGINAL HYSTERECTOMY FAMILY HISTORY FAMILY HISTORY Problem Relation Age of Onset Hypertension Mother Dementia Father SOCIAL HISTORY Social History Tobacco Use Smoking status: Never Smokeless tobacco: Never Vaping Use Vaping status: Never Used Substance Use Topics Alcohol use: No Drug use: No The patient has the following: Problem List Noted Noted By Resolved Resolved By History of tubal ligation 11/17/2023 Tiffanie Burks MA No Overview Signed 11/17/2023 3:48 PM by Tiffanie Burks MA Comment on above: 1990 Iron deficiency 11/17/2023 Tiffanie Burks MA No Menorrhagia 11/17/2023 Tiffanie Burks MA No Onychomycosis 11/17/2023 Tiffanie Burks MA No Osteopenia 11/17/2023 Tiffanie Burks MA No Postmenopausal bleeding 11/17/2023 Tiffanie Burks MA No Sleep disorder 11/17/2023 Tiffanie Burks MA No Overview Signed 11/17/2023 3:48 PM by Tiffanie Burks MA Comment on above: testosterone normal try exercise- she has noted it better in past with exercise 1985 3rd child- 1990 Stress incontinence in female 11/17/2023 Tiffanie Burks MA No Controlled type 2 diabetes mellitus without complication ([facility]) 05/10/2023 Jose Bullard MD No Obesity, Class I, BMI 30-34.9 05/19/2022 Claire Redman MD No CKD (chronic kidney disease) stage 3, GFR 30-59 ml/min ([facility]) 05/13/2022 Jose Bullard MD No Hypertension, essential 12/20/2018 Podlogar, 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 No GERD without esophagitis 12/20/2018 Podlogar, 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 No Hyperlipidemia, mixed 12/20/2018 Podlogar, 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 No Abnormal glucose tolerance test (GTT) 11/17/2023 Tiffanie Burks MA 03/22/2024 Jose Bullard MD Non-smoker 11/17/2023 Tiffanie Burks MA 03/22/2024 Jose Bullard MD Shortness of breath at rest 11/17/2023 Tiffanie Burks MA 03/22/2024 Jose Bullard MD Overview Signed 11/17/2023 3:48 PM by Tiffanie Burks MA Comment on above: awaiting pfts if negative send to cardio Suprapubic pain 11/17/2023 Tiffanie Burks MA 03/22/2024 Jose Bullard MD Overview Signed 11/17/2023 3:48 PM by Tiffanie Burks MA Comment on above: if urine negative do pelvic us Swelling of extremity 11/17/2023 Tiffanie Burks MA 03/22/2024 Jose Bullard MD MEDICATIONS CURRENT MEDICATIONS Current Outpatient Medications Medication Sig Dispense Refill calcium phosphate dibas/vit D3 (VITAMIN D, WITH CALCIUM, ORAL) Take by mouth. benazepril (LOTENSIN) 20 mg tablet Take 1 tablet by mouth once daily. 30 tablet 5 hydroCHLOROthiazide 25 mg tablet Take 1 tablet by mouth once daily. 30 tablet 5 metFORMIN (GLUCOPHAGE) 500 mg tablet Take 1 tablet by mouth daily with breakfast. 30 tablet 5 rosuvastatin (CRESTOR) 5 mg tablet Take 1 tablet by mouth once daily. 30 tablet 5 multivitamin (DAILY VITAMIN ORAL) Take by mouth once daily. blood sugar diagnostic (BLOOD GLUCOSE TEST) test strip Test blood sugar(s) 1 times daily. Dx: Type 2 DM - Controlled E11.9 Insulin: No [address] (PROTONIX) 40 mg tablet Take 1 tablet by mouth once daily. 30 tablet 2 No current facility-administered medications for this visit. CURRENT ALLERGIES ALLERGIES ALLERGIES No Known Allergies REVIEW OF SYSTEMS PAIN ASSESSMENT: Negative for pain, history of chronic pain, or current treatment for a chronic pain condition. GENERAL: No weight loss, malaise or fevers. RESPIRATORY: Negative for cough, hemoptysis, wheezing, dyspnea or shortness of breath. CARDIOVASCULAR: Negative for chest pain, leg swelling, or palpitations. GI: Not currently having abdominal pain but will experience it in the epigastric region. Denies nausea, vomiting, diarrhea, or constipation. PHYSICAL EXAMINATION BP 118/72 Pulse 76 Temp 97.7 Ht 5' 1 (1.55m) Wt 168 lb 6.4 oz (76.4kg) SpO2 97% BMI 31.84 kg/(m^2). General Appearance: Well appearing, alert, in no acute distress, well-hydrated, well nourished. Lungs: Lungs clear to auscultation. No wheezing, rhonchi, rales Heart: RRR without murmur, gallop, or rubs. No ectopy Abdomen: Normal abdominal exam Diagnostic tests reviewed for today's visit: Colonoscopy Report and Pathology 01/13/23 Findings: The perianal and digital rectal examinations were normal. Non-bleeding external and internal hemorrhoids were found. A 2 to 3 mm polyp was found in the splenic flexure. The polyp was sessile. The polyp was removed with a cold biopsy forceps. Resection and retrieval were complete. Verification of patient identification for the specimen was done by the nurse. Estimated blood loss was minimal. Impression: - Non-bleeding external and internal hemorrhoids. - One 2 to 3 mm polyp at the splenic flexure, removed with a cold biopsy forceps. Resected and retrieved. Recommendation: - Discharge patient to home (ambulatory). - Resume previous diet. - Repeat colonoscopy date to be determined after pending pathology results are reviewed for surveillance based on pathology results. - Follow up with Gail Mccain PA-C via televisit for discussion of pathology results and determination of timing of future endoscopies - Patient has a contact number available for emergencies. The signs and symptoms of potential delayed complications were discussed with the patient. Return to normal activities tomorrow. Written discharge instructions were provided to the patient. - Continue present medications. Component FINAL DIAGNOSIS A. Splenic flexure, polyp, biopsy: -Tubular adenoma. EGD Report and Pathology 05/19/2022 From procedure report - A bite block was placed. The upper endoscope was lubricated, carefully inserted in the patient's mouth, advanced into the esophagus. It was then advanced down the esophagus into the stomach, past the pylorus, then into the first and then 2nd and 3rd portion of the duodenum. No masses, polyps, or lesions were noted in the duodenum. The endoscope was then retracted back into the stomach. The stomach appeared normal, but because of the patient's complaint, mucosal biopsies of the antrum were taken for histology and H pylori. Retroflex view into the fundus and body of the stomach revealed no evidence of any masses or polyps. However, the patient was noted to have a moderate-sized hiatal hernia. There was also a sliding component that was noted. The endoscope was retracted back into the esophagus. The sliding component was approximately 3 cm and the GE junction appeared irregular. The mucosal biopsies were taken using cold grasper forceps of the GE junction. There appeared to be Winlock-colored mucosal creeping about 1 cm proximal to the GE junction. Mucosal biopsies were taken using cold grasper forceps. Because of patient's complaint of dysphagia, mid esophageal mucosal biopsies were taken using cold grasper forceps. The remainder of the esophagus appeared normal FINAL DIAGNOSIS A. Antrum (stomach), biopsy: -- Antral type gastric mucosa with change of reactive gastropathy and mild chronic gastritis. -- No H. pylori organisms are identified on H&E sections. B. Esophagogastric junction, biopsy: -- Squamous mucosa with change of reflux esophagitis. -- No glandular type mucosa present for evaluation. C. Mid esophagus, biopsy: -- Squamous mucosa with no significant histopathologic abnormalities. Assessment ASSESSMENT Gastritis without bleeding, unspecified chronicity, unspecified gastritis type (primary encounter diagnosis) Hiatal hernia PLAN I have discussed the above with the patient. I have offered EGD, possible biopsies I have explained the procedure to the patient. I have counseled the patient as to the risks of the procedure, including but not limited to: infection, bleeding, injury to any intrabdominal organs such as liver/spleen, perforation of the GI tract, inability to complete the procedure, complications of anesthesia, etc. - the patient understands. The patient wishes to proceed. I have answered all questions to the patient s satisfaction and the patient has no further questions. Ms. Bobby is a 64 year old female with contributing past medical and surgical history significant for irregular gastroesophgeal junction and moderate sized hiatal hernia with sliding component (EGD 2021), GERD, HTN, HLD, T2DM, s/p cholecystectomy. The patient presents with recurrent epigastric pain after eating . Started protonix in 2021. She was initially taking protonix 40mg daily then transitioned to 40mg every other day when symptoms were controlled. She was seen by Gail Mccain PA-C on 05/31/2022 for follow up after EGD to discuss possible hiatal hernia repair. At that time, she had improved symptoms on protonix and wanted to proceed with medical management and would contact the general surgery office if she had any worsening of symptoms. She reports an increased epigastric pain over the past several months after eating. The episodes of pain are intermittent, and do not occur after every meal. Denies nausea and vomiting. Denies change in bowel habits. Last colonoscopy 01/13/2023 for screening showed non-bleeding external and internal hemorrhoids and one 2-3mm polyp at the splenic flexure that was removed with cold forceps. PAST MEDICAL HISTORY PAST MEDICAL HISTORY No date: Acute gastritis No date: DM (diabetes mellitus) (HCC) No date: GERD (gastroesophageal reflux disease) No date: Hiatal hernia No date: HLD (hyperlipidemia) No date: HTN (hypertension) PAST SURGICAL HISTORY PAST SURGICAL HISTORY No date: CHOLECYSTECTOMY; N/A Comment: done when she was 23 01/13/2023: COLONOSCOPY No date: EGD W/O BRSH SPEC VARICIES INJ Comment: unsure of year 05/19/2022: EGD W/O BRSH SPEC VARICIES INJ Comment: 10/2017: TOTAL ABDOMINAL HYSTERECT W/WO RMVL TUBE OVARY; N/A Comment: for abnormal bleeding. no cancer No date: VAGINAL HYSTERECTOMY FAMILY HISTORY FAMILY HISTORY Problem Relation Age of Onset Hypertension Mother Dementia Father SOCIAL HISTORY Social History Tobacco Use Smoking status: Never Smokeless tobacco: Never Vaping Use Vaping status: Never Used Substance Use Topics Alcohol use: No Drug use: No The patient has the following: Problem List Noted Noted By Resolved Resolved By History of tubal ligation 11/17/2023 Tiffanie Burks MA No Overview Signed 11/17/2023 3:48 PM by Tiffanie Burks MA Comment on above: 1990 Iron deficiency 11/17/2023 Tiffanie Burks MA No Menorrhagia 11/17/2023 Tiffanie Burks MA No Onychomycosis 11/17/2023 Tiffanie Burks MA No Osteopenia 11/17/2023 Tiffanie Burks MA No Postmenopausal bleeding 11/17/2023 Tiffanie Burks MA No Sleep disorder 11/17/2023 Tiffanei Burks MA No Overview Signed 11/17/2023 3:48 PM by Tiffanie Burks MA Comment on above: testosterone normal try exercise- she has noted it better in past with exercise 1985 3rd child- 1990 Stress incontinence in female 11/17/2023 Tiffanie Burks MA No Controlled type 2 diabetes mellitus without complication (HCC) 05/10/2023 Jose Bullard MD No Obesity, Class I, BMI 30-34.9 05/19/2022 Claire Redman MD No CKD (chronic kidney disease) stage 3, GFR 30-59 ml/min ([facility]) 05/13/2022 Jose Bullard MD No Hypertension, essential 12/20/2018 Podlogar, 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 No GERD without esophagitis 12/20/2018 Podlogar, 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 No Hyperlipidemia, mixed 12/20/2018 Podlogar, 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 No Abnormal glucose tolerance test (GTT) 11/17/2023 Tiffanie Burks MA 03/22/2024 Jose Bullard MD Non-smoker 11/17/2023 Tiffanie Burks MA 03/22/2024 Jose Bullard MD Shortness of breath at rest 11/17/2023 Tiffanie Burks MA 03/22/2024 Jose Bullard MD Overview Signed 11/17/2023 3:48 PM by Tiffanie Burks MA Comment on above: awaiting pfts if negative send to cardio Suprapubic pain 11/17/2023 Tiffanie Burks MA 03/22/2024 Jose Bullard MD Overview Signed 11/17/2023 3:48 PM by Tiffanie Burks MA Comment on above: if urine negative do pelvic us Swelling of extremity 11/17/2023 Tiffanie Burks MA 03/22/2024 Jose Bullard MD MEDICATIONS CURRENT MEDICATIONS Current Outpatient Medications Medication Sig Dispense Refill calcium phosphate dibas/vit D3 (VITAMIN D, WITH CALCIUM, ORAL) Take by mouth. benazepril (LOTENSIN) 20 mg tablet Take 1 tablet by mouth once daily. 30 tablet 5 hydroCHLOROthiazide 25 mg tablet Take 1 tablet by mouth once daily. 30 tablet 5 metFORMIN (GLUCOPHAGE) 500 mg tablet Take 1 tablet by mouth daily with breakfast. 30 tablet 5 rosuvastatin (CRESTOR) 5 mg tablet Take 1 tablet by mouth once daily. 30 tablet 5 multivitamin (DAILY VITAMIN ORAL) Take by mouth once daily. blood sugar diagnostic (BLOOD GLUCOSE TEST) test strip Test blood sugar(s) 1 times daily. Dx: Type 2 DM - Controlled E11.9 Insulin: No [address] (PROTONIX) 40 mg tablet Take 1 tablet by mouth once daily. 30 tablet 2 No current facility-administered medications for this visit. CURRENT ALLERGIES ALLERGIES ALLERGIES No Known Allergies REVIEW OF SYSTEMS PAIN ASSESSMENT: Negative for pain, history of chronic pain, or current treatment for a chronic pain condition. GENERAL: No weight loss, malaise or fevers. RESPIRATORY: Negative for cough, hemoptysis, wheezing, dyspnea or shortness of breath. CARDIOVASCULAR: Negative for chest pain, leg swelling, or palpitations. GI: Not currently having abdominal pain but will experience it in the epigastric region. Denies nausea, vomiting, diarrhea, or constipation. PHYSICAL EXAMINATION BP 118/72 Pulse 76 Temp 97.7 Ht 5' 1 (1.55m) Wt 168 lb 6.4 oz (76.4kg) SpO2 97% BMI 31.84 kg/(m^2). General Appearance: Well appearing, alert, in no acute distress, well-hydrated, well nourished. Lungs: Lungs clear to auscultation. No wheezing, rhonchi, rales Heart: RRR without murmur, gallop, or rubs. No ectopy Abdomen: Normal abdominal exam Diagnostic tests reviewed for today's visit: Colonoscopy Report and Pathology 01/13/23 Findings: The perianal and digital rectal examinations were normal. Non-bleeding external and internal hemorrhoids were found. A 2 to 3 mm polyp was found in the splenic flexure. The polyp was sessile. The polyp was removed with a cold biopsy forceps. Resection and retrieval were complete. Verification of patient identification for the specimen was done by the nurse. Estimated blood loss was minimal. Impression: - Non-bleeding external and internal hemorrhoids. - One 2 to 3 mm polyp at the splenic flexure, removed with a cold biopsy forceps. Resected and retrieved. Recommendation: - Discharge patient to home (ambulatory). - Resume previous diet. - Repeat colonoscopy date to be determined after pending pathology results are reviewed for surveillance based on pathology results. - Follow up with Gail Mccain PA-C via televisit for discussion of pathology results and determination of timing of future endoscopies - Patient has a contact number available for emergencies. The signs and symptoms of potential delayed complications were discussed with the patient. Return to normal activities tomorrow. Written discharge instructions were provided to the patient. - Continue present medications. Component FINAL DIAGNOSIS A. Splenic flexure, polyp, biopsy: -Tubular adenoma. EGD Report and Pathology 05/19/2022 From procedure report - A bite block was placed. The upper endoscope was lubricated, carefully inserted in the patient's mouth, advanced into the esophagus. It was then advanced down the esophagus into the stomach, past the pylorus, then into the first and then 2nd and 3rd portion of the duodenum. No masses, polyps, or lesions were noted in the duodenum. The endoscope was then retracted back into the stomach. The stomach appeared normal, but because of the patient's complaint, mucosal biopsies of the antrum were taken for histology and H pylori. Retroflex view into the fundus and body of the stomach revealed no evidence of any masses or polyps. However, the patient was noted to have a moderate-sized hiatal hernia. There was also a sliding component that was noted. The endoscope was retracted back into the esophagus. The sliding component was approximately 3 cm and the GE junction appeared irregular. The mucosal biopsies were taken using cold grasper forceps of the GE junction. There appeared to be Winlock-colored mucosal creeping about 1 cm proximal to the GE junction. Mucosal biopsies were taken using cold grasper forceps. Because of patient's complaint of dysphagia, mid esophageal mucosal biopsies were taken using cold grasper forceps. The remainder of the esophagus appeared normal FINAL DIAGNOSIS A. Antrum (stomach), biopsy: -- Antral type gastric mucosa with change of reactive gastropathy and mild chronic gastritis. -- No H. pylori organisms are identified on H&E sections. B. Esophagogastric junction, biopsy: -- Squamous mucosa with change of reflux esophagitis. -- No glandular type mucosa present for evaluation. C. Mid esophagus, biopsy: -- Squamous mucosa with no significant histopathologic abnormalities. Assessment ASSESSMENT Gastritis without bleeding, unspecified chronicity, unspecified gastritis type (primary encounter diagnosis) Hiatal hernia PLAN I have discussed the above with the patient. I have offered EGD, possible biopsies I have explained the procedure to the patient. I have counseled the patient as to the risks of the procedure, including but not limited to: infection, bleeding, injury to any intrabdominal organs such as liver/spleen, perforation of the GI tract, inability to complete the procedure, complications of anesthesia, etc. - the patient understands. The patient wishes to proceed. I have answered all questions to the patient s satisfaction and the patient has no further questions. documented in this encounter [facility] 08-07-2024 Note HNO ID: [id number] Author: KYLEIGH BRUNO RN Service: Nursing Author Type: Registered Nurse Type: Nursing Progress Note Filed: 08/07/2024 09:22 Note Text: Other: pt ready for OR, call light in jose schuster called to bedside [facility] 08-07-2024 Nurse Note Other: pt ready for OR, call light in jose schuster called to bedside [facility] 08-07-2024 Nurse Note Other: pt ready for OR, call light in jose schuster called to bedside documented in this encounter [facility] 06-26-2024 Nurse Note REVIEW OF SYSTEMS: General: The patient denies fatigue, denies weight loss, denies weight gain, denies feeling hot, and denies feelings of cold. Eyes: The patient denies glaucoma, denies eye injury/surgery, does not wear glasses or contacts. Ear/Nose/Throat: The patient denies allergies, denies hayfever, denies ear infections, and denies bloody noses. Cardiovascular: The patient denies chest pain, denies heart disease, NOTES high blood pressure,denies cardiac stent, denies prior heart attack, denies irregular heart beat, NOTES high cholesterol, denies poor circulation, denies heart failure, other cardiac issues, denies claudication, denies cold feet, denies peripheral arterial stent. Respiratory: The patient denies tuberculosis, denies pneumonia, denies frequent cough, denies pulmonary embolism, denies shortness of breath, and denies coughing up blood. Gastrointestinal: The patient denies difficulty swallowing, NOTES acid reflux, denies ulcers, denies vomiting, denies jaundice/hepatitis, denies gallbladder problems, denies black or tarry stools, denies hemorrhoids, NOTES bleeding from rectum, denies diverticulitis, denies constipation, denies diarrhea, denies loss of stool control, and denies hernias. Kidney/Bladder: The patient denies kidney stones, denies urine infections, and denies bloody urine. Skin: The patient denies a history of skin cancer, denies bleeding/changing moles, and denies a history of skin rash. Neurologic: The patient denies a history of epilepsy/convulsions, denies headaches, denies head/spinal injuries, and denies stroke/TIA. Psychiatric: The patient denies psychiatric medications, denies depression, and denies voices, denies substance abuse. Endocrine: The patient denies thyroid disorders, NOTES diabetes, and denies hormonal problems. Hematologic: The patient denies a history of bruising, denies bleeding, and denies anemia, denies blood clots. Infections: The patient denies a history of measles and mumps, denies rheumatic fever, and denies sexually transmitted diseases. Musculoskeletal: The patient denies back pain/injury, denies back problems, denies sciatica, denies knee/foot trouble, denies arthritis, or denies gout. When was patient's last Mammogram screening? 05/2024 Last Colonoscopy: 01/13/2023 Sarah Wheeler RN [facility] 06-26-2024 Nurse Note REVIEW OF SYSTEMS: General: The patient denies fatigue, denies weight loss, denies weight gain, denies feeling hot, and denies feelings of cold. Eyes: The patient denies glaucoma, denies eye injury/surgery, does not wear glasses or contacts. Ear/Nose/Throat: The patient denies allergies, denies hayfever, denies ear infections, and denies bloody noses. Cardiovascular: The patient denies chest pain, denies heart disease, NOTES high blood pressure,denies cardiac stent, denies prior heart attack, denies irregular heart beat, NOTES high cholesterol, denies poor circulation, denies heart failure, other cardiac issues, denies claudication, denies cold feet, denies peripheral arterial stent. Respiratory: The patient denies tuberculosis, denies pneumonia, denies frequent cough, denies pulmonary embolism, denies shortness of breath, and denies coughing up blood. Gastrointestinal: The patient denies difficulty swallowing, NOTES acid reflux, denies ulcers, denies vomiting, denies jaundice/hepatitis, denies gallbladder problems, denies black or tarry stools, denies hemorrhoids, NOTES bleeding from rectum, denies diverticulitis, denies constipation, denies diarrhea, denies loss of stool control, and denies hernias. Kidney/Bladder: The patient denies kidney stones, denies urine infections, and denies bloody urine. Skin: The patient denies a history of skin cancer, denies bleeding/changing moles, and denies a history of skin rash. Neurologic: The patient denies a history of epilepsy/convulsions, denies headaches, denies head/spinal injuries, and denies stroke/TIA. Psychiatric: The patient denies psychiatric medications, denies depression, and denies voices, denies substance abuse. Endocrine: The patient denies thyroid disorders, NOTES diabetes, and denies hormonal problems. Hematologic: The patient denies a history of bruising, denies bleeding, and denies anemia, denies blood clots. Infections: The patient denies a history of measles and mumps, denies rheumatic fever, and denies sexually transmitted diseases. Musculoskeletal: The patient denies back pain/injury, denies back problems, denies sciatica, denies knee/foot trouble, denies arthritis, or denies gout. When was patient's last Mammogram screening? 05/2024 Last Colonoscopy: 01/13/2023 Sarah Wheeler RN documented in this encounter [facility] 06-26-2024 History and physical note Images from the original note were not included. General Surgery Consult REASON FOR VISIT Susan Bobby is a 64 year old female who is scheduled for a consult at the request of Melany Kuo / Jose Bullard MD for gastritis. My final recommendations will be communicated back to the requesting physician by the way of the shared medical record, fax, or via US Mail History of Present Illness: Susan Bobby is a 64 year old female with contributing past medical and surgical history significant for irregular gastroesophgeal junction and moderate sized hiatal hernia with sliding component (EGD 2021), GERD, HTN, HLD, T2DM, s/p cholecystectomy. The patient presents with recurrent epigastric pain after eating . Started protonix in 2021. She was initially taking protonix 40mg daily then transitioned to 40mg every other day when symptoms were controlled. She was seen by Gail Mccain PA-C on 05/31/2022 for follow up after EGD to discuss possible hiatal hernia repair. At that time, she had improved symptoms on protonix and wanted to proceed with medical management and would contact the general surgery office if she had any worsening of symptoms. She reports an increased epigastric pain over the past several months after eating. The episodes of pain are intermittent, and do not occur after every meal. Denies nausea and vomiting. Denies change in bowel habits. Last colonoscopy 01/13/2023 for screening showed non-bleeding external and internal hemorrhoids and one 2-3mm polyp at the splenic flexure that was removed with cold forceps. PAST MEDICAL HISTORY No date: Acute gastritis No date: DM (diabetes mellitus) (HCC) No date: GERD (gastroesophageal reflux disease) No date: Hiatal hernia No date: HLD (hyperlipidemia) No date: HTN (hypertension) PAST SURGICAL HISTORY No date: CHOLECYSTECTOMY; N/A Comment: done when she was 23 01/13/2023: COLONOSCOPY No date: EGD W/O BRSH SPEC VARICIES INJ Comment: unsure of year 05/19/2022: EGD W/O BRSH SPEC VARICIES INJ Comment: 10/2017: TOTAL ABDOMINAL HYSTERECT W/WO RMVL TUBE OVARY; N/A Comment: for abnormal bleeding. no cancer No date: VAGINAL HYSTERECTOMY FAMILY HISTORY Problem Relation Age of Onset Hypertension Mother Dementia Father Social History Tobacco Use Smoking status: Never Smokeless tobacco: Never Vaping Use Vaping status: Never Used Substance Use Topics Alcohol use: No Drug use: No The patient has the following: Problem List Noted Noted By Resolved Resolved By History of tubal ligation 11/17/2023 Tiffanie Burks MA No Overview Signed 11/17/2023 3:48 PM by Tiffanie Burks MA Comment on above: 1990 Iron deficiency 11/17/2023 Tiffanie Burks MA No Menorrhagia 11/17/2023 Tiffanie Burks MA No Onychomycosis 11/17/2023 Tiffanie Burks MA No Osteopenia 11/17/2023 Tiffanie Burks MA No Postmenopausal bleeding 11/17/2023 Tiffanie Burks MA No Sleep disorder 11/17/2023 Tiffanie Burks MA No Overview Signed 11/17/2023 3:48 PM by Tiffanie Burks MA Comment on above: testosterone normal try exercise- she has noted it better in past with exercise 1985 14 child- 1990 Stress incontinence in female 11/17/2023 Tiffanie Burks MA No Controlled type 2 diabetes mellitus without complication ([facility]) 05/10/2023 Jose Bullard MD No Obesity, Class I, BMI 30-34.9 05/19/2022 Claire Redman MD No CKD (chronic kidney disease) stage 3, GFR 30-59 ml/min ([facility]) 05/13/2022 Jose Bullard MD No Hypertension, essential 12/20/2018 Podlogar, 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 No GERD without esophagitis 12/20/2018 Podlogar, 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 No Hyperlipidemia, mixed 12/20/2018 Podlogar, 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 No Abnormal glucose tolerance test (GTT) 11/17/2023 Tiffanie Burks MA 03/22/2024 Jose Bullard MD Non-smoker 11/17/2023 Tiffanie Burks MA 03/22/2024 Jose Bullard MD Shortness of breath at rest 11/17/2023 Tiffanie Burks MA 03/22/2024 Jose Bullard MD Overview Signed 11/17/2023 3:48 PM by Tiffanie Burks MA Comment on above: awaiting pfts if negative send to cardio Suprapubic pain 11/17/2023 Tiffanie Burks MA 03/22/2024 Jose Bullard MD Overview Signed 11/17/2023 3:48 PM by Tiffanie Burks MA Comment on above: if urine negative do pelvic us Swelling of extremity 11/17/2023 Tiffanie Burks MA 03/22/2024 Jose Bullard MD MEDICATIONS Current Outpatient Medications Medication Sig Dispense Refill calcium phosphate dibas/vit D3 (VITAMIN D, WITH CALCIUM, ORAL) Take by mouth. benazepril (LOTENSIN) 20 mg tablet Take 1 tablet by mouth once daily. 30 tablet 5 hydroCHLOROthiazide 25 mg tablet Take 1 tablet by mouth once daily. 30 tablet 5 metFORMIN (GLUCOPHAGE) 500 mg tablet Take 1 tablet by mouth daily with breakfast. 30 tablet 5 rosuvastatin (CRESTOR) 5 mg tablet Take 1 tablet by mouth once daily. 30 tablet 5 multivitamin (DAILY VITAMIN ORAL) Take by mouth once daily. blood sugar diagnostic (BLOOD GLUCOSE TEST) test strip Test blood sugar(s) 1 times daily. Dx: Type 2 DM - Controlled E11.9 Insulin: No [address] (PROTONIX) 40 mg tablet Take 1 tablet by mouth once daily. 30 tablet 2 No current facility-administered medications for this visit. CURRENT ALLERGIES ALLERGIES No Known Allergies REVIEW OF SYSTEMS PAIN ASSESSMENT: Negative for pain, history of chronic pain, or current treatment for a chronic pain condition. GENERAL: No weight loss, malaise or fevers. RESPIRATORY: Negative for cough, hemoptysis, wheezing, dyspnea or shortness of breath. CARDIOVASCULAR: Negative for chest pain, leg swelling, or palpitations. GI: Not currently having abdominal pain but will experience it in the epigastric region. Denies nausea, vomiting, diarrhea, or constipation. PHYSICAL EXAMINATION BP 118/72 Pulse 76 Temp 97.7 Ht 5' 1 (1.55m) Wt 168 lb 6.4 oz (76.4kg) SpO2 97% BMI 31.84 kg/(m^2). General Appearance: Well appearing, alert, in no acute distress, well-hydrated, well nourished. Lungs: Lungs clear to auscultation. No wheezing, rhonchi, rales Heart: RRR without murmur, gallop, or rubs. No ectopy Abdomen: Normal abdominal exam Diagnostic tests reviewed for today's visit: Colonoscopy Report and Pathology 01/13/23 Findings: The perianal and digital rectal examinations were normal. Non-bleeding external and internal hemorrhoids were found. A 2 to 3 mm polyp was found in the splenic flexure. The polyp was sessile. The polyp was removed with a cold biopsy forceps. Resection and retrieval were complete. Verification of patient identification for the specimen was done by the nurse. Estimated blood loss was minimal. Impression: - Non-bleeding external and internal hemorrhoids. - One 2 to 3 mm polyp at the splenic flexure, removed with a cold biopsy forceps. Resected and retrieved. Recommendation: - Discharge patient to home (ambulatory). - Resume previous diet. - Repeat colonoscopy date to be determined after pending pathology results are reviewed for surveillance based on pathology results. - Follow up with Gail Mccain PA-C via televisit for discussion of pathology results and determination of timing of future endoscopies - Patient has a contact number available for emergencies. The signs and symptoms of potential delayed complications were discussed with the patient. Return to normal activities tomorrow. Written discharge instructions were provided to the patient. - Continue present medications. Component FINAL DIAGNOSIS A. Splenic flexure, polyp, biopsy: -Tubular adenoma. EGD Report and Pathology 05/19/2022 From procedure report - A bite block was placed. The upper endoscope was lubricated, carefully inserted in the patient's mouth, advanced into the esophagus. It was then advanced down the esophagus into the stomach, past the pylorus, then into the first and then 2nd and 3rd portion of the duodenum. No masses, polyps, or lesions were noted in the duodenum. The endoscope was then retracted back into the stomach. The stomach appeared normal, but because of the patient's complaint, mucosal biopsies of the antrum were taken for histology and H pylori. Retroflex view into the fundus and body of the stomach revealed no evidence of any masses or polyps. However, the patient was noted to have a moderate-sized hiatal hernia. There was also a sliding component that was noted. The endoscope was retracted back into the esophagus. The sliding component was approximately 3 cm and the GE junction appeared irregular. The mucosal biopsies were taken using cold grasper forceps of the GE junction. There appeared to be Winlock-colored mucosal creeping about 1 cm proximal to the GE junction. Mucosal biopsies were taken using cold grasper forceps. Because of patient's complaint of dysphagia, mid esophageal mucosal biopsies were taken using cold grasper forceps. The remainder of the esophagus appeared normal FINAL DIAGNOSIS A. Antrum (stomach), biopsy: -- Antral type gastric mucosa with change of reactive gastropathy and mild chronic gastritis. -- No H. pylori organisms are identified on H&E sections. B. Esophagogastric junction, biopsy: -- Squamous mucosa with change of reflux esophagitis. -- No glandular type mucosa present for evaluation. C. Mid esophagus, biopsy: -- Squamous mucosa with no significant histopathologic abnormalities. Assessment ASSESSMENT Gastritis without bleeding, unspecified chronicity, unspecified gastritis type (primary encounter diagnosis) Hiatal hernia RECOMMENDATION -Discussed the pathology and possible etiologies for her epigastric pain including possible gastritis, gastric/duodenal ulcers, H pylori, and her known hiatal hernia. Recommend EGD for further evaluation and biopsies -Transition to protonix 40mg daily -Schedule for EGD with biopsies to r/p H pylori, evaluate gastric mucosa, and hiatal hernia. Pending endoscopic evaluation we discussed possible hiatal hernia repair. Kip Zhang DO DATE: June 26, 2024 TIME: 10:53 AM CC: oJse Bullard MD CC: Melany Kuo [facility] 06-26-2024 History and physical note Images from the original note were not included. General Surgery Consult REASON FOR VISIT Susan Bobby is a 64 year old female who is scheduled for a consult at the request of Melany Kuo / Jose Bullard MD for gastritis. My final recommendations will be communicated back to the requesting physician by the way of the shared medical record, fax, or via [place] Mail History of Present Illness: Susan Bobby is a 64 year old female with contributing past medical and surgical history significant for irregular gastroesophgeal junction and moderate sized hiatal hernia with sliding component (EGD 2021), GERD, HTN, HLD, T2DM, s/p cholecystectomy. The patient presents with recurrent epigastric pain after eating . Started protonix in 2021. She was initially taking protonix 40mg daily then transitioned to 40mg every other day when symptoms were controlled. She was seen by Gail Mccain PA-C on 05/31/2022 for follow up after EGD to discuss possible hiatal hernia repair. At that time, she had improved symptoms on protonix and wanted to proceed with medical management and would contact the general surgery office if she had any worsening of symptoms. She reports an increased epigastric pain over the past several months after eating. The episodes of pain are intermittent, and do not occur after every meal. Denies nausea and vomiting. Denies change in bowel habits. Last colonoscopy 01/13/2023 for screening showed non-bleeding external and internal hemorrhoids and one 2-3mm polyp at the splenic flexure that was removed with cold forceps. PAST MEDICAL HISTORY No date: Acute gastritis No date: DM (diabetes mellitus) (HCC) No date: GERD (gastroesophageal reflux disease) No date: Hiatal hernia No date: HLD (hyperlipidemia) No date: HTN (hypertension) PAST SURGICAL HISTORY No date: CHOLECYSTECTOMY; N/A Comment: done when she was 23 01/13/2023: COLONOSCOPY No date: EGD W/O BRSH SPEC VARICIES INJ Comment: unsure of year 05/19/2022: EGD W/O BRSH SPEC VARICIES INJ Comment: 10/2017: TOTAL ABDOMINAL HYSTERECT W/WO RMVL TUBE OVARY; N/A Comment: for abnormal bleeding. no cancer No date: VAGINAL HYSTERECTOMY FAMILY HISTORY Problem Relation Age of Onset Hypertension Mother Dementia Father Social History Tobacco Use Smoking status: Never Smokeless tobacco: Never Vaping Use Vaping status: Never Used Substance Use Topics Alcohol use: No Drug use: No The patient has the following: Problem List Noted Noted By Resolved Resolved By History of tubal ligation 11/17/2023 Tiffanie Burks MA No Overview Signed 11/17/2023 3:48 PM by Tiffanie Burks MA Comment on above: 1990 Iron deficiency 11/17/2023 Tiffanie Burks MA No Menorrhagia 11/17/2023 Tiffanie Burks MA No Onychomycosis 11/17/2023 Tiffanie Burks MA No Osteopenia 11/17/2023 Tiffanie Burks MA No Postmenopausal bleeding 11/17/2023 Tiffanie Burks MA No Sleep disorder 11/17/2023 Tiffanie Burks MA No Overview Signed 11/17/2023 3:48 PM by Tiffanie Burks MA Comment on above: testosterone normal try exercise- she has noted it better in past with exercise 1985 3rd child- 1990 Stress incontinence in female 11/17/2023 Tiffanie Burks MA No Controlled type 2 diabetes mellitus without complication ([facility]) 05/10/2023 Jose Bullard MD No Obesity, Class I, BMI 30-34.9 05/19/2022 Claire Redman MD No CKD (chronic kidney disease) stage 3, GFR 30-59 ml/min ([facility]) 05/13/2022 Jose Bullard MD No Hypertension, essential 12/20/2018 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, 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 No GERD without esophagitis 12/20/2018 Podlogar, 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 No Hyperlipidemia, mixed 12/20/2018 Podlogar, 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 No Abnormal glucose tolerance test (GTT) 11/17/2023 Tiffanie Burks MA 03/22/2024 Jose Bullard MD Non-smoker 11/17/2023 Tiffanie Burks MA 03/22/2024 Jose Bullard MD Shortness of breath at rest 11/17/2023 Tiffanie Burks MA 03/22/2024 Jose Bullard MD Overview Signed 11/17/2023 3:48 PM by Tiffanie Burks MA Comment on above: awaiting pfts if negative send to cardio Suprapubic pain 11/17/2023 Tiffanie Burks MA 03/22/2024 Jose Bullard MD Overview Signed 11/17/2023 3:48 PM by Tiffanie Burks MA Comment on above: if urine negative do pelvic us Swelling of extremity 11/17/2023 Tiffanie Burks MA 03/22/2024 Jose Bullard MD MEDICATIONS Current Outpatient Medications Medication Sig Dispense Refill calcium phosphate dibas/vit D3 (VITAMIN D, WITH CALCIUM, ORAL) Take by mouth. benazepril (LOTENSIN) 20 mg tablet Take 1 tablet by mouth once daily. 30 tablet 5 hydroCHLOROthiazide 25 mg tablet Take 1 tablet by mouth once daily. 30 tablet 5 metFORMIN (GLUCOPHAGE) 500 mg tablet Take 1 tablet by mouth daily with breakfast. 30 tablet 5 rosuvastatin (CRESTOR) 5 mg tablet Take 1 tablet by mouth once daily. 30 tablet 5 multivitamin (DAILY VITAMIN ORAL) Take by mouth once daily. blood sugar diagnostic (BLOOD GLUCOSE TEST) test strip Test blood sugar(s) 1 times daily. Dx: Type 2 DM - Controlled E11.9 Insulin: No [address] (PROTONIX) 40 mg tablet Take 1 tablet by mouth once daily. 30 tablet 2 No current facility-administered medications for this visit. CURRENT ALLERGIES ALLERGIES No Known Allergies REVIEW OF SYSTEMS PAIN ASSESSMENT: Negative for pain, history of chronic pain, or current treatment for a chronic pain condition. GENERAL: No weight loss, malaise or fevers. RESPIRATORY: Negative for cough, hemoptysis, wheezing, dyspnea or shortness of breath. CARDIOVASCULAR: Negative for chest pain, leg swelling, or palpitations. GI: Not currently having abdominal pain but will experience it in the epigastric region. Denies nausea, vomiting, diarrhea, or constipation. PHYSICAL EXAMINATION BP 118/72 Pulse 76 Temp 97.7 Ht 5' 1 (1.55m) Wt 168 lb 6.4 oz (76.4kg) SpO2 97% BMI 31.84 kg/(m^2). General Appearance: Well appearing, alert, in no acute distress, well-hydrated, well nourished. Lungs: Lungs clear to auscultation. No wheezing, rhonchi, rales Heart: RRR without murmur, gallop, or rubs. No ectopy Abdomen: Normal abdominal exam Diagnostic tests reviewed for today's visit: Colonoscopy Report and Pathology 01/13/23 Findings: The perianal and digital rectal examinations were normal. Non-bleeding external and internal hemorrhoids were found. A 2 to 3 mm polyp was found in the splenic flexure. The polyp was sessile. The polyp was removed with a cold biopsy forceps. Resection and retrieval were complete. Verification of patient identification for the specimen was done by the nurse. Estimated blood loss was minimal. Impression: - Non-bleeding external and internal hemorrhoids. - One 2 to 3 mm polyp at the splenic flexure, removed with a cold biopsy forceps. Resected and retrieved. Recommendation: - Discharge patient to home (ambulatory). - Resume previous diet. - Repeat colonoscopy date to be determined after pending pathology results are reviewed for surveillance based on pathology results. - Follow up with Gail Mccain PA-C via televisit for discussion of pathology results and determination of timing of future endoscopies - Patient has a contact number available for emergencies. The signs and symptoms of potential delayed complications were discussed with the patient. Return to normal activities tomorrow. Written discharge instructions were provided to the patient. - Continue present medications. Component FINAL DIAGNOSIS A. Splenic flexure, polyp, biopsy: -Tubular adenoma. EGD Report and Pathology 05/19/2022 From procedure report - A bite block was placed. The upper endoscope was lubricated, carefully inserted in the patient's mouth, advanced into the esophagus. It was then advanced down the esophagus into the stomach, past the pylorus, then into the first and then 2nd and 3rd portion of the duodenum. No masses, polyps, or lesions were noted in the duodenum. The endoscope was then retracted back into the stomach. The stomach appeared normal, but because of the patient's complaint, mucosal biopsies of the antrum were taken for histology and H pylori. Retroflex view into the fundus and body of the stomach revealed no evidence of any masses or polyps. However, the patient was noted to have a moderate-sized hiatal hernia. There was also a sliding component that was noted. The endoscope was retracted back into the esophagus. The sliding component was approximately 3 cm and the GE junction appeared irregular. The mucosal biopsies were taken using cold grasper forceps of the GE junction. There appeared to be Winlock-colored mucosal creeping about 1 cm proximal to the GE junction. Mucosal biopsies were taken using cold grasper forceps. Because of patient's complaint of dysphagia, mid esophageal mucosal biopsies were taken using cold grasper forceps. The remainder of the esophagus appeared normal FINAL DIAGNOSIS A. Antrum (stomach), biopsy: -- Antral type gastric mucosa with change of reactive gastropathy and mild chronic gastritis. -- No H. pylori organisms are identified on H&E sections. B. Esophagogastric junction, biopsy: -- Squamous mucosa with change of reflux esophagitis. -- No glandular type mucosa present for evaluation. C. Mid esophagus, biopsy: -- Squamous mucosa with no significant histopathologic abnormalities. Assessment ASSESSMENT Gastritis without bleeding, unspecified chronicity, unspecified gastritis type (primary encounter diagnosis) Hiatal hernia RECOMMENDATION -Discussed the pathology and possible etiologies for her epigastric pain including possible gastritis, gastric/duodenal ulcers, H pylori, and her known hiatal hernia. Recommend EGD for further evaluation and biopsies -Transition to protonix 40mg daily -Schedule for EGD with biopsies to r/p H pylori, evaluate gastric mucosa, and hiatal hernia. Pending endoscopic evaluation we discussed possible hiatal hernia repair. Kip Zhang DO DATE: June 26, 2024 TIME: 10:53 AM CC: Jose Bullard MD CC: Melany Kuo documented in this encounter [facility] 06-12-2024 Note Formatting of this n ote might be different from the original. June 12, 2024 PID: [id number] Susan Bobby [address] [place] [address] Dear Ms. Bobby, We are pleased to inform you that the results of your recent breast imaging exam on 06/11/2024 are normal. Breast tissue can be either dense or not dense. Dense tissue makes it harder to find breast cancer on a mammogram and also raises the risk of developing breast cancer. Your breast tissue is not dense. Talk to your healthcare provider about breast density, risks for breast cancer, and your individual situation. Early detection of cancer is very important. We also understand recommendations regarding breast cancer screening are controversial. Please discuss with your primary care provider which strategy is best for you and whether a mammogram is right for you. Your imaging studies and report will be kept on file at [facility] as part of your permanent medical record and are available for your continuing care. Thank you for allowing us to help in meeting your health care needs. Sincerely, Dr. Najera Interpreting Radiologist [facility] (Normal over 40) [facility] 06-12-2024 Miscellaneous Notes June 12, 2024 PID: [id number] Susan Bobby [address] [place] [address] Dear Ms. Bobby, We are pleased to inform you that the results of your recent breast imaging exam on 06/11/2024 are normal. Breast tissue can be either dense or not dense. Dense tissue makes it harder to find breast cancer on a mammogram and also raises the risk of developing breast cancer. Your breast tissue is not dense. Talk to your healthcare provider about breast density, risks for breast cancer, and your individual situation. Early detection of cancer is very important. We also understand recommendations regarding breast cancer screening are controversial. Please discuss with your primary care provider which strategy is best for you and whether a mammogram is right for you. Your imaging studies and report will be kept on file at [facility] as part of your permanent medical record and are available for your continuing care. Thank you for allowing us to help in meeting your health care needs. Sincerely, Dr. Najera Interpreting Radiologist [facility] (Normal over 40) documented in this encounter [facility] 06-11-2024 History of Present illness Narrative Radiology Service Progress Note PATIENT NAME: Susan Bobby DATE OF SERVICE: June 11, 2024 TIME: 3:39 PM PATIENT IDENTITY VERIFICATION COMPLETED USING TWO (2) IDENTIFIERS: Name and Date of confirmed by patient verbally. FALL SCREENING: Has the patient had 2 falls in the last year or 1 fall with injury or currently using an Ambulatory Assistive Device (Walker, Cane, Wheelchair, Crutches, etc.)? No PATIENT GENDER DATA: Female. status: : No status: NO. PATIENT RELEVANT IMPLANT DATA REVIEWED: Not Applicable PATIENT PRESENTS WITH AN IMPLANTABLE OR ATTACHED REPEATER OPERATOR: No RADIOLOGY DEPARTMENT: Mammography PERIPHERAL IV DATA: Not applicable SIGNED BY: Lyle Jennings June 11, 2024 3:39 PM documented in this encounter [facility] 06-11-2024 Note HNO ID: [id number] Author: ROHIT CADENA Mammo Tech Service: ? Author Type: Technologist Type: Progress Notes Filed: 06/11/2024 15:39 Note Text: Radiology Service Progress Note PATIENT NAME: Susan Bobby DATE OF SERVICE: June 11, 2024 TIME: 3:39 PM PATIENT IDENTITY VERIFICATION COMPLETED USING TWO (2) IDENTIFIERS: Name and Date of confirmed by patient verbally. FALL SCREENING: Has the patient had 2 falls in the last year or 1 fall with injury or currently using an Ambulatory Assistive Device (Walker, Cane, Wheelchair, Crutches, etc.)? No PATIENT GENDER DATA: Female. status: : No status: NO. PATIENT RELEVANT IMPLANT DATA REVIEWED: Not Applicable PATIENT PRESENTS WITH AN IMPLANTABLE OR ATTACHED REPEATER OPERATOR: No RADIOLOGY DEPARTMENT: Mammography PERIPHERAL IV DATA: Not applicable SIGNED BY: Lyle Jennings June 11, 2024 3:39 PM [facility] 06-05-2024 Instructions Melany Kuo APRN.CLAIR - 06/05/2024 1:29 PM EDT Schedule with GI. If you develop a recurrence of symptoms, let us know. documented in this encounter [facility] 06-05-2024 Note HNO ID: [id number] Author: MELANY KUO APRN.CLAIR Service: ? Author Type: Nurse Practitioner Type: Progress Notes Filed: 06/05/2024 13:45 Note Text: This is a 64 year old female who presents today with: Patient presents with: ED Follow-up: [facility] ER 06/04 dx: abd pain HISTORY OF PRESENT ILLNESS: Susan Bobby is a 64 year old female. Patient presents with: ED Follow-up: [facility] ER 06/04 dx: abd pain Patient presents today for emergency room follow-up. She went to the emergency room on 06/04/2014 with complaints of abdominal pain and vomiting. She endorsed pain in the left flank periumbilical region beginning the previous night. No diarrhea. No urinary symptoms. She had been seen in the emergency room a little over a month ago with similar symptoms and a negative evaluation. No fever. Labs in the emergency room are stable. Potassium was [address] of the abdomen did demonstrated free fluid in the pelvis which is not a new finding. There were nonobstructing renal calculi noted. Patient received IV fluids, Zofran, morphine, and Toradol in the emergency room with improvement. Pt presents that she left work after 1 hour. Refers that she tried a hot shower, but her pain continued. Describes pain in the epigastric area. Vomited three times at work and it was bile in nature.vomited two more times at home. No constipation. Stools a little looser than normal, but not diarrhea. She was sweating a lot at work, but unknown fever/chills. Takes pantoprazole every other day which controlls GERD. She is feeling better today and was able to tolerate soup without problems. Last colonoscopy: 2022. She reports that she had an EGD in the past, but many years ago. S/p jimmy. S/p CASSANDRA w/ BSO. PAST MEDICAL HISTORY: PAST MEDICAL HISTORY No date: Acute gastritis No date: DM (diabetes mellitus) (HCC) No date: GERD (gastroesophageal reflux disease) No date: Hiatal hernia No date: HLD (hyperlipidemia) No date: HTN (hypertension) PAST SURGICAL HISTORY No date: CHOLECYSTECTOMY; N/A Comment: done when she was 23 01/13/2023: COLONOSCOPY No date: EGD W/O [facility] SPEC VARICIES INJ Comment: unsure of year 05/19/2022: EGD W/O [facility] SPEC VARICIES INJ Comment: 10/2017: TOTAL ABDOMINAL HYSTERECT W/WO RMVL TUBE OVARY; N/A Comment: for abnormal bleeding. no cancer No date: VAGINAL HYSTERECTOMY ALLERGIES Patient has no known allergies. MEDICATIONS Current Outpatient Medications Medication Sig benazepril (LOTENSIN) 20 mg tablet Take 1 tablet by mouth once daily. hydroCHLOROthiazide 25 mg tablet Take 1 tablet by mouth once daily. metFORMIN (GLUCOPHAGE) 500 mg tablet Take 1 tablet by mouth daily with breakfast. pantoprazole DR (PROTONIX) 40 mg tablet Take 1 tablet by mouth every other day. rosuvastatin (CRESTOR) 5 mg tablet Take 1 tablet by mouth once daily. multivitamin (DAILY VITAMIN ORAL) Take by mouth once daily. blood sugar diagnostic (BLOOD GLUCOSE TEST) test strip Test blood sugar(s) 1 times daily. Dx: Type 2 DM - Controlled E11.9 Insulin: No No current facility-administered medications for this visit. FAMILY HISTORY Problem Relation Age of Onset Dementia Father Social History Tobacco Use Smoking status: Never Smokeless tobacco: Never Vaping Use Vaping Use: Never used Substance Use Topics Alcohol use: No Drug use: No EXAM: BP 104/62 Pulse (!) 48 Resp 16 SpO2 98% PHYSICAL EXAM: General Appearance: Well appearing, alert, in no acute distress, well-hydrated, well nourished.. Skin: Skin color, texture, turgor normal, no suspicious rashes or lesions. Head: Normocephalic, no masses, lesions, tenderness or abnormalities. Eyes: Anicteric sclera. Extraocular movements are intact. . Ears: External ears normal, canals clear, Normal TMs bilaterally. Oropharynx: Lips, mucosa, and tongue normal, teeth and gums normal, oropharynx normal. Neck: Supple, no adenopathy; thyroid symmetric, normal size, no bruits. Lungs: Lungs clear to auscultation. No wheezing, rhonchi, rales.. Heart: RRR without murmur, gallop, or rubs. No ectopy. Abdomen: Abdomen soft, some generalized tenderness in the right abdomen and epigastric area. Bowel sounds normal. No masses, organomegaly. Extremities: No deformities, edema, skin discoloration, clubbing or cyanosis. Good capillary refill. Neurologic: Gait normal. ASSESSMENT/PLAN: 1. Gastritis without bleeding, unspecified chronicity, unspecified gastritis type - ICD9: 535.50, ICD10: K29.70 Improved today. Continue PPI. Referral to GI for further eval/treat. Notify providers of any new/worsening symptoms. - CONSULT TO GASTROENTEROLOGY Discussed treatment plan and patient voices understanding. Patient's questions answered appropriately. Medications and potential side effects were discussed and patient voices understanding. Return to the office as scheduled or as needed for worsening/no improvement. I s (more content not included)... [facility] 06-05-2024 History of Present illness Narrative This is a 64 year old female who presents today with: Patient presents with: ED Follow-up: [facility] ER 06/04 dx: abd pain HISTORY OF PRESENT ILLNESS: Susan Bobby is a 64 year old female. Patient presents with: ED Follow-up: [facility] ER 06/04 dx: abd pain Patient presents today for emergency room follow-up. She went to the emergency room on 06/04/2014 with complaints of abdominal pain and vomiting. She endorsed pain in the left flank periumbilical region beginning the previous night. No diarrhea. No urinary symptoms. She had been seen in the emergency room a little over a month ago with similar symptoms and a negative evaluation. No fever. Labs in the emergency room are stable. Potassium was [address] of the abdomen did demonstrated free fluid in the pelvis which is not a new finding. There were nonobstructing renal calculi noted. Patient received IV fluids, Zofran, morphine, and Toradol in the emergency room with improvement. Pt presents that she left work after 1 hour. Refers that she tried a hot shower, but her pain continued. Describes pain in the epigastric area. Vomited three times at work and it was bile in nature.vomited two more times at home. No constipation. Stools a little looser than normal, but not diarrhea. She was sweating a lot at work, but unknown fever/chills. Takes pantoprazole every other day which controlls GERD. She is feeling better today and was able to tolerate soup without problems. Last colonoscopy: 2022. She reports that she had an EGD in the past, but many years ago. S/p jimmy. S/p CASSANDRA w/ BSO. PAST MEDICAL HISTORY: PAST MEDICAL HISTORY No date: Acute gastritis No date: DM (diabetes mellitus) (HCC) No date: GERD (gastroesophageal reflux disease) No date: Hiatal hernia No date: HLD (hyperlipidemia) No date: HTN (hypertension) PAST SURGICAL HISTORY No date: CHOLECYSTECTOMY; N/A Comment: done when she was 23 01/13/2023: COLONOSCOPY No date: EGD W/O [facility] SPEC VARICIES INJ Comment: unsure of year 05/19/2022: EGD W/O [facility] SPEC VARICIES INJ Comment: 10/2017: TOTAL ABDOMINAL HYSTERECT W/WO RMVL TUBE OVARY; N/A Comment: for abnormal bleeding. no cancer No date: VAGINAL HYSTERECTOMY ALLERGIES Patient has no known allergies. MEDICATIONS Current Outpatient Medications Medication Sig benazepril (LOTENSIN) 20 mg tablet Take 1 tablet by mouth once daily. hydroCHLOROthiazide 25 mg tablet Take 1 tablet by mouth once daily. metFORMIN (GLUCOPHAGE) 500 mg tablet Take 1 tablet by mouth daily with breakfast. pantoprazole DR (PROTONIX) 40 mg tablet Take 1 tablet by mouth every other day. rosuvastatin (CRESTOR) 5 mg tablet Take 1 tablet by mouth once daily. multivitamin (DAILY VITAMIN ORAL) Take by mouth once daily. blood sugar diagnostic (BLOOD GLUCOSE TEST) test strip Test blood sugar(s) 1 times daily. Dx: Type 2 DM - Controlled E11.9 Insulin: No No current facility-administered medications for this visit. FAMILY HISTORY Problem Relation Age of Onset Dementia Father Social History Tobacco Use Smoking status: Never Smokeless tobacco: Never Vaping Use Vaping Use: Never used Substance Use Topics Alcohol use: No Drug use: No EXAM: BP 104/62 Pulse (!) 48 Resp 16 SpO2 98% PHYSICAL EXAM: General Appearance: Well appearing, alert, in no acute distress, well-hydrated, well nourished.. Skin: Skin color, texture, turgor normal, no suspicious rashes or lesions. Head: Normocephalic, no masses, lesions, tenderness or abnormalities. Eyes: Anicteric sclera. Extraocular movements are intact. . Ears: External ears normal, canals clear, Normal TMs bilaterally. Oropharynx: Lips, mucosa, and tongue normal, teeth and gums normal, oropharynx normal. Neck: Supple, no adenopathy; thyroid symmetric, normal size, no bruits. Lungs: Lungs clear to auscultation. No wheezing, rhonchi, rales.. Heart: RRR without murmur, gallop, or rubs. No ectopy. Abdomen: Abdomen soft, some generalized tenderness in the right abdomen and epigastric area. Bowel sounds normal. No masses, organomegaly. Extremities: No deformities, edema, skin discoloration, clubbing or cyanosis. Good capillary refill. Neurologic: Gait normal. ASSESSMENT/PLAN: 1. Gastritis without bleeding, unspecified chronicity, unspecified gastritis type - ICD9: 535.50, ICD10: K29.70 Improved today. Continue PPI. Referral to GI for further eval/treat. Notify providers of any new/worsening symptoms. - CONSULT TO GASTROENTEROLOGY Discussed treatment plan and patient voices understanding. Patient's questions answered appropriately. Medications and potential side effects were discussed and patient voices understanding. Return to the office as scheduled or as needed for worsening/no improvement. I spent a total of 30 minutes on the date of the service which included preparing to see the patient, [id number] patient care, completing clinical documentation, obtaining and/or reviewing separately obtained history, performing a medically appropriate examination, counseling and educating the patient/family/caregiver, and ordering medications, tests, or procedures. Melany Kuo APRN.CLAIR documented in this encounter [facility] 06-04-2024 Note HNO ID: [id number] Author: KYLEIGH MATSON APRN.CNP Service: ? Author Type: Nurse Practitioner Type: Progress Notes Filed: 06/04/2024 09:04 Note Text: Called to triage by [facility] staff. 64 year old female with PMH GERD, DM, HTN, and hyperlipdemia presents for abdominal pain. Acute onset yesterday evening @ 2330 +RUQ and RLQ abdominal pain + N/V/D Patient brings in a cup of yellow bile Pain 10/10 Tears in eyes Given severity of pain and limitations of express care (no IV, no IV analgesics, no imaging) referred to ED Declines EMS [facility] 06-04-2024 History of Present illness Narrative Called to triage by [facility]SS staff. 64 year old female with PMH GERD, DM, HTN, and hyperlipdemia presents for abdominal pain. Acute onset yesterday evening @ 2330 +RUQ and RLQ abdominal pain + N/V/D Patient brings in a cup of yellow bile Pain 10/10 Tears in eyes Given severity of pain and limitations of express care (no IV, no IV analgesics, no imaging) referred to ED Declines EMS documented in this encounter [facility] 04-12-2024 History of Present illness Narrative Radiology Service Progress Note PATIENT NAME: Susan Bobby DATE OF SERVICE: April 12, 2024 TIME: 3:42 PM PATIENT IDENTITY VERIFICATION COMPLETED USING TWO (2) IDENTIFIERS: Name and Date of confirmed by patient verbally. FALL SCREENING: Has the patient had 2 falls in the last year or 1 fall with injury or currently using an Ambulatory Assistive Device (Walker, Cane, Wheelchair, Crutches, etc.)? No PATIENT GENDER DATA: Female. status: : No status: NO. PATIENT RELEVANT IMPLANT DATA REVIEWED: Not Applicable PATIENT PRESENTS WITH AN IMPLANTABLE OR ATTACHED REPEATER OPERATOR: No RADIOLOGY DEPARTMENT: Bone Density PERIPHERAL IV DATA: Not applicable SIGNED BY: RT Marv(R) April 12, 2024 3:42 PM documented in this encounter [facility] 03-22-2024 Instructions Jose Bullard MD - 03/22/2024 8:22 AM EDT BONE MINERAL DENSITY PATIENT INSTRUCTIONS ======= Bone mineral density testing measures the amount of calcium in certain parts of your bones. This information determines how strong your bones are. The test is used to detect osteoporosis, a disease in which the bone's mineral content and density are low, increasing a person's risk of fractures. The lumbar spine (lower back) and the hip are the skeletal sites usually examined. For the test, remember that: 1. You cannot take this test if you are . 2. Eat a normal diet on the day of the test. 3. Take your medications as you normally would. 4. DO NOT take calcium supplements (such as Tums) for 24 hours before the test. 5. On the day of the test, leave valuables (jewelry or credit cards) at home. 6. The test should be performed prior to oral, rectal or IV contrast studies, or at least 7 days after any of these studies. For the test, you may be asked to wear a hospital gown. You will lie on your back, on a padded table, in a comfortable position. Generally, you can resume your usual activities immediately. documented in this encounter [facility] 03-22-2024 History of Present illness Narrative Patient presents with: Diabetes HPI: Patient presents today for office visit for follow up. DM: Reports overall feeling well. Medication side effects: No. Home sugar check frequency/results:once daily in mornings Hypoglycemic spells: No. Watching diet: Yes. Unexpected weight loss: No. Polyuria, polydipsia: No. Vision Changes: No. Will scheduled eye exam is seen in [place]. Foot lesions or numbness or pain: No. HYPERLIPIDEMIA: Patient is taking medications: Yes. Patient is watching diet: Yes. Patient denies myalgias: Yes. Patient denies gi upset: Yes HTN: Patient is compliant with meds Yes Monitors bp at home: not often. Denies side effects: Yes. Chest pain: No. Dyspnea: No. Edema: No. Palpitations: No. Syncope: No. Headache: No. Dizziness: No. GERD: doing well. Takes meds every other day. If she misses, she has increased symptoms. No black or bloody stools. MEDICATIONS: Current Outpatient Medications Medication Sig benazepril (LOTENSIN) 20 mg tablet Take 1 tablet by mouth once daily. hydroCHLOROthiazide 25 mg tablet Take 1 tablet by mouth once daily. rosuvastatin (CRESTOR) 5 mg tablet Take 1 tablet by mouth once daily. pantoprazole DR (PROTONIX) 40 mg tablet Take 1 tablet by mouth every other day. metFORMIN (GLUCOPHAGE) 500 mg tablet Take 1 tablet by mouth daily with breakfast. multivitamin (DAILY VITAMIN ORAL) Take by mouth once daily. blood sugar diagnostic (BLOOD GLUCOSE TEST) test strip Test blood sugar(s) 1 times daily. Dx: Type 2 DM - Controlled E11.9 Insulin: No No current facility-administered medications for this visit. ALLERGIES: ALLERGIES No Known Allergies PAST MEDICAL HISTORY Diagnosis Date Acute gastritis DM (diabetes mellitus) (HCC) GERD (gastroesophageal reflux disease) Hiatal hernia HLD (hyperlipidemia) HTN (hypertension) PAST SURGICAL HISTORY Procedure Laterality Date CHOLECYSTECTOMY N/A done when she was 23 COLONOSCOPY 01/13/2023 EGD W/O [facility] SPE[facility] VARICIES INJ unsure of year EGD W/O [facility] SPEC VARICIES INJ 05/19/2022 TOTAL ABDOMINAL HYSTERECT W/WO RMVL TUBE OVARY N/A 10/2017 for abnormal bleeding. no cancer VAGINAL HYSTERECTOMY FAMILY HISTORY Problem Relation Age of Onset Dementia Father Social History Tobacco Use Smoking status: Never Smokeless tobacco: Never Vaping Use Vaping Use: Never used Substance Use Topics Alcohol use: No Drug use: No Reviewed current medications, allergies, past medical history, surgical history, family history and social history today. REVIEW OF SYSTEMS All other reviewed and negative other than HPI. HEALTH MAINTENANCE: Reviewed health maintenance issues today and recommended the following in detail. Dilated Retinal Exam due on 12/07/2022 Behavioral Health Screening Never done Mammogram Screening due on 06/09/2024 VITALS: BP 132/82 Pulse 64 Wt 77.6 kg (171 lb) SpO2 97% BMI 32.31 kg/m Last 4 Encounter Wt Readings: Date: Wt: 11/17/2023 75.8 kg (167 lb) 09/05/2023 75.8 kg (167 lb) 05/15/2023 79.8 kg (176 lb) 11/22/2022 83.6 kg (184 lb 3.2 oz) PHYSICAL EXAMINATION: General appearance: Well appearing, alert, in no acute distress, well-hydrated, well nourished. Skin: Skin color, texture, turgor normal, no suspicious rashes or lesions Head: Normocephalic, no masses, lesions, tenderness or abnormalities Lungs: Lungs clear to auscultation. No wheezing, rhonchi, rales Heart: RRR without murmur, gallop, or rubs. No ectopy Abdomen: Normal abdominal exam, Abdomen soft, non-tender. Bowel sounds normal. No masses, organomegaly Extremities: No deformities, edema, skin discoloration, clubbing or cyanosis. Good capillary refill. ASSESSMENT/PLAN: 1. Stage 3 chronic kidney disease, unspecified whether stage 3a or 3b CKD (HCC) - ICD9: 585.3, ICD10: N18.30 (primary diagnosis) - will follow. Avoid nsaids. Keep bp tight. 2. Encounter for screening mammogram for breast cancer - ICD9: V76.12, ICD10: Z12.31 - Follow up for annual exam in one year. - WENDY SCREENING 3. Hypertension, essential - ICD9: 401.9, ICD10: I10 - Controlled - Continue current medications - BENAZEPRIL 20 MG TABLET - HYDROCHLOROTHIAZIDE 25 MG TABLET 4. Controlled type 2 diabetes mellitus without complication, unspecified whether half-way insulin use (HCC) - ICD9: 250.00, ICD10: E11.9 - Controlled - Continue current medications - METFORMIN 500 MG TABLET - COMPLETE BLOOD COUNT AND DIFFERENTIAL - COMPREHENSIVE METABOLIC PANEL - LIPID PANEL BASIC - ALBUMIN/CREATININE RATIO, URINE - HEMOGLOBIN A1C 5. GERD without esophagitis - ICD9: 530.81, ICD10: K21.9 - not using meds daily. Continue current medications. Notify us if any difficulties are noted. - PANTOPRAZOLE 40 MG TABLET,DELAYED RELEASE 6. Esophageal dysphagia - ICD9: 787.29, ICD10: R13.19 - PANTOPRAZOLE 40 MG TABLET,DELAYED RELEASE 7. Hyperlipidemia, mixed - ICD9: 272.2, ICD10: E78.2 - Controlled - Continue current medications - ROSUVASTATIN 5 MG TABLET 8. Osteopenia, unspecified location - ICD9: 733.90, ICD10: M85.80 - recheck bone density. 9. Obesity, Class I, BMI 30-34.9 - ICD9: 278.00, ICD10: E66.9 - continue watching diet. 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 (HCC) GERD without esophagitis Esophageal reflux Esophageal dysphagia Dysphagia, pharyngoesophageal phase Hyperlipidemia, mixed Mixed hyperlipidemia Osteopenia, unspecified location Obesity, Class I, BMI 30-34.9 Obesity, unspecified Asymptomatic postmenopausal status documented in this encounter [facility]11-14-2023 History of Present illness Narrative* Sayda Reece APRN.[employer] - 09/05/2023 4:35 PM EST Subjective Patient came in with nausea vomiting diarrhea for the last few days patient says it is all gone nowand she feels much better but she needs a work note. Patient denies any symptoms today. The history is provided by the patient. No language therapist was used. Diarrhea Review of Systems Constitutional: Negative. Gastrointestinal: Positive for diarrhea. Skin: Negative. Objective Physical Exam Constitutional: Appearance: Normal appearance. Cardiovascular: Rate and Rhythm: Normal rate and regular rhythm. Heart sounds: Normal heart sounds. Pulmonary: Effort: Pulmonary effort is normal. Breath sounds: Normal breath sounds. Abdominal: General: Abdomen is flat. Palpations: Abdomen is soft. Tenderness: There is no abdominal tenderness. Neurological: Mental Status: She is alert. PAST MEDICAL HISTORY Diagnosis Date Acute gastritis DM (diabetes mellitus) (HCC) GERD (gastroesophageal reflux disease) Hiatal hernia HLD (hyperlipidemia) HTN (hypertension) PAST SURGICAL HISTORY Procedure Laterality Date CHOLECYSTECTOMY N/A done when she was 23 COLONOSCOPY 01/13/2023 EGD [facility] SPEC VARICIES INJ unsure of year EGD W/O [facility] SPEC VARICIES INJ 05/19/2022 TOTAL ABDOMINAL HYSTERECT W/WO RMVL TUBE OVARY N/A 10/2017 for abnormal bleeding. no cancer VAGINAL HYSTERECTOMY ALLERGIES Patient has no known allergies. MEDICATIONS benazepril (LOTENSIN) 20 mg tablet Take 1 tablet by mouth once daily. hydroCHLOROthiazide 25 mg tablet Take 1 tablet by mouth once daily. rosuvastatin (CRESTOR) 5 mg tablet Take 1 tablet by mouth once daily. pantoprazole DR (PROTONIX) 40 mg tablet Take 1 tablet by mouth every other day. metFORMIN (GLUCOPHAGE) 500 mg tablet Take 1 tablet by mouth daily with breakfast. multivitamin (DAILY VITAMIN ORAL) Take by mouth once daily. blood sugar diagnostic (BLOOD GLUCOSE TEST) test strip Test blood sugar(s) 1 times daily. Dx: Type 2 DM - Controlled E11.9 Insulin: No FAMILY HISTORY Problem Relation Age of Onset Dementia Father Social History Tobacco Use Smoking status: Never Smokeless tobacco: Never Vaping Use Vaping Use: Never used Substance Use Topics Alcohol use: No Drug use: No ASSESSMENT/PLAN: 1. Encounter to obtain excuse from work - ICD9: V68.89, ICD10: Z02.89 Was given a work note patient will follow-up if anything indicates a follow-up. Sayda Reece APRN.[employer] [facility] Miscellaneous Notes* Telephone Encounter - Leila Best LPN - 09/05/2023 3:39 PM EST Patient notified. Verbalized understanding. [facility] * Telephone Encounter - Jose Bullard MD - 09/05/2023 3:29 PM EST Will need seen by one of us * Telephone Encounter - Monica Hawk Ma - 09/05/2023 2:43 PM EST See pt message and advise. No appt's available tomorrow am with you and pt has not been seen. Monica Hawk Ma documented in this encounterAs[facility]08[facility] Miscellaneous Notes* Letter - Coordinator, Mammography - 06/12/2023 7:41 AM EDT June 12, 2023 PID: [id number] Susan Bobby [address] [place] [address] Dear Ms. Bobby, We are pleased to inform you that the results of your recent breast imaging exam on 06/09/2023 are normal. Early detection of cancer is very important. We also understand recommendations regarding breast cancer screening are controversial. Please discuss with your primary care provider which strategy is best for you and whether a mammogram is right for you. Your imaging studies and report will be kept on file at [facility] as part of your permanent medical record and are available for your continuing care. Thank you for allowing us to help in meeting your health care needs. Sincerely, Dr. Pearson Interpreting Radiologist [facility] (Normal over 40) documented in this encounterAs[facility]08-18-[facility]23 History of Present illness Narrative* Nicky Zamudio RT(R) - 06/09/2023 2:50 PM EDT Radiology Service Progress Note PATIENT NAME: Susan Bobby DATE OF SERVICE: June 09, 2023 TIME: 3:00 PM PATIENT IDENTITY VERIFICATION COMPLETED USING TWO (2) IDENTIFIERS: Name and Date of confirmedby patient verbally. FALL SCREENING: Has the patient had 2 falls in the last year or 1 fall with injury or currently using an Ambulatory Assistive Device (Walker, Cane, Wheelchair, Crutches, etc.)? No PATIENT GENDER DATA: Female. status: : No status: NO. PATIENT RELEVANT IMPLANT DATA REVIEWED: Yes RADIOLOGY DEPARTMENT: Mammography PERIPHERAL IV DATA: Not applicable SIGNED BY: RT Howard(R) June 09, 2023 3:00 PM documented in this [facility]07-19-2023 Miscellaneous Notes* Telephone Encounter - Gail Billingsley RN - 05/10/2023 6:26 PM EDT Pt called and is notified of providers message. Pt voices understanding. Gail Billingsley RN * Telephone Encounter - Jose Bullard MD - 05/10/2023 4:35 PM EDT placed * Telephone Encounter - Norah Carson - 05/10/2023 3:58 PM EDT Patient is requesting labs before her 05/15 appointment. Please review and advise. Thank you! documented in this [facility]03-30-2023 Miscellaneous Notes* Telephone Encounter - Mayte Foster LPN - 01/19/2023 4:50 PM EDT [facility], , history and recall letter done. Mayte Foster LPN * Telephone Encounter - Gail Mccain PA-C - 01/19/2023 4:11 PM EDT Patient did not sign in for scheduled virtual visit to review endoscopy results. Please let her know pathology returned as a tubular adenoma-benign, but premalignant type of polyp. Recommend repeat colonoscopy in 5 years for surveillance based on size and pathology of polyp. Please update HM and surgical history and generate recall letter for 5 years documented in this encounter[facility]03[facility]23 Miscellaneous Notes* Telephone Encounter - Mayte Foster LPN - 01/19/2023 4:48 PM EDT Patient updated via [facility]. documented in this encounterAs[facility]03-30-[facility]23 Miscellaneous Notes* Telephone Encounter - Eleanor Aguirre LPN - 01/19/2023 10:25 AM EDT Patient phones requesting refills as follows: Requested Prescriptions Pending Prescriptions Disp Refills metFORMIN (GLUCOPHAGE) 500 mg tablet 90 tablet 1 Sig: Take 1 tablet by mouth daily with breakfast. LEORA-11/15/22 Labs-04/30/22 NOV-05/15/23 med filled 08/02/22 Please review and advise. Eleanor Aguirre LPN documented in this encounterAs[facility]01-31-[facility]23 History of Present illness Narrative* Sussy Reid MD - 11/22/2022 7:15 PM EST HISTORY AND PHYSICAL Susan Bobby 1960 REFERRING PHYSICIAN: Jose Bullard MD CHIEF COMPLAINT: Consult (Colonoscopy consult) HPI: The patient is a 62 year old female referred for endoscopy. Susan notes that years ago, she had a colonoscopy done by Dr. Ac at [facility]. (I did not find any records of patient having had a colonoscopy at [facility]) The patient denies blood in stools, denies abdominal pain, and denies changes in bowel habits. The patient notes no colon cancer in immediate family. From review of records at [facility], patient had 52% of predicted diffusion capacity via PFT done in 2017. She denies shortness of breath at present. She does have hypertension and diabetes with occasional elevated HgbA1c. PAST MEDICAL HISTORY Diagnosis Date Acute gastritis DM (diabetes mellitus) (HCC) GERD (gastroesophageal reflux disease) Hiatal hernia HLD (hyperlipidemia) HTN (hypertension) PAST SURGICAL HISTORY Procedure Laterality Date CHOLECYSTECTOMY N/A done when she was 23 EGD W/O [facility] SPEC VARICIES INJ unsure of year EGD W/[facility] SPEC VARICIES INJ 05/19/2022 TOTAL ABDOMINAL HYSTERECT W/WO RMVL TUBE OVARY N/A 10/2017 for abnormal bleeding. no cancer Current Outpatient Medications Medication Sig benazepril (LOTENSIN) 20 mg tablet Take 1 tablet by mouth once daily. hydroCHLOROthiazide (HYDRODIURIL, ESIDRIX) 25 mg tablet Take 1 tablet by mouth once daily. rosuvastatin (CRESTOR) 5 mg tablet Take 1 tablet by mouth once daily. pantoprazole DR (PROTONIX) 40 mg tablet Take 1 tablet by mouth every other day. metFORMIN (GLUCOPHAGE) 500 mg tablet Take 1 tablet by mouth daily with breakfast. multivitamin (DAILY VITAMIN ORAL) Take by mouth once daily. blood sugar diagnostic (BLOOD GLUCOSE TEST) test strip Test blood sugar(s) 1 times daily. Dx: Type 2 DM - Controlled E11.9 Insulin: No peg 3350-Electrolytes (GOLYTELY) 236-22.74-6.74 -5.86 gram suspension Take 4,000 mL by mouth one time only for 1 dose. Refer to printed prep instructions from your provider. ALLERGIES: Patient has no known allergies. PERSONAL HISTORY: Social History Tobacco Use Smoking status: Never Smokeless tobacco: Never Vaping Use Vaping Use: Never used Substance Use Topics Alcohol use: No Drug use: No FAMILY HISTORY Problem Relation Age of Onset Dementia Father The review of systems data was entered by the nurse and reviewed by al Nursing Notes: Celia Rivera RN 11/22/2022 4:34 PM Signed REVIEW OF SYSTEMS: General: The patient denies fatigue, denies weight loss, denies weight gain, denies feeling hot, and denies feelings of cold. Eyes: The patient denies glaucoma, denies eye injury/surgery, does not wear glasses or contacts. Ear/Nose/Throat: The patient denies allergies, denies hayfever, denies ear infections, and denies bloody noses. Cardiovascular: The patient denies chest pain, denies heart disease, NOTES high blood pressure,denies cardiac stent, denies prior heart attack, denies irregular heart beat, NOTES high cholesterol, denies poor circulation, denies heart failure, other cardiac issues, denies claudication, denies cold feet, denies peripheral arterial stent. Respiratory: The patient denies tuberculosis, denies pneumonia, denies frequent cough, denies pulmonary embolism, denies shortness of breath, and denies coughing up blood. Gastrointestinal: The patient denies difficulty swallowing, NOTES acid reflux, denies ulcers, denies vomiting, denies jaundice/hepatitis, denies gallbladder problems, denies black or tarry stools, NOTES hemorrhoids, denies bleeding from rectum, denies diverticulitis, denies constipation, denies diarrhea, denies loss of stool control, and NOTES hernias. Kidney/Bladder: The patient denies kidney stones, denies urine infections, and denies bloody urine. Skin: The patient denies a history of skin cancer, denies bleeding/changing moles, and denies a history of skin rash. Neurologic: The patient denies a history of epilepsy/convulsions, denies headaches, denies head/spinal injuries, and denies stroke/TIA. Psychiatric: The patient denies psychiatric medications, denies depression, and denies voices, denies substance abuse. Endocrine: The patient denies thyroid disorders, NOTES diabetes, and denies hormonal problems. Hematologic: The patient denies a history of bruising, denies bleeding, and denies anemia, denies blood clots. Infections: The patient denies a history of measles and mumps, denies rheumatic fever, and denies sexually transmitted diseases. Musculoskeletal: The patient denies back pain/injury, denies back problems, denies sciatica, deniesknee/foot trouble, denies arthritis, or denies gout. When was patient's last Mammogram screening? 04/29/2022 Last Colonoscopy: Unknown Celia Rivera RN PHYSICAL EXAMINATION: General: The patient is 62 year old female, well nourished, well hydrated in no acute distress. Thepatient is oriented to time, place, and person. VITALS: Blood pressure 132/80, pulse 76, temperature 36.7 C (98.1 F), height 154.9 cm (5' 1), weight 83.6 kg (184 lb 3.2 oz), SpO2 98 %. Body mass index is 34.8 kg/m . Head: Normal cephalic, atraumatic Eyes: pupils are equally round, sclera are clear/anicteric Neck is supple with no tracheal deviation Respiratory: Normal respiratory excursion and pattern. Abdominal exam: benign Extremities: no clubbing, cyanosis or edema. Neuro: non focal Psych: normal mood Assessment IMPRESSION: screening for colon cancer via colonoscopy PLAN: I have discussed the above with the patient. I have offered colonoscopy , possible biopsies I have explained the procedure to the patient. I have counseled the patient as to the risks of the procedure, including but not limited to: infection, bleeding, injury to any intrabdominal organs such as liver/spleen, perforation of the GI tract,inability to complete the procedure, complications of anesthesia, etc. - the patient understands. The patient was offered a surgery/procedure at a [facility]. The provider and patient have discussed in detail the risk of exposure to and/or potential harm posed by the COVID-19 viruswith having a surgery/procedure at this time versus the risk of delaying the surgery/procedure. It is not possible to know either the risk of delaying the surgery or procedure or chance of getting aninfection with perfect accuracy, but a joint decision was made between the patient and the providerto proceed at this time with the scheduled surgery/procedure. The patient wishes to proceed. I have answered all questions to the patient s satisfaction and the patient has no further questions. Diagnoses: (Z12.11) Screening for colon cancer I have confirmed and edited as necessary, the PFSH and ROS obtained by others. Consultation requested by Dr. Jose Bullard for an opinion regarding patient's screening for colon cancer. My final recommendations will be communicated back to the requesting physician by way of shared Medical record or letter to requesting physician via US mail. Return to Clinic: The patient will be scheduled for colonoscopy at [facility]. ]Medical Decision Making: Problems: Low: Stable chronic illness Risk: Low: Low risk from testing/treatment Medical Decision Making Level: 3 - Low Sussy Reid MD documented in this encounterAsht[facility]01-31-2023 Nurse Note* Celia Rivera RN - 11/22/2022 4:33 PM EST REVIEW OF SYSTEMS: General: The patient denies fatigue, denies weight loss, denies weight gain, denies feeling hot, and denies feelings of cold. Eyes: The patient denies glaucoma, denies eye injury/surgery, does not wear glasses or contacts. Ear/Nose/Throat: The patient denies allergies, denies hayfever, denies ear infections, and denies bloody noses. Cardiovascular: The patient denies chest pain, denies heart disease, NOTES high blood pressure,denies cardiac stent, denies prior heart attack, denies irregular heart beat, NOTES high cholesterol, denies poor circulation, denies heart failure, other cardiac issues, denies claudication, denies cold feet, denies peripheral arterial stent. Respiratory: The patient denies tuberculosis, denies pneumonia, denies frequent cough, denies pulmonary embolism, denies shortness of breath, and denies coughing up blood. Gastrointestinal: The patient denies difficulty swallowing, NOTES acid reflux, denies ulcers, denies vomiting, denies jaundice/hepatitis, denies gallbladder problems, denies black or tarry stools, NOTES hemorrhoids, denies bleeding from rectum, denies diverticulitis, denies constipation, denies diarrhea, denies loss of stool control, and NOTES hernias. Kidney/Bladder: The patient denies kidney stones, denies urine infections, and denies bloody urine. Skin: The patient denies a history of skin cancer, denies bleeding/changing moles, and denies a history of skin rash. Neurologic: The patient denies a history of epilepsy/convulsions, denies headaches, denies head/spinal injuries, and denies stroke/TIA. Psychiatric: The patient denies psychiatric medications, denies depression, and denies voices, denies substance abuse. Endocrine: The patient denies thyroid disorders, NOTES diabetes, and denies hormonal problems. Hematologic: The patient denies a history of bruising, denies bleeding, and denies anemia, denies blood clots. Infections: The patient denies a history of measles and mumps, denies rheumatic fever, and denies sexually transmitted diseases. Musculoskeletal: The patient denies back pain/injury, denies back problems, denies sciatica, deniesknee/foot trouble, denies arthritis, or denies gout. When was patient's last Mammogram screening? 04/29/2022 Last Colonoscopy: Unknown Celia Rivera RN documented in this encounterAs[facility]01-31-2023 Instructions* Patient Instructions* Sussy Reid MD - 11/22/2022 4:27 PM EST Images from the original note were not included. Bowel Preparation Instructions for: Golytely, Nulytely, Trilyte or Colyte (polyethylene glycol 3350and electrolytes) IF YOU DO NOT FOLLOW THESE DIRECTIONS, YOUR COLONOSCOPY WILL BE CANCELLED. [place] Instructions: Your bowel must be empty so that your doctor can clearly view your colon. Follow all of the instructions in this handout EXACTLY as they are written. Do NOT eat any solid food the ENTIRE day before your colonoscopy. Drink only clear liquids. Buy your bowel preparation at least 5 days before your colonoscopy. TRANSPORTATION on the Day of Your Exam A responsible person MUST be present with you at Check In prior to your colonoscopy and REMAIN in the endoscopy area until you are discharged. You are NOT ALLOWED to drive, take a taxi or bus, or leave the Endoscopy Center ALONE. If you do not have a responsible taxi cab driver (family member or friend) with you to take you home, your exam cannot be done with sedation and will be cancelled. Please bring a list of all of your current medications, including any Over-the Counter medications with you. Medications If you take insulin, diabetic medications or blood thinners such as Coumadin (warfarin), Plavix (clopidogrel), Ticlid (ticlopidine hydrochloride), Agrylin (anagrelide), Xarelto (Rivaroxaban), Pradaxa(Dabigatran), Eliquis (Apixaban), and Effient (Prasugrel). You MUST call the doctors who orders those medicines for instructions on altering the dosage before your colonoscopy. All other medications should be taken the day of the exam with a sip of water including ASPIRIN. Five (5) Days Before Your Colonoscopy Do NOT take medicines that stop diarrhea - such as Imodium, Kaopectate, or Pepto Bismol. Do NOT take fiber supplements - such as Metamucil, Citrucel, or Perdiem. Do NOT take products that contain iron - such as multi-vitamins (the label lists what is in the products). Do NOT take Vitamin E. Buy the prescription bowel preparation solution at your local pharmacy or drugstore pharmacy. 1 09/2019 Bowel Preparation Instructions for: Golytely, Nulytely, Trilyte or Colyte (polyethylene glycol 3350and electrolytes) Three (3) Days Before Your Colonoscopy Do NOT eat high-fiber foods - such as popcorn, beans, seeds (flax, sunflower, quinoa), multigrain bread, nuts, salad/vegetables, or fresh and dried fruit. One (1) Day Before Your Colonoscopy Only drink clear liquids the ENTIRE DAY before your colonoscopy. Do NOT eat any solid foods. Drink at least 8 ounces of clear liquids every hour after waking up. The clear liquids you can drink include: Clear Liquid (NO RED LIQUIDS) DO NOT DRINK Gatorade, Pedialyte or Powerade Clear broth or bouillon Coffee or tea (no milk or non-dairy creamer) Carbonated and non-carbonated soft drinks Dc-Aid or other fruit flavored drinks Strained fruit juices (no pulp) Jell-O, popsicles, hard candy Water Alcohol Milk or non-dairy creamers Noodles or vegetables in soup Juice with pulp Liquid you cannot see through Do not use tobacco/vaping products The bowel preparation solution will be consumed in two parts. Mix the solution the evening before your colonoscopy and refrigerate before drinking. You may add the flavor pack that came with the bowel preparation. Do NOT add ice, sugar or any other flavorings to the solution. Part 1 At 6:00 PM - Evening before your colonoscopy Drink an 8-oz glass of bowel preparation every 10 minutes for a total of 8 glasses. You may continue to drink clear liquids until midnight. Part 2 On the day of your colonoscopy you may drink clear liquids up to (three) 3 hours before your procedure. 4 1/2 hours before your colonoscopy Drink an 8-oz glass of bowel preparation every 10 minutes for a total of 8 glasses. Fifteen (15) minutes later, drink an 8-oz glass of clear liquids every 15 minutes for a total of 2 glasses. You may continue to drink clear liquids up to (three) 3 hours before your exam. 2 09/2019 documented in this encounterAs[facility]01[facility] History of Present illness Narrative* Jose Bullard MD - 11/15/2022 4:00 PM EST Patient presents with: 6 Month Exam HPI: Patient presents today for office visit for follow up. GERD: Having heartburn but she hasn't taken her medication in 3 days. No nausea. No vomiting. No diarrhea. No black or bloody stools. No constipation. No difficulty swallowing. Still continuing being more cautious of diet and what she eats. Appetite the same Bloating gone Patient tolerating the protonix well. Saw Gastro. EGD completed DM: Checks sugar in the morning Avg 105-120 Currently treated with metformin. Tolerating metformin well. A1c trending down - last A1c 5.9 Voiding well. No hematuria. No chest pain or shortness of breath Tolerating Crestor. No myalgias MEDICATIONS: Current Outpatient Medications Medication Sig metFORMIN (GLUCOPHAGE) 500 mg tablet Take 1 tablet by mouth daily with breakfast. multivitamin (DAILY VITAMIN ORAL) Take by mouth once daily. benazepril (LOTENSIN) 20 mg tablet Take 1 tablet by mouth once daily. hydroCHLOROthiazide (HYDRODIURIL, ESIDRIX) 25 mg tablet Take 1 tablet by mouth once daily. rosuvastatin (CRESTOR) 5 mg tablet Take 1 tablet by mouth once daily. pantoprazole DR (PROTONIX) 40 mg tablet Take 1 tablet by mouth every other day. blood sugar diagnostic (BLOOD GLUCOSE TEST) test strip Test blood sugar(s) 1 times daily. Dx: Type 2 DM - Controlled E11.9 Insulin: No No current facility-administered medications for this visit. ALLERGIES: ALLERGIES No Known Allergies PAST MEDICAL HISTORY Diagnosis Date Acute gastritis DM (diabetes mellitus) (HCC) GERD (gastroesophageal reflux disease) Hiatal hernia HLD (hyperlipidemia) HTN (hypertension) PAST SURGICAL HISTORY Procedure Laterality Date CHOLECYSTECTOMY N/A done when she was 23 COLONOSCOPY SCREENING 05/19/2022 EGD W/O [facility] SPEC VARICIES INJ unsure of year EGD W/O [facility] SPEC VARICIES INJ 05/19/2022 TOTAL ABDOMINAL HYSTERECT W/WO RMVL TUBE OVARY N/A 10/2017 for abnormal bleeding. no cancer FAMILY HISTORY Problem Relation Age of Onset Dementia Father Social History Tobacco Use Smoking status: Never Smokeless tobacco: Never Vaping Use Vaping Use: Never used Substance Use Topics Alcohol use: No Drug use: No Reviewed current medications, allergies, past medical history, surgical history, family history andsocial history today. REVIEW OF SYSTEMS All other reviewed and negative other than HPI. HEALTH MAINTENANCE: Reviewed health maintenance issues today and recommended the following in detail. COVID-19 VACCINE(4 - Booster for Moderna series) - done recently. COLORECTAL CANCER SCREENING due on 06/11/2022 INFLUENZA-done recently DEPRESSION ASSESSMENT Never done HBA1C due on 10/31/2022 DILATED RETINAL EXAM - done recently VITALS: BP 126/82 Pulse 73 Ht 154.9 cm (5' 1) Wt 81.2 kg (179 lb) SpO2 98% BMI 33.82 kg/m Last 4 Encounter Wt Readings: Date: Wt: 05/31/2022 78.9 kg (174 lb) 05/13/2022 78 kg (172 lb) 05/06/2022 79.4 kg (175 lb) 04/29/2022 80.7 kg (178 lb) PHYSICAL EXAMINATION: General appearance: Well appearing, alert, in no acute distress, well-hydrated, well nourished. Skin: Skin color, texture, turgor normal, no suspicious rashes or lesions Head: Normocephalic, no masses, lesions, tenderness or abnormalities Neck: Supple, no adenopathy; thyroid symmetric, normal size, no bruits Lungs: Lungs clear to auscultation. No wheezing, rhonchi, rales Heart: RRR without murmur, gallop, or rubs. No ectopy Abdomen: Normal abdominal exam, Abdomen soft, non-tender. Bowel sounds normal. No masses, organomegaly Extremities: No deformities, edema, skin discoloration, clubbing or cyanosis. Good capillary refill. ASSESSMENT/PLAN: 1. Hypertension, essential - ICD9: 401.9, ICD10: I10 (primary diagnosis) - good control - Continue current medication(s) - Goal of BP <130/80 - BENAZEPRIL 20 MG TABLET - HYDROCHLOROTHIAZIDE 25 MG TABLET 2. Hyperlipidemia, mixed - ICD9: 272.2, ICD10: E78.2 - good control - Continue current medication. - ROSUVASTATIN 5 MG TABLET 3. GERD without esophagitis - ICD9: 530.81, ICD10: K21.9 = - PANTOPRAZOLE 40 MG TABLET,DELAYED RELEASE 4. Esophageal dysphagia - ICD9: 787.29, ICD10: R13.19 - PANTOPRAZOLE 40 MG TABLET,DELAYED RELEASE 5. Screening for colon cancer - ICD9: V76.51, ICD10: Z12.11 - CONSULT TO GENERAL SURGERY Jose Bullard MD documented in this encounterAs[facility]10-11-[facility]22 Miscellaneous Notes* Telephone Encounter - Leila Best LPN - 08/02/2022 10:06 AM EDT Patient has been identified by name and date of : Yes Patient phones for refill(s): Requested Prescriptions Pending Prescriptions Disp Refills metFORMIN (GLUCOPHAGE) 500 mg tablet 90 tablet 1 Sig: Take 1 tablet by mouth daily with breakfast. Date of last office visit in primary care: 05/13/22 Please advise. Thank you. Leila Best LPN documented in this encounterAsht[facility]ula [facility]07-22-2022 History of Present illness Narrative* Jose Bullard MD - 05/13/2022 3:37 PM EDT Patient presents with: Follow Up: GERD back on protonix and is helping HPI: Patient presents today for office visit for follow up. ABDO: Occasional heartburn but improving since last visit. No nausea. No vomiting. No diarrhea. No black or bloody stools. No constipation. No difficulty swallowing. Patient being more cautious of diet and what she eats. Mainly swallow liquids over solid foods. Better appetite since last visit. Bloating reduced since last visit. Patient tolerating the protonix well. No longer using tums. Next appt with GASTROENTEROLOGY on . Plan on completing the EGD . DM: Checks sugar in the morning Avg 105-120 Currently treated with metformin. Tolerating metformin well. A1c trending down - last A1c 5.9 Voiding well. No hematuria. No chest pain. No SOB. Lipids stable. Tolerating crestor well No myalgias See previous: have not seen the patient in several years. Has been having gi issues the last three weeks. Had run out of protonix a while ago. Has had decreased appetite. Has been throwing up periodically. Feeling bloated. Had upset stomach. Some nausea. No black or bloody stools. No diarrhea or constipation. Some bloating. No stomach pain. Using tums which helps a little. No dysuria or hematuria. No etoh or nsiads. Had seen Domingo Acevedo last year Had barium swallow: IMPRESSION: Small fixed hiatal hernia with a Schatzki ring. Moderate volume of reflux in the mid esophageal level. Was given ppi but did not follow up after. Has not had an egd etc. Food sticks for awhile. Stomach was better while on protonix. bp is ok. No chest pain or shortness of breath. No edema. DM: Sugars are doing well. Usually very well. No myalgias with lipid lowering meds. Component Latest Ref Rng & Units 04/30/2022 WBC 3.70 - 11.00 k/uL 6.01 RBC 3.90 - 5.20 m/uL 4.60 Hemoglobin 11.5 - 15.5 g/dL 12.7 Hematocrit 36.0 - 46.0 % 41.0 MCV 80.0 - 100.0 fL 89.1 MCH 26.0 - 34.0 pg 27.6 MCHC 30.5 - 36.0 g/dL 31.0 RDW-CV 11.5 - 15.0 % 14.1 Platelet Count 150 - 400 k/uL 196 MPV 9.0 - 12.7 fL 12.4 Neut% % 61.5 Abs Neut (ANC) 1.45 - 7.50 k/uL 3.70 Lymph% % 26.0 Abs Lymph 1.00 - 4.00 k/uL 1.56 Alpine% % 8.8 Abs Alpine <0.87 k/uL 0.53 Eosin% % 2.7 Abs Eosin <0.46 k/uL 0.16 Baso% % 0.8 Abs Baso <0.11 k/uL 0.05 Immature Gran % % 0.2 IMMATURE GRANS (ABS) <0.10 k/uL <0.03 NRBC /100 WBC 0.0 Absolute nRBC <0.01 k/uL <0.01 DTYPE Auto Protein, Total 6.3 - 8.0 g/dL 7.1 Albumin 3.9 - 4.9 g/dL 4.0 Calcium 8.5 - 10.2 mg/dL 9.2 Bilirubin, Total 0.2 - 1.3 mg/dL 0.9 Alkaline Phosphatase 34 - 123 U/L 79 AST 13 - 35 U/L 18 ALT 7 - 38 U/L 13 Glucose 74 - 99 mg/dL 86 BUN 7 - 21 mg/dL 10 Creatinine 0.58 - 0.96 mg/dL 1.14 (H) Sodium 136 - 144 mmol/L 140 Potassium 3.7 - 5.1 mmol/L 3.9 Chloride 97 - 105 mmol/L 103 CO2 22 - 30 mmol/L 26 Anion Gap 9 - 18 mmol/L 11 eGFR >=60 mL/min/1.73m 55 (L) Cholesterol, Total <200 mg/dL 130 Triglyceride <150 mg/dL 88 HDL Cholesterol >39 mg/dL 44 Non HDL Cholesterol <130 mg/dL 86 Fasting Time hrs 12 VLDL Cholesterol <30 mg/dL 18 TC:HDL Ratio <5.10 2.95 LDL Cholesterol <100 mg/dL 68 LDL:HDL Ratio <2.54 1.55 Creatinine, Ur Random (UCRR) 20.0 - 300.0 mg/dL 148.3 Albumin, Urine Random mg/L <12.0 Albumin/Creat Ratio <30 mg/g <8 HIV 12 Combo (Ag/Ab) Nonreactive Nonreactive HIV 1/2 Ab HIV Interpretation Hemoglobin A1C 4.3 - 5.6 % 5.9 (H) Estimated Average Glucose mg/dL 123 Hep C Antibody IA Negative Negative MEDICATIONS: Current Outpatient Medications Medication Sig multivitamin (DAILY VITAMIN ORAL) Take by mouth once daily. benazepril (LOTENSIN) 20 mg tablet Take 1 tablet by mouth once daily. hydroCHLOROthiazide (HYDRODIURIL, ESIDRIX) 25 mg tablet Take 1 tablet by mouth once daily. rosuvastatin (CRESTOR) 5 mg tablet Take 1 tablet by mouth once daily. pantoprazole DR (PROTONIX) 40 mg tablet Take 1 tablet by mouth every other day. metFORMIN (GLUCOPHAGE) 500 mg tablet Take 1 tablet by mouth daily with breakfast. blood sugar diagnostic (BLOOD GLUCOSE TEST) test strip Test blood sugar(s) 1 times daily. Dx: Type 2 DM - Controlled E11.9 Insulin: No No current facility-administered medications for this visit. ALLERGIES: ALLERGIES No Known Allergies PAST MEDICAL HISTORY Diagnosis Date Acute gastritis DM (diabetes mellitus) (HCC) GERD (gastroesophageal reflux disease) Hiatal hernia HLD (hyperlipidemia) HTN (hypertension) PAST SURGICAL HISTORY Procedure Laterality Date CHOLECYSTECTOMY N/A done when she was 23 EGD W/O [facility] SPEC VARICIES INJ unsure of year TOTAL ABDOMINAL HYSTERECT W/WO RMVL TUBE OVARY N/A 10/2017 for abnormal bleeding. no cancer FAMILY HISTORY Problem Relation Age of Onset Dementia Father Social History Tobacco Use Smoking status: Never Smoker Smokeless tobacco: Never Used Vaping Use Vaping Use: Never used Substance Use Topics Alcohol use: No Drug use: No Reviewed current medications, allergies, past medical history, surgical history, family history andsocial history today. REVIEW OF SYSTEMS All other reviewed and negative other than HPI. HEALTH MAINTENANCE: Reviewed health maintenance issues today and recommended the following in detail. PNEUMOCOCCAL(1 - PCV) Never done. Discussed with patient. DTAP,TDAP,TD(1 - Tdap) Never done. Discussed with patient. HPV TESTING Never done. SHINGRIX VACCINE(1 of 2) Never done. Discussed with patient. DIABETIC FOOT EXAM done. 05/13/22. Discussed with patient. COVID-19 VACCINE(4 - Booster for Moderna series) due on 02/10/2022 COLORECTAL CANCER SCREENING due on 06/11/2022. Ordered gen surg consult. VITALS: BP 122/82 Pulse 80 Wt 78 kg (172 lb) BMI 32.50 kg/m Last 4 Encounter Wt Readings: Date: Wt: 05/06/2022 79.4 kg (175 lb) 04/29/2022 80.7 kg (178 lb) 09/11/2021 83.5 kg (184 lb) 06/14/2021 80.7 kg (178 lb) PHYSICAL EXAMINATION: General appearance: Well appearing, alert, in no acute distress, well-hydrated, well nourished. Skin: Skin color, texture, turgor normal, no suspicious rashes or lesions Head: Normocephalic, no masses, lesions, tenderness or abnormalities Neck: Supple, no adenopathy; thyroid symmetric, normal size, no bruits Lungs: Lungs clear to auscultation. No wheezing, rhonchi, rales Heart: RRR without murmur, gallop, or rubs. No ectopy Abdomen: Normal abdominal exam, Abdomen soft, non-tender. Bowel sounds normal. No masses, organomegaly Extremities: No deformities, edema, skin discoloration, clubbing or cyanosis. Good capillary refill. Musculoskeletal: No joint swelling, deformity, or tenderness Peripheral pulses: Normal Neuro: Negative. Monofilament. ASSESSMENT/PLAN: 1. Dysphagia, unspecified type - ICD9: 787.20, ICD10: R13.10 (primary diagnosis) - stay on meds. Get egd 2. Screening for colon cancer - ICD9: V76.51, ICD10: Z12.11 - due end of the summer for colonoscopy. - CONSULT TO GENERAL SURGERY 3. Hypertension, essential - ICD9: 401.9, ICD10: I10 - good control - Continue current medication(s) - Goal of BP <130/80 - HGB A1C - BASIC METABOLIC PNL 4. Hyperlipidemia, mixed - ICD9: 272.2, ICD10: E78.2 - good control - Continue current medication. 5. Stage 3 chronic kidney disease, unspecified whether stage 3a or 3b CKD (HCC) - ICD9: 585.3, ICD10: N18.30 - avoid nsaids. Monitor labs and follow urine. - URINALYSIS, WITH MICROSCOPIC Jose Bullard RTO in six months and prn. documented in this encounterAs[facility]07-18-2022 Miscellaneous Notes* Telephone Encounter - Sena Baez - 05/09/2022 11:56 AM EDT 05/19/2022 EGD LODI documented in this encounterAs[facility]07-17-2022 History of Present illness Narrative* Sussy Reid MD - 05/08/2022 12:40 PM EDT HISTORY AND PHYSICAL Susan Bobby 1960 REFERRING PHYSICIAN: Jose Bullard MD CHIEF COMPLAINT: Consult (GERD) HPI: The patient is a 62 year old female referred for endoscopy. Susan noted episodes of havingfood stuck in the upper part of her chest area. She states that she had to drink fluids to be able to pass the food. This has happened twice in the past month, the last episode about two weeks ago. She has noted some problems with swallowing for about a year but not food getting stuck. She denies nocturnal cough, she denies food regurgitation. She does note acid reflux and heartburn but better controlled with PPI. PAST MEDICAL HISTORY Diagnosis Date Acute gastritis DM (diabetes mellitus) (HCC) GERD (gastroesophageal reflux disease) Hiatal hernia HLD (hyperlipidemia) HTN (hypertension) PAST SURGICAL HISTORY Procedure Laterality Date CHOLECYSTECTOMY N/A done when she was 23 EGD W/O [facility] SPEC VARICIES INJ unsure of year TOTAL ABDOMINAL HYSTERECT W/WO RMVL TUBE OVARY N/A 10/2017 for abnormal bleeding. no cancer Current Outpatient Medications Medication Sig multivitamin (DAILY VITAMIN ORAL) Take by mouth once daily. benazepril (LOTENSIN) 20 mg tablet Take 1 tablet by mouth once daily. hydroCHLOROthiazide (HYDRODIURIL, ESIDRIX) 25 mg tablet Take 1 tablet by mouth once daily. rosuvastatin (CRESTOR) 5 mg tablet Take 1 tablet by mouth once daily. pantoprazole DR (PROTONIX) 40 mg tablet Take 1 tablet by mouth every other day. metFORMIN (GLUCOPHAGE) 500 mg tablet Take 1 tablet by mouth daily with breakfast. blood sugar diagnostic (BLOOD GLUCOSE TEST) test strip Test blood sugar(s) 1 times daily. Dx: Type 2 DM - Controlled E11.9 Insulin: No ALLERGIES: Patient has no known allergies. PERSONAL HISTORY: Social History Tobacco Use Smoking status: Never Smoker Smokeless tobacco: Never Used Vaping Use Vaping Use: Never used Substance Use Topics Alcohol use: No Drug use: No FAMILY HISTORY Problem Relation Age of Onset Dementia Father The review of systems data was entered by the nurse and reviewed by al Nursing Notes: Celia Rivera RN 05/06/2022 3:50 PM Signed REVIEW OF SYSTEMS: General: The patient denies fatigue, denies weight loss, denies weight gain, denies feeling hot, and denies feelings of cold. Eyes: The patient denies glaucoma, denies eye injury/surgery, does not wear glasses or contacts. Ear/Nose/Throat: The patient denies allergies, denies hayfever, denies ear infections, and denies bloody noses. Cardiovascular: The patient denies chest pain, denies heart disease, NOTES high blood pressure,denies cardiac stent, denies prior heart attack, denies irregular heart beat, denies high cholesterol, denies poor circulation, denies heart failure, other cardiac issues, denies claudication, denies coldfeet, denies peripheral arterial stent. Respiratory: The patient denies tuberculosis, denies pneumonia, denies frequent cough, denies pulmonary embolism, denies shortness of breath, and denies coughing up blood. Gastrointestinal: The patient denies difficulty swallowing, NOTES acid reflux, denies ulcers, denies vomiting, denies jaundice/hepatitis, NOTES gallbladder problems, denies black or tarry stools, denies hemorrhoids, denies bleeding from rectum, denies diverticulitis, denies constipation, denies diarrhea, denies loss of stool control, and NOTES hernias. Kidney/Bladder: The patient denies kidney stones, denies urine infections, and denies bloody urine. Skin: The patient denies a history of skin cancer, denies bleeding/changing moles, and denies a history of skin rash. Neurologic: The patient denies a history of epilepsy/convulsions, denies headaches, denies head/spinal injuries, and denies stroke/TIA. Psychiatric: The patient denies psychiatric medications, denies depression, and denies voices, denies substance abuse. Endocrine: The patient denies thyroid disorders, NOTES diabetes, and denies hormonal problems. Hematologic: The patient denies a history of bruising, denies bleeding, and denies anemia, denies blood clots. Infections: The patient denies a history of measles and mumps, denies rheumatic fever, and denies sexually transmitted diseases. Musculoskeletal: The patient denies back pain/injury, denies back problems, denies sciatica, deniesknee/foot trouble, denies arthritis, or denies gout. When was patient's last Mammogram screening? 05/02/2022 Last Colonoscopy: Unknown Celia Rivera RN PHYSICAL EXAMINATION: General: The patient is 62 year old female, well nourished, well hydrated in no acute distress. Thepatient is oriented to time, place, and person. VITALS: Blood pressure 108/58, pulse 78, temperature 36.9 C (98.4 F), height 154.9 cm (5' 1), weight 79.4 kg (175 lb), SpO2 99 %. Body mass index is 33.07 kg/m . Head: Normal cephalic, atraumatic Eyes: pupils are equally round, sclera are clear/anicteric Neck is supple with no tracheal deviation Respiratory: Normal respiratory excursion and pattern. Abdominal exam: benign Extremities: no clubbing, cyanosis or edema. Neuro: non focal Psych: normal mood Assessment IMPRESSION: dysphagia PLAN: I have discussed the above with the patient. I have offered EGD, possible biopsies I have explained the procedure to the patient. I have counseled the patient as to the risks of the procedure, including but not limited to: infection, bleeding, injury to any intrabdominal organs such as liver/spleen, perforation of the GI tract,inability to complete the procedure, complications of anesthesia, etc. the patient understands. The patient was offered a [facility]. The provider and patient have discussed in detail the risk of exposure to and/or potential harm posed by the COVID-19 viruswith having a surgery/procedure at this time versus the risk of delaying the surgery/procedure. It is not possible to know either the risk of delaying the surgery or procedure or chance of getting aninfection with perfect accuracy, but a joint decision was made between the patient and the providerto proceed at this time with the scheduled surgery/procedure. I have explained to the patient the difference between IV conscious sedation and MAC anesthesia - and I have offered either, according to the patient's wishes. I have explained that with IV conscioussedation there is no anesthesia provider available and therefore there is a limitation of the amount of IV medications that can be given and that the patient may wake up in the middle of the procedure and/or experience pain/discomfort during the procedure. Further discussion was done and the patient was given the opportunity to ask questions and all questions were answered. The patient chooses MAC anesthesia. Patient was counseled that if there are changes in his/her medical condition, to let the office know if surgery should proceed. If there are changes in patient's medical condition from time of this encounter to the day of the procedure that preclude anesthesia, patient may have procedure cancelled for patient's safety. The patient wishes to proceed. I have answered all questions to the patient s satisfaction and the patient has no further questions. Diagnoses: (R13.14) Pharyngoesophageal dysphagia (primary encounter diagnosis) I have confirmed and edited as necessary, the PFSH and ROS obtained by others. Consultation requested by Dr. Jose Bullard for an opinion regarding Patient's dysphagia. My final recommendations will be communicated back to the requesting physician by way of shared Medical recordor letter to requesting physician via US mail. Return to Clinic: The patient will be scheduled for EGD at [facility]. Medical Decision Making: Problems: Low: Stable chronic illness Risk: Low: Low risk from testing/treatment Medical Decision Making Level: 3 - Low Sussy Reid MD documented in this encounterAsht[facility]07-15-2022 Nurse Note* Celia Rivera RN - 05/06/2022 3:48 PM EDT REVIEW OF SYSTEMS: General: The patient denies fatigue, denies weight loss, denies weight gain, denies feeling hot, and denies feelings of cold. Eyes: The patient denies glaucoma, denies eye injury/surgery, does not wear glasses or contacts. Ear/Nose/Throat: The patient denies allergies, denies hayfever, denies ear infections, and denies bloody noses. Cardiovascular: The patient denies chest pain, denies heart disease, NOTES high blood pressure,denies cardiac stent, denies prior heart attack, denies irregular heart beat, denies high cholesterol, denies poor circulation, denies heart failure, other cardiac issues, denies claudication, denies coldfeet, denies peripheral arterial stent. Respiratory: The patient denies tuberculosis, denies pneumonia, denies frequent cough, denies pulmonary embolism, denies shortness of breath, and denies coughing up blood. Gastrointestinal: The patient denies difficulty swallowing, NOTES acid reflux, denies ulcers, denies vomiting, denies jaundice/hepatitis, NOTES gallbladder problems, denies black or tarry stools, denies hemorrhoids, denies bleeding from rectum, denies diverticulitis, denies constipation, denies diarrhea, denies loss of stool control, and NOTES hernias. Kidney/Bladder: The patient denies kidney stones, denies urine infections, and denies bloody urine. Skin: The patient denies a history of skin cancer, denies bleeding/changing moles, and denies a history of skin rash. Neurologic: The patient denies a history of epilepsy/convulsions, denies headaches, denies head/spinal injuries, and denies stroke/TIA. Psychiatric: The patient denies psychiatric medications, denies depression, and denies voices, denies substance abuse. Endocrine: The patient denies thyroid disorders, NOTES diabetes, and denies hormonal problems. Hematologic: The patient denies a history of bruising, denies bleeding, and denies anemia, denies blood clots. Infections: The patient denies a history of measles and mumps, denies rheumatic fever, and denies sexually transmitted diseases. Musculoskeletal: The patient denies back pain/injury, denies back problems, denies sciatica, deniesknee/foot trouble, denies arthritis, or denies gout. When was patient's last Mammogram screening? 05/02/2022 Last Colonoscopy: Unknown Celia Rivera RN documented [facility] encounter[facility] History of Present illness Narrative* Jose Bullard MD - 04/29/2022 11:46 AM EDT Patient presents with: Follow Up HPI: Patient presents today for office visit for follow up. I have not seen the patient in several years. Has been having gi issues the last three weeks. Had run out of protonix a while ago. Has had decreased appetite. Has been throwing up periodically. Feeling bloated. Had upset stomach. Some nausea. No black or bloody stools. No diarrhea or constipation. Some bloating. No stomach pain. Using tums which helps a little. No dysuria or hematuria. No etoh or nsiads. Had seen Domingo Acevedo last year Had barium swallow: IMPRESSION: Small fixed hiatal hernia with a Schatzki ring. Moderate volume of reflux in the mid esophageal level. Was given ppi but did not follow up after. Has not had an egd etc. Food sticks for awhile. Stomach was better while on protonix. bp is ok. No chest pain or shortness of breath. No edema. DM: Sugars are doing well. Usually very well. No myalgias with lipid lowering meds. MEDICATIONS: Current Outpatient Medications Medication Sig benazepril (LOTENSIN) 20 mg tablet Take 1 tablet by mouth once daily. hydroCHLOROthiazide (HYDRODIURIL, ESIDRIX) 25 mg tablet Take 1 tablet by mouth once daily. rosuvastatin (CRESTOR) 5 mg tablet Take 1 tablet by mouth once daily. pantoprazole DR (PROTONIX) 40 mg tablet Take 1 tablet by mouth every other day. metFORMIN (GLUCOPHAGE) 500 mg tablet Take 1 tablet by mouth daily with breakfast. blood sugar diagnostic (BLOOD GLUCOSE TEST) test strip Test blood sugar(s) 1 times daily. Dx: Type 2 DM - Controlled E11.9 Insulin: No No current facility-administered medications for this visit. ALLERGIES: ALLERGIES No Known Allergies PAST MEDICAL HISTORY Diagnosis Date DM (diabetes mellitus) (HCC) HLD (hyperlipidemia) HTN (hypertension) PAST SURGICAL HISTORY Procedure Laterality Date CHOLECYSTECTOMY N/A done when she was 23 TOTAL ABDOMINAL HYSTERECT W/WO RMVL TUBE OVARY N/A 10/2017 for abnormal bleeding. no cancer FAMILY HISTORY Problem Relation Age of Onset Dementia Father Social History Tobacco Use Smoking status: Never Smoker Smokeless tobacco: Never Used Substance Use Topics Alcohol use: No Drug use: No Reviewed current medications, allergies, past medical history, surgical history, family history andsocial history today. REVIEW OF SYSTEMS All other reviewed and negative other than HPI. HEALTH MAINTENANCE: Reviewed health maintenance issues today and recommended the following in detail. PNEUMOCOCCAL(1 - PCV) Never done HEPATITIS C SCREENING Never done HIV SCREENING Never done DTAP,TDAP,TD(1 - Tdap) Never done HPV TESTING Never done SHINGRIX VACCINE(1 of 2) Never done URINE ALBUMIN:CREATININE RATIO due on 05/30/2021 DIABETIC FOOT EXAM due on 11/30/2021 HBA1C due on 12/01/2021 VITALS: BP 133/88 Pulse 60 Temp 36.9 C (98.4 F) (Temporal) Resp 16 Wt 80.7 kg (178 lb) BMI 33.09 kg/m Last 4 Encounter Wt Readings: Date: Wt: 04/29/2022 80.7 kg (178 lb) 09/11/2021 83.5 kg (184 lb) 06/14/2021 80.7 kg (178 lb) 05/31/2021 81.3 kg (179 lb 3.2 oz) PHYSICAL EXAMINATION: General appearance: Well appearing, alert, in no acute distress, well-hydrated, well nourished. Skin: Skin color, texture, turgor normal, no suspicious rashes or lesions Head: Normocephalic, no masses, lesions, tenderness or abnormalities Neck: Supple, no adenopathy; thyroid symmetric, normal size, no bruits Lungs: Lungs clear to auscultation. No wheezing, rhonchi, rales Heart: RRR without murmur, gallop, or rubs. No ectopy Abdomen: Normal abdominal exam, Abdomen soft, non-tender. Bowel sounds normal. No masses, organomegaly Extremities: No deformities, edema, skin discoloration, clubbing or cyanosis. Good capillary refill. Musculoskeletal: No joint swelling, deformity, or tenderness Peripheral pulses: Normal Neuro: Negative. ASSESSMENT/PLAN: 1. Esophageal dysphagia - ICD9: 787.29, ICD10: R13.19 (primary diagnosis) - back on meds. Needs egd. Call if any issues. Red flags for re-assessment reviewed with patient in detail. - CONSULT TO GENERAL SURGERY - PANTOPRAZOLE 40 MG TABLET,DELAYED RELEASE 2. Hypertension, essential - ICD9: 401.9, ICD10: I10 - good control - Continue current medication(s) - Goal of BP <130/80 - BENAZEPRIL 20 MG TABLET - HYDROCHLOROTHIAZIDE 25 MG TABLET 3. Hyperlipidemia, mixed - ICD9: 272.2, ICD10: E78.2 - to be determined upon return of lab results - Continue current medication. - ROSUVASTATIN 5 MG TABLET 4. GERD without esophagitis - ICD9: 530.81, ICD10: K21.9 - Watch diet. Call if worsens. - CONSULT TO GENERAL SURGERY - PANTOPRAZOLE 40 MG TABLET,DELAYED RELEASE 5. Controlled type 2 diabetes mellitus without complication, unspecified whether parts counterman insulin use (HCC) - ICD9: 250.00, ICD10: E11.9 Controlled. - Continue current medications - CBC + DIFF - COMP METABOLIC PANEL - LIPID PANEL BASIC - HGB A1C - ALBUMIN/CREAT RATIO RND UR - CBC + DIFF - COMP METABOLIC PANEL - LIPID PANEL BASIC - ALBUMIN/CREAT RATIO RND UR - HGB A1C 6. Need for hepatitis C screening test - ICD9: V73.89, ICD10: Z11.59 - HEP C AB IA W/CONF SCRN 7. Screening for HIV (human immunodeficiency virus) - ICD9: V73.89, ICD10: Z11.4 - HIV 1 2 COMBO(AG/AB),WITH REFLEX TO DIFFERENTIATION Jose Bullard RTO in two weeks. and prn. documented in this encounterAs[facility] Miscellaneous Notes* Letter - Mammography Coordinator - 04/29/2022 11:17 AM EDT April 29, 2022 PID: [id number] Susan Bobby [address] [place] [address] Dear Ms. Bobby, We are pleased to inform you that the results of your recent breast imaging exam on 04/29/2022 are normal. Early detection of cancer is very important. We also understand recommendations regarding breast cancer screening are controversial. Please discuss with your primary care provider which strategy is best for you and whether a mammogram is right for you. Your imaging studies and report will be kept on file at [facility] as part of your permanent medical record and are available for your continuing care. Thank you for allowing us to help in meeting your health care needs. Sincerely, Dr. Pearson Interpreting Radiologist [facility] (Normal over 40) documented in this encounterAshtabula [facility]07-07-2022 Miscellaneous Notes* Telephone Encounter - Erick Sequeira LPN - 04/28/2022 8:09 AM EDT See [facility] message. Last rx(s) were written on 06/14/21 #90 with 1 refills. Pt should have been out of medication about 6 months ago. Also, pt is overdue for office visit. [facility] message to pt notifying of the same. Awaiting response. documented in this encounterCleveland [id number] History of Present illness Narrative* Evangelista Clayton RT(R) - 09/11/2021 8:50 AM EST Radiology Service Progress Note PATIENT NAME: Susan Bobby DATE OF SERVICE: September 11, 2021 TIME: 8:52 AM PATIENT IDENTITY VERIFICATION COMPLETED USING TWO (2) IDENTIFIERS: Name and Date of confirmedby patient verbally. FALL SCREENING: Has the patient had 2 falls in the last year or 1 fall with injury or currently using an Ambulatory Assistive Device (Walker, Cane, Wheelchair, Crutches, etc.)? No PATIENT GENDER DATA: Female. status: : No status: NO. PATIENT RELEVANT IMPLANT DATA REVIEWED: Not Applicable RADIOLOGY DEPARTMENT: General X-ray: Exam(s) Completed: Lower Extremity X- Ray(s): Foot, Right and Wt. Bearing PERIPHERAL IV DATA: Not applicable SIGNED BY: RT Marv(R) September 11, 2021 8:52 AM documented in [facility]* Diagnosis Esophageal dysphagia- Primary Dysphagia, pharyngoesophageal phase Hypertension, essential Unspecified essential hypertension Hyperlipidemia, mixed Mixed hyperlipidemia GERD without esophagitis Esophageal reflux Controlled type 2 diabetes mellitus without complication, unspecified whether parts counterman insulin use (HCC) Need for hepatitis C screening test Special screening examination for other specified viral diseases Screening for HIV (human immunodeficiency virus) Special screening examination for other specified viral diseases documented in this encounter [facility]* Diagnosis Encounter for screening mammogram for breast cancer documented in this encounter [facility]* Diagnosis Pharyngoesophageal dysphagia- Primary Dysphagia, pharyngoesophageal phase documented in this encounter [facility]* Diagnosis Dysphagia, unspecified type- Primary Screening for colon cancer Special screening for malignant neoplasms, colon Hypertension, essential Unspecified essential hypertension Hyperlipidemia, mixed Mixed hyperlipidemia Stage 3 chronic kidney disease, unspecified whether stage 3a or 3b CKD (HCC) documented in this encounter [facility]* Diagnosis Dysphagia, unspecified type- Primary documented in this encounter [facility]* Diagnosis Controlled type 2 diabetes mellitus without complication, unspecified whether parts counterman insulin use (HCC) documented in this encounter [facility]* Diagnosis Hypertension, essential- Primary Unspecified essential hypertension Hyperlipidemia, mixed Mixed hyperlipidemia GERD without esophagitis Esophageal reflux Esophageal dysphagia Dysphagia, pharyngoesophageal phase Screening for colon cancer Special screening for malignant neoplasms, colon documented in this encounter [facility]* Diagnosis Screening for colon cancer Special screening for malignant neoplasms, colon documented in this encounter [facility]* Diagnosis Controlled type 2 diabetes mellitus without complication, unspecified whether half-way insulin use (HCC) Hypertension, essential Unspecified essential hypertension documented in this encounter [facility]* Diagnosis Stage 3 chronic kidney disease, unspecified whether stage 3a or 3b CKD (HCC)- Primary Controlled type 2 diabetes mellitus without complication, unspecified whether half-way insulin use (HCC) documented in this encounter [facility]* Diagnosis Encounter for screening mammogram for breast cancer documented in this encounter [facility]* Diagnosis Encounter to obtain excuse from work- Primary documented in this encounter [facility]* Diagnosis Osteopenia, unspecified location Asymptomatic postmenopausal status documented in this encounter [facility]* Diagnosis Abdominal pain, unspecified abdominal location- Primary Nausea vomiting and diarrhea Diarrhea documented in this encounter [facility]* Diagnosis Gastritis without bleeding, unspecified chronicity, unspecified gastritis type- Primary documented in this encounter [facility]* Diagnosis Encounter for screening mammogram for breast cancer documented in this encounter [facility]* Diagnosis Gastritis without bleeding, unspecified chronicity, unspecified gastritis type- Primary Hiatal hernia Diaphragmatic hernia without mention of obstruction or gangrene documented in this encounter [facility]* Diagnosis Toe pain, right Pain in limb documented in this encounter [facility]* Diagnosis Gastritis without bleeding, unspecified chronicity, unspecified gastritis type documented in this encounter [facility]* Diagnosis Heartburn- Primary Gastritis without bleeding, unspecified chronicity, unspecified gastritis type Hiatal hernia Diaphragmatic hernia without mention of obstruction or gangrene documented in this encounter [facility]* Diagnosis Hypertension, essential- Primary Unspecified essential hypertension Encounter for immunization Need for other specified prophylactic vaccination against single bacterial disease Hyperlipidemia, mixed Mixed hyperlipidemia GERD without esophagitis Esophageal reflux Gastritis without bleeding, unspecified chronicity, unspecified gastritis type Stage 3 chronic kidney disease, unspecified whether stage 3a or 3b CKD (HCC) Controlled type 2 diabetes mellitus without complication, unspecified whether half-way insulin use (HCC) Obesity, Class I, BMI 30-34.9 Obesity, unspecified Encounter for screening examination for other mental health and behavioral disorders Screening for depression Medication monitoring encounter Encounter for therapeutic drug monitoring documented in this encounter [facility]* Diagnosis Acute left flank pain- Primary Abdominal pain, unspecified site documented in this encounter [facility]* Diagnosis Cyclical vomiting syndrome not associated with migraine- Primary Flank pain Abdominal pain, unspecified site Controlled type 2 diabetes mellitus without complication, unspecified whether half-way insulin use ([facility]) documented in this encounter [facility] noteNo assessment information availableWMartins Ferry Hospital Work Phone: Evaluation note* Diagnosis Early satiety Dyspepsia Dyspepsia and other specified disorders of function of stomach documented in this encounter [facility]* Diagnosis Hypertension, essential- Primary Unspecified essential hypertension Hyperlipidemia, mixed Mixed hyperlipidemia GERD without esophagitis Esophageal reflux Stage 3 chronic kidney disease, unspecified whether stage 3a or 3b CKD (HCC) Controlled type 2 diabetes mellitus without complication, unspecified whether parts counterman insulin use ([facility]) Osteopenia, unspecified location Obesity, Class I, BMI 30-34.9 Obesity, unspecified Callus Corns and callosities Encounter for screening mammogram for breast cancer documented in this encounter [facility]* Diagnosis Gastroesophageal reflux disease, unspecified whether esophagitis present Hiatal hernia Diaphragmatic hernia without mention of obstruction or gangrene documented in this encounter [facility]* Diagnosis Gastroesophageal reflux disease, unspecified whether esophagitis present- Primary Hiatal hernia Diaphragmatic hernia without mention of obstruction or gangrene documented in this encounter [facility]* Diagnosis Gastroesophageal reflux disease, unspecified whether esophagitis present- Primary Hiatal hernia Diaphragmatic hernia without mention of obstruction or gangrene Esophageal dysphagia Dysphagia, pharyngoesophageal phase Type 2 diabetes mellitus with other specified complication, without long-term current use of insulin (HCC) Hypertension, unspecified type Hyperlipidemia, unspecified hyperlipidemia type Osteopenia, unspecified location Class 1 obesity with serious comorbidity and body mass index (BMI) of 31.0 to 31.9 in adult, unspecified obesity type documented [facility]* Diagnosis Gastroesophageal reflux disease, unspecified whether esophagitis present- Primary Hiatal hernia Diaphragmatic hernia without mention of obstruction or gangrene Esophageal dysphagia Dysphagia, pharyngoesophageal phase Type 2 diabetes mellitus with other specified complication, without long-term current use of insulin (HCC) Hypertension, unspecified type Hyperlipidemia, unspecified hyperlipidemia type Osteopenia, unspecified location Class 1 obesity with serious comorbidity and body mass index (BMI) of 31.0 to 31.9 in adult, unspecified obesity type [facility] Additional Instructions Your blood work and CT scan of your abdomen and pelvis show no findings to explain your pain. I recommend Tylenol and Advil every 6 hours as needed. Use the Valium for breakthrough pain or muscle spasms. Follow-up with your primary care doctor this week.[facility] Work Phone: Hospital Discharge instructions Additional Instructions You had worsening back pain last 2 days. You had a previous CT scan in [place] of abdomen pelvis negative. A CT angiogram abdomen pelvis yesterday was negative. You had a CT angiogram of your chest today that is negative. Incidental pulmonary nodule 3 mm noted. There is a noted hiatal hernia that is known to you. Noted mild degenerative changes of the spine. Your symptoms are better currently. Discussed with your primary care team. Continue gabapentin, continue your Valium as needed. Use oxycodone as needed. Follow-up with Dr. Reid your surgeon to rediscuss your hiatal hernia. Follow-up with your PCP for continued pain control as needed.[facility] Work Phone: Reason for referral (narrative)* Diagnostic Procedure Only (Routine) - Closed Specialty Diagnoses / Procedures Referred By Kenton almodovar Referred To Contact [facility] Diagnoses Encounter for screening mammogram for breast cancer Procedures WENDY SCREENING SCREENING MAMMOGRAPHY BI 2-VIEW BREAST INC Jose Giraldo MD [address] [place] [address] [facility] [address] [place] [address] Referral ID Status Reason Start Date Expiration Date V isits Requested Visits Authorized [id number] Closed Auto-Generate d Referral 09/01/2021 10/01/2022 1 1 [facility] for referral (narrative)* Outpatient Procedure (Routine) - Closed Specialty Diagnoses / Procedures Referred By Kenton almodovar Referred To Contact Diagnoses Dysphagia, unspecified type Procedures EGD DIAGNOSTIC ESOPHAGOGASTRODUODENOSCOPY TRANSORAL DIAGNOSTIC Sussy Reid MD [address] [place] [address] Surgery [address] [place] [address] Referral ID Status Reason Start Date Expiration Date V isits Requested Visits Authorized [id number] Closed Auto-Generate d Referral 05/09/2022 10/22/2022 1 1 [facility] for referral (narrative)* Outpatient Procedure (Routine) - Pending Review Specialty Diagnoses / Procedures Referred By Kenton almodovar Referred To Contact [facility] Diagnoses Screening for colon cancer Procedures COLONOSCOPY SCREENING COLONOSCOPY FLX DX W/COLLJ SPEC WHEN PFRMD Sussy Reid MD [address] [place] [address] [facility] [address] [place] [address] Referral ID Status Reason Start Date Expiration Date Visits Requested Visits Authorized [id number] Pending Review Auto-Generat ed Referral 11/22/2022 11/22/2023 1 1 [facility] for referral (narrative)* Diagnostic Procedure Only (Routine) - Closed Specialty Diagnoses / Procedures Referred By Kenton t Referred To Contact [facility] Diagnoses Encounter for screening mammogram for breast cancer Procedures WENDY SCREENING SCREENING MAMMOGRAPHY BI 2-VIEW BREAST INC CAD Jose Bullard MD [address] [place] [address] [facility] [address] [place] [address] Referral ID Status Reason Start Date Expiration Date V isits Requested Visits Authorized [id number] Closed Auto-Generate d Referral 05/15/2023 06/13/2024 1 1 [facility] for referral (narrative)* Diagnostic Procedure Only (Routine) - Authorized Specialty Diagnoses / Procedures Referred By Contac t Referred To Contact XR IMAGING Diagnoses Osteopenia, unspecified location Asymptomatic postmenopausal status Procedures DXA-AXIAL SKELETON Jose Bullard MD [address] [place] [address] X[facility] Imaging [facility] Referral ID Status Reason Start Date Expiration Date Visits Requested Visits Authorized [id number] Authorized Auto-Generat ed Referral 03/22/2024 04/21/2025 1 1 * Diagnostic Procedure Only (Routine) - Pending Review Specialty Diagnoses / Procedures Referred By Contac t Referred To Contact [facility] Diagnoses Encounter for screening mammogram for breast cancer Procedures WENDY SCREENING SCREENING MAMMOGRAPHY BI 2-VIEW BREAST INC CAD Jose Bullard MD [address] [place] [address] [facility] [address] [place] [id number] Referral ID Status Reason Start Date Expiration Date Visits Requested Visits Authorized [id number] Pending Review Auto-Generat ed Referral 03/22/2024 04/21/2025 1 1 [facility] for referral (narrative)* Outpatient Procedure (Routine) - Authorized Specialty Diagnoses / Procedures Referred By Contac t Referred To Contact [facility] Diagnoses Gastritis without bleeding, unspecified chronicity, unspecified gastritis type Hiatal hernia Procedures EGD DIAGNOSTIC ESOPHAGOGASTRODUODENOSC OPY TRANSORAL DIAGNOSTIC Kip Zhang, DO [address] [place] [address] [facility] [address] [place] [address] Referral ID Status Reason Start Date Expiration Date Visits Requested Visits Authorized [id number] Authorized Auto-Generat ed Referral 06/28/2024 10/22/2024 1 1 [facility] for referral (narrative)* Diagnostic Procedure Only (Urgent) - Closed Specialty Diagnoses / Procedures Referred By Contac t Referred To Contact XR IMAGING Diagnoses Toe pain, right Procedures XR FOOT GENERAL 3V AP/LAT/OBL RIGHT X-RAY FOOT MINIMUM 3 VIEWS Gail Fraser APRN.[employer] [address] [place] [address] [place] [address] Referral ID Status Reason Start Date Expiration Date V isits Requested Visits Authorized [id number] Closed Auto-Generate d Referral 09/11/2021 10/11/2022 [facility] Procedure (Routine) - Closed Specialty Diagnoses / Procedures Referred By Contac t Referred To Contact [facility] Diagnoses Gastritis without bleeding, unspecified chronicity, unspecified gastritis type Hiatal hernia Procedures EGD DIAGNOSTIC ESOPHAGOGASTRODUODENOSC OPY TRANSORAL DIAGNOSTIC Kip Zhang DO [address] [place] [address] [facility] [address] [place] [id number] Referral ID Status Reason Start Date Expiration Date V isits Requested Visits Authorized [id number] Closed Auto-Generate d Referral 06/28/2024 10/22/2024 1 1 [facility] for referral (narrative)No reason for referral information availableWMartins Ferry Hospital Work Phone: Reason for visit Narrative* Diagnostic Procedure Only (Routine) - Closed Specialty Diagnoses / Procedures Referred By Contac t Referred To Contact [facility] Diagnoses Encounter for screening mammogram for breast cancer Procedures WENDY SCREENING SCREENING MAMMOGRAPHY BI 2-VIEW BREAST INC CAD Jose Bullard MD [address] [place] [address] [facility] [address] [place] [address] Referral ID Status Reason Start Date Expiration Date V isits Requested Visits Authorized [id number] Closed Auto-Generate d Referral 09/01/2021 10/01/2022 1 1 [facility] for visit Narrative* Diagnostic Procedure Only (Routine) - Closed Specialty Diagnoses / Procedures Referred By Contac t Referred To Contact [facility] Diagnoses Encounter for screening mammogram for breast cancer Procedures WENDY SCREENING SCREENING MAMMOGRAPHY BI 2-VIEW BREAST INC CAD Jose Bullard MD [address] [place] [address] [facility] [address] [place] [address] Referral ID Status Reason Start Date Expiration Date V isits Requested Visits Authorized [id number] Closed Auto-Generate d Referral 05/15/2023 06/13/2024 1 1 [facility] for visit Narrative* Diagnostic Procedure Only (Routine) - Closed Specialty Diagnoses / Procedures Referred By Contac t Referred To Contact XR IMAGING Diagnoses Osteopenia, unspecified location Asymptomatic postmenopausal status Procedures DXA-AXIAL SKELETON Jose Bullard MD [address] [place] [address] [place] [address] Referral ID Status Reason Start Date Expiration Date V isits Requested Visits Authorized [id number] Closed Auto-Generate d Referral 03/22/2024 04/21/2025 1 1 [facility] for visit Narrative* Diagnostic Procedure Only (Routine) - Closed Specialty Diagnoses / Procedures Referred By Contac t Referred To Contact BR IMAGING Diagnoses Encounter for screening mammogram for breast cancer Procedures WENDY SCREENING SCREENING MAMMOGRAPHY BI 2-VIEW BREAST INC CAD Jose Bullard MD [address] [place] [address] Br Imaging [address] [place] [address] Referral ID Status Reason Start Date Expiration Date V isits Requested Visits Authorized [id number] Closed Auto-Generate d Referral 03/22/2024 04/21/2025 1 1 [facility] for visit Narrative* Diagnostic Procedure Only (Urgent) - Closed Specialty Diagnoses / Procedures Referred By Contac t Referred To Contact XR IMAGING Diagnoses Toe pain, right Procedures XR FOOT GENERAL 3V AP/LAT/OBL RIGHT X-RAY FOOT MINIMUM 3 VIEWS Gail Fraser APRN.[employer] [address] [place] [address] [place] [address] Referral ID Status Reason Start Date Expiration Date V isits Requested Visits Authorized [id number] Closed Auto-Generate d Referral 09/11/2021 10/11/2022 1 1 [facility] for visit Narrative* Outpatient Procedure (Routine) - Closed Specialty Diagnoses / Procedures [facility] Diagnoses Gastritis without bleeding, unspecified chronicity, unspecified gastritis type Hiatal hernia Procedures EGD DIAGNOSTIC ESOPHAGOGASTRODUODENOSC OPY TRANSORAL DIAGNOSTIC Kip Zhang, DO [address] [place] [address] [facility] [address] [place] [address] Referral ID Status Reason Start Date Expiration Date V isits Requested Visits Authorized [id number] Closed Auto-Generate d Referral 06/28/2024 10/22/2024 1 1 [facility] for visit Narrative* Diagnostic Procedure Only (Routine) - Closed Specialty Diagnoses / Procedures [facility] To Contact XR IMAGING Diagnoses Gastroesophageal reflux disease, unspecified whether esophagitis present Hiatal hernia Procedures XR UPPER GI ROUTINE DOUBLE CONTRAST/AIR RADIOLOGIC EXAM UPR GI TRC DOUBLE CONTRAST STUDY Kyle Alexandra, DYEHOUSE WORKER.[employer]GE[employer] [address] [facility] [place] [place] [address] Phone: tel: fax: [place] [address] Referral ID Status Reason Start Date Expiration Date V isits Requested Visits Authorized [id number] Closed Auto-Generate d Referral 03/11/2025 04/10/2026 1 1 [facility] Family History No Family History Records FoundUnknown Family Member Name Dates Details Family Members In General Comments:paternal uncles and cousins- DM, brother with dm Status:Active Father Comments:HTN, dementia start ed at age 79- dx with alzheimers Status:Active Mother Comments:HTN, Hypercholester olemia Status:Active Instructions Name Dates Details [facility] : Ho w to access health information online Indication:[facility] : Ho w to access health information online - Detail Indication:[facility] Physical [facility] : Pa lisa Instructions Indication:[facility] Controlled diabetes mellitus type II without complication : How to access health information online Indication:Controlled diabetes mellitus type II without complication Controlled diabetes mellitus type II without complication : How to access health information online - Detail Indication:Controlled diabetes mellitus type II without complication Controlled diabetes mellitus type II without complication : Patient Instructions Indication:Controlled diabetes mellitus type II without complication Non-smoker : How to access h ealth information online Indication:Non-smoker Non-smoker : How to access h ealth information online - Detail Indication:Non-smoker Non-smoker : Patient Instruc tions Indication:Non-smoker Benign essential hypertensio n : How to access health information online Indication:Benign essential hypertension Benign essential hypertensio n : How to access health information online - Detail Indication:Benign essential hypertension Benign essential hypertensio n : Patient Instructions Indication:Benign essential hypertension Postmenopausal bleeding : Pa theresent Instructions Indication:Postmenopausal bleeding Other and unspecified hyperl ipidemia : Patient Instructions Indication:Other and unspecified hyperlipidemia Reason for Referral Specialty Diagnoses / Procedures Referred By Kenton almodovar Referred To Contact General Surgery Diagnoses GERD without esophagitis Esophageal dysphagia Procedures CONSULT TO GENERAL SURGERY OFFICE/OUTPATIENT [facility] 60-74 MINUTES Jose Bullard MD [address] [place] [address] Referral ID Status Reason Start Date Expiration Date Visits Requested Visits Authorized [id number] Authorized PCP Requested Referral 04/29/2022 04/29/2023 1 1 Specialty Diagnoses / Procedures Referred By Contestrellita t Referred To Contact General Surgery Diagnoses Screening for colon cancer Procedures CONSULT TO GENERAL SURGERY OFFICE/OUTPATIENT [facility] 60-74 MINUTES Jose Bullard MD [address] [place] [address] Referral ID Status Reason Start Date Expiration Date Visits Requested Visits Authorized [id number] Authorized PCP Requested Referral 05/13/2022 05/13/2023 1 1 Referral ID Status Reason Start Date Expiration Date Visits Requested Visits Authorized [id number] Authorized PCP Requested Referral 11/15/2022 11/15/2023 1 1 Specialty Diagnoses / Procedures Referred By Kenton almodovar Referred To Contact Gastroenterology Diagnoses Gastritis with hemorrhage, unspecified chronicity, unspecified gastritis type Procedures CONSULT TO GASTROENTEROLOGY OFFICE/OUTPATIENT [facility] 60 MINUTES Melany Kuo APRN.[employer] [address] [place] [address] Referral ID Status Reason Start Date Expiration Date Visits Requested Visits Authorized [id number] Authorized PCP Requested Referral 06/05/2024 06/05/2025 1 1 Summary Purpose Advance Directives No Advanced Directives Records Found Advance Directive Response Recorded Date/ Time Living Will No December 30, 2024 4:55pm Power of Business Advisor No December 30 4:55pm Advance Directive Response Recorded Date/ Time Living Will No December 30, 2024 4:55pm Power of Business Advisor No December 30 4:55pm Living Will No December 31, 2024 3:36pm Power of Business Advisor No December 31 3:36pm Chief Complaint and Reason for Visit Chief Complaint Admit Date n/v, back pain December 30, 2024 4:5 5pm Chief Complaint Admit Date n/v, back pain December 30, 2024 4:5 5pm flank pain, n/v December 31, 2024 3:2 9pm Additional Source Comments Source Comments (unrecognize d section and content) In the event this informatio n is protected by the Federal Confidentiality of Alcohol and Drug Abuse Patient Records regulations: The Federal rules restrict any use of the information to criminally investigate or prosecute any alcohol or drug abuse patient.[facility] the event this information is protected by the Federal Confidentiality of Alcohol and Drug Abuse Patient Records regulations: The Federal rules restrict any use of the information to criminally investigate or prosecute any alcohol or drug abuse patient.[facility] Center[facility] the event this information is protected by the Federal Confidentiality of Alcohol and Drug Abuse Patient Records regulations: The Federal rules restrict any use of the information to criminally investigate or prosecute any alcohol or drug abuse patient.[facility] Center[facility] the event this information is protected by the Federal Confidentiality of Alcohol and Drug Abuse Patient Records regulations: The Federal rules restrict any use of the information to criminally investigate or prosecute any alcohol or drug abuse patient.[facility] Center[facility] the event this information is protected by the Federal Confidentiality of Alcohol and Drug Abuse Patient Records regulations: The Federal rules restrict any use of the information to criminally investigate or prosecute any alcohol or drug abuse patient.[facility] CenterIn the event this information is protected by the Federal Confidentiality of Alcohol and Drug Abuse Patient Records regulations: The Federal rules restrict any use of the information to criminally investigate or prosecute any alcohol or drug abuse patient.[facility] Center[facility] the event this information is protected by the Federal Confidentiality of Alcohol and Drug Abuse Patient Records regulations: The Federal rules restrict any use of the information to criminally investigate or prosecute any alcohol or drug abuse patient.[facility] Center[facility] the event this information is protected by the Federal Confidentiality of Alcohol and Drug Abuse Patient Records regulations: The Federal rules restrict any use of the information to criminally investigate or prosecute any alcohol or drug abuse patient.[facility] Center[facility] the event this information is protected by the Federal Confidentiality of Alcohol and Drug Abuse Patient Records regulations: The Federal rules restrict any use of the information to criminally investigate or prosecute any alcohol or drug abuse patient.[facility] Center[facility] the event this information is protected by the Federal Confidentiality of Alcohol and Drug Abuse Patient Records regulations: The Federal rules restrict any use of the information to criminally investigate or prosecute any alcohol or drug abuse patient.[facility] CenterIn the event this information is protected by the Federal Confidentiality of Alcohol and Drug Abuse Patient Records regulations: The Federal rules restrict any use of the information to criminally investigate or prosecute any alcohol or drug abuse patient.[facility] Center[facility] the event this information is protected by the Federal Confidentiality of Alcohol and Drug Abuse Patient Records regulations: The Federal rules restrict any use of the information to criminally investigate or prosecute any alcohol or drug abuse patient.[facility] Center[facility] the event this information is protected by the Federal Confidentiality of Alcohol and Drug Abuse Patient Records regulations: The Federal rules restrict any use of the information to criminally investigate or prosecute any alcohol or drug abuse patient.[facility] CenterIn the event this information is protected by the Federal Confidentiality of Alcohol and Drug Abuse Patient Records regulations: The Federal rules restrict any use of the information to criminally investigate or prosecute any alcohol or drug abuse patient.[facility] CenterIn the event this information is protected by the Federal Confidentiality of Alcohol and Drug Abuse Patient Records regulations: The Federal rules restrict any use of the information to criminally investigate or prosecute any alcohol or drug abuse patient.[facility] CenterIn the event this information is protected by the Federal Confidentiality of Alcohol and Drug Abuse Patient Records regulations: The Federal rules restrict any use of the information to criminally investigate or prosecute any alcohol or drug abuse patient.[facility] CenterIn the event this information is protected by the Federal Confidentiality of Alcohol and Drug Abuse Patient Records regulations: The Federal rules restrict any use of the information to criminally investigate or prosecute any alcohol or drug abuse patient.[facility] CenterIn the event this information is protected by the Federal Confidentiality of Alcohol and Drug Abuse Patient Records regulations: The Federal rules restrict any use of the information to criminally investigate or prosecute any alcohol or drug abuse patient.[facility] CenterIn the event this information is protected by the Federal Confidentiality of Alcohol and Drug Abuse Patient Records regulations: The Federal rules restrict any use of the information to criminally investigate or prosecute any alcohol or drug abuse patient.[facility] CenterIn the event this information is protected by the Federal Confidentiality of Alcohol and Drug Abuse Patient Records regulations: The Federal rules restrict any use of the information to criminally investigate or prosecute any alcohol or drug abuse patient.[facility] CenterIn the event this information is protected by the Federal Confidentiality of Alcohol and Drug Abuse Patient Records regulations: The Federal rules restrict any use of the information to criminally investigate or prosecute any alcohol or drug abuse patient.[facility] CenterIn the event this information is protected by the Federal Confidentiality of Alcohol and Drug Abuse Patient Records regulations: The Federal rules restrict any use of the information to criminally investigate or prosecute any alcohol or drug abuse patient.[facility] CenterIn the event this information is protected by the Federal Confidentiality of Alcohol and Drug Abuse Patient Records regulations: The Federal rules restrict any use of the information to criminally investigate or prosecute any alcohol or drug abuse patient.[facility] CenterIn the event this information is protected by the Federal Confidentiality of Alcohol and Drug Abuse Patient Records regulations: The Federal rules restrict any use of the information to criminally investigate or prosecute any alcohol or drug abuse patient.[facility] CenterIn the event this information is protected by the Federal Confidentiality of Alcohol and Drug Abuse Patient Records regulations: The Federal rules restrict any use of the information to criminally investigate or prosecute any alcohol or drug abuse patient.[facility] CenterIn the event this information is protected by the Federal Confidentiality of Alcohol and Drug Abuse Patient Records regulations: The Federal rules restrict any use of the information to criminally investigate or prosecute any alcohol or drug abuse patient.[facility] CenterIn the event this information is protected by the Federal Confidentiality of Alcohol and Drug Abuse Patient Records regulations: The Federal rules restrict any use of the information to criminally investigate or prosecute any alcohol or drug abuse patient.[facility] CenterIn the event this information is protected by the Federal Confidentiality of Alcohol and Drug Abuse Patient Records regulations: The Federal rules restrict any use of the information to criminally investigate or prosecute any alcohol or drug abuse patient.[facility] CenterIn the event this information is protected by the Federal Confidentiality of Alcohol and Drug Abuse Patient Records regulations: The Federal rules restrict any use of the information to criminally investigate or prosecute any alcohol or drug abuse patient.[facility] CenterIn the event this information is protected by the Federal Confidentiality of Alcohol and Drug Abuse Patient Records regulations: The Federal rules restrict any use of the information to criminally investigate or prosecute any alcohol or drug abuse patient.[facility] CenterIn the event this information is protected by the Federal Confidentiality of Alcohol and Drug Abuse Patient Records regulations: The Federal rules restrict any use of the information to criminally investigate or prosecute any alcohol or drug abuse patient.[facility] CenterIn the event this information is protected by the Federal Confidentiality of Alcohol and Drug Abuse Patient Records regulations: The Federal rules restrict any use of the information to criminally investigate or prosecute any alcohol or drug abuse patient.[facility] CenterIn the event this information is protected by the Federal Confidentiality of Alcohol and Drug Abuse Patient Records regulations: The Federal rules restrict any use of the information to criminally investigate or prosecute any alcohol or drug abuse patient.[facility] CenterIn the event this information is protected by the Federal Confidentiality of Alcohol and Drug Abuse Patient Records regulations: The Federal rules restrict any use of the information to criminally investigate or prosecute any alcohol or drug abuse patient.[facility] CenterIn the event this information is protected by the Federal Confidentiality of Alcohol and Drug Abuse Patient Records regulations: The Federal rules restrict any use of the information to criminally investigate or prosecute any alcohol or drug abuse patient.[facility] CenterIn the event this information is protected by the Federal Confidentiality of Alcohol and Drug Abuse Patient Records regulations: The Federal rules restrict any use of the information to criminally investigate or prosecute any alcohol or drug abuse patient.[facility] CenterIn the event this information is protected by the Federal Confidentiality of Alcohol and Drug Abuse Patient Records regulations: The Federal rules restrict any use of the information to criminally investigate or prosecute any alcohol or drug abuse patient.[facility] CenterIn the event this information is protected by the Federal Confidentiality of Alcohol and Drug Abuse Patient Records regulations: The Federal rules restrict any use of the information to criminally investigate or prosecute any alcohol or drug abuse patient.[facility] CenterIn the event this information is protected by the Federal Confidentiality of Alcohol and Drug Abuse Patient Records regulations: The Federal rules restrict any use of the information to criminally investigate or prosecute any alcohol or drug abuse patient.[facility] CenterIn the event this information is protected by the Federal Confidentiality of Alcohol and Drug Abuse Patient Records regulations: The Federal rules restrict any use of the information to criminally investigate or prosecute any alcohol or drug abuse patient.[facility] CenterIn the event this information is protected by the Federal Confidentiality of Alcohol and Drug Abuse Patient Records regulations: The Federal rules restrict any use of the information to criminally investigate or prosecute any alcohol or drug abuse patient.[facility] Care Teams (unrecognized sec tion and content) Patternmaker All Around Relationship Specialty Start Date End Date Jose Bullard MD [address] [place] [address] PCP - General Family Practice 04/09/19 Patternmaker All Around Relationship Specialty Start Date End Date Jose Bullard MD [address] [place] [address] PCP - General Family Practice 04/09/19 Patternmaker All Around Relationship Specialty Start Date End Date Jose Bullard MD [address] [place] [address] PCP - General Family Practice 04/09/19 Patternmaker All Around Relationship Specialty Start Date End Date Jose Bullard MD [address] [place] [address] PCP - General Family Practice 04/09/19 Patternmaker All Around Relationship Specialty Start Date End Date Jose Bullard MD [facility] [place] [address] PCP - General Family Practice 04/09/19 Patternmaker All Around Relationship Specialty Start Date End Date Jose Bullard MD [address] [place] [address] PCP - General Family Practice 04/09/19 Patternmaker All Around Relationship Specialty Start Date End Date Jose Bullard MD [address] [place] [address] PCP - General Family Practice 04/09/19 Patternmaker All Around Relationship Specialty Start Date End Date Jose Bullard MD [address] [place] [address] PCP - General Family Medicine 04/09/19 Patternmaker All Around Relationship Specialty Start Date End Date Jose Bullard MD [address] [place] [address] PCP - General Family Medicine 04/09/19 Patternmaker All Around Relationship Specialty Start Date End Date Jose Bullard MD [address] [place] [address] PCP - General Family Medicine 04/09/19 Patternmaker All Around Relationship Specialty Start Date End Date Jose Bullard MD [address] [place] [address] PCP - General Family Medicine 04/09/19 Patternmaker All Around Relationship Specialty Start Date End Date Jose Bullard MD [address] [place] [address] PCP - General Family Medicine 04/09/19 Patternmaker All Around Relationship Specialty Start Date End Date Jose Bullard MD [address] [place] [address] PCP - General Family Medicine 04/09/19 Patternmaker All Around Relationship Specialty Start Date End Date Jose Bullard MD [address] [place] [address] PCP - General Family Medicine 04/09/19 Patternmaker All Around Relationship Specialty Start Date End Date Jose Bullard MD [address] [place] [address] PCP - General Family Medicine 04/09/19 Patternmaker All Around Relationship Specialty Start Date End Date Jose Bullard MD [address] [place] [address] PCP - General Family Medicine 04/09/19 Patternmaker All Around Relationship Specialty Start Date End Date Jose Bullard MD [address] [place] [address] PCP - General Family Medicine 04/09/19 Patternmaker All Around Relationship Specialty Start Date End Date Jose Bullard MD [address] [place] [address] PCP - General Family Medicine 04/09/19 Patternmaker All Around Relationship Specialty Start Date End Date Jose Bullard MD [address] [place] [address] PCP - General Family Medicine 04/09/19 Patternmaker All Around Relationship Specialty Start Date End Date Jose Bullard MD [address] [place] [address] PCP - General Family Medicine 04/09/19 Patternmaker All Around Relationship Specialty Start Date End Date Jose Bullard MD [address] [place] [address] PCP - General Family Medicine 04/09/19 Patternmaker All Around Relationship Specialty Start Date End Date Jose Bullard MD [address] [place] [address] PCP - General Family Medicine 04/09/19 Patternmaker All Around Relationship Specialty Start Date End Date Jose Bullard MD [address] [place] [address] PCP - General Family Medicine 04/09/19 Patternmaker All Around Relationship Specialty Start Date End Date Jose Bullard MD [address] [place] [address] PCP - General Family Medicine 04/09/19 Patternmaker All Around Relationship Specialty Start Date End Date Jose Bullard MD [address] [place] [address] PCP - General Family Medicine 04/09/19 Patternmaker All Around Relationship Specialty Start Date End Date Jose Bullard MD [address] [place] [address] PCP - General Family Medicine 04/09/19 Patternmaker All Around Relationship Specialty Start Date End Date Jose Bullard MD [address] [place] [address] PCP - General Family Medicine 04/09/19 Patternmaker All Around Relationship Specialty Start Date End Date Jose Bullard MD [address] [place] [address] PCP - General Family Medicine 04/09/19 Patternmaker All Around Relationship Specialty Start Date End Date Jose Bullard MD [address] [place] [address] PCP - General Family Medicine 04/09/19 Melany Kuo APRN.[employer] [address] [place] [address] Tier In Family Medicine 09/30/24 Leila Mansfield APRN.[employer] MEDICAL [employer]GEANT [address] [facility] [place] [address] [facility] 09/[facility]/24 Patternmaker All Around Relationship Specialty Start Date End Date Jose Bullard MD [address] [facility] [place] [address] PCP - General Family Medicine 04/09/19 Melany Kuo APRN.[employer]GEANT [address] [place] [address] Tier In Family Medicine 09/30/24 Leila Mansfield APRN.[employer]GEANT [address] [place] [address] [facility] Patternmaker All Around Relationship Specialty Start Date End Date Jose Bullard MD [address] [place] [address] PCP - General Family Medicine 04/09/19 Melany Kuo APRN.[employer] [address] [place] [address] Tier In Family Medicine 09/30/24 Leila Mansfield APRN.[employer] [address] [place] [address] [facility] 09/[facility]24 Patternmaker All Around Relationship Specialty Start Date End Date Jose Bullard MD [address] [place] [address] PCP - General Family Medicine 04/09/19 Melany Kuo APRN.[employer] [address] [place] [address] [facility] 09/30/24 Leila Mansfield APRN.[employer]ANT [address] [facility] [place] [address] [facility] 09/30/24 Team Status: Active Member Role Status Dates Dr. Jose Bullard MD Primary Care Provider Active Team Status: Inactive Member Role Status Dates Dr. Jose Bullard MD Primary Care Provider Active Start: December 30, 2024 End: December 30, 2024 Dr. Carlos A Velez DO Emergency Provider Active Start : December 30, 2024 End: December 30, 2024 Team Status: Inactive Member Role Status Dates Dr. Jose Bullard MD Primary Care Provider Active Start: December 31, 2024 End: December 31, 2024 Dr. Carlos A Velez DO Emergency Provider Active Start : December 31, 2024 End: December 31, 2024 Patternmaker All Around Relationship Specialty Start Date End Date Jose Bullard MD [address] [place] [address] PCP - General Family Medicine 04/09/19 Melany Kuo APRN.[employer]GEANT [address] [facility] [place] [address] [facility] 09/30/24 Leila Mansfield APRN.[employer]GEANT [address] [facility] [place] [id number] [facility] 09/30/24 Patternmaker All Around Relationship Specialty Start Date End Date Jose Bullard MD [address] [facility] [place], [place] [address] PCP - General Family Medicine 04/09/19 Melany Kuo APRN.[employer]GEANT [address] [facility] [place] [place] [address] [phone] In [facility] 09/30/24 Leila Mansfield DYEHOUSE WORKER.[employer] MEDICAL SERGEANT [address] [facility] [place] [address] [facility] 09/30/24 Patternmaker All Around Relationship Specialty Start Date End Date Jose Bullard MD [address] [facility] [place] [address] PCP - General Family Medicine 04/09/19 Melany Kuo APRN.[employer]GEANT [address] [facility] [place] [address] [facility] 09/30/24 Leila Mansfield DYEHOUSE WORKER.[employer] MEDICAL SERGEANT [address] [facility] [place] [address] [facility] 09/30/24 Patternmaker All Around Relationship Specialty Start Date End Date Jose Bullard MD [address] [facility] [place] [address] PCP - General Family Medicine 04/09/19 Melany Kuo DYEHOUSE WORKER.[employer] MEDICAL SERGEANT [address] [facility] [place] [address] [facility] 09/30/24 Leila Mansfield DYEHOUSE WORKER.[employer] MEDICAL SERGEANT [address] [facility] [place] [address] [facility] 09/30/24 Patternmaker All Around Relationship Specialty Start Date End Date Jose Bullard MD [address] [place] [address] PCP - General Family Medicine 04/09/19 Melany Kuo, DYEHOUSE WORKER.[employer] MEDICAL SERGEANT [address] [place], [place] [id number] [facility] 09/30/24 Leila Mansfield DYEHOUSE WORKER.[employer] MEDICAL SERGEANT [address] [place], [place] [id number] [facility] 09/30/24 Patternmaker All Around Relationship Specialty Start Date End Date Jose Bullard MD [address] [place], [place] [id number] PCP - [facility] 04/09/19 Melany Kuo APRN.[employer] MED[employer]GEANT [address] [place], [place] [id number] [facility] 09/30/24 Leila Mansfield DYEHOUSE WORKER.[employer] MEDICAL SERGEANT [address] [place], [place] [id number] [facility] 09/30/24 Reason for Visit (unrecogniz ed section and content) Reason Comments Follow Up Reason Comments Consult GERD Specialty Diagnoses / Procedures Referred By Contac t Referred To Contact General Surgery Diagnoses GERD without esophagitis Esophageal dysphagia Procedures CONSULT TO GENERAL SURGERY OFFICE/OUTPATIENT [facility] 60-74 MINUTES Jose Bullard MD [address] [place] [address] Referral ID Status Reason Start Date Expiration Date V isits Requested Visits Authorized [id number] Closed PCP Requested Referral 04/29/2022 04/29/2023 1 1 Reason Comments Follow Up GERD back on protoni x and is helping Reason Comments 05/19/2022 EGD L[facility]I Reason Onset Date Comments Refill Request 08/02/2022 Reason Comments 6 Month Exam Reason Comments Consult Colonoscopy consult Specialty Diagnoses / Procedures Referred By Contac t Referred To Contact General Surgery Diagnoses Screening for colon cancer Procedures CONSULT TO GENERAL SURGERY OFFICE/OUTPATIENT [facility] 60-74 MINUTES Joes Bullard MD [address] [place] [address] Referral ID Status Reason Start Date Expiration Date V isits Requested Visits Authorized [id number] Closed PCP Requested Referral 05/13/2022 05/13/2023 1 1 Reason Onset Date Comments Refill Request 01/19/2023 Reason Comments Results Reason Comments Patient Update Reason Comments Diarrhea vomiting, left upper shoulder x 3 days, needs work excuse Reason Comments Diabetes Reason Comments Abdominal Pain Reason Comments ED Follow-up [facility] ER 06/04 dx: abd pain Reason Comments Consult Gastritis, Gerd Specialty Diagnoses / Procedures Referred By Contac t Referred To Contact Gastroenterology Diagnoses Gastritis with hemorrhage, unspecified chronicity, unspecified gastritis type Procedures CONSULT TO GASTROENTEROLOGY OFFICE/OUTPATIENT [facility] 60 MINUTES Melany Kuo, DYEHOUSE WORKER.[employer] MEDICAL SERGEANT [address] [place] [address] Referral ID Status Reason Start Date Expiration Date V isits Requested Visits Authorized [id number] Closed PCP Requested Referral 06/05/2024 06/05/2025 1 1 Reason Comments Med Change Request Reason Comments 6 Month Exam Reason Comments Appointment Reason Comments ER F/U Flank pain given angeles apentin did finally take one last night. Not using oxycodone. Was able to eat some soup today. Reason Comments Radiology NM Specialty Diagnoses / Procedures Referred By Contac t Referred To Contact MOLECULAR & FUNCTIONAL IMAGING Diagnoses Early satiety Dyspepsia Procedures NM GASTRIC EMPTYING SOLID GASTRIC EMPTYING STUDY Kyle Alexandra, DYEHOUSE WORKER.[employer] MEDICAL SERGEANT [address] [facility] [place] [address] Phone: tel: fax: [facility] Imaging [address] [place] [address] Phone: tel: Referral ID Status Reason Start Date Expiration Date V isits Requested Visits Authorized [id number] Closed Auto-Generate d Referral 10/23/2024 10/22/2025 1 1 Reason Comments 6 Month Exam Reason Comments New Patient Specialty Diagnoses / Procedures Referred By Contac t Referred To Contact General Surgery Diagnoses Gastroesophageal reflux disease, unspecified whether esophagitis present Hiatal hernia Procedures OFFICE/OUTPATIENT [facility] 60 MINUTES Kyle Alexandra, DYEHOUSE WORKER.[employer] MEDICAL SERGEANT [address] [facility] [place] [address] Phone: tel: fax: Ernestina Grimaldo MD [address] [facility] [address] [place] [address] Phone: tel: fax: Referral ID Status Reason Start Date Expiration Date V isits Requested Visits Authorized [id number] Closed PCP Requested Referral 04/10/2025 04/10/2026 1 1 INFORMATION SOURCE (unrecogn ized section and content) DATE CREATED AUTHOR 08/12/2024 [facility] DATE CREATED AUTHOR AUTHOR'S ORGANIZ ATION 01/10/2025 [facility] DATE CREATED AUTHOR AUTHOR'S ORGANIZ ATION 04/14/2025 [facility] DATE CREATED AUTHOR AUTHOR'S ORGANIZ ATION 07/31/2025 [facility] Goals (unrecognized section and content) Goals may be documented in a n alternate sectionGoals may be documented in an alternate section FOR RECORDS PERTAINING TO PATIENTS WHO ARE OR HAVE BEEN ENROLLED IN A CHEMICAL DEPENDENCY/SUBSTANCEABUSE PROGRAM, SOME INFORMATION MAY BE OMITTED. This clinical summary was aggregated from multiple sources. Caution should be exercised in using it in the provision of clinical care. This summary normalizes information from multiple sources, and as a consequence, information in this document may materially change the coding, format and clinical context of patient data. In addition, data may be omitted in some cases. CLINICAL DECISIONS SHOULD BE BASED ON THE PRIMARY CLINICAL RECORDS. [facility] [employer] [facility]. provides no warranty or guarantee of the accuracy or completeness of information in this document.
[2025-10-12 06:01] LABS: AST(SGOT) 63 U/L (<=31); Alanine Aminotransfer ALT/SGPT 72 U/L (<=34); Albumin, Serum 4.6 g/dL (3.4-4.8); Alkaline Phosphatase 92 U/L (35-104); Anion Gap 20 (5-15); BUN 21 mg/dL (4-19); BUN/Creat Ratio 16.6 RATIO (10-20); Calcium,Total 10.2 mg/dL (7.6-11.0); Carbon Dioxide 21.4 mmol/L (21.0-32.0); Chloride 102 mmol/L (98-108); Estimated Creatinine Clearance 40.00 ml/min (50-250); Globulin 3.7 g/dL (2.2-4.2); Glucose 140 mg/dL (70-99); Potassium 3.7 mmol/L (3.3-5.1)
[2025-10-12 06:25] LABS: Mucous, Urine 0 SEEN /hpf (<or=2+); Red Blood Cells-Urine 0 SEEN /hpf (0-5)
[2025-10-12 06:27] LABS: Color, Urine Yellow (Yellow); Glucose, Dipstick Normal (Normal); Ketone-Dipstick 50 mg/dl (Negative); Leukocyte Esterase-Dipstick Negative /ul (Negative); Nitrite-Dipstick Negative (Negative); Occult Blood-Urine 25 /ul (Negative); Protein-Dipstick 30 mg/dl (Negative); Specific Gravity, Urine 1.020 (1.002-1.030); Urine Bilirubin Dipstick Negative (Negative)
[2025-10-12 06:31] VITALS: BP 112/77; PULSE 87; RESP 16; TEMP 36.5; O2SAT 99
[2025-10-12 06:37] LABS: Squamous Epithelial Cells - UA 0-5 SEEN /hpf (5-10)
[2025-10-12 06:55] LABS: SITE Not entered; VBG BASE EXCESS -1 mmol/L (-1.0-3.5); VBG PO2 71 mmHg (25-40); VBG SO2 93 % (50-70); VBG TCO2 27 mmol/L (23-33)
[2025-10-12 07:00] VITALS: BP 117/74; PULSE 68; RESP 14; TEMP 36.5; O2SAT 98
[2025-10-12 07:27] VITALS: BP 121/67; PULSE 90; RESP 18; O2SAT 99
[2025-10-12 07:58] VITALS: BP 133/73; PULSE 66; RESP 18; TEMP 36.5; O2SAT 97
== END 2025-10-12 08:08 | disposition home or self-care (01) ==
PROVIDERS: Emergency Provider Specialist/Technologist Athletic Trainer; PCP Family Medicine; Visit Provider Specialist/Technologist Athletic Trainer
DX: R10.A1 Flank pain, right side (principal); E11.9 Type 2 diabetes mellitus without complications; R11.2 Nausea with vomiting, unspecified; I10 Essential (primary) hypertension; K21.9 Gastro-esophageal reflux disease without esophagitis
CPT/HCPCS: 74174; 80053; 81001; 82803; 83605; 85025; 96361; 96374; 96375; 99283; Q9967; A4216; J2405